=== PATIENT | female | born 1975 | race Caucasian/White ===

== ENCOUNTER 2017-04-28 18:21 | Inpatient (IN) | payer MEDICARE, SELFPAY ==
--- NOTE | 2017-04-27 17:09 | HP.PCM_ITS ---
History and Physical Date of Admission: 04/28/17 Primary Provider: Xavier NGUYEN, Timmy CC: evaluation difficulty breathing. History of Present Illness: Patient comes back in today with complaints of difficulty breathing out of the right side of her nose. She also has residual discomfort in the area of the fracture repair involving the right orbital floor blowout fracture that was repaired on November 02, 2015. Her tingling on her right cheek is much improved as she states the Neurontin has been helpful. She goes to the pain center for low back pain and she gets Neurontin from their office. She states that when she pulls on her cheeks that spreads the nose a little bit and she is able to breathe a little easier. She has no visual complaints. She presents at this time for further evaluation and treatment. Past Medical History: Seasonal Allergies Arthritis Asthma Back problems Bladder/Urinary Tract Inf Diabetes Anxiety Gallstones Headaches/Migraines Hearing Problems Reflux Rheumatoid Arthritis Vision Problems right orbital floor blowout fracture deviated nasal septum internal nasal valve stenosis difficulty breathing nasal airway obstruction Past Surgical History: Gallbladder removed 3 C-sections open reduction right orbital floor blowout fracture using combined approach ( periorbital and transantral) with titanium mesh reconstruction - 11/02/15 Family History: patient is adopted Social History: Patient currently smokes every day. patient does not drink alcohol. Medications: FAMOTIDINE 20 MG ORAL TABLET (FAMOTIDINE) ORPHENADRINE CITRATE ER 100 MG ORAL TABLET EXTENDED RELEASE 12 HOUR ( ORPHENADRINE CITRATE) DIPHENHYDRAMINE HCL 25 MG ORAL TABLET (DIPHENHYDRAMINE HCL) ONDANSETRON HCL 4 MG ORAL TABLET (ONDANSETRON HCL) MELOXICAM 15 MG ORAL TABLET (MELOXICAM) NORCO 5-325 MG ORAL TABLET (HYDROCODONE-ACETAMINOPHEN) DICYCLOMINE HCL 20 MG ORAL TABLET (DICYCLOMINE HCL) ESCITALOPRAM OXALATE 10 MG ORAL TABLET (ESCITALOPRAM OXALATE) GABAPENTIN 300 MG ORAL CAPSULE (GABAPENTIN) IBUPROFEN 800 MG ORAL TABLET (IBUPROFEN) 1 tab every 8 hrs VENTOLIN HFA AEROSOL SOLUTION (ALBUTEROL SULFATE AERS) as needed PROAIR HFA AEROSOL SOLUTION (ALBUTEROL SULFATE AERS) as needed CETIRIZINE HCL 10 MG ORAL TABLET (CETIRIZINE HCL) One tablet by mouth daily LOPERAMIDE HCL 2 MG ORAL CAPSULE (LOPERAMIDE HCL) 1 capsule as needed no more than 2 capsules daily RANITIDINE HCL 150 MG ORAL TABLET (RANITIDINE HCL) 1-2 tabs twice daily SUMATRIPTAN SUCCINATE TABLET (SUMATRIPTAN SUCCINATE TABS) 50mg 1 tab as needed onset of migraine EPIPEN 2-STACI 0.3 MG/0.3ML INJECTION SOLUTION AUTO-INJECTOR (EPINEPHRINE) as needed Allergies: NAPROSYN (Critical) * BEE STINGS (Critical) Problems: 1) Dx of right orbital floor blowout fracture, sequela (OVS37-V93.31xS) 2) Dx of Deviated nasal septum (ODJ23-L49.2) (ICD-470) 3) Dx of internal nasal valve stenosis (RJY46-V21.89) (ICD-478.19) 4) Dx of Difficulty breathing (MEG41-R15.00) (ICD-786.09) 5) Dx of nasal airway obstruction (NIY48-H34.8) (ICD-519.8) Risk Factors: Smoked Tobacco Use: Current every day smoker Cigarettes: Yes -- 1 pack per day pack(s) per day, Year started: 2006 Smokeless Tobacco Use: Never Counseled to quit/cut down: yes Passive smoke exposure: yes Drug use: no HIV high-risk behavior: no Caffeine use: 1 drinks per day Alcohol use: no Exercise: yes Type of Exercise: Walking Seatbelt use: 100 % Sun Exposure: frequently Dietary Counseling: yes Review of Systems General -Denies fever, fatigue and weight loss. Eyes-denies eye pain. ENT -Denies nasal congestion and sore throat. Has difficulty breathing out of the right side of her nose. CV -Denies chest pain or discomfort, fatigue, lightheadedness and shortness of breath with exertion. Resp -Denies cough and shortness of breath. Has difficulty breathing out of the right side of her nose. pt is current smoker. GI -Denies nausea, vomiting, diarrhea and constipation. -Denies blood in urine and urinary frequency. MS -Denies joint pain, joint swelling, back pain, stiffness, muscle weakness and arthritis. Derm -Denies skin cancer and rash. Neuro -Denies headaches and weakness. Psych -Denies anxiety and depression. Endo -Denies excessive urination and excessive thirst. Heme -Denies bleeding and abnormal bruising. Vital Signs: Patient Profile: 41 Years Old Female Height: 62 inches Weight: 148.8 pounds BMI: 27.21 BSA: 1.69 Physical Exam General: -well developed, well nourished, in no acute distress. HEENT: PERRL/EOM intact, conjunctiva and sclera clear. No numbness in the right cheek. No facial swelling. No bony tenderness. There is septal deviation to the right side. Spalding maneuver is positive suggesting internal nasal valve stenosis from scarring or trauma. She is missing a lot of teeth no obvious occlusion irregularities. Throat is clear. Neck: -no masses, thyromegaly, or abnormal cervical nodes. Lungs: -clear bilaterally to auscultation. Heart: -non-displaced PMI, chest non-tender; regular rate and rhythm, S1, S2 without murmurs, rubs, or gallops. Pulses: -Radial pulses palpable Extremities: -no clubbing, cyanosis, edema, or deformity noted with normal full range of motion of all joints. Neurologic: -no focal deficits, cranial nerves II-XII grossly intact with normal sensation, reflexes, coordination, muscle strength and tone. Skin: -no rashes Cervical Nodes: -no significant adenopathy. Axillary Nodes: -no significant adenopathy. Psych: -alert and cooperative; normal mood and affect; normal attention span and concentration. Assessment and Plan Assessment 1. Nasal airway obstruction with difficulty breathing. 2. Internal nasal valve stenosis. 3. Deviated nasal septum. 4. Right orbital floor blowout fracture repair, sequela. 5. Smoker. Plan On exam the patient has a septal deviation to the right. She also has internal nasal valve stenosis with a decrease in the angle secondary to either scarring and/or trauma. The Spalding maneuver was positive which is lateral traction on the cheek leading to increased airflow. Sometimes the swelling from the face fracture and the swelling from the repair of the facial fracture can lead to scarring in this area. I will repeat a CT scan of the facial bones and mandible including axial and coronal views. This will give me a good anatomical view of the nose. To help with her breathing difficulties, she may need a septoplasty as well as a complex nasal reconstruction with placement of cartilage mechanical and auto body car checker grafts to help increase the internal nasal valve angle a little bit to help to increase airflow by decreasing the turbulence secondary to scarring and trauma. That nasal reconstruction surgery will be done under general anesthesia with a possible surgical observation overnight stay. The patient was informed of the risks and complications of the procedure including alternatives to surgery. These were discussed with her personally. She voices understanding and wishes to proceed. Some of the risks and complications were included in a form from the [employer]. Patient is aware that she will have a dorsal nasal splint for a few weeks and nasal packing for a few days. Encouraged the patient to stop smoking as it may have deleterious effects on wound healing.
[2017-04-28] VITALS (25 sets, daily range): BP systolic 104–186; BP diastolic 75–95; PULSE 77–121; RESP 6–18; TEMP 36.3–36.9; O2SAT 96–100; BMI 26.2; BMI 26.3; BMI 26.4
[2017-04-28 09:47] LABS: Hematocrit 40.9 % (37-47); Hemoglobin 13.3 g/dl (12.0-15.0); Mean Corp Hgb Conc 32.5 g/gl (32-36); Mean Corpuscular Volume 89.1 fL (81-99); Mean Platelet Vol. 11.2 fl (6.2-12.0); Platelet Count 226 K/mm3 (150-450); RBC Distribution Width CV 13.3 % (11.6-14.6); Red Blood Count 4.59 M/mm3 (4.2-5.4); White Blood Count 11.5 K/mm3 (4.4-11.0)
[2017-04-28 09:48] LABS: Scan Indicated on CBC? Y/N NO
[2017-04-28 09:51] LABS: International Normalized Ratio 0.9; Partial Thromboplast Time 27.9 Seconds (24.1-36.2); Prothrombin Time (Protime)PT. 11.5 SECONDS (11.7-14.9)
[2017-04-28 10:02] LABS: AST(SGOT) 16 U/L (15-37); Alanine Aminotransfer ALT/SGPT 33 U/L (13-56); Alkaline Phosphatase 103 U/L (45-117); Anion Gap 10 (5-15); BUN 8 mg/dL (7-18); BUN/Creat Ratio 11.9 RATIO (10-20); Bilirubin, Direct 0.05 mg/dL (0.00-0.30); Calcium,Total 8.3 mg/dL (8.5-10.1); Chloride 102 mmol/L (98-107); Creatinine, Serum 0.67 mg/dL (0.55-1.02); EST Glomerular Filtration Rate 103 mL/min (>60); Est Glom Filt Rate - Afr Amer 125 mL/min (>60); Estimated Creatinine Clearance 88.28 ml/min; Globulin 3.2 g/dL (2.2-4.2); Glucose 245 mg/dL (70-110); Potassium 3.8 mmol/L (3.5-5.1); Protein, Total 6.2 g/dL (6.4-8.2); Sodium Level 135 mmol/L (136-145)
--- NOTE | 2017-04-28 10:25 | SEP_PTH ---
PATIENT: COLLEEN MILIAN LOC: [facility]3 U#:[id number] AGE/SX: 41/F ROOM: MS311 RE04/28/[address]: Dr. Roberto Holden MD : [id number] BED: 1 DIS: 05/01/2017 SPEC #: [id number] RECD: 04/29/17 10:41 STATUS: REBECCA REQ #: [id number] KAJAL: 04/28/17 10:[address]: Roberto Holden DEPT: SURGICAL PATHOLOGY RECD BY: Jose De Jesus Tijerina ENTERED: 04/29/17 10:41 SP TYPE: SEPTUM OTHR DR: MD Dr. Ephraim Lujan DO Dr. Victor Velasquez, MD Tissues: Nasal septum, NOS Procedures: Decalcification bone/plaque Surgery Specimen Level III Comments: @ Ordering doctor for SUIII edited from to @ by RGOOD at 04/30/17 0832 @ Submitting doctor edited from to @ by RGOOD at 04/30/17 0832 HEADER OPERATION: Septoplasty, submucous resection, placement of cartilage PRE-OP DIAGNOSIS: Nasal airway obstruction with difficulty breathing; internal nasal valve stenosis; deviated nasal septum TISSUE SUBMITTED: Septal cartilage MICROSCOPIC DIAGNOSIS Nasal septal cartilage, septoplasty: Fragments of hyaline cartilage and bone with no significant pathologic change (clinically deviated septum). AM:cameron 05/01/17 MICROSCOPIC DESCRIPTION Slides are reviewed. GROSS DESCRIPTION Received in fixative is one container labeled with the patient's name and designated septal cartilage. The specimen consists of multiple fragments of cartilage and bone that in aggregate measure 3 x 2.5 x 0.3 cm. The entire specimen is submitted in one cassette after decalcification. / SJ:cameron 04/29/17 TC:5 CPT: 97914, 35454
[2017-04-28] MEDS: Clindamycin 900 MG/50 ML BAG 75 MG IV (12:22)
[2017-04-28] MEDS: Methylene Blue 1% 100 MG/10 ML VIAL (12:58)
[2017-04-28] MEDS: Phenylephrine 0.25% 15 ML NASAL.SRY NASAL (12:58)
[2017-04-28] MEDS: Mupirocin Ointment 22gm Tube 1 APPLIC (15:13)
--- NOTE | 2017-04-28 15:43 | PCM.IMDPSTOP ---
Immediate Post-Op Note Date of Procedure: 04/28/17 Primary Surgeon/Physician: Roberto Holden nutritional yeast supervisor: None Pre-Operative Diagnosis: 1. Nasal airway obstruction with difficulty breathing. 2. Internal nasal valve vestibular stenosis. 3. Deviated nasal septum. 4. Right orbital floor blowout fracture repair, sequela. 5. Smoker. Post-Operative Diagnosis: Same. Surgery/Procedure Performed:: 1. Septoplasty with submucous resection. 2. Repair internal nasal vestibular stenosis with placement bilateral cartilage front end web developer 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 Description of Surgical Findings:: Patient comes back in today with complaints of difficulty breathing out of the right side of her nose. She also has residual discomfort in the area of the fracture repair involving the right orbital floor blowout fracture that was repaired on November 02, 2015. Her tingling on her right cheek is much improved as she states the Neurontin has been helpful. She goes to the pain center for low back pain and she gets Neurontin from their office. She states that when she pulls on her cheeks that spreads the nose a little bit and she is able to breathe a little easier. She has no visual complaints. Today the patient underwent septoplasty with submucous resection and repair internal nasal vestibular stenosis with placement bilateral cartilage front end web developer 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 Urine Output - 200 ml. IV Fluids - 1500 ml. I used Merocel Rebolledo Nasal Airway Dressing x 2. Reference Number - [id number]. Lot Number - [id number]. Expiration - June 29, 2019. I used external dorsal nasal splint. ADDENDUM: While the patient was in PACU, she developed respiratory issues and had to be reintubated. She was then sent to ICU for continued monitoring and treatment. Estimated Blood Loss: 250 ml. Specimen's removed: Nasal cartilage to Pathology. Drains: None. Type of Anesthesia:: General - Admit VTE Documentation VTE Present on Admission: No VTE Mechan Device Prophylaxis: SCD's VTE Pharm Prophylaxis ordered?: Yes
--- NOTE | 2017-04-28 16:39 | NURSING ---
PT DIAPHORETIC, NOT RESPONSIVE, NOTED IN H AND P PT HAS H/O DIABETES, ACCU CHECK READS 323. DR ROYAL NOTIFIED BY PHONE. IVF WIDE OPEN AT THIS TIME. WILL CONTINUE TO MONITOR PT.
--- NOTE | 2017-04-28 17:10 | EKG12_ITS ---
Test Reason : Blood Pressure : / mmHG Vent. Rate : 105 BPM Atrial Rate : 105 BPM P-R Int : 144 ms QRS Dur : 076 ms QT Int : 356 ms P-R-T Axes : 041 000 027 degrees QTc Int : 470 ms Sinus tachycardia Otherwise normal ECG When compared with ECG of 07-SEP-2016 01:00, No significant change was found Confirmed by FARHAT NGUYEN, BRODERICK ([id number]), general expeditor KERLINE MILIAN ([id number]) on 05/05/2017 8:51:19 AM Referred By: Roberto Holden Confirmed By:BRODREICK DOUGHERTY MD
--- NOTE | 2017-04-28 17:10 | PCM.CONS.GEN ---
Problem List (1) Allergic rhinitis Status: Chronic Qualifiers: Allergic rhinitis trigger: unspecified Allergic rhinitis seasonality: unspecified seasonality Qualified Code(s): J30.9 - Allergic rhinitis, unspecified (2) Asthma Status: Chronic Qualifiers: Asthma severity: unspecified severity Asthma persistence: unspecified Asthma complication type: unspecified Qualified Code(s): J45.909 - Unspecified asthma, uncomplicated (3) Diabetes mellitus, type II Status: Chronic Qualifiers: Diabetes mellitus complication status: with unspecified complications Diabetes mellitus terminal block assembler insulin use: without halfway use Qualified Code(s): E11.8 - Type 2 diabetes mellitus with unspecified complications (4) Migraine Status: Chronic Qualifiers: Migraine type: unspecified Status migrainosus presence: without status migrainosus Intractability: not intractable Qualified Code(s): G43.909 - Migraine, unspecified, not intractable, without status migrainosus (5) Anxiety and depression Status: Chronic (6) Rheumatoid arthritis Status: Chronic Qualifiers: Rheumatoid arthritis location: unspecified site Rheumatoid factor presence: unspecified presence Qualified Code(s): M06.9 - Rheumatoid arthritis, unspecified (7) Overweight (BMI 25.0-29.9) Status: Chronic (8) Smoker Status: Chronic Comment: F17.200 Reason for Consult Date of Consultation: 04/28/17 Reason for Consultation: CODE blue, difficult airway in PACU History of Present Illness: The patient is a 41 y/o F w/ PMHx: Allergic Rhinitis, Asthma, Tobacco use, Diabetes mellitus type II, Overweight, Anxiety and Depression, Migraines, Rheumatoid Arthritis with history of prior facial trauma s/p right orbital floor intervention prior with ongoing difficulty breathing out of the right nare as well as right facial paresthesias associated prompting scheduled presentation to the [facility] for planned intervention per Dr. Holden. Patient underwent septoplasty with submucous resection w/ repair of internal nasal vestibular stenosis with placement of bilateral cartilage auto damage trainee 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 Following operative intervention and transition to PACU, patient was noted to be less responsive, became notably diaphoretic and then appeared to have respiratory distress prompting intubation in the PACU. Eventually airway obtained and patient placed on ventilator. Basic labs as well as ABG were ordered and pending upon evaluation as well as EKG, CXR. Past Medical History Past Medical History (Chronic Problems): Chronic Problems Allergic rhinitis (Chronic) Asthma (Chronic) Diabetes mellitus, type II (Chronic) Migraine (Chronic) Anxiety and depression (Chronic) Rheumatoid arthritis (Chronic) Overweight (BMI 25.0-29.9) (Chronic) Smoker (Chronic) F17.200 Allergies mold Allergy (Verified 04/27/17 15:54) Itching naproxen Allergy (Verified 04/27/17 15:54) Unknown venom-honey bee [bee venom (honey bee)] Allergy (Verified 04/27/17 15:54) Swelling amoxicillin Adverse Reaction (Verified 04/27/17 15:54) Upset Stomach guaifenesin [From Robitussin] Adverse Reaction (Verified 04/27/17 15:54) Nausea Home Medications: Ambulatory Orders Medication Instructions Recorded Ranitidine [Zantac] 150 mg PO BID PRN 12/30/13 Epinephrine [Epi Pen] 0.3 mg IM X1 PRN 10/31/15 Sumatriptan Succinate [Imitrex] 50 mg PO .X1 PRN PRN 10/31/15 Escitalopram Oxalate [Lexapro] 20 mg PO DAILY 11/24/15 DiphenhydrAMINE [Benadryl] 25 mg PO TID PRN PRN #20 capsule 02/24/16 Fluticasone 0.05% [Flonase Nasal 1 spray NASAL DAILY 05/01/16 [place]] Albuterol Inhaler [Ventolin Hfa 1 - 2 puff INHALATION Q4H PRN PRN 06/13/16 (SP)] Ibuprofen [Motrin] 800 mg PO TID PRN PRN #20 tablet 07/20/16 Gabapentin [Neurontin] 300 mg PO TID 07/25/16 Albuterol Aerosols [Ventolin 2.5 mg INHALATION Q4H PRN PRN #30 08/05/16 Aerosols] vial Aspirin/Acetaminophen/Caffeine 1 each PO PRN PRN 04/27/17 [Excedrin Migraine Caplet] Surgical History: - - Septoplasty with submucous resection, repair of internal nasal vestibular stenosis with placement of bilateral cartilage auto damage trainee grafts from the nasal septum, cholecystectomy, 3 and 3 C-sections, open reduction right orbital floor blowout fracture using combined approach with periorbital and transantral with titanium placement, mesh reconstruction. Psychiatric History: Anxiety, Depression EMERGENCY DEPARTMENT AIDE History: No pertinent EMERGENCY DEPARTMENT AIDE history Lives: Spouse/ Significant Other Smoking Status: Current every day smoker Tobacco Use: Cigarettes Alcohol: None Drugs: None - *Family History Maternal History Items: - - Family history is unknown as she is adopted. Paternal History Items: - - Family history is unknown as she is adopted. Review of Systems Unable to obtain accurate/complete ROS d/t: Unable to obtain ROS, post-op, sedated, being intubated. Subjective: Seated upright in the PACU bed, currently having airway placed, no breathing on her own. Objective: Physical Examination: General: not awake, not alert, unable to answer orientations questions, seated upright in the PACU bed, recent OR, sedated, airway being placed. Skin: normal color, turgor, no icterus, cyanosis except recent septoplasty with dressing to the nare region. HEENT: AT/NC except recent septoplasty intervention, dressing in place, unable to assess EOM, glazed pupils, sluggish BL, dry MM, airway being placed. Lungs: Airway being placed, symmetric rise BL w/ bagging, coarse diffusely, diminished bases to anterior and side examination, no wheezing. Heart: Tachycardic with regular rhythm; no gallop, rub audible. Abdomen: soft, overweight, NTTP, ND, hypoactive BS, no HSM. Extremities: no cyanosis, clubbing, or edema. Neurological: not awake, not alert, unable to answer orientations questions, seated upright in the PACU bed, recent OR, sedated, airway being placed; cognitive function not baseline intact; pupils glazed, sluggish, cranial nerves deferred, not responsive to stimuli, strength deferred. Psychiatric: affect appears flat, no acute evidence of depressive or anxiety feelings. - Physical Exam Vital Signs Temp Pulse Resp BP Pulse Ox 97.8 F 114 H 16 152/75 H 98 04/28/17 16:03 04/28/17 16:30 04/28/17 16:30 04/28/17 16:30 04/28/17 16:30 Oxygen Flow Rate 6 Oxygen Delivery Method Simple Mask Weight: 143 lb 11.862 oz Body Mass Index (BMI) 26.2 Finger Stick Blood Glucose 120 Intake and Output for Last 24 Hours 04/26/17 04/27/17 04/28/17 23:59 23:59 23:59 Output Total 200 / 200 Balance -200 / -200 Laboratory Tests Past 24 Hrs 04/28/17 04/28/17 04/28/17 09:34 09:34 09:34 WBC 11.5 H RBC 4.59 Hgb 13.3 Hct 40.9 MCV 89.1 MCH 29.0 MCHC 32.5 RDW 13.3 RDW Differential 43.0 Plt Count 226 MPV 11.2 PT 11.5 L INR 0.9 APTT 27.9 Sodium 135 L Potassium 3.8 Chloride 102 Carbon Dioxide 23.0 Anion Gap 10 BUN 8 Creatinine 0.67 Estim Creat Clear Calc 88.28 Est GFR (MDRD) Af Amer 125 Est GFR (MDRD) Non-Af 103 BUN/Creatinine Ratio 11.9 Glucose 245 H Calcium 8.3 L Total Bilirubin 0.50 Direct Bilirubin 0.05 AST 16 ALT 33 Alkaline Phosphatase 103 Total Protein 6.2 L Albumin 3.0 L Globulin 3.2 Assessment/Plan The patient is a 41 y/o F w/ PMHx: Allergic Rhinitis, Asthma, Tobacco use, Diabetes mellitus type II, Overweight, Anxiety and Depression, Migraines, Rheumatoid Arthritis with history of prior facial trauma s/p right orbital floor intervention prior with ongoing difficulty breathing out of the right nare as well as right facial paresthesias associated prompting scheduled presentation to the [facility] for planned intervention per Dr. Holden. (1) Unresponsive with Acute Hypoxic Respiratory Failure Post-operatively: Unclear Specific etiology, possibly secondary to recent sedation, anesthetics, successfully re-intubated in the PACU w/ appropriate oxygenation following, will transition to the ICU, maintain intubation, continue sedation, pending ABG, pending CBC, BMP, cardiac enzymes, EKG, will place OG given recent nare intervention, obtain post ETT placement and OG CXR/KUB, continue ATC duonebs, PRN albuterol, ICU physician consulted. (2) Prior facial trauma s/p right orbital floor w/ ongoing difficulty breathing out of the right nare w/ R facial paresthesias: OR 04/28/[address] Holden s/p R septoplasty with submucous resection w/ repair of internal nasal vestibular stenosis with placement of bilateral cartilage auto damage trainee 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 Post-operatively noted clindamycin, IV solumedrol and low dose lovenox regimen, will defer to Dr. Holden. (3) Chronic Asthma: Intubated as noted, maintain on ATC duonebs, PRN albuterol, HOB, IS parameters. (4) Diabetes mellitus type II: NPO status, HgbA1c pending, post-op levels 200s, accu checks q 6 hours w/ ISS. (5) Rheumatoid Arthritis: Regimen no listed in home segment, currently on IV solumedrol per Dr. Holden. (6) Tobacco Abuse: Encouraged cessation, inpatient consultation per RT, NR if desired. (7) Obesity: Weight loss and lifestyle changes will be encouraged. (8) DVT Prophylaxis: SCDs, renally dosed lovenox per Dr. Holden preference already ordered. Code Visit Office Visits / Consults: [id number] IP Consult L5
[2017-04-28 17:21] LABS: Allen Test POS; Base Excess -1 mmol/L (-2 to +2); Bicarbonate 29.3 mmol/L (22-26); Blood Gas Specimen Type ART; FI02 100; PO2 362 mmHG (75-100); SITE R Radial; SO2 100 % (95-99); Time Given 1700; Total Carbon Dioxide 32 mmol/L; pCO2 104.7 mmHg (35-45); pH 7.06 (7.35-7.45)
--- NOTE | 2017-04-28 17:22 | CON.PCM_ITS ---
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: without mcfp use Qualified Code( s): E11.8 - Type 2 diabetes mellitus with unspecified complications (4) Migraine Status: Chronic Qualifiers: Migraine type: unspecified Status migrainosus presence: without status migrainosus Intractability: not intractable Qualified Code(s): G43.909 - Migraine, unspecified, not intractable, without status migrainosus (5) Anxiety and depression Status: Chronic (6) Rheumatoid arthritis Status: Chronic Qualifiers: Rheumatoid arthritis location: unspecified site Rheumatoid factor presence : unspecified presence Qualified Code(s): M06.9 - Rheumatoid arthritis, unspecified (7) Overweight (BMI 25.0-29.9) Status: Chronic (8) Smoker Status: Chronic Comment: F17.200 Reason for Consult Date of Consultation: 04/28/17 Reason for Consultation: CODE blue, difficult airway in PACU History of Present Illness: The patient is a 41 y/o F w/ PMHx: Allergic Rhinitis, Asthma, Tobacco use, Diabetes mellitus type II, Overweight, Anxiety and Depression, Migraines, Rheumatoid Arthritis with history of prior facial trauma s/p right orbital floor intervention prior with ongoing difficulty breathing out of the right nare as well as right facial paresthesias associated prompting scheduled presentation to the [facility] for planned intervention per Dr. Holden. Patient underwent septoplasty with submucous resection w/ repair of internal nasal vestibular stenosis with placement of bilateral cartilage mosaic tile maker 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 Following operative intervention and transition to PACU, patient was noted to be less responsive, became notably diaphoretic and then appeared to have respiratory distress prompting intubation in the PACU. Eventually airway obtained and patient placed on ventilator. Basic labs as well as ABG were ordered and pending upon evaluation as well as EKG, CXR. Past Medical History Past Medical History (Chronic Problems): Chronic Problems Allergic rhinitis (Chronic) Asthma (Chronic) Diabetes mellitus, type II (Chronic) Migraine (Chronic) Anxiety and depression (Chronic) Rheumatoid arthritis (Chronic) Overweight (BMI 25.0-29.9) (Chronic) Smoker (Chronic) F17.200 Allergies mold Allergy (Verified 04/27/17 15:54) Itching naproxen Allergy (Verified 04/27/17 15:54) Unknown venom-honey bee [bee venom (honey bee)] Allergy (Verified 04/27/17 15:54) Swelling amoxicillin Adverse Reaction (Verified 04/27/17 15:54) Upset Stomach guaifenesin [From Robitussin] Adverse Reaction (Verified 04/27/17 15:54) Nausea Home Medications: Ambulatory Orders Medication Instructions Recorded Ranitidine [Zantac] 150 mg PO BID PRN 12/30/13 Epinephrine [Epi Pen] 0.3 mg IM X1 PRN 10/31/15 Sumatriptan Succinate [Imitrex] 50 mg PO .X1 PRN PRN 10/31/15 Escitalopram Oxalate [Lexapro] 20 mg PO DAILY 11/24/15 DiphenhydrAMINE [Benadryl] 25 mg PO TID PRN PRN #20 capsule 02/24/16 Fluticasone 0.05% [Flonase Nasal 1 spray NASAL DAILY 05/01/16 [place]] Albuterol Inhaler [Ventolin Hfa 1 - 2 puff INHALATION Q4H PRN PRN 06/13/16 (SP)] Ibuprofen [Motrin] 800 mg PO TID PRN PRN #20 tablet 07/20/16 Gabapentin [Neurontin] 300 mg PO TID 07/25/16 Albuterol Aerosols [Ventolin 2.5 mg INHALATION Q4H PRN PRN #30 08/05/16 Aerosols] vial Aspirin/Acetaminophen/Caffeine 1 each PO PRN PRN 04/27/17 [Excedrin Migraine Caplet] Surgical History: - - Septoplasty with submucous resection, repair of internal nasal vestibular stenosis with placement of bilateral cartilage mosaic tile maker grafts from the nasal septum, cholecystectomy, 3 and 3 C-sections, open reduction right orbital floor blowout fracture using combined approach with periorbital and transantral with titanium placement, mesh reconstruction. 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 Paternal History Items: - - Family history is unknown as she is adopted. Review of Systems Unable to obtain accurate/complete ROS d/t: Unable to obtain ROS, post-op, sedated, being intubated. Subjective: Seated upright in the PACU bed, currently having airway placed, no breathing on her own. Objective: Physical Examination: General: not awake, not alert, unable to answer orientations questions, seated upright in the PACU bed, recent OR, sedated, airway being placed. Skin: normal color, turgor, no icterus, cyanosis except recent septoplasty with dressing to the nare region. HEENT: AT/NC except recent septoplasty intervention, dressing in place, unable to assess EOM, glazed pupils, sluggish BL, dry MM, airway being placed. Lungs: Airway being placed, symmetric rise BL w/ bagging, coarse diffusely, diminished bases to anterior and side examination, no wheezing. Heart: Tachycardic with regular rhythm; no gallop, rub audible. Abdomen: soft, overweight, NTTP, ND, hypoactive BS, no HSM. Extremities: no cyanosis, clubbing, or edema. Neurological: not awake, not alert, unable to answer orientations questions, seated upright in the PACU bed, recent OR, sedated, airway being placed; cognitive function not baseline intact; pupils glazed, sluggish, cranial nerves deferred, not responsive to stimuli, strength deferred. Psychiatric: affect appears flat, no acute evidence of depressive or anxiety feelings. - Physical Exam Vital Signs Temp Pulse Resp BP Pulse Ox 97.8 F 114 H 16 152/75 H 98 04/28/17 16:03 04/28/17 16:30 04/28/17 16:30 04/28/17 16:30 04/28/17 16:30 Oxygen Flow Rate 6 Oxygen Delivery Method Simple Mask Weight: 143 lb 11.862 oz Body Mass Index (BMI) 26.2 Finger Stick Blood Glucose 120 Intake and Output for Last 24 Hours 04/26/17 04/27/17 04/28/17 23:59 23:59 23:59 Output Total 200 / 200 Balance -200 / -200 Laboratory Tests Past 24 Hrs 04/28/17 04/28/17 04/28/17 09:34 09:34 09:34 WBC 11.5 H RBC 4.59 Hgb 13.3 Hct 40.9 MCV 89.1 MCH 29.0 MCHC 32.5 RDW 13.3 RDW Differential 43.0 Plt Count 226 MPV 11.2 PT 11.5 L INR 0.9 APTT 27.9 Sodium 135 L Potassium 3.8 Chloride 102 Carbon Dioxide 23.0 Anion Gap 10 BUN 8 Creatinine 0.67 Estim Creat Clear Calc 88.28 Est GFR (MDRD) Af Amer 125 Est GFR (MDRD) Non-Af 103 BUN/Creatinine Ratio 11.9 Glucose 245 H Calcium 8.3 L Total Bilirubin 0.50 Direct Bilirubin 0.05 AST 16 ALT 33 Alkaline Phosphatase 103 Total Protein 6.2 L Albumin 3.0 L Globulin 3.2 Assessment/Plan The patient is a 41 y/o F w/ PMHx: Allergic Rhinitis, Asthma, Tobacco use, Diabetes mellitus type II, Overweight, Anxiety and Depression, Migraines, Rheumatoid Arthritis with history of prior facial trauma s/p right orbital floor intervention prior with ongoing difficulty breathing out of the right nare as well as right facial paresthesias associated prompting scheduled presentation to the [facility] for planned intervention per Dr. Holden. (1) Unresponsive with Acute Hypoxic Respiratory Failure Post-operatively: Unclear Specific etiology, possibly secondary to recent sedation, anesthetics, successfully re-intubated in the PACU w/ appropriate oxygenation following, will transition to the ICU, maintain intubation, continue sedation, pending ABG , pending CBC, BMP, cardiac enzymes, EKG, will place OG given recent nare intervention, obtain post ETT placement and OG CXR/KUB, continue ATC duonebs, PRN albuterol, ICU physician consulted. (2) Prior facial trauma s/p right orbital floor w/ ongoing difficulty breathing out of the right nare w/ R facial paresthesias: OR 04/28/[address] Holden s/p R septoplasty with submucous resection w/ repair of internal nasal vestibular stenosis with placement of bilateral cartilage mosaic tile maker 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 Post-operatively noted clindamycin, IV solumedrol and low dose lovenox regimen, will defer to Dr. Holden. (3) Chronic Asthma: Intubated as noted, maintain on ATC duonebs, PRN albuterol, HOB, IS parameters. (4) Diabetes mellitus type II: NPO status, HgbA1c pending, post-op levels 200s, accu checks q 6 hours w/ ISS. (5) Rheumatoid Arthritis: Regimen no listed in home segment, currently on IV solumedrol per Dr. Holden. (6) Tobacco Abuse: Encouraged cessation, inpatient consultation per RT, NR if desired. (7) Obesity: Weight loss and lifestyle changes will be encouraged. (8) DVT Prophylaxis: SCDs, renally dosed lovenox per Dr. Holden preference already ordered. Code Visit Office Visits / Consults: [id number] IP Consult L5
[2017-04-28 17:34] LABS: Absolute Lymphocyte Count 4.45 X10^3/ul (0.83-4.51); Absolute Neutrophil Count 15.3 X10^3/uL (2.0-7.7); Basophil# 0.02 X10^3/uL; Basophil% 0.1 % (0-1); Eosinophils% 0.5 % (0-5); Hematocrit 40.2 % (37-47); Hemoglobin 12.5 g/dl (12.0-15.0); Lymphocyte # 4.45 X10^3/ul (4.0); Lymphocyte % 21.6 % (19-41); Mean Corp Hgb Conc 31.1 g/gl (32-36); Mean Corpuscular Hgb 28.5 pg (27.0-32.0); Mean Corpuscular Volume 91.8 fL (81-99); Mean Platelet Vol. 11.1 fl (6.2-12.0); Monocyte# 0.46 X10^3/uL; Monocyte% 2.2 % (0-10); Neutrophil # 15.33 X10^3/uL (2.7-7.7); Neutrophil % 74.6 % (47-70); POSITIVE COUNT NO; POSITIVE DIFFERENTIAL NO; POSITIVE MORPHOLOGY NO; Platelet Count 275 K/mm3 (150-450); RBC Distribution Width CV 13.4 % (11.6-14.6); RBC Distribution Width SD 44.8 fl (35.1-43.9); Red Blood Count 4.38 M/mm3 (4.2-5.4); White Blood Count 20.6 K/mm3 (4.4-11.0)
[2017-04-28 17:43] LABS: Anion Gap 8 (5-15); BUN 9 mg/dL (7-18); BUN/Creat Ratio 12.9 RATIO (10-20); Calcium,Total 7.9 mg/dL (8.5-10.1); Chloride 100 mmol/L (98-107); EST Glomerular Filtration Rate 98 mL/min (>60); Est Glom Filt Rate - Afr Amer 119 mL/min (>60); Estimated Creatinine Clearance 84.49 ml/min; Glucose 388 mg/dL (70-110); Potassium 4.7 mmol/L (3.5-5.1); Sodium Level 134 mmol/L (136-145)
--- NOTE | 2017-04-28 17:55 | NURSING ---
SEE LEGAL INSTRUMENTS EXAMINER DOCUMENTATION FOR VS.
--- NOTE | 2017-04-28 18:06 | NURSING ---
DR FREGOSO AT BEDSIDE, CHANGING NASAL DRESSING AT THIS TIME. PREPARING TO TRANSPORT PT TO ICU.
[2017-04-28 18:16] LABS: Allen Test POS; Base Excess -2 mmol/L (-2 to +2); Blood Gas Specimen Type ART; FI02 60; Mode A-C; O2 Delivery Device Vent; PEEP 5; PO2 69 mmHG (75-100); RR 16; SITE L Radial; SO2 87 % (95-99); Time Given 1800; Total Carbon Dioxide 29 mmol/L; Vt 450; pH 7.16 (7.35-7.45)
--- NOTE | 2017-04-28 18:27 | CHAPLAIN ---
Type of Pastoral Visit ___ Initial Visit ___ Follow-up Visit ___ On-call Visit ___ General Patient Visit ___ Spiritual Assessment ___ Family Conference ___ Bereavement ___ Rapid Response _x__ Code Blue ___ Other (describe below) Pastoral Care Referral From ___ Patient ___ Family ___ Nurse ___ Physician ___ Frozen Pie Maker ___ Replenishment Analyst _x__ Other (describe below) Sacrament/Intervention ___ Active listening ___ Anointing ___ Religious ___ Bereavement ___ Communion ___ Eirka exploration ___ ___ Life review ___ Prayer ___ Reconciliation ___ Sacrament of Sick _x__ Supportive presence ___ Wedding ___ Other (describe below) Pastoral Comments made a search for family members; no one found
--- NOTE | 2017-04-28 18:55 | RAD_ITS ---
STUDY: X-RAY CHEST REASON FOR EXAM: Female, 41 years old. ET tube placement, OG tube placement TECHNIQUE: Single AP portable view of the chest. COMPARISON: 11/10/2016. FINDINGS: Endotracheal tube tip 1 cm above the lizandro. OG tube tip in the stomach. EKG lines overlying the chest. The lungs are clear and expanded. There is no demonstrated pleural abnormality. Normal size heart. Normal mediastinum and kishan. Normal visualized pulmonary arteries. Normal visualized aortic arch and descending thoracic aorta. Normal visualized thoracic spine. Normal visualized ribs, clavicles, and shoulders. There is no demonstrated abnormality of the visualized soft tissue structures of the upper abdomen. RAD/Chest 1 View (Portable) IMPRESSION: Endotracheal tube tip is 1 cm above the lizandro. OG tube tip in the stomach. Electronically Signed: Nader Lutz DO at 20:09 EST , Service support ,
[2017-04-28 19:34] LABS: Magnesium 1.9 mg/dL (1.6-2.6)
[2017-04-28 20:14] LABS: Hemoglobin A1c 8.5 % (4.2-6.3)
[2017-04-28] MEDS: Lactated Ringers 1,000 ML 60 ML IV (20:52)
[2017-04-28] MEDS: MethylPREDNISolone 125 MG/2 ML Vial IV (20:53)
[2017-04-28 21:16] LABS: Base Excess 4 mmol/L (-2 to +2); Bicarbonate 28.2 mmol/L (22-26); Blood Gas Specimen Type ART; FI02 50; Mode A-C; O2 Delivery Device Vent; PEEP 5; PO2 189 mmHG (75-100); RR 16; SITE R Radial; SO2 100 % (95-99); Total Carbon Dioxide 29 mmol/L; Vt 450; pCO2 42.9 mmHg (35-45); pH 7.43 (7.35-7.45)
[2017-04-28] MEDS: Famotidine 20 MG Tablet GT (22:32)
[2017-04-28] MEDS: Clindamycin 600 MG/50 ML BAG 100 MG IV (22:32)
[2017-04-28] MEDS: Ipratropium/Albuterol Sulfate 3 ML AMPUL.NEB INHALATION (22:34)
--- NOTE | 2017-04-28 22:34 | PCM.OPRPT ---
Report of Operation Date of Procedure: 04/28/17 Pre-Operative Diagnosis: 1. Nasal airway obstruction with difficulty breathing. 2. Internal nasal valve stenosis. 3. Deviated nasal septum. 4. Right orbital floor blowout fracture repair, sequela. 5. Smoker. Post-Operative Diagnosis: Same. Surgery/Procedure Performed:: 1. Septoplasty with submucous resection. 2. Repair of internal nasal vestibular stenosis with placement of bilateral cartilage oncology registrar 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 Description of Surgical Findings:: Patient comes back in today with complaints of difficulty breathing out of the right side of her nose. She also has residual discomfort in the area of the fracture repair involving the right orbital floor blowout fracture that was repaired on November 02, 2015. Her tingling on her right cheek is much improved as she states the Neurontin has been helpful. She goes to the pain center for low back pain and she gets Neurontin from their office. She states that when she pulls on her cheeks that spreads the nose a little bit and she is able to breathe a little easier. She has no visual complaints. The patient was informed of the risks and complications of the procedure including alternatives to surgery. These were discussed with her personally. She voices understanding and wishes to proceed. Some of the risks and complications were included in a form from the [employer]. Patient is aware that she will have a dorsal nasal splint for a few weeks and nasal packing for a few days. Encouraged the patient to stop smoking as it may have deleterious effects on wound healing. Urine Output - 200 ml. IV Fluids - 1500 ml. I used Merocel Rebolledo Nasal Airway Dressing x 2. Reference Number - 084170. Lot Number - [id number]. Expiration - June 29, 2019. I used external dorsal nasal splint. vice president of business development: None Type of Anesthesia:: General Specimen's removed: Nasal cartilage to Pathology. Drains: None. Estimated Blood Loss (mL): 250 ml. Fluids Replaced: 1700 ml (IV Fluids - 1500 ml, Urine Output - 200 ml). Description of Procedure: The patient was taken to the operating room and in the supine position, she was placed under general anesthesia and her face was prepped and draped in the usual fashion. SCDs were placed for DVT prophylaxis. Perioperative antibiotics were given intravenously. Procedure was performed under loupe magnification and headlight illumination. I used methylene blue ink and with a 25-gauge needle, I tattooed the columellar skin with the vestibular skin to aid in wound closure. I then made a stair-step incision on the proximal portion of the columella for the incision. This was infiltrated with Xylocaine and epinephrine. I also infiltrated the nasal septum with Xylocaine and epinephrine. I then placed Teja-Synephrine on cottonoid pledgets into both nasal passages to help with vasoconstriction. I used 4 cottonoid pledgets for each nostril. After waiting for 10 minutes for the anesthetic to take effect, the cottonoid pledgets were then removed and counted and there were 4 removed from each nasal passage. I then made a stair-step incision in the columella down through the subcutaneous tissue until the medial crura of the lower lateral cartilage was seen. I then dissected up toward the middle crura. I then made an infracartilaginous incision into both nasal passages around the inferior aspect of the lower lateral cartilages, and I was then able to free up the dorsal nasal skin with an open rhinoplasty approach. I dissected the lower lateral cartilage away from the soft tissue until I got access to the septum as well as the upper lateral cartilages. The upper lateral cartilages were distorted and adherent to the septum, thus explaining the obstruction and the internal nasal valve problems. Then, I dissected the septal cartilage away from the mucoperichondrium using a Waldo elevator. I dissected down to the perpendicular plate of the ethmoid bone as well as to the anterior nasal spine. There was displacement of the caudal septum off of the midline to the left side. There were some cartilaginous and bony spurs at the base that were removed using rongeurs. This allowed me to bring the caudal septum back into the midline on the anterior nasal spine. I then removed a central portion of the nasal septal cartilage to help improve the septum as well as to help with the creation of cartilage oncology registrar grafts. I kept 1 cm margin of cartilage for cartilaginous struts both on the nasal dorsum and the caudal nasal septum. The cartilage that was removed was then placed in a bloody-soaked sponge. I then made an incision on the septum to free up the upper lateral cartilages bilaterally. They were so distorted I had to free the upper lateral cartilages off of the soft tissue in order to straighten them out before placement of the cartilage oncology registrar grafts into the upper lateral cartilage area to improve the internal nasal valve angle and improve her breathing issues. The size of the cartilage oncology registrar grafts that I used from the nasal septum was about 1.5 cm x 4 mm. I placed them in both nasal passages and secured them to the upper lateral cartilage as well as to the nasal septum using 5-0 Vicryl horizontal mattress sutures and 6-0 PDS sutures. I then stabilized the caudal septum on the midline by securing the medial crura of the lower lateral cartilages to the caudal edge of the nasal septum using 6-0 PDS simple interrupted suture. Because some of the septal cartilage was removed, this was a submucous section. After straightening of the septum and improving the internal nasal valve angle, the patient had a lot more room in her nasal passages as evidenced by my ability to put my small finger into both nasal passages without much obstruction as was present preoperatively. Her lower lateral cartilages were a little distorted and the cephalic portion of the lower lateral cartilages were excised leaving a height of lower lateral cartilages of a cm. The lower lateral cartilages were approximated together at the dome level with 6-0 PDS suture. This improved the shape and contour of her nasal tip. I then irrigated out the wounds with saline. I then closed the stair-step incision on the columella using 5-0 Monocryl interrupted sutures for deep dermis and subcutaneous tissue. The skin was approximated using 6-0 Prolene simple interrupted sutures. The infracartilaginous incision was then approximated using 5-0 chromic simple interrupted sutures. I then placed nasal foam packing with a breathing tube covered with Bactroban ointment into both nasal passages. I first irrigated out both nasal passages for any residual blood. I also suctioned out any residual blood as well. I then placed a dorsal nasal splint for stability for a few days. This was placed on the dorsum of the nose after placing Steri-Strips first on the skin. I then used a 2 x 2 gauze to help absorb any oozing from the nasal passages and packing postoperatively. The patient tolerated the procedure well and will be sent to recovery room in satisfactory condition. She was supposed to be sent upstairs for surgical observation overnight stay in the hospital. Once she is tolerating po analgesia, she will be sent home on antibiotics and pain medicine. She will follow up in the office next week for removal of the nasal packing, and at that point, she will continue to wear the dorsal nasal splint for 2 weeks all the time and then for an additional 2 weeks just at night. This will be reminded to the patient to take it easy during the initial postoperative period to minimize trauma to the nose to allow proper healing. She will keep her head elevated during the initial postoperative period and be on a lifting restriction. Anticipate she will get some swelling around her eyes and she can apply cold compresses as needed for periorbital swelling. The nasal columellar sutures will be removed in a week or two. However while the patient was in the PACU, she developed respiratory issues and had to be reintubated. She was then sent to the ICU for further monitoring and treatment. Grafts/Implants Used: Nasal adult packing and dorsal nasal splint. - Complications There were no intraoperative complications. However in the PACU after she was extubated, she developed respiratory problems and needed to be re-intubated. She was then sent to the ICU for overnight observation until extubation can be performed. - Admit VTE Documentation VTE Present on Admission: No VTE Mechan Device Prophylaxis: SCD's VTE Pharm Prophylaxis ordered?: Yes Code Visit Surgery Charges CPT - 73178 ICD-10 - J34.2, J98.8, R06.00, J34.89, S02.31xS 70718 J98.8, R06.00, J34.89, J34.2, S02.31xS 46454 J98.8, R06.00, J34.89, J34.2, S02.31xS
[2017-04-28] MEDS: Chlorhexidine 15 ML PO (22:36)
[2017-04-28 23:30] LABS: Bedside Glucose 339 mg/dL (70-110)
[2017-04-29] VITALS (23 sets, daily range): BP systolic 107–126; BP diastolic 71–107; PULSE 77–108; RESP 10–18; TEMP 36.5–37.7; O2SAT 90–100
[2017-04-29 01:51] LABS: Bedside Glucose 297 mg/dL (70-110)
[2017-04-29] MEDS: Ipratropium/Albuterol Sulfate 3 ML AMPUL.NEB INHALATION ×2 (02:35→06:51)
[2017-04-29 04:31] LABS: Hemoglobin 11.6 g/dl (12.0-15.0); Mean Corp Hgb Conc 33.1 g/gl (32-36); Mean Corpuscular Hgb 29.5 pg (27.0-32.0); Mean Corpuscular Volume 89.1 fL (81-99); Mean Platelet Vol. 11.4 fl (6.2-12.0); Platelet Count 208 K/mm3 (150-450); RBC Distribution Width CV 13.1 % (11.6-14.6); RBC Distribution Width SD 41.9 fl (35.1-43.9); Red Blood Count 3.93 M/mm3 (4.2-5.4); White Blood Count 11.6 K/mm3 (4.4-11.0)
[2017-04-29 04:35] LABS: Scan Indicated on CBC? Y/N NO
[2017-04-29] MEDS: 0.9% NaCl Peripheral Flush Adult/Peds IV ×3 (04:36→13:00)
[2017-04-29 04:45] LABS: Anion Gap 10 (5-15); BUN 14 mg/dL (7-18); BUN/Creat Ratio 20.6 RATIO (10-20); Calcium,Total 8.2 mg/dL (8.5-10.1); Chloride 102 mmol/L (98-107); Creatinine, Serum 0.68 mg/dL (0.55-1.02); EST Glomerular Filtration Rate 102 mL/min (>60); Est Glom Filt Rate - Afr Amer 123 mL/min (>60); Estimated Creatinine Clearance 82.99 ml/min; Glucose 318 mg/dL (70-110); Sodium Level 137 mmol/L (136-145)
--- NOTE | 2017-04-29 05:55 | RAD_ITS ---
STUDY: X-RAY CHEST REASON FOR EXAM: Female, 41 years old. Dyspnea TECHNIQUE: Single AP portable view of the chest. COMPARISON: None. FINDINGS: Endotracheal tube is seen its tip is at the lizandro and can be retracted 2 cm. An NG tube is seen its tip is below the diaphragm is in good position. Subsegmental atelectases are noted in the right and left lung bases. There is no demonstrated pleural abnormality. Normal size heart. Normal mediastinum and kishan. Normal visualized pulmonary arteries. Normal visualized aortic arch and descending thoracic aorta. Normal visualized thoracic spine. Normal visualized ribs, clavicles, and shoulders. There is no demonstrated abnormality of the visualized soft tissue structures of the upper abdomen. RAD/Chest 1 View (Portable) IMPRESSION: Endotracheal tube is seen its tip is at the lizandro and can be retracted 2 cm. Electronically Signed: Gabe Lofton MD at 3:02 EST Tel , Service support ,
--- NOTE | 2017-04-29 05:55 | EKG12_ITS ---
Test Reason : MORNING EKG Blood Pressure : / mmHG Vent. Rate : 101 BPM Atrial Rate : 101 BPM P-R Int : 140 ms QRS Dur : 070 ms QT Int : 350 ms P-R-T Axes : 062 007 024 degrees QTc Int : 453 ms Sinus tachycardia Otherwise normal ECG When compared with ECG of 28-APR-2017 17:09, MANUAL COMPARISON REQUIRED, DATA IS UNCONFIRMED Confirmed by FARHAT NGUYEN, BRODERICK ([id number]), editor at large KERLINE MILIAN ([id number]) on 05/05/2017 8:54:15 AM Referred By: Roberto Holden Confirmed By:BRODERICK DOUGHERTY MD
[2017-04-29] MEDS: Enoxaparin 30 MG/0.3 ML Syringe SC (05:59)
[2017-04-29] MEDS: MethylPREDNISolone 125 MG/2 ML Vial IV (06:00)
[2017-04-29] MEDS: Clindamycin 600 MG/50 ML BAG 100 MG IV ×3 (06:00→22:37)
[2017-04-29 06:11] LABS: Bedside Glucose 279 mg/dL (70-110)
--- NOTE | 2017-04-29 06:49 | PCM.PN.HOSP ---
Subjective: Patient overnight without acute events per self and RN report. This am she is off sedation for extubation/wean trial. She notes no acute pain, even in the recent post-op region. Discussed events of day prior and noted to her likely sedation and anesthetic related w/ noted increased CO2 when re-intubated as etiology for unresponsiveness and hypoxia. She notes being eager for extubation. Patient denies fevers, chills, nausea, emesis, abdominal pain, chest pain. Objective: Physical Examination: General: awake, alert, oriented based on head/hand signaling, seated upright in the ICU bed, much improved appearance. Skin: normal color, turgor, no icterus, cyanosis except recent septoplasty with dressing to the nare region, no acute bleeding evidence, dressing with old dried blood in place. HEENT: AT/NC except recent septoplasty intervention, dressing in place, EOMI, PERRLA, mildly dry MM, intubated still, expect extubation soon. Lungs: Pending extubation, sedation weaned, much improved, BL mild diminished bases, no longer coarse, no wheezing. Heart: Regular rate with regular rhythm; no gallop, rub audible. Abdomen: soft, overweight, NTTP, ND, normalized BS. Extremities: no cyanosis, clubbing, or edema. 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 Psychiatric: affect appears improved, no acute evidence of depressive or anxiety feelings. Vitals/I&O's: Vital Signs Temp Pulse Resp BP Pulse Ox 97.7 F L 98 14 119/87 H 98 04/29/17 04:00 04/29/17 06:00 04/29/17 06:00 04/29/17 06:00 04/29/17 06:00 Oxygen Flow Rate 40 Oxygen Delivery Method Mechanical Ventilator Weight: 148 lb 2.41 oz Body Mass Index (BMI) 26.4 Finger Stick Blood Glucose 351 Intake and Output for Last 24 Hours 04/27/17 04/28/17 04/29/17 23:59 23:59 23:59 Intake Total 2260 / 2260 656 / 656 Output Total 200 / 200 1275 / 1275 Balance 0 / 2059 -619 / -619 Laboratory Results 04/28/17 09:34: WBC 11.5 H, RBC 4.59, Hgb 13.3, Hct 40.9, MCV 89.1, MCH 29.0, MCHC 32.5, RDW 13.3, RDW Differential 43.0, Plt Count 226, MPV 11.2 04/28/17 09:34: Sodium 135 L, Potassium 3.8, Chloride 102, Carbon Dioxide 23.0, Anion Gap 10, BUN 8, Creatinine 0.67, Estim Creat Clear Calc 88.28, Est GFR (MDRD) Af Amer 125, Est GFR (MDRD) Non-Af 103, BUN/Creatinine Ratio 11.9, Glucose 245 H, Calcium 8.3 L, Total Bilirubin 0.50, Direct Bilirubin 0.05, AST 16, ALT 33, Alkaline Phosphatase 103, Total Protein 6.2 L, Albumin 3.0 L, Globulin 3.2 04/28/17 09:34: PT 11.5 L, INR 0.9, APTT 27.9 04/28/17 09:34: Hemoglobin A1c 8.5 H 04/28/17 17:09: Specimen Type ART, Sample Site R Radial, pH 7.06 L*, Bicarbonate Actual 29.3 H, POC Total CO2 32, Base Excess -1, O2 Saturation 100 H, O2 % 100, ABG pCO2 104.7 H*, ABG pO2 362 H*, Jose Antonio Test POS, O2 Delivery Device Ambu, Blood Gas Notified Whom [facility] , Blood Gas Notified Time 1700 04/28/17 17:10: WBC 20.6 H, RBC 4.38, Hgb 12.5, Hct 40.2, MCV 91.8, MCH 28.5, MCHC 31.1 L, RDW 13.4, RDW Differential 44.8 H, Plt Count 275, MPV 11.1, Immature Gran % (Auto) 1.000 H, Neut % (Auto) 74.6 H, Lymph % (Auto) 21.6, [place] % (Auto) 2.2, Eos % (Auto) 0.5, Baso % (Auto) 0.1, Absolute Neuts (auto) 15.3 H, Absolute Lymphs (auto) 4.45, Total Counted Not Reportable 04/28/17 17:10: Sodium 134 L, Potassium 4.7, Chloride 100, Carbon Dioxide 26.0, Anion Gap 8, BUN 9, Creatinine 0.70, Estim Creat Clear Calc 84.49, Est GFR (MDRD) Af Amer 119, Est GFR (MDRD) Non-Af 98, BUN/Creatinine Ratio 12.9, Glucose 388 H, Calcium 7.9 L, Troponin I < 0.02 04/28/17 17:10: Magnesium 1.9 04/28/17 18:07: Specimen Type ART, Sample Site L Radial, pH 7.16 L*, Bicarbonate Actual 27.0 H, POC Total CO2 29, Base Excess -2, O2 Saturation 87 L, O2 % 60, ABG pCO2 75.0 H*, ABG pO2 69 L, Jose Antonio Test POS, Respiration Rate 16, O2 Delivery Device Vent, Minute Volume 6.00, Vent Mode A-C, Tidal Volume 450, POC PEEP 5, Blood Gas Notified Whom RAMANDEEP NGUYEN, Blood Gas Notified Time 1800 04/28/17 20:40: POC Glucose 339 H 04/28/17 21:13: Specimen Type ART, Sample Site R Radial, pH 7.43, Bicarbonate Actual 28.2 H, POC Total CO2 29, Base Excess 4 H, O2 Saturation 100 H, O2 % 50, ABG pCO2 42.9, ABG pO2 189 H, Respiration Rate 16, O2 Delivery Device Vent, Vent Mode A-C, Tidal Volume 450, POC PEEP 5, Blood Gas Notified Whom RAMANDEEP NGUYEN 04/28/17 22:35: Troponin I < 0.02 04/29/17 01:26: POC Glucose 297 H 04/29/17 04:00: Sodium 137, Potassium 4.0, Chloride 102, Carbon Dioxide 25.0, Anion Gap 10, BUN 14, Creatinine 0.68, Estim Creat Clear Calc 82.99, Est GFR (MDRD) Af Amer 123, Est GFR (MDRD) Non-Af 102, BUN/Creatinine Ratio 20.6 H, Glucose 318 H, Calcium 8.2 L 04/29/17 04:00: WBC 11.6 H, RBC 3.93 L, Hgb 11.6 L, Hct 35.0 L, MCV 89.1, MCH 29.5, MCHC 33.1, RDW 13.1, RDW Differential 41.9, Plt Count 208, MPV 11.4 04/29/17 05:59: POC Glucose 279 H Current Medications Albuterol Sulfate (Ventolin Aerosols) 2.5 mg INHALATION Q2H PRN PRN PRN Reason: dyspnea, wheezing Albuterol/Ipratropium (Duoneb) 3 ml INHALATION Q4H.RT [facility] Last Admin: 04/29/17 02:35 Dose: 3 ml Chlorhexidine Gluconate () 15 ml PO BID [facility] Last Admin: 04/28/17 22:36 Dose: 15 ml Dextrose (D50w Syringe) 0 gm IV X1 PRN; Protocol PRN Reason: Hypoglycemia Diphenhydramine HCl (Benadryl) 25 mg PO TID PRN PRN PRN Reason: RASH AND ITCHING PRN Docusate Sodium (Colace) 100 mg PO BID [facility] Last Admin: 04/28/17 22:35 Dose: Not Given Enoxaparin Sodium (Lovenox) 30 mg SC DAILY@0600 [facility] Last Admin: 04/29/17 05:59 Dose: 30 mg Epinephrine HCl (Epi Pen) 0.3 mg IM X1 PRN PRN Reason: Swelling Escitalopram Oxalate (Lexapro) 20 mg PO DAILY [facility] Famotidine (Pepcid) 20 mg GT BID [facility] Last Admin: 04/28/17 22:32 Dose: 20 mg Fluticasone Propionate (Flonase Nasal [place]) 1 spray NASAL DAILY [facility] Gabapentin (Neurontin) 300 mg GT TIDCM [facility] Glucagon () 1 mg IM .X1 PRN PRN Reason: Hypoglycemia Hydralazine HCl (Apresoline) 10 mg IV Q4H PRN PRN PRN Reason: SBP > 160 Clindamycin Phosphate (Cleocin) 600 mg in 50 mls @ 100 mls/hr IV Q8 [facility] Last Admin: 04/29/17 06:00 Dose: 100 mls/hr Lactated Ringer's () 1,000 mls @ 60 mls/hr IV .[id number] [facility] Last Admin: 04/28/17 20:52 Dose: 60 mls/hr Fentanyl () 100 mls @ 2.5 mls/hr IV .Q40H [facility] PRN Reason: Protocol Last Admin: 04/28/17 20:52 Dose: 2.5 mls/hr Propofol (Diprivan) 1,000 mg in 100 mls @ 1.956 mls/hr CONT INF .Q12H [facility]; 5 MCG/KG/MIN PRN Reason: Protocol Last Admin: 04/29/17 04:35 Dose: Not Given Insulin Aspart (Novolog Flexpen (Bkc)) 0 units SC Q6 [facility] PRN Reason: Protocol Last Admin: 04/29/17 06:00 Dose: 4 u Magnesium Hydroxide (Milk Of Magnesia) 30 ml PO DAILY PRN PRN PRN Reason: Constipation Methylprednisolone (Solu-Medrol) 125 mg IV Q8 [facility] Stop: 04/29/17 14:01 Last Admin: 04/29/17 06:00 Dose: 125 mg Morphine Sulfate (Morphine) 4 mg IV Q3H PRN PRN PRN Reason: SEVERE PAIN (6-10/10) Last Admin: 04/29/17 04:36 Dose: 4 mg Nutritional Formula (Hood - [place] Flavor) 1 packet PO BIDCM [facility] Last Admin: 04/28/17 22:34 Dose: 1 packet Ondansetron HCl (Zofran) 4 mg IV Q6H PRN PRN PRN Reason: NAUSEA Ondansetron HCl (Zofran) 4 mg IV Q8H PRN PRN PRN Reason: NAUSEA Oxycodone HCl (Oxyir) 5 mg PO Q4H PRN PRN PRN Reason: SEVERE PAIN (6-10/10) Promethazine HCl (Phenergan) 25 mg PO Q4H PRN PRN PRN Reason: NAUSEA/VOMITING Rizatriptan Benzoate (Maxalt) 10 mg PO X1 PRN PRN Reason: MIGRAINE SYMPTOMS Sodium Chloride () 5 - 30 ml IV UD PRN PRN Reason: SALINE FLUSH Last Admin: 04/29/17 06:01 Dose: 10 ml Assessment/Plan The patient is a 41 y/o F w/ PMHx: Allergic Rhinitis, Asthma, Tobacco use, Diabetes mellitus type II, Overweight, Anxiety and Depression, Migraines, Rheumatoid Arthritis with history of prior facial trauma s/p right orbital floor intervention prior with ongoing difficulty breathing out of the right nare as well as right facial paresthesias associated prompting scheduled presentation to the [facility] for planned intervention per Dr. Holden. (1) Unresponsive with Acute Hypoxic and Hypercarbic Respiratory Failure Post-operatively: Unclear Specific etiology, possibly secondary to recent sedation, anesthetics, successfully re-intubated in the PACU w/ appropriate oxygenation following, transitioned to the ICU, maintained intubation, continue sedation, ABG in PACU with notable hypercarbia and hypoxia, repeat improved, CBC, BMP, enzymes not marked appearing, EKG without acute findings, OG placed given recent nare intervention, continue ATC duonebs, PRN albuterol given underlying pulmonary disease, ICU physician consulted. (2) Prior facial trauma s/p right orbital floor w/ ongoing difficulty breathing out of the right nare w/ R facial paresthesias: OR 04/28/[address] Holden s/p R septoplasty with submucous resection w/ repair of internal nasal vestibular stenosis with placement of bilateral cartilage virtual customer assistant 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 Post-operatively noted clindamycin, IV solumedrol and low dose lovenox regimen, will defer to Dr. Holden. (3) Chronic Asthma: Intubated as noted, maintain on ATC duonebs, PRN albuterol, HOB, IS parameters. (4) Diabetes mellitus type II: NPO status, HgbA1c 8.5%, post-op levels 200s-300s, accu checks q 6 hours w/ ISS. (5) Rheumatoid Arthritis: Regimen no listed in home segment, currently on IV solumedrol per Dr. Holden. (6) Tobacco Abuse: Encouraged cessation, inpatient consultation per RT, NR if desired. (7) Obesity: Weight loss and lifestyle changes will be encouraged. (8) DVT Prophylaxis: SCDs, renally dosed lovenox per Dr. Holden preference. Code Visit Inpatient E&M: 79141 Subs Hosp L2
--- NOTE | 2017-04-29 06:53 | PN_ITS ---
Subjective: Patient overnight without acute events per self and RN report. This am she is off sedation for extubation/wean trial. She notes no acute pain, even in the recent post-op region. Discussed events of day prior and noted to her likely sedation and anesthetic related w/ noted increased CO2 when re-intubated as etiology for unresponsiveness and hypoxia. She notes being eager for extubation. Patient denies fevers, chills, nausea, emesis, abdominal pain, chest pain. Objective: Physical Examination: General: awake, alert, oriented based on head/hand signaling, seated upright in the ICU bed, much improved appearance. Skin: normal color, turgor, no icterus, cyanosis except recent septoplasty with dressing to the nare region, no acute bleeding evidence, dressing with old dried blood in place. HEENT: AT/NC except recent septoplasty intervention, dressing in place, EOMI, PERRLA, mildly dry MM, intubated still, expect extubation soon. Lungs: Pending extubation, sedation weaned, much improved, BL mild diminished bases, no longer coarse, no wheezing. Heart: Regular rate with regular rhythm; no gallop, rub audible. Abdomen: soft, overweight, NTTP, ND, normalized BS. Extremities: no cyanosis, clubbing, or edema. 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 Psychiatric: affect appears improved, no acute evidence of depressive or anxiety feelings. Vitals/I&O's: Vital Signs Temp Pulse Resp BP Pulse Ox 97.7 F L 98 14 119/87 H 98 04/29/17 04:00 04/29/17 06:00 04/29/17 06:00 04/29/17 06:00 04/29/17 06:00 Oxygen Flow Rate 40 Oxygen Delivery Method Mechanical Ventilator Weight: 148 lb 2.41 oz Body Mass Index (BMI) 26.4 Finger Stick Blood Glucose 351 Intake and Output for Last 24 Hours 04/27/17 04/28/17 04/29/17 23:59 23:59 23:59 Intake Total 2260 / 2260 656 / 656 Output Total 200 / 200 1275 / 1275 Balance 0 / 2059 -619 / -619 Laboratory Results 04/28/17 09:34: WBC 11.5 H, RBC 4.59, Hgb 13.3, Hct 40.9, MCV 89.1, MCH 29.0, MCHC 32.5, RDW 13.3, RDW Differential 43.0, Plt Count 226, MPV 11.2 04/28/17 09:34: Sodium 135 L, Potassium 3.8, Chloride 102, Carbon Dioxide 23.0, Anion Gap 10, BUN 8, Creatinine 0.67, Estim Creat Clear Calc 88.28, Est GFR ( MDRD) Af Amer 125, Est GFR (MDRD) Non-Af 103, BUN/Creatinine Ratio 11.9, Glucose 245 H, Calcium 8.3 L, Total Bilirubin 0.50, Direct Bilirubin 0.05, AST 16, ALT 33, Alkaline Phosphatase 103, Total Protein 6.2 L, Albumin 3.0 L, Globulin 3.2 04/28/17 09:34: PT 11.5 L, INR 0.9, APTT 27.9 04/28/17 09:34: Hemoglobin A1c 8.5 H 04/28/17 17:09: Specimen Type ART, Sample Site R Radial, pH 7.06 L*, Bicarbonate Actual 29.3 H, POC Total CO2 32, Base Excess -1, O2 Saturation 100 H , O2 % 100, ABG pCO2 104.7 H*, ABG pO2 362 H*, Jose Antonio Test POS, O2 Delivery Device Ambu, Blood Gas Notified Whom [facility] , Blood Gas Notified Time 1700 04/28/17 17:10: WBC 20.6 H, RBC 4.38, Hgb 12.5, Hct 40.2, MCV 91.8, MCH 28.5, MCHC 31.1 L, RDW 13.4, RDW Differential 44.8 H, Plt Count 275, MPV 11.1, Immature Gran % (Auto) 1.000 H, Neut % (Auto) 74.6 H, Lymph % (Auto) 21.6, [place] % (Auto) 2.2, Eos % (Auto) 0.5, Baso % (Auto) 0.1, Absolute Neuts (auto) 15.3 H , Absolute Lymphs (auto) 4.45, Total Counted Not Reportable 04/28/17 17:10: Sodium 134 L, Potassium 4.7, Chloride 100, Carbon Dioxide 26.0, Anion Gap 8, BUN 9, Creatinine 0.70, Estim Creat Clear Calc 84.49, Est GFR (MDRD ) Af Amer 119, Est GFR (MDRD) Non-Af 98, BUN/Creatinine Ratio 12.9, Glucose 388 H, Calcium 7.9 L, Troponin I < 0.02 04/28/17 17:10: Magnesium 1.9 04/28/17 18:07: Specimen Type ART, Sample Site L Radial, pH 7.16 L*, Bicarbonate Actual 27.0 H, POC Total CO2 29, Base Excess -2, O2 Saturation 87 L , O2 % 60, ABG pCO2 75.0 H*, ABG pO2 69 L, Jose Antonio Test POS, Respiration Rate 16, O2 Delivery Device Vent, Minute Volume 6.00, Vent Mode A-C, Tidal Volume 450, POC PEEP 5, Blood Gas Notified Whom RAMANDEEP NGUYEN, Blood Gas Notified Time 1800 04/28/17 20:40: POC Glucose 339 H 04/28/17 21:13: Specimen Type ART, Sample Site R Radial, pH 7.43, Bicarbonate Actual 28.2 H, POC Total CO2 29, Base Excess 4 H, O2 Saturation 100 H, O2 % 50, ABG pCO2 42.9, ABG pO2 189 H, Respiration Rate 16, O2 Delivery Device Vent, Vent Mode A-C, Tidal Volume 450, POC PEEP 5, Blood Gas Notified Whom RAMANDEEP NGUYEN 04/28/17 22:35: Troponin I < 0.02 04/29/17 01:26: POC Glucose 297 H 04/29/17 04:00: Sodium 137, Potassium 4.0, Chloride 102, Carbon Dioxide 25.0, Anion Gap 10, BUN 14, Creatinine 0.68, Estim Creat Clear Calc 82.99, Est GFR ( MDRD) Af Amer 123, Est GFR (MDRD) Non-Af 102, BUN/Creatinine Ratio 20.6 H, Glucose 318 H, Calcium 8.2 L 04/29/17 04:00: WBC 11.6 H, RBC 3.93 L, Hgb 11.6 L, Hct 35.0 L, MCV 89.1, MCH 29.5, MCHC 33.1, RDW 13.1, RDW Differential 41.9, Plt Count 208, MPV 11.4 04/29/17 05:59: POC Glucose 279 H Current Medications Albuterol Sulfate (Ventolin Aerosols) 2.5 mg INHALATION Q2H PRN PRN PRN Reason: dyspnea, wheezing Albuterol/Ipratropium (Duoneb) 3 ml INHALATION Q4H.RT [facility] Last Admin: 04/29/17 02:35 Dose: 3 ml Chlorhexidine Gluconate () 15 ml PO BID [facility] Last Admin: 04/28/17 22:36 Dose: 15 ml Dextrose (D50w Syringe) 0 gm IV X1 PRN; Protocol PRN Reason: Hypoglycemia Diphenhydramine HCl (Benadryl) 25 mg PO TID PRN PRN PRN Reason: RASH AND ITCHING PRN Docusate Sodium (Colace) 100 mg PO BID [facility] Last Admin: 04/28/17 22:35 Dose: Not Given Enoxaparin Sodium (Lovenox) 30 mg SC DAILY@0600 [facility] Last Admin: 04/29/17 05:59 Dose: 30 mg Epinephrine HCl (Epi Pen) 0.3 mg IM X1 PRN PRN Reason: Swelling Escitalopram Oxalate (Lexapro) 20 mg PO DAILY [facility] Famotidine (Pepcid) 20 mg GT BID [facility] Last Admin: 04/28/17 22:32 Dose: 20 mg Fluticasone Propionate (Flonase Nasal [place]) 1 spray NASAL DAILY [facility] Gabapentin (Neurontin) 300 mg GT TIDCM [facility] Glucagon () 1 mg IM .X1 PRN PRN Reason: Hypoglycemia Hydralazine HCl (Apresoline) 10 mg IV Q4H PRN PRN PRN Reason: SBP > 160 Clindamycin Phosphate (Cleocin) 600 mg in 50 mls @ 100 mls/hr IV Q8 [facility] Last Admin: 04/29/17 06:00 Dose: 100 mls/hr Lactated Ringer's () 1,000 mls @ 60 mls/hr IV .[id number] [facility] Last Admin: 04/28/17 20:52 Dose: 60 mls/hr Fentanyl () 100 mls @ 2.5 mls/hr IV .Q40H [facility] PRN Reason: Protocol Last Admin: 04/28/17 20:52 Dose: 2.5 mls/hr Propofol (Diprivan) 1,000 mg in 100 mls @ 1.956 mls/hr CONT INF .Q12H [facility]; 5 MCG/KG/MIN PRN Reason: Protocol Last Admin: 04/29/17 04:35 Dose: Not Given Insulin Aspart (Novolog Flexpen (Bkc)) 0 units SC Q6 [facility] PRN Reason: Protocol Last Admin: 04/29/17 06:00 Dose: 4 u Magnesium Hydroxide (Milk Of Magnesia) 30 ml PO DAILY PRN PRN PRN Reason: Constipation Methylprednisolone (Solu-Medrol) 125 mg IV Q8 [facility] Stop: 04/29/17 14:01 Last Admin: 04/29/17 06:00 Dose: 125 mg Morphine Sulfate (Morphine) 4 mg IV Q3H PRN PRN PRN Reason: SEVERE PAIN (6-10/10) Last Admin: 04/29/17 04:36 Dose: 4 mg Nutritional Formula (Hood - [place] Flavor) 1 packet PO BIDCM [facility] Last Admin: 04/28/17 22:34 Dose: 1 packet Ondansetron HCl (Zofran) 4 mg IV Q6H PRN PRN PRN Reason: NAUSEA Ondansetron HCl (Zofran) 4 mg IV Q8H PRN PRN PRN Reason: NAUSEA Oxycodone HCl (Oxyir) 5 mg PO Q4H PRN PRN PRN Reason: SEVERE PAIN (6-10/10) Promethazine HCl (Phenergan) 25 mg PO Q4H PRN PRN PRN Reason: NAUSEA/VOMITING Rizatriptan Benzoate (Maxalt) 10 mg PO X1 PRN PRN Reason: MIGRAINE SYMPTOMS Sodium Chloride () 5 - 30 ml IV UD PRN PRN Reason: SALINE FLUSH Last Admin: 04/29/17 06:01 Dose: 10 ml Assessment/Plan The patient is a 41 y/o F w/ PMHx: Allergic Rhinitis, Asthma, Tobacco use, Diabetes mellitus type II, Overweight, Anxiety and Depression, Migraines, Rheumatoid Arthritis with history of prior facial trauma s/p right orbital floor intervention prior with ongoing difficulty breathing out of the right nare as well as right facial paresthesias associated prompting scheduled presentation to the [facility] for planned intervention per Dr. Holden. (1) Unresponsive with Acute Hypoxic and Hypercarbic Respiratory Failure Post- operatively: Unclear Specific etiology, possibly secondary to recent sedation, anesthetics, successfully re-intubated in the PACU w/ appropriate oxygenation following, transitioned to the ICU, maintained intubation, continue sedation, ABG in PACU with notable hypercarbia and hypoxia, repeat improved, CBC, BMP, enzymes not marked appearing, EKG without acute findings, OG placed given recent nare intervention, continue ATC duonebs, PRN albuterol given underlying pulmonary disease, ICU physician consulted. (2) Prior facial trauma s/p right orbital floor w/ ongoing difficulty breathing out of the right nare w/ R facial paresthesias: OR 04/28/[address] Holden s/p R septoplasty with submucous resection w/ repair of internal nasal vestibular stenosis with placement of bilateral cartilage clay products glazer 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 Post-operatively noted clindamycin, IV solumedrol and low dose lovenox regimen, will defer to Dr. Holden. (3) Chronic Asthma: Intubated as noted, maintain on ATC duonebs, PRN albuterol, HOB, IS parameters. (4) Diabetes mellitus type II: NPO status, HgbA1c 8.5%, post-op levels 200s-300s , accu checks q 6 hours w/ ISS. (5) Rheumatoid Arthritis: Regimen no listed in home segment, currently on IV solumedrol per Dr. Holden. (6) Tobacco Abuse: Encouraged cessation, inpatient consultation per RT, NR if desired. (7) Obesity: Weight loss and lifestyle changes will be encouraged. (8) DVT Prophylaxis: SCDs, renally dosed lovenox per Dr. Holden preference. Code Visit Inpatient E&M: 99514 Subs Hosp L2
[2017-04-29 07:00] LABS: Bedside Glucose 351 mg/dL (70-110)
[2017-04-29 07:00] LABS: Bedside Glucose 323 mg/dL (70-110)
--- NOTE | 2017-04-29 07:03 | CON.PCM_ITS ---
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 The patient was taken to the OR by Dr. Holden with an uncomplicated surgical procedure noted. However, following her transfer to the PACU, the patient was noted to be less responsive. There was concern for her ability to protect her airway. Therefore , she was emergently intubated. Arterial blood gas obtained shortly after intubation revealed evidence of hypoxemia and hypercarbia. There is clinical suspicion that the patient was still sedated following her procedure and went on to develop acute hypercarbic respiratory failure. The patient was subsequently transferred to the medical intensive care unit for ongoing management. With the exception of hyperglycemia, the patient's laboratory workup has been largely unrevealing. She has remained afebrile and hemodynamically stable. No overnight issues were identified by the nursing staff. This morning, the patient is alert and appropriately interactive. She did pass her spontaneous breathing trial. Therefore, the patient was extubated at the bedside under my direct supervision. Past Medical History Past Medical History (Chronic Problems): Chronic Problems Allergic rhinitis (Chronic) Asthma (Chronic) Diabetes mellitus, type II (Chronic) Migraine (Chronic) Anxiety and depression (Chronic) Rheumatoid arthritis (Chronic) Overweight (BMI 25.0-29.9) (Chronic) Smoker (Chronic) F17.200 Allergies mold Allergy (Verified 04/27/17 15:54) Itching naproxen Allergy (Verified 04/27/17 15:54) Unknown venom-honey bee [bee venom (honey bee)] Allergy (Verified 04/27/17 15:54) Swelling amoxicillin Adverse Reaction (Verified 04/27/17 15:54) Upset Stomach guaifenesin [From Robitussin] Adverse Reaction (Verified 04/27/17 15:54) Nausea Home Medications: Ambulatory Orders Medication Instructions Recorded Ranitidine [Zantac] 150 mg PO BID PRN 12/30/13 Epinephrine [Epi Pen] 0.3 mg IM X1 PRN 10/31/15 Sumatriptan Succinate [Imitrex] 50 mg PO .X1 PRN PRN 08/03/16 Escitalopram Oxalate [Lexapro] 20 mg PO DAILY 11/24/15 DiphenhydrAMINE [Benadryl] 25 mg PO TID PRN PRN #20 capsule 02/24/16 Fluticasone 0.05% [Flonase Nasal 1 spray NASAL DAILY 05/01/16 [place]] Albuterol Inhaler [Ventolin Hfa 1 - 2 puff INHALATION Q4H PRN PRN 06/13/16 (SP)] Ibuprofen [Motrin] 800 mg PO TID PRN PRN #20 tablet 07/20/16 Gabapentin [Neurontin] 300 mg PO TID 07/25/16 Albuterol Aerosols [Ventolin 2.5 mg INHALATION Q4H PRN PRN #30 08/05/16 Aerosols] vial Aspirin/Acetaminophen/Caffeine 1 each PO PRN PRN 04/27/17 [Excedrin Migraine Caplet] Surgical History: - - Septoplasty with submucous resection, repair of internal nasal vestibular stenosis with placement of bilateral cartilage hospital staff pharmacist grafts from the nasal septum, cholecystectomy, 3 and 3 C-sections, open reduction right orbital floor blowout fracture using combined approach with periorbital and transantral with titanium placement, mesh reconstruction. 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 Paternal History Items: - - Family history is unknown as she is adopted. Review of Systems Unable to obtain accurate/complete ROS d/t: Due to current intubation status. - Physical Exam General: Alert, Cooperative, No apparent distress, - - Currently intubated and tolerating CPAP. HEENT: - - Surgical dressings in place. Oral: No Gingival or Mucosal Lesions/ Ulcerations, Dry Mucosa, - - Endotracheal and OG tubes in place Neck: Supple, No Nodes, Trachea Midline Lungs: No rhonchi, No wheeze, No rales, Diminished Cardiovascular: Regular rate, Regular Rhythm, Normal S1, Normal S2, No murmurs Abdomen: Bowel Sounds Present, Soft, Non Tender Extremities: No clubbing, No cyanosis, No edema Skin: No rashes, No breakdown Musculoskeletal: No Tenderness to Palpation of Joints or Extremities, No Muscle Wasting Lymphatic: No Cervical, Supraclavicular, or Inguinal Adenopathy Neurological: Neuro grossly intact, - - Alert and following commands appropriately. Vital Signs Temp Pulse Resp BP Pulse Ox 97.7 F L 98 14 119/87 H 98 04/29/17 04:00 04/29/17 06:00 04/29/17 06:00 04/29/17 06:00 04/29/17 06:00 Oxygen Flow Rate 40 Oxygen Delivery Method Mechanical Ventilator Weight: 148 lb 2.41 oz Body Mass Index (BMI) 26.4 Finger Stick Blood Glucose 351 Intake and Output for Last 24 Hours 04/27/17 04/28/17 04/29/17 23:59 23:59 23:59 Intake Total 2260 / 2260 656 / 656 Output Total 200 / 200 1275 / 1275 Balance 2059 / 2059 -619 / -619 Laboratory Tests Past 24 Hrs 04/28/17 04/28/17 04/28/17 09:34 09:34 09:34 WBC 11.5 H RBC 4.59 Hgb 13.3 Hct 40.9 MCV 89.1 MCH 29.0 MCHC 32.5 RDW 13.3 RDW Differential 43.0 Plt Count 226 MPV 11.2 Immature Gran % (Auto) Neut % (Auto) Lymph % (Auto) [place] % (Auto) Eos % (Auto) Baso % (Auto) Absolute Neuts (auto) Absolute Lymphs (auto) Total Counted PT 11.5 L INR 0.9 APTT 27.9 Specimen Type Sample Site pH Bicarbonate Actual POC Total CO2 Base Excess O2 Saturation O2 % ABG pCO2 ABG pO2 Jose Antonio Test Respiration Rate O2 Delivery Device Minute Volume Vent Mode Tidal Volume POC PEEP Blood Gas Notified Whom Blood Gas Notified Time Sodium 135 L Potassium 3.8 Chloride 102 Carbon Dioxide 23.0 Anion Gap 10 BUN 8 Creatinine 0.67 Estim Creat Clear Calc 88.28 Est GFR (MDRD) Af Amer 125 Est GFR (MDRD) Non-Af 103 BUN/Creatinine Ratio 11.9 Glucose 245 H Hemoglobin A1c Calcium 8.3 L Magnesium Total Bilirubin 0.50 Direct Bilirubin 0.05 AST 16 ALT 33 Alkaline Phosphatase 103 Troponin I Total Protein 6.2 L Albumin 3.0 L Globulin 3.2 04/28/17 04/28/17 04/28/17 09:34 17:09 17:10 WBC 20.6 H RBC 4.38 Hgb 12.5 Hct 40.2 MCV 91.8 MCH 28.5 MCHC 31.1 L RDW 13.4 RDW Differential 44.8 H Plt Count 275 MPV 11.1 Immature Gran % (Auto) 1.000 H Neut % (Auto) 74.6 H Lymph % (Auto) 21.6 [place] % (Auto) 2.2 Eos % (Auto) 0.5 Baso % (Auto) 0.1 Absolute Neuts (auto) 15.3 H Absolute Lymphs (auto) 4.45 Total Counted Not Reportable PT INR APTT Specimen Type ART Sample Site R Radial pH 7.06 L* Bicarbonate Actual 29.3 H POC Total CO2 32 Base Excess -1 O2 Saturation 100 H O2 % 100 ABG pCO2 104.7 H* ABG pO2 362 H* Jose Antonio Test POS Respiration Rate O2 Delivery Device Ambu Minute Volume Vent Mode Tidal Volume POC PEEP Blood Gas Notified Whom [facility] Blood Gas Notified Time 1700 Sodium Potassium Chloride Carbon Dioxide Anion Gap BUN Creatinine Estim Creat Clear Calc Est GFR (MDRD) Af Amer Est GFR (MDRD) Non-Af BUN/Creatinine Ratio Glucose Hemoglobin A1c 8.5 H Calcium Magnesium Total Bilirubin Direct Bilirubin AST ALT Alkaline Phosphatase Troponin I Total Protein Albumin Globulin 04/28/17 04/28/17 04/28/17 17:10 17:10 18:07 WBC RBC Hgb Hct MCV MCH MCHC RDW RDW Differential Plt Count MPV Immature Gran % (Auto) Neut % (Auto) Lymph % (Auto) [place] % (Auto) Eos % (Auto) Baso % (Auto) Absolute Neuts (auto) Absolute Lymphs (auto) Total Counted PT INR APTT Specimen Type ART Sample Site L Radial pH 7.16 L* Bicarbonate Actual 27.0 H POC Total CO2 29 Base Excess -2 O2 Saturation 87 L O2 % 60 ABG pCO2 75.0 H* ABG pO2 69 L Jose Antonio Test POS Respiration Rate 16 O2 Delivery Device Vent Minute Volume 6.00 Vent Mode A-C Tidal Volume 450 POC PEEP 5 Blood Gas Notified Whom [facility] Blood Gas Notified Time 1800 Sodium 134 L Potassium 4.7 Chloride 100 Carbon Dioxide 26.0 Anion Gap 8 BUN 9 Creatinine 0.70 Estim Creat Clear Calc 84.49 Est GFR (MDRD) Af Amer 119 Est GFR (MDRD) Non-Af 98 BUN/Creatinine Ratio 12.9 Glucose 388 H Hemoglobin A1c Calcium 7.9 L Magnesium 1.9 Total Bilirubin Direct Bilirubin AST ALT Alkaline Phosphatase Troponin I < 0.02 Total Protein Albumin Globulin 04/28/17 04/28/17 04/29/17 21:13 22:35 04:00 WBC RBC Hgb Hct MCV MCH MCHC RDW RDW Differential Plt Count MPV Immature Gran % (Auto) Neut % (Auto) Lymph % (Auto) [place] % (Auto) Eos % (Auto) Baso % (Auto) Absolute Neuts (auto) Absolute Lymphs (auto) Total Counted PT INR APTT Specimen Type ART Sample Site R Radial pH 7.43 Bicarbonate Actual 28.2 H POC Total CO2 29 Base Excess 4 H O2 Saturation 100 H O2 % 50 ABG pCO2 42.9 ABG pO2 189 H Jose Antonio Test Respiration Rate 16 O2 Delivery Device Vent Minute Volume Vent Mode A-C Tidal Volume 450 POC PEEP 5 Blood Gas Notified Whom [facility] MD Blood Gas Notified Time Sodium 137 Potassium 4.0 Chloride 102 Carbon Dioxide 25.0 Anion Gap 10 BUN 14 Creatinine 0.68 Estim Creat Clear Calc 82.99 Est GFR (MDRD) Af Amer 123 Est GFR (MDRD) Non-Af 102 BUN/Creatinine Ratio 20.6 H Glucose 318 H Hemoglobin A1c Calcium 8.2 L Magnesium Total Bilirubin Direct Bilirubin AST ALT Alkaline Phosphatase Troponin I < 0.02 Total Protein Albumin Globulin 04/29/17 04:00 WBC 11.6 H RBC 3.93 L Hgb 11.6 L Hct 35.0 L MCV 89.1 MCH 29.5 MCHC 33.1 RDW 13.1 RDW Differential 41.9 Plt Count 208 MPV 11.4 Immature Gran % (Auto) Neut % (Auto) Lymph % (Auto) [place] % (Auto) Eos % (Auto) Baso % (Auto) Absolute Neuts (auto) Absolute Lymphs (auto) Total Counted PT INR APTT Specimen Type Sample Site pH Bicarbonate Actual POC Total CO2 Base Excess O2 Saturation O2 % ABG pCO2 ABG pO2 Jose Antonio Test Respiration Rate O2 Delivery Device Minute Volume Vent Mode Tidal Volume POC PEEP Blood Gas Notified Whom Blood Gas Notified Time Sodium Potassium Chloride Carbon Dioxide Anion Gap BUN Creatinine Estim Creat Clear Calc Est GFR (MDRD) Af Amer Est GFR (MDRD) Non-Af BUN/Creatinine Ratio Glucose Hemoglobin A1c Calcium Magnesium Total Bilirubin Direct Bilirubin AST ALT Alkaline Phosphatase Troponin I Total Protein Albumin Globulin POC Glucose 04/29/17 04/29/17 04/28/17 05:59 01:26 20:40 POC Glucose 279 H 297 H 339 H 04/28/17 04/28/17 16:50 16:35 POC Glucose 351 H 323 H Clinical Impression(s) from Imaging Studies Chest X-Ray 04/28/17 18:55 IMPRESSION: Endotracheal tube tip is 1 cm above the lizandro. OG tube tip in the stomach. Electronically Signed: Nader Lutz DO at 20:09 EST , Service support , Chest X-Ray 04/29/17 05:55 IMPRESSION: Endotracheal tube is seen its tip is at the lizandro and can be retracted 2 cm. Electronically Signed: Gabe Lofton MD at 3:02 EST Tel , Service support , Assessment/Plan RECOMMENDATIONS: 1. Proceed with a trial of extubation 2. Once extubated, attempt to maintain patient on room air as tolerated. If supplemental oxygen is required would recommend facemask. 3. Encourage incentive spirometer use 4. Pain control per hospitalist and surgery 5. Perform bedside swallow evaluation and advance diet, if cleared by surgery. 6. Discontinue supplemental IV fluids 7. Discontinue IV steroids 8. Continue as needed aerosol treatments IMPRESSIONS: 1. Acute hypoxemic and hypercarbic respiratory failure Likely secondary to sedating medication utilization and subsequent CO2 retention. The patient has done remarkably well in the ICU. We will plan to proceed with a trial of extubation this morning. The patient will be encouraged to utilize her incentive spirometer postextubation. Continue aerosol treatments as needed. No need for IV steroids. 2. Nasal airway obstruction/prior orbital floor blowout fracture, now postop day #1 status post septoplasty and repair of internal nasal vestibular stenosis Continue pain management per surgery. Will perform bedside swallow evaluation once extubated. If cleared by surgery, diet can be advanced accordingly. 3. Self-reported history of asthma/chronic tobacco dependence As needed aerosols can be utilized. There is no need for steroids currently. Encourage incentive spirometer use. Smoking cessation is advisable. 4. Diabetes/rheumatoid arthritis/obesity Complicates care, management, recovery and prognosis. Initiate insulin coverage given hyperglycemia. Mobilize patient as tolerated. This note was generated with [employer] dictation software. It may contain incorrect words, spelling, and punctuation that were not noted in checking the note before signing. Code Visit Inpatient E&M: 39012 Init Hosp L3
--- NOTE | 2017-04-29 11:05 | NURSING ---
resuming care of patient at 1100. received report from Cristino IRIZARRY at this point
[2017-04-29] MEDS: Famotidine 20 MG Tablet PO ×2 (11:25→22:38)
[2017-04-29] MEDS: Gabapentin 300 MG Capsule PO ×2 (11:25→17:13)
[2017-04-29] MEDS: Escitalopram Oxalate 20 MG Tablet PO (11:43)
[2017-04-29] MEDS: Docusate Sodium 100 MG Capsule PO ×2 (11:43→22:37)
[2017-04-29] MEDS: oxyCODONE 5 MG Tablet PO (11:43)
[2017-04-29 12:16] LABS: Bedside Glucose 313 mg/dL (70-110)
[2017-04-29] MEDS: Ondansetron 4 MG/2 ML Vial IV (13:00)
--- NOTE | 2017-04-29 17:25 | OP.PCM_ITS ---
Report of Operation Date of Procedure: 04/28/17 Pre-Operative Diagnosis: 1. Nasal airway obstruction with difficulty breathing. 2. Internal nasal valve stenosis. 3. Deviated nasal septum. 4. Right orbital floor blowout fracture repair, sequela. 5. Smoker. Post-Operative Diagnosis: Same. Surgery/Procedure Performed:: 1. Septoplasty with submucous resection. 2. Repair of internal nasal vestibular stenosis with placement of bilateral cartilage firer kiln 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 Description of Surgical Findings:: Patient comes back in today with complaints of difficulty breathing out of the right side of her nose. She also has residual discomfort in the area of the fracture repair involving the right orbital floor blowout fracture that was repaired on November 02, 2015. Her tingling on her right cheek is much improved as she states the Neurontin has been helpful. She goes to the pain center for low back pain and she gets Neurontin from their office. She states that when she pulls on her cheeks that spreads the nose a little bit and she is able to breathe a little easier. She has no visual complaints. The patient was informed of the risks and complications of the procedure including alternatives to surgery. These were discussed with her personally. She voices understanding and wishes to proceed. Some of the risks and complications were included in a form from the [employer]. Patient is aware that she will have a dorsal nasal splint for a few weeks and nasal packing for a few days. Encouraged the patient to stop smoking as it may have deleterious effects on wound healing. Urine Output - 200 ml. IV Fluids - 1500 ml. I used Merocel Rebolledo Nasal Airway Dressing x 2. Reference Number - [id number]. Lot Number - [id number]. Expiration - June 29, 2019. I used external dorsal nasal splint. reception interviewer: None Type of Anesthesia:: General Specimen's removed: Nasal cartilage to Pathology. Drains: None. Estimated Blood Loss (mL): 250 ml. Fluids Replaced: 1700 ml (IV Fluids - 1500 ml, Urine Output - 200 ml). Description of Procedure: The patient was taken to the operating room and in the supine position, she was placed under general anesthesia and her face was prepped and draped in the usual fashion. SCDs were placed for DVT prophylaxis. Perioperative antibiotics were given intravenously. Procedure was performed under loupe magnification and headlight illumination. I used methylene blue ink and with a 25-gauge needle, I tattooed the columellar skin with the vestibular skin to aid in wound closure. I then made a stair-step incision on the proximal portion of the columella for the incision. This was infiltrated with Xylocaine and epinephrine. I also infiltrated the nasal septum with Xylocaine and epinephrine. I then placed Teja-Synephrine on cottonoid pledgets into both nasal passages to help with vasoconstriction. I used 4 cottonoid pledgets for each nostril. After waiting for 10 minutes for the anesthetic to take effect, the cottonoid pledgets were then removed and counted and there were 4 removed from each nasal passage. I then made a stair-step incision in the columella down through the subcutaneous tissue until the medial crura of the lower lateral cartilage was seen. I then dissected up toward the middle crura. I then made an infracartilaginous incision into both nasal passages around the inferior aspect of the lower lateral cartilages, and I was then able to free up the dorsal nasal skin with an open rhinoplasty approach. I dissected the lower lateral cartilage away from the soft tissue until I got access to the septum as well as the upper lateral cartilages. The upper lateral cartilages were distorted and adherent to the septum, thus explaining the obstruction and the internal nasal valve problems. Then, I dissected the septal cartilage away from the mucoperichondrium using a [place] elevator. I dissected down to the perpendicular plate of the ethmoid bone as well as to the anterior nasal spine. There was displacement of the caudal septum off of the midline to the left side. There were some cartilaginous and bony spurs at the base that were removed using rongeurs. This allowed me to bring the caudal septum back into the midline on the anterior nasal spine. I then removed a central portion of the nasal septal cartilage to help improve the septum as well as to help with the creation of cartilage firer kiln grafts. I kept 1 cm margin of cartilage for cartilaginous struts both on the nasal dorsum and the caudal nasal septum. The cartilage that was removed was then placed in a bloody-soaked sponge. I then made an incision on the septum to free up the upper lateral cartilages bilaterally. They were so distorted I had to free the upper lateral cartilages off of the soft tissue in order to straighten them out before placement of the cartilage firer kiln grafts into the upper lateral cartilage area to improve the internal nasal valve angle and improve her breathing issues. The size of the cartilage firer kiln grafts that I used from the nasal septum was about 1.5 cm x 4 mm. I placed them in both nasal passages and secured them to the upper lateral cartilage as well as to the nasal septum using 5-0 Vicryl horizontal mattress sutures and 6-0 PDS sutures. I then stabilized the caudal septum on the midline by securing the medial crura of the lower lateral cartilages to the caudal edge of the nasal septum using 6- 0 PDS simple interrupted suture. Because some of the septal cartilage was removed, this was a submucous section. After straightening of the septum and improving the internal nasal valve angle, the patient had a lot more room in her nasal passages as evidenced by my ability to put my small finger into both nasal passages without much obstruction as was present preoperatively. Her lower lateral cartilages were a little distorted and the cephalic portion of the lower lateral cartilages were excised leaving a height of lower lateral cartilages of a cm. The lower lateral cartilages were approximated together at the dome level with 6-0 PDS suture. This improved the shape and contour of her nasal tip. I then irrigated out the wounds with saline. I then closed the stair-step incision on the columella using 5-0 Monocryl interrupted sutures for deep dermis and subcutaneous tissue. The skin was approximated using 6-0 Prolene simple interrupted sutures. The infracartilaginous incision was then approximated using 5-0 chromic simple interrupted sutures. I then placed nasal foam packing with a breathing tube covered with Bactroban ointment into both nasal passages. I first irrigated out both nasal passages for any residual blood. I also suctioned out any residual blood as well. I then placed a dorsal nasal splint for stability for a few days. This was placed on the dorsum of the nose after placing Steri-Strips first on the skin. I then used a 2 x 2 gauze to help absorb any oozing from the nasal passages and packing postoperatively. The patient tolerated the procedure well and will be sent to recovery room in satisfactory condition. She was supposed to be sent upstairs for surgical observation overnight stay in the hospital. Once she is tolerating po analgesia, she will be sent home on antibiotics and pain medicine. She will follow up in the office next week for removal of the nasal packing, and at that point, she will continue to wear the dorsal nasal splint for 2 weeks all the time and then for an additional 2 weeks just at night. This will be reminded to the patient to take it easy during the initial postoperative period to minimize trauma to the nose to allow proper healing. She will keep her head elevated during the initial postoperative period and be on a lifting restriction. Anticipate she will get some swelling around her eyes and she can apply cold compresses as needed for periorbital swelling. The nasal columellar sutures will be removed in a week or two. However while the patient was in the PACU, she developed respiratory issues and had to be reintubated. She was then sent to the ICU for further monitoring and treatment. Grafts/Implants Used: Nasal adult packing and dorsal nasal splint. - Complications There were no intraoperative complications. However in the PACU after she was extubated, she developed respiratory problems and needed to be re-intubated. She was then sent to the ICU for overnight observation until extubation can be performed. - Admit VTE Documentation VTE Present on Admission: No VTE Mechan Device Prophylaxis: SCD's VTE Pharm Prophylaxis ordered?: Yes Code Visit Surgery Charges CPT - 95302 ICD-10 - J34.2, J98.8, R06.00, J34.89, S02.31xS 61478 J98.8, R06.00, J34.89, J34.2, S02.31xS 92744 J98.8, R06.00, J34.89, J34.2, S02.31xS
[2017-04-29 17:46] LABS: Bedside Glucose 304 mg/dL (70-110)
--- NOTE | 2017-04-29 19:39 | PCM.PN.SRG ---
Subjective: Postop #1 Above events noted. Had respiratory difficulties in PACU and needed to be reintubated and sent to the ICU. This morning she was able to be extubated. She is presently resting comfortably and breathing ok. - Physical Exam General: Alert, Oriented x3 HEENT: PERRLA, EOMI Neck: Supple Lungs: No wheeze, Diminished - mild at the bases. Cardiovascular: Regular rate, Regular Rhythm Abdomen: Soft, Non-Distended Skin: Incision - nasal columellar incision intact. Mild facial swelling present. No active bleeding noted on the nasal drip pad. Some dried blood seen. Neurological: Cranial nerves II-XII grossly intact Psych/Mental Status: Normal Affect, Appropriate Vital Signs Temp Pulse Resp BP Pulse Ox 98.1 F 96 15 118/78 95 04/29/17 14:00 04/29/17 15:07 04/29/17 14:00 04/29/17 14:00 04/29/17 14:00 Oxygen Flow Rate 40 Oxygen Delivery Method Room Air Weight: 148 lb 2.41 oz Body Mass Index (BMI) 26.4 Finger Stick Blood Glucose 351 Intake and Output for Last 24 Hours 04/27/17 04/28/17 04/29/17 23:59 23:59 23:59 Intake Total 2260 / 2260 1418 / 1418 Output Total 200 / 200 2225 / 2225 Balance 0 / 0 -807 / -807 Laboratory Tests Past 24 Hrs 04/28/17 04/28/17 04/28/17 09:34 21:13 22:35 WBC Corrected WBC RBC Hgb Hct MCV MCH MCHC RDW RDW Differential Plt Count MPV Diff Path Review Specimen Type ART Sample Site R Radial pH 7.43 Bicarbonate Actual 28.2 H POC Total CO2 29 Base Excess 4 H O2 Saturation 100 H O2 % 50 ABG pCO2 42.9 ABG pO2 189 H Respiration Rate 16 O2 Delivery Device Vent Vent Mode A-C Tidal Volume 450 POC PEEP 5 Blood Gas Notified Whom HOSP Sodium Potassium Chloride Carbon Dioxide Anion Gap BUN Creatinine Estim Creat Clear Calc Est GFR (MDRD) Af Amer Est GFR (MDRD) Non-Af BUN/Creatinine Ratio Glucose Hemoglobin A1c 8.5 H Calcium Troponin I < 0.02 Prealbumin 04/29/17 04/29/17 04/29/17 04:00 04:00 04:00 WBC Cancelled Corrected WBC Cancelled RBC Cancelled Hgb Cancelled Hct Cancelled MCV Cancelled MCH Cancelled MCHC Cancelled RDW Cancelled RDW Differential Cancelled Plt Count Cancelled MPV Cancelled Diff Path Review Cancelled Specimen Type Sample Site pH Bicarbonate Actual POC Total CO2 Base Excess O2 Saturation O2 % ABG pCO2 ABG pO2 Respiration Rate O2 Delivery Device Vent Mode Tidal Volume POC PEEP Blood Gas Notified Whom Sodium 137 Potassium 4.0 Chloride 102 Carbon Dioxide 25.0 Anion Gap 10 BUN 14 Creatinine 0.68 Estim Creat Clear Calc 82.99 Est GFR (MDRD) Af Amer 123 Est GFR (MDRD) Non-Af 102 BUN/Creatinine Ratio 20.6 H Glucose 318 H Hemoglobin A1c Calcium 8.2 L Troponin I Prealbumin 27.0 04/29/17 04/29/17 04:00 07:00 WBC 11.6 H Corrected WBC RBC 3.93 L Hgb 11.6 L Hct 35.0 L MCV 89.1 MCH 29.5 MCHC 33.1 RDW 13.1 RDW Differential 41.9 Plt Count 208 MPV 11.4 Diff Path Review Specimen Type Sample Site pH Bicarbonate Actual POC Total CO2 Base Excess O2 Saturation O2 % ABG pCO2 ABG pO2 Respiration Rate O2 Delivery Device Vent Mode Tidal Volume POC PEEP Blood Gas Notified Whom Sodium Cancelled Potassium Cancelled Chloride Cancelled Carbon Dioxide Cancelled Anion Gap Cancelled BUN Cancelled Creatinine Cancelled Estim Creat Clear Calc Est GFR (MDRD) Af Amer Cancelled Est GFR (MDRD) Non-Af Cancelled BUN/Creatinine Ratio Cancelled Glucose Cancelled Hemoglobin A1c Calcium Cancelled Troponin I Prealbumin POC Glucose 04/29/17 04/29/17 04/29/17 17:10 11:51 05:59 POC Glucose 304 H 313 H 279 H 04/29/17 04/28/17 04/28/17 01:26 20:40 16:50 POC Glucose 297 H 339 H 351 H 04/28/17 16:35 POC Glucose 323 H Assessment/Plan 1. Nasal airway obstruction with difficulty breathing. 2. Internal nasal valve vestibular stenosis. 3. Deviated nasal septum. 4. Right orbital floor blowout fracture repair, sequela. 5. Smoker. 6. s/p septoplasty with submucous resection and repair internal nasal vestibular stenosis with placement bilateral cartilage child nutrition director 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 7. Postop respiratory difficulties requiring re-intubation, now extubated. Patient is resting comfortably. She is stable from a respiratory standpoint. She is tolerating liquids at the present time. Keep head elevated. The nasal drip pad was changed today. Will continue to monitor for any bleeding problems from the nasal surgery. Plan is to send her to a regular floor tomorrow. Will continue to monitor closely since I don't want to send her home too soon and she has further respiratory difficulties. I was going to leave the nasal packing in until Thursday when I saw her in the office. I may decide to remove the packing later in week or on Thursday before she goes home so she doesn't have any issues with nasal mucus blockage with the packing. If she is not able to breathe well enough through her mouth at that point, she may develop respiratory problems at home that would require an urgent return to the ED for evaluation. Prealbumin was 27.1. Encourage nutritional supplementation with protein to help the healing process. Continue Cleocin until the nasal packing is removed.
[2017-04-29 22:56] LABS: Bedside Glucose 301 mg/dL (70-110)
[2017-04-30] VITALS (9 sets, daily range): BP systolic 122–127; BP diastolic 74–86; PULSE 82–100; RESP 15–18; TEMP 36.3–36.6; O2SAT 92–95
[2017-04-30] MEDS: oxyCODONE 5 MG Tablet PO ×3 (02:28→21:30)
--- NOTE | 2017-04-30 05:55 | RAD_ITS ---
STUDY: X-RAY CHEST REASON FOR EXAM: Female, 41 years old. Shortness of breath. TECHNIQUE: Single AP portable view of the chest. COMPARISON: Comparison is made with prior study dated April 29, 2017. FINDINGS: EKG electrodes are seen. The endotracheal tube has been removed. The enterogastric tube has been removed as well. Mild elevation of the right hemidiaphragm. Mild increased markings at the lung bases suggestive of atelectasis. This has improved. Further follow-up is recommended. There is blunting of the left costophrenic angle. There is mild cardiac enlargement. Normal mediastinum and kishan. Normal visualized pulmonary arteries. There is atherosclerotic tortuosity of the aortic arch and descending thoracic aorta. Normal visualized thoracic spine. Normal visualized ribs, clavicles, and shoulders. There is no demonstrated abnormality of the visualized soft tissue structures of the upper abdomen. RAD/Chest 1 View (Portable) IMPRESSION: Residual atelectasis at the lung bases. Electronically Signed: Saul Colon MD at 9:10 EST Tel [phone], Service support ,
[2017-04-30] MEDS: Clindamycin 600 MG/50 ML BAG 100 MG IV ×3 (06:14→21:39)
[2017-04-30 06:15] LABS: Hematocrit 34.7 % (37-47); Hemoglobin 11.1 g/dl (12.0-15.0); Mean Corpuscular Hgb 29.4 pg (27.0-32.0); Mean Corpuscular Volume 91.8 fL (81-99); Platelet Count 211 K/mm3 (150-450); RBC Distribution Width SD 45.7 fl (35.1-43.9); Red Blood Count 3.78 M/mm3 (4.2-5.4); White Blood Count 16.8 K/mm3 (4.4-11.0)
[2017-04-30] MEDS: Enoxaparin 30 MG/0.3 ML Syringe SC (06:15)
[2017-04-30 06:18] LABS: Scan Indicated on CBC? Y/N NO
[2017-04-30 06:23] LABS: Anion Gap 7 (5-15); BUN 13 mg/dL (7-18); BUN/Creat Ratio 25.7 RATIO (10-20); Calcium,Total 8.3 mg/dL (8.5-10.1); Chloride 100 mmol/L (98-107); Creatinine, Serum 0.51 mg/dL (0.55-1.02); EST Glomerular Filtration Rate 143 mL/min (>60); Est Glom Filt Rate - Afr Amer 173 mL/min (>60); Estimated Creatinine Clearance 110.65 ml/min; Glucose 239 mg/dL (70-110); Potassium 3.8 mmol/L (3.5-5.1); Sodium Level 135 mmol/L (136-145)
[2017-04-30 07:06] LABS: Bedside Glucose 235 mg/dL (70-110)
--- NOTE | 2017-04-30 07:52 | PN_ITS ---
Subjective: Patient with no acute events overnight per self and per nursing report. She states she has ongoing facial discomfort in the surgical region but otherwise feeling improved, tolerating diet, no complaint of dyspnea or cough. Reviewed plan which included chest x-ray with review with no market findings aside atelectasis with encouraged continued incentive spirometry and appropriate depth of breath avoid further atelectasis as well as routine ambulation and upright status when appropriate. Patient denies fevers, chills, nausea, emesis , abdominal pain, chest pain or dyspnea. Objective: Physical Examination: General: awake, alert, oriented x 3 and cooperative, seated upright in bed in no apparent distress. Skin: normal color, turgor, no icterus, cyanosis except recent septoplasty with dressing to the nare region, no acute bleeding evidence, dressing with old dried blood in place. HEENT: AT/NC aside recent surgery noted in skin, EOMI, PERRLA, MMM. Lungs: CTA bilaterally, moderate effort, mild decrease BL bases, no rales, ronchi or wheezing. Heart: Regular rate and rhythm; no gallop, rub audible. Abdomen: soft, overweight, NTTP, ND, normal BS. Extremities: no cyanosis, clubbing, residual post-op facial nasal region edema. Neurological: patient awake, alert, oriented x 3; cognitive function intact; pupils equally reactive to light and accomodation; cranial nerves II-XII grossly normal, moving all 4 extremities, no focal deficits, strength improved, mildly globally decreased. Psychiatric: affect appears normal, no acute evidence of depressive or anxiety feelings. Vitals/I&O's: Vital Signs Temp Pulse Resp BP Pulse Ox 97.6 F L 93 16 127/86 H 95 04/30/17 02:30 04/30/17 02:59 04/30/17 02:30 04/30/17 02:30 04/30/17 02:30 Oxygen Flow Rate 40 Oxygen Delivery Method Room Air Weight: 149 lb 4.047 oz Body Mass Index (BMI) 26.4 Finger Stick Blood Glucose 351 Intake and Output for Last 24 Hours 04/28/17 04/29/17 04/30/17 23:59 23:59 23:59 Intake Total 2260 / 2260 1418 / 1418 440 / 440 Output Total 200 / 200 2225 / 2225 500 / 500 Balance 2059 / 2059 -807 / -807 -60 / -60 Laboratory Results 04/29/17 04:00: WBC Cancelled, Corrected WBC Cancelled, RBC Cancelled, Hgb Cancelled, Hct Cancelled, MCV Cancelled, MCH Cancelled, MCHC Cancelled, RDW Cancelled, RDW Differential Cancelled, Plt Count Cancelled, MPV Cancelled, Diff Path Review Cancelled 04/29/17 04:00: Prealbumin 27.0 04/29/17 11:51: POC Glucose 313 H 04/29/17 17:10: POC Glucose 304 H 04/29/17 22:35: POC Glucose 301 H 04/30/17 05:40: Sodium 135 L, Potassium 3.8, Chloride 100, Carbon Dioxide 28.0, Anion Gap 7, BUN 13, Creatinine 0.51 L, Estim Creat Clear Calc 110.65, Est GFR ( MDRD) Af Amer 173, Est GFR (MDRD) Non-Af 143, BUN/Creatinine Ratio 25.7 H, Glucose 239 H, Calcium 8.3 L 04/30/17 05:40: WBC 16.8 H, RBC 3.78 L, Hgb 11.1 L, Hct 34.7 L, MCV 91.8, MCH 29.4, MCHC 32.0, RDW 14.0, RDW Differential 45.7 H, Plt Count 211, MPV 11.0 04/30/17 06:18: POC Glucose 235 H Current Medications Albuterol Sulfate (Ventolin Aerosols) 2.5 mg INHALATION Q2H PRN PRN PRN Reason: dyspnea, wheezing Albuterol/Ipratropium (Duoneb) 3 ml INHALATION Q4H.RT PRN PRN Reason: SOB &/OR WHEEZING Dextrose (D50w Syringe) 0 gm IV X1 PRN; Protocol PRN Reason: Hypoglycemia Dextrose (D50w Syringe) 0 gm IV X1 PRN; Protocol PRN Reason: Hypoglycemia Diphenhydramine HCl (Benadryl) 25 mg PO TID PRN PRN PRN Reason: RASH AND ITCHING PRN Docusate Sodium (Colace) 100 mg PO BID [facility] Last Admin: 04/29/17 22:37 Dose: 100 mg Enoxaparin Sodium (Lovenox) 30 mg SC DAILY@0600 [facility] Last Admin: 04/30/17 06:15 Dose: 30 mg Epinephrine HCl (Epi Pen) 0.3 mg IM X1 PRN PRN Reason: Swelling Escitalopram Oxalate (Lexapro) 20 mg PO DAILY [facility] Last Admin: 04/29/17 11:43 Dose: 20 mg Famotidine (Pepcid) 20 mg PO BID [facility] Last Admin: 04/29/17 22:38 Dose: 20 mg Fluticasone Propionate (Flonase Nasal [place]) 1 spray NASAL DAILY [facility] Last Admin: 04/29/17 11:26 Dose: Not Given Gabapentin (Neurontin) 300 mg PO TIDCM [facility] Last Admin: 04/29/17 17:13 Dose: 300 mg Glucagon () 1 mg IM .X1 PRN PRN Reason: Hypoglycemia Glucagon () 1 mg IM .X1 PRN PRN Reason: Hypoglycemia Hydralazine HCl (Apresoline) 10 mg IV Q4H PRN PRN PRN Reason: SBP > 160 Clindamycin Phosphate (Cleocin) 600 mg in 50 mls @ 100 mls/hr IV Q8 [facility] Last Admin: 04/30/17 06:14 Dose: 100 mls/hr Insulin Aspart (Novolog Flexpen (Bkc)) 0 units SC ACHS [facility] PRN Reason: Protocol Last Admin: 04/30/17 06:19 Dose: 4 u Insulin Detemir (Levemir (Bkc)) 10 units SC BID [facility] Last Admin: 04/29/17 22:37 Dose: 10 u Magnesium Hydroxide (Milk Of Magnesia) 30 ml PO DAILY PRN PRN PRN Reason: Constipation Morphine Sulfate (Morphine) 4 mg IV Q3H PRN PRN PRN Reason: SEVERE PAIN (6-10/10) Last Admin: 04/29/17 13:03 Dose: 4 mg Nutritional Formula (Hood - Greenlee Flavor) [facility] Last Admin: 04/29/17 17:13 Dose: Not Given Ondansetron HCl (Zofran) 4 mg IV Q6H PRN PRN PRN Reason: NAUSEA Last Admin: 04/29/17 13:00 Dose: 4 mg Ondansetron HCl (Zofran) 4 mg IV Q8H PRN PRN PRN Reason: NAUSEA Oxycodone HCl (Oxyir) 5 mg PO Q4H PRN PRN PRN Reason: SEVERE PAIN (6-10/10) Last Admin: 04/30/17 02:28 Dose: 5 mg Promethazine HCl (Phenergan) 25 mg PO Q4H PRN PRN PRN Reason: NAUSEA/VOMITING Rizatriptan Benzoate (Maxalt) 10 mg PO X1 PRN PRN Reason: MIGRAINE SYMPTOMS Sodium Chloride () 5 - 30 ml IV UD PRN PRN Reason: SALINE FLUSH Last Admin: 04/29/17 13:00 Dose: 10 ml Assessment/Plan The patient is a 41 y/o F w/ PMHx: Allergic Rhinitis, Asthma, Tobacco use, Diabetes mellitus type II, Overweight, Anxiety and Depression, Migraines, Rheumatoid Arthritis with history of prior facial trauma s/p right orbital floor intervention prior with ongoing difficulty breathing out of the right nare as well as right facial paresthesias associated prompting scheduled presentation to the [facility] for planned intervention per Dr. Holden. (1) Unresponsive with Acute Hypoxic and Hypercarbic Respiratory Failure Post- operatively: Unclear Specific etiology, possibly secondary to sedation, anesthetics, successfully re-intubated in the PACU w/ appropriate oxygenation following, transitioned to the ICU, maintained intubation overnight and extubated 04/29/17 without marked issue. Stable following, passed swallow evaluation. Transitioned to MT 04/29/17 given stable. Concern for possible aspiration, 04/30/17 CXR without acute findings, 04/30/17 CBC w/ WBC 16.8 however, likely secondary to recent steroid administration andrea-operatively. 04/29/17 T m 99.9 20:00 possible secondary to atelectasis otherwise no obvious etiology. Given unremarkable CXR, stable appearing, agree with discharge to home per Dr. Holden once appropriate from his surgical standpoint. (2) Prior facial trauma s/p right orbital floor w/ ongoing difficulty breathing out of the right nare w/ R facial paresthesias: OR 04/28/[address] Holden s/p R septoplasty with submucous resection w/ repair of internal nasal vestibular stenosis with placement of bilateral cartilage erp pm 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 Post-operatively noted clindamycin, IV solumedrol initially andrea- operatively, low dose lovenox regimen, will defer to Dr. Holden. (3) Chronic Asthma: Intubated as noted, maintain on ATC duonebs, PRN albuterol, HOB, IS parameters. (4) Diabetes mellitus type II: ADA diet, elevated BS, HgbA1c 8.5%, steroids contributing, accu checks q ACHS hours w/ ISS. Upon discharge to home will need to start metformin and given HgbA1c level will also place on low dose levemir in addition with ISS. Will need further alterations, titration per her PCP with repeat HgBA1c to ascertain further needs. Encouraged diet and lifestyle compliance. Will place discharge information with recommendation for DIRECTOR PHONE Endocrinology follow-up also. (5) Rheumatoid Arthritis: Regimen no listed in home segment, IV solumedrol per Dr. Holden post-operatively. (6) Tobacco Abuse: Encouraged cessation, inpatient consultation per RT, NR if desired. (7) Obesity: Weight loss and lifestyle changes will be encouraged. (8) DVT Prophylaxis: SCDs, renally dosed lovenox per Dr. Holden preference. Code Visit Inpatient E&M: 67979 Subs Hosp L2
[2017-04-30] MEDS: Gabapentin 300 MG Capsule PO ×3 (08:59→16:58)
[2017-04-30] MEDS: Famotidine 20 MG Tablet PO ×2 (08:59→21:30)
[2017-04-30] MEDS: Docusate Sodium 100 MG Capsule PO ×2 (09:00→21:30)
[2017-04-30] MEDS: Escitalopram Oxalate 20 MG Tablet PO (09:00)
[2017-04-30] MEDS: 0.9% NaCl Peripheral Flush Adult/Peds IV ×3 (09:00→16:05)
--- NOTE | 2017-04-30 10:35 | PCM.DC ---
- Discharge Diagnoses Current Active Problems: Current Active and Chronic Problems Allergic rhinitis (Chronic) Asthma (Chronic) Diabetes mellitus, type II (Chronic) Migraine (Chronic) Anxiety and depression (Chronic) Rheumatoid arthritis (Chronic) Overweight (BMI 25.0-29.9) (Chronic) (1) Unresponsive with Acute Hypoxic and Hypercarbic Respiratory Failure Post-operatively (2) Prior facial trauma s/p right orbital floor w/ ongoing difficulty breathing out of the right nare w/ R facial paresthesias (3) Chronic Asthma (4) Diabetes mellitus type II, Uncontrolled with Hyperglycemia, HgbA1c 8.5% (5) Rheumatoid Arthritis (6) Tobacco Abuse (7) Obesity You will use the following diet at home:: Calorie/Carbohydrate Controlled (specify 1200, 1400, etc) - 1800 ADA diet. Your food should be the consistency of: Regular Discharge Activity: - - Activity parameters per Dr. Holden. Call your doctor if your incision/area has: Continuous Slow Oozing, Sudden Increased Bleeding, Increased Pain/ Swelling, Increased Redness, Foul Smelling Discharge, Swelling at the incision site Call your doctor if you observe: - - Uncontrolled blood sugars or dyspnea, cough please contact your primary care physician. All other call parameters per Dr. Holden discharge instructions. Instructions: Long-Term Complications of Diabetes, Healthy Meals for Diabetes, Diabetes: Understanding Carbohydrates, What Is Type 2 Diabetes?, How to Check Your Blood Sugar, Using Injected Insulin, Oral Medications for Type 2 Diabetes, Types of Insulin Allergies/Adverse Reactions: Allergies mold Allergy (Verified 04/27/17 15:54) Itching naproxen Allergy (Verified 04/27/17 15:54) Unknown venom-honey bee [bee venom (honey bee)] Allergy (Verified 04/27/17 15:54) Swelling amoxicillin Adverse Reaction (Verified 04/27/17 15:54) Upset Stomach guaifenesin [From Robitussin] Adverse Reaction (Verified 04/27/17 15:54) Nausea Medications to take at Discharge Ranitidine [Zantac] 150 mg PO BID PRN 12/30/13 Epinephrine [Epi Pen] 0.3 mg IM X1 PRN 10/31/15 Sumatriptan Succinate [Imitrex] 50 mg PO .X1 PRN PRN 10/31/15 Escitalopram Oxalate [Lexapro] 20 mg PO DAILY 11/24/15 DiphenhydrAMINE [Benadryl] 25 mg PO TID PRN PRN #20 capsule 02/24/16 Fluticasone 0.05% [Flonase Nasal [place]] 1 spray NASAL DAILY 05/01/16 Albuterol Inhaler [Ventolin Hfa] 1 - 2 puff INHALATION Q4H PRN PRN 06/13/16 Ibuprofen [Motrin] 800 mg PO TID PRN PRN #20 tablet 07/20/16 Gabapentin [Neurontin] 300 mg PO TID 07/25/16 Albuterol Aerosols [Ventolin Aerosols] 2.5 mg INHALATION Q4H PRN PRN #30 vial 08/05/16 Aspirin/Acetaminophen/Caffeine [Excedrin Migraine Caplet] 1 each PO PRN PRN 04/27/17 Insulin Aspart [Novolog Flexpen] See Protocol SC ACHS #1 flexpen 04/30/17 Insulin Detemir [Levemir FlexPen] 10 units SC BID #1 insuln.pen 04/30/17 Metformin HCl [Glucophage] 500 mg PO BIDCM #60 tab 04/30/17 The following prescriptions were given: Insulin Aspart [Novolog Flexpen] See Protocol SC ACHS #1 flexpen Insulin Detemir [Levemir FlexPen] 10 units SC BID #1 insuln.pen Metformin HCl [Glucophage] 500 mg PO BIDCM #60 tab Orders to be completed after discharge: Glucometer Location: None Selected Primary Care Physician: Timmy Park MD [Primary Care Provider] - Please follow up with your Primary Care Physician in: Follow-up within 3-5 days to review admission. Please Follow Up With: Roberto Holden MD When: Follow-up per his discharge instructions. Please Follow Up With: Melissa Bragg NP-C When: Please contact office to establish care. Proposed Discharge Date: 04/30/17
--- NOTE | 2017-04-30 10:38 | DCINST_ITS ---
- Discharge Diagnoses Current Active Problems: Current Active and Chronic Problems Allergic rhinitis (Chronic) Asthma (Chronic) Diabetes mellitus, type II (Chronic) Migraine (Chronic) Anxiety and depression (Chronic) Rheumatoid arthritis (Chronic) Overweight (BMI 25.0-29.9) (Chronic) (1) Unresponsive with Acute Hypoxic and Hypercarbic Respiratory Failure Post- operatively (2) Prior facial trauma s/p right orbital floor w/ ongoing difficulty breathing out of the right nare w/ R facial paresthesias (3) Chronic Asthma (4) Diabetes mellitus type II, Uncontrolled with Hyperglycemia, HgbA1c 8.5% (5) Rheumatoid Arthritis (6) Tobacco Abuse (7) Obesity You will use the following diet at home:: Calorie/Carbohydrate Controlled ( specify 1200, 1400, etc) - 1800 ADA diet. Your food should be the consistency of: Regular Discharge Activity: - - Activity parameters per Dr. Holden. Call your doctor if your incision/area has: Continuous Slow Oozing, Sudden Increased Bleeding, Increased Pain/ Swelling, Increased Redness, Foul Smelling Discharge, Swelling at the incision site Call your doctor if you observe: - - Uncontrolled blood sugars or dyspnea, cough please contact your primary care physician. All other call parameters per Dr. Holden discharge instructions. Instructions: Long-Term Complications of Diabetes, Healthy Meals for Diabetes, Diabetes: Understanding Carbohydrates, What Is Type 2 Diabetes?, How to Check Your Blood Sugar, Using Injected Insulin, Oral Medications for Type 2 Diabetes, Types of Insulin Allergies/Adverse Reactions: Allergies mold Allergy (Verified 04/27/17 15:54) Itching naproxen Allergy (Verified 04/27/17 15:54) Unknown venom-honey bee [bee venom (honey bee)] Allergy (Verified 04/27/17 15:54) Swelling amoxicillin Adverse Reaction (Verified 04/27/17 15:54) Upset Stomach guaifenesin [From Robitussin] Adverse Reaction (Verified 04/27/17 15:54) Nausea Medications to take at Discharge Ranitidine [Zantac] 150 mg PO BID PRN 12/30/13 Epinephrine [Epi Pen] 0.3 mg IM X1 PRN 10/31/15 Sumatriptan Succinate [Imitrex] 50 mg PO .X1 PRN PRN 10/31/15 Escitalopram Oxalate [Lexapro] 20 mg PO DAILY 11/24/15 DiphenhydrAMINE [Benadryl] 25 mg PO TID PRN PRN #20 capsule 02/24/16 Fluticasone 0.05% [Flonase Nasal [place]] 1 spray NASAL DAILY 05/01/16 Albuterol Inhaler [Ventolin Hfa] 1 - 2 puff INHALATION Q4H PRN PRN 06/13/16 Ibuprofen [Motrin] 800 mg PO TID PRN PRN #20 tablet 07/20/16 Gabapentin [Neurontin] 300 mg PO TID 07/25/16 Albuterol Aerosols [Ventolin Aerosols] 2.5 mg INHALATION Q4H PRN PRN #30 vial Aspirin/Acetaminophen/Caffeine [Excedrin Migraine Caplet] 1 each PO PRN PRN Insulin Aspart [Novolog Flexpen] See Protocol SC ACHS #1 flexpen 04/30/17 Insulin Detemir [Levemir FlexPen] 10 units SC BID #1 insuln.pen 04/30/17 Metformin HCl [Glucophage] 500 mg PO BIDCM #60 tab 04/30/17 The following prescriptions were given: Insulin Aspart [Novolog Flexpen] See Protocol SC ACHS #1 flexpen Insulin Detemir [Levemir FlexPen] 10 units SC BID #1 insuln.pen Metformin HCl [Glucophage] 500 mg PO BIDCM #60 tab Orders to be completed after discharge: Glucometer Location: None Selected Primary Care Physician: Timmy Park MD [Primary Care Provider] - Please follow up with your Primary Care Physician in: Follow-up within 3-5 days to review admission. Please Follow Up With: Roberto Holden MD When: Follow-up per his discharge instructions. Please Follow Up With: Melissa Bragg NP-C When: Please contact office to establish care. Proposed Discharge Date: 04/30/17
[2017-04-30 11:15] LABS: Bedside Glucose 212 mg/dL (70-110)
[2017-04-30] MEDS: 0.9% NaCl IVPB Med Flush (250 mL) 15 ML IV (13:45)
--- NOTE | 2017-04-30 16:10 | CASEMGMT ---
RN TIMA Face to Face with patient for initial transition planning/care coordination assessment. RN CM introduced self and role at [facility]. Patient lying in bed, alert and oriented, with fiance in room. Patient willing to participate in assessment and is able to answer all questions appropriately. Care providers, pharmacy, and demographics verified. Pt wishes to discharge home, denies need for home health or DME at this time. Patient states she has no further needs or concerns at this time. CM to follow for discharge planning needs that may arise. Disposition Plan: Patient to discharge home with family support and follow-up plans in place.
[2017-04-30 16:11] LABS: Bedside Glucose 196 mg/dL (70-110)
--- NOTE | 2017-04-30 16:28 | NURSING ---
When discussed diabetes, she stated she checks her blood glucose levels with a True Lev, and she also administers his insulin to him.
--- NOTE | 2017-04-30 18:37 | PCM.PN.SRG ---
Subjective: Postop #2 Resting comfortably. Extubated and breathing ok. Transferred to [facility]. - Physical Exam General: Alert, Oriented x3 HEENT: PERRLA, EOMI Neck: Supple Lungs: No wheeze, Diminished Cardiovascular: Regular rate, Regular Rhythm Abdomen: Soft, Non-Distended Extremities: No clubbing, No cyanosis Skin: Incision - nasal columellar incision dry and intact. Mild facial swelling present. No active bleeding noted on the nasal drip pad. Some dried blood noted on the gauze., - - mild facial swelling slowly resolving. Lymphatic: - - no cervical adenopathy. Neurological: Cranial nerves II-XII grossly intact Psych/Mental Status: Normal Affect, Appropriate Vital Signs Temp Pulse Resp BP Pulse Ox 97.4 F L 84 18 126/74 H 94 04/30/17 13:44 04/30/17 16:20 04/30/17 13:44 04/30/17 13:44 04/30/17 13:44 Oxygen Flow Rate 40 Oxygen Delivery Method Room Air Weight: 149 lb 4.047 oz Body Mass Index (BMI) 26.4 Finger Stick Blood Glucose 351 Intake and Output for Last 24 Hours 04/28/17 04/29/17 04/30/17 23:59 23:59 23:59 Intake Total 2260 / 2260 1418 / 1418 440 / 440 Output Total 200 / 200 2225 / 2225 500 / 500 Balance 2059 / 2059 -807 / -807 -60 / -60 Laboratory Tests Past 24 Hrs 04/30/17 04/30/17 05:40 05:40 WBC 16.8 H RBC 3.78 L Hgb 11.1 L Hct 34.7 L MCV 91.8 MCH 29.4 MCHC 32.0 RDW 14.0 RDW Differential 45.7 H Plt Count 211 MPV 11.0 Sodium 135 L Potassium 3.8 Chloride 100 Carbon Dioxide 28.0 Anion Gap 7 BUN 13 Creatinine 0.51 L Estim Creat Clear Calc 110.65 Est GFR (MDRD) Af Amer 173 Est GFR (MDRD) Non-Af 143 BUN/Creatinine Ratio 25.7 H Glucose 239 H Calcium 8.3 L POC Glucose 04/30/17 04/30/17 04/30/17 16:03 11:04 06:18 POC Glucose 196 H 212 H 235 H 01/31/18 22:35 POC Glucose 301 H Assessment/Plan 1. Nasal airway obstruction with difficulty breathing. 2. Internal nasal valve vestibular stenosis. 3. Deviated nasal septum. 4. Right orbital floor blowout fracture repair, sequela. 5. Smoker. 6. s/p septoplasty with submucous resection and repair internal nasal vestibular stenosis with placement bilateral cartilage exchange clerk 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 7. Postop respiratory difficulties requiring re-intubation, now extubated. Patient is resting comfortably. She is stable from a respiratory standpoint. She is tolerating liquids at the present time. Keep head elevated. The nasal drip pad was changed today. Will continue to monitor for any bleeding problems from the nasal surgery. She was transferred to [facility] today. Will continue to monitor closely since I don't want to send her home too soon and she has further respiratory difficulties. I was going to leave the nasal packing in until Thursday when I saw her in the office. I may decide to remove the packing later in week or on Thursday before she goes home so she doesn't have any issues with nasal mucus blockage with the packing. If she is not able to breathe well enough through her mouth at that point, she may develop respiratory problems at home that would require an urgent return to the ED for evaluation. Prealbumin was 27.1. Encourage nutritional supplementation with protein to help the healing process. Continue Cleocin until the nasal packing is removed.
[2017-04-30 23:06] LABS: Bedside Glucose 197 mg/dL (70-110)
[2017-05-01] VITALS (9 sets, daily range): BP systolic 136–152; BP diastolic 85–90; PULSE 73–86; RESP 15–16; TEMP 36.3–36.7; O2SAT 96–99
[2017-05-01] MEDS: Clindamycin 600 MG/50 ML BAG 100 MG IV ×2 (04:52→15:00)
[2017-05-01] MEDS: Enoxaparin 30 MG/0.3 ML Syringe SC (04:53)
[2017-05-01 06:34] LABS: Hemoglobin 11.2 g/dl (12.0-15.0); Mean Corpuscular Hgb 29.3 pg (27.0-32.0); Mean Corpuscular Volume 91.6 fL (81-99); Mean Platelet Vol. 11.2 fl (6.2-12.0); Platelet Count 203 K/mm3 (150-450); RBC Distribution Width CV 13.8 % (11.6-14.6); RBC Distribution Width SD 45.4 fl (35.1-43.9); Red Blood Count 3.82 M/mm3 (4.2-5.4)
[2017-05-01 06:38] LABS: Scan Indicated on CBC? Y/N NO
[2017-05-01 06:45] LABS: Anion Gap 7 (5-15); BUN 9 mg/dL (7-18); BUN/Creat Ratio 19.1 RATIO (10-20); Calcium,Total 8.5 mg/dL (8.5-10.1); Chloride 105 mmol/L (98-107); Creatinine, Serum 0.47 mg/dL (0.55-1.02); EST Glomerular Filtration Rate 156 mL/min (>60); Est Glom Filt Rate - Afr Amer 188 mL/min (>60); Estimated Creatinine Clearance 120.07 ml/min; Glucose 179 mg/dL (70-110); Potassium 3.7 mmol/L (3.5-5.1); Sodium Level 141 mmol/L (136-145)
[2017-05-01 06:56] LABS: Bedside Glucose 192 mg/dL (70-110)
[2017-05-01] MEDS: Docusate Sodium 100 MG Capsule PO (08:47)
[2017-05-01] MEDS: Famotidine 20 MG Tablet PO (08:47)
[2017-05-01] MEDS: Escitalopram Oxalate 20 MG Tablet PO (08:47)
[2017-05-01] MEDS: Gabapentin 300 MG Capsule PO ×3 (08:47→17:03)
[2017-05-01 08:56] LABS: Bedside Glucose 197 mg/dL (70-110)
--- NOTE | 2017-05-01 10:30 | PCM.PN.HOSP ---
Subjective: Patient with no acute events overnight per self and per nursing report. Patient notes pain to the facial surgical region is improved however packing is still in place. She has had no further bleeding and no further respiratory events. Reviewed diabetic education and plans for discharge including oral metformin and low-dose insulin with follow-up with endocrinology [employer]. Discussed patient with case management and social work as appropriate for discharge to home with outpatient further evaluation per Dr. Holden. Patient denies fevers, chills, nausea, emesis, abdominal pain, chest pain or dyspnea. Objective: Physical Examination: General: awake, alert, oriented x 3 and cooperative, seated upright in bed in no apparent distress. Skin: normal color, turgor, no icterus, cyanosis except recent septoplasty with dressing to the nare region, no acute bleeding evidence, dressing with old dried blood in place. HEENT: AT/NC aside recent surgery noted in skin, EOMI, PERRLA, MMM. Lungs: CTA bilaterally, moderate effort, mild decrease BL bases, no rales, ronchi or wheezing. Heart: Regular rate and rhythm; no gallop, rub audible. Abdomen: soft, overweight, NTTP, ND, normal BS. Extremities: no cyanosis, clubbing, residual post-op facial nasal region edema but improved from day prior. Neurological: patient awake, alert, oriented x 3; cognitive function intact; pupils equally reactive to light and accomodation; cranial nerves II-XII grossly normal, moving all 4 extremities, no focal deficits, strength improved, mildly globally decreased. Psychiatric: affect appears normal, no acute evidence of depressive or anxiety feelings. Vitals/I&O's: Vital Signs Temp Pulse Resp BP Pulse Ox 97.4 F L 76 16 140/90 H 96 05/01/17 08:43 05/01/17 08:43 05/01/17 08:43 05/01/17 08:43 05/01/17 08:43 Oxygen Flow Rate 40 Oxygen Delivery Method Room Air Weight: 142 lb 13.753 oz Body Mass Index (BMI) 26.4 Finger Stick Blood Glucose 351 Intake and Output for Last 24 Hours 04/29/17 04/30/17 05/01/17 23:59 23:59 23:59 Intake Total 1418 / 1418 440 / 440 310 / 310 Output Total 2225 / 2225 500 / 500 Balance -807 / -807 -60 / -60 310 / 310 Laboratory Results 04/30/17 11:04: POC Glucose 212 H 04/30/17 16:03: POC Glucose 196 H 04/30/17 21:28: POC Glucose 197 H 05/01/17 05:42: Sodium 141, Potassium 3.7, Chloride 105, Carbon Dioxide 29.0, Anion Gap 7, BUN 9, Creatinine 0.47 L, Estim Creat Clear Calc 120.07, Est GFR (MDRD) Af Amer 188, Est GFR (MDRD) Non-Af 156, BUN/Creatinine Ratio 19.1, Glucose 179 H, Calcium 8.5 05/01/17 05:42: WBC 11.0, RBC 3.82 L, Hgb 11.2 L, Hct 35.0 L, MCV 91.6, MCH 29.3, MCHC 32.0, RDW 13.8, RDW Differential 45.4 H, Plt Count 203, MPV 11.2 05/01/17 06:44: POC Glucose 192 H 05/01/17 08:38: POC Glucose 197 H Current Medications Albuterol Sulfate (Ventolin Aerosols) 2.5 mg INHALATION Q2H PRN PRN PRN Reason: dyspnea, wheezing Albuterol/Ipratropium (Duoneb) 3 ml INHALATION Q4H.RT PRN PRN Reason: SOB &/OR WHEEZING Dextrose (D50w Syringe) 0 gm IV X1 PRN; Protocol PRN Reason: Hypoglycemia Dextrose (D50w Syringe) 0 gm IV X1 PRN; Protocol PRN Reason: Hypoglycemia Diphenhydramine HCl (Benadryl) 25 mg PO TID PRN PRN PRN Reason: RASH AND ITCHING PRN Docusate Sodium (Colace) 100 mg PO BID [facility] Last Admin: 05/01/17 08:47 Dose: 100 mg Enoxaparin Sodium (Lovenox) 30 mg SC DAILY@0600 [facility] Last Admin: 05/01/17 04:53 Dose: 30 mg Epinephrine HCl (Epi Pen) 0.3 mg IM X1 PRN PRN Reason: Swelling Escitalopram Oxalate (Lexapro) 20 mg PO DAILY [facility] Last Admin: 05/01/17 08:47 Dose: 20 mg Famotidine (Pepcid) 20 mg PO BID [facility] Last Admin: 05/01/17 08:47 Dose: 20 mg Fluticasone Propionate (Flonase Nasal [place]) 1 spray NASAL DAILY [facility] Last Admin: 05/01/17 08:48 Dose: Not Given Gabapentin (Neurontin) 300 mg PO TIDCM [facility] Last Admin: 05/01/17 08:47 Dose: 300 mg Glucagon () 1 mg IM .X1 PRN PRN Reason: Hypoglycemia Glucagon () 1 mg IM .X1 PRN PRN Reason: Hypoglycemia Hydralazine HCl (Apresoline) 10 mg IV Q4H PRN PRN PRN Reason: SBP > 160 Clindamycin Phosphate (Cleocin) 600 mg in 50 mls @ 100 mls/hr IV Q8 [facility] Last Admin: 05/01/17 04:52 Dose: 100 mls/hr Sodium Chloride () 250 mls @ 15 mls/hr IV .[id number] PRN PRN Reason: SALINE FLUSH Last Admin: 04/30/17 13:45 Dose: 15 mls/hr Insulin Aspart (Novolog Flexpen (Bk)) 0 units SC ACHS [facility] PRN Reason: Protocol Last Admin: 05/01/17 08:47 Dose: 2 u Insulin Detemir (Levemir (Bkc)) 10 units SC BID [facility] Last Admin: 05/01/17 08:48 Dose: 10 u Magnesium Hydroxide (Milk Of Magnesia) 30 ml PO DAILY PRN PRN PRN Reason: Constipation Morphine Sulfate (Morphine) 4 mg IV Q3H PRN PRN PRN Reason: SEVERE PAIN (6-10/10) Last Admin: 04/29/17 13:03 Dose: 4 mg Nutritional Formula (Hood - [place] Flavor) [facility] Last Admin: 05/01/17 08:46 Dose: Not Given Ondansetron HCl (Zofran) 4 mg IV Q6H PRN PRN PRN Reason: NAUSEA Last Admin: 04/29/17 13:00 Dose: 4 mg Ondansetron HCl (Zofran) 4 mg IV Q8H PRN PRN PRN Reason: NAUSEA Oxycodone HCl (Oxyir) 5 mg PO Q4H PRN PRN PRN Reason: SEVERE PAIN (6-10/10) Last Admin: 04/30/17 21:30 Dose: 5 mg Promethazine HCl (Phenergan) 25 mg PO Q4H PRN PRN PRN Reason: NAUSEA/VOMITING Rizatriptan Benzoate (Maxalt) 10 mg PO X1 PRN PRN Reason: MIGRAINE SYMPTOMS Sodium Chloride () 5 - 30 ml IV UD PRN PRN Reason: SALINE FLUSH Last Admin: 04/30/17 16:05 Dose: 10 ml Assessment/Plan The patient is a 41 y/o F w/ PMHx: Allergic Rhinitis, Asthma, Tobacco use, Diabetes mellitus type II, Overweight, Anxiety and Depression, Migraines, Rheumatoid Arthritis with history of prior facial trauma s/p right orbital floor intervention prior with ongoing difficulty breathing out of the right nare as well as right facial paresthesias associated prompting scheduled presentation to the [facility] for planned intervention per Dr. Holden. (1) Unresponsive with Acute Hypoxic and Hypercarbic Respiratory Failure Post-operatively: Unclear Specific etiology, possibly secondary to sedation, anesthetics, successfully re-intubated in the PACU w/ appropriate oxygenation following, transitioned to the ICU, maintained intubation overnight and extubated 04/29/17 without marked issue. Stable following, passed swallow evaluation. Transitioned to OR 04/29/17 given stable. Concern for possible aspiration, 04/30/17 CXR without acute findings, 04/30/17 CBC w/ WBC 16.8 however, likely secondary to recent steroid administration andrea-operatively-->05/01/17 CBC w/ WBC 11, afebrile. Repeat CXR post-operatively unremarkable aside atelectasis. Improved notable since initial examination. (2) Prior facial trauma s/p right orbital floor w/ ongoing difficulty breathing out of the right nare w/ R facial paresthesias: OR 04/28/[address] Holden s/p R septoplasty with submucous resection w/ repair of internal nasal vestibular stenosis with placement of bilateral cartilage power distributor 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 Post-operatively noted clindamycin, IV solumedrol initially andrea-operatively, low dose lovenox regimen allowable per Dr. Holden. Patient appropriate for discharge to home w/ packing out per Dr. Holden outpatient in the office if preference for packing to remain for an additional 24-48 hours. Clindamycin oral if packing remains upon discharge per Dr. Holden preference. (3) Diabetes mellitus type II: ADA diet, elevated BS, HgbA1c 8.5%, steroids contributing, accu checks q ACHS hours w/ ISS. Upon discharge to home discussed at length with patient plan for start on metformin and given HgbA1c level discussed continuation of low dose levemir in addition w/ ISS. Nutrition consulted and diet education performed. RN education also for glucometer usage, ISS usage. Referred on discharge instructions to [facility] Endocrinology also. (4) Chronic Asthma: ATC duonebs, PRN albuterol, HOB, IS parameters. (5) Rheumatoid Arthritis: Regimen no listed in home segment, IV solumedrol per Dr. Holden post-operatively, off now. (6) Tobacco Abuse: Encouraged cessation, inpatient consultation per RT, NR if desired. (7) Obesity: Weight loss and lifestyle changes encouraged. Nutrition education during admission. (8) DVT Prophylaxis: SCDs, renally dosed lovenox. Code Visit Inpatient E&M: 86509 Subs Hosp L2
--- NOTE | 2017-05-01 10:40 | PN_ITS ---
Subjective: Patient with no acute events overnight per self and per nursing report. Patient notes pain to the facial surgical region is improved however packing is still in place. She has had no further bleeding and no further respiratory events. Reviewed diabetic education and plans for discharge including oral metformin and low-dose insulin with follow-up with endocrinology [employer]. Discussed patient with case management and social work as appropriate for discharge to home with outpatient further evaluation per Dr. Holden. Patient denies fevers, chills, nausea, emesis, abdominal pain, chest pain or dyspnea. Objective: Physical Examination: General: awake, alert, oriented x 3 and cooperative, seated upright in bed in no apparent distress. Skin: normal color, turgor, no icterus, cyanosis except recent septoplasty with dressing to the nare region, no acute bleeding evidence, dressing with old dried blood in place. HEENT: AT/NC aside recent surgery noted in skin, EOMI, PERRLA, MMM. Lungs: CTA bilaterally, moderate effort, mild decrease BL bases, no rales, ronchi or wheezing. Heart: Regular rate and rhythm; no gallop, rub audible. Abdomen: soft, overweight, NTTP, ND, normal BS. Extremities: no cyanosis, clubbing, residual post-op facial nasal region edema but improved from day prior. Neurological: patient awake, alert, oriented x 3; cognitive function intact; pupils equally reactive to light and accomodation; cranial nerves II-XII grossly normal, moving all 4 extremities, no focal deficits, strength improved, mildly globally decreased. Psychiatric: affect appears normal, no acute evidence of depressive or anxiety feelings. Vitals/I&O's: Vital Signs Temp Pulse Resp BP Pulse Ox 97.4 F L 76 16 140/90 H 96 05/01/17 08:43 05/01/17 08:43 05/01/17 08:43 05/01/17 08:43 05/01/17 08:43 Oxygen Flow Rate 40 Oxygen Delivery Method Room Air Weight: 142 lb 13.753 oz Body Mass Index (BMI) 26.4 Finger Stick Blood Glucose 351 Intake and Output for Last 24 Hours 04/29/17 04/30/17 05/01/17 23:59 23:59 23:59 Intake Total 1418 / 1418 440 / 440 310 / 310 Output Total 2225 / 2225 500 / 500 Balance -807 / -807 -60 / -60 310 / 310 Laboratory Results 04/30/17 11:04: POC Glucose 212 H 04/30/17 16:03: POC Glucose 196 H 04/30/17 21:28: POC Glucose 197 H 05/01/17 05:42: Sodium 141, Potassium 3.7, Chloride 105, Carbon Dioxide 29.0, Anion Gap 7, BUN 9, Creatinine 0.47 L, Estim Creat Clear Calc 120.07, Est GFR ( MDRD) Af Amer 188, Est GFR (MDRD) Non-Af 156, BUN/Creatinine Ratio 19.1, Glucose 179 H, Calcium 8.5 05/01/17 05:42: WBC 11.0, RBC 3.82 L, Hgb 11.2 L, Hct 35.0 L, MCV 91.6, MCH 29.3 , MCHC 32.0, RDW 13.8, RDW Differential 45.4 H, Plt Count 203, MPV 11.2 05/01/17 06:44: POC Glucose 192 H 05/01/17 08:38: POC Glucose 197 H Current Medications Albuterol Sulfate (Ventolin Aerosols) 2.5 mg INHALATION Q2H PRN PRN PRN Reason: dyspnea, wheezing Albuterol/Ipratropium (Duoneb) 3 ml INHALATION Q4H.RT PRN PRN Reason: SOB &/OR WHEEZING Dextrose (D50w Syringe) 0 gm IV X1 PRN; Protocol PRN Reason: Hypoglycemia Dextrose (D50w Syringe) 0 gm IV X1 PRN; Protocol PRN Reason: Hypoglycemia Diphenhydramine HCl (Benadryl) 25 mg PO TID PRN PRN PRN Reason: RASH AND ITCHING PRN Docusate Sodium (Colace) 100 mg PO BID [facility] Last Admin: 05/01/17 08:47 Dose: 100 mg Enoxaparin Sodium (Lovenox) 30 mg SC DAILY@0600 [facility] Last Admin: 05/01/17 04:53 Dose: 30 mg Epinephrine HCl (Epi Pen) 0.3 mg IM X1 PRN PRN Reason: Swelling Escitalopram Oxalate (Lexapro) 20 mg PO DAILY [facility] Last Admin: 05/01/17 08:47 Dose: 20 mg Famotidine (Pepcid) 20 mg PO BID [facility] Last Admin: 05/01/17 08:47 Dose: 20 mg Fluticasone Propionate (Flonase Nasal [place]) 1 spray NASAL DAILY [facility] Last Admin: 05/01/17 08:48 Dose: Not Given Gabapentin (Neurontin) 300 mg PO TIDCM [facility] Last Admin: 05/01/17 08:47 Dose: 300 mg Glucagon () 1 mg IM .X1 PRN PRN Reason: Hypoglycemia Glucagon () 1 mg IM .X1 PRN PRN Reason: Hypoglycemia Hydralazine HCl (Apresoline) 10 mg IV Q4H PRN PRN PRN Reason: SBP > 160 Clindamycin Phosphate (Cleocin) 600 mg in 50 mls @ 100 mls/hr IV Q8 [facility] Last Admin: 05/01/17 04:52 Dose: 100 mls/hr Sodium Chloride () 250 mls @ 15 mls/hr IV .[id number] PRN PRN Reason: SALINE FLUSH Last Admin: 04/30/17 13:45 Dose: 15 mls/hr Insulin Aspart (Novolog Flexpen (Bk)) 0 units SC ACHS [facility] PRN Reason: Protocol Last Admin: 05/01/17 08:47 Dose: 2 u Insulin Detemir (Levemir (Bkc)) 10 units SC BID [facility] Last Admin: 05/01/17 08:48 Dose: 10 u Magnesium Hydroxide (Milk Of Magnesia) 30 ml PO DAILY PRN PRN PRN Reason: Constipation Morphine Sulfate (Morphine) 4 mg IV Q3H PRN PRN PRN Reason: SEVERE PAIN (6-10/10) Last Admin: 04/29/17 13:03 Dose: 4 mg Nutritional Formula (Hood - [place] Flavor) [facility] Last Admin: 05/01/17 08:46 Dose: Not Given Ondansetron HCl (Zofran) 4 mg IV Q6H PRN PRN PRN Reason: NAUSEA Last Admin: 04/29/17 13:00 Dose: 4 mg Ondansetron HCl (Zofran) 4 mg IV Q8H PRN PRN PRN Reason: NAUSEA Oxycodone HCl (Oxyir) 5 mg PO Q4H PRN PRN PRN Reason: SEVERE PAIN (6-10/10) Last Admin: 04/30/17 21:30 Dose: 5 mg Promethazine HCl (Phenergan) 25 mg PO Q4H PRN PRN PRN Reason: NAUSEA/VOMITING Rizatriptan Benzoate (Maxalt) 10 mg PO X1 PRN PRN Reason: MIGRAINE SYMPTOMS Sodium Chloride () 5 - 30 ml IV UD PRN PRN Reason: SALINE FLUSH Last Admin: 04/30/17 16:05 Dose: 10 ml Assessment/Plan The patient is a 41 y/o F w/ PMHx: Allergic Rhinitis, Asthma, Tobacco use, Diabetes mellitus type II, Overweight, Anxiety and Depression, Migraines, Rheumatoid Arthritis with history of prior facial trauma s/p right orbital floor intervention prior with ongoing difficulty breathing out of the right nare as well as right facial paresthesias associated prompting scheduled presentation to the [facility] for planned intervention per Dr. Holden. (1) Unresponsive with Acute Hypoxic and Hypercarbic Respiratory Failure Post- operatively: Unclear Specific etiology, possibly secondary to sedation, anesthetics, successfully re-intubated in the PACU w/ appropriate oxygenation following, transitioned to the ICU, maintained intubation overnight and extubated 04/29/17 without marked issue. Stable following, passed swallow evaluation. Transitioned to DC 04/29/17 given stable. Concern for possible aspiration, 04/30/17 CXR without acute findings, 04/30/17 CBC w/ WBC 16.8 however, likely secondary to recent steroid administration andrea-operatively-->05/01/17 CBC w/ WBC 11, afebrile. Repeat CXR post-operatively unremarkable aside atelectasis. Improved notable since initial examination. (2) Prior facial trauma s/p right orbital floor w/ ongoing difficulty breathing out of the right nare w/ R facial paresthesias: OR 04/28/[address] Holden s/p R septoplasty with submucous resection w/ repair of internal nasal vestibular stenosis with placement of bilateral cartilage it infrastructure consultant 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 Post-operatively noted clindamycin, IV solumedrol initially andrea- operatively, low dose lovenox regimen allowable per Dr. Holden. Patient appropriate for discharge to home w/ packing out per Dr. Holden outpatient in the office if preference for packing to remain for an additional 24-48 hours. Clindamycin oral if packing remains upon discharge per Dr. Holden preference. (3) Diabetes mellitus type II: ADA diet, elevated BS, HgbA1c 8.5%, steroids contributing, accu checks q ACHS hours w/ ISS. Upon discharge to home discussed at length with patient plan for start on metformin and given HgbA1c level discussed continuation of low dose levemir in addition w/ ISS. Nutrition consulted and diet education performed. RN education also for glucometer usage, ISS usage. Referred on discharge instructions to [facility] Endocrinology also. (4) Chronic Asthma: ATC duonebs, PRN albuterol, HOB, IS parameters. (5) Rheumatoid Arthritis: Regimen no listed in home segment, IV solumedrol per Dr. Holden post-operatively, off now. (6) Tobacco Abuse: Encouraged cessation, inpatient consultation per RT, NR if desired. (7) Obesity: Weight loss and lifestyle changes encouraged. Nutrition education during admission. (8) DVT Prophylaxis: SCDs, renally dosed lovenox. Code Visit Inpatient E&M: 09613 Subs Hosp L2
[2017-05-01 12:06] LABS: Bedside Glucose 154 mg/dL (70-110)
--- NOTE | 2017-05-01 12:44 | PCM.PN.SRG ---
Subjective: Postop #3 Patient is resting comfortably. Breathing ok. - Physical Exam General: Alert, Oriented x3 HEENT: EOMI Neck: Supple Lungs: No wheeze, Diminished Cardiovascular: Regular rate, Regular Rhythm Abdomen: Soft, Non-Distended Extremities: No clubbing, No cyanosis Skin: Incision - Incision - nasal columellar incision dry and intact. Mild facial swelling present. No active bleeding noted on the nasal drip pad. Some dried blood noted on the gauze., - - mild facial swelling slowly resolving. Lymphatic: - - no cervical adenopathy. Neurological: Cranial nerves II-XII grossly intact Psych/Mental Status: Normal Affect, Appropriate Vital Signs Temp Pulse Resp BP Pulse Ox 97.4 F L 76 16 140/90 H 96 05/01/17 08:43 05/01/17 08:43 05/01/17 08:43 05/01/17 08:43 05/01/17 08:43 Oxygen Flow Rate 40 Oxygen Delivery Method Room Air Weight: 142 lb 13.753 oz Body Mass Index (BMI) 26.4 Finger Stick Blood Glucose 351 Intake and Output for Last 24 Hours 04/29/17 04/30/17 05/01/17 23:59 23:59 23:59 Intake Total 1418 / 1418 440 / 440 550 / 550 Output Total 2225 / 2225 500 / 500 Balance -807 / -807 -60 / -60 550 / 550 Laboratory Tests Past 24 Hrs 05/01/17 05/01/17 05:42 05:42 WBC 11.0 RBC 3.82 L Hgb 11.2 L Hct 35.0 L MCV 91.6 MCH 29.3 MCHC 32.0 RDW 13.8 RDW Differential 45.4 H Plt Count 203 MPV 11.2 Sodium 141 Potassium 3.7 Chloride 105 Carbon Dioxide 29.0 Anion Gap 7 BUN 9 Creatinine 0.47 L Estim Creat Clear Calc 120.07 Est GFR (MDRD) Af Amer 188 Est GFR (MDRD) Non-Af 156 BUN/Creatinine Ratio 19.1 Glucose 179 H Calcium 8.5 POC Glucose 05/01/17 05/01/17 05/01/17 11:59 08:38 06:44 POC Glucose 154 H 197 H 192 H 04/30/17 04/30/17 21:28 16:03 POC Glucose 197 H 196 H Assessment/Plan 1. Nasal airway obstruction with difficulty breathing. 2. Internal nasal valve vestibular stenosis. 3. Deviated nasal septum. 4. Right orbital floor blowout fracture repair, sequela. 5. Smoker. 6. s/p septoplasty with submucous resection and repair internal nasal vestibular stenosis with placement bilateral cartilage official court reporter 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 7. Postop respiratory difficulties requiring re-intubation, now extubated. Patient is resting comfortably. She is stable from a respiratory standpoint. She is tolerating liquids at the present time. Keep head elevated. The nasal drip pad was changed today. No active bleeding seen. Discharge home today. Wrote script for Cleocin for 5 days until the nasal packing is removed next week. Instructed patient on returning to the ED if increased temp (100 or greater). IV antibiotics would be started and the nasal packing would be removed because of the risk of toxic shock. Patient voiced understanding. Wrote script for Percocet for pain (50 tabs). Wrote scripts for Phenergan for nausea (30 tabs) and for Colace for constipation (60 tabs). Keep head elevated. No heavy lifting. Followup office Thursday05/04/17 for removal of nasal packing. She will followup with [facility] for evaluation of her diabetes mellitus.
--- NOTE | 2017-05-01 12:49 | PCM.DC ---
- Discharge Diagnoses Current Active Problems: Current Active and Chronic Problems Allergic rhinitis (Chronic) Asthma (Chronic) Diabetes mellitus, type II (Chronic) Migraine (Chronic) Anxiety and depression (Chronic) Rheumatoid arthritis (Chronic) Overweight (BMI 25.0-29.9) (Chronic) You will use the following diet at home:: No restrictions Discharge Activity: May not drive while taking narcotic pain medications., - - keep head elevated. no heavy lifting. May shower in (days): 1 May resume sexual activity in: No Restrictions Ice area for (Minutes): 5 - as needed for facial swelling. Weight Bearing Status: Weight bearing as tolerated Lifting Restrictions: 10 lbs. Keep extremity elevated above heart level: - - elevate head. Call your doctor if your incision/area has: Continuous Slow Oozing, Sudden Increased Bleeding, Increased Pain/ Swelling, Increased Redness, Foul Smelling Discharge, Swelling at the incision site Call your doctor if you observe: Fever of 101 or Higher, Coldness, Increased Pain, Shortness of breath, Chest pain, Calf discomfort, Uncontrolled pain, - - Uncontrolled blood sugars or dyspnea, cough please contact your primary care physician. All other call parameters per Dr. Holden discharge instructions. If you develop a low grade fever (100 degrees F or higher) then go to the ED right away. They will call me as the packing needs to be removed at that point ASCENCION to minimize risk of toxic shock. Change Dressing in (Days):: 1 - change nasal drip pad as needed for drainage. Cleanse incision/area with: Soap & Water, - - patient may shower tomorrow. Instructions: Long-Term Complications of Diabetes, What Is Type 2 Diabetes?, How to Check Your Blood Sugar, Using Injected Insulin, Oral Medications for Type 2 Diabetes, Types of Insulin, Healthy Meals for Diabetes, Diabetes: Understanding Carbohydrates Allergies/Adverse Reactions: Allergies mold Allergy (Verified 04/27/17 15:54) Itching naproxen Allergy (Verified 04/27/17 15:54) Unknown venom-honey bee [bee venom (honey bee)] Allergy (Verified 04/27/17 15:54) Swelling amoxicillin Adverse Reaction (Verified 04/27/17 15:54) Upset Stomach guaifenesin [From Robitussin] Adverse Reaction (Verified 04/27/17 15:54) Nausea Medications to take at Discharge Ranitidine [Zantac] 150 mg PO BID PRN 12/30/13 Epinephrine [Epi Pen] 0.3 mg IM X1 PRN 10/31/15 Sumatriptan Succinate [Imitrex] 50 mg PO .X1 PRN PRN 10/31/15 Escitalopram Oxalate [Lexapro] 20 mg PO DAILY 11/24/15 DiphenhydrAMINE [Benadryl] 25 mg PO TID PRN PRN #20 capsule 02/24/16 Fluticasone 0.05% [Flonase Nasal [place]] 1 spray NASAL DAILY 05/01/16 Albuterol Inhaler [Ventolin Hfa] 1 - 2 puff INHALATION Q4H PRN PRN 06/13/16 Ibuprofen [Motrin] 800 mg PO TID PRN PRN #20 tablet 07/20/16 Gabapentin [Neurontin] 300 mg PO TID 07/25/16 Albuterol Aerosols [Ventolin Aerosols] 2.5 mg INHALATION Q4H PRN PRN #30 vial 08/05/16 Aspirin/Acetaminophen/Caffeine [Excedrin Migraine Caplet] 1 each PO PRN PRN 04/27/17 Insulin Aspart [Novolog Flexpen] See Protocol SC ACHS #1 flexpen 04/30/17 Insulin Detemir [Levemir FlexPen] 10 units SC BID #1 insuln.pen 04/30/17 Metformin HCl [Glucophage] 500 mg PO BIDCM #60 tab 04/30/17 Clindamycin HCl [Cleocin] 300 mg PO TID #15 cap 05/01/17 Docusate Sodium [Colace] 100 mg PO BID #60 cap 05/01/17 Oxycodone HCl/Acetaminophen [Percocet 5/325] 1 - 2 tab PO 4X/DAY PRN PRN 7 Days #50 tab 05/01/17 ProMETHAzine [Phenergan] 25 mg PO 4X/DAY PRN PRN #30 tab 05/01/17 Rizatriptan Benzoate [Maxalt] 10 mg PO X1 PRN tablet 05/01/17 The following prescriptions were given: Insulin Aspart [Novolog Flexpen] See Protocol SC ACHS #1 flexpen Oxycodone HCl/Acetaminophen [Percocet 5/325] 1 - 2 tab PO 4X/DAY PRN PRN 7 Days #50 tab PRN Reason: Pain ProMETHAzine [Phenergan] 25 mg PO 4X/DAY PRN PRN #30 tab PRN Reason: NAUSEA/VOMITING Docusate Sodium [Colace] 100 mg PO BID #60 cap Insulin Detemir [Levemir FlexPen] 10 units SC BID #1 insuln.pen Metformin HCl [Glucophage] 500 mg PO BIDCM #60 tab Clindamycin HCl [Cleocin] 300 mg PO TID #15 cap Orders to be completed after discharge: Glucometer Location: None Selected Primary Care Physician: Timmy Park MD [Primary Care Provider] - Please follow up with your Primary Care Physician in: Follow-up within 3-5 days to review admission. Please Follow Up With: Roberto Holden MD When: one week. call [phone] for appt. Please Follow Up With: Melissa Bragg NP-C When: Please contact office to establish care. Proposed Discharge Date: 05/01/17
--- NOTE | 2017-05-01 12:54 | DCINST_ITS ---
- Discharge Diagnoses Current Active Problems: Current Active and Chronic Problems Allergic rhinitis (Chronic) Asthma (Chronic) Diabetes mellitus, type II (Chronic) Migraine (Chronic) Anxiety and depression (Chronic) Rheumatoid arthritis (Chronic) Overweight (BMI 25.0-29.9) (Chronic) You will use the following diet at home:: No restrictions Discharge Activity: May not drive while taking narcotic pain medications., - - keep head elevated. no heavy lifting. May shower in (days): 1 May resume sexual activity in: No Restrictions Ice area for (Minutes): 5 - as needed for facial swelling. Weight Bearing Status: Weight bearing as tolerated Lifting Restrictions: 10 lbs. Keep extremity elevated above heart level: - - elevate head. Call your doctor if your incision/area has: Continuous Slow Oozing, Sudden Increased Bleeding, Increased Pain/ Swelling, Increased Redness, Foul Smelling Discharge, Swelling at the incision site Call your doctor if you observe: Fever of 101 or Higher, Coldness, Increased Pain, Shortness of breath, Chest pain, Calf discomfort, Uncontrolled pain, - - Uncontrolled blood sugars or dyspnea, cough please contact your primary care physician. All other call parameters per Dr. Holden discharge instructions. If you develop a low grade fever (100 degrees F or higher) then go to the ED right away. They will call me as the packing needs to be removed at that point ASCENCION to minimize risk of toxic shock. Change Dressing in (Days):: 1 - change nasal drip pad as needed for drainage. Cleanse incision/area with: Soap & Water, - - patient may shower tomorrow. Instructions: Long-Term Complications of Diabetes, What Is Type 2 Diabetes?, How to Check Your Blood Sugar, Using Injected Insulin, Oral Medications for Type 2 Diabetes, Types of Insulin, Healthy Meals for Diabetes, Diabetes: Understanding Carbohydrates Allergies/Adverse Reactions: Allergies mold Allergy (Verified 04/27/17 15:54) Itching naproxen Allergy (Verified 04/27/17 15:54) Unknown venom-honey bee [bee venom (honey bee)] Allergy (Verified 04/27/17 15:54) Swelling amoxicillin Adverse Reaction (Verified 04/27/17 15:54) Upset Stomach guaifenesin [From Robitussin] Adverse Reaction (Verified 04/27/17 15:54) Nausea Medications to take at Discharge Ranitidine [Zantac] 150 mg PO BID PRN 12/30/13 Epinephrine [Epi Pen] 0.3 mg IM X1 PRN 10/31/15 Sumatriptan Succinate [Imitrex] 50 mg PO .X1 PRN PRN 10/31/15 Escitalopram Oxalate [Lexapro] 20 mg PO DAILY 11/24/15 DiphenhydrAMINE [Benadryl] 25 mg PO TID PRN PRN #20 capsule 02/24/16 Fluticasone 0.05% [Flonase Nasal [place]] 1 spray NASAL DAILY 05/01/16 Albuterol Inhaler [Ventolin Hfa] 1 - 2 puff INHALATION Q4H PRN PRN 06/13/16 Ibuprofen [Motrin] 800 mg PO TID PRN PRN #20 tablet 07/20/16 Gabapentin [Neurontin] 300 mg PO TID 07/25/16 Albuterol Aerosols [Ventolin Aerosols] 2.5 mg INHALATION Q4H PRN PRN #30 vial Aspirin/Acetaminophen/Caffeine [Excedrin Migraine Caplet] 1 each PO PRN PRN Insulin Aspart [Novolog Flexpen] See Protocol SC ACHS #1 flexpen 04/30/17 Insulin Detemir [Levemir FlexPen] 10 units SC BID #1 insuln.pen 04/30/17 Metformin HCl [Glucophage] 500 mg PO BIDCM #60 tab 04/30/17 Clindamycin HCl [Cleocin] 300 mg PO TID #15 cap 05/01/17 Docusate Sodium [Colace] 100 mg PO BID #60 cap 05/01/17 Oxycodone HCl/Acetaminophen [Percocet 5/325] 1 - 2 tab PO 4X/DAY PRN PRN 7 Days #50 tab 05/01/17 ProMETHAzine [Phenergan] 25 mg PO 4X/DAY PRN PRN #30 tab 05/01/17 Rizatriptan Benzoate [Maxalt] 10 mg PO X1 PRN tablet 05/01/17 The following prescriptions were given: Insulin Aspart [Novolog Flexpen] See Protocol SC ACHS #1 flexpen Oxycodone HCl/Acetaminophen [Percocet 5/325] 1 - 2 tab PO 4X/DAY PRN PRN 7 Days #50 tab PRN Reason: Pain ProMETHAzine [Phenergan] 25 mg PO 4X/DAY PRN PRN #30 tab PRN Reason: NAUSEA/VOMITING Docusate Sodium [Colace] 100 mg PO BID #60 cap Insulin Detemir [Levemir FlexPen] 10 units SC BID #1 insuln.pen Metformin HCl [Glucophage] 500 mg PO BIDCM #60 tab Clindamycin HCl [Cleocin] 300 mg PO TID #15 cap Orders to be completed after discharge: Glucometer Location: None Selected Primary Care Physician: Timmy Park MD [Primary Care Provider] - Please follow up with your Primary Care Physician in: Follow-up within 3-5 days to review admission. Please Follow Up With: Roberto Holden MD When: one week. call [phone] for appt. Please Follow Up With: Melissa Bragg NP-C When: Please contact office to establish care. Proposed Discharge Date: 05/01/17
--- NOTE | 2017-05-01 12:55 | DS.PCM_ITS ---
Discharge Date and Diagnosis Date of Admission: 04/28/17 Date of Discharge: 05/01/17 - Primary Discharge Diagnosis Nasal airway obstruction with difficulty breathing. Internal nasal valve vestibular stenosis. Deviated nasal septum. Acute hypoxic respiratory failure, postop. - Secondary Discharge Diagnosis Chronic Problems COPD Asthma Allergic rhinitis Diabetes mellitus, type II Arthritis Migraine Anxiety and depression Smoker Right orbital floor blowout fracture repair, sequela. Hospital Course and Treatment Imaging Results: Diagnostic Data Chest X-Ray 04/30/17 05:55 IMPRESSION: Residual atelectasis at the lung bases. Electronically Signed: Saul Colon MD at 9:10 EST Tel [phone], Service support , CONSULTATIONS Dr. Castanon - Hospitalist Group. Dr. Tai - [facility]. Operations: - - 04/28/17 - 1. Septoplasty with submucous resection. 2. Repair internal nasal vestibular stenosis with placement bilateral cartilage field operations technician 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 Procedures: Intubation Summary of Care Provided: The patient is a 41 year old F who presented with complaints of difficulty breathing out of the right side of her nose. She also has residual discomfort in the area of the fracture repair involving the right orbital floor blowout fracture that was repaired on November 02, 2015. Her tingling on her right cheek is much improved as she states the Neurontin has been helpful. She goes to the pain center for low back pain and she gets Neurontin from their office. She states that when she pulls on her cheeks that spreads the nose a little bit and she is able to breathe a little easier. She has no visual complaints. She was taken to the OR on 04/28/17 where she underwent septoplasty with submucous resection and repair internal nasal vestibular stenosis with placement bilateral cartilage field operations technician 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 She tolerated the procedure well and was taken to the PACU in satisfactory condition. However while in the PACU, she developed acute hypoxic respiratory failure and had to be re-intubated without difficulty. She was then transferred to the ICU. Dr. Castanon from the [facility] was consulted for medical management and Dr. Tai, a [facility], was consulted for ICU management. The following day, 04/29/17, she was successfully extubated. The rest of her hospitalization was unremarkable. She had no more breathing issues. She was transferred to the floor on 04/30/17. After close observation while extubated, she was discharged home on 05/01/17. She will be maintained on Cleocin until the packing is removed which is scheduled for Thursday05/04/17. She was instructed that while at home, if she develops a fever (100 or greater), then she should go to the ED for IV antibiotics and to remove the nasal packing because of the risk of toxic shock. She voiced understanding. Wrote script for Cleocin for 5 days. Wrote script for Percocet for pain (50 tabs). Wrote scripts for Phenergan for nausea (30 tabs) and for Colace for constipation (60 tabs). Followup Thursday05/04/17 for removal of the nasal packing. She will have the nasal splint for 2 weeks continuously and then for an additional 2 weeks at night. Followup ALONZO Bragg (Endocrinology Nurse Practitioner) for evaluation for her diabetes mellitus. Discharge Diet: Carb Control Diet Discharge Activity: May not drive while taking narcotic pain medications., - - keep head elevated. no heavy lifting. May shower in (days): 1 May resume sexual activity in: No Restrictions Ice area for (Minutes): 5 - as needed for facial swelling. Weight Bearing Status: Weight bearing as tolerated Keep extremity elevated above heart level: - - elevate head. Call your doctor if your incision/area has: Continuous Slow Oozing, Sudden Increased Bleeding, Increased Pain/ Swelling, Increased Redness, Foul Smelling Discharge, Swelling at the incision site Call your doctor if you observe: Fever of 101 or Higher, Coldness, Increased Pain, Shortness of breath, Chest pain, Calf discomfort, Uncontrolled pain, - - Uncontrolled blood sugars or dyspnea, cough please contact your primary care physician. All other call parameters per Dr. Holden discharge instructions. If you develop a low grade fever (100 degrees F or higher) then go to the ED right away. They will call me as the packing needs to be removed at that point ASCENCION to minimize risk of toxic shock. Change Dressing in (Days):: 1 - change nasal drip pad as needed for drainage. Cleanse incision/area with: Soap & Water, - - patient may shower tomorrow. Home Medications: Medications to take at Discharge Ranitidine [Zantac] 150 mg PO BID PRN 10/03/14 Epinephrine [Epi Pen] 0.3 mg IM X1 PRN 10/31/15 Sumatriptan Succinate [Imitrex] 50 mg PO .X1 PRN PRN 10/31/15 Escitalopram Oxalate [Lexapro] 20 mg PO DAILY 11/24/15 DiphenhydrAMINE [Benadryl] 25 mg PO TID PRN PRN #20 cap 02/24/16 Fluticasone 0.05% [Flonase Nasal [place]] 1 spray NASAL DAILY 05/01/16 Albuterol Inhaler [Ventolin Hfa] 1 - 2 puff INHALATION Q4H PRN PRN 06/13/16 Ibuprofen [Motrin] 800 mg PO TID PRN PRN #20 tab 07/20/16 Gabapentin [Neurontin] 300 mg PO TID 07/25/16 Albuterol Aerosols [Ventolin Aerosols] 2.5 mg INHALATION Q4H PRN PRN #30 vial Aspirin/Acetaminophen/Caffeine [Excedrin Migraine Caplet] 1 ea PO PRN PRN Insulin Aspart [Novolog Flexpen] See Protocol SC ACHS #1 flexpen 04/30/17 Insulin Detemir [Levemir FlexPen] 10 units SC BID #1 insuln.pen 04/30/17 Metformin HCl [Glucophage] 500 mg PO BIDCM #60 tab 04/30/17 Clindamycin HCl [Cleocin] 300 mg PO TID #15 cap 05/01/17 Docusate Sodium [Colace] 100 mg PO BID #60 cap 05/01/17 Oxycodone HCl/Acetaminophen [Percocet 5/325] 1 - 2 tab PO 4X/DAY PRN PRN 7 Days #50 tab 05/01/17 ProMETHAzine [Phenergan] 25 mg PO 4X/DAY PRN PRN #30 tab 05/01/17 Rizatriptan Benzoate [Maxalt] 10 mg PO X1 PRN tab 05/01/17 Following Prescrptions Were Given to Patient: Insulin Aspart [Novolog Flexpen] See Protocol SC ACHS #1 flexpen Oxycodone HCl/Acetaminophen [Percocet 5/325] 1 - 2 tab PO 4X/DAY PRN PRN 7 Days #50 tab PRN Reason: Pain ProMETHAzine [Phenergan] 25 mg PO 4X/DAY PRN PRN #30 tab PRN Reason: NAUSEA/VOMITING Docusate Sodium [Colace] 100 mg PO BID #60 cap Insulin Detemir [Levemir FlexPen] 10 units SC BID #1 insuln.pen Metformin HCl [Glucophage] 500 mg PO BIDCM #60 tab Clindamycin HCl [Cleocin] 300 mg PO TID #15 cap Other Amb Orders: Glucometer Location: None Selected Primary Care Physician: Timmy Park MD [Primary Care Provider] - Please follow up with your Primary Care Physician in: Follow-up within 3-5 days to review admission. Please Follow Up With: Roberto Holden MD When: one week. call [phone] for appt. Please Follow Up With: Melissa Bragg NP-C When: Please contact office to establish care. Patient Instructions: Long-Term Complications of Diabetes, What Is Type 2 Diabetes?, How to Check Your Blood Sugar, Using Injected Insulin, Oral Medications for Type 2 Diabetes, Types of Insulin, Healthy Meals for Diabetes, Diabetes: Understanding Carbohydrates Disposition: Home Minutes spent on discharge:: 35 Patient Condition:: Stable Meaningful Use Info Meaningful Use Diagnoses (Choose all that apply): None applicable
[2017-05-01 21:36] LABS: Bedside Glucose 182 mg/dL (70-110)
== END 2017-05-01 19:35 | disposition home or self-care (01) | DRG 989 ==
LOC: ICU 04-29 14:55 → AC 04-29 15:10 → ICU 04-29 15:10 → MS3 04-29 15:10 → SDC 04-29 15:10 → ICU 04-30 08:33 → MS3 04-30 08:33
PROVIDERS: Anesthesiology; Family Medicine; Admitting Provider Surgery; Family Provider Internal Medicine; PCP Internal Medicine; Visit Provider Surgery
PROC: 09BM0ZZ Excision of Nasal Septum, Open Approach (ICD-10-PCS; CPT 30520; principal; 2017-04-28 10:10)
DX: J95.821 Acute postprocedural respiratory failure (principal); J44.9 Chronic obstructive pulmonary disease, unspecified; E11.9 Type 2 diabetes mellitus without complications; F17.210 Nicotine dependence, cigarettes, uncomplicated; J45.909 Unspecified asthma, uncomplicated; M06.9 Rheumatoid arthritis, unspecified; J34.2 Deviated nasal septum; J34.89 Other specified disorders of nose and nasal sinuses; S02.31XS Fracture of orbital floor, right side, sequela; X58.XXXS Exposure to other specified factors, sequela; J98.8 Other specified respiratory disorders; M19.90 Unspecified osteoarthritis, unspecified site; F41.9 Anxiety disorder, unspecified; F32.9 Major depressive disorder, single episode, unspecified; R20.2 Paresthesia of skin
CPT/HCPCS: 31720; 36415; 36600; 71045; 80048; 80076; 82803; 82962; 83036; 83735; 84134; 84484; 85025; 85027; 85610; 85730; 88304; 88311; 93005; 94002; 94003; 94640; 94660; 95831; 97116; 97161; 97165; 97802; 97803; 99251; 99406; J7030; J7050; J7120; A4216; G0463; J2405

== ENCOUNTER → 2017-06-24 13:56 | Outpatient (CLI) | payer MEDICARE, SELFPAY ==
--- NOTE | 2017-06-24 14:00 | RAD_ITS ---
STUDY: X-RAY - LEFT KNEE REASON FOR EXAM: Female, 41 years old. History of William's cyst. TECHNIQUE: Four view(s) of the knee. COMPARISON: None. FINDINGS: Normal visualized distal femur. Normal visualized proximal tibia and fibula. Normal proximal tibiofibular articulation. There is no demonstrated fracture. Normal medial femorotibial compartment. Normal lateral femorotibial compartment. Normal patellofemoral articulation. There is no demonstrated joint effusion. The soft tissue structures are unremarkable. RAD/Knee 4 or More Views IMPRESSION: No radiographic evidence of acute fracture. Electronically Signed: Flora Guillen MD at 9:55 EDT , Service support ,
== END ==
PROVIDERS: Family Provider Internal Medicine; PCP Internal Medicine; Visit Provider Orthopaedic Surgery
DX: M25.562 Pain in left knee (principal)
CPT/HCPCS: 73564

== ENCOUNTER 2017-06-30 21:02 | Emergency (ER) | payer MEDICARE, SELFPAY ==
[2017-06-30 21:03] VITALS: PULSE 97; RESP 18; TEMP 36.9; O2SAT 97; BMI 26.9
[2017-06-30 21:05] VITALS: BP 157/94
--- NOTE | 2017-06-30 22:02 | ED.VISSUMM ---
- ER Visit Summary Date of Service: 06/30/17 Chief Complaint: [] Facial pain History of Present Illness: The patient is a 41 F left upper canine 5 days ago. Was not placed on antibiotics and developed pain soon after. This was at the [facility]. She used Tylenol and ibuprofen and comes in for worsening pain and swelling. Physical Examination: Vital signs reviewed General: Well-nourished well-developed Head: Normocephalic atraumatic Eyes: Pupils equal round and reactive to light extraocular movements intact ENT: TMs clear no hemotympanum no trauma mild swelling to the left cheek. Postoperative site clean dry intact. No dry socket. No abscess of the gumline. No drainage. Neck: Nontender full range of motion Cardiovascular: Regular rate rhythm no murmurs normal S1-S2 Respiratory: No distress clear to auscultation bilaterally chest nontender Abdomen: Soft nontender nondistended normal bowel sounds no masses Back: Nontender no CVA tenderness Extremities: Nontender active range of motion ?4 extremities no trauma Skin: Normal color no trauma Neuro alert oriented cranial nerves II through XII intact normal strength sensation reflexes Test Results: [] Emergency Department Course and Treatment: []started on clinda. given short course of pain control with [place]. She will follow-up as an outpatient. Treatment Plan: [] Disposition: [] Impression: [] Post op dental site pain This note was generated with [employer] dictation software. It may contain incorrect words, spelling, and punctuation that were not noted in review of the chart prior to signing ED Disposition - Plan for ED Patient: Chief Complaint: Dental Referrals: Timmy Park MD [Primary Care Provider] -
--- NOTE | 2017-06-30 22:05 | ED.DCSUM_ITS ---
- ER Visit Summary Date of Service: 06/30/17 Chief Complaint: [] Facial pain History of Present Illness: The patient is a 41 F left upper canine 5 days ago. Was not placed on antibiotics and developed pain soon after. This was at the [facility]. She used Tylenol and ibuprofen and comes in for worsening pain and swelling. Physical Examination: Vital signs reviewed General: Well-nourished well-developed Head: Normocephalic atraumatic Eyes: Pupils equal round and reactive to light extraocular movements intact ENT: TMs clear no hemotympanum no trauma mild swelling to the left cheek. Postoperative site clean dry intact. No dry socket. No abscess of the gumline. No drainage. Neck: Nontender full range of motion Cardiovascular: Regular rate rhythm no murmurs normal S1-S2 Respiratory: No distress clear to auscultation bilaterally chest nontender Abdomen: Soft nontender nondistended normal bowel sounds no masses Back: Nontender no CVA tenderness Extremities: Nontender active range of motion ?4 extremities no trauma Skin: Normal color no trauma Neuro alert oriented cranial nerves II through XII intact normal strength sensation reflexes Test Results: [] Emergency Department Course and Treatment: []started on clinda. given short course of pain control with [place]. She will follow-up as an outpatient. Treatment Plan: [] Disposition: [] Impression: [] Post op dental site pain This note was generated with [employer] dictation software. It may contain incorrect words, spelling, and punctuation that were not noted in review of the chart prior to signing ED Disposition - Plan for ED Patient: Chief Complaint: Dental Referrals: Timmy Park MD [Primary Care Provider] -
--- NOTE | 2017-06-30 22:06 | ED.DEP ---
ED Disposition - Plan for ED Patient: Disposition: Home or Assisted Living Chief Complaint: Dental Instructions: ED Tooth Pain Prescriptions: Hydrocodone Bitart/Apap 5-325 [[place] 5/325] 1 - 2 tab PO Q4H PRN PRN 3 Days #8 tab PRN Reason: Pain Clindamycin HCl [Cleocin] 300 mg PO Q6H #28 cap Referrals: Timmy Park MD [Primary Care Provider] - Netta Payton [NON-STAFF] -
[2017-06-30] MEDS: HYDROcodone Bitartrate/Apap 5/325 Tablet PO (22:21)
[2017-06-30] MEDS: Clindamycin HCl 150 MG Capsule 300 MG PO (22:22)
== END 2017-06-30 22:26 | disposition home or self-care (01) ==
PROVIDERS: Emergency Provider Emergency Medicine; Family Provider Internal Medicine; PCP Internal Medicine
DX: K08.89 Other specified disorders of teeth and supporting structures (principal); G89.18 Other acute postprocedural pain; J45.909 Unspecified asthma, uncomplicated; E11.9 Type 2 diabetes mellitus without complications; Z79.4 Long term (current) use of insulin; Z79.84 Long term (current) use of oral hypoglycemic drugs; Z79.899 Other long term (current) drug therapy
CPT/HCPCS: 99283

== ENCOUNTER → 2017-07-08 07:38 | Outpatient (CLI) | payer MEDICARE, SELFPAY ==
--- NOTE | 2017-07-08 07:40 | CT_ITS ---
STUDY: CT FACIAL BONES WITH CONTRAST REASON FOR EXAM: Female, 41 years old. Facial pain. History of right supraorbital neuritis. RADIATION DOSAGE (If Supplied By Facility): CTDIvol = ( 29.38 ) mGy, DLP = ( 1080.22 ) mGycm TECHNIQUE: The patient was scanned in a multi detector CT scanner. Transaxial imaging was performed following the intravenous administration of 100mL ml of Isovue 300 contrast material. Sagittal and coronal images were reconstructed. Individualized dose optimization techniques were used for this CT. COMPARISON: Comparison is made with prior study dated March 09, 2017 and October 16, 2015. FINDINGS: Normal soft tissue structures. Once again, the patient is status post open reduction and internal fixation of the anterior medial right orbital wall with plate fixation. There is good alignment. Normal nasal bones and anterior nasal spine. Normal facial bones. There is no demonstrated fracture. Normal visualized paranasal sinuses. CT/Sinus/Facial Bone WITH [place]ras IMPRESSION: Stable examination. Electronically Signed: Saul Colon MD at 13:15 EDT Tel [phone], Service support ,
[2017-07-08 07:56] LABS: CREATININE FINGERSTICK 0.8 mg/dL (0.55-1.02); EGFR FINGERSTICK > 60.0000 mL/min (>60)
== END ==
PROVIDERS: Family Provider Internal Medicine; PCP Internal Medicine; Visit Provider Surgery
DX: G50.8 Other disorders of trigeminal nerve (principal); S00.11XS Contusion of right eyelid and periocular area, sequela
CPT/HCPCS: 70487; Q9967; A4216

== ENCOUNTER 2017-07-17 23:55 | Emergency (ER) | payer MEDICARE, SELFPAY ==
--- NOTE | 2017-07-18 01:12 | ED.VISSUMM ---
- ER Visit Summary Date of Service: 07/18/17 Chief Complaint: Neck pain History of Present Illness: The patient is a 41 F complains of left-sided neck pain 12 days ago. States she turned her head and felt a crack in her neck at that time. Symptoms are worsening since then. Worse with movement. Using Excedrin, last dose was last evening. No falls or head injuries. States has occipital headache symptoms secondary to this. No nausea or vomiting. No fevers. States she has seen chiropractor in the past however stopped going due to no improvement of symptoms. Patient denies any arm weakness or paresthesias. Denies history of osteopenia or osteoporosis. Physical Examination: I General: Alert and oriented ?3, no acute distress HEENT: Normocephalic, atraumatic. Moist mucosa membranes Neck: supple, no midline tenderness. There is cervical dysfunction C1 and C3 on the left with tenderness. Cardiovascular: Regular rate and rhythm, no murmurs Respiratory: Normal breath sounds, symmetric, no distress Abdomen: Soft, nontender, nondistended Extremities: Nontender, no edema, pulses intact ?4 Neuro: no focal neurological deficits. Test Results: [] Emergency Department Course and Treatment: Exam concerns for cervical dysfunction left C1-C2. Discussed with patient fermenting manipulative therapy. This was performed bedside with facilitated positional release on the left with improvement of symptoms. Patient able to rotate her head with minimal symptoms. She was started on Flexeril to use at nighttime. She will continue her Excedrin. She will follow-up with her PCP for reevaluation. Treatment Plan: [] Disposition: Discharged Impression: Neck muscle strain This note was generated with [employer] dictation software. It may contain incorrect words, spelling, and punctuation that were not noted in review of the chart prior to signing ED Disposition - Plan for ED Patient: Disposition: Home or Assisted Living Diagnosis: Neck muscle strain Referrals: Timmy Park MD [Primary Care Provider] -
== END 2017-07-18 | disposition home or self-care (01) ==
PROVIDERS: Emergency Provider Emergency Medicine; Family Provider Internal Medicine; PCP Internal Medicine
DX: S16.1XXA Strain of muscle, fascia and tendon at neck level, initial encounter (principal); X50.1XXA Overexertion from prolonged static or awkward postures, initial encounter; E11.9 Type 2 diabetes mellitus without complications; Z79.84 Long term (current) use of oral hypoglycemic drugs
CPT/HCPCS: 99282

== ENCOUNTER 2017-08-17 10:00 | Outpatient (RCR) | payer MEDICARE, SELFPAY ==
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
--- NOTE | 2017-08-17 10:48 | HP.PTDCSUM ---
HP - PT D/C Summary It has been my pleasure to treat COLLEEN MILIAN under orders from Corby Lopez MD, for the diagnosis of cervical disc degeneration for a total of 4 visit(s). Discharge Date: 08/17/17 Please see the following information for a summary of their discharge status. - Subjective Subjective: Getting better. Not as intense or as often. Gets pain to 7/10 over weekend holding head the wrong way but can fix head position and it feels better. Started wzalking at home. - Pain L c/s pain Pain Intensity (Out of 10): 0 SMITH Pain Intensity (Out of 10): 0 - Overall Improvement % Improvement: 20 - Objective Objective/Function: 60 L rotation, 55 R rotation. Ext 55 degrees. Noncompliance is an issue as her family laughs as I ask her about her home exercises. Does not wish to continue depsite my encouragement. - Goals Goal 1:: Sit with head in neutral frontal plane without cues Goal Progress: Not Progressing Goal 2:: Full c/s AROM without pain Goal Progress: Progressing Goal 3:: Pt report pain down to intermittent and 3/10 at worst Goal Progress: Progressing Goal 4:: Pt be I in appropr ex to manage condition. Goal Progress: noncompliant - Plan Plan: Pt does not wish to continue despite my encouragement. She has been noncompliant with HEP as well as attendance only having 3 total treatments. - D/C Information Discharge Comments: Pt noncompliant with HEP as well as attendance only getting in 3 treatments. Despite that, she does not wish to continue PT. Improvements are minimal but obvious with ROM and pain. Will schedule with doctor as needed. If there are questions or concerns regarding this patient's physical therapy, please feel free to call me at [phone]. Thank you for the referral of this patient. Sincerely, Perez Cat, DPT, OC
== END 2017-08-17 19:00 | disposition home or self-care (01) ==
LOC: PT 10:00
PROVIDERS: Family Provider Internal Medicine; PCP Internal Medicine; Visit Provider Anesthesiology Pain Medicine
DX: M50.30 Other cervical disc degeneration, unspecified cervical region (principal); M47.812 Spondylosis without myelopathy or radiculopathy, cervical region
CPT/HCPCS: 97110; 97140; 97162; 97530

== ENCOUNTER 2017-10-04 19:23 | Emergency (ER) | payer MEDICARE, SELFPAY ==
[2017-10-04 19:23] VITALS: BP 112/75; PULSE 102; RESP 16; TEMP 36.6; O2SAT 98; BMI 26.6
--- NOTE | 2017-10-04 20:17 | RAD_ITS ---
STUDY: X-RAY - LEFT KNEE REASON FOR EXAM: Female, 42 years old. Left knee pain TECHNIQUE: 3 view(s) of the knee. COMPARISON: None. FINDINGS: Normal visualized distal femur. Normal visualized proximal tibia and fibula. Normal proximal tibiofibular articulation. Normal medial femorotibial compartment. Normal lateral femorotibial compartment. Normal patellofemoral articulation. The soft tissue structures are unremarkable. RAD/Knee 3 Views IMPRESSION: Normal x-ray examination of the knee. Electronically Signed: Rufino Kemp DO at 20:33 EDT Tel , Service support ,
--- NOTE | 2017-10-04 20:20 | RAD_ITS ---
STUDY: X-RAY - RIGHT KNEE REASON FOR EXAM: Female, 42 years old. Right knee pain TECHNIQUE: 3 view(s) of the knee. COMPARISON: None. FINDINGS: Normal visualized distal femur. Normal visualized proximal tibia and fibula. Normal proximal tibiofibular articulation. Normal medial femorotibial compartment. Normal lateral femorotibial compartment. Normal patellofemoral articulation. The soft tissue structures are unremarkable. RAD/Knee 3 Views IMPRESSION: Normal x-ray examination of the knee. Electronically Signed: Rufino Kemp DO at 20:33 EDT Tel , Service support ,
--- NOTE | 2017-10-04 21:10 | ED.VISSUMM ---
- ER Visit Summary Date of Service: 10/04/17 Chief Complaint: Bilateral leg pain History of Present Illness: The patient is a 42 F presenting for evaluation secondary to bilateral leg pain. Patient reports that she has been having issues with bilateral leg pain that goes from her knees all the way down to her feet. Patient states this been having intermittently over the course of the last 2-3 months, worse in the last day or so and seems to be left more so than right. Patient reports that this seems to be worse with ambulating and better with rest. She denies any numbness weakness paresthesias. She denies any presence of fevers associated with this. She denies any constitutional symptoms such as nausea vomiting chest pain shortness of breath. Patient is a smoker, has an underlying history of diabetes GERD and rheumatoid arthritis. Patient states that she has not yet seen her primary care physician for this. Physical Examination: Vital signs are within normal limits, patient is afebrile. General: Patient is well-nourished well-developed and in no acute distress. Head: Normocephalic, atraumatic Eyes: Pupils equal round and reactive bilaterally, extra occular motion intact bialterally ENT: Moist mucous membranes Neck: Supple, no lymphadenopathy, no JVD, no meningismus CVS: Heart regular rate and rhythm, no murmurs, rubs or gallops, radial pulses 2+ bilaterally Resp: Respirations nondistressed, lung sounds clear bilaterally Abdomen: Soft, nontender, nondistended, no palpable masses, normal bowel sounds Back: Nontender Extremities: Examination of the patient's bilateral lower extremities shows soft compartments throughout with no evidence of palpable cord normal range of motion of the hip knee ankle and feet no reproducible tenderness to palpation noted. No skin changes noted. 2+ DP and PT pulses with normal capillary refill throughout the feet. Skin: warm, no rashes, no petechia Neuro: Alert and oriented x 4, CN 2-12 intact, no lateralizing neurological defecits Psyc: Normal affect Test Results: Bilateral knee x-rays negative Emergency Department Course and Treatment: Patient presented for evaluation secondary to bilateral pain. There was no reproducible pain on the patient's exam, patient was concerned that this potentially was associated with her knees so I performed x-rays radiology found these to be negative. Patient is a relatively heavy smoker, and complains of pain with ambulation that is better with rest. This likely is consistent with claudication, but she has normal capillary refill and normal pulses in the leg. I recommended that she stop smoking immediately. I recommended that she follow-up with her primary care physician for initiation of workup of this. Patient understands signs and symptoms which to return and was discharged in stable condition. Disposition: Discharge Impression: 1. Claudication 2. Tobacco abuse This note was generated with [employer] dictation software. It may contain incorrect words, spelling, and punctuation that were not noted in review of the chart prior to signing ED Disposition - Plan for ED Patient: Disposition: Home or Assisted Living Chief Complaint: Lower Extremity Injury Diagnosis: Claudication, Tobacco abuse Instructions: ED PVD, ED Smoking Cessation Referrals: Timmy Park MD [Primary Care Provider] - As soon as possible
[2017-10-04] MEDS: HYDROcodone Bitartrate/Apap 5/325 Tablet PO (21:34)
== END 2017-10-04 22:10 | disposition home or self-care (01) ==
PROVIDERS: Emergency Provider Emergency Medicine; Family Provider Internal Medicine; PCP Internal Medicine
DX: I73.9 Peripheral vascular disease, unspecified (principal); F17.200 Nicotine dependence, unspecified, uncomplicated; K21.9 Gastro-esophageal reflux disease without esophagitis; M06.9 Rheumatoid arthritis, unspecified; J45.909 Unspecified asthma, uncomplicated; Z79.82 Long term (current) use of aspirin; Z79.4 Long term (current) use of insulin; Z79.899 Other long term (current) drug therapy
CPT/HCPCS: 73562; 99283

== ENCOUNTER 2017-10-10 21:59 | Emergency (ER) | payer MEDICARE, SELFPAY ==
[2017-10-10 22:00] VITALS: BP 129/73; PULSE 91; RESP 15; TEMP 37; BMI 25.9
--- NOTE | 2017-10-10 22:27 | ED.DCSUM_ITS ---
- ER Visit Summary Date of Service: 10/10/17 Chief Complaint: Acute on chronic right hip pain History of Present Illness: The patient is a [address] chronic right hip pain for years. She sees pain management. They often give her cortisone shots in her right hip. She says she has not had one for a while. But she is getting ready to restart pain management follow-up. She denies any fall or trauma. She denies any redness or fever. She states this is her chronic pain. She was coming in hoping to get something for pain. Physical Examination: Well-appearing middle-aged female. No acute distress. Vital signs are stable afebrile. HEENT exam poor dentition otherwise unremarkable. Neck nontender. Lungs clear to auscultation bilaterally. Heart regular rate and rhythm no murmur rate about 85. Abdomen soft nontender. She is moving all 4 extremities. They are neurovascularly intact. Calves nontender without edema or cords. There is no gross bony deformity. She is able to flex and extend at the right hip. Back exam nontender. Neurologically she is awake alert with no focal motor or sensory deficits. Test Results: None Emergency Department Course and Treatment: This is acute on chronic pain. There is no workup, labs or radiographic studies [place]. Patient has had a history of drug abuse in the past. 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 I explained to her the worst thing we could do would be give her narcotic pain medications. She will be given 1 dose of IM Toradol. And discharged home. She did request crutches. Treatment Plan: Call and follow-up with her pain management doctors. Disposition: Discharge Impression: Acute on recurrent and chronic right hip pain This note was generated with [employer] dictation software. It may contain incorrect words, spelling, and punctuation that were not noted in review of the chart prior to signing ED Disposition - Plan for ED Patient: Chief Complaint: Lower Extremity Injury Referrals: Timmy Park MD [Primary Care Provider] -
--- NOTE | 2017-10-10 22:27 | ED.DEP ---
ED Disposition - Plan for ED Patient: Disposition: Home or Assisted Living Chief Complaint: Lower Extremity Injury Instructions: ED Chronic Pain Management Referrals: Timmy Park MD [Primary Care Provider] - As Needed Additional Instructions: Motrin and/or Tylenol for pain. Call and follow-up the pain management physicians as soon as possible.
[2017-10-10] MEDS: Ketorolac 60 MG/2 ML Vial IM (22:33)
[2017-10-10 22:54] VITALS: BP 109/84; PULSE 78; RESP 16; O2SAT 97
== END 2017-10-10 22:57 | disposition home or self-care (01) ==
LOC: ED 22:41
PROVIDERS: Emergency Provider Emergency Medicine; Family Provider Internal Medicine; PCP Internal Medicine
DX: M25.551 Pain in right hip (principal); G89.29 Other chronic pain; E11.9 Type 2 diabetes mellitus without complications; E78.00 Pure hypercholesterolemia, unspecified; Z79.4 Long term (current) use of insulin; Z79.84 Long term (current) use of oral hypoglycemic drugs; Z79.899 Other long term (current) drug therapy; Z72.0 Tobacco use
CPT/HCPCS: 96372; 99283

== ENCOUNTER 2017-10-17 19:31 | Emergency (ER) | payer MEDICARE, SELFPAY ==
[2017-10-17 19:35] VITALS: BP 121/81; PULSE 110; RESP 18; RESP 20; TEMP 37.1; O2SAT 95; BMI 26.4
[2017-10-17 20:08] LABS: Absolute Neutrophil Count 8.7 X10^3/uL (2.0-7.7); Basophil# 0.02 X10^3/uL; Basophil% 0.1 % (0-1); Eosinophil# 0.15 X10^3/uL; Eosinophils% 1.1 % (0-5); Hematocrit 38.6 % (37-47); Hemoglobin 13.1 g/dl (12.0-15.0); Lymphocyte % 29.5 % (19-41); Mean Corp Hgb Conc 33.9 g/gl (32-36); Mean Corpuscular Hgb 30.3 pg (27.0-32.0); Mean Corpuscular Volume 89.4 fL (81-99); Mean Platelet Vol. 10.6 fl (6.2-12.0); Monocyte# 0.86 X10^3/uL; Monocyte% 6.2 % (0-10); Neutrophil # 8.73 X10^3/uL (2.7-7.7); Platelet Count 328 K/mm3 (150-450); RBC Distribution Width CV 12.8 % (11.6-14.6); Red Blood Count 4.32 M/mm3 (4.2-5.4); White Blood Count 13.9 K/mm3 (4.4-11.0)
[2017-10-17 20:09] LABS: POSITIVE COUNT NO; POSITIVE DIFFERENTIAL NO; POSITIVE MORPHOLOGY NO
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
--- NOTE | 2017-10-17 20:17 | ED.DEP ---
ED Disposition - Plan for ED Patient: Chief Complaint: Lower Extremity Injury Instructions: ED Hematoma Referrals: Timmy Park MD [Primary Care Provider] -
[2017-10-17 20:39] VITALS: BP 120/85; PULSE 101; RESP 17; O2SAT 95
== END 2017-10-17 20:40 | disposition home or self-care (01) ==
LOC: ED 19:47
PROVIDERS: Emergency Provider Emergency Medicine; Family Provider Internal Medicine; PCP Internal Medicine
DX: S70.12XA Contusion of left thigh, initial encounter (principal); W22.8XXA Striking against or struck by other objects, initial encounter; Y93.9 Activity, unspecified; Y92.9 Unspecified place or not applicable; E11.9 Type 2 diabetes mellitus without complications; E78.00 Pure hypercholesterolemia, unspecified; Z79.82 Long term (current) use of aspirin; Z79.4 Long term (current) use of insulin; Z79.84 Long term (current) use of oral hypoglycemic drugs; Z79.899 Other long term (current) drug therapy; Z72.0 Tobacco use
CPT/HCPCS: 85025; 99282

== ENCOUNTER → 2017-11-12 12:08 | Outpatient (CLI) | payer MEDICARE, SELFPAY | PROVIDERS: Family Provider Internal Medicine; PCP Internal Medicine; Visit Provider Nurse Practitioner Family | DX: M46.96 Unspecified inflammatory spondylopathy, lumbar region (principal); M51.37 Other intervertebral disc degeneration, lumbosacral region; M54.16 Radiculopathy, lumbar region | CPT/HCPCS: 72148 ==

== ENCOUNTER 2017-11-15 17:38 | Emergency (ER) | payer MEDICARE, MEDICAID, SELFPAY ==
[2017-11-15 17:39] VITALS: BP 120/74; PULSE 96; RESP 16; TEMP 36.6; BMI 26.5
[2017-11-15] MEDS: HYDROcodone Bitartrate/Apap 5/325 Tablet PO (18:52)
--- NOTE | 2017-11-15 19:20 | ED.VISSUMM ---
- ER Visit Summary Date of Service: 11/15/17 Chief Complaint: Patient states she has bad hips and has bilateral hip pain History of Present Illness: The patient is a 42 F who presents with bilateral hip pain. She states she had a recent MRI. She localizes the pain to the lower back and not the hip region. Furthermore, the MRI that was performed was of her LS-spine not her pelvis or hips. She denies fever, chills night sweats. She states she is in pain management. She states she has not an appointment until next month. She is presently on gabapentin. She denies bowel bladder dysfunction. She denies saddle paresthesia or anesthesia. She denies radicular pain. She denies foot drop. Denies weakness in the quadricep muscles going up or down steps. She reports pain with walking. MRI reveals degenerative disc disease multiple levels lumbar spine and there is a protruded disc L4-5 with no effacement or compression. Physical Examination: Patient appears in no distress as I entered the room she was doing something on her smart phone, radha. Vital signs are normal. She is not febrile. HEENT exam is remarkable for poor dentition. Heart is regular without murmur, gallop or rub. S1 and S2 are normal. Lungs are clear to auscultation with good movement of air bilaterally. Abdomen is soft nontender. Logrolling of the right and left lower extremity causes no discomfort. There is no swelling of right or left knee. There is no pain the patient the ankle or feet. Distal pulses are palpable. Straight leg test is negative. Crossover test is negative. DTRs the patella and ankle are 1-2+ and symmetric. EHL is intact. She has normal sensation. Flexion of the hip to 90? internal/external rotation does not cause any discomfort in the inguinal area or over the greater trochanteric region. Test Results: Reviewed MRI results and patient was informed of her MRI results Emergency Department Course and Treatment: Patient received a dose of [place]. After reviewing her MRI and reevaluating her she was informed that her MRI was not of her pelvis. She also was informed since she is in pain management if I were to prescribe her any pain medicine this would be a violation of her contract with her pain management doctor. She questioned me. I informed her again I will not prescribe her any medication because this would be a violation of contract with pain management physician. I informed her my decision and remarks are based on many years of experience. And it is in her best interest for me not to write a prescription Treatment Plan: Contact pain management doctor for earlier appointment Disposition: Discharged home Impression: Bilateral low back pain without sciatica This note was generated with [employer] dictation software. It may contain incorrect words, spelling, and punctuation that were not noted in review of the chart prior to signing Yes ED Disposition - Plan for ED Patient: Disposition: Home or Assisted Living Chief Complaint: Lower Extremity Injury Instructions: Managing Chronic Pain: Activity, Managing Chronic Pain: Therapies for Mind and Body Referrals: Timmy Park MD [Primary Care Provider] - As Needed Additional Instructions: Contact your pain management doctor for earlier appointment
== END 2017-11-15 19:31 | disposition home or self-care (01) ==
PROVIDERS: Emergency Provider Emergency Medicine; Family Provider Internal Medicine; PCP Internal Medicine
DX: M54.5 Low back pain (principal); E66.9 Obesity, unspecified; Z68.26 Body mass index [BMI] 26.0-26.9, adult; M06.9 Rheumatoid arthritis, unspecified; F32.9 Major depressive disorder, single episode, unspecified; F41.9 Anxiety disorder, unspecified; G50.0 Trigeminal neuralgia; Z79.899 Other long term (current) drug therapy; Z72.0 Tobacco use
CPT/HCPCS: 99281

== ENCOUNTER → 2017-11-26 16:49 | Outpatient (CLI) | payer MEDICARE, MEDICAID, SELFPAY ==
[2017-11-26 17:10] LABS: CREATININE FINGERSTICK < 0.6 mg/dL (0.55-1.02); EGFR FINGERSTICK > 60.0000 mL/min (>60)
== END ==
PROVIDERS: Family Provider Internal Medicine; PCP Internal Medicine; Visit Provider Surgery
DX: J98.8 Other specified respiratory disorders (principal); J34.89 Other specified disorders of nose and nasal sinuses; S02.31XS Fracture of orbital floor, right side, sequela; F17.200 Nicotine dependence, unspecified, uncomplicated
CPT/HCPCS: 70487; Q9967

== ENCOUNTER 2018-01-02 10:00 | Emergency (ER) | payer MEDICARE, SELFPAY ==
[2018-01-02 10:01] VITALS: BP 123/75; PULSE 85; RESP 16; TEMP 36.6; O2SAT 97; BMI 27.8
--- NOTE | 2018-01-02 10:17 | ED.VISSUMM ---
- ER Visit Summary Date of Service: 01/02/18 Chief Complaint: [] Bee sting right calf History of Present Illness: The patient is a 42 F [] stung by bee right calf Physical Examination: General, no distress resting comfortably, vital signs within normal range HEENT is generally unremarkable The neck is supple no adenopathy Cardiovascular, regular rate and rhythm Lungs, clear bilateral Abdomen, soft nontender Extremities, no clubbing cyanosis or edema, to the right calf area there is what appears to be a small insect bite circular red lesion no foreign bodies appreciated full range of motion of that joint completely neurovascular function normal no other complaints Neurologic, awake alert answering questions appropriately moving all 4 extremities Test Results: [] Emergency Department Course and Treatment: [] Explained all the above to the patient given this history the fact she has localized swelling only no systemic signs she was started on Benadryl we continue to observe her she has no further complaints or concerns, she has been seen by an emergency communications dispatcher for bee stings, she is currently prescribed an EpiPen to use as she needs to and she can see the emergency communications dispatcher for further follow-up. She knows to return if she has any systemic signs such as shortness of breath. Treatment Plan: [] Disposition: [] Impression: [] Bee sting right lower leg This note was generated with [employer] dictation software. It may contain incorrect words, spelling, and punctuation that were not noted in review of the chart prior to signing ED Disposition - Plan for ED Patient: Chief Complaint: Allergic Reaction Referrals: Timmy Park MD [Primary Care Provider] -
[2018-01-02] MEDS: DiphenhydrAMINE 25 MG Capsule PO (10:18)
--- NOTE | 2018-01-02 10:23 | ED.DCSUM_ITS ---
- ER Visit Summary Date of Service: 01/02/18 Chief Complaint: [] Bee sting right calf History of Present Illness: The patient is a 42 F [] stung by bee right calf Physical Examination: General, no distress resting comfortably, vital signs within normal range HEENT is generally unremarkable The neck is supple no adenopathy Cardiovascular, regular rate and rhythm Lungs, clear bilateral Abdomen, soft nontender Extremities, no clubbing cyanosis or edema, to the right calf area there is what appears to be a small insect bite circular red lesion no foreign bodies appreciated full range of motion of that joint completely neurovascular function normal no other complaints Neurologic, awake alert answering questions appropriately moving all 4 extremities Test Results: [] Emergency Department Course and Treatment: [] Explained all the above to the patient given this history the fact she has localized swelling only no systemic signs she was started on Benadryl we continue to observe her she has no further complaints or concerns, she has been seen by an master printer for bee stings, she is currently prescribed an EpiPen to use as she needs to and she can see the master printer for further follow-up. She knows to return if she has any systemic signs such as shortness of breath. Treatment Plan: [] Disposition: [] Impression: [] Bee sting right lower leg This note was generated with [employer] dictation software. It may contain incorrect words, spelling, and punctuation that were not noted in review of the chart prior to signing ED Disposition - Plan for ED Patient: Chief Complaint: Allergic Reaction Referrals: Timmy Park MD [Primary Care Provider] -
--- NOTE | 2018-01-02 10:23 | ED.DEP ---
ED Disposition - Plan for ED Patient: Chief Complaint: Allergic Reaction Instructions: ED Bite Sting Insect Local Allergic React Prescriptions: DiphenhydrAMINE [Benadryl] 25 mg PO TID PRN 7 Days cap Referrals: Timmy Park MD [Primary Care Provider] -
[2018-01-02 11:00] VITALS: BP 126/86; PULSE 86; RESP 16; O2SAT 98
== END 2018-01-02 11:01 | disposition home or self-care (01) ==
PROVIDERS: Emergency Provider Emergency Medicine; Family Provider Internal Medicine; PCP Internal Medicine
DX: T63.441A Toxic effect of venom of bees, accidental (unintentional), initial encounter (principal); M79.89 Other specified soft tissue disorders; E11.9 Type 2 diabetes mellitus without complications; Z79.4 Long term (current) use of insulin; Z79.899 Other long term (current) drug therapy
CPT/HCPCS: 99283

== ENCOUNTER 2018-01-10 08:32 | Emergency (ER) | payer MEDICARE, SELFPAY ==
[2018-01-10 08:33] VITALS: BP 120/76; PULSE 74; RESP 18; TEMP 36.6; O2SAT 100; BMI 28.1
--- NOTE | 2018-01-10 08:42 | RAD_ITS ---
STUDY: X-RAY - RIGHT KNEE REASON FOR EXAM: Female, 42 years old. Status post fall TECHNIQUE: 4 view(s) of the knee. The lateral view is an obliquity. COMPARISON: October 04, 2017 FINDINGS: Normal visualized distal femur. Normal visualized proximal tibia and fibula. Normal proximal tibiofibular articulation. Normal medial femorotibial compartment. Normal lateral femorotibial compartment. On the sunrise view there is slight lateral subluxation of the patella. The lateral view is an obliquity. There is a slight widened appearance of the The soft tissue structures are unremarkable. RAD/Knee 4 or More Views IMPRESSION: No visualized evidence of an acute fracture. Stable right knee x-ray. Electronically Signed: Jeanie Michael MD at 9:15 EDT Tel , Service support ,
--- NOTE | 2018-01-10 08:42 | ED.VISSUMM ---
- ER Visit Summary Date of Service: 01/10/18 Chief Complaint: Right knee injury History of Present Illness: The patient is a 42 F mechanical fall overnight on a flexed knee. States tripped over mother's Rollator falling directly on linoleum floor. No head injuries. No paresthesias. States broken arm as a child. Comes in with crutches. On ibuprofen and diclofenac as needed at home. History of gastric reflux. No other injuries. Physical Examination: General: Alert and oriented ?3, no acute distress HEENT: Normocephalic, atraumatic. Moist mucosa membranes Neck: supple, nontender. Cardiovascular: Regular rate and rhythm, no murmurs Respiratory: Normal breath sounds, symmetric, no distress Abdomen: Soft, nontender, nondistended Extremities: Right lower extremity: Negative logroll. Knee extensor mechanism intact. There is tender palpation mid patella with no deformities. Negative varus and valgus. No ankle tenderness. Skin intact. Neurovascular intact. Neuro: no focal neurological deficits. Test Results: Right knee x-ray: No fracture dislocation Emergency Department Course and Treatment: Ice was placed, images of the knee reviewed by myself shows no fracture dislocation. Jaret wrap provided should continue crutches as needed. Discussed with patient continue her anti-inflammatory medicines at home. Rice therapy. Follow-up with her PCP. Treatment Plan: [] Disposition: Discharge Impression: 1. Right knee contusion 2. Mechanical fall This note was generated with [employer] dictation software. It may contain incorrect words, spelling, and punctuation that were not noted in review of the chart prior to signing ED Disposition - Plan for ED Patient: Disposition: Home or Assisted Living Chief Complaint: Lower Extremity Injury Diagnosis: Contusion of right knee Instructions: ED Contusion Lower Ext Referrals: Timmy Park MD [Primary Care Provider] - 5-7 Days Additional Instructions: Continue to ice and elevate. Jaret wrap for comfort. Use your ibuprofen or your diclofenac as needed.
== END 2018-01-10 09:15 | disposition home or self-care (01) ==
PROVIDERS: Emergency Provider Emergency Medicine; Family Provider Internal Medicine; PCP Internal Medicine
DX: S80.01XA Contusion of right knee, initial encounter (principal); W18.09XA Striking against other object with subsequent fall, initial encounter; Y93.9 Activity, unspecified; K21.9 Gastro-esophageal reflux disease without esophagitis; E11.9 Type 2 diabetes mellitus without complications; M06.9 Rheumatoid arthritis, unspecified; F32.9 Major depressive disorder, single episode, unspecified; F41.9 Anxiety disorder, unspecified; G50.0 Trigeminal neuralgia; Z79.4 Long term (current) use of insulin; Z79.899 Other long term (current) drug therapy; Z72.0 Tobacco use
CPT/HCPCS: 73564; 99283

== ENCOUNTER 2018-01-12 19:59 | Emergency (ER) | payer MEDICARE, SELFPAY ==
[2018-01-12 20:01] VITALS: BP 133/81; PULSE 101; RESP 16; TEMP 35.9; O2SAT 99; BMI 28.1
--- NOTE | 2018-01-12 21:22 | ED.VISSUMM ---
- ER Visit Summary Date of Service: 01/12/18 Chief Complaint: Abscess History of Present Illness: The patient is a 42 F left groin abscess over 2 days. No drainage. History of diabetes. No fevers. History abscess drainage 2 years ago. Denies IV drug use. Tobacco history. Physical Examination: General: Alert and oriented ?3, no acute distress HEENT: Normocephalic, atraumatic. Moist mucosa membranes Neck: supple, nontender. Cardiovascular: Regular rate and rhythm, no murmurs Respiratory: Normal breath sounds, symmetric, no distress Abdomen: Soft, nontender, nondistended Extremities: Nontender, no edema, pulses intact ?4 Neuro: no focal neurological deficits. Skin: 2 cm induration fluctuance left mid groin. Surrounding erythema. No active drainage. Tender to palpation. Test Results: [] Emergency Department Course and Treatment: Patient nontoxic, left groin abscess with cellulitis. Incised and drained with copious exudates. Wound care discussed. Started on Keflex and Bactrim. Trent for pain. OARRS report checked. Follow-up with PCP. Signs and symptoms discussed. Treatment Plan: [] Disposition: Discharge Impression: Left groin abscess with cellulitis status post incision and drainage This note was generated with [employer] dictation software. It may contain incorrect words, spelling, and punctuation that were not noted in review of the chart prior to signing ED Disposition - Plan for ED Patient: Disposition: Home or Assisted Living Chief Complaint: Abscess Diagnosis: Abscess of left groin, Cellulitis of left groin Instructions: ED Abscess IandD, ED Infec Skin Cellulitis Prescriptions: Hydrocodone Bitart/Apap 5-325 [Trent 5MG-325MG] 1 tablet PO Q6H PRN PRN 3 Days #10 tablet PRN Reason: Pain Cephalexin [Keflex] 500 mg PO Q6 #40 capsule Smz/Tmp Ds [Bactrim Ds] 1 tablet PO BID #20 tablet Referrals: Timmy Park MD [Primary Care Provider] - 2 Days for wound check
[2018-01-12] MEDS: Cephalexin 250 MG Capsule 500 MG PO (21:38)
[2018-01-12] MEDS: HYDROcodone Bitartrate/Apap 5/325 Tablet PO (21:38)
[2018-01-12] MEDS: Smz/Tmp Ds Tablet 1 TABLET PO (21:38)
[2018-01-12 22:55] VITALS: BP 110/60; PULSE 78; RESP 20; O2SAT 95
== END 2018-01-12 22:59 | disposition home or self-care (01) ==
PROVIDERS: Emergency Provider Emergency Medicine; Family Provider Internal Medicine; PCP Internal Medicine
DX: L02.214 Cutaneous abscess of groin (principal); L03.314 Cellulitis of groin; B96.89 Other specified bacterial agents as the cause of diseases classified elsewhere; E11.9 Type 2 diabetes mellitus without complications; J45.909 Unspecified asthma, uncomplicated; K21.9 Gastro-esophageal reflux disease without esophagitis; M06.9 Rheumatoid arthritis, unspecified; G50.0 Trigeminal neuralgia; Z79.84 Long term (current) use of oral hypoglycemic drugs; Z79.899 Other long term (current) drug therapy; Z72.0 Tobacco use
CPT/HCPCS: 10060; 99284

== ENCOUNTER 2018-02-16 07:17 | Day surgery (SDC) | payer MEDICARE, SELFPAY ==
[2018-02-10 09:41] LABS: Hematocrit 38.7 % (37-47); Hemoglobin 12.7 g/dl (12.0-15.0); Mean Corp Hgb Conc 32.8 g/gl (32-36); Mean Corpuscular Hgb 30.3 pg (27.0-32.0); Mean Corpuscular Volume 92.4 fL (81-99); Mean Platelet Vol. 10.4 fl (6.2-12.0); Platelet Count 278 K/mm3 (150-450); RBC Distribution Width SD 42.6 fl (35.1-43.9); Red Blood Count 4.19 M/mm3 (4.2-5.4); White Blood Count 9.4 K/mm3 (4.4-11.0)
[2018-02-10 09:43] LABS: Scan Indicated on CBC? Y/N NO
[2018-02-10 09:52] LABS: Hemoglobin A1c 7.3 % (4.2-6.3); International Normalized Ratio 0.9; Prothrombin Time (Protime)PT. 12.2 SECONDS (11.7-14.9)
[2018-02-10 09:53] LABS: Partial Thromboplast Time 30.4 Seconds (24.1-36.2)
[2018-02-10 10:20] LABS: AST(SGOT) 17 U/L (15-37); Alanine Aminotransfer ALT/SGPT 34 U/L (13-56); Albumin, Serum 3.4 g/dL (3.2-5.0); Alkaline Phosphatase 93 U/L (45-117); Anion Gap 9 (5-15); BUN 11 mg/dL (7-18); BUN/Creat Ratio 16.3 RATIO (10-20); Bilirubin, Direct 0.06 mg/dL (0.00-0.30); Chloride 103 mmol/L (98-107); Creatinine, Serum 0.67 mg/dL (0.55-1.02); EST Glomerular Filtration Rate 102 mL/min (>60); Est Glom Filt Rate - Afr Amer 124 mL/min (>60); Globulin 3.4 g/dL (2.2-4.2); Glucose 159 mg/dL (74-106); Potassium 3.5 mmol/L (3.5-5.1); Protein, Total 6.8 g/dL (6.4-8.2); Sodium Level 140 mmol/L (136-145)
[2018-02-16] VITALS (9 sets, daily range): BP systolic 116–141; BP diastolic 71–89; PULSE 89–106; RESP 14–24; TEMP 35.8–37.5; O2SAT 92–98; BMI 27.8
--- NOTE | 2018-02-16 00:16 | HP.PCM_ITS ---
History and Physical Date of Admission: 02/16/18 Allergies bee venom protein (honey bee) Allergy (Verified 12/17/17 15:16) Angioedema mold Allergy (Verified 12/17/17 15:16) Itching naproxen Allergy (Verified 12/17/17 15:16) Unknown venom-honey bee [bee venom (honey bee)] Allergy (Verified 12/17/17 15:16) Swelling amoxicillin Adverse Reaction (Verified 12/17/17 15:16) Upset Stomach guaifenesin [From Robitussin] Adverse Reaction (Verified 12/17/17 15:16) Nausea Medications Ranitidine [Zantac] 150 mg PO BID PRN 12/30/13 [History Confirmed 10/10/17] Epinephrine [Epi Pen] 0.3 mg IM X1 PRN 10/31/15 [History Confirmed 10/10/17] Escitalopram Oxalate [Lexapro] 30 mg PO DAILY 11/24/15 [History Confirmed 10/10/17] DiphenhydrAMINE [Benadryl] 25 mg PO TID PRN PRN #20 cap 02/24/16 [Rx Confirmed 10/10/17] Fluticasone 0.05% [Flonase Nasal [place]] 1 spray NASAL DAILY 05/01/16 [History Confirmed 10/10/17] Albuterol Inhaler [Ventolin Hfa] 1 - 2 puff INHALATION Q4H PRN PRN 06/13/16 [History Confirmed 10/10/17] Ibuprofen [Motrin] 800 mg PO TID PRN PRN #20 tab 07/20/16 [Rx Confirmed 10/10/17] Gabapentin [Neurontin] 300 mg PO TID 07/25/16 [History Confirmed 10/10/17] Albuterol Aerosols [Ventolin Aerosols] 2.5 mg INHALATION Q4H PRN PRN #30 vial 08/05/16 [Rx Confirmed 10/10/17] Acetaminophen [Tylenol Extra Strength] 500 - 1,000 mg PO Q6H PRN PRN 04/18/17 [History Confirmed 10/10/17] Aspirin/Acetaminophen/Caffeine [Excedrin Migraine Caplet] 1 ea PO PRN PRN 04/27/17 [History Confirmed 10/10/17] Insulin Aspart [Novolog Flexpen] See Protocol SC ACHS #1 flexpen 04/30/17 [Rx Confirmed 10/10/17] Metformin HCl [Glucophage] 500 mg PO BIDCM #60 tab 04/30/17 [Rx Confirmed 10/10/17] Docusate Sodium [Colace] 100 mg PO BID #60 cap 05/01/17 [Rx Confirmed 10/10/17] Atorvastatin Calcium [Lipitor] 10 mg PO QHS 10/10/17 [History Confirmed 10/10/17] Cetirizine HCl [Zyrtec] 10 mg PO DAILY 10/10/17 [History Confirmed 10/10/17] Diclofenac [Voltaren] 75 mg PO BIDCM 10/10/17 [History Confirmed 10/10/17] Insulin Detemir [Levemir FlexPen] 27 units SUBCUT QHS 10/10/17 [History Confirmed 10/10/17] Pramipexole Di-HCl [Mirapex] 0.125 mg PO QHS 10/10/17 [History Confirmed 10/10/17] PFSH Medical History Acid reflux disease (Acute) Anxiety (Acute) Arthritis (Acute) Asthma (Acute) Back problem (Acute) Bladder infection (Acute) Chronic headaches (Acute) Diabetes (Acute) Fracture of orbital floor, blow-out, right, closed (Acute) Gallstones (Acute) Hearing problem (Acute) Rheumatoid arteritis (Acute) Seasonal allergies (Acute) Vision problems (Acute) Surgical History Closed fracture of right orbital floor (Acute) H/O section (Acute) History of cholecystectomy (Acute) History of nasal septoplasty (Acute) Family History Unknown No problems noted. Social History Smoking Status: Current every day smoker second hand exposure: Yes alcohol intake: former substance use type: does not use what type of physical activity do you participate in: walking seatbelt use: always additional social history: SUN EXPOSURE: FREQUENTLY HPI evaluation breathing difficulty left side of nose: HISTORY OF PRESENT ILLNESS 42 year old woman comes in with complaints of difficulty breathing from the left side of her nose. She initially had a right orbital floor blowout fracture that was repaired in 11/12. 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 On 04/28/17, she underwent septoplasty with submucous resection and repair of internal nasal vestibular stenosis with placement of bilateral cartilage basket bottom machine operator 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 Postop she did well initially until recently when she started developing breathing difficulties from the left side of her nose. She denies any trauma. She denies any epistaxis, discharge, crusting, dryness, or whistling. She has some intermittent discomfort. She goes to the pain center for low back pain and she gets Neurontin from their office. She states that when she pulls on her cheeks that spreads the nose a little bit and she is able to breathe a little easier. She has no visual complaints. When I saw her in October, I noted a nasal septal perforation which is contributing to her symptomatology. A CT was done on 11/26/17 which noted the nasal septal perforation. She presents at this time for further evaluation and treatment. REVIEW OF SYSTEMS General -Denies fever, fatigue and weight loss. Eyes-denies eye pain. ENT -Denies nasal congestion and sore throat. Has difficulty breathing out of the left side of her nose. Denies epistaxis, discharge, crusting, dryness, and whistling. Has a nasal septal perforation. CV -Denies chest pain or discomfort, fatigue, lightheadedness and shortness of breath with exertion. Resp -Denies cough and shortness of breath. Has difficulty breathing out of the left side of her nose. pt is a current smoker. GI -Denies nausea, vomiting, diarrhea and constipation. -Denies blood in urine and urinary frequency. MS -Denies joint pain, joint swelling, back pain, stiffness, muscle weakness and arthritis. Derm -Denies skin cancer and rash. Neuro -Denies headaches and weakness. Psych -Denies anxiety and depression. Endo -Denies excessive urination and excessive thirst. Heme -Denies bleeding and abnormal bruising. PHYSICAL EXAMINATION General: -well developed, well nourished, in no acute distress. HEENT: PERRL/EOM intact, conjunctiva and sclera clear. No facial swelling. No bony tenderness. No dorsal deviation. [place] maneuver is positive mostly on the left side suggesting internal nasal valve vestibular stenosis from scarring or trauma. In the mid-portion of the septum, there is a septal perforation, between 1.5-2 cm. No septal deviation noted. There is some weakening and mild collapse of the dorsal septum secondary to the presence of the nasal septal perforation. She is missing a lot of teeth. There are no obvious occlusion irregularities. Throat is clear. Neck: -no masses, thyromegaly, or abnormal cervical nodes. Lungs: -clear bilaterally to auscultation. Heart: -regular rate and rhythm. Pulses: -Radial pulses palpable Extremities: -no clubbing, cyanosis, edema, or deformity noted with normal full range of motion of all joints. Neurologic: -cranial nerves II-XII grossly intact. Skin: -no rashes Cervical Nodes: -no significant adenopathy. Axillary Nodes: -no significant adenopathy. Psych: -alert and cooperative; normal mood and affect. ASSESSMENT 1. Nasal airway obstruction with difficulty breathing. 2. Recurrent internal nasal valve vestibular stenosis. 3. Nasal septal perforation. 4. Right orbital floor blowout fracture repair, sequela. 5. Smoker. PLAN CT reviewed. It showed the nasal septal perforation. She has recurrent internal nasal valve vestibular stenosis with a decrease in the angle secondary to either scarring and/or trauma. The [place] maneuver was positive which is lateral traction on the cheek leading to increased airflow. Sometimes the swelling from the face fracture and the swelling from the repair of the facial fracture can lead to scarring in this area as well as previous surgical repair of her internal nasal valve vestibular stenosis. To help with her breathing difficulties, she may need additional complex nasal reconstruction with placement of additional cartilage basket bottom machine operator grafts to help increase the internal nasal valve angle a little bit to help to increase airflow by decreasing the turbulence secondary to scarring and trauma and improve the internal nasal vestibular stenosis. The placement of additional cartilage grafts should help stabilize the weakening of the dorsal septum and improve the mild collapse of the dorsal septum with a septal dermatoplasty. Will obtain the cartilage grafts from the ear. For additional reinforcement, placement of PDS plate graft may be used. Will assess the septal perforation during surgery. The patient is having mild symptomatology. Some surgical options for repair include mucosal flaps, biologic grafts (i.e., Alloderm), nasolabial flaps, fascial grafts, skin grafts and FAMM flaps. Also a nasal septal prosthesis button may be needed as well. This nasal reconstruction surgery will be done under general anesthesia with a possible surgical observation overnight stay. The patient was informed of the risks and complications of the procedure including alternatives to surgery. These were discussed with her personally. She voices understanding and wishes to proceed. Some of the risks and complications were included in a form from the [employer]. Patient is aware that with further surgery, she will have a dorsal nasal splint for a few weeks and nasal packing for a few days. Encouraged the patient to stop smoking as it may have deleterious effects on wound healing. Will check a nicotine level preoperatively. She is aware that despite complex nasal reconstruction, nasal septal perforations can develop healing issues and recur. She is aware of that possibility and wishes to proceed. That is why I want to maximize her healing chances by having her stop smoking prior to surgery.
--- NOTE | 2018-02-16 07:52 | EKG12_ITS ---
Test Reason : PRE OP Blood Pressure : / mmHG Vent. Rate : 087 BPM Atrial Rate : 087 BPM P-R Int : 152 ms QRS Dur : 072 ms QT Int : 372 ms P-R-T Axes : 042 -08 028 degrees QTc Int : 447 ms Normal sinus rhythm Normal ECG When compared with ECG of 29-APR-2017 05:26, No significant change was found Confirmed by FARHAT NGUYEN, BRODERICK ([id number]), editor farm journal KERLINE MILIAN ([id number]) on 02/19/2018 2:29:38 PM Referred By: Roberto Holden Confirmed By:BRODERICK DOUGHERTY MD
[2018-02-16 08:20] LABS: Bedside Glucose 169 mg/dL (70-110)
[2018-02-16 08:44] LABS: COTININE Drug Screen Positive (<200 ng/mL)
[2018-02-16] MEDS: Oxymetazoline 0.05% 1 SPRAY SPRAY.BTL 15 SPRAY (10:02)
[2018-02-16] MEDS: Mupirocin Ointment 22gm Tube 1 APPLIC (15:27)
--- NOTE | 2018-02-16 15:50 | RAD_ITS ---
STUDY: X-RAY - SKULL REASON FOR EXAM: Female, 42 years old. Possible foreign body TECHNIQUE: 4 fluoroscopic view(s) of the skull were obtained. COMPARISON: None. FINDINGS: Endotracheal tube noted. No radiopaque foreign body demonstrated. RAD/Skull less than 4 Views IMPRESSION: No retained radiopaque foreign body identified. Electronically Signed: Toño Smith MD at 21:49 EST , Service support ,
--- NOTE | 2018-02-16 16:27 | PCM.IMDPSTOP ---
Immediate Post-Op Note Date of Procedure: 02/16/18 Primary Surgeon/Physician: Roberto Holden warp placer: None Pre-Operative Diagnosis: 1. Nasal airway obstruction with difficulty breathing. 2. Recurrent internal nasal valve vestibular stenosis. 3. Nasal septal perforation. 4. Right orbital floor blowout fracture repair, sequela. 5. Smoker. Post-Operative Diagnosis: Same. Surgery/Procedure Performed:: 1. Repair internal nasal vestibular stenosis with placement bilateral cartilage marketing services manager grafts from the right ear. 2. Septal dermatoplasty reconstruction with placement dorsal cartilage strut graft from the left ear and placement PDS plate graft. Description of Surgical Findings:: 42 year old woman comes in with complaints of difficulty breathing from the left side of her nose. She initially had a right orbital floor blowout fracture that was repaired in 11/12. 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 On 04/28/17, she underwent septoplasty with submucous resection and repair of internal nasal vestibular stenosis with placement of bilateral cartilage marketing services manager 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 Postop she did well initially until recently when she started developing breathing difficulties from the left side of her nose. She denies any trauma. She denies any epistaxis, discharge, crusting, dryness, or whistling. She has some intermittent discomfort. She goes to the pain center for low back pain and she gets Neurontin from their office. She states that when she pulls on her cheeks that spreads the nose a little bit and she is able to breathe a little easier. She has no visual complaints. When I saw her in October, I noted a nasal septal perforation which is contributing to her symptomatology. A CT was done on 11/26/17 which noted the nasal septal perforation. The patient's Nicotine level was highly positive. The patient stated that she could not stop smoking. Therefore, I will be conservative with my surgery today because of the risk of suboptimal healing secondary to the effects of smoking. I was contemplating the use of FAMM flaps to repair the septal perforation. However I would prefer to wait until she stops smoking before proceeding with this type of flap, and the same reasoning goes with local mucosal flaps. I may use a nasal septal button prosthesis temporarily until she is able to stop smoking. Patient voices understanding and wishes to proceed and realizes that I may be limited in what I can accomplish today. Today the patient underwent repair internal nasal vestibular stenosis with placement bilateral cartilage marketing services manager grafts from the right ear and septal dermatoplasty reconstruction with placement dorsal cartilage strut graft from the left ear and placement PDS plate graft. IV Fluids - 2800 ml. Urine Output - 550 ml. I used Ethicon PDS Flexible Plate Graft, 0.15 mm thick, 5 x 4 cm. Lot Number - [id number]. Expiration - February 26, 2023. Estimated Blood Loss: 150 ml. Specimen's removed: None. Drains: None. Type of Anesthesia:: General - Admit VTE Documentation VTE Present on Admission: No VTE Mechan Device Prophylaxis: SCD's VTE Pharm Prophylaxis ordered?: Yes
--- NOTE | 2018-02-16 16:30 | OP.PN_ITS ---
Immediate Post-Op Note Date of Procedure: 02/16/18 Primary Surgeon/Physician: Roberto Holden diesel mechanic construction: None Pre-Operative Diagnosis: 1. Nasal airway obstruction with difficulty breathing. 2. Recurrent internal nasal valve vestibular stenosis. 3. Nasal septal perforation. 4. Right orbital floor blowout fracture repair, sequela. 5. Smoker. Post-Operative Diagnosis: Same. Surgery/Procedure Performed:: 1. Repair internal nasal vestibular stenosis with placement bilateral cartilage clinical consultant grafts from the right ear. 2. Septal dermatoplasty reconstruction with placement dorsal cartilage strut graft from th e left ear and placement PDS plate graft. Description of Surgical Findings:: 42 year old woman comes in with complaints of difficulty breathing from the left side of her nose. She initially had a right orbital floor blowout fracture that was repaired in 11/12. 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 On 04/28/17, she underwent septoplasty with submucous resection and repair of internal nasal vestibular stenosis with placement of bilateral cartilage clinical consultant 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 Postop she did well initially until recently when she started developing breathing difficulties from the left side of her nose. She denies any trauma. She denies any epistaxis, discharge, crusting, dryness, or whistling. She has some intermittent discomfort. She goes to the pain center for low back pain and she gets Neurontin from their office. She states that when she pulls on her cheeks that spreads the nose a little bit and she is able to breathe a little easier. She has no visual complaints. When I saw her in October, I noted a nasal septal perforation which is contributing to her symptomatology. A CT was done on 11/26/17 which noted the nasal septal perforation. The patient's Nicotine level was highly positive. The patient stated that she could not stop smoking. Therefore, I will be conservative with my surgery today because of the risk of suboptimal healing secondary to the effects of smoking. I was contemplating the use of FAMM flaps to repair the septal perforation. However I would prefer to wait until she stops smoking before proceeding with this type of flap, and the same reasoning goes with local mucosal flaps. I may use a nasal septal button prosthesis temporarily until she is able to stop smoking. Patient voices understanding and wishes to proceed and realizes that I may be limited in what I can accomplish today. Today the patient underwent repair internal nasal vestibular stenosis with placement bilateral cartilage clinical consultant grafts from the right ear and septal dermatoplasty reconstruction with placement dorsal cartilage strut graft from the left ear and placement PDS plate graft. IV Fluids - 2800 ml. Urine Output - 550 ml. I used Ethicon PDS Flexible Plate Graft, 0.15 mm thick, 5 x 4 cm. Lot Number - [id number]. Expiration - February 26, 2023. Estimated Blood Loss: 150 ml. Specimen's removed: None. Drains: None. Type of Anesthesia:: General - Admit VTE Documentation VTE Present on Admission: No VTE Mechan Device Prophylaxis: SCD's VTE Pharm Prophylaxis ordered?: Yes
[2018-02-16] MEDS: Lactated Ringers 1,000 ML 60 ML IV (18:35)
[2018-02-16] MEDS: HYDROmorphone 0.5 MG/0.5 ML SYRINGE IV (18:36)
[2018-02-16] MEDS: 0.9% NaCl Peripheral Flush Adult/Peds IV (18:36)
--- NOTE | 2018-02-16 18:55 | PCM.CONS.GEN ---
Problem List (1) Nasal septal perforation Status: Chronic (2) Contusion of right eyelid and periocular area, sequela Status: Chronic Comment: right supra-orbital nerve and right supra-trochlear nerve from ophthalmic branch of trigeminal cranial nerve V (3) Fracture of orbital floor, right side, sequela Status: Chronic (4) Airway obstruction, anatomic Status: Chronic (5) Allergic rhinitis Status: Chronic Qualifiers: Allergic rhinitis trigger: unspecified Allergic rhinitis seasonality: unspecified seasonality Qualified Code(s): J30.9 - Allergic rhinitis, unspecified (6) Asthma Status: Chronic Qualifiers: Asthma severity: unspecified severity Asthma persistence: unspecified Asthma complication type: unspecified Qualified Code(s): J45.909 - Unspecified asthma, uncomplicated (7) Diabetes mellitus, type II Status: Chronic Qualifiers: Diabetes mellitus nursing home insulin use: 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 Diabetes mellitus complication status: with unspecified complications Qualified Code(s): E11.8 - Type 2 diabetes mellitus with unspecified complications (8) Migraine Status: Chronic Qualifiers: Migraine type: unspecified Status migrainosus presence: without status migrainosus Intractability: not intractable Qualified Code(s): G43.909 - Migraine, unspecified, not intractable, without status migrainosus (9) Anxiety and depression Status: Chronic (10) Rheumatoid arthritis Status: Chronic Qualifiers: Rheumatoid arthritis location: unspecified site Rheumatoid factor presence: unspecified presence Qualified Code(s): M06.9 - Rheumatoid arthritis, unspecified Reason for Consult Date of Consultation: 02/16/18 Reason for Consultation: Postoperative medical management. History of Present Illness: The patient is a 42 year old F with past medical history as mentioned above underwent elective repair of the internal nasal vestibular stenosis with placement of bilateral cartilage pastry mixer graft from the right ear, septal dermoplasty reconstruction with placement of dorsal cartilage graft from the left ear and I am seeing this patient in consultation for postoperative medical management. This patient has a history of facial trauma with blowout fracture of the right orbital floor and perforation of the nasal septum and she underwent repair on October,. On March,, she underwent septoplasty with repair of the internal nasal vestibular stenosis with placement of bilateral cartilage pastry mixer grafts from the nasal symptoms. Today, she underwent reconstructive surgery with repair of the internal nasal vestibular stenosis with placement of bilateral cartilage pastry mixer grafts and septal dermoplasty and this was done for nasal airway obstruction with difficulty breathing and nasal septum perforation as well as sequelae of right orbital floor blowout fracture. At this time, she rated her facial pain as 8 out of 10 in severity. She received pain medication and it is helping. She denies chest pain or shortness of breath. Denied abdominal pain, nausea or vomiting. She has a history of type 2 diabetes mellitus and she has been on insulin and metformin, blood sugar has been under fair control and her most recent hemoglobin A1c was 7.3% 1-week ago. She has a history of depression and anxiety and she has been on Wellbutrin, Lexapro and Mirapex and she has been stable without suicidal or homicidal intentions or ideations. She has a history of bronchial asthma and she has been on pro-air and her asthma has been under control. At this time, her vital signs are stable. Preoperative routine blood work that was done on February 10, totality reviewed and was unremarkable. EKG done today and reveals normal sinus rhythm, normal MI interval, normal QRS and no acute ischemic changes. Past Medical History Past Medical History (Chronic Problems): Chronic Problems (This Medical Record has been edited. Action required.) Nasal septal perforation (Chronic) Contusion of right eyelid and periocular area, sequela (Chronic) right supra-orbital nerve and right supra-trochlear nerve from ophthalmic branch of trigeminal cranial nerve V Trigeminal neuritis (Chronic) right supra-orbital nerve and right supra-trochlear nerve from ophthalmic branch of trigeminal cranial nerve V Fracture of orbital floor, right side, sequela (Chronic) Airway obstruction, anatomic (Chronic) Other specified disorders of nose and nasal sinuses (Chronic) internal nasal valve vestibular stenosis Deviated nasal septum (Chronic) Allergic rhinitis (Chronic) Asthma (Chronic) Diabetes mellitus, type II (Chronic) Migraine (Chronic) Anxiety and depression (Chronic) Rheumatoid arthritis (Chronic) Overweight (BMI 25.0-29.9) (Chronic) Medical History: Medical History (This Medical Record has been edited. Action required.) Acid reflux disease K21.9 Anxiety F41.9 Arthritis M19.90 Asthma J45.909 Back problem M53.9 Bladder infection N30.90 Chronic headaches R51 Diabetes E11.9 Fracture of orbital floor, blow-out, right, closed S02.31XA Gallstones K80.20 Hearing problem H91.90 Rheumatoid arteritis I00 Seasonal allergies J30.2 Vision problems H54.7 Allergies bee venom protein (honey bee) Allergy (Verified 02/16/18 07:58) Angioedema mold Allergy (Verified 02/16/18 07:58) Itching naproxen Allergy (Verified 02/16/18 07:58) Unknown venom-honey bee [bee venom (honey bee)] Allergy (Verified 02/16/18 07:58) Swelling amoxicillin Adverse Reaction (Verified 02/16/18 07:58) Upset Stomach guaifenesin [From Robitussin] Adverse Reaction (Verified 02/16/18 07:58) Nausea Home Medications: Ambulatory Orders Medication Instructions Recorded Ranitidine [Zantac] 150 mg PO BID PRN 12/30/13 Epinephrine [Epi Pen] 0.3 mg IM X1 PRN 10/31/15 Escitalopram Oxalate [Lexapro] 20 mg PO DAILY 11/24/15 DiphenhydrAMINE [Benadryl] 25 mg PO TID PRN PRN #20 cap 02/24/16 Albuterol Inhaler [Ventolin Hfa] 1 - 2 puff INHALATION Q4H PRN PRN 06/13/16 Ibuprofen [Motrin] 800 mg PO TID PRN PRN #20 tab 07/20/16 Gabapentin [Neurontin] 400 mg PO TID 07/25/16 Albuterol Aerosols [Ventolin 2.5 mg INHALATION Q4H PRN PRN #30 08/05/16 Aerosols] vial Insulin Aspart [Novolog Flexpen] See Protocol SC ACHS #1 flexpen 04/30/17 Atorvastatin Calcium [Lipitor] 10 mg PO QHS 10/10/17 Cetirizine HCl [Zyrtec] 10 mg PO DAILY 10/10/17 Insulin Detemir [Levemir FlexPen] 27 units SC QHS 10/10/17 Pramipexole Di-HCl [Mirapex] 0.125 mg PO QHS 10/10/17 Acetaminophen [Tylenol Arthritis] 650 mg PO Q8H PRN PRN 02/09/18 Diclofenac Sodium [Voltaren] 0 gm TOPICAL PRN PRN 02/09/18 Docusate Sodium [Colace] 100 mg PO PRN PRN 02/09/18 Hydrochlorothiazide 12.5 mg PO DAILY 02/09/18 Loperamide HCl [Imodium A-D] 2 mg PO PRN PRN 02/09/18 Metformin HCl [Glucophage] 500 mg PO BIDCM 02/09/18 Multivitamin [Multiple Vitamins] 1 each PO BID 02/09/18 Sumatriptan Succinate [Imitrex] 50 mg PO .X1 PRN PRN 02/09/18 buPROPion tablets [Wellbutrin 0.5 tab PO BID 02/09/18 tablets] Surgical History: Surgical History (This Medical Record has been edited. Action required.) Closed fracture of right orbital floor S02.31XA OPEN REDUCTION RIGHT ORBITAL FLOOR BLOWOUT FRACTURE USING COMBINED APPROACH ( PERIORBITAL AND TRANSANTRAL ) WITH TITANIUM MESH RECONSTRUCTION 11/02/2015 H/O section Z98.891 3 SECTIONS History of cholecystectomy Z98.890, Z90.49 History of nasal septoplasty Z98.890 SEPTOPLASTY WITH SUBMUCOUS RESECTION REPAIR INTERNAL NASAL VESTIBULAR STENOSIS WITH PLACEMENT OF CARTILAGE JAVA J2EE ARCHITECT GRAFT 04/21/2017 Surgical History: cholecystectomy, - - Septoplasty with submucous resection, repair of internal nasal vestibular stenosis with placement of bilateral cartilage pastry mixer grafts from the nasal septum, cholecystectomy, 3 and 3 C-sections, open reduction right orbital floor blowout fracture using combined approach with periorbital and transantral with titanium placement, mesh reconstruction. 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 Action required.) Unknown No problems noted. History Items: - - Family history is unknown as she is adopted. Paternal Family History: Family History (This Medical Record has been edited. Action required.) Unknown No problems noted. History Items: - - Family history is unknown as she is adopted. Review of Systems Constitutional: Denies: Anorexia, Chills, Fever, Weakness Eyes: Denies: Blurred vision, Conjunctivae Inflammation, Double vision, Drainage, Redness HEENT: Reports: Ear Pain. Denies: Difficulty Hearing, Eye Pain, Nasal Congestion, Sore Throat Cardiovascular: Denies: Chest Pain, Chest Pressure, Chest Tightness, Heaviness, Light Headedness, Palpitations, Syncope Respiratory: Denies: Cough, Pleuritic Pain, Shortness of Breath, Shortness of breath at rest, Sputum production, Wheezing Gastrointestinal: Denies: Abdominal Pain, Constipation, Diarrhea, Nausea, Vomiting Genitourinary: Denies: Dysuria, Frequency, Hematuria Musculoskeletal: Denies: Arm Pain, Back Pain, Foot Pain Skin: Denies: Dryness, Rash Neurological: Denies: Balance problems, Double vision, Change in Speech, Slurred speech, Confusion, Headaches, Incoordination, Numbness Psychiatric: Reports: Anxiety, Depression Endocrine: Denies: Change in Body Habitus, Polydipsia - Physical Exam General: Alert, Oriented x3, Cooperative, - - She is in moderate pain. HEENT: Atraumatic, PERRLA, EOMI, Normocephalic, - - No cyst dressed. She has surgical sutures on both ears. Oral: Moist Mucosa, No Gingival or Mucosal Lesions/ Ulcerations Neck: Supple, No JVD, Negative Carotid Bruits, Trachea Midline, Thyroid Normal Size and Texture Lungs: Clear to auscultation, No rhonchi, No wheeze, No rales, Diminished Cardiovascular: Regular rate, Regular Rhythm, Normal S1, Normal S2, PMI Normal Abdomen: Bowel Sounds Present, Soft, Non Tender, Non-Distended, No Hepato-splenomegaly Extremities: No clubbing, No cyanosis, No edema Skin: No rashes, No breakdown Lymphatic: No Cervical, Supraclavicular, or Inguinal Adenopathy Neurological: Cranial nerves II-XII grossly intact, Motor Exam 5/5 strength throughout Psych/Mental Status: Normal Affect, Appropriate, Alert and oriented to time, place, person, mood and affect Vital Signs Temp Pulse Resp BP Pulse Ox 99.5 F H 97 18 125/71 H 94 02/16/18 17:56 02/16/18 17:56 02/16/18 17:56 02/16/18 17:56 02/16/18 17:56 Oxygen Flow Rate (L/min) 3 Oxygen Delivery Method Room Air Weight: 147 lb 11.355 oz Body Mass Index (BMI) 27.8 Finger Stick Blood Glucose 351 Intake and Output for Last 24 Hours 02/14/18 02/15/18 02/16/18 23:59 23:59 23:59 Intake Total 2860 / 2860 Output Total 660 / 660 Balance 2200 / 2200 Laboratory Tests Past 24 Hrs 02/16/18 08:30 Urine Cotinine Screen Positive H POC Glucose 02/16/18 08:05 POC Glucose 169 H Assessment/Plan All Active Problems (This Medical Record has been edited. Action required.) Orbital floor (blow-out) closed fracture (Resolved) This is a 42 years old female patient underwent elective repair of internal nasal fistula stenosis with placement of bilateral cartilage pastry mixer graft from both ears with dermoplasty reconstruction for nasal airway obstruction and difficulty breathing, nasal septal perforation and sequelae of right orbital floor blowout fracture and I am seeing this patient in consultation for postoperative medical management. #1 status post repair of anterior nasal vestibular stenosis with placement of bilateral cartilage pastry mixer grafts, septal mammoplasty: This was done for nasal obstruction with difficulty breathing, recurrent anterior nasal vestibular stenosis: Postoperative day 0. She is on IV clindamycin for perioperative prophylaxis. Her vital signs are stable. Preoperative routine blood work and EKG reviewed, unremarkable. Dr. Holden is managing. #2 type 2 diabetes mellitus: Blood sugars seem to be under fair control. Hemoglobin A1c was 7.31-week ago. Plan: Continue home doses of Lantus insulin, continue metformin, start insulin sliding scale, Accu-Cheks. #3 bronchial asthma: Clinically stable, pulse ox is maintained on room air. She is on albuterol as needed. #4 anxiety/depression: Continue Wellbutrin, Lexapro and Mirapex. #5 rheumatoid arthritis: She is not on any long-term treatment. At this time, she is on IV steroids. #6 hyperlipidemia: Continue statins. #7 migraine headaches: Stable, continue Imitrex as needed. #8 DVT prophylaxis: Subcu Lovenox. This note was generated with [employer] dictation software. It may contain incorrect words, spelling, and punctuation that were not noted in checking the note before signing. Code Visit Inpatient E&M: 78482 Init Hosp L2
--- NOTE | 2018-02-16 19:05 | PCM.OPRPT ---
Report of Operation Date of Procedure: 02/16/18 Pre-Operative Diagnosis: 1. Nasal airway obstruction with difficulty breathing. 2. Recurrent internal nasal valve vestibular stenosis. 3. Nasal septal perforation. 4. Right orbital floor blowout fracture repair, sequela. 5. Smoker. Post-Operative Diagnosis: Same. Surgery/Procedure Performed:: 1. Repair internal nasal vestibular stenosis with placement bilateral cartilage [employer] grafts from the right ear. 2. Septal dermatoplasty reconstruction with placement dorsal cartilage strut graft from the left ear and placement PDS plate graft. Description of Surgical Findings:: 42 year old woman comes in with complaints of difficulty breathing from the left side of her nose. She initially had a right orbital floor blowout fracture that was repaired in 11/12. 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 On 04/28/17, she underwent septoplasty with submucous resection and repair of internal nasal vestibular stenosis with placement of bilateral cartilage [employer] 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 Postop she did well initially until recently when she started developing breathing difficulties from the left side of her nose. She denies any trauma. She denies any epistaxis, discharge, crusting, dryness, or whistling. She has some intermittent discomfort. She goes to the pain center for low back pain and she gets Neurontin from their office. She states that when she pulls on her cheeks that spreads the nose a little bit and she is able to breathe a little easier. She has no visual complaints. When I saw her in October, I noted a nasal septal perforation which is contributing to her symptomatology. A CT was done on 11/26/17 which noted the nasal septal perforation. Patient was informed of the risks and complications of the procedure including alternatives to surgery. These were discussed with the patient personally. Patient voices understanding and wishes to proceed. Some of the risks and complications were included in a form from the [employer]. Encouraged patient to stop smoking as it may have deleterious effects on wound healing. The patient's Nicotine level was highly positive. The patient stated that she could not stop smoking. Therefore, I will be conservative with my surgery today because of the risk of suboptimal healing secondary to the effects of smoking. I was contemplating the use of FAMM flaps to repair the septal perforation. However I would prefer to wait until she stops smoking before proceeding with this type of flap, and the same reasoning goes with local mucosal flaps. I may use a nasal septal button prosthesis temporarily until she is able to stop smoking. Patient voices understanding and wishes to proceed and realizes that I may be limited in what I can accomplish today. IV Fluids - 2800 ml. Urine Output - 550 ml. I used Ethicon PDS Flexible Plate Graft, 0.15 mm thick, 5 x 4 cm. Lot Number - [id number]. Expiration - February 26, 2023. parts counterman: None Type of Anesthesia:: General Specimen's removed: None. Drains: None. Estimated Blood Loss (mL): 150 ml. Fluids Replaced: 3350 ml (IV Fluids 2800 ml, Urine Output 550 ml). Description of Procedure: The patient was taken to the operating room and in the supine position, she was placed under general anesthesia and her face was prepped and draped in the usual fashion. SCDs were placed for DVT prophylaxis. Perioperative antibiotics were given intravenously. A francois catheter was placed. Procedure was performed under loupe magnification and headlight illumination. I then made a stair-step marking on the proximal portion of the columella through the previous scar after infiltrating with Xylocaine and epinephrine. I also infiltrated the nasal septum with Xylocaine and epinephrine. I then placed Teja-Synephrine on cottonoid pledgets into both nasal passages to help with vasoconstriction. I used 4 cottonoid pledgets for each nostril. After waiting for 10 minutes for the anesthetic to take effect, the cottonoid pledgets were then removed and there were 4 removed from each nasal passage. I then made a stair-step incision in the columella down through the subcutaneous tissue until the medial crura of the lower lateral cartilage was seen. I then dissected up toward the middle crura. I then made an infracartilaginous incision into both nasal passages around the inferior aspect of the lower lateral cartilages, and I was then able to free up the dorsal nasal skin with an open rhinoplasty approach. It was tedious dissection from previous surgical scarring. I dissected the lower lateral cartilage away from the soft tissue until I got access to the septum as well as the upper lateral cartilages. The previous cartilage [employer] graft was intact on the right but barely present on the left. This could explain some of her breathing problems. I suspect suboptimal healing with cartilage absorption from inadequate local blood supply from her history of smoking. The upper lateral cartilages were distorted at the past procedure and were in better position today. I then dissected some of the mucoperichondrium off the septum to create a pocket for additional cartilage [employer] grafts. It was noted that the dorsal cartilage strut of the septum was weakened possibly from the effects of the septal perforation but once again from the effects of her smoking. I needed to reconstruct the dorsal cartilaginous strut of the septum. The proximal portion was intact. The caudal septal strut was intact. I removed the previous cartilage [employer] graft on the right to get exposure for the septal repair. Ideally a rib graft would be used for this purpose. However at our [facility] there is no Thoracic Surgeon available in case there are bleeding issues with obtaining the rib graft. Therefore will proceed with obtaining a cartilage graft from the left ear today. In the future if the patient still has healing issues, then she would need to be evaluated at a tertiary center where Thoracic Surgery is available in order to have a rib graft done. The patient has a small ear, so I made an incision on the posterior aspect of the left ear down to the cartilage. A rectangular piece of cartilage was harvested from the jean pierre. It measured 2 x 1 cm. It was placed in a blood soaked sponge. Hemostasis was obtained with electrocautery. The incision was closed with 5-0 Monocryl vertical mattress interrupted sutures. Antibiotic ointment was applied to the anterior and posterior aspect of the ear followed by moistened cotton ball and secured with 3-0 Nylon suture to minimize hematoma. I used the ear cartilage as a dorsal strut graft to reconstruct the dorsal septum. It was secured to the proximal portion of the dorsal septum with 5-0 VIcryl horizontal mattress interrupted sutures and to the caudal septum with 5-0 Vicryl horizontal mattress interrupted sutures. I re-enforced the cartilage graft with a piece of PDS plate graft and secured it to the cartilage graft repair with 6-0 PDS interrupted sutures. Good septal stability was noted. The addition of cartilage [employer] grafts will also further stabilize the septal reconstruction as well. These cartilage [employer] grafts were obtained from the right ear. Once again, I made an incision on the posterior aspect of the right ear down to the cartilage. A rectangular piece of cartilage was harvested from the jean pierre. It measured 2 x 1 cm. It was placed in a blood soaked sponge. Hemostasis was obtained with electrocautery. The incision was closed with 5-0 Monocryl vertical mattress interrupted sutures. Antibiotic ointment was applied to the anterior and posterior aspect of the ear followed by moistened cotton ball and secured with 3-0 Nylon suture to minimize hematoma. I split the cartilage in half to be used bilaterally. The cartilage [employer] grafts were secured with 5-0 Vicryl horizontal mattress sutures. I then stabilized the caudal septum on the midline by securing the medial crura of the lower lateral cartilages to the caudal edge of the nasal septum using 6-0 PDS simple interrupted suture. The lower lateral cartilages were approximated together at the dome level with 6-0 PDS suture. This improved the shape and contour of her nasal tip. I then irrigated out the wounds with saline. I then closed the stair-step incision on the columella using 5-0 Monocryl interrupted sutures for deep dermis and subcutaneous tissue. The skin was approximated using 6-0 Prolene simple interrupted sutures. The infracartilaginous incision was then approximated using 5-0 chromic simple interrupted sutures. I then placed Vaseline nasal packing along with antibiotic ointment into both nasal passages. I first irrigated out both nasal passages for any residual blood. I also suctioned out any residual blood as well. I then placed a dorsal nasal splint for stability for a few days. This was placed on the dorsum of the nose after placing Steri-Strips first on the skin. I then used a 2 x 2 gauze to help absorb any oozing from the nasal passages and packing postoperatively. The patient tolerated the procedure well and will be sent to recovery room in satisfactory condition. I didn't put the nasal septal button prosthesis in to temporarily close the perforation because of the need for the dorsal cartilaginous strut graft reconstruction. I want the septal reconstruction to heal properly before deciding on further operative management for her septal perforation. She will be sent upstairs for surgical observation overnight stay in the hospital. Once she is tolerating po analgesia, she will be sent home on antibiotics and pain medicine. She will follow up in the office next week for removal of the nasal packing, and at that point, she will continue to wear the dorsal nasal splint for 2 weeks all the time and then for an additional 2 weeks just at night. This will be reminded to the patient to take it easy during the initial postoperative period to minimize trauma to the nose to allow proper healing. She will keep her head elevated during the initial postoperative period and be on a lifting restriction. Anticipate she will get some swelling around her eyes and she can apply cold compresses as needed for periorbital swelling. The nasal columellar sutures will be removed in a week or two. Once again it will be reiterated to the patient postoperatively about the importance of not smoking for proper healing. If she has trouble stopping smoking, and if she develops continued issues and goes to a tertiary center for evaluation, they will probably hold off on any complex nasal septal reconstruction in the future until she does stop smoking. Grafts/Implants Used: PDS Plate Graft. - Complications None. - Admit VTE Documentation VTE Present on Admission: No VTE Mechan Device Prophylaxis: SCD's VTE Pharm Prophylaxis ordered?: Yes Code Visit Surgery Charges CPT - 27680 ICD-10 - J98.8, J34.89, R06.00, S02.31xS, F17.200 13952 J98.8, J34.89, R06.00, S02.31xS, F17.200 [id number] J34.89, J98.8, R06.00, S02.31xS, F17.200 15228 J34.89, J98.8, R06.00, S02.31xS, F17.200
--- NOTE | 2018-02-16 19:05 | CON.PCM_ITS ---
Problem List (1) Nasal septal perforation Status: Chronic (2) Contusion of right eyelid and periocular area, sequela Status: Chronic Comment: right supra-orbital nerve and right supra-trochlear nerve from ophthalmic branch of trigeminal cranial nerve V (3) Fracture of orbital floor, right side, sequela Status: Chronic (4) Airway obstruction, anatomic Status: Chronic (5) Allergic rhinitis Status: Chronic Qualifiers: Allergic rhinitis trigger: unspecified Allergic rhinitis seasonality: unspecified seasonality Qualified Code(s): J30.9 - Allergic rhinitis, unspecified (6) Asthma Status: Chronic Qualifiers: Asthma severity: unspecified severity Asthma persistence: unspecified Asthma complication type: unspecified Qualified Code(s): J45.909 - Unspecified asthma, uncomplicated (7) Diabetes mellitus, type II Status: Chronic Qualifiers: Diabetes mellitus jail insulin use: without rat exterminator use Diabetes mellitus complication status: with unspecified complications Qualified Code(s): E11.8 - Type 2 diabetes mellitus with unspecified complications (8) Migraine Status: Chronic Qualifiers: Migraine type: unspecified Status migrainosus presence: without status migrainosus Intractability: not intractable Qualified Code(s): G43.909 - Migraine, unspecified, not intractable, without status migrainosus (9) Anxiety and depression Status: Chronic (10) Rheumatoid arthritis Status: Chronic Qualifiers: Rheumatoid arthritis location: unspecified site Rheumatoid factor presence: unspecified presence Qualified Code(s): M06.9 - Rheumatoid arthritis, unspecified Reason for Consult Date of Consultation: 02/16/18 Reason for Consultation: Postoperative medical management. 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 This patient has a history of facial trauma with blowout fracture of the right orbital floor and perforation of the nasal septum and she underwent repair on October,. On March,, she underwent septoplasty with repair of the internal nasal vestibular stenosis with placement of bilateral cartilage diagnostic technologist grafts from the nasal symptoms. Today, she underwent reconstructive surgery with repair of the internal nasal vestibular stenosis with placement of bilateral cartilage diagnostic technologist grafts and septal dermoplasty and this was done for nasal airway obstruction with difficulty breathing and nasal septum perforation as well as sequelae of right orbital floor blowout fracture. At this time, she rated her facial pain as 8 out of 10 in severity. She received pain medication and it is helping. She denies chest pain or shortness of breath. Denied abdominal pain, nausea or vomiting. She has a history of type 2 diabetes mellitus and she has been on insulin and metformin, blood sugar has been under fair control and her most recent hemoglobin A1c was 7.3% 1-week ago. She has a history of depression and anxiety and she has been on Wellbutrin, Lexapro and Mirapex and she has been stable without suicidal or homicidal intentions or ideations. She has a history of bronchial asthma and she has been on pro-air and her asthma has been under control. At this time, her vital signs are stable. Preoperative routine blood work that was done on February 10, totality reviewed and was unremarkable. EKG done today and reveals normal sinus rhythm, normal DC interval, normal QRS and no acute ischemic changes. Past Medical History Past Medical History (Chronic Problems): Chronic Problems (This Medical Record has been edited. Action required.) Nasal septal perforation (Chronic) Contusion of right eyelid and periocular area, sequela (Chronic) right supra-orbital nerve and right supra-trochlear nerve from ophthalmic branch of trigeminal cranial nerve V Trigeminal neuritis (Chronic) right supra-orbital nerve and right supra-trochlear nerve from ophthalmic branch of trigeminal cranial nerve V Fracture of orbital floor, right side, sequela (Chronic) Airway obstruction, anatomic (Chronic) Other specified disorders of nose and nasal sinuses (Chronic) internal nasal valve vestibular stenosis Deviated nasal septum (Chronic) Allergic rhinitis (Chronic) Asthma (Chronic) Diabetes mellitus, type II (Chronic) Migraine (Chronic) Anxiety and depression (Chronic) Rheumatoid arthritis (Chronic) Overweight (BMI 25.0-29.9) (Chronic) Medical History: Medical History (This Medical Record has been edited. Action required.) Acid reflux disease K21.9 Anxiety F41.9 Arthritis M19.90 Asthma J45.909 Back problem M53.9 Bladder infection N30.90 Chronic headaches R51 Diabetes E11.9 Fracture of orbital floor, blow-out, right, closed S02.31XA Gallstones K80.20 Hearing problem H91.90 Rheumatoid arteritis I00 Seasonal allergies J30.2 Vision problems H54.7 Allergies bee venom protein (honey bee) Allergy (Verified 02/16/18 07:58) Angioedema mold Allergy (Verified 02/16/18 07:58) Itching naproxen Allergy (Verified 02/16/18 07:58) Unknown venom-honey bee [bee venom (honey bee)] Allergy (Verified 02/16/18 07:58) Swelling amoxicillin Adverse Reaction (Verified 02/16/18 07:58) Upset Stomach guaifenesin [From Robitussin] Adverse Reaction (Verified 02/16/18 07:58) Nausea Home Medications: Ambulatory Orders Medication Instructions Recorded Ranitidine [Zantac] 150 mg PO BID PRN 12/30/13 Epinephrine [Epi Pen] 0.3 mg IM X1 PRN 10/31/15 Escitalopram Oxalate [Lexapro] 20 mg PO DAILY 11/24/15 DiphenhydrAMINE [Benadryl] 25 mg PO TID PRN PRN #20 cap 02/24/16 Albuterol Inhaler [Ventolin Hfa] 1 - 2 puff INHALATION Q4H PRN PRN 06/13/16 Ibuprofen [Motrin] 800 mg PO TID PRN PRN #20 tab 07/20/16 Gabapentin [Neurontin] 400 mg PO TID 07/25/16 Albuterol Aerosols [Ventolin 2.5 mg INHALATION Q4H PRN PRN #30 08/05/16 Aerosols] vial Insulin Aspart [Novolog Flexpen] See Protocol [place] ACHS #1 flexpen 04/30/17 Atorvastatin Calcium [Lipitor] 10 mg PO QHS 10/10/17 Cetirizine HCl [Zyrtec] 10 mg PO DAILY 10/10/17 Insulin Detemir [Levemir FlexPen] 27 units SC QHS 10/10/17 Pramipexole Di-HCl [Mirapex] 0.125 mg PO QHS 10/10/17 Acetaminophen [Tylenol Arthritis] 650 mg PO Q8H PRN PRN 02/09/18 Diclofenac Sodium [Voltaren] 0 gm TOPICAL PRN PRN 02/09/18 Docusate Sodium [Colace] 100 mg PO PRN PRN 02/09/18 Hydrochlorothiazide 12.5 mg PO DAILY 02/09/18 Loperamide HCl [Imodium A-D] 2 mg PO PRN PRN 02/09/18 Metformin HCl [Glucophage] 500 mg PO BIDCM 02/09/18 Multivitamin [Multiple Vitamins] 1 each PO BID 02/09/18 Sumatriptan Succinate [Imitrex] 50 mg PO .X1 PRN PRN 02/09/18 buPROPion tablets [Wellbutrin 0.5 tab PO BID 02/09/18 tablets] Surgical History: Surgical History (This Medical Record has been edited. Action required.) Closed fracture of right orbital floor S02.31XA OPEN REDUCTION RIGHT ORBITAL FLOOR BLOWOUT FRACTURE USING COMBINED APPROACH ( PERIORBITAL AND TRANSANTRAL ) WITH TITANIUM MESH RECONSTRUCTION 11/02/2015 H/O section Z98.891 3 SECTIONS History of cholecystectomy Z98.890, Z90.49 History of nasal septoplasty Z98.890 SEPTOPLASTY WITH SUBMUCOUS RESECTION REPAIR INTERNAL NASAL VESTIBULAR STENOSIS WITH PLACEMENT OF CARTILAGE FURNACE MAINTENANCE GRAFT 04/21/2017 Surgical History: cholecystectomy, - - Septoplasty with submucous resection, repair of internal nasal vestibular stenosis with placement of bilateral cartilage diagnostic technologist grafts from the nasal septum, cholecystectomy, 3 and 3 C- sections, open reduction right orbital floor blowout fracture using combined approach with periorbital and transantral with titanium placement, mesh reconstruction. 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 Action required.) Unknown No problems noted. History Items: - - Family history is unknown as she is adopted. Paternal Family History: Family History (This Medical Record has been edited. Action required.) Unknown No problems noted. History Items: - - Family history is unknown as she is adopted. Review of Systems Constitutional: Denies: Anorexia, Chills, Fever, Weakness Eyes: Denies: Blurred vision, Conjunctivae Inflammation, Double vision, Drainage, Redness HEENT: Reports: Ear Pain. Denies: Difficulty Hearing, Eye Pain, Nasal Congestion, Sore Throat Cardiovascular: Denies: Chest Pain, Chest Pressure, Chest Tightness, Heaviness, Light Headedness, Palpitations, Syncope Respiratory: Denies: Cough, Pleuritic Pain, Shortness of Breath, Shortness of breath at rest, Sputum production, Wheezing Gastrointestinal: Denies: Abdominal Pain, Constipation, Diarrhea, Nausea, Vomiting Genitourinary: Denies: Dysuria, Frequency, Hematuria Musculoskeletal: Denies: Arm Pain, Back Pain, Foot Pain Skin: Denies: Dryness, Rash Neurological: Denies: Balance problems, Double vision, Change in Speech, Slurred speech, Confusion, Headaches, Incoordination, Numbness Psychiatric: Reports: Anxiety, Depression Endocrine: Denies: Change in Body Habitus, Polydipsia - Physical Exam General: Alert, Oriented x3, Cooperative, - - She is in moderate pain. HEENT: Atraumatic, PERRLA, EOMI, Normocephalic, - - No cyst dressed. She has surgical sutures on both ears. Oral: Moist Mucosa, No Gingival or Mucosal Lesions/ Ulcerations Neck: Supple, No JVD, Negative Carotid Bruits, Trachea Midline, Thyroid Normal Size and Texture Lungs: Clear to auscultation, No rhonchi, No wheeze, No rales, Diminished Cardiovascular: Regular rate, Regular Rhythm, Normal S1, Normal S2, PMI Normal Abdomen: Bowel Sounds Present, Soft, Non Tender, Non-Distended, No Hepato- splenomegaly Extremities: No clubbing, No cyanosis, No edema Skin: No rashes, No breakdown Lymphatic: No Cervical, Supraclavicular, or Inguinal Adenopathy Neurological: Cranial nerves II-XII grossly intact, Motor Exam 5/5 strength throughout Psych/Mental Status: Normal Affect, Appropriate, Alert and oriented to time, place, person, mood and affect Vital Signs Temp Pulse Resp BP Pulse Ox 99.5 F H 97 18 125/71 H 94 02/16/18 17:56 02/16/18 17:56 02/16/18 17:56 02/16/18 17:56 02/16/18 17:56 Oxygen Flow Rate (L/min) 3 Oxygen Delivery Method Room Air Weight: 147 lb 11.355 oz Body Mass Index (BMI) 27.8 Finger Stick Blood Glucose 351 Intake and Output for Last 24 Hours 02/14/18 02/15/18 02/16/18 23:59 23:59 23:59 Intake Total 2860 / 2860 Output Total 660 / 660 Balance 2200 / 2200 Laboratory Tests Past 24 Hrs 02/16/18 08:30 Urine Cotinine Screen Positive H POC Glucose 02/16/18 08:05 POC Glucose 169 H Assessment/Plan All Active Problems (This Medical Record has been edited. Action required.) Orbital floor (blow-out) closed fracture (Resolved) This is a 42 years old female patient underwent elective repair of internal nasal fistula stenosis with placement of bilateral cartilage diagnostic technologist graft from both ears with dermoplasty reconstruction for nasal airway obstruction and difficulty breathing, nasal septal perforation and sequelae of right orbital floor blowout fracture and I am seeing this patient in consultation for postoperative medical management. #1 status post repair of anterior nasal vestibular stenosis with placement of bilateral cartilage diagnostic technologist grafts, septal mammoplasty: This was done for nasal obstruction with difficulty breathing, recurrent anterior nasal vestibular stenosis: Postoperative day 0. She is on IV clindamycin for perioperative prophylaxis. Her vital signs are stable. Preoperative routine blood work and EKG reviewed, unremarkable. Dr. Holden is managing. #2 type 2 diabetes mellitus: Blood sugars seem to be under fair control. Hemoglobin A1c was 7.31-week ago. Plan: Continue home doses of Lantus insulin, continue metformin, start insulin sliding scale, Accu-Cheks. #3 bronchial asthma: Clinically stable, pulse ox is maintained on room air. She is on albuterol as needed. #4 anxiety/depression: Continue Wellbutrin, Lexapro and Mirapex. #5 rheumatoid arthritis: She is not on any long-term treatment. At this time, she is on IV steroids. #6 hyperlipidemia: Continue statins. #7 migraine headaches: Stable, continue Imitrex as needed. #8 DVT prophylaxis: Subcu Lovenox. This note was generated with [employer] dictation software. It may contain incorrect words, spelling, and punctuation that were not noted in checking the note before signing. Code Visit Inpatient E&M: 56002 Init Hosp L2
[2018-02-16 19:18] LABS: Hematocrit 34.7 % (37-47); Hemoglobin 11.3 g/dl (12.0-15.0); Mean Corp Hgb Conc 32.6 g/gl (32-36); Mean Corpuscular Hgb 30.3 pg (27.0-32.0); Mean Platelet Vol. 10.3 fl (6.2-12.0); Platelet Count 251 K/mm3 (150-450); RBC Distribution Width CV 13.5 % (11.6-14.6); Red Blood Count 3.73 M/mm3 (4.2-5.4); White Blood Count 13.1 K/mm3 (4.4-11.0)
[2018-02-16 19:21] LABS: Scan Indicated on CBC? Y/N NO
[2018-02-16 20:01] LABS: Anion Gap 7 (5-15); BUN 7 mg/dL (7-18); BUN/Creat Ratio 9.7 RATIO (10-20); Chloride 106 mmol/L (98-107); Creatinine, Serum 0.72 mg/dL (0.55-1.02); EST Glomerular Filtration Rate 95 mL/min (>60); Est Glom Filt Rate - Afr Amer 115 mL/min (>60); Estimated Creatinine Clearance 77.59 ml/min; Glucose 187 mg/dL (74-106); Potassium 3.6 mmol/L (3.5-5.1); Prealbumin 28.7 mg/dL (20.0-40.0); Sodium Level 139 mmol/L (136-145)
[2018-02-16] MEDS: buPROPion 75 MG Tablet PO (21:59)
[2018-02-16] MEDS: Pramipexole Di-HCl 0.125 MG Tablet PO (21:59)
[2018-02-16] MEDS: Gabapentin 400 MG Capsule PO (21:59)
[2018-02-16] MEDS: Atorvastatin Calcium 10 MG Tablet PO (22:00)
[2018-02-16] MEDS: MethylPREDNISolone 125 MG/2 ML Vial IV (22:00)
[2018-02-16] MEDS: Insulin Lispro 100 UNIT/ML INSULN.PEN SC (22:02)
[2018-02-16] MEDS: oxyCODONE 5 MG Tablet 10 MG PO (22:10)
[2018-02-16 22:15] LABS: Bedside Glucose 171 mg/dL (70-110)
[2018-02-17 03:56] VITALS: BP 110/72; PULSE 56; RESP 16; TEMP 37.2; O2SAT 94
[2018-02-17] MEDS: Enoxaparin 30 MG/0.3 ML Syringe SC (06:23)
[2018-02-17] MEDS: MethylPREDNISolone 125 MG/2 ML Vial IV ×2 (06:23→14:01)
[2018-02-17] MEDS: Insulin Lispro 100 UNIT/ML INSULN.PEN SC ×2 (06:25→11:51)
[2018-02-17 06:55] LABS: Bedside Glucose 276 mg/dL (70-110)
[2018-02-17 07:40] VITALS: O2SAT 95
[2018-02-17 09:30] VITALS: BP 114/77; PULSE 98; RESP 18; TEMP 36.5; O2SAT 95
[2018-02-17] MEDS: Acetaminophen 500 MG Tablet PO (09:37)
[2018-02-17] MEDS: Gabapentin 400 MG Capsule PO ×2 (10:44→14:01)
[2018-02-17] MEDS: Escitalopram Oxalate 20 MG Tablet PO (10:44)
[2018-02-17] MEDS: buPROPion 75 MG Tablet PO (10:45)
[2018-02-17] MEDS: Multivitamins,Therapeutic Tablet 1 TABLET PO (10:45)
[2018-02-17] MEDS: hydroCHLOROthiazide 12.5mg 12.5 MG PO (10:45)
[2018-02-17] MEDS: Loratadine 10 MG Tablet PO (10:45)
[2018-02-17] MEDS: Lactated Ringers 1,000 ML 60 ML IV (10:51)
[2018-02-17 12:00] LABS: Bedside Glucose 305 mg/dL (70-110)
--- NOTE | 2018-02-17 13:10 | PCM.PN.SRG ---
Subjective: Postop #1 Patient is resting comfortably. She is breathing ok. - Physical Exam General: Alert, Oriented x3 HEENT: PERRLA, EOMI Oral: Moist Mucosa Neck: Supple Abdomen: Soft, Non-Distended Skin: Incision - columellar incision dry and intact. no bleeding noted on the nasal packing. Neurological: Cranial nerves II-XII grossly intact Psych/Mental Status: Normal Affect, Appropriate Vital Signs Temp Pulse Resp BP Pulse Ox 97.7 F L 98 18 114/77 95 02/17/18 09:30 02/17/18 09:30 02/17/18 09:30 02/17/18 09:30 02/17/18 09:30 Oxygen Flow Rate (L/min) 3 Oxygen Delivery Method Room Air Weight: 147 lb 11.355 oz Body Mass Index (BMI) 27.8 Finger Stick Blood Glucose 351 Intake and Output for Last 24 Hours 02/15/18 02/16/18 02/17/18 23:59 23:59 23:59 Intake Total 2860 / 2860 1102 / 1102 Output Total 660 / 660 1100 / 1100 Balance 2200 / 2200 2 / 2 Laboratory Tests Past 24 Hrs 02/16/18 02/16/18 18:36 18:36 WBC 13.1 H RBC 3.73 L Hgb 11.3 L Hct 34.7 L MCV 93.0 MCH 30.3 MCHC 32.6 RDW 13.5 RDW Differential 45.0 H Plt Count 251 MPV 10.3 Sodium 139 Potassium 3.6 Chloride 106 Carbon Dioxide 26.0 Anion Gap 7 BUN 7 Creatinine 0.72 Estim Creat Clear Calc 77.59 Est GFR (MDRD) Af Amer 115 Est GFR (MDRD) Non-Af 95 BUN/Creatinine Ratio 9.7 L Glucose 187 H Calcium 8.0 L Prealbumin 28.7 POC Glucose 02/17/18 02/17/18 02/16/18 11:49 06:24 21:56 POC Glucose 305 H 276 H 171 H Medical Necessity - Tobacco Use Smoking Status: Current some day smoker Tobacco Use: Cigarettes, Chew Assessment/Plan All Active Problems (This Medical Record has been edited. Action required.) Orbital floor (blow-out) closed fracture (Resolved) 1. Nasal airway obstruction with difficulty breathing. 2. Recurrent internal nasal valve vestibular stenosis. 3. Nasal septal perforation. 4. Right orbital floor blowout fracture repair, sequela. 5. Smoker. 6. s/p repair internal nasal vestibular stenosis with placement bilateral cartilage tetryl boiling tub operator grafts from the right ear and septal dermatoplasty reconstruction with placement dorsal cartilage graft from the left ear and placement PDS plate graft. Patient is resting comfortably. Tolerating po analgesia. Discharge home today. Keep head elevated. No heavy lifting. Wrote script for Cleocin until nasal packing is removed. Instructed patient to go to ED if fever develops at home. The nasal packing would need to be removed and IV antibiotics given due to risk of toxic shock. Wrote script for Percocet for pain (40 tabs). Wrote script for Phenergan for nausea (30 tabs) and a refill and for Colace for constipation (60 tabs). Followup office one week.
--- NOTE | 2018-02-17 13:23 | PCM.DC ---
You will use the following diet at home:: Calorie/Carbohydrate Controlled (specify 1200, 1400, etc) Discharge Activity: May not drive while taking narcotic pain medications., May Shower - in two days. May shower in (days): 2 May resume sexual activity in: 10-14 days Ice area for (Minutes): 5 - as needed for facial swelling. Weight Bearing Status: Weight bearing as tolerated Lifting Restrictions: 10 lbs. Keep extremity elevated above heart level: - - elevate head. Call your doctor if your incision/area has: Continuous Slow Oozing, Sudden Increased Bleeding, Increased Pain/ Swelling, Increased Redness, Foul Smelling Discharge, Swelling at the incision site Call your doctor if you observe: Fever of 101 or Higher - if fever, go to the ED. The packing will need to be removed and IV antibiotics started., Coldness, Increased Pain, Shortness of breath, Chest pain, Calf discomfort, Uncontrolled pain Suture Line Care: - - apply antibiotic ointment to suture line to columellar area daily. Remove Dressing in (days):: 7 - will remove nasal packing next week. If fever then go to ED for removal of the packing and starting IV antibiotics. Cleanse incision/area with: Soap & Water - may cleanse the incision with soap and water at the time of her shower., - Allergies/Adverse Reactions: Allergies bee venom protein (honey bee) Allergy (Verified 02/16/18 07:58) Angioedema mold Allergy (Verified 02/16/18 07:58) Itching naproxen Allergy (Verified 02/16/18 07:58) Unknown venom-honey bee [bee venom (honey bee)] Allergy (Verified 02/16/18 07:58) Swelling amoxicillin Adverse Reaction (Verified 02/16/18 07:58) Upset Stomach guaifenesin [From Robitussin] Adverse Reaction (Verified 02/16/18 07:58) Nausea Medications to take at Discharge Ranitidine [Zantac] 150 mg PO BID PRN 12/30/13 Epinephrine [Epi Pen] 0.3 mg IM X1 PRN 10/31/15 Escitalopram Oxalate [Lexapro] 20 mg PO DAILY 11/24/15 DiphenhydrAMINE [Benadryl] 25 mg PO TID PRN PRN #20 cap 02/24/16 Albuterol Inhaler [Ventolin Hfa] 1 - 2 puff INHALATION Q4H PRN PRN 06/13/16 Gabapentin [Neurontin] 400 mg PO TID 07/25/16 Albuterol Aerosols [Ventolin Aerosols] 2.5 mg INHALATION Q4H PRN PRN #30 vial 08/05/16 Insulin Aspart [Novolog Flexpen] See Protocol [place] ACHS #1 flexpen 04/30/17 Atorvastatin Calcium [Lipitor] 10 mg PO QHS 10/10/17 Insulin Detemir [Levemir FlexPen] 27 units SC QHS 10/10/17 Pramipexole Di-HCl [Mirapex] 0.125 mg PO QHS 10/10/17 Acetaminophen [Tylenol Arthritis] 650 mg PO Q8H PRN PRN 02/09/18 Diclofenac Sodium [Voltaren] 0 gm TOPICAL PRN PRN 02/09/18 Hydrochlorothiazide 12.5 mg PO DAILY 02/09/18 Loperamide HCl [Imodium A-D] 2 mg PO PRN PRN 02/09/18 Metformin HCl [Glucophage] 500 mg PO BIDCM 02/09/18 Multivitamin [Multiple Vitamins] 1 each PO BID 02/09/18 Sumatriptan Succinate [Imitrex] 50 mg PO .X1 PRN PRN 02/09/18 buPROPion tablets [Wellbutrin tablets] 0.5 tab PO BID 02/09/18 Clindamycin HCl [Cleocin] 300 mg PO TID #30 cap 02/17/18 Docusate Sodium [Colace] 100 mg PO BID PRN PRN #60 cap 02/17/18 Famotidine [Pepcid] 20 mg PO BID PRN PRN tablet 02/17/18 Insulin Lispro [Humalog KwikPen] See Protocol [facility] insuln.pen 02/17/18 Loratadine [Claritin] 10 mg PO DAILY tablet 02/17/18 Oxycodone HCl/Acetaminophen [Percocet 5/325] 1 - 2 tab PO 4X/DAY PRN PRN 5 Days #40 tab 02/17/18 Rizatriptan Benzoate [Maxalt] 10 mg PO X1 PRN tablet 02/17/18 proMETHazine tablet [Phenergan tablet] 25 mg PO 4X/DAY PRN PRN #30 tab 02/17/18 The following prescriptions were given: Docusate Sodium [Colace] 100 mg PO BID PRN PRN #60 cap PRN Reason: Constipation Oxycodone HCl/Acetaminophen [Percocet 5/325] 1 - 2 tab PO 4X/DAY PRN PRN 5 Days #40 tab PRN Reason: Pain proMETHazine tablet [Phenergan tablet] 25 mg PO 4X/DAY PRN PRN #30 tab PRN Reason: NAUSEA/VOMITING Clindamycin HCl [Cleocin] 300 mg PO TID #30 cap Orders to be completed after discharge: Nicotine Screen Blood Time Frame: 02/16/18, Location: Laboratory Primary Care Physician: Timmy Park MD [Primary Care Provider] - Test Results: Test results from this visit will be discussed in further detail at your follow-up appointment, if applicable. Please Follow Up With: Roberto Holden MD When: one week. call [phone] for appt. Proposed Discharge Date: 02/17/18
--- NOTE | 2018-02-17 13:27 | DCINST_ITS ---
You will use the following diet at home:: Calorie/Carbohydrate Controlled (specify 1200, 1400, etc) Discharge Activity: May not drive while taking narcotic pain medications., May Shower - in two days. May shower in (days): 2 May resume sexual activity in: 10-14 days Ice area for (Minutes): 5 - as needed for facial swelling. Weight Bearing Status: Weight bearing as tolerated Lifting Restrictions: 10 lbs. Keep extremity elevated above heart level: - - elevate head. Call your doctor if your incision/area has: Continuous Slow Oozing, Sudden Increased Bleeding, Increased Pain/ Swelling, Increased Redness, Foul Smelling Discharge, Swelling at the incision site Call your doctor if you observe: Fever of 101 or Higher - if fever, go to the ED. The packing will need to be removed and IV antibiotics started., Coldness, Increased Pain, Shortness of breath, Chest pain, Calf discomfort, Uncontrolled pain Suture Line Care: - - apply antibiotic ointment to suture line to columellar area daily. Remove Dressing in (days):: 7 - will remove nasal packing next week. If fever then go to ED for removal of the packing and starting IV antibiotics. Cleanse incision/area with: Soap & Water - may cleanse the incision with soap and water at the time of her shower., - Allergies/Adverse Reactions: Allergies bee venom protein (honey bee) Allergy (Verified 02/16/18 07:58) Angioedema mold Allergy (Verified 02/16/18 07:58) Itching naproxen Allergy (Verified 02/16/18 07:58) Unknown venom-honey bee [bee venom (honey bee)] Allergy (Verified 02/16/18 07:58) Swelling amoxicillin Adverse Reaction (Verified 02/16/18 07:58) Upset Stomach guaifenesin [From Robitussin] Adverse Reaction (Verified 02/16/18 07:58) Nausea Medications to take at Discharge Ranitidine [Zantac] 150 mg PO BID PRN 12/30/13 Epinephrine [Epi Pen] 0.3 mg IM X1 PRN 10/31/15 Escitalopram Oxalate [Lexapro] 20 mg PO DAILY 11/24/15 DiphenhydrAMINE [Benadryl] 25 mg PO TID PRN PRN #20 cap 02/24/16 Albuterol Inhaler [Ventolin Hfa] 1 - 2 puff INHALATION Q4H PRN PRN 06/13/16 Gabapentin [Neurontin] 400 mg PO TID 07/25/16 Albuterol Aerosols [Ventolin Aerosols] 2.5 mg INHALATION Q4H PRN PRN #30 vial 08/05/16 Insulin Aspart [Novolog Flexpen] See Protocol [place] ACHS #1 flexpen 04/30/17 Atorvastatin Calcium [Lipitor] 10 mg PO QHS 10/10/17 Insulin Detemir [Levemir FlexPen] 27 units SC QHS 10/10/17 Pramipexole Di-HCl [Mirapex] 0.125 mg PO QHS 10/10/17 Acetaminophen [Tylenol Arthritis] 650 mg PO Q8H PRN PRN 02/09/18 Diclofenac Sodium [Voltaren] 0 gm TOPICAL PRN PRN 02/09/18 Hydrochlorothiazide 12.5 mg PO DAILY 02/09/18 Loperamide HCl [Imodium A-D] 2 mg PO PRN PRN 02/09/18 Metformin HCl [Glucophage] 500 mg PO BIDCM 02/09/18 Multivitamin [Multiple Vitamins] 1 each PO BID 02/09/18 Sumatriptan Succinate [Imitrex] 50 mg PO .X1 PRN PRN 02/09/18 buPROPion tablets [Wellbutrin tablets] 0.5 tab PO BID 02/09/18 Clindamycin HCl [Cleocin] 300 mg PO TID #30 cap 02/17/18 Docusate Sodium [Colace] 100 mg PO BID PRN PRN #60 cap 02/17/18 Famotidine [Pepcid] 20 mg PO BID PRN PRN tablet 02/17/18 Insulin Lispro [Humalog KwikPen] See Protocol [facility] insuln.pen 02/17/18 Loratadine [Claritin] 10 mg PO DAILY tablet 02/17/18 Oxycodone HCl/Acetaminophen [Percocet 5/325] 1 - 2 tab PO 4X/DAY PRN PRN 5 Days #40 tab 02/17/18 Rizatriptan Benzoate [Maxalt] 10 mg PO X1 PRN tablet 02/17/18 proMETHazine tablet [Phenergan tablet] 25 mg PO 4X/DAY PRN PRN #30 tab 02/17/18 The following prescriptions were given: Docusate Sodium [Colace] 100 mg PO BID PRN PRN #60 cap PRN Reason: Constipation Oxycodone HCl/Acetaminophen [Percocet 5/325] 1 - 2 tab PO 4X/DAY PRN PRN 5 Days #40 tab PRN Reason: Pain proMETHazine tablet [Phenergan tablet] 25 mg PO 4X/DAY PRN PRN #30 tab PRN Reason: NAUSEA/VOMITING Clindamycin HCl [Cleocin] 300 mg PO TID #30 cap Orders to be completed after discharge: Nicotine Screen Blood Time Frame: 02/16/18, Location: Laboratory Primary Care Physician: Timmy Park MD [Primary Care Provider] - Test Results: Test results from this visit will be discussed in further detail at your follow- up appointment, if applicable. Please Follow Up With: Roberto Holden MD When: one week. call [phone] for appt. Proposed Discharge Date: 02/17/18
[2018-02-17 15:10] VITALS: BP 115/55; PULSE 102; RESP 16; TEMP 36.6; O2SAT 94
--- NOTE | 2018-02-17 16:01 | PCM.PN.HOSP ---
Subjective: The patient has dressing on nose and left ear. Dressing is dry. Vitals/I&O's: Vital Signs Temp Pulse Resp BP Pulse Ox 97.7 F L 98 18 114/77 95 02/17/18 09:30 02/17/18 09:30 02/17/18 09:30 02/17/18 09:30 02/17/18 09:30 Oxygen Flow Rate (L/min) 3 Oxygen Delivery Method Room Air Weight: 147 lb 11.355 oz Body Mass Index (BMI) 27.8 Finger Stick Blood Glucose 351 Intake and Output for Last 24 Hours 02/15/18 02/16/18 02/17/18 23:59 23:59 23:59 Intake Total 2860 / 2860 1102 / 1102 Output Total 660 / 660 1100 / 1100 Balance 2200 / 2200 General: Alert, Oriented x3, Cooperative HEENT: Atraumatic, PERRLA, EOMI, Normocephalic, - - Dressing over nostrils nasal septum and left ear. Dry. Neck: Supple, No JVD, Negative Carotid Bruits Lungs: Clear to auscultation, Normal air movement, No rhonchi, No wheeze, No rales Cardiovascular: Regular rate, Regular Rhythm, Normal S1, Normal S2, No murmurs Abdomen: Bowel Sounds Present, Soft, Non Tender, Non-Distended Extremities: No edema, Capillary Refill Less than 3 Seconds Skin: No rashes, No breakdown Musculoskeletal: No Tenderness to Palpation of Joints or Extremities Neurological: Cranial nerves II-XII grossly intact Psych/Mental Status: Normal Affect, Appropriate Laboratory Results 02/16/18 18:36: WBC 13.1 H, RBC 3.73 L, Hgb 11.3 L, Hct 34.7 L, MCV 93.0, MCH 30.3, MCHC 32.6, RDW 13.5, RDW Differential 45.0 H, Plt Count 251, MPV 10.3 02/16/18 18:36: Sodium 139, Potassium 3.6, Chloride 106, Carbon Dioxide 26.0, Anion Gap 7, BUN 7, Creatinine 0.72, Estim Creat Clear Calc 77.59, Est GFR (MDRD) Af Amer 115, Est GFR (MDRD) Non-Af 95, BUN/Creatinine Ratio 9.7 L, Glucose 187 H, Calcium 8.0 L, Prealbumin 28.7 02/16/18 21:56: POC Glucose 171 H 02/17/18 06:24: POC Glucose 276 H 02/17/18 11:49: POC Glucose 305 H Current Medications Acetaminophen (Tylenol) 500 mg PO Q6H PRN PRN PRN Reason: PAIN Last Admin: 02/17/18 09:37 Dose: 500 mg Albuterol Sulfate (Ventolin Aerosols) 2.5 mg INHALATION Q4H PRN PRN PRN Reason: DYSPNEA Atorvastatin Calcium (Lipitor) 10 mg PO QHS [facility] Last Admin: 02/16/18 22:00 Dose: 10 mg Bupropion HCl (Wellbutrin Tablets) 75 mg PO BID [facility] Last Admin: 02/17/18 10:45 Dose: 75 mg Diphenhydramine HCl (Benadryl) 25 mg PO TID PRN PRN PRN Reason: RASH AND ITCHING PRN Docusate Sodium (Colace) 100 mg PO BID PRN PRN PRN Reason: Constipation Enoxaparin Sodium (Lovenox) 30 mg SC DAILY@0600 [facility] Last Admin: 02/17/18 06:23 Dose: 30 mg Escitalopram Oxalate (Lexapro) 20 mg PO DAILY [facility] Last Admin: 02/17/18 10:44 Dose: 20 mg Famotidine (Pepcid) 20 mg PO BID PRN PRN PRN Reason: HEARTBURN Gabapentin (Neurontin) 400 mg PO TIDCM [facility] Last Admin: 02/17/18 14:01 Dose: 400 mg Hydrochlorothiazide (Hydrochlorothiazide) 12.5 mg PO DAILY [facility] Last Admin: 02/17/18 10:45 Dose: 12.5 mg Hydromorphone HCl (Dilaudid Inj) 0.5 mg IV Q4H PRN PRN PRN Reason: SEVERE PAIN (6-10/10) Last Admin: 02/16/18 18:36 Dose: 0.5 mg Clindamycin Phosphate 600 mg/ (Dextrose) 54 mls @ 162 mls/hr IV Q8 [facility] Last Admin: 02/17/18 14:02 Dose: 162 mls/hr Lactated Ringer's () 1,000 mls @ 60 mls/hr IV .[id number] [facility] Last Admin: 02/17/18 10:51 Dose: 60 mls/hr Insulin Glargine (Lantus (Bkc)) 27 units SC QHS [facility] Last Admin: 02/16/18 21:59 Dose: 27 units Insulin Human Lispro (Humalog Kwikpen (Bkc)) 0 unit SC ACHS [facility]; Protocol Last Admin: 02/17/18 11:51 Dose: 3 units Loperamide HCl (Imodium) 2 mg PO PRN PRN PRN Reason: Diarrhea Loratadine (Claritin) 10 mg PO DAILY [facility] Last Admin: 02/17/18 10:45 Dose: 10 mg [facility] Last Admin: 02/17/18 10:45 Dose: 500 mg Multivitamins (Multivitamin) 1 tablet PO DAILYCM@1200 [facility] Last Admin: 02/17/18 10:45 Dose: 1 tablet Nutritional Formula ([place]ood - [place] Flavor) [facility] Last Admin: 02/17/18 10:44 Dose: 1 packet Ondansetron HCl (Zofran) 4 mg IV Q6H PRN PRN PRN Reason: NAUSEA Oxycodone HCl (Oxyir) 10 mg PO Q4H PRN PRN PRN Reason: SEVERE PAIN (6-10/10) Last Admin: 02/16/18 22:10 Dose: 10 mg Pramipexole Dihydrochloride (Mirapex) 0.125 mg PO QHS [facility] Last Admin: 02/16/18 21:59 Dose: 0.125 mg Promethazine HCl (Phenergan Tablet) 25 mg PO Q4H PRN PRN PRN Reason: NAUSEA/VOMITING Rizatriptan Benzoate (Maxalt) 10 mg PO X1 PRN PRN Reason: MIGRAINE SYMPTOMS Sodium Chloride () 5 - 30 ml IV UD PRN PRN Reason: SALINE FLUSH Last Admin: 02/16/18 18:36 Dose: 10 ml Medical Necessity - Tobacco Use Smoking Status: Current some day smoker Tobacco Use: Cigarettes, Chew Assessment/Plan All Active Problems (This Medical Record has been edited. 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 Hospitalist team was consulted for postoperative medical management. #1 status post repair of anterior nasal vestibular stenosis with placement of bilateral cartilage assistant shift supervisor grafts, septal mammoplasty: Postop day 1. This was done for nasal obstruction with difficulty breathing, recurrent anterior nasal vestibular stenosis: She is on IV clindamycin for perioperative prophylaxis. Her vital signs are stable. Preoperative routine blood work and EKG reviewed, unremarkable. Dr. Holden is managing. The patient is being discharged home today on clindamycin. #2 type 2 diabetes mellitus: Blood sugars seem to be under fair control. Hemoglobin A1c was 7.3 1-week ago. Plan: Continue home doses of Lantus insulin, continue metformin, start insulin sliding scale, Accu-Cheks. #3 bronchial asthma: Clinically stable, pulse ox is maintained on room air. She is on albuterol as needed. #4 anxiety/depression: Continue Wellbutrin, Lexapro and Mirapex. #5 rheumatoid arthritis: She is not on any long-term treatment. At this time, she is on IV steroids. #6 hyperlipidemia: Continue statins. #7 migraine headaches: Stable, continue Imitrex as needed. #8 DVT prophylaxis: Subcu Lovenox. Patient discharged home. Discharge medication reconciliation done. Hospitalist will sign off. Code Visit Inpatient E&M: 03443 Subs Hosp L2
--- NOTE | 2018-02-17 16:05 | PN_ITS ---
Subjective: The patient has dressing on nose and left ear. Dressing is dry. Vitals/I&O's: Vital Signs Temp Pulse Resp BP Pulse Ox 97.7 F L 98 18 114/77 95 02/17/18 09:30 02/17/18 09:30 02/17/18 09:30 02/17/18 09:30 02/17/18 09:30 Oxygen Flow Rate (L/min) 3 Oxygen Delivery Method Room Air Weight: 147 lb 11.355 oz Body Mass Index (BMI) 27.8 Finger Stick Blood Glucose 351 Intake and Output for Last 24 Hours 02/15/18 02/16/18 02/17/18 23:59 23:59 23:59 Intake Total 2860 / 2860 1102 / 1102 Output Total 660 / 660 1100 / 1100 Balance 2200 / 2200 General: Alert, Oriented x3, Cooperative HEENT: Atraumatic, PERRLA, EOMI, Normocephalic, - - Dressing over nostrils nasal septum and left ear. Dry. Neck: Supple, No JVD, Negative Carotid Bruits Lungs: Clear to auscultation, Normal air movement, No rhonchi, No wheeze, No rales Cardiovascular: Regular rate, Regular Rhythm, Normal S1, Normal S2, No murmurs Abdomen: Bowel Sounds Present, Soft, Non Tender, Non-Distended Extremities: No edema, Capillary Refill Less than 3 Seconds Skin: No rashes, No breakdown Musculoskeletal: No Tenderness to Palpation of Joints or Extremities Neurological: Cranial nerves II-XII grossly intact Psych/Mental Status: Normal Affect, Appropriate Laboratory Results 02/16/18 18:36: WBC 13.1 H, RBC 3.73 L, Hgb 11.3 L, Hct 34.7 L, MCV 93.0, MCH 30.3, MCHC 32.6, RDW 13.5, RDW Differential 45.0 H, Plt Count 251, MPV 10.3 02/16/18 18:36: Sodium 139, Potassium 3.6, Chloride 106, Carbon Dioxide 26.0, Anion Gap 7, BUN 7, Creatinine 0.72, Estim Creat Clear Calc 77.59, Est GFR (MDRD) Af Amer 115, Est GFR (MDRD) Non-Af 95, BUN/Creatinine Ratio 9.7 L, Glucose 187 H, Calcium 8.0 L, Prealbumin 28.7 02/16/18 21:56: POC Glucose 171 H 02/17/18 06:24: POC Glucose 276 H 02/17/18 11:49: POC Glucose 305 H Current Medications Acetaminophen (Tylenol) 500 mg PO Q6H PRN PRN PRN Reason: PAIN Last Admin: 02/17/18 09:37 Dose: 500 mg Albuterol Sulfate (Ventolin Aerosols) 2.5 mg INHALATION Q4H PRN PRN PRN Reason: DYSPNEA Atorvastatin Calcium (Lipitor) 10 mg PO QHS [facility] Last Admin: 02/16/18 22:00 Dose: 10 mg Bupropion HCl (Wellbutrin Tablets) 75 mg PO BID [facility] Last Admin: 02/17/18 10:45 Dose: 75 mg Diphenhydramine HCl (Benadryl) 25 mg PO TID PRN PRN PRN Reason: RASH AND ITCHING PRN Docusate Sodium (Colace) 100 mg PO BID PRN PRN PRN Reason: Constipation Enoxaparin Sodium (Lovenox) 30 mg SC DAILY@0600 [facility] Last Admin: 02/17/18 06:23 Dose: 30 mg Escitalopram Oxalate (Lexapro) 20 mg PO DAILY [facility] Last Admin: 02/17/18 10:44 Dose: 20 mg Famotidine (Pepcid) 20 mg PO BID PRN PRN PRN Reason: HEARTBURN Gabapentin (Neurontin) 400 mg PO TIDCM [facility] Last Admin: 02/17/18 14:01 Dose: 400 mg Hydrochlorothiazide (Hydrochlorothiazide) 12.5 mg PO DAILY [facility] Last Admin: 02/17/18 10:45 Dose: 12.5 mg Hydromorphone HCl (Dilaudid Inj) 0.5 mg IV Q4H PRN PRN PRN Reason: SEVERE PAIN (6-10/10) Last Admin: 02/16/18 18:36 Dose: 0.5 mg Clindamycin Phosphate 600 mg/ (Dextrose) 54 mls @ 162 mls/hr IV Q8 [facility] Last Admin: 02/17/18 14:02 Dose: 162 mls/hr Lactated Ringer's () 1,000 mls @ 60 mls/hr IV .[id number] [facility] Last Admin: 02/17/18 10:51 Dose: 60 mls/hr Insulin Glargine (Lantus (Bkc)) 27 units SC QHS [facility] Last Admin: 02/16/18 21:59 Dose: 27 units Insulin Human Lispro (Humalog Kwikpen (Bkc)) 0 unit SC ACHS [facility]; Protocol Last Admin: 02/17/18 11:51 Dose: 3 units Loperamide HCl (Imodium) 2 mg PO PRN PRN PRN Reason: Diarrhea Loratadine (Claritin) 10 mg PO DAILY [facility] Last Admin: 02/17/18 10:45 Dose: 10 mg [facility] Last Admin: 02/17/18 10:45 Dose: 500 mg Multivitamins (Multivitamin) 1 tablet PO DAILYCM@1200 [facility] Last Admin: 02/17/18 10:45 Dose: 1 tablet Nutritional Formula (Hood - [place] Flavor) [facility] Last Admin: 02/17/18 10:44 Dose: 1 packet Ondansetron HCl (Zofran) 4 mg IV Q6H PRN PRN PRN Reason: NAUSEA Oxycodone HCl (Oxyir) 10 mg PO Q4H PRN PRN PRN Reason: SEVERE PAIN (6-10/10) Last Admin: 02/16/18 22:10 Dose: 10 mg Pramipexole Dihydrochloride (Mirapex) 0.125 mg PO QHS [facility] Last Admin: 02/16/18 21:59 Dose: 0.125 mg Promethazine HCl (Phenergan Tablet) 25 mg PO Q4H PRN PRN PRN Reason: NAUSEA/VOMITING Rizatriptan Benzoate (Maxalt) 10 mg PO X1 PRN PRN Reason: MIGRAINE SYMPTOMS Sodium Chloride () 5 - 30 ml IV UD PRN PRN Reason: SALINE FLUSH Last Admin: 02/16/18 18:36 Dose: 10 ml Medical Necessity - Tobacco Use Smoking Status: Current some day smoker Tobacco Use: Cigarettes, Chew Assessment/Plan All Active Problems (This Medical Record has been edited. 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 Hospitalist team was consulted for postoperative medical management. #1 status post repair of anterior nasal vestibular stenosis with placement of bilateral cartilage dental patient coordinator grafts, septal mammoplasty: Postop day 1. This was done for nasal obstruction with difficulty breathing, recurrent anterior nasal vestibular stenosis: She is on IV clindamycin for perioperative prophylaxis. Her vital signs are stable. Preoperative routine blood work and EKG reviewed, unremarkable. Dr. Holden is managing. The patient is being discharged home today on clindamycin. #2 type 2 diabetes mellitus: Blood sugars seem to be under fair control. Hemoglobin A1c was 7.3 1-week ago. Plan: Continue home doses of Lantus insulin, continue metformin, start insulin sliding scale, Accu-Cheks. #3 bronchial asthma: Clinically stable, pulse ox is maintained on room air. She is on albuterol as needed. #4 anxiety/depression: Continue Wellbutrin, Lexapro and Mirapex. #5 rheumatoid arthritis: She is not on any long-term treatment. At this time, she is on IV steroids. #6 hyperlipidemia: Continue statins. #7 migraine headaches: Stable, continue Imitrex as needed. #8 DVT prophylaxis: Subcu Lovenox. Patient discharged home. Discharge medication reconciliation done. Hospitalist will sign off. Code Visit Inpatient E&M: [id number] Subs Hosp L2
--- NOTE | 2018-02-17 19:05 | OP.PCM_ITS ---
Report of Operation Date of Procedure: 02/16/18 Pre-Operative Diagnosis: 1. Nasal airway obstruction with difficulty breathing. 2. Recurrent internal nasal valve vestibular stenosis. 3. Nasal septal perforation. 4. Right orbital floor blowout fracture repair, sequela. 5. Smoker. Post-Operative Diagnosis: Same. Surgery/Procedure Performed:: 1. Repair internal nasal vestibular stenosis with placement bilateral cartilage unit director grafts from the right ear. 2. Septal dermatoplasty reconstruction with placement dorsal cartilage strut graft from the left ear and placement PDS plate graft. Description of Surgical Findings:: 42 year old woman comes in with complaints of difficulty breathing from the left side of her nose. She initially had a right orbital floor blowout fracture that was repaired in 11/12. 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 On 04/28/17, she underwent septoplasty with submucous resection and repair of internal nasal vestibular stenosis with placement of bilateral cartilage unit director 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 Postop she did well initially until recently when she started developing breathing difficulties from the left side of her nose. She denies any trauma. She denies any epistaxis, discharge, crusting, dryness, or whistling. She has some intermittent discomfort. She goes to the pain center for low back pain and she gets Neurontin from their office. She states that when she pulls on her cheeks that spreads the nose a little bit and she is able to breathe a little easier. She has no visual complaints. When I saw her in October, I noted a nasal septal perforation which is contributing to her symptomatology. A CT was done on 11/26/17 which noted the nasal septal perforation. Patient was informed of the risks and complications of the procedure including alternatives to surgery. These were discussed with the patient personally. Patient voices understanding and wishes to proceed. Some of the risks and complications were included in a form from the [employer]. Encouraged patient to stop smoking as it may have deleterious effects on wound healing. The patient's Nicotine level was highly positive. The patient stated that she could not stop smoking. Therefore, I will be conservative with my surgery today because of the risk of suboptimal healing secondary to the effects of smoking. I was contemplating the use of FAMM flaps to repair the septal perforation. However I would prefer to wait until she stops smoking before proceeding with t his type of flap, and the same reasoning goes with local mucosal flaps. I may use a nasal septal button prosthesis temporarily until she is able to stop smoking. Patient voices understanding and wishes to proceed and realizes that I may be limited in what I can accomplish today. IV Fluids - 2800 ml. Urine Output - 550 ml. I used Ethicon PDS Flexible Plate Graft, 0.15 mm thick, 5 x 4 cm. Lot Number - [id number]. Expiration - February 26, 2023. plug sorter: None Type of Anesthesia:: General Specimen's removed: None. Drains: None. Estimated Blood Loss (mL): 150 ml. Fluids Replaced: 3350 ml (IV Fluids 2800 ml, Urine Output 550 ml). Description of Procedure: The patient was taken to the operating room and in the supine position, she was placed under general anesthesia and her face was prepped and draped in the usual fashion. SCDs were placed for DVT prophylaxis. Perioperative antibiotics were given intravenously. A francois catheter was placed. Procedure was performed under loupe magnification and headlight illumination. I then made a stair-step marking on the proximal portion of the columella through the previous scar after infiltrating with Xylocaine and epinephrine. I also infiltrated the nasal septum with Xylocaine and epinephrine. I then placed Teja-Synephrine on cottonoid pledgets into both nasal passages to help with vasoconstriction. I used 4 cottonoid pledgets for each nostril. After waiting for 10 minutes for the anesthetic to take effect, the cottonoid pledgets were then removed and there were 4 removed from each nasal passage. I then made a stair-step incision in the columella down through the subcutaneous tissue until the medial crura of the lower lateral cartilage was seen. I then dissected up toward the middle crura. I then made an infracartilaginous incision into both nasal passages around the inferior aspect of the lower lateral cartilages, and I was then able to free up the dorsal nasal skin with an open rhinoplasty approach. It was tedious diss ection from previous surgical scarring. I dissected the lower lateral cartilage away from the soft tissue until I got access to the septum as well as the upper lateral cartilages. The previous cartilage unit director graft was intact on the right but barely present on the left. This could explain some of her breathing problems. I suspect suboptimal healing with cartilage absorption from inadequate local blood supply from her history of smoking. The upper lateral cartilages were distorted at the past procedure and were in better position today. I then dissected some of the mucoperichondrium off the septum to create a pocket for additional cartilage unit director grafts. It was noted that the dorsal cartilage strut of the septum was weakened possibly from the effects of the septal perforation but once again from the effects of her smoking. I needed to reconstruct the dorsal cartilaginous strut of the septum. The proximal portion was intact. The caudal septal strut was intact. I removed the previous cartilage unit director graft on the right to get exposure for the septal repair. Ideally a rib graft would be used for this purpose. However at our [facility] there is no Thoracic Surgeon available in case there are bleeding issues with obtaining the rib graft. Therefore will proceed with obtaining a cartilage graft from the left ear today. In the future if the patient still has healing issues, then she would need to be evaluated at a tertiary center where Thoracic Surgery is available in order to have a rib graft done. The patient has a small ear, so I made an incision on the posterior aspect of the left ear down to the cartilage. A rectangular piece of cartilage was harvested from the jean pierre. It measured 2 x 1 cm. It was placed in a blood soaked sponge. Hemostasis was obtained with electrocautery. The incision was closed with 5-0 Monocryl vertical mattress interrupted sutures. Antibiotic ointment was applied to the anterior and posterior aspect of the ear followed by moistened cotton ball and secured with 3-0 Nylon suture to minimize hematoma. I used the ear cartilage as a dorsal strut graft to reconstruct the dorsal septum. It was secured to the proximal portion of the dorsal septum with 5-0 VIcryl horizontal mattress interrupted sutures and to the caudal septum with 5-0 Vicryl horizontal mattress interrupted sutures. I re-enforced the cartilage graft with a piece of PDS plate graft and secured it to the cartilage graft repair with 6-0 PDS interrupted sutures. Good septal stability was noted. The addition of cartilage unit director grafts will also further stabilize the septal reconstruction as well. These cartilage unit director grafts were obtained from the right ear. Once again, I made an incision on the posterior aspect of the right ear down to the cartilage. A rectangular piece of cartilage was harvested from the jean pierre. It measured 2 x 1 cm. It was placed in a blood soaked sponge. Hemostasis was obtained with electrocautery. The incision was closed with 5-0 Monocryl vertical mattress interrupted sutures. Antibiotic ointment was applied to the anterior and posterior aspect of the ear followed by moistened cotton ball and secured with 3-0 Nylon suture to minimize hematoma. I split the cartilage in half to be used bilaterally. The cartilage unit director grafts were secured with 5-0 Vicryl horizontal mattress sutures. I then stabilized the caudal septum on the midline by securing the medial crura of the lower lateral cartilages to the caudal edge of the nasal septum using 6-0 PDS simple interrupted suture. The lower lateral cartilages were approximated together at the dome level with 6-0 PDS suture. This improved the shape and contour of her nasal tip. I then irrigated out the wounds with saline. I then closed the stair-step incision on the columella using 5-0 Monocryl interrupted sutures for deep dermis and subcutaneous tissue. The skin was approximated using 6-0 Prolene simple interrupted sutures. The infracartilaginous incision was then approximated using 5-0 chromic simple interrupted sutures. I then placed Vaseline nasal packing along with antibiotic ointment into both nasal passages. I first irrigated out both nasal passages for any residual blood. I also suctioned out any residual blood as well. I then placed a dorsal nasal splint for stability for a few days. This was placed on the dorsum of the nose after placing Steri- Strips first on the skin. I then used a 2 x 2 gauze to help absorb any oozing from the nasal passages and packing postoperatively. The patient tolerated the procedure well and will be sent to recovery room in satisfactory condition. I didn't put the nasal septal button prosthesis in to temporarily close the perforation because of the need for the dorsal cartilaginous strut graft reconstruction. I want the septal reconstruction to heal properly before deciding on further operative management for her septal perforation. She will be sent upstairs for surgical observation overnight stay in the hospital. Once she is tolerating po analgesia, she will be sent home on antibiotics and pain medicine. She will follow up in the office next week for removal of the nasal packing, and at that point, she will continue to wear the dorsal nasal splint for 2 weeks all the time and then for an additional 2 weeks just at night. This will be reminded to the patient to take it easy during the initial postoperative period to minimize trauma to the nose to allow proper healing. She will keep her head elevated during the initial postoperative period and be on a lifting restriction. Anticipate she will get some swelling around her eyes and she can apply cold compresses as needed for periorbital swelling. The nasal columellar sutures will be removed in a week or two. Once again it will be reiterated to the patient postoperatively about the importance of not smoking for proper healing. If she has trouble stopping smoking, and if she develops c ontinued issues and goes to a tertiary center for evaluation, they will probably hold off on any complex nasal septal reconstruction in the future until she does stop smoking. Grafts/Implants Used: PDS Plate Graft. - Complications None. - Admit VTE Documentation VTE Present on Admission: No VTE Mechan Device Prophylaxis: SCD's VTE Pharm Prophylaxis ordered?: Yes Code Visit Surgery Charges CPT - 23024 ICD-10 - J98.8, J34.89, R06.00, S02.31xS, F17.200 39981 J98.8, J34.89, R06.00, S02.31xS, F17.200 49500 J34.89, J98.8, R06.00, S02.31xS, F17.200 [id number] J34.89, J98.8, R06.00, S02.31xS, F17.200
[2018-02-17 19:38] LABS: Cotinine Screen Blood 50.2 ng/mL (.); Nicotine Blood 6.3 ng/mL (.)
== END 2018-02-17 15:20 | disposition home or self-care (01) ==
LOC: SDC 07:18 → AC 07:19 → MS3 11:41
PROVIDERS: Anesthesiology; Family Provider Internal Medicine; PCP Internal Medicine; Referring Provider Surgery; Visit Provider Internal Medicine
PROC: (CPT 21235; principal; 2018-02-16 08:40)
DX: J34.89 Other specified disorders of nose and nasal sinuses (principal); J34.2 Deviated nasal septum; S02.31XS Fracture of orbital floor, right side, sequela; S00.11XS Contusion of right eyelid and periocular area, sequela; X58.XXXS Exposure to other specified factors, sequela; F32.9 Major depressive disorder, single episode, unspecified; F41.9 Anxiety disorder, unspecified; M54.5 Low back pain; K21.9 Gastro-esophageal reflux disease without esophagitis; J45.909 Unspecified asthma, uncomplicated; E11.9 Type 2 diabetes mellitus without complications; M06.9 Rheumatoid arthritis, unspecified; G43.909 Migraine, unspecified, not intractable, without status migrainosus; E78.5 Hyperlipidemia, unspecified; K59.00 Constipation, unspecified; E66.3 Overweight; Z68.27 Body mass index [BMI] 27.0-27.9, adult; F17.210 Nicotine dependence, cigarettes, uncomplicated; F17.220 Nicotine dependence, chewing tobacco, uncomplicated; Z79.4 Long term (current) use of insulin; Z79.82 Long term (current) use of aspirin; Z79.899 Other long term (current) drug therapy
CPT/HCPCS: 21235 ×2; 30465; 30620; 36415; 70250; 76000; 80048; 80076; 80307; 80323; 82962; 83036; 84134; 85027; 85610; 85730; 93005; 94762; 99406; J7120; A4216; J2405

== ENCOUNTER 2018-03-09 12:10 | Emergency (ER) | payer MEDICARE, SELFPAY ==
[2018-03-04 16:05] VITALS: BMI 27.8
[2018-03-09 12:11] VITALS: BP 131/83; PULSE 109; RESP 18; TEMP 36.6; O2SAT 97; BMI 28.6
--- NOTE | 2018-03-09 12:28 | RAD_ITS ---
STUDY: X-RAY - LUMBAR SPINE REASON FOR EXAM: Female, 42 years old. Low back pain and left hypernephroma injury. TECHNIQUE: 3 view(s) of the lumbar spine were obtained. COMPARISON: Comparison is made with prior study dated October 24, 2016. FINDINGS: Normal lumbar lordosis. There is a levoscoliosis of the lumbar spine. There is a normal alignment of the vertebrae. Normal vertebral bodies and endplates. Mild disc space narrowing at the L5-S1 level. IUD is seen within the pelvis. RAD/Lumbar Spine 2 or 3 Views IMPRESSION: Mild levoscoliosis. Mild disc space narrowing at the L5-S1 level. Electronically Signed: Saul Colon MD at 14:16 EST Tel [phone], Service support ,
--- NOTE | 2018-03-09 12:28 | RAD_ITS ---
STUDY: X-RAY - LEFT HIP REASON FOR EXAM: Female, 42 years old. Left hip pain following a fall. TECHNIQUE: 2 views of the hip. COMPARISON: None. FINDINGS: Normal femoral head, neck, intertrochanteric region and visualized proximal femur. Normal acetabulum. Normal hip joint. Normal visualized superior and inferior pubic rami and ischial tuberosities. IUD is seen within the pelvis. Calcified phleboliths. RAD/HIP, UNI W/ Pelvis 2-3 Views IMPRESSION: Normal x-ray examination of the hip. Electronically Signed: Saul Colon MD at 14:16 EST Tel [phone], Service support ,
--- NOTE | 2018-03-09 12:32 | ED.VISSUMM ---
- ER Visit Summary Date of Service: 03/09/18 Chief Complaint: Fall History of Present Illness: The patient is a 42 F who fell today on wooden stairs. She thinks she may have slipped. She landed on her left hip. She complains of left hip and left low back pain. Worse with ambulation. She did not hit her head or neck. Did not lose consciousness. Denies head or neck pain. Denies any new weakness or numbness. Denies nausea or vomiting. Denies vision changes. Denies blood thinner use. Physical Examination: Heart rate 109 otherwise vitals normal. Afebrile. Alert and oriented. No acute distress. Head and neck are atraumatic. Heart regular. Lungs clear. Abdomen soft. Left lumbar spine is tender to palpation. No tenderness over the midline. Left hip diffusely tender to palpation. No shortening or abnormal positioning. Negative logroll. Neurovascular intact distally. Good range of motion. Test Results: X-rays of the lumbar spine and left hip are pending. Emergency Department Course and Treatment: Patient treated with [place] while awaiting results. X-rays show no fracture. There is some disc space narrowing at L5-S1. Patient will be discharged home. Rest, ice, [id number] remedies for pain. Follow-up with primary care. Treatment Plan: As above Disposition: Discharge Impression: 1. Lumbar back pain 2. Left hip pain This note was generated with [employer] dictation software. It may contain incorrect words, spelling, and punctuation that were not noted in review of the chart prior to signing ED Disposition - Plan for ED Patient: Chief Complaint: Fall Referrals: Timmy Park MD [Primary Care Provider] -
[2018-03-09] MEDS: HYDROcodone Bitartrate/Apap 5/325 Tablet PO (12:50)
--- NOTE | 2018-03-09 14:40 | ED.DEP ---
ED Disposition - Plan for ED Patient: Chief Complaint: Fall Instructions: ED Mechanical Fall Referrals: Timmy Park MD [Primary Care Provider] -
[2018-03-09 14:51] VITALS: BP 112/81; PULSE 91; RESP 16; O2SAT 95
--- OUTSIDE RECORDS SUMMARY | 2018-04-25 15:57 | XMS RPT_ITS ---
:1975 Author Organization OHIP Support Name Relationship Address Phone D Unavailable Unavailable Unavailable GRASERISRAELON Unavailable [address] + [place] [address] D Unavailable Unavailable Unavailable GRASERISRAELON Unavailable [address] + [place] [address] D Unavailable Unavailable Unavailable GRASER SABINA Unavailable [address] + [place] [address] D Unavailable Unavailable Unavailable GRASER SABINA Unavailable [address] + [place] [address] D Unavailable Unavailable Unavailable GRASER SABINA Unavailable [address] + [place] [address] D Unavailable Unavailable Unavailable GRASER SABINA Unavailable [address] + [place] [address] D Unavailable Unavailable Unavailable GRASERISRAELON Unavailable [address] + [place] [address] D Unavailable Unavailable Unavailable GRASER SABINA Unavailable [address] + [place] [address] D Unavailable Unavailable Unavailable GRASER SABINA Unavailable [address] + [place] [address] D Unavailable Unavailable Unavailable GRASER SABINA Unavailable [address] + [place] [address] D Unavailable Unavailable Unavailable GRASERISRAELON Unavailable [address] + [place] [address] D Unavailable Unavailable Unavailable GRASER SABINA Unavailable [address] + [place] [address] D Unavailable Unavailable Unavailable GRASER, SABINA Unavailable [address] + [place] [address] D Unavailable Unavailable Unavailable GRASER SABINA Unavailable [address] + [place] [address] D Unavailable Unavailable Unavailable GRASER SABINA Unavailable [address] + [place] [address] D Unavailable Unavailable Unavailable GRASERISRAELON Unavailable [address] + [place] [address] D Unavailable Unavailable Unavailable ISRAEL GRANTON Unavailable [address] + [place] [address] D Unavailable Unavailable Unavailable GRASERISRAELON Unavailable [address] + [place] [address] D Unavailable Unavailable Unavailable GRASERISRAELON Unavailable [address] + [place] [address] D Unavailable Unavailable Unavailable GRASISRAEL BENDERON Unavailable [address] + [place] [address] D Unavailable Unavailable Unavailable ISRAEL GRANTON Unavailable [address] + [place] [address] D Unavailable Unavailable Unavailable SABINA GRANT Unavailable [address] + [place] [address] D Unavailable Unavailable Unavailable SABINA GRANT Unavailable [address] + [place] [address] D Unavailable Unavailable Unavailable SABINA GRANT Unavailable [address] + [place] [address] D Unavailable Unavailable Unavailable SABINA GRANT Unavailable [address] + [place] [address] D Unavailable Unavailable Unavailable SABINA GRANT Unavailable [address] + [place] [address] GRASSSABINA BENDER Unavailable [address] + [address] [place], [place] [id number] NOT GIVEN Unavailable Unavailable Unavailable D Unavailable Unavailable Unavailable SABINA GRANT Unavailable [address] + [place] [address] D Unavailable Unavailable Unavailable GRASERISRAELON Unavailable [address] + [place] [address] D Unavailable Unavailable Unavailable ISRAEL GRANTON Unavailable [address] + [place] [address] D Unavailable Unavailable Unavailable GRASERISRAELON Unavailable [address] + [place] [address] D Unavailable Unavailable Unavailable GRASISRAEL BENDERON Unavailable [address] + [place] [address] D Unavailable Unavailable Unavailable ORIONERISRAELON Unavailable [address] + [place] [address] D Unavailable Unavailable Unavailable GRASERISRAELON Unavailable [address] + [place] [address] D Unavailable Unavailable Unavailable GRASERISRAELON Unavailable [address] + [place] [address] D Unavailable Unavailable Unavailable GRASERISRAELON Unavailable [address] + [place] [address] D Unavailable Unavailable Unavailable GRASERISRAELON Unavailable [address] + [place] [address] D Unavailable Unavailable Unavailable GRASERISRAELON Unavailable [address] + [place] [address] D Unavailable Unavailable Unavailable GRASERISRAELON Unavailable [address] + [place] [address] D Unavailable Unavailable Unavailable ORIONERISRAELON Unavailable [address] + [place] [address] D Unavailable Unavailable Unavailable ISRAEL GRANTON Unavailable [address] + [place] [address] D Unavailable Unavailable Unavailable ISRAEL GRANTON Unavailable [address] + [place] [address] D Unavailable Unavailable Unavailable ORIONERISRAELON Unavailable [address] + [place] [address] D Unavailable Unavailable Unavailable ISRAEL GRANTON Unavailable [address] + [place] [address] D Unavailable Unavailable Unavailable ISRAEL GRANTON Unavailable [address] + [place] [address] D Unavailable Unavailable Unavailable GRASERISRAELON Unavailable [address] + [place] [address] D Unavailable Unavailable Unavailable GRASERISRAELON Unavailable [address] + [place] [address] D Unavailable Unavailable Unavailable GRASERISRAELON Unavailable [address] + [place] [address] D Unavailable Unavailable Unavailable GRASERISRAELON Unavailable [address] + [place] [address] D Unavailable Unavailable Unavailable GRASERISRAELON Unavailable [address] + [place] [address] Care Team Providers Name Role Phone PARK, LORA Attending Unavailable PARK, LORA Referring Unavailable PARK, LORA Attending Unavailable PARK, LORA Referring Unavailable PARK, LORA Referring Unavailable OLDER, PATRICIA (BOILER ERECTOR) Attending Unavailable PARK, LORA Referring Unavailable PARK, LORA Referring Unavailable PARK, LORA Attending Unavailable OLDER, PATRICIA (BOILER ERECTOR) Attending Unavailable OLDER, PATRICIA (BOILER ERECTOR) Referring Unavailable OLDER, PATRICIA (BOILER ERECTOR) Attending Unavailable OLDER, PATRICIA (BOILER ERECTOR) Attending Unavailable PARK, LORA Attending Unavailable PARK, LORA Referring Unavailable OLDER, PATRICIA (BOILER ERECTOR) Attending Unavailable PARK, LORA Referring Unavailable PARK, LORA Referring Unavailable OLDER, PATRICIA (BOILER ERECTOR) Attending Unavailable PARK, LORA Referring Unavailable OLDER, PATRICIA (BOILER ERECTOR) Attending Unavailable OLDER, PATRICIA (BOILER ERECTOR) Attending Unavailable OLDER, PATRICIA (BOILER ERECTOR) Attending Unavailable PARK, LORA Attending Unavailable PARK, LORA Referring Unavailable PARK, LORA Referring Unavailable SlabRoberto terrell Attending Unavailable Park, Timmy Primary Care Unavailable Roberto Holden Referring Unavailable Ephraim Tai D.O. Consulting Unavailable Roberto Holden Admitting Unavailable White, Stella Consulting Unavailable Lg, Stella Attending Unavailable Roberto Holden Referring Unavailable Park, Timmy Primary Care Unavailable Roberto Holden Consulting Unavailable Stella Castanon Attending Unavailable Roberto Holden Referring Unavailable Park, Timmy Primary Care Unavailable Ephraim Tai D.O. Consulting Unavailable White, Stella Consulting Unavailable Roberto Holden Admitting Unavailable Sarahi ThapaO. Attending Unavailable Roberto Holden Referring Unavailable Park, Timmy Primary Care Unavailable Sarahi ThapaO. Consulting Unavailable Lg, Stella Consulting Unavailable Roberto Holden Admitting Unavailable Roberto Holden Attending Unavailable Roberto Holden Referring Unavailable Park, Timmy Primary Care Unavailable Sarahi ThaapO. Consulting Unavailable Roberto Holden Consulting Unavailable Roberto Holden Admitting Unavailable Stella Castanon Attending Unavailable Roberto Holden Referring Unavailable Park, Timmy Primary Care Unavailable Sarahi ThapaO. Consulting Unavailable Roberto Holden Consulting Unavailable Park, Timmy Primary Care Unavailable Krishna Gill Attending Unavailable Park, Timmy Primary Care Unavailable Alda Hubbard Attending Unavailable AshGunjan Attending Unavailable Park, Timmy Referring Unavailable Ash, Gunjan E Attending Unavailable Ash, Gunjan E Referring Unavailable Park, Timmy Primary Care Unavailable Jeff Boyd Attending Unavailable Park, Timmy Referring Unavailable Ash, Gunjan Harika Attending Unavailable Park, Timmy Referring Unavailable Park, Timmy Primary Care Unavailable Elio Burger Attending Unavailable Roberto Holden Admitting Unavailable SlabRoberto terrell Attending Unavailable Roberto Holden Referring Unavailable Park, Timmy Primary Care Unavailable Ephraim Tai D.O. Consulting Unavailable Roberto Holden Consulting Unavailable Roberto Holden Admitting Unavailable Stella Castanon Attending Unavailable SlabRoberto terrell Referring Unavailable Park, Timmy Primary Care Unavailable Ephraim Tai D.O. Consulting Unavailable Roberto Holden Consulting Unavailable Roberto Holden Attending Unavailable Park, Timmy Referring Unavailable Park, Timmy Primary Care Unavailable Roberto Holden Admitting Unavailable Roberto Holden Attending Unavailable SlabRoberto terrell Referring Unavailable Park, Timmy Primary Care Unavailable Ephraim Tai D.O. Consulting Unavailable Roberto Holden Consulting Unavailable Roberto Holden Admitting Unavailable Roberto Holden Attending Unavailable SlabRoberto terrell Referring Unavailable Park, Timmy Primary Care Unavailable Ephraim Tai D.O. Consulting Unavailable Stella Castanon Consulting Unavailable Roberto Holden Consulting Unavailable Roberto Holden Attending Unavailable Park, Timmy Referring Unavailable Park, Timmy Primary Care Unavailable SlabRoberto terrell Attending Unavailable Park, Timmy Referring Unavailable Park, Timmy Primary Care Unavailable Demetri Sequeira Attending Unavailable SlabyRoberto Referring Unavailable SlabyRoberto Attending Unavailable Park, Timmy Referring Unavailable Park, Timmy Primary Care Unavailable Harinder Alvarez Attending Unavailable Park, Timmy Referring Unavailable Park, Timmy Primary Care Unavailable Harinder Alvarez Attending Unavailable Park, Timmy Primary Care Unavailable Slaby, Roberto Attending Unavailable Park, Timmy Primary Care Unavailable SlabRoberto terrell Referring Unavailable Park, Timmy Primary Care Unavailable Corby Lopez Attending Unavailable Corby Lopez Referring Unavailable Park, Timmy Primary Care Unavailable Carlo Bowens Attending Unavailable Mario Rothman Attending Unavailable Park, Timmy Primary Care Unavailable Park, Timmy Primary Care Unavailable Harinder Hall Attending Unavailable Park, Timmy Primary Care Unavailable Corby San[place] Attending Unavailable Park, Timmy Primary Care Unavailable Lazaro Jacques Attending Unavailable Lazaro Jacques Referring Unavailable SlabRoberto terrell Attending Unavailable Park, Timmy Referring Unavailable Park, Timmy Primary Care Unavailable PrebishNitza FUNERAL SERVICE LICENSEE-C Attending Unavailable Prebish, Nitza FUNERAL SERVICE LICENSEE-C Referring Unavailable Park, Timmy Primary Care Unavailable Roberto Holden Attending Unavailable Roberto Holden Referring Unavailable Park, Timmy Primary Care Unavailable Park, Timmy Primary Care Unavailable Krzysztof Ann Attending Unavailable Roberto Holden Attending Unavailable Park, Timmy Referring Unavailable Pakr, Timmy Primary Care Unavailable Park, Timmy Primary Care Unavailable Elio Burger Attending Unavailable Park, Timmy Primary Care Unavailable Mario Rothman Attending Unavailable Park, Timmy Primary Care Unavailable Mario Rothman Attending Unavailable Roberto Holden Referring Unavailable Park, Timmy Primary Care Unavailable DeHorta, Perez Consulting Unavailable Neymar, Clarke Attending Unavailable Ashelfah, Ghasem Consulting Unavailable Hazel Osborn Attending Unavailable Park, Timmy Referring Unavailable ChicorelliHazel Attending Unavailable Park, Timmy Primary Care Unavailable Adrian Castañedam Attending Unavailable Roberto Holden Referring Unavailable Park, Timmy Primary Care Unavailable DeHorta, Perez Consulting Unavailable Roberto Holden Consulting Unavailable Neymar, Clarke Attending Unavailable Roberto Holden Referring Unavailable Park, Timmy Primary Care Unavailable DeHorta, Perez Consulting Unavailable Ashelfah, Ghasem Consulting Unavailable Neymar, Clarke Consulting Unavailable Rboerto Holden Attending Unavailable Roberto Holden Referring Unavailable Park, Timmy Primary Care Unavailable DeHorta, Perez Consulting Unavailable Ashelfah, Ghasem Consulting Unavailable Neymar, Clarke Consulting Unavailable Roberto Holden Attending Unavailable Roberto Holden Referring Unavailable Park, Timmy Primary Care Unavailable DeHorta, Perez Consulting Unavailable Ashelfah, Ghasem Consulting Unavailable Neymar, Clarke Consulting Unavailable Roberto Holden Attending Unavailable Park, Timmy Referring Unavailable Demetri Sequeira Attending Unavailable Roberto Holden Referring Unavailable Gunjan Aleman Attending Unavailable Timmy Park Referring Unavailable DIOP, OMA Attending Unavailable TIMMY PARK Referring Unavailable DIOP, OMA Referring Unavailable DIOP, OMA Referring Unavailable DIOP, OMA Attending Unavailable DIOP, OMA Referring Unavailable ROXANNA, DR ÁLVARO Shabazz Admitting Unavailable ROXANNA, DR ÁLVARO Shabazz Attending Unavailable TIMMY PARK Referring Unavailable ROXANNA, DR ÁLVARO Shabazz Primary Care Unavailable TIMMY PARK Consulting Unavailable PROVIDER, UNKNOWN Consulting Unavailable DIOP, OMA Referring Unavailable Timmy Park MD Primary Care Unavailable DIOP, OMA Referring Unavailable Timmy Park MD Primary Care Unavailable DIOP, OMA Attending Unavailable DIOP, OMA Referring Unavailable Timmy Park MD Primary Care Unavailable DIOP, OMA Attending Unavailable Timmy Park MD Referring Unavailable Timmy Park MD Primary Care Unavailable PROBLEMS PROBLEMS DATE TYPE CONDITION / CODE ATTENDING STATUS SOURCE 06/03/2017 Active Type 2 diabetes NA Active [place] mellitus with [facility] hyperglycemia / [place] E11.65(ICD-10) Repository 06/03/2017 Active care home (current) NA Active [place] use of insulin / [facility] Z79.4(ICD-10) [place] Repository 04/16/2018 Active Localized edema / NA Active [place] R60.0(ICD-10) Clinic Main [place] Repository 04/16/2018 Active Pain in unspecified NA Active [place] joint / [facility] M25.50(ICD-10) [place] Repository 04/16/2018 Active Irregular NA Active [place] menstruation, [facility] unspecified / [place] N92.6(ICD-10) Repository 04/14/2018 Unknown S76.111D - Strain of Chicorelli, Active [place] right quadriceps [facility] muscle, fascia and Hospital tendon, subsequent Repository encounter / S76.111D(ICD-10) 03/19/2018 Unknown J34.89 - Other Ash, Active [place] specified disorders [facility] nose and nasal [facility] sinuses / Repository J34.89(ICD-10) 03/19/2018 Unknown T81.31XA - Ash, Active [place] Disruption of Gunjan E Community external operation Hospital (surgical) wound, Repository not elsewhere classified, initial encounter / T81.31XA(ICD-10) 03/19/2018 Unknown F17.200 - Nicotine Ash, Active [place] dependence, Gunjan E Community unspecified, Hospital uncomplicated / Repository F17.200(ICD-10) 02/21/2018 Unknown G89.18 - Other acute Roberto Holden Active [place] postprocedural pain Community / G89.18(ICD-10) Hospital Repository 03/02/2018 Unknown Z01.810 - Encounter HuaDemetri finney Active [place] for preprocedural [facility] cardiovascular Hospital examination / Repository Z01.810(ICD-10) 02/10/2018 Admitting Unknown / NA Active [place] [facility] diagnosis [facility](Unknown[facility] Health System Repository 01/12/2018 Unknown L02.91 - Cutaneous LeMario Active [place] abscess, unspecified Community / L02.91(ICD-10) Hospital Repository 12/21/2017 Unknown R06.00 - Dyspnea, Roberto Holden Active [place] unspecified / Community R06.00(ICD-10) Hospital Repository 12/21/2017 Unknown J98.8 - Other Roberto Holden Active [place] specified Community respiratory Hospital disorders / Repository J98.8(ICD-10) 12/21/2017 Unknown S02.31XS - Fracture Roberto Holden Active [place] of orbital floor, [facility] right side, [facility] Hospital / S02.31XS(ICD-10) Repository 01/27/2018 Unknown M25.551 - Pain in San[place]ria, Active [place] right hip / [facility] M25.551(ICD-10) Hospital Repository 08/20/2017 Unknown M50.30 - Other John, Active [place] cervical disc [facility] degeneration, Hospital unspecified cervical Repository region / M50.30(ICD-10) 08/14/2017 Active Restless legs NA Active [place] syndrome / [facility] G25.81(ICD-10) [place] Repository 07/15/2017 Active Other detention NA Active [place] (current) drug [facility] therapy / [place] Z79.899(ICD-10) Repository 07/01/2017 Unknown K08.89 - Other Shundry, Active [place] specified disorders [facility] supporting Repository structures / K08.89(ICD-10) 06/30/2017 Active Unknown / NA Active [place] UNK(Unknown) Clinic Main [place] Repository 06/24/2017 Unknown M25.562 - Pain in Harinder Alvarez Active [place] left knee / Community M25.562(ICD-10) Hospital Repository 06/24/2017 Unknown J95.821 - Acute Roberto Holden Active [place] postprocedural [facility] respiratory failure Hospital / J95.821(ICD-10) Repository 06/24/2017 Unknown J34.2 - Deviated Roberto Holden Active [place] nasal septum / Community J34.2(ICD-10) Hospital Repository 05/19/2017 Unknown E11.9 - Type 2 White, Stella Active [place] diabetes mellitus Community without Hospital complications / Repository E11.9(ICD-10) 06/02/2017 Unknown R00.0 - Tachycardia, Hua, Demetri Active [place] unspecified / Community R00.0(ICD-10) Hospital Repository PROCEDURES PROCEDURES No Procedure Records FoundRESULTS RESULTS EMERGENCY DEPARTMENT Observed: 04/17/2018 Status: F Source: [place] SUMMARY 2:47 PM [facility] REPOSITORY [facility] Medical Records Department [address] [place] [address] Emergency Department Summary 04/17/18 0945 MR#: [id number] Acct: [id number] Name: COLLEEN MILIAN Rep #: [id number] : 1975 42 From: Elio Burger MD PCP: Timmy Park MD Status: DEP ER - ER Visit Summary Date of Service: 04/17/18 Chief Complaint: [] Rectal sensation for about a week or 2 History of Present Illness: The patient is a 42 F [] history of diabetes stable she is noticed basally for a week or 2 some unspecified sense of fullness or bump to her perirectal area, when she is laying flat face down this area is at the 9 o'clock position just lateral to the anal verge, it is not painful there is no fever no cough normal bowel bladder habits no history of MRSA abscesses or other conditions and again diabetes is well- controlled with blood sugars about 150 Physical Examination: [] Febrile 150/80 General, no distress resting comfortably HEENT is generally unremarkable The neck is supple no adenopathy Cardiovascular, regular rate and rhythm Lungs, clear bilateral Abdomen, soft nontender The rectal area of the rectal exam itself shows no pain with digital rectal exam no lesions no mass, just lateral to the rectal verge there is a soft 2-3 mm papule that she points to is causing her sense of bump, there is no fluctuance no crepitance no subcu air and again the rectal exam shows no extension into the rectum the rest of the exam is unremarkable Extremities, no clubbing cyanosis or edema Neurologic, awake alert answering questions appropriately moving all 4 extremities Test Results: [] Emergency Department Course and Treatment: [] the above to her given the duration of the symptoms I explained that the etiology is unclear it could certainly could be an early lesion of some kind is currently unspecified and she needs follow- up with surgery, she is referred to Dr. Sarah, her family doctors and outpatient providers to be seen in the next few days we will start her on Bactrim DS sitz bath and to return for change in symptoms Treatment Plan: [] Disposition: [] Home stable Impression: [] 2-3 mm papule in the perirectal area This note was generated with [employer]ur[employer] dictation software. It may contain incorrect words, spelling, and punctuation that were not noted in review of the chart prior to signing ED Disposition - Plan for ED Patient: Chief Complaint: Abscess Referrals: Timmy Park MD [Primary Care Provider] - What to do if you have Problems For any increased pain, shortness of breath, bleeding, nausea or vomiting, chest pain, or any unexpected problems, contact your Primary Care Provider. Call [facility] ([phone]) or report to the closest Emergency Room. Call 911 if necessary. 04/17/18 2573 <Electronically signed by Elio Burger MD> Date Elio Burger MD Cosigner Signature (If Indicated): Date CC: Timmy Park MD DISCHARGE INSTRUCTION Observed: 04/17/2018 Status: F Source: [place] 9:50 AM [facility] REPOSITORY [facility] Medical Records Department [address] [place] [address] Discharge Instruction 04/17/18 0948 MR#: [id number] Acct: [id number] Name: COLLEEN MILIAN Rep #: [id number] : 1975 42 From: Elio Burger MD PCP: Timmy Park MD Status: PRE ER ED Disposition - Plan for ED Patient: Chief Complaint: Abscess Instructions: ED Skin Infec MRSA Suspect Conf Prescriptions: Smz/Tmp Ds [Bactrim Ds] 1 tab PO BID #14 tab Referrals: Timmy Park MD [Primary Care Provider] - Krishna Sarah MD [STAFF PHYSICIAN] - What to do if you have Problems For any increased pain, shortness of breath, bleeding, nausea or vomiting, chest pain, or any unexpected problems, contact your Primary Care Provider. Call [facility] ([phone]) or report to the closest Emergency Room. Call 911 if necessary. 04/17/18 0950 <Electronically signed by Elio Burger MD> Date Elio Burger MD Cosigner Signature (If Indicated): Date CC: Timmy Park MD TRANSGLUTAMINASE ABS Collected: 04/16/2018 Status: F Source: [place] 1:12 PM [facility] REPOSITORY TYPE CODE TESTS RESULT OUT OF REFERENCE UNITS RANGE LAB TGIGG <20 Units Transglutaminase IgG 2 Result Comment: Negative : < 20 Units Weak Positive : 20 - 30 Units Moderate Pos to Strong Pos: >30 Units The following results were obtained with the [employer] QUANTA Lite h-hTG IgG MECHE. h-tTG IgG values obtained with different manufacturers' assay methods may not be used interchangeably. The magnitude of th e reported IgG levels cannot be correlated to an endpoint titer. LAB TGIGA <20 Units Transglutaminase IgA 4 Result Comment: Negative : < 20 Units Weak Positive : 20 - 30 Units Moderate Pos to Strong Pos: >30 Units The following results were obtained with the [employer] QUANTA Lite h-tTG IgA MECHE. h-tTG IgA values obtained with different manufacturers' assay methods may not be used interchangeably. The magnitude of th e reported IgA levels cannot be correlated to an endpoint titer. Performed By: #### TGLGMA, GLIAD #### [facility] [employer] [place] [address] [place], [place] [address] GLIADIN(DEAMIN.)ABS Collected: Status: F Source: [place] 04/16/2018 1:12 PM [facility] REPOSITORY TYPE CODE TESTS RESULT OUT OF REFERENCE UNITS RANGE LAB GLIADA <20 Units Gliad IgA 5 Ab Result Comment: Negative : < 20 Units Weak Positive : 20 - 30 Units Moderate Pos to Strong Pos: >30 Units The following results were obtained with the [employer] QUANTA Lite Gliadin IgA MECHE. Gliadin IgA values obtained with different manufacturers' assay methods may not be used interchangeably. The magnitude o f the reported IgA levels cannot be correlated to an endpoint titer. LAB GLIADG <20 Units Gliad IgG Ab 2 Result Comment: Negative : < 20 Units Weak Positive : 20 - 30 Units Moderate Pos to Strong Pos: >30 Units The following results were obtained with the [employer] QUANTA Lite Gliadin IgG MECHE. Gliadin IgG values obtained with different manufacturers' assay methods may not be used interchangeably. The magnitude o f the reported IgG levels cannot be correlated to an endpoint titer. Performed By: #### TGLGMA, GLIAD #### [facility] [employer] [place] [address] [place] [address], [place] [address] BASIC METABOLIC PANL Collected: 04/16/2018 Status: F Source: [place] 1:10 PM [facility] REPOSITORY TYPE CODE TESTS RESULT OUT OF REFERENCE UNITS RANGE LAB GLU 74-99 mg/dL High Glucose 134 Result Comment: The [place] [employer] (ADA) provides guidance for cutoff values for fasting glucose and random glucose. The ADA defines fasting as no caloric intake for at least 8 hours. Fas ting plasma glucose results between 100 to 125 mg/dL indicate increased risk for diabetes (prediabetes). Fasting plasma glucose results greater than or equal to 126 mg/dL meet the criteria for diagnosis of diabetes. In the absence of unequivocal hyperglycemia, results should be confirmed by repeat testing. In a patient with classic symptoms of hyperglycemia or hyperglycemic crisis, random plasma glucose results greater than or equal to 200 mg/dL meet the criteria for diagnosis of diabetes. Reference: Standards of Medical Care in Diabetes 2016, [place] [employer]. Diabetes Care. 2016.39(Suppl 1).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 ACHS #1 flexpen 04/30/17 [Rx Confirmed 03/25/18] Atorvastatin Calcium [Lipitor] 10 mg PO QHS 10/10/17 [History Confirmed 03/25/18] Insulin Detemir [Levemir FlexPen] 27 units SUBCUT QHS 10/10/17 [History Confirmed 03/25/18] Pramipexole Di-HCl [Mirapex] 0.125 mg PO QHS 10/10/17 [History Confirmed 03/25/18] Acetaminophen [Tylenol Arthritis] 650 mg PO Q8H PRN PRN 02/09/18 [History Confirmed 03/25/18] Diclofenac Sodium [Voltaren] 0 gm TOPICAL PRN PRN 02/09/18 [History Confirmed 03/25/18] Loperamide HCl [Imodium A-D] 2 mg PO PRN PRN 02/09/18 [History Confirmed 03/25/18] Metformin HCl [Glucophage] 500 mg PO BIDCM 02/09/18 [History Confirmed 03/25/18] Multivitamin [Multiple Vitamins] 1 ea PO BID 02/09/18 [History Confirmed 03/25/18] Sumatriptan Succinate [Imitrex] 50 mg PO .X1 PRN PRN 02/09/18 [History Confirmed 03/25/18] buPROPion tablets [Wellbutrin tablets] 0.5 tab PO BID 02/09/18 [History Confirmed 03/25/18] hydroCHLOROthiazide [Hydrochlorothiazide] 12.5 mg PO DAILY 02/09/18 [History Confirmed 03/25/18] Clindamycin HCl [Cleocin] 300 mg PO TID #30 cap 02/17/18 [Rx Confirmed 03/25/18] Docusate Sodium [Colace] 100 mg PO BID PRN PRN #60 cap 02/17/18 [Rx Confirmed 03/25/18] Famotidine [Pepcid] 20 mg PO BID PRN PRN tab 02/17/18 [Rx Confirmed 03/25/18] Insulin Lispro [Humalog KwikPen] See Protocol SUBCUT ACHS insuln.pen 02/17/18 [Rx Confirmed 03/25/18] Loratadine [Claritin] 10 mg PO DAILY tab 02/17/18 [Rx Confirmed 03/25/18] Rizatriptan Benzoate [Maxalt] 10 mg PO X1 PRN tab 02/17/18 [Rx Confirmed 03/25/18] proMETHazine tablet [Phenergan tablet] 25 mg PO 4X/DAY PRN PRN #30 tab 02/17/18 [Rx Confirmed 03/25/18] Cyclobenzaprine [Flexeril] 10 mg PO TID PRN #20 tab 03/17/18 [Rx Confirmed 03/25/18] ibuprofen 800 mg tablet 800 mg PO TID 03/25/18 [History Confirmed 03/25/18] PFSH Medical History Acid reflux disease (Acute) Anxiety (Acute) Arthritis (Acute) Asthma (Acute) Back problem (Acute) Bladder infection (Acute) Chronic headaches (Acute) Diabetes (Acute) Fracture of orbital floor, blow-out, right, closed (Acute) Gallstones (Acute) Hearing problem (Acute) Rheumatoid arteritis (Acute) Seasonal allergies (Acute) Vision problems (Acute) Surgical History Closed fracture of right orbital floor (Acute) H/O section (Acute) History of cholecystectomy (Acute) History of nasal septoplasty (Acute) Family History Unknown No problems noted. Social History Smoking Status: Current every day smoker second hand exposure: Yes alcohol intake: former substance use type: does not use what type of physical activity do you participate in: walking seatbelt use: always additional social history: SUN EXPOSURE: FREQUENTLY HPI postop surgery 02/16/18: Details: Postop visit from her recent surgery on 02/16/18 where she underwent repair internal nasal vestibular stenosis with placement bilateral cartilage biological technician grafts from the right ear and septal dermatoplasty reconstruction with placement dorsal cartilage strut graft from the left ear and placement PDS plate graft. Patient comes in today with no more pain complaints in her right posterior ear and no breathing complaints. She stated she noticed something tickling the inside of her nose on the right side. She took a pair of tweezers and pulled out a thin sliver of plastic. Since then there has been no more tickling. It was probably the edge of the PDS plate graft that eventually absorbs. Since it was removed without too much difficulty, it is already partially absorbed. Stressed to her that if she develops issues like this in the future, do not pull it out yourself because of risk of infection. Come into the office for evaluation and we can remove it either in the office or in the operating room. She voiced understanding. The recent culture from 03/18/18 from her right posterior ear showed Coag negative Staph, a surface contaminant, and no antibiotics are needed. On exam, the right posterior ear wound has healed. She can stop the Silver dressing changes. Left ear incision is healing satisfactory. No clinical evidence of hematoma bilaterally. She is being careful not to bump her nose. She has good nasal contour. She is breathing ok. Intranasally, there is no evidence of further exposed PDS plate graft. Septal perforation is stable. Followup on an as needed basis. Encouraged patient to stop smoking as it may have deleterious effects on wound healing. She will need to stop smoking before proceeding with repair of her septal perforation in the future. Assessment AND Plan Problems 1. Airway obstruction, anatomic J98.8 2. Dyspnea R06.00 3. Other specified disorders of nose and nasal sinuses J34.89 4. Nasal septal perforation J34.89 5. Fracture of orbital floor, right side, sequela S02.31XS 6. Nonhealing surgical wound T81.89XA 7. Smoker F17.200 Coding Level of Care Code Global Post Op Diagnoses Airway obstruction, anatomic J98.8 Dyspnea R06.00 Other specified disorders of nose and nasal sinuses J34.89 Nasal septal perforation J34.89 Fracture of orbital floor, right side, sequela S02.31XS Nonhealing surgical wound T81.89XA Smoker F17.200 04/02/18 1144 <Electronically signed by Gunjan Aleman NP-C> Date Gunjan Aleman NP-C 04/02/18 1128<Electronically signed by Roberto Holden MD> Cosigner Signature: Date (if applicable) Roberto Holden MD CC: ORTHOPEDIC VISIT Observed: 03/25/2018 Status: F Source: [place] REPORT 12:23 PM [facility] REPOSITORY [facility] [address] [place] [address] OFFICE VISIT Date of Service: 03/25/18 MR#: [id number] Acct: [id number] Name: COLLEEN MILIAN Rep #: [id number] : 1975 Provider: BONITA Boyd Age/Sex: 42/F Location: [facility] Status: Signed Intake Vital Signs03/25/18 Body Mass Index (BMI) 28.3 Intake Visit Reasons: RIGHT KNEE Is patient in pain?: Yes Pain scale (1-10): 9 Allergies bee venom protein (honey bee) Allergy (Verified 03/18/18 15:43) Angioedema mold Allergy (Verified 03/18/18 15:43) Itching naproxen Allergy (Verified 03/18/18 15:43) Unknown venom-honey bee [bee venom (honey bee)] Allergy (Verified 03/18/18 15:43) Swelling amoxicillin Adverse Reaction (Verified 03/18/18 15:43) Upset Stomach guaifenesin [From Robitussin] Adverse Reaction (Verified 03/18/18 15:43) Nausea Medications Ranitidine [Zantac] 150 mg PO BID PRN 12/30/13 [History Confirmed 03/25/18] Epinephrine [Epi Pen] 0.3 mg IM X1 PRN 10/31/15 [History Confirmed 03/25/18] Escitalopram Oxalate [Lexapro] 20 mg PO DAILY 11/24/15 [History Confirmed 03/25/18] DiphenhydrAMINE [Benadryl] 25 mg PO TID PRN PRN #20 cap 02/24/16 [Rx Confirmed 03/25/18] Albuterol Inhaler [Ventolin Hfa] 1 - 2 puff INHALATION Q4H PRN PRN 06/13/16 [History Confirmed 03/25/18] Gabapentin [Neurontin] 400 mg PO TID 07/25/16 [History Confirmed 03/25/18] Albuterol Aerosols [Ventolin Aerosols] 2.5 mg INHALATION Q4H PRN PRN #30 vial 08/05/16 [Rx Confirmed 03/25/18] Insulin Aspart [Novolog Flexpen] See Protocol SC ACHS #1 flexpen 04/30/17 [Rx Confirmed 03/25/18] Atorvastatin Calcium [Lipitor] 10 mg PO QHS 10/10/17 [History Confirmed 03/25/18] Insulin Detemir [Levemir FlexPen] 27 units SUBCUT QHS 10/10/17 [History Confirmed 03/25/18] Pramipexole Di-HCl [Mirapex] 0.125 mg PO QHS 10/10/17 [History Confirmed 03/25/18] Acetaminophen [Tylenol Arthritis] 650 mg PO Q8H PRN PRN 02/09/18 [History Confirmed 03/25/18] Diclofenac Sodium [Voltaren] 0 gm TOPICAL PRN PRN 02/09/18 [History Confirmed 03/25/18] Loperamide HCl [Imodium A-D] 2 mg PO PRN PRN 02/09/18 [History Confirmed 03/25/18] Metformin HCl [Glucophage] 500 mg PO BIDCM 02/09/18 [History Confirmed 03/25/18] Multivitamin [Multiple Vitamins] 1 ea PO BID 02/09/18 [History Confirmed 03/25/18] Sumatriptan Succinate [Imitrex] 50 mg PO .X1 PRN PRN 02/09/18 [History Confirmed 03/25/18] buPROPion tablets [Wellbutrin tablets] 0.5 tab PO BID 02/09/18 [History Confirmed 03/25/18] hydroCHLOROthiazide [Hydrochlorothiazide] 12.5 mg PO DAILY 02/09/18 [History Confirmed 03/25/18] Clindamycin HCl [Cleocin] 300 mg PO TID #30 cap 02/17/18 [Rx Confirmed 03/25/18] Docusate Sodium [Colace] 100 mg PO BID PRN PRN #60 cap 02/17/18 [Rx Confirmed 03/25/18] Famotidine [Pepcid] 20 mg PO BID PRN PRN tab 02/17/18 [Rx Confirmed 03/25/18] Insulin Lispro [Humalog KwikPen] See Protocol SUBCUT ACHS insuln.pen 02/17/18 [Rx Confirmed 03/25/18] Loratadine [Claritin] 10 mg PO DAILY tab 02/17/18 [Rx Confirmed 03/25/18] Rizatriptan Benzoate [Maxalt] 10 mg PO X1 PRN tab 02/17/18 [Rx Confirmed 03/25/18] proMETHazine tablet [Phenergan tablet] 25 mg PO 4X/DAY PRN PRN #30 tab 02/17/18 [Rx Confirmed 03/25/18] Cyclobenzaprine [Flexeril] 10 mg PO TID PRN #20 tab 03/17/18 [Rx Confirmed 03/25/18] ibuprofen 800 mg tablet 800 mg PO TID 03/25/18 [History Confirmed 03/25/18] PFSH Medical History Acid reflux disease (Acute) Anxiety (Acute) Arthritis (Acute) Asthma (Acute) Back problem (Acute) Bladder infection (Acute) Chronic headaches (Acute) Diabetes (Acute) Fracture of orbital floor, blow-out, right, closed (Acute) Gallstones (Acute) Hearing problem (Acute) Rheumatoid arteritis (Acute) Seasonal allergies (Acute) Vision problems (Acute) Surgical History Closed fracture of right orbital floor (Acute) H/O section (Acute) History of cholecystectomy (Acute) History of nasal septoplasty (Acute) Family History Unknown No problems noted. Social History Smoking Status: Current every day smoker second hand exposure: Yes alcohol intake: former substance use type: does not use what type of physical activity do you participate in: walking seatbelt use: always additional social history: SUN EXPOSURE: FREQUENTLY HPI RIGHT KNEE: Details: COLLEEN MILIAN is a 42 year old F here today for f/u right knee pain. She states that a couple weeks ago she fell down the stairs and went to the ED due to back pain and was prescribed muscle relaxers. She has just started her PT and states that she has instability and a sharp pain in the medial knee. Denies any swelling. She does have a brace that she wears as needed. Denies numbness, tingling or other associated symptoms. Ortho Exam Right Knee Contralateral Normal: Yes Swelling: No Homans Sign: No Knee ROM: Yes ROM-Extension -20 to 0, Yes ROM-Flexion 0-140 Examination: No Med jt line tenderness, Yes Lat jt line tenderness, No TTP inf pole patella, No Pain with flexion, No Crepitus, No Pain with extention, No Ronan's Test Quad Atrophy: No Stability: NML: Anterior Drawer, NML: Bridget, NML: Posterior Drawer, NML: Valgus 30, NML: Varus 30 Popliteal Adenopathy: No Patella Grind: No KNEE: Today in the office patient has no evident abnormalities on inspection. She has no localized or generalized swelling. No evident skin changes. She has full range of motion of the knee as well as normal 5/5 strength comparable to the left knee. She is neurovascularly intact with normal sensation throughout. Her ACL, PCL, and collateral ligaments are intact without any laxity or pain with maneuvers. She does not have any evidence of meniscus at this time. Today she has some minor lateral joint line tenderness as well as superior patellar tenderness. Assessment AND Plan Problems 1. Acute pain of right knee M25.561 2. Strain of right quadriceps muscle, fascia and tendon, subsequent encounter S76.111D Plan At this point patient's knee is stable with intact ligamentous structures. She does not have any evidence of meniscus involvement at this time either. She has normal range of motion and full strength of the knee. Today she has the lateral joint line tenderness as well as some minor superior patellar margin tenderness. She is only had one session of physical therapy at this time and therefore it is hard to determine if this will continue to be helpful. She is to be wearing her brace all the time which she states does help her with stability. She can ice and take anti-inflammatories as needed for inflammation and pain, we will evaluate after her completion of physical therapy. She is to notify of any new concerns or complaints in the meantime. Plan Detail Follow Up 6 Weeks Coding Level of Care Code Off vis,est,level 3 Diagnoses Acute pain of right knee M25.561 Chronicity: acute Strain of right quadriceps muscle, fascia and tendon, subsequent encounter S76.111D 03/25/18 1223 <Electronically signed by Jeff MESA> Date Jeff MESA Cosigner Signature: Date (if applicable) CC: PLASTIC SURGERY Observed: 03/23/2018 Status: F Source: [place] VISIT REPORT 8:09 PM [facility] [address] [place] [address] OFFICE VISIT Date of Service: 03/18/18 MR#: [id number] Acct: [id number] Name: COLLEEN MILIAN Rep #: [id number] : 1975 Provider: KATHLEEN Aleman Age/Sex: 42/F Location: [facility] Status: Signed Intake Vital Signs03/18/18 Body Mass Index (BMI) 28.3 03/18/18 Blood Pressure 116/80 03/18/18 Blood Pressure Location Lt brachial 03/18/18 Blood Pressure Position Sitting 03/18/18 Respiratory Rate 16 Intake Visit Reasons: post op surgery 02/16/18 Pelt Dropper Required: No Accompanied by: None Is patient in pain?: Yes (BILATERAL EARS AND NOSE PAIN BURNING AND STINGING ) Pain scale (1-10): 10 Allergies bee venom protein (honey bee) Allergy (Verified 03/18/18 15:43) Angioedema mold Allergy (Verified 03/18/18 15:43) Itching naproxen Allergy (Verified 03/18/18 15:43) Unknown venom-honey bee [bee venom (honey bee)] Allergy (Verified 03/18/18 15:43) Swelling amoxicillin Adverse Reaction (Verified 03/18/18 15:43) Upset Stomach guaifenesin [From Robitussin] Adverse Reaction (Verified 03/18/18 15:43) Nausea Medications Ranitidine [Zantac] 150 mg PO BID PRN 12/30/13 [History Confirmed 03/09/18] Epinephrine [Epi Pen] 0.3 mg IM X1 PRN 10/31/15 [History Confirmed 03/09/18] Escitalopram Oxalate [Lexapro] 20 mg PO DAILY 11/24/15 [History Confirmed 03/09/18] DiphenhydrAMINE [Benadryl] 25 mg PO TID PRN PRN #20 cap 02/24/16 [Rx Confirmed 03/09/18] Albuterol Inhaler [Ventolin Hfa] 1 - 2 puff INHALATION Q4H PRN PRN 06/13/16 [History Confirmed 03/09/18] Gabapentin [Neurontin] 400 mg PO TID 07/25/16 [History Confirmed 03/09/18] Albuterol Aerosols [Ventolin Aerosols] 2.5 mg INHALATION Q4H PRN PRN #30 vial 08/05/16 [Rx Confirmed 03/09/18] Insulin Aspart [Novolog Flexpen] See Protocol SC ACHS #1 flexpen 04/30/17 [Rx Confirmed 03/09/18] Atorvastatin Calcium [Lipitor] 10 mg PO QHS 10/10/17 [History Confirmed 03/09/18] Insulin Detemir [Levemir FlexPen] 27 units SUBCUT QHS 10/10/17 [History Confirmed 03/09/18] Pramipexole Di-HCl [Mirapex] 0.125 mg PO QHS 10/10/17 [History Confirmed 03/09/18] Acetaminophen [Tylenol Arthritis] 650 mg PO Q8H PRN PRN 02/09/18 [History Confirmed 03/09/18] Diclofenac Sodium [Voltaren] 0 gm TOPICAL PRN PRN 02/09/18 [History Confirmed 03/09/18] Loperamide HCl [Imodium A-D] 2 mg PO PRN PRN 02/09/18 [History Confirmed 03/09/18] Metformin HCl [Glucophage] 500 mg PO BIDCM 02/09/18 [History Confirmed 03/09/18] Multivitamin [Multiple Vitamins] 1 ea PO BID 02/09/18 [History Confirmed 03/09/18] Sumatriptan Succinate [Imitrex] 50 mg PO .X1 PRN PRN 02/09/18 [History Confirmed 03/09/18] buPROPion tablets [Wellbutrin tablets] 0.5 tab PO BID 02/09/18 [History Confirmed 03/09/18] hydroCHLOROthiazide [Hydrochlorothiazide] 12.5 mg PO DAILY 02/09/18 [History Confirmed 03/09/18] Clindamycin HCl [Cleocin] 300 mg PO TID #30 cap 02/17/18 [Rx Confirmed 03/09/18] Docusate Sodium [Colace] 100 mg PO BID PRN PRN #60 cap 02/17/18 [Rx Confirmed 03/09/18] Famotidine [Pepcid] 20 mg PO BID PRN PRN tab 02/17/18 [Rx Confirmed 03/09/18] Insulin Lispro [Humalog KwikPen] See Protocol SUBCUT ACHS insuln.pen 02/17/18 [Rx Confirmed 03/09/18] Loratadine [Claritin] 10 mg PO DAILY tab 02/17/18 [Rx Confirmed 03/09/18] Rizatriptan Benzoate [Maxalt] 10 mg PO X1 PRN tab 02/17/18 [Rx Confirmed 03/09/18] proMETHazine tablet [Phenergan tablet] 25 mg PO 4X/DAY PRN PRN #30 tab 02/17/18 [Rx Confirmed 03/09/18] Hydrocodone/Acetaminophen [Hydrocodon-Acetaminophen 5-325] 1 ea PO Q4H PRN PRN 03/09/18 [History Confirmed 03/09/18] Cyclobenzaprine [Flexeril] 10 mg PO TID PRN #20 tab 03/17/18 [Rx] Is last menstrual period known: Yes Post menopausal: No Patient : No PFSH Medical History Acid reflux disease (Acute) Anxiety (Acute) Arthritis (Acute) Asthma (Acute) Back problem (Acute) Bladder infection (Acute) Chronic headaches (Acute) Diabetes (Acute) Fracture of orbital floor, blow-out, right, closed (Acute) Gallstones (Acute) Hearing problem (Acute) Rheumatoid arteritis (Acute) Seasonal allergies (Acute) Vision problems (Acute) Surgical History Closed fracture of right orbital floor (Acute) H/O section (Acute) History of cholecystectomy (Acute) History of nasal septoplasty (Acute) Family History Unknown No problems noted. Social History Smoking Status: Current every day smoker second hand exposure: Yes alcohol intake: former substance use type: does not use what type of physical activity do you participate in: walking seatbelt use: always additional social history: SUN EXPOSURE: FREQUENTLY HPI post op surgery 02/16/18: Details: Postop visit from her recent surgery on 02/16/18 where she underwent repair internal nasal vestibular stenosis with placement bilateral cartilage biological technician grafts from the right ear and septal dermatoplasty reconstruction with placement dorsal cartilage strut graft from the left ear and placement PDS plate graft. Patient comes in today with with complaints of pain behind right posterior ear. On exam, there is a small separation in the incision on the right posterior ear. It appears superficial into the dermis and measures 1 cm. No exposed cartilage seen. Obtained a wound culture today. A positive culture will necessitate antibiotic therapy. Started Silver dressings to the wound which the patient will continue on a daily basis. Left ear incision is healing satisfactory. No clinical evidence of hematoma bilaterally. She is being careful not to bump her nose. She has good nasal contour. She is breathing ok. Keep head elevated. No heavy lifting. Followup 2 weeks. Encouraged patient to stop smoking as it may have deleterious effects on wound healing. She will need to stop smoking before proceeding with repair of her septal perforation in the future. Assessment AND Plan Problems 1. Airway obstruction, anatomic J98.8 2. Dyspnea R06.00 3. Other specified disorders of nose and nasal sinuses J34.89 4. Nasal septal perforation J34.89 5. Fracture of orbital floor, right side, sequela S02.31XS 6. Nonhealing surgical wound T81.89XA 7. Smoker F17.200 Orders Orders: Coding Level of Care Code Global Post Op Diagnoses Airway obstruction, anatomic J98.8 Dyspnea R06.00 Other specified disorders of nose and nasal sinuses J34.89 Nasal septal perforation J34.89 Fracture of orbital floor, right side, sequela S02.31XS Nonhealing surgical wound T81.89XA Smoker F17.200 03/23/182008 <Electronically signed by Gunjan Aleman [employer] LICENSEE-C> Date Gunjan Aleman [employer] LICENSEE-C 03/23/18 1345<Electronically signed by Roberto Holden MD> Cosigner Signature: Date (if applicable) Roberto Holden MD CC: Observed: 03/18/2018 Status: F Source: [place] CULTURE, WOUND 5:15 PM [facility] REPOSITORY Comments: Right posterior ear suture line Gram Stain Gram Stain No organisms seen No cells seen Wound Culture Possible skin contamination, further Identification and sensitivity will be performed only by physician's request. ORGANISM 1: Coag Negative Staph Amount Growth 1+ Performed By: #### M100.1400 #### [facility] [address] [place], [address] EMERGENCY DEPARTMENT Observed: 03/18/2018 Status: F Source: [place] SUMMARY 12:03 AM [facility] REPOSITORY [facility] Medical Records Department [address] [place] [address] Emergency Department Summary 03/17/18 1622 MR#: [id number] Acct: [id number] Name: COLLEEN MILIAN Rep #: [id number] : 1975 42 From: Alda Hubbard MD PCP: Timmy Park MD Status: DEP ER - ER Visit Summary Date of Service: 03/17/18 Chief Complaint: Back pain History of Present Illness: The patient is a 42 F presenting with back pain. Patient states she fell down a flight of stairs 8 days ago. She was seen in the ED at that time. She had x-rays of her back and left hip at that time. She states she continues to have back pain. She states she intermittently has right hip pain as well. When she fell she did not hit her head or lose consciousness. She has been taking ibuprofen at home. She states the pain is worse with prolonged standing or walking. She also complains of pain behind her right ear. She had surgery on 02/16/[address] Holden. She has an appointment for follow-up tomorrow. Denies other complaints. Physical Examination: Vitals are stable. Patient is afebrile. Alert no acute distress. HEENT exam scabbing behind right ear, no erythema or drainage Neck is supple. Lungs are clear and equal bilaterally. Heart is regular rate and rhythm. Abdomen is soft nontender nondistended. Back: Bilateral paraspinal lumbar muscle tenderness with no midline tenderness. Negative straight leg raise Extremities mild bilateral hip tenderness, active full range of motion. Normal distal pulses Skin is warm and dry. No focal neurologic deficit. Remainder of exam is unremarkable. Emergency Department Course and Treatment: Patient was given Toradol, Norflex IM. Right hip x-ray shows no acute process. Patient is given Flexeril. She is advised to follow-up with her primary care physician. Advised return to ED if worsening complaints. Disposition: Discharge home Impression: Lumbar strain, bilateral hip contusion This note was generated with Dragon dictation software. It may contain incorrect words, spelling, and punctuation that were not noted in review of the chart prior to signing ED Disposition - Plan for ED Patient: Chief Complaint: Back Instructions: ED Sprain Strain Lumbar Prescriptions: Cyclobenzaprine [Flexeril] 10 mg PO TID PRN #20 tablet PRN Reason: Muscle Spasm Referrals: Timmy Park MD [Primary Care Provider] - What to do if you have Problems For any increased pain, shortness of breath, bleeding, nausea or vomiting, chest pain, or any unexpected problems, contact your Primary Care Provider. Call [facility] ([phone]) or report to the closest Emergency Room. Call 911 if necessary. 03/18/18 0003 <Electronically signed by Alda Hubbard MD> Date Alda Hubbard MD Cosigner Signature (If Indicated): Date CC: Timmy Park MD DISCHARGE INSTRUCTION Observed: 03/17/2018 Status: F Source: [place] 5:41 PM [facility] REPOSITORY [facility] Medical Records Department [address] [place] [id number] Discharge Instruction 03/17/18 1740 MR#: [id number] Acct: [id number] Name: COLLEEN MILIAN Rep #: [id number] : 1975 42 From: Alda Hubbard MD PCP: Timmy Park MD Status: REG ER ED Disposition - Plan for ED Patient: Chief Complaint: Back Instructions: ED Sprain Strain Lumbar Prescriptions: Cyclobenzaprine [Flexeril] 10 mg PO TID PRN #20 tablet PRN Reason: Muscle Spasm Referrals: Timmy Park MD [Primary Care Provider] - What to do if you have Problems For any increased pain, shortness of breath, bleeding, nausea or vomiting, chest pain, or any unexpected problems, contact your Primary Care Provider. Call [facility] ([phone]) or report to the closest Emergency Room. Call 911 if necessary. 03/17/18 8141 <Electronically signed by Alda Hubbard MD> Date Alda Hubbard MD Cosigner Signature (If Indicated): Date CC: Timmy Park MD HIP, UNI W/ PELVIS Observed: 03/17/2018 Status: F Source: [place] 2-3 VIEWS 4:21 PM [facility] REPOSITORY [facility] Imaging Services [address] [place] [address] HIP, UNI W/ Pelvis 2-3 Views MR#: [id number] Acct: [id number] Name: COLLEEN MILIAN Rep #: [id number] : 1975 F 42 From: Roldan Christine MD PCP: Timmy Park MD Status: REG ER Study: HIP, UNI W/ Pelvis 2-3 Views Date of Exam: 03/17/18 Exam# [id number] Ordering Dr: Alda Hubbard MD STUDY: X-RAY - RIGHT HIP REASON FOR EXAM: Female, 42 years old. Fall one week ago, still having right hip pain. TECHNIQUE: Frontal pelvis, frontal and frog-leg lateral right hip. COMPARISON: None. FINDINGS: Central pelvic IUD. Pelvic phleboliths. Mild low lumbar scoliosis. Normal appearance of the bony pelvis and sacrum including pubic rami. Normal symmetric appearance of the hip joints bilaterally without degeneration. Proximal right femur intact. Periarticular soft tissues normal. RAD/HIP, UNI W/ Pelvis 2-3 Views IMPRESSION: No radiographic evidence of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 Gunjan WANG> Cosigner Signature: Date (if applicable) Gunjan Aleman CC: 12 LEAD ELECTROCARDIOGRAM Observed: 02/26/2018 Status: F Source: [place] 9:20 AM [facility] Cardiovascular Services [address] [place] [address] 12 Lead EKG 02/16/18 0810 MR#: [id number] Acct: [id number] Name: COLLEEN MILIAN Rep #: [id number] : 1975 42 From: Demetri Sequeira MD Attending Dr: Clarke Blackmon MD Status: [facility] Ordering Dr: Perez Denis MD Date: 02/16/18 Location: [facility] Sex: F C Admitted: Test Reason : PRE OP Blood Pressure : / mmHG Vent. Rate : 087 BPM Atrial Rate : 087 BPM P-R Int : 152 ms QRS Dur : 072 ms QT Int : 372 ms P-R-T Axes : 042 -08 028 degrees QTc Int : 447 ms Normal sinus rhythm Normal ECG When compared with ECG of 29-APR-2017 05:26, No significant change was found Confirmed by DEMETRI SEQUEIRA MD ([id number]), food expeditor KERLINE MILINA ([id number]) on 02/19/2018 2:29:38 PM Referred By: Roberto Holden Confirmed By:DEMETRI SEQUEIRA MD 02/19/18 1429 Date Demetri Sequeira MD CC: Perez Denis MD; Roberto Holden MD; Clarke Blackmon MD; Timmy Park MD Signed OPERATIVE REPORT Observed: 02/19/2018 Status: F Source: [place] 12:51 PM [facility] Medical Records Department [address] [place] [address] Operative Report 02/16/18 1905 MR#: [id number] Acct: [id number] Name: COLLEEN MILIAN Rep #: [id number] : 1975 42 From: Roberto Holden MD PCP: Timmy Park MD Status: [facility] Y Location: [facility] Report of Operation Date of Procedure: 02/16/18 Pre-Operative Diagnosis: 1. Nasal airway obstruction with difficulty breathing. 2. Recurrent internal nasal valve vestibular stenosis. 3. Nasal septal perforation. 4. Right orbital floor blowout fracture repair, sequela. 5. Smoker. Post-Operative Diagnosis: Same. Surgery/Procedure Performed:: 1. Repair internal nasal vestibular stenosis with placement bilateral cartilage biological technician grafts from the right ear. 2. Septal dermatoplasty reconstruction with placement dorsal cartilage strut graft from the left ear and placement PDS plate graft. Description of Surgical Findings:: 42 year old woman comes in with complaints of difficulty breathing from the left side of her nose. She initially had a right orbital floor blowout fracture that was repaired in 11/12. 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 On 04/28/17, she underwent septoplasty with submucous resection and repair of internal nasal vestibular stenosis with placement of bilateral cartilage biological technician 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 Postop she did well initially until recently when she started developing breathing difficulties from the left side of her nose. She denies any trauma. She denies any epistaxis, discharge, crusting, dryness, or whistling. She has some intermittent discomfort. She goes to the pain center for low back pain and she gets Neurontin from their office. She states that when she pulls on her cheeks that spreads the nose a little bit and she is able to breathe a little easier. She has no visual complaints. When I saw her in October, I noted a nasal septal perforation which is contributing to her symptomatology. A CT was done on 11/26/17 which noted the nasal septal perforation. Patient was informed of the risks and complications of the procedure including alternatives to surgery. These were discussed with the patient personally. Patient voices understanding and wishes to proceed. Some of the risks and complications were included in a form from the [employer]. Encouraged patient to stop smoking as it may have deleterious effects on wound healing. The patient's Nicotine level was highly positive. The patient stated that she could not stop smoking. Therefore, I will be conservative with my surgery today because of the risk of suboptimal healing secondary to the effects of smoking. I was contemplating the use of FAMM flaps to repair the septal perforation. However I would prefer to wait until she stops smoking before proceeding with this type of flap, and the same reasoning goes with local mucosal flaps. I may use a nasal septal button prosthesis temporarily until she is able to stop smoking. Patient voices understanding and wishes to proceed and realizes that I may be limited in what I can accomplish today. IV Fluids - 2800 ml. Urine Output - 550 ml. I used Ethicon PDS Flexible Plate Graft, 0.15 mm thick, 5 x 4 cm. Lot Number - [id number]. Expiration - February 26, 2023. mixing and dispensing supervisor: None Type of Anesthesia:: General Specimen's removed: None. Drains: None. Estimated Blood Loss (mL): 150 ml. Fluids Replaced: 3350 ml (IV Fluids 2800 ml, Urine Output 550 ml). Description of Procedure: The patient was taken to the operating room and in the supine position, she was placed under general anesthesia and her face was prepped and draped in the usual fashion. SCDs were placed for DVT prophylaxis. Perioperative antibiotics were given intravenously. A francois catheter was placed. Procedure was performed under loupe magnification and headlight illumination. I then made a stair-step marking on the proximal portion of the columella through the previous scar after infiltrating with Xylocaine and epinephrine. I also infiltrated the nasal septum with Xylocaine and epinephrine. I then placed Teja-Synephrine on cottonoid pledgets into both nasal passages to help with vasoconstriction. I used 4 cottonoid pledgets for each nostril. After waiting for 10 minutes for the anesthetic to take effect, the cottonoid pledgets were then removed and there were 4 removed from each nasal passage. I then made a stair-step incision in the columella down through the subcutaneous tissue until the medial crura of the lower lateral cartilage was seen. I then dissected up toward the middle crura. I then made an infracartilaginous incision into both nasal passages around the inferior aspect of the lower lateral cartilages, and I was then able to free up the dorsal nasal skin with an open rhinoplasty approach. It was tedious dissection from previous surgical scarring. I dissected the lower lateral cartilage away from the soft tissue until I got access to the septum as well as the upper lateral cartilages. The previous cartilage biological technician graft was intact on the right but barely present on the left. This could explain some of her breathing problems. I suspect suboptimal healing with cartilage absorption from inadequate local blood supply from her history of smoking. The upper lateral cartilages were distorted at the past procedure and were in better position today. I then dissected some of the mucoperichondrium off the septum to create a pocket for additional cartilage biological technician grafts. It was noted that the dorsal cartilage strut of the septum was weakened possibly from the effects of the septal perforation but once again from the effects of her smoking. I needed to reconstruct the dorsal cartilaginous strut of the septum. The proximal portion was intact. The caudal septal strut was intact. I removed the previous cartilage biological technician graft on the right to get exposure for the septal repair. Ideally a rib graft would be used for this purpose. However at our [facility] there is no Thoracic Surgeon available in case there are bleeding issues with obtaining the rib graft. Therefore will proceed with obtaining a cartilage graft from the left ear today. In the future if the patient still has healing issues, then she would need to be evaluated at a tertiary center where Thoracic Surgery is available in order to have a rib graft done. The patient has a small ear, so I made an incision on the posterior aspect of the left ear down to the cartilage. A rectangular piece of cartilage was harvested from the jean pierre. It measured 2 x 1 cm. It was placed in a blood soaked sponge. Hemostasis was obtained with electrocautery. The incision was closed with 5-0 Monocryl vertical mattress interrupted sutures. Antibiotic ointment was applied to the anterior and posterior aspect of the ear followed by moistened cotton ball and secured with 3-0 Nylon suture to minimize hematoma. I used the ear cartilage as a dorsal strut graft to reconstruct the dorsal septum. It was secured to the proximal portion of the dorsal septum with 5-0 VIcryl horizontal mattress interrupted sutures and to the caudal septum with 5-0 Vicryl horizontal mattress interrupted sutures. I re-enforced the cartilage graft with a piece of PDS plate graft and secured it to the cartilage graft repair with 6-0 PDS interrupted sutures. Good septal stability was noted. The addition of cartilage biological technician grafts will also further stabilize the septal reconstruction as well. These cartilage biological technician grafts were obtained from the right ear. Once again, I made an incision on the posterior aspect of the right ear down to the cartilage. A rectangular piece of cartilage was harvested from the jean pierre. It measured 2 x 1 cm. It was placed in a blood soaked sponge. Hemostasis was obtained with electrocautery. The incision was closed with 5-0 Monocryl vertical mattress interrupted sutures. Antibiotic ointment was applied to the anterior and posterior aspect of the ear followed by moistened cotton ball and secured with 3-0 Nylon suture to minimize hematoma. I split the cartilage in half to be used bilaterally. The cartilage biological technician grafts were secured with 5-0 Vicryl horizontal mattress sutures. I then stabilized the caudal septum on the midline by securing the medial crura of the lower lateral cartilages to the caudal edge of the nasal septum using 6-0 PDS simple interrupted suture. The lower lateral cartilages were approximated together at the dome level with 6-0 PDS suture. This improved the shape and contour of her nasal tip. I then irrigated out the wounds with saline. I then closed the stair-step incision on the columella using 5-0 Monocryl interrupted sutures for deep dermis and subcutaneous tissue. The skin was approximated using 6-0 Prolene simple interrupted sutures. The infracartilaginous incision was then approximated using 5-0 chromic simple interrupted sutures. I then placed Vaseline nasal packing along with antibiotic ointment into both nasal passages. I first irrigated out both nasal passages for any residual blood. I also suctioned out any residual blood as well. I then placed a dorsal nasal splint for stability for a few days. This was placed on the dorsum of the nose after placing Steri-Strips first on the skin. I then used a 2 x 2 gauze to help absorb any oozing from the nasal passages and packing postoperatively. The patient tolerated the procedure well and will be sent to recovery room in satisfactory condition. I didn't put the nasal septal button prosthesis in to temporarily close the perforation because of the need for the dorsal cartilaginous strut graft reconstruction. I want the septal reconstruction to heal properly before deciding on further operative management for her septal perforation. She will be sent upstairs for surgical observation overnight stay in the hospital. Once she is tolerating po analgesia, she will be sent home on antibiotics and pain medicine. She will follow up in the office next week for removal of the nasal packing, and at that point, she will continue to wear the dorsal nasal splint for 2 weeks all the time and then for an additional 2 weeks just at night. This will be reminded to the patient to take it easy during the initial postoperative period to minimize trauma to the nose to allow proper healing. She will keep her head elevated during the initial postoperative period and be on a lifting restriction. Anticipate she will get some swelling around her eyes and she can apply cold compresses as needed for periorbital swelling. The nasal columellar sutures will be removed in a week or two. Once again it will be reiterated to the patient postoperatively about the importance of not smoking for proper healing. If she has trouble stopping smoking, and if she develops continued issues and goes to a tertiary center for evaluation, they will probably hold off on any complex nasal septal reconstruction in the future until she does stop smoking. Grafts/Implants Used: PDS Plate Graft. - Complications None. - Admit VTE Documentation VTE Present on Admission: No VTE Mechan Device Prophylaxis: SCD's VTE Pharm Prophylaxis ordered?: Yes Code Visit Surgery Charges CPT - 71700 ICD-10 - J98.8, J34.89, R06.00, S02.31xS, F17.200 89059 J98.8, J34.89, R06.00, S02.31xS, F17.200 33868 J34.89, J98.8, R06.00, S02.31xS, F17.200 11874 J34.89, J98.8, R06.00, S02.31xS, F17.200 02/19/18 1251 <Electronically signed by Roberto Holden MD> Date Roberto Holden MD CC: Perez Denis MD; Ryann Castañeda; Roberto Holden MD; Timmy Park MD Signed HISTORY AND PHYSICAL Observed: 02/19/2018 Status: F Source: [place] EXAM 2:15 AM [facility] Medical Records Department [address] [place] [id number] History and Physical 02/16/18 0014 MR#: [id number] Acct: [id number] Name: COLLEEN MILIAN Rep #: [id number] : 1975 42 From: Roberto Holden MD PCP: Timmy Park MD Status: [facility] Y Location: [facility] History and Physical Date of Admission: 02/16/18 Allergies bee venom protein (honey bee) Allergy (Verified 12/17/17 15:16) Angioedema mold Allergy (Verified 12/17/17 15:16) Itching naproxen Allergy (Verified 12/17/17 15:16) Unknown venom-honey bee [bee venom (honey bee)] Allergy (Verified 12/17/17 15:16) Swelling amoxicillin Adverse Reaction (Verified 12/17/17 15:16) Upset Stomach guaifenesin [From Robitussin] Adverse Reaction (Verified 12/17/17 15:16) Nausea Medications Ranitidine [Zantac] 150 mg PO BID PRN 12/30/13 [History Confirmed 10/10/17] Epinephrine [Epi Pen] 0.3 mg IM X1 PRN 10/31/15 [History Confirmed 10/10/17] Escitalopram Oxalate [Lexapro] 30 mg PO DAILY 11/24/15 [History Confirmed 10/10/17] DiphenhydrAMINE [Benadryl] 25 mg PO TID PRN PRN #20 cap 02/24/16 [Rx Confirmed 10/10/17] Fluticasone 0.05% [Flonase Nasal [place]] 1 spray NASAL DAILY 05/01/16 [History Confirmed 10/10/17] Albuterol Inhaler [Ventolin Hfa] 1 - 2 puff INHALATION Q4H PRN PRN 06/13/16 [History Confirmed 10/10/17] Ibuprofen [Motrin] 800 mg PO TID PRN PRN #20 tab 07/20/16 [Rx Confirmed 10/10/17] Gabapentin [Neurontin] 300 mg PO TID 07/25/16 [History Confirmed 10/10/17] Albuterol Aerosols [Ventolin Aerosols] 2.5 mg INHALATION Q4H PRN PRN #30 vial 08/05/16 [Rx Confirmed 10/10/17] Acetaminophen [Tylenol Extra Strength] 500 - 1,000 mg PO Q6H PRN PRN 04/18/17 [History Confirmed 10/10/17] Aspirin/Acetaminophen/Caffeine [Excedrin Migraine Caplet] 1 ea PO PRN PRN 04/27/17 [History Confirmed 10/10/17] Insulin Aspart [Novolog Flexpen] See Protocol SC ACHS #1 flexpen 04/30/17 [Rx Confirmed 10/10/17] Metformin HCl [Glucophage] 500 mg PO BIDCM #60 tab 04/30/17 [Rx Confirmed 10/10/17] Docusate Sodium [Colace] 100 mg PO BID #60 cap 05/01/17 [Rx Confirmed 10/10/17] Atorvastatin Calcium [Lipitor] 10 mg PO QHS 10/10/17 [History Confirmed 10/10/17] Cetirizine HCl [Zyrtec] 10 mg PO DAILY 10/10/17 [History Confirmed 10/10/17] Diclofenac [Voltaren] 75 mg PO BIDCM 10/10/17 [History Confirmed 10/10/17] Insulin Detemir [Levemir FlexPen] 27 units SUBCUT QHS 10/10/17 [History Confirmed 10/10/17] Pramipexole Di-HCl [Mirapex] 0.125 mg PO QHS 10/10/17 [History Confirmed 10/10/17] PFSH Medical History Acid reflux disease (Acute) Anxiety (Acute) Arthritis (Acute) Asthma (Acute) Back problem (Acute) Bladder infection (Acute) Chronic headaches (Acute) Diabetes (Acute) Fracture of orbital floor, blow-out, right, closed (Acute) Gallstones (Acute) Hearing problem (Acute) Rheumatoid arteritis (Acute) Seasonal allergies (Acute) Vision problems (Acute) Surgical History Closed fracture of right orbital floor (Acute) H/O section (Acute) History of cholecystectomy (Acute) History of nasal septoplasty (Acute) Family History Unknown No problems noted. Social History Smoking Status: Current every day smoker second hand exposure: Yes alcohol intake: former substance use type: does not use what type of physical activity do you participate in: walking seatbelt use: always additional social history: SUN EXPOSURE: FREQUENTLY HPI evaluation breathing difficulty left side of nose: HISTORY OF PRESENT ILLNESS 42 year old woman comes in with complaints of difficulty breathing from the left side of her nose. She initially had a right orbital floor blowout fracture that was repaired in 11/12. 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 On 04/28/17, she underwent septoplasty with submucous resection and repair of internal nasal vestibular stenosis with placement of bilateral cartilage biological technician 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 Postop she did well initially until recently when she started developing breathing difficulties from the left side of her nose. She denies any trauma. She denies any epistaxis, discharge, crusting, dryness, or whistling. She has some intermittent discomfort. She goes to the pain center for low back pain and she gets Neurontin from their office. She states that when she pulls on her cheeks that spreads the nose a little bit and she is able to breathe a little easier. She has no visual complaints. When I saw her in October, I noted a nasal septal perforation which is contributing to her symptomatology. A CT was done on 11/26/17 which noted the nasal septal perforation. She presents at this time for further evaluation and treatment. REVIEW OF SYSTEMS General -Denies fever, fatigue and weight loss. Eyes-denies eye pain. ENT -Denies nasal congestion and sore throat. Has difficulty breathing out of the left side of her nose. Denies epistaxis, discharge, crusting, dryness, and whistling. Has a nasal septal perforation. CV -Denies chest pain or discomfort, fatigue, lightheadedness and shortness of breath with exertion. Resp -Denies cough and shortness of breath. Has difficulty breathing out of the left side of her nose. pt is a current smoker. GI -Denies nausea, vomiting, diarrhea and constipation. -Denies blood in urine and urinary frequency. MS -Denies joint pain, joint swelling, back pain, stiffness, muscle weakness and arthritis. Derm -Denies skin cancer and rash. Neuro -Denies headaches and weakness. Psych -Denies anxiety and depression. Endo -Denies excessive urination and excessive thirst. Heme -Denies bleeding and abnormal bruising. PHYSICAL EXAMINATION General: -well developed, well nourished, in no acute distress. HEENT: PERRL/EOM intact, conjunctiva and sclera clear. No facial swelling. No bony tenderness. No dorsal deviation. Nancy maneuver is positive mostly on the left side suggesting internal nasal valve vestibular stenosis from scarring or trauma. In the mid-portion of the septum, there is a septal perforation, between 1.5-2 cm. No septal deviation noted. There is some weakening and mild collapse of the dorsal septum secondary to the presence of the nasal septal perforation. She is missing a lot of teeth. There are no obvious occlusion irregularities. Throat is clear. Neck: -no masses, thyromegaly, or abnormal cervical nodes. Lungs: -clear bilaterally to auscultation. Heart: -regular rate and rhythm. Pulses: -Radial pulses palpable Extremities: -no clubbing, cyanosis, edema, or deformity noted with normal full range of motion of all joints. Neurologic: -cranial nerves II-XII grossly intact. Skin: -no rashes Cervical Nodes: -no significant adenopathy. Axillary Nodes: -no significant adenopathy. Psych: -alert and cooperative; normal mood and affect. ASSESSMENT 1. Nasal airway obstruction with difficulty breathing. 2. Recurrent internal nasal valve vestibular stenosis. 3. Nasal septal perforation. 4. Right orbital floor blowout fracture repair, sequela. 5. Smoker. PLAN CT reviewed. It showed the nasal septal perforation. She has recurrent internal nasal valve vestibular stenosis with a decrease in the angle secondary to either scarring and/or trauma. The Nancy maneuver was positive which is lateral traction on the cheek leading to increased airflow. Sometimes the swelling from the face fracture and the swelling from the repair of the facial fracture can lead to scarring in this area as well as previous surgical repair of her internal nasal valve vestibular stenosis. To help with her breathing difficulties, she may need additional complex nasal reconstruction with placement of additional cartilage biological technician grafts to help increase the internal nasal valve angle a little bit to help to increase airflow by decreasing the turbulence secondary to scarring and trauma and improve the internal nasal vestibular stenosis. The placement of additional cartilage grafts should help stabilize the weakening of the dorsal septum and improve the mild collapse of the dorsal septum with a septal dermatoplasty. Will obtain the cartilage grafts from the ear. For additional reinforcement, placement of PDS plate graft may be used. Will assess the septal perforation during surgery. The patient is having mild symptomatology. Some surgical options for repair include mucosal flaps, biologic grafts (i.e., Alloderm), nasolabial flaps, fascial grafts, skin grafts and FAMM flaps. Also a nasal septal prosthesis button may be needed as well. This nasal reconstruction surgery will be done under general anesthesia with a possible surgical observation overnight stay. The patient was informed of the risks and complications of the procedure including alternatives to surgery. These were discussed with her personally. She voices understanding and wishes to proceed. Some of the risks and complications were included in a form from the [employer]. Patient is aware that with further surgery, she will have a dorsal nasal splint for a few weeks and nasal packing for a few days. Encouraged the patient to stop smoking as it may have deleterious effects on wound healing. Will check a nicotine level preoperatively. She is aware that despite complex nasal reconstruction, nasal septal perforations can develop healing issues and recur. She is aware of that possibility and wishes to proceed. That is why I want to maximize her healing chances by having her stop smoking prior to surgery. 02/19/18 0215 <Electronically signed by Roberto Holden MD> Date Roberto Holden MD Cosigner Signature: Date (if applicable) CC: Roberto Holden MD; Timmy Park MD Signed DISCHARGE INSTRUCTION Observed: 02/17/2018 Status: F Source: RACHANA 1:28 PM [facility] REPOSITORY [facility] Medical Records Department [address] [place] [address] Instructions for Home/Discharge Instructions 02/17/18 1323 MR#: [id number] Acct: [id number] Name: COLLEEN MILIAN Rep #: [id number] : 1975 42 From: Roberto Holden MD PCP: Timmy Park MD Status: REG SDC You will use the following diet at home:: Calorie/Carbohydrate Controlled (specify 1200, 1400, etc) Discharge Activity: May not drive while taking narcotic pain medications., May Shower - in two days. May shower in (days): 2 May resume sexual activity in: 10-14 days Ice area for (Minutes): 5 - as needed for facial swelling. Weight Bearing Status: Weight bearing as tolerated Lifting Restrictions: 10 lbs. Keep extremity elevated above heart level: - - elevate head. Call your doctor if your incision/area has: Continuous Slow Oozing, Sudden Increased Bleeding, Increased Pain/ Swelling, Increased Redness, Foul Smelling Discharge, Swelling at the incision site Call your doctor if you observe: Fever of 101 or Higher - if fever, go to the ED. The packing will need to be removed and IV antibiotics started., Coldness, Increased Pain, Shortness of breath, Chest pain, Calf discomfort, Uncontrolled pain Suture Line Care: - - apply antibiotic ointment to suture line to columellar area daily. Remove Dressing in (days):: 7 - will remove nasal packing next week. If fever then go to ED for removal of the packing and starting IV antibiotics. Cleanse incision/area with: Soap AND Water - may cleanse the incision with soap and water at the time of her shower., - Allergies/Adverse Reactions: Allergies bee venom protein (honey bee) Allergy (Verified 02/16/18 07:58) Angioedema mold Allergy (Verified 02/16/18 07:58) Itching naproxen Allergy (Verified 02/16/18 07:58) Unknown venom-honey bee [bee venom (honey bee)] Allergy (Verified 02/16/18 07:58) Swelling amoxicillin Adverse Reaction (Verified 02/16/18 07:58) Upset Stomach guaifenesin [From Robitussin] Adverse Reaction (Verified 02/16/18 07:58) Nausea Medications to take at Discharge Ranitidine [Zantac] 150 mg PO BID PRN 12/30/13 Epinephrine [Epi Pen] 0.3 mg IM X1 PRN 10/31/15 Escitalopram Oxalate [Lexapro] 20 mg PO DAILY 11/24/15 DiphenhydrAMINE [Benadryl] 25 mg PO TID PRN PRN #20 cap 02/24/16 Albuterol Inhaler [Ventolin Hfa] 1 - 2 puff INHALATION Q4H PRN PRN 06/13/16 Gabapentin [Neurontin] 400 mg PO TID 07/25/16 Albuterol Aerosols [Ventolin Aerosols] 2.5 mg INHALATION Q4H PRN PRN #30 vial 08/05/16 Insulin Aspart [Novolog Flexpen] See Protocol SC ACHS #1 flexpen 04/30/17 Atorvastatin Calcium [Lipitor] 10 mg PO QHS 10/10/17 Insulin Detemir [Levemir FlexPen] 27 units SC QHS 10/10/17 Pramipexole Di-HCl [Mirapex] 0.125 mg PO QHS 10/10/17 Acetaminophen [Tylenol Arthritis] 650 mg PO Q8H PRN PRN 02/09/18 Diclofenac Sodium [Voltaren] 0 gm TOPICAL PRN PRN 02/09/18 Hydrochlorothiazide 12.5 mg PO DAILY 02/09/18 Loperamide HCl [Imodium A-D] 2 mg PO PRN PRN 02/09/18 Metformin HCl [Glucophage] 500 mg PO BIDCM 02/09/18 Multivitamin [Multiple Vitamins] 1 each PO BID 02/09/18 Sumatriptan Succinate [Imitrex] 50 mg PO .X1 PRN PRN 02/09/18 buPROPion tablets [Wellbutrin tablets] 0.5 tab PO BID 02/09/18 Clindamycin HCl [Cleocin] 300 mg PO TID #30 cap 02/17/18 Docusate Sodium [Colace] 100 mg PO BID PRN PRN #60 cap 02/17/18 Famotidine [Pepcid] 20 mg PO BID PRN PRN tablet 02/17/18 Insulin Lispro [Humalog KwikPen] See Protocol SC ACHS insuln.pen 02/17/18 Loratadine [Claritin] 10 mg PO DAILY tablet 02/17/18 Oxycodone HCl/Acetaminophen [Percocet 5/325] 1 - 2 tab PO 4X/DAY PRN PRN 5 Days #40 tab 02/17/18 Rizatriptan Benzoate [Maxalt] 10 mg PO X1 PRN tablet 02/17/18 proMETHazine tablet [Phenergan tablet] 25 mg PO 4X/DAY PRN PRN #30 tab 02/17/18 The following prescriptions were given: Docusate Sodium [Colace] 100 mg PO BID PRN PRN #60 cap PRN Reason: Constipation Oxycodone HCl/Acetaminophen [Percocet 5/325] 1 - 2 tab PO 4X/DAY PRN PRN 5 Days #40 tab PRN Reason: Pain proMETHazine tablet [Phenergan tablet] 25 mg PO 4X/DAY PRN PRN #30 tab PRN Reason: NAUSEA/VOMITING Clindamycin HCl [Cleocin] 300 mg PO TID #30 cap Orders to be completed after discharge: Nicotine Screen Blood Time Frame: 02/16/18, Location: Laboratory Primary Care Physician: Timmy Park MD [Primary Care Provider] - Test Results: Test results from this visit will be discussed in further detail at your follow-up appointment, if applicable. Please Follow Up With: Roberto Holden MD When: one week. call [phone] for appt. Proposed Discharge Date: 02/17/18 02/17/18 1328 <Electronically signed by Roberto Holden MD> Date Roberto Holden MD CC: Perez Denis MD; Ryann Castañeda; Timmy Park MD BEDSIDE GLUCOSE Collected: 02/17/2018 Status: F Source: R[place] 11:49 AM [facility] REPOSITORY TYPE CODE TESTS RESULT OUT OF REFERENCE UNITS RANGE LAB L501.080 70-110 mg/dL High BEDSIDE GLU 305 Result Comment: MANAGEMENT OF PATIENT CARE PER NURSING PROTOCOL Performed By: #### L501.080 #### [facility] Point of Care [address] [place] [address] BEDSIDE GLUCOSE Collected: 02/17/2018 Status: F Source: [place] 6:24 AM [facility] REPOSITORY TYPE CODE TESTS RESULT OUT OF REFERENCE UNITS RANGE LAB L501.080 70-110 mg/dL High BEDSIDE GLU 276 Result Comment: MANAGEMENT OF PATIENT CARE PER NURSING PROTOCOL Performed By: #### L501.080 #### [facility] Point of Care [address] [place] [address] BEDSIDE GLUCOSE Collected: 02/16/2018 Status: F Source: R[place]NA 9:56 PM [facility] REPOSITORY TYPE CODE TESTS RESULT OUT OF REFERENCE UNITS RANGE LAB L501.080 70-110 mg/dL High BEDSIDE GLU 171 Result Comment: MANAGEMENT OF PATIENT CARE PER NURSING PROTOCOL Performed By: #### L501.080 #### [facility] Point of Care [address] [place] [address] CONSULTATION Observed: 02/16/2018 Status: F Source: RACHANA 7:16 PM [facility] REPOSITORY [facility] Medical Records Department [address] [place] [address] Consultation 02/16/18 1855 MR#: [id number] Acct: [id number] Name: COLLEEN MILIAN Rep #: [id number] : 1975 42 From: Ryann Castañeda MD PCP: Timmy Park MD Status: REG SD Y Location: MS3 KE450-2 Problem List (1) Nasal septal perforation Status: Chronic (2) Contusion of right eyelid and periocular area, sequela Status: Chronic Comment: right supra-orbital nerve and right supra-trochlear nerve from ophthalmic branch of trigeminal cranial nerve V (3) Fracture of orbital floor, right side, sequela Status: Chronic (4) Airway obstruction, anatomic Status: Chronic (5) Allergic rhinitis Status: Chronic Qualifiers: Allergic rhinitis trigger: unspecified Allergic rhinitis seasonality: unspecified seasonality Qualified Code(s): J30.9 - Allergic rhinitis, unspecified (6) Asthma Status: Chronic Qualifiers: Asthma severity: unspecified severity Asthma persistence: unspecified Asthma complication type: unspecified Qualified Code(s): J45.909 - Unspecified asthma, uncomplicated (7) Diabetes mellitus, type II Status: Chronic Qualifiers: Diabetes mellitus machine long goods helper insulin use: without machine long goods helper use Diabetes mellitus complication status: with unspecified complications Qualified Code(s): E11.8 - Type 2 diabetes mellitus with unspecified complications (8) Migraine Status: Chronic Qualifiers: Migraine type: unspecified Status migrainosus presence: without status migrainosus Intractability: not intractable Qualified Code(s): G43.909 - Migraine, unspecified, not intractable, without status migrainosus (9) Anxiety and depression Status: Chronic (10) Rheumatoid arthritis Status: Chronic Qualifiers: Rheumatoid arthritis location: unspecified site Rheumatoid factor presence: unspecified presence Qualified Code(s): M06.9 - Rheumatoid arthritis, unspecified Reason for Consult Date of Consultation: 02/16/18 Reason for Consultation: Postoperative medical management. 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 This patient has a history of facial trauma with blowout fracture of the right orbital floor and perforation of the nasal septum and she underwent repair on October,. On March,, she underwent septoplasty with repair of the internal nasal vestibular stenosis with placement of bilateral cartilage biological technician grafts from the nasal symptoms. Today, she underwent reconstructive surgery with repair of the internal nasal vestibular stenosis with placement of bilateral cartilage biological technician grafts and septal dermoplasty and this was done for nasal airway obstruction with difficulty breathing and nasal septum perforation as well as sequelae of right orbital floor blowout fracture. At this time, she rated her facial pain as 8 out of 10 in severity. She received pain medication and it is helping. She denies chest pain or shortness of breath. Denied abdominal pain, nausea or vomiting. She has a history of type 2 diabetes mellitus and she has been on insulin and metformin, blood sugar has been under fair control and her most recent hemoglobin A1c was 7.3% 1-week ago. She has a history of depression and anxiety and she has been on Wellbutrin, Lexapro and Mirapex and she has been stable without suicidal or homicidal intentions or ideations. She has a history of bronchial asthma and she has been on pro-air and her asthma has been under control. At this time, her vital signs are stable. Preoperative routine blood work that was done on February 10, totality reviewed and was unremarkable. EKG done today and reveals normal sinus rhythm, normal MS interval, normal QRS and no acute ischemic changes. Past Medical History Past Medical History (Chronic Problems): Chronic Problems (This Medical Record has been edited. Action required.) Nasal septal perforation (Chronic) Contusion of right eyelid and periocular area, sequela (Chronic) right supra-orbital nerve and right supra-trochlear nerve from ophthalmic branch of trigeminal cranial nerve V Trigeminal neuritis (Chronic) right supra-orbital nerve and right supra-trochlear nerve from ophthalmic branch of trigeminal cranial nerve V Fracture of orbital floor, right side, sequela (Chronic) Airway obstruction, anatomic (Chronic) Other specified disorders of nose and nasal sinuses (Chronic) internal nasal valve vestibular stenosis Deviated nasal septum (Chronic) Allergic rhinitis (Chronic) Asthma (Chronic) Diabetes mellitus, type II (Chronic) Migraine (Chronic) Anxiety and depression (Chronic) Rheumatoid arthritis (Chronic) Overweight (BMI 25.0-29.9) (Chronic) Medical History: Medical History (This Medical Record has been edited. Action required.) Acid reflux disease K21.9 Anxiety F41.9 Arthritis M19.90 Asthma J45.909 Back problem M53.9 Bladder infection N30.90 Chronic headaches R51 Diabetes E11.9 Fracture of orbital floor, blow-out, right, closed S02.31XA Gallstones K80.20 Hearing problem H91.90 Rheumatoid arteritis I00 Seasonal allergies J30.2 Vision problems H54.7 Allergies bee venom protein (honey bee) Allergy (Verified 02/16/18 07:58) Angioedema mold Allergy (Verified 02/16/18 07:58) Itching naproxen Allergy (Verified 02/16/18 07:58) Unknown venom-honey bee [bee venom (honey bee)] Allergy (Verified 02/16/18 07:58) Swelling amoxicillin Adverse Reaction (Verified 02/16/18 07:58) Upset Stomach guaifenesin [From Robitussin] Adverse Reaction (Verified 02/16/18 07:58) Nausea Home Medications: Ambulatory Orders Medication Instructions Recorded Ranitidine [Zantac] 150 mg PO BID PRN 12/30/13 Epinephrine [Epi Pen] 0.3 mg IM X1 PRN 10/31/15 Escitalopram Oxalate [Lexapro] 20 mg PO DAILY 11/24/15 Surgical History: Surgical History (This Medical Record has been edited. Action required.) Closed fracture of right orbital floor S02.31XA OPEN REDUCTION RIGHT ORBITAL FLOOR BLOWOUT FRACTURE USING COMBINED APPROACH ( PERIORBITAL AND TRANSANTRAL ) WITH TITANIUM MESH RECONSTRUCTION 11/02/2015 H/O section Z98.891 3 SECTIONS History of cholecystectomy Z98.890, Z90.49 History of nasal septoplasty Z98.890 SEPTOPLASTY WITH SUBMUCOUS RESECTION REPAIR INTERNAL NASAL VESTIBULAR STENOSIS WITH PLACEMENT OF CARTILAGE CONTACT LENS INSPECTOR GRAFT 04/21/2017 Surgical History: cholecystectomy, - - Septoplasty with submucous resection, repair of internal nasal vestibular stenosis with placement of bilateral cartilage biological technician grafts from the nasal septum, cholecystectomy, 3 and 3 C-sections, open reduction right orbital floor blowout fracture using combined approach with periorbital and transantral with titanium placement, mesh reconstruction. Psychiatric History: Anxiety, Depression PSYCHIATRIC NURSE PRACTITIONER History: No pertinent PSYCHIATRIC NURSE PRACTITIONER history Smoking Status: Current some day smoker Tobacco Use: Cigarettes, Chew Alcohol: None Drugs: None - *Family History Maternal Family History: Family History (This Medical Record has been edited. Action required.) Unknown No problems noted. History Items: - - Family history is unknown as she is adopted. Paternal Family History: Family History (This Medical Record has been edited. Action required.) Unknown No problems noted. History Items: - - Family history is unknown as she is adopted. Review of Systems Constitutional: Denies: Anorexia, Chills, Fever, Weakness Eyes: Denies: Blurred vision, Conjunctivae Inflammation, Double vision, Drainage, Redness HEENT: Reports: Ear Pain. Denies: Difficulty Hearing, Eye Pain, Nasal Congestion, Sore Throat Cardiovascular: Denies: Chest Pain, Chest Pressure, Chest Tightness, Heaviness, Light Headedness, Palpitations, Syncope Respiratory: Denies: Cough, Pleuritic Pain, Shortness of Breath, Shortness of breath at rest, Sputum production, Wheezing Gastrointestinal: Denies: Abdominal Pain, Constipation, Diarrhea, Nausea, Vomiting Genitourinary: Denies: Dysuria, Frequency, Hematuria Musculoskeletal: Denies: Arm Pain, Back Pain, Foot Pain Skin: Denies: Dryness, Rash Neurological: Denies: Balance problems, Double vision, Change in Speech, Slurred speech, Confusion, Headaches, Incoordination, Numbness Psychiatric: Reports: Anxiety, Depression Endocrine: Denies: Change in Body Habitus, Polydipsia - Physical Exam General: Alert, Oriented x3, Cooperative, - - She is in moderate pain. HEENT: Atraumatic, PERRLA, EOMI, Normocephalic, - - No cyst dressed. She has surgical sutures on both ears. Oral: Moist Mucosa, No Gingival or Mucosal Lesions/ Ulcerations Neck: Supple, No JVD, Negative Carotid Bruits, Trachea Midline, Thyroid Normal Size and Texture Lungs: Clear to auscultation, No rhonchi, No wheeze, No rales, Diminished Cardiovascular: Regular rate, Regular Rhythm, Normal S1, Normal S2, PMI Normal Abdomen: Bowel Sounds Present, Soft, Non Tender, Non-Distended, No Hepato-splenomegaly Extremities: No clubbing, No cyanosis, No edema Skin: No rashes, No breakdown Lymphatic: No Cervical, Supraclavicular, or Inguinal Adenopathy Neurological: Cranial nerves II-XII grossly intact, Motor Exam 5/5 strength throughout Psych/Mental Status: Normal Affect, Appropriate, Alert and oriented to time, place, person, mood and affect Vital Signs Temp Pulse Resp BP Pulse Ox 99.5 F H 97 18 125/71 H 94 02/16/18 17:56 02/16/18 17:56 02/16/18 17:56 02/16/18 17:56 02/16/18 17:56 Oxygen Flow Rate (L/min) 3 Oxygen Delivery Method Room Air Weight: 147 lb 11.355 oz Body Mass Index (BMI) 27.8 Finger Stick Blood Glucose 351 Intake and Output for Last 24 Hours Intake Total 2860 / 2860 Output Total 660 / 660 Balance 2200 / 2200 Laboratory Tests Past 24 Hrs Urine Cotinine Screen Positive H POC Glucose POC Glucose 169 H Assessment/Plan All Active Problems (This Medical Record has been edited. Action required.) Orbital floor (blow-out) closed fracture (Resolved) This is a 42 years old female patient underwent elective repair of internal nasal fistula stenosis with placement of bilateral cartilage biological technician graft from both ears with dermoplasty reconstruction for nasal airway obstruction and difficulty breathing, nasal septal perforation and sequelae of right orbital floor blowout fracture and I am seeing this patient in consultation for postoperative medical management. #1 status post repair of anterior nasal vestibular stenosis with placement of bilateral cartilage biological technician grafts, septal mammoplasty: This was done for nasal obstruction with difficulty breathing, recurrent anterior nasal vestibular stenosis: Postoperative day 0. She is on IV clindamycin for perioperative prophylaxis. Her vital signs are stable. Preoperative routine blood work and EKG reviewed, unremarkable. Dr. Holden is managing. #2 type 2 diabetes mellitus: Blood sugars seem to be under fair control. Hemoglobin A1c was 7.31-week ago. Plan: Continue home doses of Lantus insulin, continue metformin, start insulin sliding scale, Accu-Cheks. #3 bronchial asthma: Clinically stable, pulse ox is maintained on room air. She is on albuterol as needed. #4 anxiety/depression: Continue Wellbutrin, Lexapro and Mirapex. #5 rheumatoid arthritis: She is not on any long-term treatment. At this time, she is on IV steroids. #6 hyperlipidemia: Continue statins. #7 migraine headaches: Stable, continue Imitrex as needed. #8 DVT prophylaxis: Subcu Lovenox. This note was generated with [employer]ur[employer] dictation software. It may contain incorrect words, spelling, and punctuation that were not noted in checking the note before signing. Code Visit Inpatient E AND M: 11689 Init Hosp L2 02/16/181915 <Electronically signed by Ryann Castañeda MD> Date Ryann Castañeda MD Cosigner Signature (if applicable): Date CC: Perez Denis MD; Roberto Holden MD; Timmy Park MD Signed CBC-COMPLETE BLOOD CNT Collected: 02/16/2018 Status: F Source: RACHANA NO DIFF 6:36 PM [facility] REPOSITORY TYPE CODE TESTS RESULT OUT OF RANGE REFERENCE UNITS LAB L100.1000 4.4-11.0 K/mm3 High WBC 13.1 LAB L100.1200 4.2-5.4 M/mm3 Low RBC 3.73 LAB L100.1300 12.0-15.0 g/dl Low HGB 11.3 LAB L100.1400 37-47 % Low HCT 34.7 LAB L100.1500 81-99 fL Normal MCV 93.0 LAB L100.1600 27.0-32.0 pg Normal MCH 30.3 LAB L100.1700 32-36 g/gl Normal MCHC 32.6 LAB L100.1810 11.6-14.6 % Normal RDW CV 13.5 LAB L100.1820 35.1-43.9 fl High RDW SD 45.0 LAB L100.1900 150-450 K/mm3 Normal PLT 251 LAB L100.2000 6.2-12.0 fl Normal MPV 10.3 Performed By: #### L100.0500 #### [facility] [place], [address] BASIC METABOLIC Collected: 02/16/2018 Status: F Source: RACHANA PROFILE (BMP) 6:36 PM [facility] REPOSITORY TYPE CODE TESTS RESULT OUT OF RANGE REFERENCE UNITS LAB L501.0100 74-106 mg/dL High GLU 187 Result Comment: Fasting Glucose result greater than or equal to 126 mg/dL suggests DIABETES MELLITUS per A.D.A. criteria. Please note revised GLUCOSE reference range effective 2017. LAB L501.1000 7-18 mg/dL Normal BUN 7 LAB L501.1100 0.55-1.02 mg/dL Normal CREAT,SERUM 0.72 Result Comment: The validity of the calculated GFR AND GFRAA in patients over 70 years has not been determined. Clinical correlation is essential. LAB L501.1110 >60 mL/min Normal EST GFR 95 Result Comment: Non- GFR Calc LAB L501.1115 >60 mL/min Normal EST GFR - AA 115 Result Comment: GFR Calc LAB L501.1255 ml/min Normal Estimated CRCL 77.59 LAB L501.1300 10-20 RATIO Low BUN/CRE 9.7 LAB L501.2200 8.5-10 mg/dL Low .1 CA 8.0 LAB L501.5300 136-14 mmol/L Normal 5 NA 139 LAB L501.5600 3.5-5. mmol/L Normal 1 K 3.6 LAB L501.5900 98-107 mmol/L Normal CL 106 LAB L501.6100 21.0-3 mmol/L Normal 2.0 CO2 26.0 LAB L501.6200 5-15 Normal GAP 7 Performed By: #### L500.2500, L506.0500 #### [facility] [address] [place], [address] PREALBUMIN Collected: 02/16/2018 Status: F Source: [place] 6:36 PM [facility] REPOSITORY TYPE CODE TESTS RESULT OUT OF RANGE REFERENCE UNITS LAB L506.0500 20.0-40.0 mg/dL Normal PREALBUMIN 28.7 Performed By: #### L500.2500, L506.0500 #### [facility] [address] [facility] [place], [address] SKULL LESS THAN 4 Observed: 02/16/2018 Status: F Source: [place] VIEWS 4:17 PM [facility] REPOSITORY [facility] Imaging Services [address] [place] [address] Skull less than 4 Views MR#: [id number] Acct: [id number] Name: COLLEEN MILIAN Rep #: [id number] : 1975 F 42 From: Toño Smith MD PCP: Timmy Park MD Status: [facility] Study: Skull less than 4 Views Date of Exam: 02/16/18 Exam# [id number] Ordering Dr: Roberto Holden MD STUDY: X-RAY - SKULL REASON FOR EXAM: Female, 42 years old. Possible foreign body TECHNIQUE: 4 fluoroscopic view(s) of the skull were obtained. COMPARISON: None. FINDINGS: Endotracheal tube noted. No radiopaque foreign body demonstrated. RAD/Skull less than 4 Views IMPRESSION: No retained radiopaque foreign body identified. Electronically Signed: Toño Smith MD at 21:49 EST , Service support , CC: Roberto Holden MD; Timmy Park MD Medical Health Researcher: Signed NICOTINE URINE DRUG Collected: 02/16/2018 Status: F Source: RACHANA SCREEN 8:30 AM [facility] REPOSITORY TYPE CODE TESTS RESULT OUT OF RANGE REFERENCE UNITS LAB L505.6250 TO BE Normal CONFIRMED Result Comment: CONFIRMATORY TESTING FOR ALL POSITIVE URINE DRUG SCREEN RESULTS WILL ONLY BE SENT OUT UPON PHYSICIAN ORDER. The results of Urine Drug Screen methods provide only preliminary analytical test results. A more specific alternate chemical method must be used in order to obtain a confirmed analytical result. Gas chromatography/mass spectrometery (GC/MS) is the preferred confirmatory method. Clinical consideration and professional judgement should be applied to any drug of abuse test result, particularly when preliminary positive results are used. LAB L505.6270 <200 ng/mL High COT DRG Positive SCREEN Result Comment: Cotinine is the first-stage metabolite of Nicotine. Performed By: #### L505.6240 #### [facility] [address] [place], [place], [address] BEDSIDE GLUCOSE Collected: 02/16/2018 Status: F Source: RACHANA 8:05 AM [facility] REPOSITORY TYPE CODE TESTS RESULT OUT OF REFERENCE UNITS RANGE LAB L501.080 70-110 mg/dL High BEDSIDE GLU 169 Result Comment: MANAGEMENT OF PATIENT CARE PER NURSING PROTOCOL Performed By: #### L501.080 #### [facility] Point [place] [address] HAND 3V PA/LAT/OBL Observed: 02/10/2018 Status: F Source: [facility] 12:28 PM HEALTH SYSTEM REPOSITORY Performed at [facility] APPROVED BY: Niranjan Marin MD EXAM TITLE: HAND 3V PA/LAT/OBL LEFT, HAND 3V PA/LAT/OBL RIGHT DATE: 02/10/2018 12:27 (accession [id number]), 02/10/2018 12:24 (accession [id number]) INDICATION: Bilateral hand pain. COMPARISON: None. PA, oblique, lateral views of both hands were performed. Right: Normal alignment. No fracture. No bone erosion or bone destruction. No significant soft tissue abnormality noted. Normal bone density. Left: Normal alignment. No fracture. No bone erosion or bone destruction. No significant soft tissue abnormality noted. Normal bone density. IMPRESSION: Negative views of both hands. HAND 3V PA/LAT/OBL Observed: 02/10/2018 Status: F Source: [facility] 12:26 PM HEALTH SYSTEM REPOSITORY Performed at [facility] APPROVED BY: Niranjan Marin MD EXAM TITLE: HAND 3V PA/LAT/OBL LEFT, HAND 3V PA/LAT/OBL RIGHT DATE: 02/10/2018 12:27 (accession [id number]), 02/10/2018 12:24 (accession [id number]) INDICATION: Bilateral hand pain. COMPARISON: None. PA, oblique, lateral views of both hands were performed. Right: Normal alignment. No fracture. No bone erosion or bone destruction. No significant soft tissue abnormality noted. Normal bone density. Left: Normal alignment. No fracture. No bone erosion or bone destruction. No significant soft tissue abnormality noted. Normal bone density. IMPRESSION: Negative views of both hands. FOOT 3V AP/LAT/OBL Observed: 02/10/2018 Status: F Source: [facility] 12:22 PM HEALTH SYSTEM REPOSITORY Performed at [facility] APPROVED BY: Carlos Monsivais MD EXAM TITLE: 3 VIEWS BILATERAL FEET DATE:02/10/2018 12:20 (accession [id number]), 02/10/2018 12:19 (accession [id number]) COMPARISON: None. CLINICAL INDICATION/HISTORY: Bilateral foot pain RESULTS: Left foot: No fracture or subluxation is seen. Joint spaces are preserved. No erosions. Right foot: No fracture or subluxation is seen. Joint spaces are preserved. No erosions. There is a benign/nonaggressive sclerosis along the medial aspect of the first proximal phalanx. IMPRESSION: Unremarkable bilateral feet. No acute abnormality. No erosions or significant degenerative joint space narrowing. FOOT 3V AP/LAT/OBL Observed: 02/10/2018 Status: F Source: [facility] 12:22 PM HEALTH SYSTEM REPOSITORY Performed at [facility] APPROVED BY: Carlos Monsivais MD EXAM TITLE: 3 VIEWS BILATERAL FEET DATE:02/10/2018 12:20 (accession [id number]), 02/10/2018 12:19 (accession [id number]) COMPARISON: None. CLINICAL INDICATION/HISTORY: Bilateral foot pain RESULTS: Left foot: No fracture or subluxation is seen. Joint spaces are preserved. No erosions. Right foot: No fracture or subluxation is seen. Joint spaces are preserved. No erosions. There is a benign/nonaggressive sclerosis along the medial aspect of the first proximal phalanx. IMPRESSION: Unremarkable bilateral feet. No acute abnormality. No erosions or significant degenerative joint space narrowing. RHEUMATOID FACTOR Collected: 02/10/2018 Status: F Source: [facility] 12:20 PM HEALTH SYSTEM REPOSITORY TYPE CODE TESTS RESULT OUT OF REFERENCE UNITS RANGE LAB RF1(LOINC) 0.0-15.0 IU/mL Rheumatoid < 10.0 Factor Performed By: #### RF1 #### [address] [address] CPK Collected: 02/10/2018 Status: F Source: [facility] 12:20 PM HEALTH SYSTEM REPOSITORY TYPE CODE TESTS RESULT OUT OF RANGE REFERENCE UNITS LAB CK(LOINC) 26-192 U/L CPK 42 Performed By: #### CK #### [place] [address] CCP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 TID #15 cap 05/01/17 Docusate Sodium [Colace] 100 mg PO BID #60 cap 05/01/17 Oxycodone HCl/Acetaminophen [Percocet 5/325] 1 - 2 tab PO 4X/DAY PRN PRN 7 Days #50 tab 05/01/17 ProMETHAzine [Phenergan] 25 mg PO 4X/DAY PRN PRN #30 tab 05/01/17 Rizatriptan Benzoate [Maxalt] 10 mg PO X1 PRN tab 05/01/17 Following Prescrptions Were Given to Patient: Insulin Aspart [Novolog Flexpen] See Protocol SC ACHS #1 flexpen Oxycodone HCl/Acetaminophen [Percocet 5/325] 1 - 2 tab PO 4X/DAY PRN PRN 7 Days #50 tab PRN Reason: Pain ProMETHAzine [Phenergan] 25 mg PO 4X/DAY PRN PRN #30 tab PRN Reason: NAUSEA/VOMITING Docusate Sodium [Colace] 100 mg PO BID #60 cap Insulin Detemir [Levemir FlexPen] 10 units SC BID #1 insuln.pen Metformin HCl [Glucophage] 500 mg PO BIDCM #60 tab Clindamycin HCl [Cleocin] 300 mg PO TID #15 cap Other Amb Orders: Glucometer Location: None Selected Primary Care Physician: Timmy Park MD [Primary Care Provider] - Please follow up with your Primary Care Physician in: Follow- up within 3-5 days to review admission. Please Follow Up With: Roberto Holden MD When: one week. call [phone] for appt. Please Follow Up With: Melissa Bragg NP-C When: Please contact office to establish care. Patient Instructions: Long-Term Complications of Diabetes, What Is Type 2 Diabetes?, How to Check Your Blood Sugar, Using Injected Insulin, Oral Medications for Type 2 Diabetes, Types of Insulin, Healthy Meals for Diabetes, Diabetes: Understanding Carbohydrates Disposition: Home Minutes spent on discharge:: 35 Patient Condition:: Stable Meaningful Use Info Meaningful Use Diagnoses (Choose all that apply): None applicable 05/04/172005 <Electronically signed by Roberto Holden MD> Date Roberto Holden MD Cosigner Signature (if applicable): Date CC: Melissa Bragg NP; Stella Castanon; Ephraim Tai D.O.; Roberto Holden MD; Timmy Park MD Signed BEDSIDE GLUCOSE Collected: 05/01/2017 Status: F Source: [place] 4:59 PM [facility] REPOSITORY TYPE CODE TESTS RESULT OUT OF REFERENCE UNITS RANGE LAB L501.080 70-110 mg/dL High BEDSIDE GLU 182 Result Comment: MANAGEMENT OF PATIENT CARE PER NURSING PROTOCOL Performed By: #### L501.080 #### [facility] Point of Care [address] [facility] [place] [address] DISCHARGE INSTRUCTION Observed: 05/01/2017 Status: F Source: [place] 12:54 PM [facility] REPOSITORY [facility] Medical Records Department [address] [place] [address] Instructions for Home/Discharge Instructions 05/01/17 1249 MR#: [id number] Acct: [id number] Name: COLLEEN MILIAN Rep #: [id number] : 1975 41 From: Roberto Holden MD PCP: Timmy Park MD Status: ADM IN - Discharge Diagnoses Current Active Problems: Current Active and Chronic Problems Allergic rhinitis (Chronic) Asthma (Chronic) Diabetes mellitus, type II (Chronic) Migraine (Chronic) Anxiety and depression (Chronic) Rheumatoid arthritis (Chronic) Overweight (BMI 25.0-29.9) (Chronic) You will use the following diet at home:: No restrictions Discharge Activity: May not drive while taking narcotic pain medications., - - keep head elevated. no heavy lifting. May shower in (days): 1 May resume sexual activity in: No Restrictions Ice area for (Minutes): 5 - as needed for facial swelling. Weight Bearing Status: Weight bearing as tolerated Lifting Restrictions: 10 lbs. Keep extremity elevated above heart level: - - elevate head. Call your doctor if your incision/area has: Continuous Slow Oozing, Sudden Increased Bleeding, Increased Pain/ Swelling, Increased Redness, Foul Smelling Discharge, Swelling at the incision site Call your doctor if you observe: Fever of 101 or Higher, Coldness, Increased Pain, Shortness of breath, Chest pain, Calf discomfort, Uncontrolled pain, - - Uncontrolled blood sugars or dyspnea, cough please contact your primary care physician. All other call parameters per Dr. Holden discharge instructions. If you develop a low grade fever (100 degrees F or higher) then go to the ED right away. They will call me as the packing needs to be removed at that point ASCENCION to minimize risk of toxic shock. Change Dressing in (Days):: 1 - change nasal drip pad as needed for drainage. Cleanse incision/area with: Soap AND Water, - - patient may shower tomorrow. Instructions: Long-Term Complications of Diabetes, What Is Type 2 Diabetes?, How to Check Your Blood Sugar, Using Injected Insulin, Oral Medications for Type 2 Diabetes, Types of Insulin, Healthy Meals for Diabetes, Diabetes: Understanding Carbohydrates Allergies/Adverse Reactions: Allergies mold Allergy (Verified 04/27/17 15:54) Itching naproxen Allergy (Verified 04/27/17 15:54) Unknown venom-honey bee [bee venom (honey bee)] Allergy (Verified 04/27/17 15:54) Swelling amoxicillin Adverse Reaction (Verified 04/27/17 15:54) Upset Stomach guaifenesin [From Robitussin] Adverse Reaction (Verified 04/27/17 15:54) Nausea Medications to take at Discharge Ranitidine [Zantac] 150 mg PO BID PRN 12/30/13 Epinephrine [Epi Pen] 0.3 mg IM X1 PRN 10/31/15 Sumatriptan Succinate [Imitrex] 50 mg PO .X1 PRN PRN 10/31/15 Escitalopram Oxalate [Lexapro] 20 mg PO DAILY 11/24/15 DiphenhydrAMINE [Benadryl] 25 mg PO TID PRN PRN #20 capsule 02/24/16 Fluticasone 0.05% [Flonase Nasal [place]] 1 spray NASAL DAILY 05/01/16 Albuterol Inhaler [Ventolin Hfa] 1 - 2 puff INHALATION Q4H PRN PRN 06/13/16 Ibuprofen [Motrin] 800 mg PO TID PRN PRN #20 tablet 07/20/16 Gabapentin [Neurontin] 300 mg PO TID 07/25/16 Albuterol Aerosols [Ventolin Aerosols] 2.5 mg INHALATION Q4H PRN PRN #30 vial 08/05/16 Aspirin/Acetaminophen/Caffeine [Excedrin Migraine Caplet] 1 each PO PRN PRN 04/27/17 Insulin Aspart [Novolog Flexpen] See Protocol SC ACHS #1 flexpen 04/30/17 Insulin Detemir [Levemir FlexPen] 10 units SC BID #1 insuln.pen 04/30/17 Metformin HCl [Glucophage] 500 mg PO BIDCM #60 tab 04/30/17 Clindamycin HCl [Cleocin] 300 mg PO TID #15 cap 05/01/17 Docusate Sodium [Colace] 100 mg PO BID #60 cap 05/01/17 Oxycodone HCl/Acetaminophen [Percocet 5/325] 1 - 2 tab PO 4X/DAY PRN PRN 7 Days #50 tab 05/01/17 ProMETHAzine [Phenergan] 25 mg PO 4X/DAY PRN PRN #30 tab 05/01/17 Rizatriptan Benzoate [Maxalt] 10 mg PO X1 PRN tablet 05/01/17 The following prescriptions were given: Insulin Aspart [Novolog Flexpen] See Protocol SC ACHS #1 flexpen Oxycodone HCl/Acetaminophen [Percocet 5/325] 1 - 2 tab PO 4X/DAY PRN PRN 7 Days #50 tab PRN Reason: Pain ProMETHAzine [Phenergan] 25 mg PO 4X/DAY PRN PRN #30 tab PRN Reason: NAUSEA/VOMITING Docusate Sodium [Colace] 100 mg PO BID #60 cap Insulin Detemir [Levemir FlexPen] 10 units SC BID #1 insuln.pen Metformin HCl [Glucophage] 500 mg PO BIDCM #60 tab Clindamycin HCl [Cleocin] 300 mg PO TID #15 cap Orders to be completed after discharge: Glucometer Location: None Selected Primary Care Physician: Timmy Park MD [Primary Care Provider] - Please follow up with your Primary Care Physician in: Follow- up within 3-5 days to review admission. Please Follow Up With: Roberto Holden MD When: one week. call [phone] for appt. Please Follow Up With: Melissa Bragg NP-C When: Please contact office to establish care. Proposed Discharge Date: 05/01/17 05/01/17 8450 <Electronically signed by Roberto Holden MD> Date Roberto Holden MD CC: Melissa Bragg NP; Ephraim Tai D.O.; Timmy Park MD BEDSIDE GLUCOSE Collected: 05/01/2017 Status: F Source: [place] 11:59 AM [facility] REPOSITORY TYPE CODE TESTS RESULT OUT OF REFERENCE UNITS RANGE LAB L501.080 70-110 mg/dL High BEDSIDE GLU 154 Result Comment: MANAGEMENT OF PATIENT CARE PER NURSING PROTOCOL Performed By: #### L501.080 #### [facility] Point of Care [address] [place], [place] [id number] BEDSIDE GLUCOSE Collected: 05/01/2017 Status: F Source: [place] 8:38 AM [facility] REPOSITORY TYPE CODE TESTS RESULT OUT OF REFERENCE UNITS RANGE LAB L501.080 70-110 mg/dL High BEDSIDE GLU 197 Result Comment: MANAGEMENT OF PATIENT CARE PER NURSING PROTOCOL Performed By: #### L501.080 #### [facility] Point of Care [address] [place], [place] [id number] BEDSIDE GLUCOSE Collected: 05/01/2017 Status: F Source: [place] 6:44 AM [facility] REPOSITORY TYPE CODE TESTS RESULT OUT OF REFERENCE UNITS RANGE LAB L501.080 70-110 mg/dL High BEDSIDE GLU 192 Result Comment: MANAGEMENT OF PATIENT CARE PER NURSING PROTOCOL Performed By: #### L501.080 #### [facility] Point of Care [address] [place], [place] [address] CBC-COMPLETE BLOOD CNT Collected: 05/01/2017 Status: F Source: [place] NO DIFF 5:42 AM [facility] REPOSITORY TYPE CODE TESTS RESULT OUT OF RANGE REFERENCE UNITS LAB L100.1000 4.4-11.0 K/mm3 Normal WBC 11.0 LAB L100.1200 4.2-5.4 M/mm3 Low RBC 3.82 LAB L100.1300 12.0-15.0 g/dl Low HGB 11.2 LAB L100.1400 37-47 % Low HCT 35.0 LAB L100.1500 81-99 fL Normal MCV 91.6 LAB L100.1600 27.0-32.0 pg Normal MCH 29.3 LAB L100.1700 32-36 g/gl Normal MCHC 32.0 LAB L100.1810 11.6-14.6 % Normal RDW CV 13.8 LAB L100.1820 35.1-43.9 fl High RDW SD 45.4 LAB L100.1900 150-450 K/mm3 Normal PLT 203 LAB L100.2000 6.2-12.0 fl Normal MPV 11.2 Performed By: #### L100.0500 #### [facility] [address] [place], [address] BASIC METABOLIC Collected: 05/01/2017 Status: F Source: [place] PROFILE (BMP) 5:42 AM [facility] REPOSITORY TYPE CODE TESTS RESULT OUT OF RANGE REFERENCE UNITS LAB L501.0100 70-110 mg/dL High GLU 179 Result Comment: Fasting Glucose result greater than or equal to 126 mg/dL suggests DIABETES MELLITUS per A.D.A. criteria. LAB L501.1000 7-18 mg/dL Normal BUN 9 LAB L501.1100 0.55-1.02 mg/dL Low CREAT,SERUM 0.47 Result Comment: The validity of the calculated GFR AND GFRAA in patients over 70 years has not been determined. Clinical correlation is essential. LAB L501.1110 >60 mL/min Normal EST GFR 156 Result Comment: Non- GFR Calc LAB L501.1115 >60 mL/min Normal EST GFR - AA 188 Result Comment: GFR Calc LAB L501.1255 ml/min Normal Estimated CRCL 120.07 LAB L501.1300 10-20 RATIO BUN/CRE Normal 19.1 LAB L501.2200 8.5-10 mg/dL .1 CA Normal 8.5 LAB L501.5300 136-14 mmol/L 5 NA Normal 141 LAB L501.5600 3.5-5. mmol/L 1 K Normal 3.7 LAB L501.5900 98-107 mmol/L CL Normal 105 LAB L501.6100 21.0-3 mmol/L 2.0 CO2 Normal 29.0 LAB L501.6200 5-15 GAP Normal 7 Performed By: #### L500.2500 #### [facility] [address] [place] [place], [address] BEDSIDE GLUCOSE Collected: 04/30/2017 Status: F Source: [place] 9:28 PM [facility] REPOSITORY TYPE CODE TESTS RESULT OUT OF REFERENCE UNITS RANGE LAB L501.080 70-110 mg/dL High BEDSIDE GLU 197 Result Comment: MANAGEMENT OF PATIENT CARE PER NURSING PROTOCOL Performed By: #### L501.080 #### [facility] Point of Care [address] [place] [address] BEDSIDE GLUCOSE Collected: 04/30/2017 Status: F Source: [place] 4:03 PM [facility] REPOSITORY TYPE CODE TESTS RESULT OUT OF REFERENCE UNITS RANGE LAB L501.080 70-110 mg/dL High BEDSIDE GLU 196 Result Comment: MANAGEMENT OF PATIENT CARE PER NURSING PROTOCOL Performed By: #### L501.080 #### [facility] Point of Care [address] [place] [address] BEDSIDE GLUCOSE Collected: 04/30/2017 Status: F Source: [place] 11:04 AM [facility] REPOSITORY TYPE CODE TESTS RESULT OUT OF REFERENCE UNITS RANGE LAB L501.080 70-110 mg/dL High BEDSIDE GLU 212 Result Comment: MANAGEMENT OF PATIENT CARE PER NURSING PROTOCOL Performed By: #### L501.080 #### [facility] Point of Care [address] [place] [place] [address] DISCHARGE INSTRUCTION Observed: 04/30/2017 Status: F Source: [place] 10:38 AM [facility] Medical Records Department [address] [place] [address] Instructions for Home/Discharge Instructions 04/30/17 1035 MR#: [id number] Acct: [id number] Name: COLLEEN MILIAN Rep #: [id number] : 1975 41 From: Stella Castanon PCP: Timmy Park MD Status: ADM IN - Discharge Diagnoses Current Active Problems: Current Active and Chronic Problems Allergic rhinitis (Chronic) Asthma (Chronic) Diabetes mellitus, type II (Chronic) Migraine (Chronic) Anxiety and depression (Chronic) Rheumatoid arthritis (Chronic) Overweight (BMI 25.0-29.9) (Chronic) (1) Unresponsive with Acute Hypoxic and Hypercarbic Respiratory Failure Post-operatively (2) Prior facial trauma s/p right orbital floor w/ ongoing difficulty breathing out of the right nare w/ R facial paresthesias (3) Chronic Asthma (4) Diabetes mellitus type II, Uncontrolled with Hyperglycemia, HgbA1c 8.5% (5) Rheumatoid Arthritis (6) Tobacco Abuse (7) Obesity You will use the following diet at home:: Calorie/Carbohydrate Controlled (specify 1200, 1400, etc) - 1800 ADA diet. Your food should be the consistency of: Regular Discharge Activity: - - Activity parameters per Dr. Holden. Call your doctor if your incision/area has: Continuous Slow Oozing, Sudden Increased Bleeding, Increased Pain/ Swelling, Increased Redness, Foul Smelling Discharge, Swelling at the incision site Call your doctor if you observe: - - Uncontrolled blood sugars or dyspnea, cough please contact your primary care physician. All other call parameters per Dr. Holden discharge instructions. Instructions: Long-Term Complications of Diabetes, Healthy Meals for Diabetes, Diabetes: Understanding Carbohydrates, What Is Type 2 Diabetes?, How to Check Your Blood Sugar, Using Injected Insulin, Oral Medications for Type 2 Diabetes, Types of Insulin Allergies/Adverse Reactions: Allergies mold Allergy (Verified 04/27/17 15:54) Itching naproxen Allergy (Verified 04/27/17 15:54) Unknown venom-honey bee [bee venom (honey bee)] Allergy (Verified 04/27/17 15:54) Swelling amoxicillin Adverse Reaction (Verified 04/27/17 15:54) Upset Stomach guaifenesin [From Robitussin] Adverse Reaction (Verified 04/27/17 15:54) Nausea Medications to take at Discharge Ranitidine [Zantac] 150 mg PO BID PRN 12/30/13 Epinephrine [Epi Pen] 0.3 mg IM X1 PRN 10/31/15 Sumatriptan Succinate [Imitrex] 50 mg PO .X1 PRN PRN 10/31/15 Escitalopram Oxalate [Lexapro] 20 mg PO DAILY 11/24/15 DiphenhydrAMINE [Benadryl] 25 mg PO TID PRN PRN #20 capsule 02/24/16 Fluticasone 0.05% [Flonase Nasal [place]] 1 spray NASAL DAILY 05/01/16 Albuterol Inhaler [Ventolin Hfa] 1 - 2 puff INHALATION Q4H PRN PRN 06/13/16 Ibuprofen [Motrin] 800 mg PO TID PRN PRN #20 tablet 07/20/16 Gabapentin [Neurontin] 300 mg PO TID 07/25/16 Albuterol Aerosols [Ventolin Aerosols] 2.5 mg INHALATION Q4H PRN PRN #30 vial 08/05/16 Aspirin/Acetaminophen/Caffeine [Excedrin Migraine Caplet] 1 each PO PRN PRN 04/27/17 Insulin Aspart [Novolog Flexpen] See Protocol SC ACHS #1 flexpen 04/30/17 Insulin Detemir [Levemir FlexPen] 10 units SC BID #1 insuln.pen 04/30/17 Metformin HCl [Glucophage] 500 mg PO BIDCM #60 tab 04/30/17 The following prescriptions were given: Insulin Aspart [Novolog Flexpen] See Protocol SC ACHS #1 flexpen Insulin Detemir [Levemir FlexPen] 10 units SC BID #1 insuln.pen Metformin HCl [Glucophage] 500 mg PO BIDCM #60 tab Orders to be completed after discharge: Glucometer Location: None Selected Primary Care Physician: Timmy Park MD [Primary Care Provider] - Please follow up with your Primary Care Physician in: Follow- up within 3-5 days to review admission. Please Follow Up With: Roberto Holden MD When: Follow-up per his discharge instructions. Please Follow Up With: Melissa Bragg [employer] When: Please contact office to establish care. Proposed Discharge Date: 04/30/17 04/30/17 1038 <Electronically signed by Stella Castanon > Date Stella Castanon CC: Ephraim Tai D.O.; Timmy Park MD BEDSIDE GLUCOSE Collected: 04/30/2017 Status: F Source: [place] 6:18 AM [facility] REPOSITORY TYPE CODE TESTS RESULT OUT OF REFERENCE UNITS RANGE LAB L501.080 70-110 mg/dL High BEDSIDE GLU 235 Result Comment: MANAGEMENT OF PATIENT CARE PER NURSING PROTOCOL Performed By: #### L501.080 #### [facility] Point of Care [address] [place], [place] [address] CBC-COMPLETE BLOOD CNT Collected: 04/30/2017 Status: F Source: [place] NO DIFF 5:40 AM [facility] REPOSITORY TYPE CODE TESTS RESULT OUT OF RANGE REFERENCE UNITS LAB L100.1000 4.4-11.0 K/mm3 High WBC 16.8 LAB L100.1200 4.2-5.4 M/mm3 Low RBC 3.78 LAB L100.1300 12.0-15.0 g/dl Low HGB 11.1 LAB L100.1400 37-47 % Low HCT 34.7 LAB L100.1500 81-99 fL Normal MCV 91.8 LAB L100.1600 27.0-32.0 pg Normal MCH 29.4 LAB L100.1700 32-36 g/gl Normal MCHC 32.0 LAB L100.1810 11.6-14.6 % Normal RDW CV 14.0 LAB L100.1820 35.1-43.9 fl High RDW SD 45.7 LAB L100.1900 150-450 K/mm3 Normal PLT 211 LAB L100.2000 6.2-12.0 fl Normal MPV 11.0 Performed By: #### L100.0500 #### [facility] [address] [place], [place], [address] BASIC METABOLIC Collected: 04/30/2017 Status: F Source: [place] PROFILE (BMP) 5:40 AM [facility] REPOSITORY TYPE CODE TESTS RESULT OUT OF RANGE REFERENCE UNITS LAB L501.0100 70-110 mg/dL High GLU 239 Result Comment: Glucose result greater than or equal to 200 mg/dL suggests DIABETES MELLITUS per A.D.A. criteria. LAB L501.1000 7-18 mg/dL Normal BUN 13 LAB L501.1100 0.55-1.02 mg/dL Low CREAT,SERUM 0.51 Result Comment: The validity of the calculated GFR AND GFRAA in patients over 70 years has not been determined. Clinical correlation is essential. LAB L501.1110 >60 mL/min Normal EST GFR 143 Result Comment: Non- GFR Calc LAB L501.1115 >60 mL/min Normal EST GFR - AA 173 Result Comment: GFR Calc LAB L501.1255 ml/min Normal Estimated CRCL 110.65 LAB L501.1300 10-20 RATIO High BUN/CRE 25.7 LAB L501.2200 8.5-10 mg/dL Low .1 CA 8.3 LAB L501.5300 136-14 mmol/L Low 5 NA 135 LAB L501.5600 3.5-5. mmol/L 1 K Normal 3.8 LAB L501.5900 98-107 mmol/L CL Normal 100 LAB L501.6100 21.0-3 mmol/L 2.0 CO2 Normal 28.0 LAB L501.6200 5-15 GAP Normal 7 Performed By: #### L500.2500 #### [facility] [address] [facility] [place], [address] CHEST 1 VIEW Observed: 04/30/2017 Status: F Source: [place] (PORTABLE) 12:01 AM [facility] REPOSITORY [facility] Imaging Services [address] [place] [address] Chest 1 View (Portable) MR#: [id number] Acct: [id number] Name: COLLEEN MILIAN Rep #: [id number] : 1975 F 41 From: Saul Colon MD PCP: Timmy Park MD Status: ADM IN Study: Chest 1 View (Portable) Date of Exam: 04/30/17 Exam# [id number] Ordering Dr: Stella Castanon STUDY: X-RAY CHEST REASON FOR EXAM: Female, 41 years old. Shortness of breath. TECHNIQUE: Single AP portable view of the chest. COMPARISON: Comparison is made with prior study dated April 29, 2017. FINDINGS: EKG electrodes are seen. The endotracheal tube has been removed. The enterogastric tube has been removed as well. Mild elevation of the right hemidiaphragm. Mild increased markings at the lung bases suggestive of atelectasis. This has improved. Further follow-up is recommended. There is blunting of the left costophrenic angle. There is mild cardiac enlargement. Normal mediastinum and kishan. Normal visualized pulmonary arteries. There is atherosclerotic tortuosity of the aortic arch and descending thoracic aorta. Normal visualized thoracic spine. Normal visualized ribs, clavicles, and shoulders. There is no demonstrated abnormality of the visualized soft tissue structures of the upper abdomen. RAD/Chest 1 View (Portable) IMPRESSION: Residual atelectasis at the lung bases. Electronically Signed: Saul Colon MD at 9:10 EST Tel [phone], Service support , CC: Stella Castanon; Timmy Park MD Medical Health Researcher: Signed HISTORY AND PHYSICAL Observed: 04/29/2017 Status: F Source: [place] EXAM 11:19 PM [facility] REPOSITORY [facility] Medical Records Department [address] [place] [address] History and Physical 04/27/17 1708 MR#: [id number] Acct: [id number] Name: COLLEEN MILIAN Rep #: [id number] : 1975 41 From: Roberto Holden MD PCP: Timmy Park MD Status: ADM IN Location: [facility] [id number] History and Physical Date of Admission: 04/28/17 Primary Provider: Timmy Park MD CC: evaluation difficulty breathing. History of Present Illness: Patient comes back in today with complaints of difficulty breathing out of the right side of her nose. She also has residual discomfort in the area of the fracture repair involving the right orbital floor blowout fracture that was repaired on November 02, 2015. Her tingling on her right cheek is much improved as she states the Neurontin has been helpful. She goes to the pain center for low back pain and she gets Neurontin from their office. She states that when she pulls on her cheeks that spreads the nose a little bit and she is able to breathe a little easier. She has no visual complaints. She presents at this time for further evaluation and treatment. Past Medical History: Seasonal Allergies Arthritis Asthma Back problems Bladder/Urinary Tract Inf Diabetes Anxiety Gallstones Headaches/Migraines Hearing Problems Reflux Rheumatoid Arthritis Vision Problems right orbital floor blowout fracture deviated nasal septum internal nasal valve stenosis difficulty breathing nasal airway obstruction Past Surgical History: Gallbladder removed 3 C-sections open reduction right orbital floor blowout fracture using combined approach (periorbital and transantral) with titanium mesh reconstruction - 11/02/15 Family History: patient is adopted Social History: Patient currently smokes every day. patient does not drink alcohol. Medications: FAMOTIDINE 20 MG ORAL TABLET (FAMOTIDINE) ORPHENADRINE CITRATE ER 100 MG ORAL TABLET EXTENDED RELEASE 12 HOUR (ORPHENADRINE CITRATE) DIPHENHYDRAMINE HCL 25 MG ORAL TABLET (DIPHENHYDRAMINE HCL) ONDANSETRON HCL 4 MG ORAL TABLET (ONDANSETRON HCL) MELOXICAM 15 MG ORAL TABLET (MELOXICAM) NORCO 5-325 MG ORAL TABLET (HYDROCODONE-ACETAMINOPHEN) DICYCLOMINE HCL 20 MG ORAL TABLET (DICYCLOMINE HCL) ESCITALOPRAM OXALATE 10 MG ORAL TABLET (ESCITALOPRAM OXALATE) GABAPENTIN 300 MG ORAL CAPSULE (GABAPENTIN) IBUPROFEN 800 MG ORAL TABLET (IBUPROFEN) 1 tab every 8 hrs VENTOLIN HFA AEROSOL SOLUTION (ALBUTEROL SULFATE AERS) as needed PROAIR HFA AEROSOL SOLUTION (ALBUTEROL SULFATE AERS) as needed CETIRIZINE HCL 10 MG ORAL TABLET (CETIRIZINE HCL) One tablet by mouth daily LOPERAMIDE HCL 2 MG ORAL CAPSULE (LOPERAMIDE HCL) 1 capsule as needed no more than 2 capsules daily RANITIDINE HCL 150 MG ORAL TABLET (RANITIDINE HCL) 1-2 tabs twice daily SUMATRIPTAN SUCCINATE TABLET (SUMATRIPTAN SUCCINATE TABS) 50mg 1 tab as needed onset of migraine EPIPEN 2-STACI 0.3 MG/0.3ML INJECTION SOLUTION AUTO-INJECTOR (EPINEPHRINE) as needed Allergies: NAPROSYN (Critical) * BEE STINGS (Critical) Problems: 1) Dx of right orbital floor blowout fracture, sequela (PLV29-A50.31xS) 2) Dx of Deviated nasal septum (SFS75-U36.2) (ICD-470) 3) Dx of internal nasal valve stenosis (YWW55-C97.89) (ICD-478.19) 4) Dx of Difficulty breathing (MVN34-A63.00) (ICD-786.09) 5) Dx of nasal airway obstruction (HQC29-X41.8) (ICD-519.8) Risk Factors: Smoked Tobacco Use: Current every day smoker Cigarettes: Yes -- 1 pack per day pack(s) per day, Year started: 2006 Smokeless Tobacco Use: Never Counseled to quit/cut down: yes Passive smoke exposure: yes Drug use: no HIV high-risk behavior: no Caffeine use: 1 drinks per day Alcohol use: no Exercise: yes Type of Exercise: Walking Seatbelt use: 100 % Sun Exposure: frequently Dietary Counseling: yes Review of Systems General -Denies fever, fatigue and weight loss. Eyes-denies eye pain. ENT -Denies nasal congestion and sore throat. Has difficulty breathing out of the right side of her nose. CV -Denies chest pain or discomfort, fatigue, lightheadedness and shortness of breath with exertion. Resp -Denies cough and shortness of breath. Has difficulty breathing out of the right side of her nose. pt is current smoker. GI -Denies nausea, vomiting, diarrhea and constipation. -Denies blood in urine and urinary frequency. MS -Denies joint pain, joint swelling, back pain, stiffness, muscle weakness and arthritis. Derm -Denies skin cancer and rash. Neuro -Denies headaches and weakness. Psych -Denies anxiety and depression. Endo -Denies excessive urination and excessive thirst. Heme -Denies bleeding and abnormal bruising. Vital Signs: Patient Profile: 41 Years Old Female Height: 62 inches Weight: 148.8 pounds BMI: 27.21 BSA: 1.69 Physical Exam General: -well developed, well nourished, in no acute distress. HEENT: PERRL/EOM intact, conjunctiva and sclera clear. No numbness in the right cheek. No facial swelling. No bony tenderness. There is septal deviation to the right side. Nancy maneuver is positive suggesting internal nasal valve stenosis from scarring or trauma. She is missing a lot of teeth no obvious occlusion irregularities. Throat is clear. Neck: -no masses, thyromegaly, or abnormal cervical nodes. Lungs: -clear bilaterally to auscultation. Heart: -non-displaced PMI, chest non-tender; regular rate and rhythm, S1, S2 without murmurs, rubs, or gallops. Pulses: -Radial pulses palpable Extremities: -no clubbing, cyanosis, edema, or deformity noted with normal full range of motion of all joints. Neurologic: -no focal deficits, cranial nerves II-XII grossly intact with normal sensation, reflexes, coordination, muscle strength and tone. Skin: -no rashes Cervical Nodes: -no significant adenopathy. Axillary Nodes: -no significant adenopathy. Psych: -alert and cooperative; normal mood and affect; normal attention span and concentration. Assessment and Plan Assessment 1. Nasal airway obstruction with difficulty breathing. 2. Internal nasal valve stenosis. 3. Deviated nasal septum. 4. Right orbital floor blowout fracture repair, sequela. 5. Smoker. Plan On exam the patient has a septal deviation to the right. She also has internal nasal valve stenosis with a decrease in the angle secondary to either scarring and/or trauma. The Nancy maneuver was positive which is lateral traction on the cheek leading to increased airflow. Sometimes the swelling from the face fracture and the swelling from the repair of the facial fracture can lead to scarring in this area. I will repeat a CT scan of the facial bones and mandible including axial and coronal views. This will give me a good anatomical view of the nose. To help with her breathing difficulties, she may need a septoplasty as well as a complex nasal reconstruction with placement of cartilage biological technician grafts to help increase the internal nasal valve angle a little bit to help to increase airflow by decreasing the turbulence secondary to scarring and trauma. That nasal reconstruction surgery will be done under general anesthesia with a possible surgical observation overnight stay. The patient was informed of the risks and complications of the procedure including alternatives to surgery. These were discussed with her personally. She voices understanding and wishes to proceed. Some of the risks and complications were included in a form from the [employer]. Patient is aware that she will have a dorsal nasal splint for a few weeks and nasal packing for a few days. Encouraged the patient to stop smoking as it may have deleterious effects on wound healing. 04/29/17 6914 <Electronically signed by Roberto Holden MD> Date Roberto Holden MD Cosigner Signature: Date (if applicable) CC: Roberto Holden MD; Timmy Park MD Signed BEDSIDE GLUCOSE Collected: 04/29/2017 Status: F Source: [place] 10:35 PM [facility] REPOSITORY TYPE CODE TESTS RESULT OUT OF REFERENCE UNITS RANGE LAB L501.080 70-110 mg/dL High BEDSIDE GLU 301 Result Comment: MANAGEMENT OF PATIENT CARE PER NURSING PROTOCOL Performed By: #### L501.080 #### [facility] Point of [facility] [address] [place] [address] BEDSIDE GLUCOSE Collected: 04/29/2017 Status: F Source: [place] 5:10 PM [facility] REPOSITORY TYPE CODE TESTS RESULT OUT OF REFERENCE UNITS RANGE LAB L501.080 70-110 mg/dL High BEDSIDE GLU 304 Result Comment: MANAGEMENT OF PATIENT CARE PER NURSING PROTOCOL Performed By: #### L501.080 #### [facility] Point of Care [address] [facility] [place] [address] CONSULTATION Observed: 04/29/2017 Status: F Source: [place] 2:04 PM [facility] REPOSITORY [facility] Medical Records Department [address] [place] [address] Consultation 04/29/17 0703 MR#: [id number] Acct: [id number] Name: COLLEEN MILIAN Rep #: [id number] : 1975 41 From: Ephraim Tai DO PCP: Timmy Park MD Status: ADM IN Y Location: ICU ICU10-1 Reason for Consult Date of Consultation: 04/29/17 Reason for Consultation: Respiratory failure History of Present Illness: The patient is a 41-year-old female, with a history as outlined below, who presented to the hospital on April 28 for an elective outpatient septoplasty and repair of internal nasal vestibular stenosis due to a history of prior facial trauma with ongoing breathing difficulties. The patient was taken to the OR by Dr. Holden with an uncomplicated surgical procedure noted. However, following her transfer to the PACU, the patient was noted to be less responsive. There was concern for her ability to protect her airway. Therefore, she was emergently intubated. Arterial blood gas obtained shortly after intubation revealed evidence of hypoxemia and hypercarbia. There is clinical suspicion that the patient was still sedated following her procedure and went on to develop acute hypercarbic respiratory failure. The patient was subsequently transferred to the medical intensive care unit for ongoing management. With the exception of hyperglycemia, the patient's laboratory workup has been largely unrevealing. She has remained afebrile and hemodynamically stable. No overnight issues were identified by the nursing staff. This morning, the patient is alert and appropriately interactive. She did pass her spontaneous breathing trial. Therefore, the patient was extubated at the bedside under my direct supervision. Past Medical History Past Medical History (Chronic Problems): Chronic Problems Allergic rhinitis (Chronic) Asthma (Chronic) Diabetes mellitus, type II (Chronic) Migraine (Chronic) Anxiety and depression (Chronic) Rheumatoid arthritis (Chronic) Overweight (BMI 25.0-29.9) (Chronic) Smoker (Chronic) F17.200 Allergies mold Allergy (Verified 04/27/17 15:54) Itching naproxen Allergy (Verified 04/27/17 15:54) Unknown venom-honey bee [bee venom (honey bee)] Allergy (Verified 04/27/17 15:54) Swelling amoxicillin Adverse Reaction (Verified 04/27/17 15:54) Upset Stomach guaifenesin [From Robitussin] Adverse Reaction (Verified 04/27/17 15:54) Nausea Home Medications: Ambulatory Orders Medication Instructions Recorded Ranitidine [Zantac] 150 mg PO BID PRN 12/30/13 Epinephrine [Epi Pen] 0.3 mg IM X1 PRN 10/31/15 Sumatriptan Succinate [Imitrex] 50 mg PO .X1 PRN PRN 10/31/15 Surgical History: - - Septoplasty with submucous resection, repair of internal nasal vestibular stenosis with placement of bilateral cartilage biological technician grafts from the nasal septum, cholecystectomy, 3 and 3 C-sections, open reduction right orbital floor blowout fracture using combined approach with periorbital and transantral with titanium placement, mesh reconstruction. Psychiatric History: Anxiety, Depression PSYCHIATRIC NURSE PRACTITIONER History: No pertinent PSYCHIATRIC NURSE PRACTITIONER history Lives: Spouse/ Significant Other Smoking Status: Current every day smoker Tobacco Use: Cigarettes Alcohol: None Drugs: None - *Family History Maternal History Items: - - Family history is unknown as she is adopted. Paternal History Items: - - Family history is unknown as she is adopted. Review of Systems Unable to obtain accurate/complete ROS d/t: Due to current intubation status. - Physical Exam General: Alert, Cooperative, No apparent distress, - - Currently intubated and tolerating CPAP. HEENT: - - Surgical dressings in place. Oral: No Gingival or Mucosal Lesions/ Ulcerations, Dry Mucosa, - - Endotracheal and OG tubes in place Neck: Supple, No Nodes, Trachea Midline Lungs: No rhonchi, No wheeze, No rales, Diminished Cardiovascular: Regular rate, Regular Rhythm, Normal S1, Normal S2, No murmurs Abdomen: Bowel Sounds Present, Soft, Non Tender Extremities: No clubbing, No cyanosis, No edema Skin: No rashes, No breakdown Musculoskeletal: No Tenderness to Palpation of Joints or Extremities, No Muscle Wasting Lymphatic: No Cervical, Supraclavicular, or Inguinal Adenopathy Neurological: Neuro grossly intact, - - Alert and following commands appropriately. Vital Signs Temp Pulse Resp BP Pulse Ox 97.7 F L 98 14 119/87 H 98 04/29/17 04:00 04/29/17 06:00 04/29/17 06:00 04/29/17 06:00 04/29/17 06:00 Oxygen Flow Rate 40 Oxygen Delivery Method Mechanical Ventilator Weight: 148 lb 2.41 oz Body Mass Index (BMI) 26.4 Finger Stick Blood Glucose 351 Intake and Output for Last 24 Hours Intake Total 2260 / 2260 656 / 656 Output Total 200 / 200 1275 / 1275 Balance 2060 / 2060 -619 / -619 Laboratory Tests Past 24 Hrs WBC 11.5 H RBC 4.59 Hgb 13.3 Hct 40.9 MCV 89.1 MCH 29.0 WBC 20.6 H RBC 4.38 Hgb 12.5 Hct 40.2 MCV 91.8 MCH 28.5 MCHC 31.1 L RDW 13.4 WBC RBC Hgb Hct MCV MCH MCHC RDW WBC RBC Hgb Hct MCV MCH MCHC WBC 11.6 H RBC 3.93 L Hgb 11.6 L POC Glucose POC Glucose 279 H 297 H 339 H POC Glucose 351 H 323 H Clinical Impression(s) from Imaging Studies Chest X-Ray 04/28/17 18:55 IMPRESSION: Endotracheal tube tip is 1 cm above the lizandro. OG tube tip in the stomach. Electronically Signed: Nader Lutz DO at 20:09 EST , Service support , Chest X-Ray 04/29/17 05:55 IMPRESSION: Endotracheal tube is seen its tip is at the lizandro and can be retracted 2 cm. Electronically Signed: Gabe Lofton MD at 3:02 EST Tel , Service support , Assessment/Plan RECOMMENDATIONS: 1. Proceed with a trial of extubation 2. Once extubated, attempt to maintain patient on room air as tolerated. If supplemental oxygen is required would recommend facemask. 3. Encourage incentive spirometer use 4. Pain control per hospitalist and surgery 5. Perform bedside swallow evaluation and advance diet, if cleared by surgery. 6. Discontinue supplemental IV fluids 7. Discontinue IV steroids 8. Continue as needed aerosol treatments IMPRESSIONS: 1. Acute hypoxemic and hypercarbic respiratory failure Likely secondary to sedating medication utilization and subsequent CO2 retention. The patient has done remarkably well in the ICU. We will plan to proceed with a trial of extubation this morning. The patient will be encouraged to utilize her incentive spirometer postextubation. Continue aerosol treatments as needed. No need for IV steroids. 2. Nasal airway obstruction/prior orbital floor blowout fracture, now postop day #1 status post septoplasty and repair of internal nasal vestibular stenosis Continue pain management per surgery. Will perform bedside swallow evaluation once extubated. If cleared by surgery, diet can be advanced accordingly. 3. Self-reported history of asthma/chronic tobacco dependence As needed aerosols can be utilized. There is no need for steroids currently. Encourage incentive spirometer use. Smoking cessation is advisable. 4. Diabetes/rheumatoid arthritis/obesity Complicates care, management, recovery and prognosis. Initiate insulin coverage given hyperglycemia. Mobilize patient as tolerated. This note was generated with [employer] software. It may contain incorrect words, spelling, and punctuation that were not noted in checking the note before signing. Code Visit Inpatient E AND M: [id number] Init Hosp L3 04/29/17 1404 <Electronically signed by Ephrami Brown DO> Date Ephraim Tai DO Cosigner Signature (if applicable): Date CC: Ephraim Tai D.O.; Timmy Park MD Signed BEDSIDE GLUCOSE Collected: 04/29/2017 Status: F Source: [place] 11:51 AM [facility] REPOSITORY TYPE CODE TESTS RESULT OUT OF REFERENCE UNITS RANGE LAB L501.080 70-110 mg/dL High BEDSIDE GLU 313 Result Comment: MANAGEMENT OF PATIENT CARE PER NURSING PROTOCOL Performed By: #### L501.080 #### [facility] Point of Care [address] [place] [address] BEDSIDE GLUCOSE Collected: 04/29/2017 Status: F Source: [place] 5:59 AM [facility] REPOSITORY TYPE CODE TESTS RESULT OUT OF REFERENCE UNITS RANGE LAB L501.080 70-110 mg/dL High BEDSIDE GLU 279 Result Comment: MANAGEMENT OF PATIENT CARE PER NURSING PROTOCOL Performed By: #### L501.080 #### [facility] Point of Care [address] [place] [address] CBC-COMPLETE BLOOD CNT Collected: 04/29/2017 Status: F Source: [place] NO DIFF 4:00 AM [facility] REPOSITORY Order Comment: SPECIMEN OBTAINED FROM LINE DRAW TYPE CODE TESTS RESULT OUT OF RANGE REFERENCE UNITS LAB L100.1000 4.4-11.0 K/mm3 High WBC 11.6 LAB L100.1200 4.2-5.4 M/mm3 Low RBC 3.93 LAB L100.1300 12.0-15.0 g/dl Low HGB 11.6 LAB L100.1400 37-47 % Low HCT 35.0 LAB L100.1500 81-99 fL Normal MCV 89.1 LAB L100.1600 27.0-32.0 pg Normal MCH 29.5 LAB L100.1700 32-36 g/gl Normal MCHC 33.1 LAB L100.1810 11.6-14.6 % Normal RDW CV 13.1 LAB L100.1820 35.1-43.9 fl Normal RDW SD 41.9 LAB L100.1900 150-450 K/mm3 Normal PLT 208 LAB L100.2000 6.2-12.0 fl Normal MPV 11.4 Performed By: #### L100.0500 #### [facility] [address] [place], [place], [address] BASIC METABOLIC Collected: 04/29/2017 Status: F Source: [place] PROFILE (BMP) 4:00 AM [facility] REPOSITORY Order Comment: SPECIMEN OBTAINED FROM LINE DRAW TYPE CODE TESTS RESULT OUT OF RANGE REFERENCE UNITS LAB L501.0100 70-110 mg/dL High GLU 318 Result Comment: Glucose result greater than or equal to 200 mg/dL suggests DIABETES MELLITUS per A.D.A. criteria. LAB L501.1000 7-18 mg/dL Normal BUN 14 LAB L501.1100 0.55-1.02 mg/dL Normal CREAT,SERUM 0.68 Result Comment: The validity of the calculated GFR AND GFRAA in patients over 70 years has not been determined. Clinical correlation is essential. LAB L501.1110 >60 mL/min Normal EST GFR 102 Result Comment: Non- GFR Calc LAB L501.1115 >60 mL/min Normal EST GFR - AA 123 Result Comment: GFR Calc LAB L501.1255 ml/min Normal Estimated CRCL 82.99 LAB L501.1300 10-20 RATIO High BUN/CRE 20.6 LAB L501.2200 8.5-10 mg/dL Low .1 CA 8.2 LAB L501.5300 136-14 mmol/L Normal 5 NA 137 LAB L501.5600 3.5-5. mmol/L Normal 1 K 4.0 LAB L501.5900 98-107 mmol/L Normal CL 102 LAB L501.6100 21.0-3 mmol/L Normal 2.0 CO2 25.0 LAB L501.6200 5-15 Normal GAP 10 Performed By: #### L500.2500 #### [facility] [address] [place], [place], [address] PREALBUMIN Collected: 04/29/2017 Status: F Source: [place] 4:00 AM [facility] REPOSIT[facility] Order Comment: SPECIMEN OBTAINED FROM LINE DRAW TYPE CODE TESTS RESULT OUT OF RANGE REFERENCE UNITS LAB L506.0500 20.0-40.0 mg/dL Normal PREALBUMIN 27.0 Performed By: #### L506.0500 #### [facility] [address] [place], [place], [address] BEDSIDE GLUCOSE Collected: 04/29/2017 Status: F Source: [place] 1:26 AM [facility]POS[facility] TYPE CODE TESTS RESULT OUT OF REFERENCE UNITS RANGE LAB L501.080 70-110 mg/dL High BEDSIDE GLU 297 Result Comment: MANAGEMENT OF PATIENT CARE PER NURSING PROTOCOL Performed By: #### L501.080 #### [facility] Point of Care [address] [place], [place] [address] CHEST 1 VIEW Observed: 04/29/2017 Status: F Source: [place] (PORTABLE) 12:00 AM [facility] REPOSITORY [facility] Imaging Services [address] [place] [address] Chest 1 View (Portable) MR#: [id number] Acct: [id number] Name: COLLEEN MILIAN Rep #: [id number] : 1975 F 41 From: Gabe Lofton MD PCP: Timmy Park MD Status: [facility] Study: Chest 1 View (Portable) Date of Exam: 04/29/17 Exam# [id number] Ordering Dr: Stella Castanon STUDY: X-RAY CHEST REASON FOR EXAM: Female, 41 years old. Dyspnea TECHNIQUE: Single AP portable view of the chest. COMPARISON: None. FINDINGS: Endotracheal tube is seen its tip is at the lizandro and can be retracted 2 cm. An NG tube is seen its tip is below the diaphragm is in good position. Subsegmental atelectases are noted in the right and left lung bases. There is no demonstrated pleural abnormality. Normal size heart. Normal mediastinum and kishan. Normal visualized pulmonary arteries. Normal visualized aortic arch and descending thoracic aorta. Normal visualized thoracic spine. Normal visualized ribs, clavicles, and shoulders. There is no demonstrated abnormality of the visualized soft tissue structures of the upper abdomen. RAD/Chest 1 View (Portable) IMPRESSION: Endotracheal tube is seen its tip is at the lizandro and can be retracted 2 cm. Electronically Signed: Gabe Lofton MD at 3:02 EST Tel , Service support , CC: Stella Castanon; Timmy Park MD Medical Health Researcher: Signed TROPONIN-I Collected: 04/28/2017 Status: F Source: [place] 10:35 PM [facility]POS[facility] Order Comment: Has pt arrived? Y 'TROP' Serial specimen #1, #2, #3, or #4: 2 TYPE CODE TESTS RESULT OUT OF RANGE REFERENCE UNITS LAB L501.4010 <0.06 ng/mL Normal < 0.02 TROPONIN-I Result Comment: TROPONIN-I EXPECTED VALUES <0.05 NEGATIVE 0.06 - 0.59 AT RISK OF OR > OR = 0.60 SUGGEST OR Performed By: #### L501.4010 #### [facility] [address] [place], [address] BLOOD GASES BY CPS Collected: 04/28/2017 Status: F Source: [place] 9:13 PM [facility] TYPE CODE TESTS RESULT OUT OF RANGE REFERENCE UNITS LAB L9000.9990 Normal BLD GAS TYPE ART LAB L9001.1000 Normal SITE R Radial LAB L9001.1048 Normal Mode A-C LAB L9001.1050 O2 Normal Delivery Dev Vent LAB L9001.1065 Vt Normal 450 LAB L9001.1070 RR Normal 16 LAB L9001.1074 Normal FI02 50 LAB L9001.1076 Normal PEEP 5 LAB L9001.1104 Normal Results To HOSP LAB L9001.1110 7.35-7.45 pH Normal - I-STAT 7.43 LAB L9001.1210 35-45 mmHg Normal pCO2 - ISTAT 42.9 LAB L9001.1310 75-100 mmHG High PO2 I-STAT 189 LAB L9001.2300 22-26 mmol/L High HCO3 ISTAT 28.2 LAB L9001.2400 -2 to +2 mmol/L High BE ISTAT 4 LAB L9001.2415 mmol/L Normal TOTAL CO2 29 ISTAT LAB L9001.2425 95-99 % High SO2 ISTAT 100 Performed By: #### L9000.0800 #### [facility] Point of Care [address] [place] [address] BEDSIDE GLUCOSE Collected: 04/28/2017 Status: F Source: [place] 8:40 PM [facility]POSIT[facility] TYPE CODE TESTS RESULT OUT OF REFERENCE UNITS RANGE LAB L501.080 70-110 mg/dL High BEDSIDE GLU 339 Result Comment: MANAGEMENT OF PATIENT CARE PER NURSING PROTOCOL Performed By: #### L501.080 #### [facility] Point of Care [address] [place] [address] CHEST 1 VIEW Observed: 04/28/2017 Status: F Source: [place] (PORTABLE) 6:45 PM [facility] REPOSITORY [facility] Imaging Services [address] [place] [address] Chest 1 View (Portable) MR#: [id number] Acct: [id number] Name: COLLEEN MILIAN Rep #: [id number] : 1975 F 41 From: Nader Lutz PCP: Timmy Park MD Status: [facility] Study: Chest 1 View (Portable) Date of Exam: 04/28/17 Exam# [id number] Ordering Dr: Stella Castanon STUDY: X-RAY CHEST REASON FOR EXAM: Female, 41 years old. ET tube placement, OG tube placement TECHNIQUE: Single AP portable view of the chest. COMPARISON: 11/10/2016. FINDINGS: Endotracheal tube tip 1 cm above the lizandro. OG tube tip in the stomach. EKG lines overlying the chest. The lungs are clear and expanded. There is no demonstrated pleural abnormality. Normal size heart. Normal mediastinum and kishan. Normal visualized pulmonary arteries. Normal visualized aortic arch and descending thoracic aorta. Normal visualized thoracic spine. Normal visualized ribs, clavicles, and shoulders. There is no demonstrated abnormality of the visualized soft tissue structures of the upper abdomen. RAD/Chest 1 View (Portable) IMPRESSION: Endotracheal tube tip is 1 cm above the lizandro. OG tube tip in the stomach. Electronically Signed: Nader Lutz DO at 20:09 EST , Service support , CC: Stella Castanon; Timmy Park MD Medical Health Researcher: Signed BLOOD GASES BY CPS Collected: 04/28/2017 Status: F Source: [place] 6:07 PM [facility]POS[facility] TYPE CODE TESTS RESULT OUT OF RANGE REFERENCE UNITS LAB L9000.9990 Normal BLD GAS TYPE ART LAB L9001.1000 Normal SITE L Radial LAB L9001.1010 Normal VIPUL TEST POS LAB L9001.1048 Normal Mode A-C LAB L9001.1050 O2 Normal Delivery Dev Vent LAB L9001.1060 MV Normal 6.00 LAB L9001.1065 Vt Normal 450 LAB L9001.1070 RR Normal 16 LAB L9001.1074 Normal FI02 60 LAB L9001.1076 Normal PEEP 5 LAB L9001.1104 Normal Results To HOSP LAB L9001.1105 Normal Time Given 1800 LAB L9001.1110 7.35-7.45 Low pH alert - I-STAT 7.16 LAB L9001.1210 35-45 mmHg High alert pCO2 - ISTAT 75.0 LAB L9001.1310 75-100 mmHG Low PO2 I-STAT 69 LAB L9001.2300 22-26 mmol/L High HCO3 ISTAT 27.0 LAB L9001.2400 -2 to +2 mmol/L BE Normal ISTAT -2 LAB L9001.2415 mmol/L Normal TOTAL CO2 29 ISTAT LAB L9001.2425 95-99 % Low SO2 ISTAT 87 Performed By: #### L9000.0800 #### [facility] Point of Care [address] [place] [address] CONSULTATION Observed: 04/28/2017 Status: F Source: [place] 5:44 PM [facility] REPOSITORY [facility] Medical Records Department [address] [place] [address] Consultation 04/28/17 1710 MR#: [id number] Acct: [id number] Name: COLLEEN MILIAN Rep #: [id number] : 1975 41 From: Stella Castanon PCP: Timmy Park MD Status: [facility] Location: [place] [address] Problem List (1) Allergic rhinitis Status: Chronic Qualifiers: Allergic rhinitis trigger: unspecified Allergic rhinitis seasonality: unspecified seasonality Qualified Code(s): J30.9 - Allergic rhinitis, unspecified (2) Asthma Status: Chronic Qualifiers: Asthma severity: unspecified severity Asthma persistence: unspecified Asthma complication type: unspecified Qualified Code(s): J45.909 - Unspecified asthma, uncomplicated (3) Diabetes mellitus, type II Status: Chronic Qualifiers: Diabetes mellitus complication status: with unspecified complications Diabetes mellitus detention insulin use: without detention use Qualified Code(s): E11.8 - Type 2 diabetes mellitus with unspecified complications (4) Migraine Status: Chronic Qualifiers: Migraine type: unspecified Status migrainosus presence: without status migrainosus Intractability: not intractable Qualified Code(s): G43.909 - Migraine, unspecified, not intractable, without status migrainosus (5) Anxiety and depression Status: Chronic (6) Rheumatoid arthritis Status: Chronic Qualifiers: Rheumatoid arthritis location: unspecified site Rheumatoid factor presence: unspecified presence Qualified Code(s): M06.9 - Rheumatoid arthritis, unspecified (7) Overweight (BMI 25.0-29.9) Status: Chronic (8) Smoker Status: Chronic Comment: F17.200 Reason for Consult Date of Consultation: 04/28/17 Reason for Consultation: CODE blue, difficult airway in PACU History of Present Illness: The patient is a 41 y/o F w/ PMHx: Allergic Rhinitis, Asthma, Tobacco use, Diabetes mellitus type II, Overweight, Anxiety and Depression, Migraines, Rheumatoid Arthritis with history of prior facial trauma s/p right orbital floor intervention prior with ongoing difficulty breathing out of the right nare as well as right facial paresthesias associated prompting scheduled presentation to the [facility] for planned intervention per Dr. Holden. Patient underwent septoplasty with submucous resection w/ repair of internal nasal vestibular stenosis with placement of bilateral cartilage biological technician 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 Following operative intervention and transition to PACU, patient was noted to be less responsive, became notably diaphoretic and then appeared to have respiratory distress prompting intubation in the PACU. Eventually airway obtained and patient placed on ventilator. Basic labs as well as ABG were ordered and pending upon evaluation as well as EKG, CXR. Past Medical History Past Medical History (Chronic Problems): Chronic Problems Allergic rhinitis (Chronic) Asthma (Chronic) Diabetes mellitus, type II (Chronic) Migraine (Chronic) Anxiety and depression (Chronic) Rheumatoid arthritis (Chronic) Overweight (BMI 25.0-29.9) (Chronic) Smoker (Chronic) F17.200 Allergies mold Allergy (Verified 04/27/17 15:54) Itching naproxen Allergy (Verified 04/27/17 15:54) Unknown venom-honey bee [bee venom (honey bee)] Allergy (Verified 04/27/17 15:54) Swelling amoxicillin Adverse Reaction (Verified 04/27/17 15:54) Upset Stomach guaifenesin [From Robitussin] Adverse Reaction (Verified 04/27/17 15:54) Nausea Home Medications: Ambulatory Orders Medication Instructions Recorded Ranitidine [Zantac] 150 mg PO BID PRN 12/30/13 Epinephrine [Epi Pen] 0.3 mg IM X1 PRN 10/31/15 Sumatriptan Succinate [Imitrex] 50 mg PO .X1 PRN PRN 10/31/15 Surgical History: - - Septoplasty with submucous resection, repair of internal nasal vestibular stenosis with placement of bilateral cartilage biological technician grafts from the nasal septum, cholecystectomy, 3 and 3 C-sections, open reduction right orbital floor blowout fracture using combined approach with periorbital and transantral with titanium placement, mesh reconstruction. Psychiatric History: Anxiety, Depression PSYCHIATRIC NURSE PRACTITIONER History: No pertinent PSYCHIATRIC NURSE PRACTITIONER history Lives: Spouse/ Significant Other Smoking Status: Current every day smoker Tobacco Use: Cigarettes Alcohol: None Drugs: None - *Family History Maternal History Items: - - Family history is unknown as she is adopted. Paternal History Items: - - Family history is unknown as she is adopted. Review of Systems Unable to obtain accurate/complete ROS d/t: Unable to obtain ROS, post-op, sedated, being intubated. Subjective: Seated upright in the PACU bed, currently having airway placed, no breathing on her own. Objective: Physical Examination: General: not awake, not alert, unable to answer orientations questions, seated upright in the PACU bed, recent OR, sedated, airway being placed. Skin: normal color, turgor, no icterus, cyanosis except recent septoplasty with dressing to the nare region. HEENT: AT/NC except recent septoplasty intervention, dressing in place, unable to assess EOM, glazed pupils, sluggish BL, dry MM, airway being placed. Lungs: Airway being placed, symmetric rise BL w/ bagging, coarse diffusely, diminished bases to anterior and side examination, no wheezing. Heart: Tachycardic with regular rhythm; no gallop, rub audible. Abdomen: soft, overweight, NTTP, ND, hypoactive BS, no HSM. Extremities: no cyanosis, clubbing, or edema. Neurological: not awake, not alert, unable to answer orientations questions, seated upright in the PACU bed, recent OR, sedated, airway being placed; cognitive function not baseline intact; pupils glazed, sluggish, cranial nerves deferred, not responsive to stimuli, strength deferred. Psychiatric: affect appears flat, no acute evidence of depressive or anxiety feelings. - Physical Exam Vital Signs Temp Pulse Resp BP Pulse Ox 97.8 F 114 H 16 152/75 H 98 04/28/17 16:03 04/28/17 16:30 04/28/17 16:30 04/28/17 16:30 04/28/17 16:30 Oxygen Flow Rate 6 Oxygen Delivery Method Simple Mask Weight: 143 lb 11.862 oz Body Mass Index (BMI) 26.2 Finger Stick Blood Glucose 120 Intake and Output for Last 24 Hours Output Total 200 / 200 Balance -200 / -200 Laboratory Tests Past 24 Hrs WBC 11.5 H RBC 4.59 Hgb 13.3 Hct 40.9 MCV 89.1 MCH 29.0 Assessment/Plan The patient is a 41 y/o F w/ PMHx: Allergic Rhinitis, Asthma, Tobacco use, Diabetes mellitus type II, Overweight, Anxiety and Depression, Migraines, Rheumatoid Arthritis with history of prior facial trauma s/p right orbital floor intervention prior with ongoing difficulty breathing out of the right nare as well as right facial paresthesias associated prompting scheduled presentation to the [facility] for planned intervention per Dr. Holden. (1) Unresponsive with Acute Hypoxic Respiratory Failure Post- operatively: Unclear Specific etiology, possibly secondary to recent sedation, anesthetics, successfully re-intubated in the PACU w/ appropriate oxygenation following, will transition to the ICU, maintain intubation, continue sedation, pending ABG, pending CBC, BMP, cardiac enzymes, EKG, will place OG given recent nare intervention, obtain post ETT placement and OG CXR/KUB, continue ATC duonebs, PRN albuterol, ICU physician consulted. (2) Prior facial trauma s/p right orbital floor w/ ongoing difficulty breathing out of the right nare w/ R facial paresthesias: OR 04/28/[address] Holden s/p R septoplasty with submucous resection w/ repair of internal nasal vestibular stenosis with placement of bilateral cartilage biological technician 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 Post-operatively noted clindamycin, IV solumedrol and low dose lovenox regimen, will defer to Dr. Holden. (3) Chronic Asthma: Intubated as noted, maintain on ATC duonebs, PRN albuterol, HOB, IS parameters. (4) Diabetes mellitus type II: NPO status, HgbA1c pending, post-op levels 200s, accu checks q 6 hours w/ ISS. (5) Rheumatoid Arthritis: Regimen no listed in home segment, currently on IV solumedrol per Dr. Holden. (6) Tobacco Abuse: Encouraged cessation, inpatient consultation per RT, NR if desired. (7) Obesity: Weight loss and lifestyle changes will be encouraged. (8) DVT Prophylaxis: SCDs, renally dosed lovenox per Dr. Holden preference already ordered. Code Visit Office Visits / Consults: [id number] IP Consult L5 04/28/17 8409 <Electronically signed by Stella Castanon > Date Stella Castanon Cosigner Signature (if applicable): Date CC: Timmy Park MD Signed CBC W/DIFF, AUTOMATED Collected: 04/28/2017 Status: F Source: [place] 5:10 PM [facility] REPOSITORY TYPE CODE TESTS RESULT OUT OF RANGE REFERENCE UNITS LAB L100.1000 4.4-11.0 K/mm3 High WBC 20.6 LAB L100.1200 4.2-5.4 M/mm3 Normal RBC 4.38 LAB L100.1300 12.0-15.0 g/dl Normal HGB 12.5 LAB L100.1400 37-47 % Normal HCT 40.2 LAB L100.1500 81-99 fL Normal MCV 91.8 LAB L100.1600 27.0-32.0 pg Normal MCH 28.5 LAB L100.1700 32-36 g/gl Low MCHC 31.1 LAB L100.1810 11.6-14.6 % Normal RDW CV 13.4 LAB L100.1820 35.1-43.9 fl High RDW SD 44.8 LAB L100.1900 150-450 K/mm3 Normal PLT 275 LAB L100.2000 6.2-12.0 fl Normal MPV 11.1 LAB L100.2100 47-70 % High NEUT% 74.6 LAB L100.2200 19-41 % Normal LY% 21.6 LAB L100.2300 0-10 % Normal MONO% 2.2 LAB L100.2400 0-5 % Normal EO% 0.5 LAB L100.2500 0-1 % Normal BASO% 0.1 LAB L100.2550 0.0-0.9 % High IM GRAN % 1.000 Result Comment: IG% - Immature Granulocytes (promyelocytes, myelocytes and metamyelocytes) > 1% indicates that a LEFT SHIFT is Present. LAB L100.2620 2.0-7.7 X10 3/uL High Absolute Neut 15.3 LAB L100.2720 0.83-4.51 X10 3/ul Normal Absolute Lymph 4.45 Performed By: #### L100.0100 #### [facility] [address] [place], [address] BASIC METABOLIC Collected: 04/28/2017 Status: F Source: [place] PROFILE (BMP) 5:10 PM [facility] REPOS[facility] Order Comment: 'TROP' Serial specimen #1, #2, #3, or #4: 1 TYPE CODE TESTS RESULT OUT OF RANGE REFERENCE UNITS LAB L501.0100 70-110 mg/dL High GLU 388 Result Comment: Glucose result greater than or equal to 200 mg/dL suggests DIABETES MELLITUS per A.D.A. criteria. LAB L501.1000 7-18 mg/dL Normal BUN 9 LAB L501.1100 0.55-1.02 mg/dL Normal CREAT,SERUM 0.70 Result Comment: The validity of the calculated GFR AND GFRAA in patients over 70 years has not been determined. Clinical correlation is essential. LAB L501.1110 >60 mL/min Normal EST GFR 98 Result Comment: Non- GFR Calc LAB L501.1115 >60 mL/min Normal EST GFR - AA 119 Result Comment: GFR Calc LAB L501.1255 ml/min Normal Estimated CRCL 84.49 LAB L501.1300 10-20 RATIO Normal BUN/CRE 12.9 LAB L501.2200 8.5-10 mg/dL Low .1 CA 7.9 LAB L501.5300 136-14 mmol/L Low 5 NA 134 LAB L501.5600 3.5-5. mmol/L Normal 1 K 4.7 Result Comment: Slight Hemolysis, Result may be falsely increased. LAB L501.5900 98-107 mmol/L Normal CL 100 LAB L501.6100 21.0-32.0 mmol/L Normal CO2 26.0 LAB L501.6200 5-15 Normal 8 GAP Performed By: #### L500.2500, L501.4010 #### [facility] [address] [place], [place], [address] TROPONIN-I Collected: 04/28/2017 Status: F Source: [place] 5:10 PM [facility]POS[facility] Order Comment: 'TROP' Serial specimen #1, #2, #3, or #4: 1 TYPE CODE TESTS RESULT OUT OF RANGE REFERENCE UNITS LAB L501.4010 <0.06 ng/mL Normal < 0.02 TROPONIN-I Result Comment: TROPONIN-I EXPECTED VALUES <0.05 NEGATIVE 0.06 - 0.59 AT RISK OF OR > OR = 0.60 SUGGEST OR Performed By: #### L500.2500, L501.4010 #### [facility] [address] [place], [address] MAGNESIUM Collected: 04/28/2017 Status: F Source: [place] 5:10 PM [facility]POS[facility] TYPE CODE TESTS RESULT OUT OF RANGE REFERENCE UNITS LAB L501.5200 1.6-2.6 mg/dL Normal MG 1.9 Result Comment: Please note revised Magnesium reference range effective 2017. Slight Hemolysis, Result may be falsely increased. Performed By: #### L501.5200 #### [facility] [address] [place], [place], [address] BLOOD GASES BY CPS Collected: 04/28/2017 Status: F Source: [place] 5:09 PM [facility] REPOSIT[facility] TYPE CODE TESTS RESULT OUT OF RANGE REFERENCE UNITS LAB L9000.9990 Normal BLD GAS TYPE ART LAB L9001.1000 Normal SITE R Radial LAB L9001.1010 Normal VIPUL TEST POS LAB L9001.1050 O2 Normal Delivery Dev Ambu LAB L9001.1074 Normal FI02 100 LAB L9001.1104 Normal Results To HOSP MD LAB L9001.1105 Normal Time Given 1700 LAB L9001.1110 7.35-7.45 Low pH alert - I-STAT 7.06 LAB L9001.1210 35-45 mmHg High alert pCO2 - ISTAT 104.7 LAB L9001.1310 75-100 mmHG High alert PO2 I-STAT 362 LAB L9001.2300 22-26 mmol/L High HCO3 ISTAT 29.3 LAB L9001.2400 -2 to +2 mmol/L BE Normal ISTAT -1 LAB L9001.2415 mmol/L Normal TOTAL CO2 32 ISTAT LAB L9001.2425 95-99 % High SO2 ISTAT 100 Performed By: #### L9000.0800 #### [facility] Point of Care [address] [place], [place] [address] BEDSIDE GLUCOSE Collected: 04/28/2017 Status: F Source: [place] 4:50 PM [facility]POS[facility] TYPE CODE TESTS RESULT OUT OF REFERENCE UNITS RANGE LAB L501.080 70-110 mg/dL High BEDSIDE GLU 351 Result Comment: MANAGEMENT OF PATIENT CARE PER NURSING PROTOCOL Performed By: #### L501.080 #### [facility] [address] [place] [address] BEDSIDE GLUCOSE Collected: 04/28/2017 Status: F Source: [place] 4:35 PM [facility]POS[facility] TYPE CODE TESTS RESULT OUT OF REFERENCE UNITS RANGE LAB L501.080 70-110 mg/dL High BEDSIDE GLU 323 Result Comment: MANAGEMENT OF PATIENT CARE PER NURSING PROTOCOL Performed By: #### L501.080 #### [facility] [address] [place] [address] SEPTUM Observed: 04/28/2017 Status: F Source: [place] 10:25 AM [facility] REPOS[facility] Patient: COLLEEN MILIAN : 1975 (41/F) Acct Num: [id number] Phys: Roberto Holden MD Unit Num: [id number] Loc: MS3 TH299-2 Specimen: [id number] Received: 04/29/17 - 1041 Spec Type: SEPTUM TISSUES TISSUES: Nasal septum, NOS GROSS DESCRIPTION Received in fixative is one container labeled with the patient's name and designated septal cartilage. The specimen consists of multiple fragments of cartilage and bone that in aggregate measure 3 x 2.5 x 0.3 cm. The entire specimen is submitted in one cassette after decalcification. / SJ:cameron 04/29/17 TC:5 CPT: 39422, 03961 HEADER OPERATION: Septoplasty, submucous resection, placement of cartilage PRE-OP DIAGNOSIS: Nasal airway obstruction with difficulty breathing; internal nasal valve stenosis; deviated nasal septum TISSUE SUBMITTED: Septal cartilage MICROSCOPIC DESCRIPTION Slides are reviewed. MICROSCOPIC DIAGNOSIS Nasal septal cartilage, septoplasty: Fragments of hyaline cartilage and bone with no significant pathologic change ( clinically deviated septum). AM:cameron 05/01/17 Signed Billy Corey 05/01/17 <signature on file> Performed By: #### PSEP #### [facility] [address] [place], [place], [id number] CBC-COMPLETE BLOOD CNT Collected: 04/28/2017 Status: F Source: [place] NO DIFF 9:34 AM [facility] REPOSITORY TYPE CODE TESTS RESULT OUT OF RANGE REFERENCE UNITS LAB L100.1000 4.4-11.0 K/mm3 High WBC 11.5 LAB L100.1200 4.2-5.4 M/mm3 Normal RBC 4.59 LAB L100.1300 12.0-15.0 g/dl Normal HGB 13.3 LAB L100.1400 37-47 % Normal HCT 40.9 LAB L100.1500 81-99 fL Normal MCV 89.1 LAB L100.1600 27.0-32.0 pg Normal MCH 29.0 LAB L100.1700 32-36 g/gl Normal MCHC 32.5 LAB L100.1810 11.6-14.6 % Normal RDW CV 13.3 LAB L100.1820 35.1-43.9 fl Normal RDW SD 43.0 LAB L100.1900 150-450 K/mm3 Normal PLT 226 LAB L100.2000 6.2-12.0 fl Normal MPV 11.2 Performed By: #### L100.0500, L500.2500, L500.3400 #### [facility] [address] [place], [place], [address] BASIC METABOLIC Collected: 04/28/2017 Status: F Source: [place] PROFILE (BMP) 9:34 AM [facility] REPOSIT[facility] TYPE CODE TESTS RESULT OUT OF RANGE REFERENCE UNITS LAB L501.0100 70-110 mg/dL High GLU 245 Result Comment: Glucose result greater than or equal to 200 mg/dL suggests DIABETES MELLITUS per A.D.A. criteria. LAB L501.1000 7-18 mg/dL Normal BUN 8 LAB L501.1100 0.55-1.02 mg/dL Normal CREAT,SERUM 0.67 Result Comment: The validity of the calculated GFR AND GFRAA in patients over 70 years has not been determined. Clinical correlation is essential. LAB L501.1110 >60 mL/min Normal EST GFR 103 Result Comment: Non- GFR Calc LAB L501.1115 >60 mL/min Normal EST GFR - AA 125 Result Comment: GFR Calc LAB L501.1255 ml/min Normal Estimated CRCL 88.28 LAB L501.1300 10-20 RATIO Normal BUN/CRE 11.9 LAB L501.2200 8.5-10 mg/dL Low .1 CA 8.3 LAB L501.5300 136-14 mmol/L Low 5 NA 135 LAB L501.5600 3.5-5. mmol/L Normal 1 K 3.8 Result Comment: Slight Hemolysis, Result may be falsely increased. LAB L501.5900 98-107 mmol/L Normal CL 102 LAB L501.6100 21.0-32.0 mmol/L Normal CO2 23.0 LAB L501.6200 5-15 Normal GAP 10 Performed By: #### L100.0500, L500.2500, L500.3400 #### [facility] [address] [place], [place], [id number] LIVER PROFILE Collected: 04/28/2017 Status: F Source: [place] 9:34 AM [facility] REPOSITORY TYPE CODE TESTS RESULT OUT OF RANGE REFERENCE UNITS LAB L501.1500 6.4-8.2 g/dL Low T PROT 6.2 LAB L501.1800 3.2-5.0 g/dL Low ALB 3.0 LAB L501.1950 2.2-4.2 g/dL Normal GLOB 3.2 LAB L501.4100 15-37 U/L Normal AST 16 Result Comment: Slight Hemolysis, Result may be falsely increased. LAB L501.4305 45-117 U/L Normal ALK P 103 LAB L501.4405 13-56 U/L Normal ALT 33 Result Comment: Please note revised ALT reference range effective 2017. LAB L501.4600 0.20-1.00 mg/dL Normal T BILI 0.50 LAB L501.4700 0.00-0.30 mg/dL Normal D BILI 0.05 Performed By: #### L100.0500, L500.2500, L500.3400 #### [facility] [address], [place], [id number] PROTHROMBIN TIME W/INR Collected: 04/28/2017 Status: F Source: [place] 9:34 AM [facility] REPOSITORY TYPE CODE TESTS RESULT OUT OF RANGE REFERENCE UNITS LAB L300.4150 11.7-14.9 SECONDS Low PROTIME 11.5 LAB L300.4200 Normal INR 0.9 Performed By: #### L300.3900, L300.4310 #### [facility] [address] [place], [address] PARTIAL THROMBOPLAST Collected: 04/28/2017 Status: F Source: [place] TIME 9:34 AM [facility] REPOSITORY TYPE CODE TESTS RESULT OUT OF RANGE REFERENCE UNITS LAB L300.4310 24.1-36.2 Seconds Normal PTT 27.9 Performed By: #### L300.3900, L300.4310 #### [facility] [address] [place], [address] HEMOGLOBIN A1C Collected: 04/28/2017 Status: F Source: [place] 9:34 AM [facility] REPOSITORY TYPE CODE TESTS RESULT OUT OF RANGE REFERENCE UNITS LAB L501.9985 4.2-6.3 % High HGB A1C 8.5 Performed By: #### L501.9985 #### [facility] [address] [place], [address] ALLERGIES ALLERGIES DATE TYPE / CODE NAME / CODE REACTION SEVERITY SOURCE Drug guaifenesin/F006 Nausea Unknown Silver 9 Allergy/123447743( 230173(RXNORM) Community SNOMED CT) Hospital Repository Drug naproxen/G253360 Unknown Unknown Rachana 9 Allergy/708541075( 380(RXNORM) [facility] SNOMED [facility]) Hospital Repository Drug amoxicillin/F006 Upset Stomach Unknown Rachana 9 Allergy/152844717( 894384(RXNORM) [facility] SNOMED CT) Hospital Repository Drug venom-honey Swelling Unknown Silver 9 Allergy/553497167( bee/W907319153(R Community SNOMED CT) XNORM) Hospital Repository Drug bee venom Angioedema Unknown Silver 9 Allergy/130016059( protein (honey Community SNOMED CT) bee)/N435352900( Hospital RXNORM) Repository Drug mold/N840950635( Itching Unknown Silver 9 Allergy/749734619( RXNORM) [facility] SNOMED CT) Hospital Repository DRUG AMOXICILLIN GI UPSET [place] 8 INGREDI/785797976( Clinic Main SNOMED CT) [place] Repository DRUG NAPROXEN GI UPSET [place] 4 INGREDI/625051092( Clinic Main SNOMED CT) [place] Repository Miscellaneous OTHER [place] 6 Allergy/376484931( Clinic Main SNOMED CT) [place] Repository Environ/210841355( DUST [place] [address]) Clinic Main [place] Repository Environ/867857029( DUST [place] [address]) Clinic Main [place] Repository Environ/906215834( POLLEN [place] [address]) Clinic Main [place] Repository NG/721929547(SNOME AMOXICILLIN [facility]) [facility] System Repository NG/555162379(SNOME OTHER [facility]) Health System Repository NG/348750789(SNOME DUST [facility]) Health System Repository NG/519831354(SNOME DUST MITES [facility]) Health System Repository NG/990472162(SNOME NAPROXEN [facility]) Health System Repository NG/364565717(SNOME POLLEN [facility]) Health System Repository Drug NAPROXEN/7659000 Moderate [place] Allergy/479793638( 0(RXNORM) ([facility]) Modifier) Hospital (Qualifier Repository Value) Drug AMOXICILLIN/0000 Moderate [place] Allergy/551313875( 0376(RXNORM) ([facility]) Modifier) Hospital (Qualifier Repository Value) Drug ROBITUSSIN Moderate [place] Allergy/584362881( COUGH+CHEST ([facility]) CONGESTION DM Modifier) Hospital MAX/85809274(RXN (Qualifier Repository ORM) Value) ENCOUNTERS ENCOUNTERS ADMIT/DISCHARGE ACCOUNT NUMBER ADMITTING ENCOUNTER LOCATION SOURCE CLASS 04/17/2018/04/17/19 [id number] Emergency [address] ding:ED Repository 04/16/2018/04/16/19 [id number] Ambulatory [address] Repository 04/16/2018/04/20/19 [id number] Ambulatory [address] Repository 04/14/2018 [id number] Ambulatory [facility] ding:PT Repository 04/01/2018/04/01/19 [id number] Ambulatory BMSBuilding: Rachana 19 BMS.[facility] Repository 03/25/2018/03/25/20 [id number] Ambulatory BMSBuilding: Rachana 18 [facility]MS.[facility] Repository 03/18/2018 [id number] Ambulatory [facility] ding:LABSPEC Repository 03/18/2018/03/18/20 [id number] Ambulatory BMSBuilding: Silver 18 BMS.[facility] Repository 03/17/2018/03/17/20 [id number] Emergency [address] ding:ED Repository 03/12/2018/03/15/20 [id number] Ambulatory [address] Repository 03/09/2018/03/09/20 [id number] Emergency [address] ding:ED Repository 03/04/2018/03/04/20 [id number] Ambulatory BMSBuilding: Rachana 18 BMS.[facility] Repository 03/03/2018/03/03/20 [id number] Ambulatory [address] Repository 03/03/2018/03/03/20 [id number] Ambulatory [address] MEDICAL Repository CENTERBuildi ng:BAR 02/25/2018/02/26/20 [id number] Ambulatory BMSBuilding: Rachana 18 BMS.[facility] Repository 02/17/2018 [id number] Ambulatory BMSBuilding: Silver BMS.[facility] Repository 02/17/2018 [id number] Ambulatory BMSBuilding: Silver BMS.CF.[facility] Repository 02/16/2018 [id number] Ambulatory BMSBuilding: Rachana BMS.[facility] Repository 02/16/2018/11/21 [id number] Ambulatory Rachana Rachana 18 [place] ding:SDCRoom Repository : MS309 02/16/2018 [id number] Ambulatory BMSBuilding: Silver [facility] Repository 02/16/2018 [id number] Ambulatory BMSBuilding: Rachana BMS.CF.[facility] Repository 02/10/2018/02/11/20 [id number] Ambulatory [address] Other [place] Repository 02/10/2018/02/11/20 [id number] Ambulatory [address] MEDICAL Repository CENTERBuildi ng:AKXRB 02/10/2018 [id number] Ambulatory [facility] Other [place] Repository 02/10/2018/02/11/20 [id number] Ambulatory [address] MEDICAL Repository CENTERBuildi ng:AKLBB 02/10/2018/02/11/20 [id number] Ambulatory [address] Other [place] Repository 02/10/2018/02/11/20 [id number] Ambulatory [address] MEDICAL Repository CENTERBuildi ng:BAR 02/08/2018/02/09/20 [id number] Ambulatory BMSBuilding: Rahcana 18 [facility] Repository 02/01/2018/02/03/20 [id number] Ambulatory [address] Repository 01/13/2018/01/15/20 [id number] Ambulatory [address] [place] Repository 01/12/2018/01/13/20 [id number] Emergency Silver Silver [address] [place] ding:ED Repository 01/10/2018/01/11/20 [id number] Emergency Silver Rachana [address] [place] ding:ED Repository 01/04/2018/01/06/20 [id number] Ambulatory [address] [place] Repository 01/02/2018/01/03/20 [id number] Emergency Silver Silver [address] [place] ding:ED Repository 12/30/2017/12/31/19 [id number] Ambulatory [address] Main [place] Repository 12/30/2017/12/31/19 [id number] Ambulatory [address] [place] Repository 12/28/2017/10/02 [id number] Ambulatory [address] Repository 12/17/2017/12/18/19 [id number] Ambulatory BMSBuilding: Silver 18 BMS.[facility] Repository 12/04/2017/12/08/19 [id number] Ambulatory [address] Repository 11/26/2017 [id number] Ambulatory [facility] ding:CT Repository 11/15/2017/11/16/19 [id number] Emergency Silver[address] ding:ED Repository 11/12/2017 [id number] Ambulatory [facility] ding:MRI Repository 11/11/2017/11/12/19 [id number] Ambulatory [address] Repository 11/05/2017/11/06/19 [id number] Ambulatory BMSBuilding: Silver 18 BMS.[facility] Repository 10/17/2017/10/18/19 [id number] Emergency [address] ding:ED Repository 10/13/2017/10/14/[id number] ROXANNA Emergency Buildin[address] [place] [address] Room: ERBed: [facility] Repository 10/10/2017/10/11/19 [id number] Emergency [address] ding:ED Repository 10/04/2017/10/05/19 [id number] Emergency [address] ding:ED Repository 09/15/2017/09/17/19 [id number] Ambulatory [address] Repository 08/17/2017/08/18/19 [id number] Ambulatory [address] ding:PT Repository 08/14/2017/08/15/19 [id number] Ambulatory [address] Repository 08/14/2017/08/18/19 [id number] Ambulatory [address] Repository 08/08/2017 [id number] Ambulatory [facility] Repository 07/17/2017/07/19/19 [id number] Emergency [address] ding:ED Repository 07/15/2017/07/16/19 [id number] Ambulatory [address] Repository 07/15/2017/07/17/19 [id number] Ambulatory [address] Repository 07/08/2017 [id number] Ambulatory [facility] ding:CT Repository 06/30/2017/07/01/19 [id number] Emergency [address] ding:ED Repository 06/30/2017/07/01/19 [id number] Ambulatory [address] Repository 06/30/2017/07/01/19 [id number] Ambulatory [address] Repository 06/24/2017 [id number] Ambulatory [facility] ding:HPRAD Repository 06/24/2017/06/25/19 [id number] Ambulatory BMSBuilding: Silver 18 [facility] Repository 06/11/2017/06/12/19 [id number] Ambulatory BMSBuilding: Rachana 18 BMS.[facility] Repository 06/03/2017/06/09/19 [id number] Ambulatory [address] Repository 06/02/2017/06/03/19 [id number] Ambulatory [address] Repository 05/27/2017/05/27/19 [id number] Ambulatory BMSBuilding: Rachana 18 BMS.[facility] Repository 05/20/2017/05/22/19 [id number] Ambulatory [address] Repository 05/13/2017/05/13/19 [id number] Ambulatory BMSBuilding: Silver 18 BMS.[facility] Repository 05/04/2017/05/04/19 [id number] Ambulatory BMSBuilding: Silver 18 BMS.[facility] Repository 04/29/2017 [id number] Roberto Holden Ambulatory BMSBuilding: [facility] [facility] 04/29/2017 [id number] Ambulatory BMSBuilding: Silver BMS[facility] Repository 04/28/2017/05/01/19 [id number] Roberto Holden Inpatient Silver Silver 18 [facility] ding:KF9Voeq Repository : TS271Vfp: 1 04/28/2017 [id number] Roberto Holden Ambulatory BMSBuilding: Rachana BMS.CF.[facility] Repository 04/28/2017 [id number] Roberto Holden Ambulatory BMSBuilding: Silver BMS.[facility] Repository 04/28/2017 [id number] Roberto Holden Ambulatory BMSBuilding: Rachana BMS.CF.[facility] Repository 04/28/2017 [id number] Roberto Holden Ambulatory BMSBuilding: Rachana BMS.[facility] Repository 04/28/2017 [id number] Roberto Holden Ambulatory BMSBuilding: Rachana BMS.CF.[facility] Repository 04/28/2017 [id number] Roberto Holden Ambulatory BMSBuilding: Rachana BMS.CF.[facility] Repository 04/28/2017/05/01/19 [id number] Ambulatory BMSBuilding: Rachana 18 [facility] Repository 04/28/2017 [id number] Ambulatory BMSBuilding: Silver BMS.[facility] Repository PAYERS PAYERS ENCOUNTER GUARANTOR PAYER SUBSCRIBER SOURCE 04/17/2018 COLLEEN Bernard Primary COLLEEN GEORGE BOX Insurance:RADHA MILLERDOB: Community [address] MEDICARE SENIOR [id number] Hospital [address]Gkg: (815) ADVANTAPolicy Number: Repository [phone] (HP) [id number] Date:6014-12-92[id number] [place] [address]JK: 04/17/2018 Secondary COLLEEN Reich Insurance:[facility] MILLERDOB: Community *IN [facility] [id number] Hospital Number: Repository [id number] Date:3663-78-30JQVK CLAIMS [address], [place] [address]LC: 04/17/2018 Tertiary VIVIEN Reich Insurance:SELF PAY [facility] Number: Effective Repository Date:2018-04-17 04/14/2018 COLLEEN Bernard Primary COLLEEN [address] Insurance:ANTH MILLERDOB: [address] MEDICARE SENIOR [id number] Hospital [address]Qqu: (330) ADVANTAPolicy Number: Repository [phone] () [id number] Date:8849-50-13OH[address] [address]JS: 04/14/2018 Secondary COLLEEN K Rachana Insurance:MYCARE CRSC MILLERDOB: Community *IN [facility] [id number] Hospital Number: Repository [id number] Date:9920-41-49JKYM CLAIMS DEPTPO [address] [place] [address]SG: 04/14/2018 Tertiary NOT GIVENUNK Rachana Insurance:SELF PAY [facility] Hospital Number: Effective Repository Date:2018-02-08 04/01/2018 COLLEEN K Primary COLLEEN K Silver [address] Insurance:ANTHEM MILLERDOB: Community [address] SEN[place] [id number] Hospital [address]Kvh: (330) ADVANTAPolicy Number: Repository [phone] () [id number] Date:6356-94-70BD [id number] [place] [address] 737[address]SR: 04/01/2018 Secondary COLLEEN K Rachana Insurance:MYCARE CRSC MILLERDOB: Community *IN [facility] [id number] Hospital Number: Repository [id number] Date:0983-91-93FPNE CLAIMS DEPTPO [address] [place] [address]RM: 04/01/2018 Tertiary NOT GIVENUNK Rachana Insurance:SELF PAY [facility] Hospital Number: Effective Repository Date:2018-03-29 03/25/2018 COLLEEN K Primary COLLEEN K Silver [address] Insurance:ANTHEM MILLERDOB: Community [address] SEN[place] [id number] Hospital [address]Dsn: (330) ADVANTAPolicy Number: Repository [phone] () [id number] Date:6436-98-72CO [address] [address]AN: 03/25/2018 Secondary COLLEEN K Rachana Insurance:MYCARE CRSC MILLERDOB: Community *IN [facility] [id number] Hospital Number: Repository [id number] Date:5602-69-39TFRT CLAIMS DEPTPO [address] [place] [address]BV: 03/25/2018 Tertiary NOT GIVENUNK Silver Insurance:SELF PAY [facility] Number: Effective Repository Date:2018-03-24 03/18/2018 COLLEEN K Primary COLLEEN Bernard Silver [address] Insurance:ANTHEM MILLERDOB: [facility] [place] SENIOR [id number] Hospital [address]Amu: (233) ADVANTAPolicy Number: Repository [phone] () [id number] Date:5145-46-66VW [address] [place] [address]UN: 03/18/2018 Secondary COLLEEN K Silver Insurance:MYCARE CRSC MILLERDOB: Community *IN [facility] [id number] Hospital Number: Repository [id number] Date:1910-16-55DCZK CLAIMS DEPTPO [address] [place] [address]YV: 03/18/2018 Tertiary NOT GIVENUNK Silver Insurance:SELF PAY [facility] Hospital Number: Effective Repository Date:2018-03-18 03/18/2018 COLLEEN Bernard Primary COLLEEN Bernard Rachana [address] Insurance:ANTHEM MILLERDOB: Community [address] SEN[place] [id number] Hospital [address]Huv: (330) ADVANTAPolicy Number: Repository [phone] () [id number] Date:4684-21-02IL [address] [place] [address] 394[address]BK: 03/18/2018 Secondary COLLEEN K Rachana Insurance:MYCARE CRSC MILLERDOB: Community *IN [facility] [id number] Hospital Number: Repository [id number] Date:2373-27-22WIIW CLAIMS DEPTPO [address] [place] [address]BM: 03/18/2018 Tertiary NOT GIVENUNK Rachana Insurance:SELF PAY Community [facility] Hospital Number: Effective Repository Date:2018-03-18 03/17/2018 COLLEEN Bernard Primary COLLEEN Bernard Silver [address] Insurance:ANTHEM MILLERDOB: Community [address] SEN[place] [id number] Hospital [address]Jtl: (330) ADVANTAPolicy Number: Repository [phone] () [id number] Date:0433-70-39CX [address] [address]EZ: 03/17/2018 Secondary COLLEEN K Rachana Insurance:MYCARE CRSC MILLERDOB: Community *IN [facility] [id number] Hospital Number: Repository [id number] Date:2997-14-50XPEU CLAIMS DEPTPO [address] [place] [address]TI: 03/17/2018 Tertiary NOT GIVENUNK Rachana Insurance:SELF PAY [facility] Hospital Number: Effective Repository Date:2018-03-17 03/09/2018 COLLEEN Bernard Primary COLLEEN Bernard Silver [address] Insurance:ANTHEM MILLERDOB: Community [address] SEN[place] [id number] Hospital [address]Sqt: (330) ADVANTAPolicy Number: Repository [phone] () [id number] Date:0434-97-55KU[address] [address]BA: 03/09/2018 Secondary COLLEEN K Silver Insurance:MYCARE CRSC MILLERDOB: Community *IN [facility] [id number] Hospital Number: Repository [id number] Date:9241-63-82SWIL CLAIMS DEPTPO [address] [place] [address]GZ: 03/09/2018 Tertiary NOT GIVENUNK Silver Insurance:SELF PAY Community [facility] Hospital Number: Effective Repository Date:2018-03-09 03/04/2018 COLLEEN Bernard Primary COLLEEN Bernard Silver [address] Insurance:ANTHEM MILLERDOB: Community [address] SEN[place] [id number] Hospital [address]Ksp: (330) ADVANTAPolicy Number: Repository [phone] () [id number] Date:0420-31-73AG [address] [place] [address] 07[address]HH: 03/04/2018 Secondary NOT GIVENUNK Silver Insurance:SELF PAY Community [facility] Hospital Number: Effective Repository Date:2018-03-04 03/03/2018 COLLEEN Bernard Primary COLLEEN K [facility] MILLERDOB: Insurance:SHAWN MILIANDOB: Health System [id number] MEDIBLUE DUAL [id number] Repository [address] [address]Yob: MEDICAREPolicy Number: [id number] () Date: 03/03/2018 Secondary COLLEEN Joana [facility] Insurance:CARESOURCHarika MILLERDOB: Health System MEDICAIDPolicy Number: [id number] Repository [id number] Date: 02/25/2018 COLLEEN Bernard Primary COLLEEN K Silver [address] Insurance:SHAWN MILIANDOB: Community [address] SEN[place] [id number] Hospital [address]Sug: (330) ADVANTAPolicy Number: Repository [phone] () [id number] Date:8497-16-15IM [address] [place] [address] 201[address]XI: 02/25/2018 Secondary NOT GIVENUNK Silver Insurance:SELF PAY Community [facility] Hospital Number: Effective Repository Date:2018-02-25 02/17/2018 COLLEEN Bernard Primary COLLEEN K Rachana [address] Insurance:SHAWN MILIANDOB: Community [address] [id number] Hospital [address]Fsx: (330) ADVANTAPolicy Number: Repository [phone] () [id number] Date:5352-67-00JC [address] [place] [address] 87[address]UJ: 02/17/2018 Secondary NOT GIVENUNK Rachana Insurance:SELF PAY [facility] Number: Effective Repository Date:2018-02-17 02/17/2018 COLLEEN Bernard Primary COLLEEN Bernard Rachana [address] Insurance:ANTHEM MILLERDOB: Community [address] SEN[place] [id number] Hospital 14[address]Pop: (330) ADVANTAPolicy Number: Repository [phone] () [id number] Date:3762-30-03WP [address] [address]NS: 02/17/2018 Secondary NOT GIVENUNK Silver Insurance:SELF PAY [facility] Hospital Number: Effective Repository Date:2018-02-17 02/16/2018 COLLEEN K Primary COLLEEN Bernard Rachana [address] Insurance:ANTHEM MILLERDOB: Community [address] SEN[place] [id number] Hospital 997[address]Zqd: (330) ADVANTAPolicy Number: Repository [phone] () [id number] Date:8408-01-34AC [address] [address]RR: 02/16/2018 Secondary NOT GIVENUNK Silver Insurance:SELF PAY [facility] Hospital Number: Effective Repository Date:2018-02-16 02/16/2018 COLLEEN K Primary COLLEEN Dominguezoster [address] Insurance:ANTHEBENEZER MILLERDOB: Community [address] [id number] Hospital [address]Dnw: (330) ADVANTAPolicy Number: Repository [phone] () [id number] Date:7274-62-09BS [address] [address]TV: 02/16/2018 Secondary NOT GIVENUNK Rachana Insurance:SELF PAY [facility] Hospital Number: Effective Repository Date:2018-01-08 02/16/2018 COLLEEN Bernard Primary COLLEEN Dominguezoster [address] Insurance:ANTHEM MILLERDOB: Community [address] [id number] Hospital 75[address]Xev: (330) ADVANTAPolicy Number: Repository [phone] () [id number] Date:0408-29-93VU [id number] [place] [address] 624[address]IF: 02/16/2018 Secondary NOT GIVENUNK Silver Insurance:SELF PAY [facility] Hospital Number: Effective Repository Date:2018-02-16 02/16/2018 COLLEEN Bernard Primary COLLEEN Joana DominguezSilver [address] Insurance:ANTHEM MILLERDOB: Community [address] [id number] [facility] 18246Xbb: 330 ADVANTAPolicy Number: Repository [phone] () [id number] Date:2439-01-41OX [id number] [place] [address] 39834QU: 02/16/2018 Secondary NOT GIVENUNK Silver Insurance:SELF PAY [facility] Hospital Number: Effective Repository Date:2018-02-16 02/10/2018 COLLEEN Beranrd Primary COLLEEN [facility] MILLERDOB: Insurance:ANTHEM MILLERDOB: Health System [id number] MEDIBLUE DUAL [id number] Repository [address] [place] [address]Tdz: MEDICAREPolicy Number: [id number] () Date: 02/10/2018 Secondary COLLEEN [facility] Insurance:CARESOURCE MILLERDOB: Health System MEDICAIDPolicy Number: [id number] Repository [id number] Date: 02/10/2018 COLLEEN Bernard Primary COLLEEN [facility] MILLERDOB: Insurance:ANTHEM MILLERDOB: Health System [id number] MEDIBLUE DUAL [id number] Repository [address] [address]Mii: MEDICAREPolicy Number: [id number] () Date: 02/10/2018 Secondary COLLEEN [facility] Insurance:CARESOURCE MILLERDOB: Health System MEDICAIDPolicy Number: [id number] Repository [id number] Date: 02/10/2018 COLLEEN Bernard Primary COLLEEN [facility] MILLERDOB: Insurance:ANTHEM MILLERDOB: Health System [id number] MEDIBLUE DUAL [id number] Repository [address], [facility] [place] [address]Xot: MEDICAREPolicy Number: [id number] () Date: 02/10/2018 Secondary COLLEEN [facility] CHATTAROYDOB: Health System MEDICAIDPolicy Number: [id number] Repository [id number] Date: 02/08/2018 COLLEEN Bernard Primary COLLEEN Bernard Rachana [address] Insurance:MYCARE CRSC MILLERDOB: Community [address] *IN [facility] [id number] Hospital 15[address]Gzi: (330) Number: Repository [phone] () [id number] Date:8725-91-84LYNW CLAIMS DEPTPO [address] [place] [address]MK: 02/08/2018 Secondary NOT GIVENUNK Rachana Insurance:SELF PAY [facility] Number: Effective Repository Date:2018-02-08 01/12/2018 COLLEEN Bernard Primary COLLEEN Bernard Rachana [address] Insurance:MYCARE CRSC MILLERDOB: [place] [facility] [id number] Hospital 62196Qkd: (330) Number: Repository [phone] () [id number] Date:5170-32-71OMFY [address]S [address], [place] [address]QQ: 01/12/2018 Secondary NOT GIVENUNK Silver Insurance:SELF PAY [facility] Number: Effective Repository Date:2018-01-12 01/10/2018 COLLEEN Bernard Primary COLLEEN Bernard Rachana [address] Insurance:MYCARE CRSC MILLERDOB: [place] [address] [facility] [id number] Hospital 49175Gvi: (330) Number: Repository [phone] () [id number] Date:4594-00-37RMIS [address]S [address], [place] [address]NG: 01/10/2018 Secondary NOT GIVENUNK Rachana Insurance:SELF PAY [facility] Number: Effective Repository Date:2018-01-10 01/02/2018 COLLEEN Bernard Primary COLLEEN Bernard Rachana [address] Insurance:ANTHEM MILLERDOB: [place] [address] [facility] [id number] Hospital 32323Dhx: 330 [employer]ANTAP[employer]icy Number: Repository [phone] () [id number] Date:9419-23-63[address] [place] [address]UC: 01/02/2018 Secondary NOT GIVENUNK Silver Insurance:SELF PAY [facility] Number: Effective Repository Date:2018-01-02 12/17/2017 COLLEEN Bernard Primary COLLEEN Bernard Silver [address] Insurance:ANTHEM MILLERDOB: [facility] [place] MED[place] PPOPolicy [id number] Hospital 9[address]Scu: (330) Number: Repository [phone] () [id number] Date:0149-67-81DZ[address] [address]WU: 12/17/2017 Secondary NOT GIVENUNK Silver Insurance:SELF PAY [facility] Number: Effective Repository Date:2017-12-15 11/26/2017 COLLEEN Bernard Primary COLLEEN Bernard Rachana [address] Insurance:ANTHEM MILLERDOB: [place] [facility] [place] PPOP[facility]icy [id number] Hospital 405[address]Mwq: (330) Number: Repository [phone] () [id number] Date:6255-67-93Q[id number] [place] [address] 98951AQ: 11/26/2017 Secondary NOT GIVENUNK Silver Insurance:[facility]LF [facility] Number: Effective Repository Date:2017-11-06 11/15/2017 COLLEEN Bernard Primary COLLEEN Bernard Rachana [address] Insurance:ANTHEM MILLERDOB: [place] [address] PPOPolicy [id number] Hospital 964[address]Ldg: (330) Number: Repository [phone] () [id number] Date:6654-98-28FF [facility] [id number] [place] [address] 16678GO: 11/15/2017 Secondary NOT GIVENUNK Rachana Insurance:SELF PAY [facility] Number: Effective Repository Date:2017-11-15 11/12/2017 COLLEEN Bernard Primary COLLEEN Bernard Silver [address] Insurance:ANTHEM MILLERDOB: [place] [address] PPOPolicy [id number] Hospital 795[address]Gln: (330) Number: Repository [phone] () [id number] Date:4064-24-85JP[address] [address]BH: 11/12/2017 Secondary NOT GIVENUNK Rachana Insurance:SELF PAY [facility] Number: Effective Repository Date:2017-11-05 11/05/2017 COLLEEN K Primary COLLEEN Bernard Rachana [address] Insurance:ANTHEM MILLERDOB: [place] [address] PPOPolicy [id number] Hospital 23784Hrw: (330) Number: Repository [phone] () [id number] Date:3258-09-64PC [address] [address]ZT: 11/05/2017 Secondary COLLEEN K Rachana [facility]: Community *IN [facility] [id number] Hospital Number: Repository [id number] Date:3577-60-20YSGW [address]S [address], [place] [address]SV: 11/05/2017 Tertiary NOT GIVENUNK Silver Insurance:SELF PAY [facility] Number: Effective Repository Date:2017-11-05 10/17/2017 COLLEEN Bernard Primary COLLEEN Bernrad Silver [address] Insurance:ANTHEM MILLERDOB: [place] [address] PPOPolicy [id number] Hospital 270[address]Che: (330) Number: Repository [phone] () [id number] Date:2852-04-25[id number] [place] [address] 05115UB: 10/17/2017 Secondary NOT GIVENUNK Rachana Insurance:SELF PAY [facility] Number: Effective Repository Date:2017-10-17 10/13/2017 [facility] Primary [facility]EN [facility] Insurance:ANTHEM SANTINO MILLERDOB: [facility] [place] MEDICARE [id number] [address], [place] [address]Ypu: Number: [place] [id number] () Date:Plan Name: 10/10/2017 COLLEEN Bernard Primary COLLEEN [address] Insurance:ANTHEM RUKHSANADOB: [place] [address] MED[place]ARE [facility] [id number] Hospital [address]68[address]Uur: (330) Number: Repository [phone] () [id number] Date:1712-90-28LV [address] [address]MK: 10/10/2017 Secondary COLLEEN Bernard Silver Insurance:MYCARE CRSC MILLERDOB: Community *IN [facility] [id number] Hospital Number: Repository [id number] Date:2113-67-46COCQ CLAIMS [address], [place] [address]MP: 10/10/2017 Tertiary NOT GIVENUNK Rachana Insurance:SELF PAY [facility] Number: Effective Repository Date:2017-10-10 10/04/2017 COLLEEN Bernard Primary COLLEEN [address] Insurance:MYCARE CRSC MILLERDOB: [place] [address] [facility] [id number] Hospital 55181Nwg: (330) Number: Repository [phone] () [id number] Date:6647-90-13SPXN [address]S [address], [place] [address]ZY: 10/04/2017 Secondary NOT GIVENUNK Rachana Insurance:SELF PAY [facility] Number: Effective Repository Date:2017-10-04 08/17/2017 COLLEEN Bernard Primary COLLEEN Bernard Silver [address] Insurance:MYCARE CRSC MILLERDOB: [place] [address] [facility] [id number] Hospital [address]Jyc: (330) Number: Repository [phone] () [id number] Date:4796-38-81KGXD [address]S [address], [place] [address]JT: 08/17/2017 Secondary NOT GIVENUNK Rachana Insurance:SELF PAY [facility] Number: Effective Repository Date:2017-06-25 07/17/2017 COLLEEN Bernard Primary COLLEEN Bernard Rachana [address] Insurance:MYCARE CRSC MILLERDOB: [place] [address] [facility] [id number] Hospital 20111Drn: (330) Number: Repository [phone] () [id number] Date:3360-57-53XCTH [address]S [address] [address]TB: 07/17/2017 Secondary NOT GIVENUNK Silver Insurance:SELF PAY [facility] Number: Effective Repository Date:2017-07-17 07/08/2017 COLLEEN K Primary COLLEEN Bernard Rachana [address] Insurance:MYCARE CRSC MILLERDOB: [place] [address] [facility] [id number] Hospital [address]Tnz: (330) Number: Repository [phone] () [id number] Date:2264-47-13ZBVG CLAIMS [address] [address]CT: 07/08/2017 Secondary NOT GIVENUNK Silver Insurance:SELF PAY [facility] Number: Effective Repository Date:2017-06-24 06/30/2017 COLLEEN Bernard Primary COLLEEN Bernard Silver [address] Insurance:MYCARE CRSC MILLERDOB: [place] [address] [facility] [id number] Hospital 31188Tfs: (330) Number: Repository [phone] () [id number] Date:2933-92-56QEZT [address]S [address], [place] [address]EO: 06/30/2017 Secondary NOT GIVENUNK Silver Insurance:SELF PAY [facility] Number: Effective Repository Date:2017-06-30 06/24/2017 COLLEEN Bernard Primary COLLEEN Bernard Silver [address] Insurance:MYCARE CRSC MILLERDOB: [place] [address] [facility] [id number] Hospital [address]Olk: (330) Number: Repository [phone] () [id number] Date:2545-87-00KAOA CLAIMS [address] [address]RG: 06/24/2017 Secondary NOT GIVENUNK Rachana Insurance:SELF PAY [facility] Number: Effective Repository Date:2017-06-24 06/24/2017 COLLEEN Bernard Primary COLLEEN Bernard Rachana [address] Insurance:MYCARE CRSC MILLERDOB: [place] [address] [facility] [id number] Hospital 19140Ygj: (330) Number: Repository [phone] () [id number] Date:1590-69-98NNXC [address]S [address], [place] [address]RF: 06/24/2017 Secondary NOT GIVENUNK Rachana Insurance:SELF PAY [facility] Number: Effective Repository Date:2017-06-24 06/11/2017 COLLEEN Bernard Primary COLLEEN Bernard Rachana [address] Insurance:MYCARE CRSC MILLERDOB: [place] [address] [facility] [id number] Hospital 28[address]Saz: (330) Number: Repository [phone] () [id number] Date:6721-72-90ZAEH [address]S [address], [place] [address]ZE: 06/11/2017 Secondary NOT GIVENUNK Rachana Insurance:SELF PAY [facility] Number: Effective Repository Date:2017-06-10 05/27/2017 COLLEEN Bernard Primary COLLEEN Bernard Silver [address] Insurance:MYCARE CRSC MILLERDOB: [place] [address] [facility] [id number] Hospital [address]Hgq: (330) Number: Repository [phone] () [id number] Date:6098-89-53DPJR [address]S [address] [address]ZC: 05/27/2017 Secondary NOT GIVENUNK Rachana Insurance:SELF PAY [facility] Number: Effective Repository Date:2017-05-13 05/13/2017 COLLEEN K Primary COLLEEN Bernard Silver [address] Insurance:MYCARE CRSC MILLERDOB: [place] [address] [facility] [id number] Hospital 06396Xdg: (330) Number: Repository [phone] () [id number] Date:5030-00-94KJOS [address], [place] [address]QR: 05/13/2017 Secondary NOT GIVENUNK Rachana Insurance:SELF PAY [facility] Number: Effective Repository Date:2017-05-04 05/04/2017 COLLEEN K Primary COLLEEN Bernard Rachana [address] Insurance:MYCARE CRSC MILLERDOB: [place] [address] [facility] [id number] Hospital 27684Iqn: (330) Number: Repository [phone] () [id number] Date:7549-89-30HHRI [address]S [address] [address]OJ: 05/04/2017 Secondary NOT GIVENUNK Silver Insurance:SELF PAY [facility] Number: Effective Repository Date:2017-05-04 04/29/2017 COLLEEN Bernard Primary COLLEEN Bernard Rachana [address] Insurance:MYCARE CRSC MILLERDOB: [place] [address] [facility] [id number] Hospital 70653Xvn: (330) Number: Repository [phone] () [id number] Date:1276-18-35WGGG [address]S [address] [address]UO: 04/29/2017 Secondary NOT GIVENUNK Rachana Insurance:SELF PAY [facility] Number: Effective Repository Date:2017-04-29 04/29/2017 COLLEEN K Primary COLLEEN K Silver [address] Insurance:MYCARE CRSC MILLERDOB: [place] [address] [facility] [id number] Hospital 7[address]Tch: (330) Number: Repository [phone] () [id number] Date:6602-05-16VJFJ [address]S [address] [address]DH: 04/29/2017 Secondary NOT GIVENUNK Silver Insurance:SELF PAY [facility] Number: Effective Repository Date:2017-04-29 04/28/2017 COLLEEN K Primary COLLEEN Bernard Silver [address] Insurance:MYCARE CRSC MILLERDOB: [place] [address] [facility] [id number] Hospital [address]60[address]Zrm: (330) Number: Repository [phone] () [id number] Date:8137-46-74VZUZ [address]S [address] [address]OE: 04/28/2017 Secondary NOT GIVENUNK Rachana Insurance:SELF PAY [facility] Number: Effective Repository Date:2017-03-18 04/28/2017 COLLEEN K Primary COLLEEN Bernard Silver [address] Insurance:MYCARE CRSC MILLERDOB: [place] [address] [facility] [id number] Hospital [address]120Fdy: (330) Number: Repository [phone] () [id number] Date:2964-95-91YWFJ CLAIMS [address] [address]FK: 04/28/2017 Secondary NOT GIVENUNK Rachana Insurance:SELF PAY [facility] Number: Effective Repository Date:2017-04-27 04/28/2017 COLLEEN Bernard Primary COLLEEN Bernard Rachana [address] Insurance:MYCARE CRSC MILLERDOB: [place] [address] [facility] [id number] Hospital 71986Zpk: (330) Number: Repository [phone] () [id number] Date:7982-58-55XOCC [address]S [address] [address]OW: 04/28/2017 Secondary NOT GIVENUNK Silver Insurance:SELF PAY [facility] Number: Effective Repository Date:2017-04-28 04/28/2017 COLLEEN Bernard Primary COLLEEN Bernard Silver [address] Insurance:MYCARE CRSC MILLERDOB: [place] [address] [facility] [id number] Hospital 14931Hvl: (330) Number: Repository [phone] () [id number] Date:2433-48-43ZLLH [address]S [address] [address]PN: 04/28/2017 Secondary NOT GIVENUNK Silver Insurance:SELF PAY [facility] Number: Effective Repository Date:2017-04-28 04/28/2017 COLLEEN Bernard Primary COLLEEN Bernard Silver [address] Insurance:MYCARE CRSC MILLERDOB: [place] [address] [facility] [id number] Hospital 44906Ssa: (330) Number: Repository [phone] () [id number] Date:5681-34-26YXTY [address]S [address] [address]BV: 04/28/2017 Secondary NOT GIVENUNK Rachana Insurance:SELF PAY [facility] Number: Effective Repository Date:2017-04-28 04/28/2017 COLLEEN Bernard Primary COLLEEN Bernard Rachana [address] Insurance:MYCARE CRSC MILLERDOB: [place] [address] [facility] [id number] Hospital 590[address]Hwe: (330) Number: Repository [phone] () [id number] Date:6557-67-37NSVQ [address]S [address] [address]LR: 04/28/2017 Secondary NOT GIVENUNK Silver Insurance:SELF PAY [facility] Number: Effective Repository Date:2017-04-28 04/28/2017 COLLEEN Joana Primary COLLEEN K Silver [address] Insurance:MYCARE CRSC MILLERDOB: [place] [address] [facility] [id number] Hospital [address]Ezs: (330) Number: Repository [phone] () [id number] Date:2946-44-84KGPV [address]S [address] [address]OT: 04/28/2017 Secondary NOT GIVENUNK Rachana Insurance:SELF PAY [facility] Number: Effective Repository Date:2017-04-28 04/28/2017 COLLEEN Joana Primary COLLEEN K Silver [address] Insurance:MYCARE CRSC MILLERDOB: [place] [address] [facility] [id number] Hospital 6[address]Veo: (330) Number: Repository [phone] () [id number] Date:4233-86-28SPRR [address]S [address] [address]CO: 04/28/2017 Secondary NOT GIVENUNK Rachana Insurance:SELF PAY [facility] Number: Effective Repository Date:2017-04-28 04/28/2017 COLLEEN K Primary COLLEEN K Silver [address] Insurance:MYCARE CRSC MILLERDOB: [place] [address] [facility] [id number] Hospital [address]Ckk: (330) Number: Repository [phone] () [id number] Date:9055-79-34ARBM [address]S [address] [address]RL: 04/28/2017 Secondary NOT GIVENUNK Silver Insurance:SELF PAY Community [facility] Number: Effective Repository Date:2017-04-28
== END 2018-03-09 14:52 | disposition home or self-care (01) ==
LOC: ED 12:58
PROVIDERS: Emergency Provider Emergency Medicine; Family Provider Internal Medicine; PCP Internal Medicine
DX: M25.552 Pain in left hip (principal); M48.07 Spinal stenosis, lumbosacral region; E11.9 Type 2 diabetes mellitus without complications; Z79.4 Long term (current) use of insulin; Z79.899 Other long term (current) drug therapy; Z72.0 Tobacco use
CPT/HCPCS: 72100; 73502; 99283

== ENCOUNTER 2018-03-17 15:54 | Emergency (ER) | payer MEDICARE, SELFPAY ==
[2018-03-17 15:56] VITALS: BP 131/91; PULSE 99; RESP 18; TEMP 36.4; O2SAT 95; BMI 28.3
--- NOTE | 2018-03-17 16:20 | RAD_ITS ---
STUDY: X-RAY - RIGHT HIP REASON FOR EXAM: Female, 42 years old. Fall one week ago, still having right hip pain. TECHNIQUE: Frontal pelvis, frontal and frog-leg lateral right hip. COMPARISON: None. FINDINGS: Central pelvic IUD. Pelvic phleboliths. Mild low lumbar scoliosis. Normal appearance of the bony pelvis and sacrum including pubic rami. Normal symmetric appearance of the hip joints bilaterally without degeneration. Proximal right femur intact. Periarticular soft tissues normal. RAD/HIP, UNI W/ Pelvis 2-3 Views IMPRESSION: No radiographic evidence of acute right hip injury. Electronically Signed: Roldan Christine MD at 17:29 EST Tel , Service support ,
[2018-03-17] MEDS: Orphenadrine 60 MG/2 ML Ampul IM (16:23)
[2018-03-17] MEDS: Ketorolac 30 MG/ML Syringe IM (16:24)
--- NOTE | 2018-03-17 16:26 | ED.DCSUM_ITS ---
- ER Visit Summary Date of Service: 03/17/18 Chief Complaint: Back pain History of Present Illness: The patient is a 42 F presenting with back pain. Patient states she fell down a flight of stairs 8 days ago. She was seen in the ED at that time. She had x-rays of her back and left hip at that time. She states she continues to have back pain. She states she intermittently has right hip pain as well. When she fell she did not hit her head or lose consciousness. She has been taking ibuprofen at home. She states the pain is worse with prolonged standing or walking. She also complains of pain behind her right ear. She had surgery on 02/16/[address] Holden. She has an appointment for follow-up tomorrow. Denies other complaints. Physical Examination: Vitals are stable. Patient is afebrile. Alert no acute distress. HEENT exam scabbing behind right ear, no erythema or drainage Neck is supple. Lungs are clear and equal bilaterally. Heart is regular rate and rhythm. Abdomen is soft nontender nondistended. Back: Bilateral paraspinal lumbar muscle tenderness with no midline tenderness. Negative straight leg raise Extremities mild bilateral hip tenderness, active full range of motion. Normal distal pulses Skin is warm and dry. No focal neurologic deficit. Remainder of exam is unremarkable. Emergency Department Course and Treatment: Patient was given Toradol, Norflex IM. Right hip x-ray shows no acute process. Patient is given Flexeril. She is advised to follow-up with her primary care physician. Advised return to ED if worsening complaints. Disposition: Discharge home Impression: Lumbar strain, bilateral hip contusion This note was generated with [employer] dictation software. It may contain incorrect words, spelling, and punctuation that were not noted in review of the chart prior to signing ED Disposition - Plan for ED Patient: Chief Complaint: Back Instructions: ED Sprain Strain Lumbar Prescriptions: Cyclobenzaprine [Flexeril] 10 mg PO TID PRN #20 tablet PRN Reason: Muscle Spasm Referrals: Timmy Park MD [Primary Care Provider] -
--- NOTE | 2018-03-17 17:40 | ED.DEP ---
ED Disposition - Plan for ED Patient: Chief Complaint: Back Instructions: ED Sprain Strain Lumbar Prescriptions: Cyclobenzaprine [Flexeril] 10 mg PO TID PRN #20 tablet PRN Reason: Muscle Spasm Referrals: Timmy Park MD [Primary Care Provider] -
== END 2018-03-17 18:08 | disposition home or self-care (01) ==
LOC: ED 17:15
PROVIDERS: Emergency Provider Emergency Medicine; Family Provider Internal Medicine; PCP Internal Medicine
DX: S39.012A Strain of muscle, fascia and tendon of lower back, initial encounter (principal); S70.02XA Contusion of left hip, initial encounter; S70.01XA Contusion of right hip, initial encounter; W10.9XXA Fall (on) (from) unspecified stairs and steps, initial encounter; E11.9 Type 2 diabetes mellitus without complications; F41.9 Anxiety disorder, unspecified; Z79.4 Long term (current) use of insulin; Z79.899 Other long term (current) drug therapy; Z72.0 Tobacco use
CPT/HCPCS: 73502; 96372; 99282

== ENCOUNTER → 2018-03-18 15:55 | Outpatient (CLI) | payer MEDICARE, SELFPAY ==
[2018-03-18 15:44] VITALS: BMI 28.3
== END ==
PROVIDERS: Family Provider Internal Medicine; PCP Internal Medicine; Referring Provider Nurse Practitioner Family; Visit Provider Nurse Practitioner Family
DX: T81.31XA Disruption of external operation (surgical) wound, not elsewhere classified, initial encounter (principal); J34.89 Other specified disorders of nose and nasal sinuses; F17.200 Nicotine dependence, unspecified, uncomplicated; S76.111D Strain of right quadriceps muscle, fascia and tendon, subsequent encounter
CPT/HCPCS: 87070; 87205; 97530

== ENCOUNTER 2018-04-17 09:31 | Emergency (ER) | payer MEDICARE, SELFPAY ==
[2018-04-01 15:46] VITALS: BMI 28.3
[2018-04-17 09:32] VITALS: BP 136/88; PULSE 102; RESP 18; TEMP 36.4; O2SAT 99; BMI 27.6
--- NOTE | 2018-04-17 09:47 | ED.DCSUM_ITS ---
- ER Visit Summary Date of Service: 04/17/18 Chief Complaint: [] Rectal sensation for about a week or 2 History of Present Illness: The patient is a 42 F [] history of diabetes stable she is noticed basally for a week or 2 some unspecified sense of fullness or bump to her perirectal area, when she is laying flat face down this area is at the 9 o'clock position just lateral to the anal verge, it is not painful there is no fever no cough normal bowel bladder habits no history of MRSA abscesses or other conditions and again diabetes is well-controlled with blood sugars about 150 Physical Examination: [] Febrile 150/80 General, no distress resting comfortably HEENT is generally unremarkable The neck is supple no adenopathy Cardiovascular, regular rate and rhythm Lungs, clear bilateral Abdomen, soft nontender The rectal area of the rectal exam itself shows no pain with digital rectal exam no lesions no mass, just lateral to the rectal verge there is a soft 2-3 mm papule that she points to is causing her sense of bump, there is no fluctuance no crepitance no subcu air and again the rectal exam shows no extension into the rectum the rest of the exam is unremarkable Extremities, no clubbing cyanosis or edema Neurologic, awake alert answering questions appropriately moving all 4 extremities Test Results: [] Emergency Department Course and Treatment: [] the above to her given the duration of the symptoms I explained that the etiology is unclear it could certainly could be an early lesion of some kind is currently unspecified and she needs follow-up with surgery, she is referred to Dr. Sarah, her family doctors and outpatient providers to be seen in the next few days we will start her on Bactrim DS sitz bath and to return for change in symptoms Treatment Plan: [] Disposition: [] Home stable Impression: [] 2-3 mm papule in the perirectal area This note was generated with [employer] dictation software. It may contain incorrect words, spelling, and punctuation that were not noted in review of the chart prior to signing ED Disposition - Plan for ED Patient: Chief Complaint: Abscess Referrals: Timmy Park MD [Primary Care Provider] -
--- NOTE | 2018-04-17 09:48 | ED.DEP ---
ED Disposition - Plan for ED Patient: Chief Complaint: Abscess Instructions: ED Skin Infec MRSA Suspect Conf Prescriptions: Smz/Tmp Ds [Bactrim Ds] 1 tab PO BID #14 tab Referrals: Timmy Park MD [Primary Care Provider] - Krishna Sarah MD [STAFF PHYSICIAN] -
--- OUTSIDE RECORDS SUMMARY | 2018-06-21 09:56 | XMS RPT_ITS ---
:1975 Author Organization OHIP Support Name Relationship Address Phone D Unavailable Unavailable Unavailable GRASERISRAELON Unavailable [address] + [place] [address] D Unavailable Unavailable Unavailable GRASERISRAELON Unavailable [address] + [place] [address] D Unavailable Unavailable Unavailable GRASER SABINA Unavailable [address] + [place] [address] D Unavailable Unavailable Unavailable GRASER SABINA Unavailable [address] + [place] [address] D Unavailable Unavailable Unavailable GRASER SABINA Unavailable [address] + [place] [address] D Unavailable Unavailable Unavailable GRASER SABINA Unavailable [address] + [place] [address] D Unavailable Unavailable Unavailable GRASERISRAELON Unavailable [address] + [place] [address] D Unavailable Unavailable Unavailable GRASER SABINA Unavailable [address] + [place] [address] D Unavailable Unavailable Unavailable GRASER SABINA Unavailable [address] + [place] [address] D Unavailable Unavailable Unavailable GRASER SABINA Unavailable [address] + [place] [address] D Unavailable Unavailable Unavailable GRASERISRAELON Unavailable [address] + [place] [address] D Unavailable Unavailable Unavailable GRASER SABINA Unavailable [address] + [place] [address] D Unavailable Unavailable Unavailable GRASER, SABINA Unavailable [address] + [place] [address] D Unavailable Unavailable Unavailable GRASER SABINA Unavailable [address] + [place] [address] D Unavailable Unavailable Unavailable GRASER SABINA Unavailable [address] + [place] [address] D Unavailable Unavailable Unavailable GRASERSABINA Unavailable [address] + [place] [address] D Unavailable Unavailable Unavailable SABINA GRANT Unavailable [address] + [place] [address] D Unavailable Unavailable Unavailable SABINA GRANT Unavailable [address] + [place] [address] D Unavailable Unavailable Unavailable GRASERISRAELON Unavailable [address] + [place] [address] D Unavailable Unavailable Unavailable GRASSABINA BENDER Unavailable [address] + [place] [address] D Unavailable Unavailable Unavailable SABINA GRANT Unavailable [address] + [place] [address] D Unavailable Unavailable Unavailable SABINA GRANT Unavailable [address] + [place] [address] D Unavailable Unavailable Unavailable SABINA GRANT Unavailable [address] + [place] [address] D Unavailable Unavailable Unavailable SABINA GRANT Unavailable [address] + [place] [address] D Unavailable Unavailable Unavailable SABINA GRANT Unavailable [address] + [place] [address] D Unavailable Unavailable Unavailable SABINA GRANT Unavailable [address] + [place] [address] D Unavailable Unavailable Unavailable SABINA GRANT Unavailable [address] + [place] [address] D Unavailable Unavailable Unavailable SABINA GRANT Unavailable [address] + [place] [address] GRASSSABINA BENDER Unavailable [address] + [address], [place] [id number] NOT GIVEN Unavailable Unavailable Unavailable D Unavailable Unavailable Unavailable ISRAEL GRANTON Unavailable [address] + [place] [address] D Unavailable Unavailable Unavailable ISRAEL GRANTON Unavailable [address] + [place] [address] D Unavailable Unavailable Unavailable ISRAEL GRANTON Unavailable [address] + [place] [address] D Unavailable Unavailable Unavailable GRASERISRAELON Unavailable [address] + [place] [address] D Unavailable Unavailable Unavailable GRASERISRAELON Unavailable [address] + [place] [address] D Unavailable Unavailable Unavailable GRASERISRAELON Unavailable [address] + [place] [address] D Unavailable Unavailable Unavailable GRASERISRAELON Unavailable [address] + [place] [address] D Unavailable Unavailable Unavailable GRASERISRAELON Unavailable [address] + [place] [address] D Unavailable Unavailable Unavailable GRASERISRAELON Unavailable [address] + [place] [address] D Unavailable Unavailable Unavailable GRASERISRAELON Unavailable [address] + [place] [address] D Unavailable Unavailable Unavailable GRASERISRAELON Unavailable [address] + [place] [address] D Unavailable Unavailable Unavailable ORIONERISRAELON Unavailable [address] + [place] [address] D Unavailable Unavailable Unavailable ORIONERISRAELON Unavailable [address] + [place] [address] D Unavailable Unavailable Unavailable ORIONERISRAELON Unavailable [address] + [place] [address] D Unavailable Unavailable Unavailable ORIONERISRAELON Unavailable [address] + [place] [address] D Unavailable Unavailable Unavailable ORIONERISRAELON Unavailable [address] + [place] [address] D Unavailable Unavailable Unavailable GRASERISRAELON Unavailable [address] + [place] [address] D Unavailable Unavailable Unavailable GRASERISRAELON Unavailable [address] + [place] [address] D Unavailable Unavailable Unavailable GRASERISRAELON Unavailable [address] + [place] [address] D Unavailable Unavailable Unavailable GRASERISRAELON Unavailable [address] + [place] [address] D Unavailable Unavailable Unavailable GRASERISRAELON Unavailable [address] + [place] [address] D Unavailable Unavailable Unavailable SABINA GRANT Unavailable [address] + [place] [address] D Unavailable Unavailable Unavailable ORIONERISRAELON Unavailable [address] + [place] [address] Care Team Providers Name Role Phone OMA DIOP Attending Unavailable Xavier NGUYEN, Timmy Referring Unavailable Xavier NGUYEN, Timmy Primary Care Unavailable OMA DIOP Attending Unavailable OMA DIOP Referring Unavailable Xavier NGUYEN, Timmy Primary Care Unavailable OMA DIOP Referring Unavailable Xavier NGUYEN, Timmy Primary Care Unavailable OMA DIOP Referring Unavailable Xavier NGUYEN, Timmy Primary Care Unavailable ROXANNA, DR ÁLVARO Shabazz Admitting Unavailable ROXANNA, DR ÁLVARO Shabazz Attending Unavailable PARK, LORA Referring Unavailable ROXANNA, DR ÁLVARO Shabazz Primary Care Unavailable TIMMY PARK H Consulting Unavailable PROVIDER, UNKNOWN Consulting Unavailable TIMMY PARK Attending Unavailable PARK, LORA Referring Unavailable PARK, LORA Attending Unavailable PARK, LORA Referring Unavailable PARK, LORA Referring Unavailable OLDER, PATRICIA (SWEET DOUGH MIXER) Attending Unavailable PARK, LORA Referring Unavailable PARK, LORA Referring Unavailable PARK, LORA Attending Unavailable OLDER, PATRICIA (SWEET DOUGH MIXER) Attending Unavailable OLDER, PATRICIA (SWEET DOUGH MIXER) Referring Unavailable OLDER, PATRICIA (SWEET DOUGH MIXER) Attending Unavailable OLDER, PATRICIA (SWEET DOUGH MIXER) Attending Unavailable PARKTIMMY H Attending Unavailable PARK, LORA Referring Unavailable OLDER, PATRICIA (SWEET DOUGH MIXER) Attending Unavailable PARK, LORA Referring Unavailable PARK, LORA Referring Unavailable OLDER, PATRICIA (SWEET DOUGH MIXER) Attending Unavailable PARK, LORA Referring Unavailable OLDER, PATRICIA (SWEET DOUGH MIXER) Attending Unavailable OLDER, PATRICIA (SWEET DOUGH MIXER) Attending Unavailable OLDER, PATRICIA (SWEET DOUGH MIXER) Attending Unavailable PARK, LORA Attending Unavailable PARK, LORA Referring Unavailable PARK, LORA Referring Unavailable OMA DIOP Attending Unavailable XAVIER, TIMMY Cardoza Referring Unavailable VISHNU DIOPKA Referring Unavailable OMA DIOP Referring Unavailable OMA DIOP Attending Unavailable OMA DIOP Referring Unavailable Roberto Holden Attending Unavailable Park, Timmy Primary Care Unavailable Roberto Holden Referring Unavailable Sarahi ThapaO. Consulting Unavailable SlabRoberto terrell Admitting Unavailable White, Stella Consulting Unavailable White, Stella Attending Unavailable SlabyRoberto Referring Unavailable Park, Timmy Primary Care Unavailable SlabRoberto terrell Consulting Unavailable White, Stella Attending Unavailable Slaby, Roberto Referring Unavailable Park, Timmy Primary Care Unavailable Sarahi ThapaO. Consulting Unavailable White, Stella Consulting Unavailable Slabnidhi, Roberto Admitting Unavailable Ruthy Thapa.O. Attending Unavailable SlabyRoberto Referring Unavailable Park, Timmy Primary Care Unavailable Ruthy Thapa.O. Consulting Unavailable White, Stella Consulting Unavailable Park, Timmy Primary Care Unavailable Krishna Gill Attending Unavailable Park, Timmy Primary Care Unavailable Alda Hubbard Attending Unavailable Ash, Gunjan Harika Attending Unavailable Park, Timmy Referring Unavailable Ash, Gunjan E Attending Unavailable Ash, Gunjan E Referring Unavailable Park, Timmy Primary Care Unavailable Jeff Boyd Attending Unavailable Park, Timmy Referring Unavailable Ash, Gunjan E Attending Unavailable Park, Timmy Referring Unavailable Park, Timmy Primary Care Unavailable Elio Burger Attending Unavailable SlabRoberto terrell Attending Unavailable Park, Timmy Referring Unavailable Park, Timmy Primary Care Unavailable Harinder Calle Attending Unavailable SlabRoberto terrell Admitting Unavailable SlabRoberto terrell Attending Unavailable SlabyRoberto Referring Unavailable Park, Timmy Primary Care Unavailable Ruthy Thapa.O. Consulting Unavailable Roberto Holden Consulting Unavailable SlabRoberto terrell Admitting Unavailable White, Stella Attending Unavailable SlabyRoberto Referring Unavailable Park, Timmy Primary Care Unavailable Ruthy Thapa.O. Consulting Unavailable Roberto Holedn Consulting Unavailable Roberto Holden Admitting Unavailable Roberto Holden Attending Unavailable Roberto Holden Referring Unavailable Park, Timmy Primary Care Unavailable Ruthy Thpaa.O. Consulting Unavailable Roberto Holden Consulting Unavailable Roberto Holden Admitting Unavailable White, Stella Attending Unavailable Roberto Holden Referring Unavailable Park, Timmy Primary Care Unavailable Sarahi ThapaO. Consulting Unavailable Roberto Holden Consulting Unavailable Roberto Holden Attending Unavailable Park, Timmy Referring Unavailable Park, Timmy Primary Care Unavailable Slaby, Roberto Admitting Unavailable Slaby, Roberto Attending Unavailable Slaby, Roberto Referring Unavailable Park, Timmy Primary Care Unavailable Ephraim Tai D.O. Consulting Unavailable Slaby, Roberto Consulting Unavailable Slaby, Roberto Admitting Unavailable Slaby, Roberto Attending Unavailable Slaby, Roberto Referring Unavailable Park, Timmy Primary Care Unavailable Ephraim Tai D.O. Consulting Unavailable Lg, Stella Consulting Unavailable Slaby, Roberto Consulting Unavailable Slaby, Roberto Attending Unavailable Park, Timmy Referring Unavailable Park, Timmy Primary Care Unavailable Slaby, Roberto Attending Unavailable Park, Timmy Referring Unavailable Park, Timmy Primary Care Unavailable Demetri Sequeira Attending Unavailable Slaby, Roberto Referring Unavailable Slaby, Roberto Attending Unavailable Park, Timmy Referring Unavailable Park, Timmy Primary Care Unavailable Harinder Alvarez Attending Unavailable Park, Timmy Referring Unavailable Park, Timmy Primary Care Unavailable Harinder Alvarez Attending Unavailable Park, Timmy Primary Care Unavailable Slaby, Roberto Attending Unavailable Park, Timmy Primary Care Unavailable Slaby, Roberto Referring Unavailable Park, Timmy Primary Care Unavailable [...] Jacques Attending Unavailable Lazaro Jacques Referring Unavailable SlabyRoberto Attending Unavailable Park, Timmy Referring Unavailable Park, Timmy Primary Care Unavailable Prebish, Nitza CNC FIELD SERVICE ENGINEER-C Attending Unavailable Prebish, Nitza CNC FIELD SERVICE ENGINEER-C Referring Unavailable Park, Timmy Primary Care Unavailable SlabRoberto terrell Attending Unavailable SlabRoberto terrell Referring Unavailable Park, Timmy Primary Care Unavailable Park, Timmy Primary Care Unavailable Krzysztof Ann Attending Unavailable SlabRoberto terrell Attending Unavailable Park, Timmy Referring Unavailable Park, Timmy Primary Care Unavailable Park, Timmy Primary Care Unavailable Elio Burger Attending Unavailable Park, Timmy Primary Care Unavailable Mario Rothman Attending Unavailable Park, Timmy Primary Care Unavailable Mario Rothman Attending Unavailable Roberto Holden Referring Unavailable Park, Timmy Primary Care Unavailable DeHorta, Perez Consulting Unavailable Neymar, Clarke Attending Unavailable Ashelfah, Ghasem Consulting Unavailable Chicorelli, Hazel Attending Unavailable Park, Timmy Referring Unavailable Chicorelli, Hazel Attending Unavailable Park, Timmy Primary Care Unavailable Ashelfah, Ghasem Attending Unavailable Roberto Holden Referring Unavailable Park, Timmy Primary Care Unavailable DeHorta, Perez Consulting Unavailable SlabRoberto terrell Consulting Unavailable Neymar, Clarke Attending Unavailable Roberto Holden Referring Unavailable Park, Tmimy Primary Care Unavailable DeHorta, Perez Consulting Unavailable [...] Holden Referring Unavailable Gunjan Aleman Attending Unavailable Park, Timmy Referring Unavailable PROBLEMS PROBLEMS DATE TYPE CONDITION / CODE ATTENDING STATUS SOURCE 04/21/2018 Unknown S76.111D - Strain of Anurag, Active [place] right quadriceps Hazel [facility] muscle, fascia and Hospital tendon, subsequent Repository encounter / S76.111D(ICD-10) 06/03/2017 Active Type 2 diabetes NA Active [facility] mellitus with [facility] Main hyperglycemia / [place] E11.65(ICD-10) Repository 06/03/2017 Active [facility] (current) NA Active [place] use of insulin / [facility] Z79.4(ICD-10) [place] Repository 04/16/2018 Active Localized edema / NA Active [facility] R60.0(ICD-10) [facility] [place] Repository 04/16/2018 Active Pain in unspecified NA Active [place] joint / [facility] M25.50(ICD-10) [place] Repository 04/16/2018 Active Irregular NA Active [facility] menstruation, [facility] unspecified / [place] N92.6(ICD-10) Repository 03/19/2018 Unknown J34.89 - Other Ash, Active [place] specified disorders Gunjan [facility] of nose and nasal Hospital sinuses / Repository J34.89(ICD-10) 03/19/2018 Unknown T81.31XA - Ash, Active [place] Disruption of Gunjan E Community external operation [...] Encounter HuaDemetri finney Active [place] for preprocedural [facility] cardiovascular Hospital examination / Repository Z01.810(ICD-10) 02/10/2018 Admitting Unknown / DIOP, Active [place] [facility] diagnosis UNK(Unknown) [facility] Repository 01/12/2018 Unknown L02.91 - Cutaneous Le, Mario Active [place] abscess, unspecified Community / L02.91(ICD-10) Hospital Repository 12/21/2017 Unknown R06.00 - Dyspnea, Roberto Holden Active [place] unspecified / Community R06.00(ICD-10) Hospital Repository 12/21/2017 Unknown J98.8 - Other Roberto Holden Active [place] specified [facility] respiratory Hospital disorders / Repository J98.8(ICD-10) 12/21/2017 Unknown S02.31XS - Fracture Roberto Holden Active [place] of orbital floor, Community right side, [facility] Hospital / S02.31XS(ICD-10) Repository 01/27/2018 Unknown M25.551 - Pain in [place], Active [place] right hip / [facility] M25.551(ICD-10) Hospital Repository 08/20/2017 Unknown M50.30 - Other John, Active [place] cervical disc [facility] degeneration, Hospital unspecified cervical Repository region / M50.30(ICD-10) 08/14/2017 Active Restless legs NA Active [facility] syndrome / [facility] G25.81(ICD-10) [place] Repository 07/15/2017 Active 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 / [place] Z79.899(ICD-10) Repository 07/01/2017 Unknown K08.89 - Other Shundry, Active [place] specified disorders [facility] and Hospital supporting Repository structures / K08.89(ICD-10) 06/30/2017 Active Unknown / NA Active [facility] UNK(Unknown) Clinic Main [place] Repository 06/24/2017 Unknown M25.562 - Pain in Harinder Alvarez Active [place] left knee / Community M25.562(ICD-10) Hospital Repository 06/24/2017 Unknown J95.821 - Acute Roberto Holden Active [place] postprocedural [facility] respiratory failure Hospital / J95.821(ICD-10) Repository 06/24/2017 Unknown J34.2 - Deviated Roberto Holden Active [place] nasal septum / Community J34.2(ICD-10) Hospital Repository 05/19/2017 Unknown E11.9 - Type 2 White, Stella Active [place] diabetes mellitus [facility] without Hospital complications / Repository E11.9(ICD-10) 06/02/2017 Unknown R00.0 - Tachycardia, Hua, Thayer Active [place] unspecified / Community R00.0(ICD-10) Hospital Repository PROCEDURES PROCEDURES No Procedure Records FoundRESULTS RESULTS EMERGENCY DEPARTMENT Observed: 04/23/2018 Status: F Source: [facility] SUMMARY 11:03 PM [facility] REPOSITORY [facility] Medical Records Department [address] [place] [address] Emergency Department Summary 04/23/18 2136 MR#: [id number] Acct: [id number] Name: COLLEEN MILIAN Rep #: [id number] : 1975 42 From: Harinder Calle MD PCP: Timmy Park MD Status: DEP ER - ER Visit Summary Date of Service: 04/23/18 Chief Complaint: Rectal bleeding History of Present Illness: The patient is a 42 F who presents to the emergency department with bright red blood per rectum. Patient states that she was straining to move her bowels tonight. She states shortly after, she noticed bright red blood with her bowel movements. She denies any abdominal pain. She is not on anticoagulants. She denies any fevers or chills. She has had some mild nausea recently, but states this is not uncommon for her. She has no history of Crohn's or ulcerative colitis. Physical Examination: Vital signs reviewed General: Well-nourished, well-developed Head: Normocephalic, atraumatic Eyes: Pupils equal and reactive, extraocular muscles intact Neck, supple, no lymphadenopathy Heart: Regular rate and rhythm Respiratory: No distress, clear bilaterally Abdomen: Soft, nontender, nondistended, no peritoneal signs Rectal exam: Patient does have a fissure with mild active bleeding at the 6 o'clock position. There is no hemorrhoid. There is no evidence of abscess. Back: Nontender Extremities: Nontender, no edema, no cords Skin: Normal color no rash Neuro: Alert and oriented, no focal or lateralizing deficits Test Results: [] Emergency Department Course and Treatment: Patient does have evidence of bleeding fissure. It is very mild. She is not on anticoagulants. There is no evidence of abscess. Patient will continue sits baths and topical Anusol ointment. She will be placed on stool softeners. She was counseled on concerning symptoms and reasons to return. She will be discharged to home. Treatment Plan: [] Disposition: Discharge Impression: Anal fissure This note was generated with Flow[employer] dictation software. It may contain incorrect words, spelling, and punctuation that were not noted in review of the chart prior to signing ED Disposition - Plan for ED Patient: Chief Complaint: GI Bleed Instructions: ED Hematochezia Stable Prescriptions: Ondansetron [Zofran Odt] 4 mg PO Q8H PRN PRN #10 tab PRN Reason: Nausea Docusate Sodium [Colace] 100 mg PO DAILY #20 cap Hydrocortisone Acetate Cream [Anusol Hc] 1 applic TOPICAL TID PRN PRN #1 tube PRN Reason: Rectal Discomfort Referrals: Timmy Park MD [Primary Care Provider] - What to do if you have Problems For any increased pain, shortness of breath, bleeding, nausea or vomiting, chest pain, or any unexpected problems, contact your Primary Care Provider. Call [facility] ([phone]) or report to the closest Emergency Room. Call 911 if necessary. 04/23/18 3097 <Electronically signed by Harinder Calle MD> Date Harinder Calle MD Cosigner Signature (If Indicated): Date CC: Timmy Park MD PLASTIC SURGERY Observed: 04/23/2018 Status: F Source: [facility] VISIT REPORT 12:37 PM [facility] REPOSITORY [facility]astic [facility] Re[facility]ive Surgery [address] [facility] [address] [place] [address] OFFICE VISIT Date of Service: 04/21/18 MR#: [id number] Acct: [id number] Name: RUKHSANACOLLEEN Joana Rep #: [id number] : 1975 Provider: Roberto Holden MD Age/Sex: 42/F Location: [facility] Status: Signed Intake Vital Signs04/21/18 Body Mass Index (BMI) 27.6 04/21/18 Blood Pressure 124/86 H H 04/21/18 Blood Pressure Location Lt brachial 04/21/18 Blood Pressure Position Sitting 04/21/18 Respiratory Rate 18 Intake Visit Reasons: post op surgery 02/16/18 Dyehouse Worker Required: No Accompanied by: None Is patient in pain?: Yes (NASAL PAIN BURNING) Pain scale (1- 10): 7 Allergies bee venom protein (honey bee) Allergy (Verified 04/21/18 09:26) Angioedema mold Allergy (Verified 04/21/18 09:26) Itching naproxen Allergy (Verified 04/21/18 09:26) Unknown venom-honey bee [bee venom (honey bee)] Allergy (Verified 04/21/18 09:26) Swelling amoxicillin Adverse Reaction (Verified 04/21/18 09:26) Upset Stomach guaifenesin [From Robitussin] Adverse Reaction (Verified 04/21/18 09:26) Nausea Medications Ranitidine [Zantac] 150 mg PO BID PRN 12/30/13 [History Confirmed 03/25/18] Epi Pen (for allergic rxn) 0.3 mg IM X1 PRN 10/31/15 [History [...] mg PO TID 03/25/18 [History Confirmed 03/25/18] Smz/Tmp Ds [Bactrim Ds] 1 tab PO BID #14 tab 04/17/18 [Rx] tramadol 37.5 mg-acetaminophen 325 mg tablet 1 tab PO BID PRN #10 tab 04/21/18 [Rx Confirmed 04/21/18] Is last menstrual period known: Yes Post [...] 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 from the right ear and septal dermatoplasty reconstruction with placement dorsal cartilage strut graft from the left ear and placement PDS plate graft. Patient comes in today complaining of feeling something hard in her nose. She previously took a pair of tweezers and pulled out a thin sliver of plastic. It was probably the edge of the PDS plate graft that eventually absorbs. Recently she placed a Qtip in her nose and felt something move. She comes into the office for evaluation to see if there is anything in there today. On exam, she has good nasal contour. She is breathing ok. Intranasally, there is no evidence of further exposed PDS plate graft. Septal perforation is stable. There is some dried blood and crusty mucous secretions present. Removed some secretions with a cotton swab. Some discomfort noted with the manipulation. The right posterior ear wound remains healed. Left ear incision is healed. No clinical evidence of hematoma bilaterally. The recent culture from 03/18/18 from her right posterior ear showed Coag negative Staph, a surface contaminant, and no antibiotics are needed. Encouraged a cool mist humidifier at night to help keep nasal passages moist. Also instructed to start to use saline nasal spray twice daily to help keep nasal mucosa moist. She also can use antibiotic ointment at night to help minimize crustiness in the morning. She states she breathes through her mouth at night. She may need a sleep study to rule out sleep apnea. She will followup with her PCP for that. Encouraged patient to stop smoking as it may have deleterious effects on wound healing. She will need to stop smoking before proceeding with repair of her septal perforation in the future. She states she has cut back to 1/4 pack per day of cigarettes. She states that she has started chewing to get off the cigarettes. Instructed her that chewing tobacco still has nicotine in it and still needs to be stopped before continuing with any further surgery. The chewing will also have a direct compromising effect on the intraoral mucosa as well which is problematic since one of the options for reconstruction of the perforation is the FAMM flap. She states she will try and stop chewing as well. Wrote a script for Tramadol-Acetaminophen for pain secondary to the intranasal manipulation today (10 tabs). Followup on an as needed basis after she has stopped smoking so we can discuss her surgical options for repair of the septal perforation. Assessment AND Plan Problems 1. Airway obstruction, anatomic J98.8 2. Dyspnea R06.00 3. Other specified disorders of nose and nasal sinuses J34.89 4. Nasal septal perforation J34.89 5. Fracture of orbital floor, right side, sequela S02.31XS 6. Smoker F17.200 Medications New: Coding Level of Care Code Global Post Op Diagnoses Airway obstruction, anatomic J98.8 Dyspnea R06.00 Other specified disorders of nose and nasal sinuses J34.89 Nasal septal perforation J34.89 Fracture of orbital floor, right side, sequela S02.31XS Smoker F17.200 04/23/18 1123 <Electronically signed by Roberto Holden MD> Date Roberto Holden MD 04/23/18 1237<Electronically signed by Gunjan TIPTONC> Cosigner Signature: Date (if applicable) Gunjan AlemanC CC: PT D/C SUMMARY (1) Observed: 04/21/2018 Status: F Source: RACHANA 1:59 PM [facility] REPOSITORY [facility] Physical Therapy Health[address] [place] [address] / REHABILITATION SERVICES DISCHARGE SUMMARY MR#: [id number] Acct: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 [Neurontin] 400 mg [...] 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 from the right ear and septal [...] Cosigner Signature: Date (if applicable) Gunjan Aleman CNC FIELD SERVICE ENGINEER-C CC: 12 LEAD ELECTROCARDIOGRAM Observed: 02/26/2018 Status: F Source: [place] 9:20 AM [facility] REPOSITORY [facility] Cardiovascular Services [address] [place] [address] 12 Lead EKG 02/16/18 0810 MR#: [id number] Acct: [id number] Name: COLLEEN MILIAN Rep #: [id number] : 1975 42 From: Demetri Sequeira MD Attending Dr: Clarke Blackmon MD Status: [facility] Ordering Dr: Perez Denis MD Date: 02/16/18 Location: [facility] Sex: F C Admitted: Test Reason : [...] No significant change was found Confirmed by HUA NGUYEN, DEMETRI ([id number]), assignment desk editor KERLINE MILIAN ([id number]) on 02/19/2018 2:29:38 PM Referred By: Roberto Holden Confirmed By:DEMETRI SEQUEIRA MD 02/19/18 1429 Date Demetri Sequeira MD CC: Perez Denis MD; Roberto Holden MD; Clarke Blackmon MD; Timmy Park MD Signed OPERATIVE REPORT Observed: 02/19/2018 Status: F Source: [place] 12:51 PM [facility] REPOSITORY [facility] Medical Records Department [address] [place] [address] Operative Report 02/16/18 1905 MR#: [id number] Acct: [id number] Name: DELROY MILIANCRYSTAL Bernard Rep #: [id number] : 1975 42 From: Roberto Holden MD PCP: Timmy Park MD Status: DEP [facility] Y Location: [facility] Report of Operation Date of Procedure: 02/16/18 Pre-Operative Diagnosis: 1. Nasal airway obstruction with difficulty breathing. 2. Recurrent internal nasal valve vestibular stenosis. 3. Nasal septal perforation. 4. Right orbital floor blowout fracture repair, sequela. 5. Smoker. Post-Operative Diagnosis: Same. Surgery/Procedure Performed:: 1. Repair internal 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 from the right ear. 2. Septal [...] 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 Postop she [...] were included in a form from the [employer]. Encouraged patient to [...] 5 x 4 cm. Lot Number - [id number]. Expiration - February 26, 2023. mothercraft nurse: None Type of Anesthesia:: General Specimen's removed: [...] the upper lateral cartilages. The previous cartilage ordnance mechanic graft was intact on the right but [...] to create a pocket for additional cartilage ordnance mechanic grafts. It was noted that the dorsal cartilage strut of the septum was weakened possibly from the effects of the septal perforation but once again from the effects of her smoking. I needed to reconstruct the dorsal cartilaginous strut of the septum. The proximal portion was intact. The caudal septal strut was intact. I removed the previous cartilage ordnance mechanic graft on the right to get exposure for the septal repair. Ideally a rib graft would be used for this purpose. However at our [facility] there is no Thoracic Surgeon available in [...] stability was noted. The addition of cartilage ordnance mechanic grafts will also further stabilize the septal reconstruction as well. These cartilage ordnance mechanic grafts were obtained from the right ear. [...] half to be used bilaterally. The cartilage ordnance mechanic grafts were secured with 5-0 Vicryl horizontal [...] Yes Code Visit Surgery Charges CPT - 32725 ICD-10 - J98.8, J34.89, R06.00, S02.31xS, F17.200 32717 J98.8, J34.89, R06.00, S02.31xS, F17.200 37823 J34.89, J98.8, R06.00, S02.31xS, F17.200 81066 J34.89, J98.8, R06.00, S02.31xS, F17.200 02/19/18 1251 <Electronically signed by Roberto Holden MD> Date Roberto Holden MD CC: Perez Denis MD; Ryann Castañeda; Roberto Holden MD; Timmy Park MD Signed HISTORY AND PHYSICAL Observed: 02/19/2018 Status: F Source: [place] EXAM 2:15 AM [facility] REPOSITORY [facility] Medical Records Department [address] [place] [address] History and Physical 02/16/18 0014 MR#: [id number] Acct: [id number] Name: COLLEEN MILIAN Joana Rep #: [id number] : 1975 42 From: Roberto Holden MD PCP: Timmy Park MD Status: DEP [facility] Y Location: [facility] History and Physical Date of Admission: 02/16/18 [...] [Rx Confirmed 10/10/17] Fluticasone 0.05% [Flonase Nasal [place]] 1 spray NASAL DAILY 05/01/16 [History Confirmed [...] 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 Postop she [...] swelling. No bony tenderness. No dorsal deviation. Clarke maneuver is positive mostly on the left [...] nasal reconstruction with placement of additional cartilage ordnance mechanic grafts to help increase the internal nasal [...] were included in a form from the [employer]. Patient is aware [...] DISCHARGE INSTRUCTION Observed: 02/17/2018 Status: F Source: [place] 1:28 PM [facility] REPOSITORY [facility] Medical Records Department [address] [place] [address] Instructions for Home/Discharge Instructions 02/17/18 1323 MR#: [id number] Acct: [id number] Name: COLLEEN MILIAN Rep #: [id number] : 1975 42 From: Roberto Holden MD PCP: Timmy Park MD Status: REG [facility] You will use the following diet at [...] Roberto Holden MD When: one week. call [phone] for appt. Proposed Discharge Date: 02/17/18 02/17/18 1328 <Electronically signed by Roberto Holden MD> Date Roberto Holden MD CC: Perez Denis MD; Ryann Castañeda; Timmy Park MD BEDSIDE GLUCOSE Collected: 02/17/2018 Status: F Source: [place] 11:49 AM [facility] REPOSITORY TYPE CODE TESTS RESULT OUT OF REFERENCE UNITS RANGE LAB L501.080 70-110 mg/dL High BEDSIDE GLU 305 Result Comment: MANAGEMENT OF PATIENT CARE PER NURSING PROTOCOL Performed By: #### L501.080 #### [facility] Laboratory Point of Care [address] [place] [address] BEDSIDE GLUCOSE Collected: 02/17/2018 Status: F Source: [place] 6:24 AM [facility] REPOSITORY TYPE CODE TESTS RESULT OUT OF REFERENCE UNITS RANGE LAB L501.080 70-110 mg/dL High BEDSIDE GLU 276 Result Comment: MANAGEMENT OF PATIENT CARE PER NURSING PROTOCOL Performed By: #### L501.080 #### [facility] Laboratory Point of Care [address] [place] [address] BEDSIDE GLUCOSE Collected: 02/16/2018 Status: F Source: [place] 9:56 PM [facility] REPOSITORY TYPE CODE TESTS RESULT OUT OF REFERENCE UNITS RANGE LAB L501.080 70-110 mg/dL High BEDSIDE GLU 171 Result Comment: MANAGEMENT OF PATIENT CARE PER NURSING PROTOCOL Performed By: #### L501.080 #### [facility] Laboratory Point of Care [address] 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 Today, she underwent reconstructive surgery with repair of the internal nasal vestibular stenosis with placement of bilateral cartilage ordnance mechanic grafts and septal dermoplasty and this was [...] blood work that was done on February 10 totality reviewed and was unremarkable. EKG done today and reveals normal sinus rhythm, normal ME interval, normal QRS and no acute ischemic [...] NASAL VESTIBULAR STENOSIS WITH PLACEMENT OF CARTILAGE DIABETES EDUCATOR GRAFT 04/21/2017 Surgical History: cholecystectomy, - - Septoplasty with submucous resection, repair of internal nasal vestibular stenosis with placement of bilateral cartilage ordnance mechanic grafts from the nasal septum, cholecystectomy, 3 and 3 C-sections, open reduction right orbital floor blowout fracture using combined approach with periorbital and transantral with titanium placement, mesh reconstruction. Psychiatric History: Anxiety, Depression COMPUTER CONSULTANT History: No pertinent COMPUTER CONSULTANT history Smoking Status: Current some day smoker [...] fistula stenosis with placement of bilateral cartilage ordnance mechanic graft from both ears with dermoplasty reconstruction for nasal airway obstruction and difficulty breathing, nasal septal perforation and sequelae of right orbital floor blowout fracture and I am seeing this patient in consultation for postoperative medical management. #1 status post repair of anterior nasal vestibular stenosis with placement of bilateral cartilage ordnance mechanic grafts, septal mammoplasty: This was done for [...] Subcu Lovenox. This note was generated with [employer] software. It may contain incorrect words, spelling, and punctuation that were not noted in checking the note before signing. Code Visit Inpatient E AND M: 79330 Init Hosp L2 02/16/181915 <Electronically signed by Ryann Castañeda MD> Date Ryann Castañeda MD Cosigner Signature (if applicable): Date CC: Perez Denis MD; Roberto Holden MD; Timmy Park MD Signed CBC-COMPLETE BLOOD CNT Collected: 02/16/2018 Status: F Source: [place] NO DIFF 6:36 PM [facility] REPOSITORY TYPE CODE TESTS RESULT OUT OF [...] MPV 10.3 Performed By: #### L100.0500 #### [facility] Laboratory [address] [place], [address] BASIC METABOLIC Collected: 02/16/2018 Status: F Source: [place] PROFILE (BMP) 6:36 PM [facility] REPOSITORY TYPE CODE TESTS RESULT OUT OF [...] 7 Performed By: #### L500.2500, L506.0500 #### [facility] Laboratory [address] [place], [address] PREALBUMIN Collected: 02/16/2018 Status: F Source: [place] 6:36 PM [facility] REPOSITORY TYPE CODE TESTS RESULT OUT OF RANGE REFERENCE UNITS LAB L506.0500 20.0-40.0 mg/dL Normal PREALBUMIN 28.7 Performed By: #### L500.2500, L506.0500 #### [facility] Laboratory [address] [place], [address] SKULL LESS THAN 4 Observed: 02/16/2018 Status: F Source: [place] VIEWS 4:17 PM [facility] REPOSITORY [facility] Imaging Services [address] [address] Skull less than 4 Views MR#: [id number] Acct: [id number] Name: COLLEEN MILIAN Rep #: [id number] : 1975 F 42 From: Toño Smith MD PCP: Timmy Park MD Status: REG [facility] Study: Skull less than 4 Views Date of Exam: 02/16/18 Exam# [id number] Ordering Dr: Roberto Holden MD STUDY: X-RAY [...] CC: Roberto Holden MD; Timmy Park MD Ext Js Developer: Signed NICOTINE URINE DRUG Collected: 02/16/2018 Status: F Source: [place] SCREEN 8:30 AM [facility] REPOSITORY TYPE CODE TESTS RESULT OUT OF [...] of Nicotine. Performed By: #### L505.6240 #### [facility] Laboratory [address] [place], [place], [address] BEDSIDE GLUCOSE Collected: 02/16/2018 Status: F Source: [place] 8:05 AM [facility] REPOSITORY TYPE CODE TESTS RESULT OUT OF REFERENCE UNITS RANGE LAB L501.080 70-110 mg/dL High BEDSIDE GLU 169 Result Comment: MANAGEMENT OF PATIENT CARE PER NURSING PROTOCOL Performed By: #### L501.080 #### [facility] Laboratory Point of Care [address] [facility] [place] [address] HAND 3V PA/LAT/OBL Observed: 02/10/2018 Status: F Source: [facility] 12:28 PM [facility] REPOSITORY Performed at [facility] APPROVED BY: Niranjan Marin MD EXAM TITLE: HAND 3V PA/LAT/OBL LEFT, HAND 3V PA/LAT/OBL RIGHT DATE: 02/10/2018 12:27 (accession [id number]), 02/10/2018 12:24 (accession [id number]) INDICATION: Bilateral hand pain. COMPARISON: None. PA, [...] 02/10/2018 Status: F Source: [facility] 12:26 PM HEALTH SYSTEM REPOSITORY Performed at [facility] APPROVED BY: Niranjan Marin MD EXAM TITLE: HAND 3V PA/LAT/OBL LEFT, HAND 3V PA/LAT/OBL RIGHT DATE: 02/10/2018 12:27 (accession [id number]), 02/10/2018 12:24 (accession [id number]) INDICATION: Bilateral hand pain. COMPARISON: None. PA, [...] 3V AP/LAT/OBL Observed: 02/10/2018 Status: F Source: [facility] 12:22 PM [facility]ALTH SYSTEM REPOSITORY Performed at [facility] APPROVED BY: Carlos Monsivais MD EXAM TITLE: 3 VIEWS BILATERAL FEET DATE:02/10/2018 12:20 (accession [id number]), 02/10/2018 12:19 (accession [id number]) COMPARISON: None. CLINICAL INDICATION/HISTORY: Bilateral foot pain [...] 02/10/2018 Status: F Source: [facility] 12:22 PM [facility] REPOSITORY Performed at [facility] APPROVED BY: Carlos Monsivais MD EXAM TITLE: 3 VIEWS BILATERAL FEET DATE:02/10/2018 12:20 (accession [id number]), 02/10/2018 12:19 (accession [id number]) COMPARISON: None. CLINICAL INDICATION/HISTORY: Bilateral foot pain [...] RHEUMATOID FACTOR Collected: 02/10/2018 Status: F Source: [facility] 12:20 HEALTH SYSTEM REPOSITORY TYPE CODE TESTS RESULT OUT OF REFERENCE UNITS RANGE LAB RF1(LOINC) 0.0-15.0 IU/mL Rheumatoid < 10.0 Factor Performed By: #### RF1 #### [facility] [address] [place], [place] [address] CPK Collected: 02/10/2018 Status: F Source: [facility] 12:20 [facility] SYSTEM REPOSITORY TYPE CODE TESTS RESULT OUT OF RANGE REFERENCE UNITS LAB CK(LOINC) 26-192 U/L CPK 42 Performed By: #### CK #### [place] [address] CCP ANTIBODY, IGG Collected: 02/10/2018 Status: F Source: [facility] 12:20 [facility] SYSTEM REPOSITORY TYPE CODE TESTS RESULT OUT OF RANGE REFERENCE UNITS LAB CCPX(LOINC) CCP SEE BELOW Antibody, IgG Result Comment: CCP Antibody, IgG <15 <20 Units < 20 units: Negative 20-39 units: Weak Positive 40-59 units: Moderate Positive > 60 units: Strong Positive The following results were obtained with the [employer] QUANTA Lite CCP3 IgG MECHE. Anti-CCP values obtained with different manufacturers' assay methods may not be used interchangeably. The magnitude of the reported IgG levels cannot be correlated to an endpoint titer. Performing Laboratory: [facility] [address] [place] [address] Performed By: #### CCPX #### [place] [address] ISABELLA BY IFA SCREEN Collected: 02/10/2018 Status: F Source: [facility] 12:20 [facility] SYSTEM REPOSITORY TYPE CODE TESTS RESULT OUT [...] Not applicable for negative result. Performing Laboratory: [facility] [address] [place] [id number] Performed By: #### ANAX #### [facility] [address] [place] [address] DS-DNA AB Collected: 02/10/2018 Status: F Source: [facility] 12:20 [facility] SYSTEM REPOSITORY TYPE CODE TESTS RESULT OUT OF RANGE REFERENCE UNITS LAB DNADX(LOINC ) DS-DNA Ab SEE BELOW Result Comment: DNA Antibody w/ Conf. <12 <30 IU/mL Negative for ds DNA Antibodies Negative: <30 IU/mL Equivocal: 30-74 IU/mL Positive: >74 IU/mL Performing Laboratory: [facility] [address] [place] [address] Performed By: #### DNADX #### [facility] [address] [place] [address] MORILLO ABS IGG Collected: 02/10/2018 Status: F Source: [facility] 12:20 PM HEALTH SYSTEM REPOSITORY TYPE CODE TESTS RESULT OUT OF RANGE REFERENCE UNITS LAB SMABX(LOINC ) Morillo Abs SEE BELOW IgG Result Comment: Sm Antibody <0.2 <1.0 AI Negative Negative: <1.0 AI Positive: >0.9 AI Performing Laboratory: [facility] [address] [place] [address] Performed By: #### SMABX #### [place] [address] SJOGREN ANTIBODIES Collected: 02/10/2018 Status: F Source: [facility] 12:20 PM [facility] REPOSITORY TYPE CODE TESTS RESULT OUT OF REFERENCE UNITS RANGE LAB SJOX(LOINC ) Sjogren Antibodies SEE BELOW Result Comment: SSA Antibody <0.2 <1.0 AI Negative Negative: <1.0 AI Positive: >0.9 AI SSB Antibody <0.2 <1.0 AI Negative Negative: <1.0 AI Positive: >0.9 AI Performing Laboratory: [facility] [address] [place] [address] Performed By: #### SJOX #### [place] [address] LUMBAR LIMITED 2V Observed: 02/10/2018 Status: F Source: [facility] AP/LAT 12:16 PM HEALTH SYSTEM REPOSITORY Performed at [facility] APPROVED BY: Carlos Monsivais MD EXAM TITLE: [...] JOINTS LESS Observed: 02/10/2018 Status: F Source: [facility] 3 VIEWS [address] 12:13 PM HEALTH SYSTEM REPOSITORY Performed at [facility] APPROVED BY: Carlos Monsivais MD EXAM TITLE: [...] erosions. PROGRESS Observed: 02/10/2018 Status: COMPLETED Source: [facility] 11:01 AM CLINIC OTHER CAMPUS REPOSITORY HNO ID: [id number] Author: Oma Diop Service: (none) Author Type: [...] (was on drugs) comes out of the [facility]. Family history of autoimmune disease: adopted. Not [...] Gestational diabetes 2009 - History of alcoholism ([facility]) 04/19/2015 - Mild persistent asthma without complication 12/20/2015 - Orbital floor (blow-out) closed fracture ([facility]) 10/06/2015 right eye - Periodic headache syndrome, not intractable 12/20/2015 - Previous delivery, antepartum condition or complication 12/11/2005 - Scoliosis 2007 chronic upper and lower back pain - Seasonal allergies 12/20/2015 - Tobacco use disorder 12/04/2017 - Uncontrolled type 2 diabetes mellitus without complication, with long-term current use of insulin ([facility]) 06/03/2017 - Varicose veins of other sites [...] before meals and at bedtime using sliding -436 mg/dl = 1 mblb036-463 mg/dl = 2 elpws890-567 mg/dl = 3 cvgec548-627 mg/dl = 4 nqquy494-498 mg/dl = 5 -816 mg/dl = 6 jyjha864-934 mg/dl = 7 unitsGreater than 449 call physician insulin detemir U-100 (LEVEMIR FLEXTOUCH U-100 INSULN) 100 unit/mL (3 mL) inpn injection Inject 27 Units subcutaneously daily at bedtime. alcohol swabs padm Apply 1 application to affected area four times daily. Insulin Holbrook, Disposable, (BD ULTRA-FINE LUCIO PEN NEEDLE) 32 gauge x 532 ndle Use one needle for each dose, [...] weeks (around 03/03/2018) for discuss lab results. MD DEWAYNE WinchesterOV Observed: 02/10/2018 Status: COMPLETED Source: [facility] 11:00 AM [facility] OTHER ALDER REPOSITORY Office Visit (RHBATH) COLLEEN MILIAN ([id number]) 1975 F Date Time Provider Department 02/10/18 11:00 AM OMA DIOP RHBATH During your visit today, we recorded the [...] (was on drugs) comes out [facility] the [facility]. Family history of autoimmune disease: adopted. Not [...] 12/20/2015 - Orbital floor (blow-out) closed fracture ([facility]) 10/06/2015 right eye - Periodic headache syndrome, not intractable 12/20/2015 - Previous delivery, antepartum condition or complication 12/11/2005 - Scoliosis 2006 chronic upper and lower back pain - Seasonal allergies 12/20/2015 - Tobacco use disorder 12/04/2017 - Uncontrolled type 2 diabetes mellitus without complication, with long-term current use of insulin ([facility]) 06/03/2017 - Varicose veins of other sites [...] before meals and at bedtime using sliding iexfr120-057 mg/dl = 1 rfml255-539 mg/dl = 2 mlowf149-500 mg/dl = 3 cbrte658- 309 mg/dl = 4 aeamp668-502 mg/dl = 5 oemdc441-118 mg/dl = 6 -366 mg/dl = 7 unitsGreater than 449 call physician insulin detemir U-100 (LEVEMIR FLEXTOUCH U-100 INSULN) 100 unit/mL (3 mL) inpn injection Inject 27 Units subcutaneously daily at bedtime. alcohol swabs padm Apply 1 application to affected area four times daily. Insulin Holbrook, Disposable, (BD ULTRA-FINE LUCIO PEN NEEDLE) 32 [...] Yes Partners with: Male control/protection: Injection Comment: chris Social History Narrative She has 3 children [...] Oma Diop MD Referring Provider: TIMMY PARK [[id number]] Allergies As of Date: 02/10/2018 Noted Allergy [...] [M25.50] Order(s):RHEUMATOID FACTOR BL [SQRF] Order #: [id number] FUTURE CCP ANTIBODY IGG [SQCCP] Order #: [id number] FUTURE ISABELLA BY IFA SCREEN [SQANAIFS] Order #: [id number] FUTURE DNA ANTIBODY DS BLD [SQDNAAB] Order #: [id number] FUTURE MORILLO IGG AB [SQSMAB] Order #: [id number] FUTURE SJOGREN ABS SSA/SSB [SQXSSAB] Order #: [id number] FUTURE CK CREATINE KINASE [SQCK] Order #: [id number] FUTURE UA WITH CULTURE IF INDICATED [SQUACII] Order #: [id number] FUTURE XR HAND GENERAL 3V PA/LAT/OBL LT [1759316] Order #: [id number] FUTURE XR HAND GENERAL 3V PA/LAT/OBL RT [5519978] Order #: [id number] FUTURE XR FOOT GENERAL 3V AP/LAT/OBL LT [9124156] Order #: [id number] FUTURE XR FOOT GENERAL 3V AP/LAT/OBL RT [4198791] Order #: [id number] FUTURE XR LUMBAR LIMITED 2V AP/LAT [7613741] Order #: [id number] FUTURE XR SACROILIAC JOINTS 2V AP PELVIS/FERGUESON [2241980] Order #: [id number] FUTURE TRANSGLUTAMINASE ABS [SQTGLGMA] Order #: [id number] FUTURE GLIADIN (DEAMINATED) ABS [SQGLIAD] Order #: [id number] FUTURE Prescriptions as of 02/10/2018 Sig: PYRIDOXINE [...] 02/10/2018 Status: F Source: [place] 9:20 AM [facility] REPOSITORY Order Comment: Reason for Laboratory Test [...] tobacco or tobacco cessation products. Performed at: [facility] [address] [id number] [facility] Room Cashier: Iraida West MD, Phone: [phone] Performed By: #### L3600.3400 #### [facility] (refer to report for specific site) refer to report for address and phone number CBC-COMPLETE BLOOD CNT Collected: 02/10/2018 Status: F Source: RACHANA NO DIFF 9:19 AM [facility] REPOSITORY Order Comment: Reason for Laboratory Test [...] MPV 10.4 Performed By: #### L100.0500 #### [facility] [address] [place], [place], [address] HEMOGLOBIN A1C Collected: 02/10/2018 Status: F Source: KECHI 9:19 AM [facility] REPOSITORY Order Comment: Reason for Laboratory Test PRE OP TYPE CODE TESTS RESULT OUT OF RANGE REFERENCE UNITS LAB L501.9985 4.2-6.3 % High HGB A1C 7.3 Performed By: #### L501.9985 #### [facility] [address] [place], [place], [address] PROTHROMBIN TIME W/INR Collected: 02/10/2018 Status: F Source: KECHI 9:19 AM [facility] REPOSITORY Order Comment: Reason for Laboratory Test PRE OP TYPE CODE TESTS RESULT OUT OF RANGE REFERENCE UNITS LAB L300.4150 11.7-14.9 SECONDS Normal PROTIME 12.2 LAB L300.4200 Normal INR 0.9 Performed By: #### L300.3900, L300.4310 #### [facility] [address] [facility] [place], [address] PARTIAL THROMBOPLAST Collected: 02/10/2018 Status: F Source: [facility] 9:19 AM [facility] REPOSITORY Order Comment: Reason for Laboratory Test PRE OP TYPE CODE TESTS RESULT OUT OF RANGE REFERENCE UNITS LAB L300.4310 24.1-36.2 Seconds Normal PTT 30.4 Performed By: #### L300.3900, L300.4310 #### [facility] [address] [place], [place], [address] BASIC METABOLIC Collected: 02/10/2018 Status: F Source: RACHANA PROFILE (BMP) 9:19 AM [facility] REPOSITORY Order Comment: Reason for Laboratory Test [...] 9 Performed By: #### L500.2500, L500.3400 #### [facility] [address] [place], [place], [address] LIVER PROFILE Collected: 02/10/2018 Status: F Source: RACHANA 9:19 AM [facility] REPOSITORY Order Comment: Reason for Laboratory Test [...] 0.06 Performed By: #### L500.2500, L500.3400 #### [facility] [address] [place], [address] ORTHOPEDIC VISIT Observed: 02/09/2018 Status: F Source: KECHI REPORT 4:38 PM [facility] REPOSITORY [facility] [address] [place] [address] [address] [place] [address] OFFICE VISIT Date of Service: 02/08/18 MR#: [id number] Acct: [id number] Name: COLLEEN MILIAN Rep #: [id number] : 1975 Provider: Hazel Osborn DO Age/Sex: 42/F [place] [facility] [place]: Signed Intake Intake Visit Reasons: RIGHT [...] fascia and tendon, initial encounter S76.111A 02/09/18 2188 <Electronically signed by Hazel Osborn DO> Date Hazel Osborn DO Cosignharsha Signature: Date (if applicable) CC: INITAL EVALUATION (1) Observed: 02/08/2018 Status: F Source: RACHANA - PT 11:30 AM [facility] REPOSITORY [facility] Therapy [facility] [place] [address] Fax REHABILITATION SERVICES INITIAL EVALUATION MR#: [id number] Acct: [id number] Name: COLLEEN MILIAN Rep #: [id number] : 1975 42 From: Bruce Clayton PT, ATC Referring DrMeghana: Hazel Osborn DO Status: REG RCR Insurance: [employer] MEDICARE [employer] [facility] *IN NETWORK Patient's Visit Information COLLEEN MILIAN is a 42 year old F referred to Physical Therapy by Hazel Osborn DO with a diagnosis of R quad strain. Date of Evaluation: 02/08/18 Physical Therapist: Bruce Clayton, PT, - Visit Plan Frequency: 2-3x /Week [...] to be FAXED BACK to us at [phone] for Medicare purposes. Please let me know if there are questions or concerns regarding this plan of care. Physician Signature: Date: <Electronically signed by Bruce Clayton PT, ATC> 02/08/18 1130 CC: Hazel Park MD [facility] Signed For Medicare only, by signing this I certify the plan of care. Physicians Signature Date PROGRESS Observed: 02/01/2018 Status: COMPLETED Source: BATS[place]VA 11:00 AM [facility] REPOSITORY HNO ID: [id number] Author: Patricia (Multimedia Artist) Older Service: (none) Author Type: Nurse Practitioner [...] Gestational diabetes 2009 - History of alcoholism ([facility]) 04/19/2015 - Mild persistent asthma without complication 12/20/2015 - Orbital floor (blow-out) closed fracture ([facility]) 10/06/2015 right eye - Periodic headache syndrome, not intractable 12/20/2015 - Previous delivery, antepartum condition or complication 12/11/2005 - Scoliosis 2006 chronic upper and lower back pain - Seasonal allergies 12/20/2015 - Tobacco use disorder 12/04/2017 - Uncontrolled type 2 diabetes mellitus without complication, with long-term current use of insulin ([facility]) 06/03/2017 - Varicose veins of other sites [...] before meals and at bedtime using sliding gpole975-678 mg/dl = 1 zdpx049-448 mg/dl = 2 exyrp404-171 mg/dl = 3 ahzud794-097 mg/dl = 4 -133 mg/dl = 5 yjozb336-550 mg/dl = 6 yvfho457-232 mg/dl = 7 unitsGreater than 449 call physician insulin detemir U-100 (LEVEMIR FLEXTOUCH U-100 INSULN) 100 unit/mL (3 mL) inpn injection Inject 27 Units subcutaneously daily at bedtime. alcohol swabs padm Apply 1 application to affected area four times daily. Insulin Holbrook, Disposable, (BD ULTRA-FINE LUCIO PEN NEEDLE) 32 [...] daily. Dx: Type 2 DM - Uncontrolled .65 Insulin: Yes loperamide (ANTI-DIARRHEAL) 2 mg cap(s) [...] agreeable to treatment plan. Patricia Hobson APRN.ROBIN MARISCAL Observed: 02/01/2018 Status: COMPLETED Source: [place] [facility] 10:40 AM [facility] REPOSITORY Office Visit (INTMWS) COLLEEN MILIAN ([id number]) 1975 F Date Time Provider Department 02/01/18 10:40 AM PATRICIA HOBSON (ROBIN) INTMWS During your visit today, we recorded the following information about you: Temperature Pulse Respiration Blood pressure 97.9 degrees 72/minute 18/minute 128/72 Weight 67.2 kg Patricia Hobson, CRACKING MACHINE OPERATORARLIN 02/01/2018 1:45 PM Signed CC: Patient presents [...] Gestational diabetes 2009 - History of alcoholism ([facility]) 04/19/2015 - Mild persistent asthma without complication 12/20/2015 - Orbital floor (blow-out) closed fracture ([facility]) 10/06/2015 right eye - Periodic headache syndrome, not intractable 12/20/2015 - Previous delivery, antepartum condition or complication 12/11/2005 - Scoliosis 2006 chronic upper and lower back pain - Seasonal allergies 12/20/2015 - Tobacco use disorder 12/04/2017 - Uncontrolled type 2 diabetes mellitus without complication, with long-term current use of insulin ([facility]) 06/03/2017 - Varicose veins of other sites [...] before meals and at bedtime using sliding nxawr577-466 mg/dl = 1 pned850-322 mg/dl = 2 btboo976-802 mg/dl = 3 aliqk917- 309 mg/dl = 4 eyqqv619-457 mg/dl = 5 ryljk634-649 mg/dl = 6 vugrz460-001 mg/dl = 7 unitsGreater than 449 call physician insulin detemir U-100 (LEVEMIR FLEXTOUCH U-100 INSULN) 100 unit/mL (3 mL) inpn injection Inject 27 Units subcutaneously daily at bedtime. alcohol swabs padm Apply 1 application to affected area four times daily. Insulin Holbrook, Disposable, (BD ULTRA-FINE LUCIO PEN NEEDLE) 32 [...] [R60.0] Order(s):BASIC METABOLIC PNL [SQBMP] Order #: [id number] FUTURE Hydrochlorothiazide 12.5 mg capsuleTake 1 capsule [...] 02/01/18 PROGRESS Observed: 01/13/2018 Status: COMPLETED Source: [place] [facility] 2:01 PM [facility] REPOSITORY HNO ID: [id number] Author: Patricia Christina) Joce Service: (none) Author Type: Nurse Practitioner Type: Progress Notes Filed: 01/13/2018 2:18 PM Note Text: CC: Patient presents with: ER F/U HPI Colleen Milian is a 42 year old female who presents today for ER follow-up. Facility: [facility] Date of visit: 01/10/18 Reason for visit: [...] Gestational diabetes 2009 - History of alcoholism ([facility]) 04/19/2015 - Mild persistent asthma without complication 12/20/2015 - Orbital floor (blow-out) closed fracture ([facility]) 10/06/2015 right eye - Periodic headache syndrome, not intractable 12/20/2015 - Previous delivery, antepartum condition or complication 12/11/2005 - Scoliosis 2006 chronic upper and lower back pain - Seasonal allergies 12/20/2015 - Tobacco use disorder 12/04/2017 - Uncontrolled type 2 diabetes mellitus without complication, with long-term current use of insulin ([facility]) 06/03/2017 - Varicose veins of other sites [...] before meals and at bedtime using sliding rraec557-502 mg/dl = 1 dgbc474-311 mg/dl = 2 wzycs940-350 mg/dl = 3 whorq992-920 mg/dl = 4 kyxkj648-890 mg/dl = 5 -788 mg/dl = 6 wfuax374-650 mg/dl = 7 unitsGreater than 449 call physician insulin detemir U-100 (LEVEMIR FLEXTOUCH U-100 INSULN) 100 unit/mL (3 mL) inpn injection Inject 27 Units subcutaneously daily at bedtime. alcohol swabs padm Apply 1 application to affected area four times daily. Insulin Holbrook, Disposable, (BD ULTRA-FINE LUCIO PEN NEEDLE) 32 [...] treatment plan. Patricia Hobson APRN.ROBIN CNOV Observed: 01/13/2018 Status: COMPLETED Source: [place] [facility] 1:40 PM [facility] REPOSITORY Office Visit (INTMWS) COLLEEN MILIAN ([id number]) 1975 F Date Time Provider Department 01/13/18 [...] who presents today for ER follow-up. Facility: [facility] Date of visit: 01/10/18 Reason for visit: [...] Gestational diabetes 2009 - History of alcoholism ([facility]) 04/19/2015 - Mild persistent asthma without complication 12/20/2015 - Orbital floor (blow-out) closed fracture ([facility]) 10/06/2015 right eye - Periodic headache syndrome, not intractable 12/20/2015 - Previous delivery, antepartum condition or complication 12/11/2005 - Scoliosis 2006 chronic upper and lower back pain - Seasonal allergies 12/20/2015 - Tobacco use disorder 12/04/2017 - Uncontrolled type 2 diabetes mellitus without complication, with long-term current use of insulin ([facility]) 06/03/2017 - Varicose veins of other sites [...] before meals and at bedtime using sliding -924 mg/dl = 1 bcvj419-343 mg/dl = 2 jejur224-712 mg/dl = 3 yualn093- 309 mg/dl = 4 fwbha055-979 mg/dl = 5 -758 mg/dl = 6 dqofj140-378 mg/dl = 7 unitsGreater than 449 call physician insulin detemir U-100 (LEVEMIR FLEXTOUCH U-100 INSULN) 100 unit/mL (3 mL) inpn injection Inject 27 Units subcutaneously daily at bedtime. alcohol swabs padm Apply 1 application to affected area four times daily. Insulin Holbrook, Disposable, (BD ULTRA-FINE LUCIO PEN NEEDLE) 32 [...] Date Reviewed: 01/13/2018 Reviewed by: Ani Aguayo Alumni Relations Officer - Fully Assessed Reason for Visit: ER [...] EMERGENCY DEPARTMENT Observed: 01/12/2018 Status: F Source: KECHI SUMMARY 10:48 PM [facility] REPOSITORY [facility] Medical Records Department [address] [place] [address] Emergency Department Summary 01/12/182 MR#: [id number] Acct: [id number] Name: COLLEEN MILIAN Rep #: [id number] : 1975 42 From: Mario Velasquez PCP: [...] care discussed. Started on Keflex and Bactrim. Tulelake for pain. OARRS report checked. Follow-up with PCP. Signs and symptoms discussed. Treatment Plan: [] Disposition: Discharge Impression: Left groin abscess with cellulitis status post incision and drainage This note was generated with FlowCardia dictation software. It may contain incorrect words, spelling, and punctuation that were not noted in review of the chart prior to signing ED Disposition - Plan for ED Patient: Disposition: Home or Assisted Living Chief Complaint: Abscess Diagnosis: Abscess of left groin, Cellulitis of left groin Instructions: ED Abscess IandD, ED Infec Skin Cellulitis Prescriptions: Hydrocodone Bitart/Apap 5-325 [Tulelake 5MG-325MG] 1 tablet PO Q6H PRN PRN [...] your Primary Care Provider. Call [facility] ([phone]) or report to the closest Emergency Room. Call 911 if necessary. 01/12/18 2416 <Electronically signed by Mario Velasquez> Date Mario Velasquez Cosigner Signature (If Indicated): Date CC: Timmy Park MD EMERGENCY DEPARTMENT Observed: 01/10/2018 Status: F Source: KECHI SUMMARY 9:04 AM [facility] REPOSITORY [facility] Medical Records Department [address] [place] [address] Emergency Department Summary 01/10/18 0842 MR#: [id number] Acct: [id number] Name: COLLEEN MILIAN Rep #: [id number] : 1975 42 From: Mario Velasquez PCP: [...] Mechanical fall This note was generated with FlowCardia dictation software. It may contain incorrect words, [...] your Primary Care Provider. Call [facility] ([phone]) or report to the closest Emergency Room. Call 911 if necessary. 01/10/18 0904 <Electronically signed by Mario Velasquez> Date Mario Velasquez Cosigner Signature (If Indicated): Date CC: Timmy Park MD KNEE 4 OR MORE Observed: 01/10/2018 Status: F Source: [facility] 8:42 AM [facility] REPOSITORY [facility] Imaging Services [address] [place] [address] Knee 4 or More Views MR#: [id number] Acct: [id number] Name: COLLEEN MILIAN Rep #: [id number] : 1975 F 42 From: Jeanie Michael MD PCP: Timmy Park MD Status: DEP ER Study: Knee 4 or More Views Date of Exam: 01/10/18 Exam# [id number] Ordering Dr: Mario Rothman DO STUDY: X-RAY [...] , CC: Mario Rothman; Timmy Park MD Ext Js Developer: Signed CNOV Observed: 01/04/2018 Status: COMPLETED Source: [place] [facility] 9:20 AM [facility] REPOSITORY Office Visit (INTMWS) COLLEEN MILIAN ([id number]) 1975 F Date Time Provider Department 01/04/18 [...] Gestational diabetes 2009 - History of alcoholism ([facility]) 04/19/2015 - Mild persistent asthma without complication 12/20/2015 - Orbital floor (blow-out) closed fracture ([facility]) 10/06/2015 right eye - Periodic headache syndrome, not intractable 12/20/2015 - Previous delivery, antepartum condition or complication 12/11/2005 - Scoliosis 2007 chronic upper and lower back pain - Seasonal allergies 12/20/2015 - Tobacco use disorder 12/04/2017 - Uncontrolled type 2 diabetes mellitus without complication, with long-term current use of insulin ([facility]) 06/03/2017 - Varicose veins of other sites [...] before meals and at bedtime using sliding -606 mg/dl = 1 axsg145-902 mg/dl = 2 -340 mg/dl = 3 qxwyl014- 309 mg/dl = 4 oazck925-382 mg/dl = 5 uzjtu906-723 mg/dl = 6 -264 mg/dl = 7 unitsGreater than 449 call physician insulin detemir U-100 (LEVEMIR FLEXTOUCH U-100 INSULN) 100 unit/mL (3 mL) inpn injection Inject 27 Units subcutaneously daily at bedtime. alcohol swabs padm Apply 1 application to affected area four times daily. Insulin Holbrook, Disposable, (BD ULTRA-FINE LUCIO PEN NEEDLE) 32 [...] sooner if worsening Referring Provider: TIMMY PARK [[id number]] Allergies As of Date: 01/04/2018 Noted Allergy Reaction AMOXICILLIN 04/16/2017 8 - GI Upset Comments: GI upset BEE STINGS [Other] 12/11/2005 Comments: nasal drainage DUST 12/11/2005 Comments: nasal drainage DUST MITES 12/11/2005 Comments: nasal drainage NAPROXEN 01/13/2014 8 - GI Upset 14 - Other: See Comments Comments: spotting POLLEN 12/11/2005 Comments: nasal drainage Date Reviewed: 01/04/2018 Reviewed by: Ani Aguayo Alumni Relations Officer - Fully Assessed Reason for Visit: bee sting and nausea [Other] Primary Visit Diagnosis:Local reaction to insect sting, accidental or unintentional, subsequent encounter [T63.541D] Order(s):predniSONE (DELTASONE) 20 mg tabletTake 2 tablets [...] 01/04/18 PROGRESS Observed: 01/04/2018 Status: COMPLETED Source: [place] [facility] 9:17 AM [facility] REPOSITORY [facility] ID: [id number] Author: Patricia Christina) Joce Service: (none) Author Type: Nurse Practitioner [...] Gestational diabetes 2009 - History of alcoholism ([facility]) 04/19/2015 - Mild persistent asthma without complication 12/20/2015 - Orbital floor (blow-out) closed fracture ([facility]) 10/06/2015 right eye - Periodic headache syndrome, not intractable 12/20/2015 - Previous delivery, antepartum condition or complication 12/11/2005 - Scoliosis 2006 chronic upper and lower back pain - Seasonal allergies 12/20/2015 - Tobacco use disorder 12/04/2017 - Uncontrolled type 2 diabetes mellitus without complication, with long-term current use of insulin ([facility]) 06/03/2017 - Varicose veins of other sites [...] before meals and at bedtime using sliding kcuvq774-861 mg/dl = 1 trlm681-688 mg/dl = 2 kslwa599-288 mg/dl = 3 eafhd115-156 mg/dl = 4 awthv316-273 mg/dl = 5 aqutm484-525 mg/dl = 6 auewy985-199 mg/dl = 7 unitsGreater than 449 call physician insulin detemir U-100 (LEVEMIR FLEXTOUCH U-100 INSULN) 100 unit/mL (3 mL) inpn injection Inject 27 Units subcutaneously daily at bedtime. alcohol swabs padm Apply 1 application to affected area four times daily. Insulin Holbrook, Disposable, (BD ULTRA-FINE LUCIO PEN NEEDLE) 32 [...] regarding treatment options and medications. Patricia Hobson APRN.[facility] EMERGENCY DEPARTMENT Observed: 01/02/2018 Status: F Source: KECHI SUMMARY 4:01 PM [facility] REPOSITORY [facility] Medical Records Department [address] [place] [address] Emergency Department Summary 01/02/18 1017 MR#: [id number] Acct: [id number] Name: COLLEEN MILIAN Rep #: [id number] : 1975 42 From: Elio Burger MD [...] concerns, she has been seen by an revenue collector for bee stings, she is currently prescribed an EpiPen to use as she needs to and she can see the revenue collector for further follow-up. She knows to return if she has any systemic signs such as shortness of breath. Treatment Plan: [] Disposition: [] Impression: [] Bee sting right lower leg This note was generated with FlowCardia dictation software. It may contain incorrect words, [...] problems, contact your Primary Care Provider. Call [facility] ([phone]) or report to the closest Emergency Room. Call 911 if necessary. 01/02/18 1601 <Electronically signed by Elio Burger MD> Date Elio Burger MD Cosigner Signature (If Indicated): Date CC: Timmy Park MD DISCHARGE INSTRUCTION Observed: 01/02/2018 Status: F Source: RAC[place]NA 10:25 AM [facility] REPOSITORY [facility] Medical Records Department [address] [place] [address] Discharge Instruction 01/02/18 1023 MR#: [id number] Acct: [id number] Name: COLLEEN MILIAN Rep #: [id number] : 1975 42 From: Elio Burger MD [...] problems, contact your Primary Care Provider. Call [facility] ([phone]) or report to the closest Emergency Room. Call 911 if necessary. 01/02/18 1025 <Electronically signed by Elio Burger MD> Date Elio Burger MD Cosigner Signature (If Indicated): Date CC: Timmy Park MD CNCO Observed: 12/30/2017 Status: COMPLETED Source: [place] [facility] 10:15 AM [facility] REPOSITORY HNO ID: [id number] Author: Mammography Coordinator Service: (none) Author Type: Physician Type: Letter Filed: 12/31/2017 11:31 PM Note Text: December 30, 2017 PID: [id number] Colleen Cross Milian [address] [place] [address] Dear Ms. Milian, Your recent breast imaging examination performed on 12/30/2017 showed an area that we believe is probably benign (not cancer). A six month follow-up is recommended to ensure your breast health. Please call [phone] to schedule an appointment for these tests [...] care needs. Sincerely, Dr. Hardy Interpreting Radiologist [facility] (# mo Follow-up) CNCO Observed: 12/30/2017 Status: COMPLETED Source: [place] [facility] 10:15 AM [facility] REPOSITORY HNO ID: [id number] Author: Mammography Coordinator Service: (none) Author Type: Physician Type: Letter Filed: 12/31/2017 11:31 PM Note Text: December 30, 2017 PID: [id number] Colleen Milian [address] [place] [id number] Dear Ms. Milian, Your recent breast imaging examination performed on 12/30/2017 showed an area that we believe is probably benign (not cancer). A six month follow-up is recommended to ensure your breast health. Please call [phone] to schedule an appointment for these tests [...] care needs. Sincerely, Dr. Hardy Interpreting Radiologist [facility] (# mo Follow-up) PROGRESS Observed: 12/30/2017 Status: COMPLETED Source: [place] [facility] 10:08 AM [facility] REPOSITORY HNO ID: [id number] Author: Rachele Shine Rdms Service: (none) Author [...] Shine Rdms December 30, 2017 10:08 AM [employer] Observed: 12/30/2017 Status: F Source: [facility] 9:06 AM [facility] REPOSITORY * * *Final Report* * * DATE OF EXAM: Dec 30 2017 9:06AM WRU 0593 - [employer] US BREAST LTD LT / PROCEDURE REASON: 6 MONTH BILATERAL / LEFT BREAST /ABNORMAL MAMMOGRAM * * * * Physician Interpretation * * * * #[id number] - [facility] DIAGNOSTIC LORY BILATERAL DIGITAL DIAGNOSTIC MAMMOGRAM WITH CAD: 12/30/2017 HISTORY: 6 Month Followup Left/Bilateral diagnostic /Abnormal Mammogram. RESULT: TECHNIQUE: The study was acquired using full field digital technology and interpreted from soft copy. Current study was also evaluated with a Computer Aided Detection (CAD). Comparison is made to exams dated: 06/30/2017 mammogram, 12/30/2016 mammogram - [facility], and 12/25/2016 mammogram - [facility]. The tissue of both breasts is heterogeneously [...] consistent with a cyst and is benign. #[id number] - [employer] BREAST KA[facility] medical LT ULTRASOUND OF LEFT BREAST: 12/30/2017 RESULT: Comparison is made to exams dated: 06/30/2017 mammogram, 12/30/2016 mammogram - [facility], and 12/25/2016 mammogram - [facility]. Real-time ultrasound of the left breast was [...] recommended to demonstrate stability. Ailyn ocasio/liam:12/30/2017 10:15:52 Secretary: Meenakshi HANSEN(Greg)(Familia), [facility] letter sent: # Mo FU Mammogram BI-RADS: [...] Health, Family Medicine, and Medical/Surgical Oncology, the [facility] has carefully reviewed the data and reached [...] their providers when to stop screening mammograms. Ext Js Developer: Liam Transcribe Date/Time: Dec 30 2017 8:14A Dictated by : AILYN HARDY MD This examination was interpreted and the report reviewed and electronically signed by: AILYN HARDY MD on Dec 30 2017 10:15AM EST [id number] [facility] DIAG[facility] Observed: 12/30/2017 Status: F Source: [place] [facility] 9:01 AM [facility] REPOSITORY * * *Final Report* * * DATE OF EXAM: Dec 30 2017 9:01AM WRW 0620 - [facility] DIAGNOSTIC LORY / PROCEDURE REASON: 6 MONTH BILATERAL / LEFT BREAST /ABNORMAL MAMMOGRAM * * * * Physician Interpretation * * * * RESULT: #[id number] - [facility] DIAG[facility]IC [facility] BILATERAL DIGITAL DIAGNOSTIC MAMMOGRAM WITH CAD: 12/30/2017 HISTORY: 6 Month Followup Left/Bilateral diagnostic /Abnormal Mammogram. RESULT: TECHNIQUE: The study was acquired using full field digital technology and interpreted from soft copy. Current study was also evaluated with a Computer Aided Detection (CAD). Comparison is made to exams dated: 06/30/2017 mammogram, 12/30/2016 mammogram - [facility], and 12/25/2016 mammogram - [facility]. The tissue of both breasts is heterogeneously [...] consistent with a cyst and is benign. #[id number] - [facility] US BREAST LTD LT ULTRASOUND OF LEFT BREAST: 12/30/2017 RESULT: Comparison is made to exams dated: 06/30/2017 mammogram, 12/30/2016 mammogram - [facility], and 12/25/2016 mammogram - [facility]. Real-time ultrasound of the left breast was [...] recommended to demonstrate stability. Ailyn ocasio/liam:12/30/2017 10:15:52 Secretary: Meenakshi JORGE)(Familia), [facility] letter sent: # Mo FU Mammogram BI-RADS: [...] Health, Family Medicine, and Medical/Surgical Oncology, the [facility] has carefully reviewed the data and reached [...] their providers when to stop screening mammograms. Ext Js Developer: Liam Transcribe Date/Time: Dec 30 2017 8:14A Dictated by: AILYN HARDY MD This examination was interpreted and the report reviewed and electronically signed by: AILYN HARDY MD on Dec 30 2017 10:15AM EST [id number] PROGRESS Observed: 12/30/2017 Status: COMPLETED Source: JOINT BASE MDL 8:20 AM [facility] REPOSITORY HNO ID: [id number] Author: Eliana Hansen Service: (none) Author Type: (none) Type: Progress [...] DATA REVIEWED: Not Applicable RADIOLOGY DEPARTMENT: [facility] DATA: Not applicable SIGNED BY: Eliana Hansen December 30, 2017 8:20 AM PROGRESS Observed: 12/28/2017 Status: COMPLETED Source: JOINT BASE MDL 2:53 PM [facility] REPOSITORY HNO ID: [id number] Author: Patricia Christina) Joce Service: (none) Author Type: Nurse Practitioner [...] Gestational diabetes 2009 - History of alcoholism ([facility]) 04/19/2015 - Mild persistent asthma without complication 12/20/2015 - Orbital floor (blow-out) closed fracture ([facility]) 10/06/2015 right eye - Periodic headache syndrome, not intractable 12/20/2015 - Previous delivery, antepartum condition or complication 12/11/2005 - Scoliosis 2007 chronic upper and lower back pain - Seasonal allergies 12/20/2015 - Tobacco use disorder 12/04/2017 - Uncontrolled type 2 diabetes mellitus without complication, with long-term current use of insulin ([facility]) 06/03/2017 - Varicose veins of other sites [...] before meals and at bedtime using sliding qyham955-377 mg/dl = 1 zbgy560-838 mg/dl = 2 ielye425-439 mg/dl = 3 avtxm551-152 mg/dl = 4 lseml379-876 mg/dl = 5 ylcjz511-609 mg/dl = 6 -254 mg/dl = 7 unitsGreater than 449 call physician insulin detemir U-100 (LEVEMIR FLEXTOUCH U-100 INSULN) 100 unit/mL (3 mL) inpn injection Inject 27 Units subcutaneously daily at bedtime. alcohol swabs padm Apply 1 application to affected area four times daily. Insulin [place], Disposable, (BD ULTRA-FINE LUCIO PEN NEEDLE) 32 [...] symptoms occur. Patient agreeable to treatment plan Patricia Hobson APRN.ROBIN BUCHANANOV Observed: 12/28/2017 Status: COMPLETED Source: JOINT BASE MDL 2:40 PM [facility] REPOSITORY Office Visit (INTMWS) COLLEEN MILIAN ([id number]) 1975 F Date Time Provider Department 12/28/17 2:40 PM OLDER, PATRICIA (ROBIN) INTMWS During your visit today, we recorded the following information about you: Temperature Pulse Respiration Blood pressure 98.4 degrees 85/minute 14/minute 110/80 Weight 65 kg Patricia Older, CRACKING MACHINE OPERATORARLIN 12/28/2017 3:22 PM Signed CC: concerned about [...] before meals and at bedtime using sliding dufme298-179 mg/dl = 1 pwya324-453 mg/dl = 2 elnlg980-968 mg/dl = 3 txyqz929- 309 mg/dl = 4 liolf983-922 mg/dl = 5 -507 mg/dl = 6 egbwp392-726 mg/dl = 7 unitsGreater than 449 call physician insulin detemir U-100 (LEVEMIR FLEXTOUCH U-100 INSULN) 100 unit/mL (3 mL) inpn injection Inject 27 Units subcutaneously daily at bedtime. alcohol swabs padm Apply 1 application to affected area four times daily. Insulin Holbrook, Disposable, (BD ULTRA-FINE LUCIO PEN NEEDLE) 32 [...] Date Reviewed: 12/28/2017 Reviewed by: Ani Aguayo Alumni Relations Officer - Fully Assessed Primary Visit Diagnosis:Uncontrolled type 2 diabetes mellitus without complication, with long-term current use of insulin ([facility]) [E11.65, Z79.4] Other Visit Diagnosis:Dyspnea on exertion [...] PLASTIC SURGERY Observed: 12/22/2017 Status: F Source: KECHI VISIT REPORT 11:17 PM [facility] REPOSITORY [facility] [address] [place] [address] OFFICE VISIT Date of Service: 12/17/17 MR#: [id number] Acct: [id number] Name: COLLEEN MILIAN Rep #: [id number] : 1975 Provider: Roberto Holden MD Age/Sex: 42/F Location: [facility] Status: Signed Intake Vital Signs12/17/17 Height 5 ft 2 in 12/17/17 Weight: 144 lb 2 oz Intake Visit Reasons: evaluation breathing difficulty left side of nose Dyehouse Worker Required: No Accompanied by: None Is patient [...] [Rx Confirmed 10/10/17] Fluticasone 0.05% [Flonase Nasal [place]] 1 spray NASAL DAILY 05/01/16 [History Confirmed [...] NOSE HURTS ONLY WHEN TOUCHED - SENSITIVE [facility] Medical History Acid reflux disease (Acute) Anxiety [...] 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 Postop she [...] nasal reconstruction with placement of additional cartilage ordnance mechanic grafts to help increase the internal nasal [...] were included in a form from the [employer]. Patient is aware [...] Nasal septal perforation J34.89 Smoker F17.200 12/22/17 8160 <Electronically signed by Roberto Holden MD> Date Roberto Holden MD Cosigner Signature: Date (if applicable) CC: Timmy Park MD PROGRESS Observed: 12/04/2017 Status: COMPLETED Source: JOINT BASE MDL 8:55 AM [facility] REPOSITORY HNO ID: [id number] Author: Timmy Park Service: (none) Author Type: Physician Type: Progress Notes Filed: 12/04/2017 9:01 AM Note Text: This note was created using Neuro Hero. Subjective Colleen Milian is a 42 year [...] Complication, With Long-Term Current Use of Insulin ([facility]) Restless Leg Syndrome Mixed Hyperlipidemia Tobacco Use [...] MD CNOV Observed: 12/04/2017 Status: COMPLETED Source: JOINT BASE MDL 8:20 AM [facility] REPOSITORY Office Visit (INTMWS) COLLEEN MILIAN ([id number]) 1975 F Date Time Provider Department 12/04/17 8:20 AM TIMMY PARK INTFamiliaWS During your visit today, we recorded the following information about you: Temperature Pulse Respiration Blood pressure 98.2 degrees 80/minute 14/minute 104/74 Weight 65.8 kg Timmy Park MD 12/04/2017 9:01 AM Signed This note was created using Vaultiveriter. Subjective Colleen Milian is a 42 year [...] Timmy Park MD Referring Provider: TIMMY PARK [[id number]] Allergies As of Date: 12/04/2017 Noted Allergy Reaction AMOXICILLIN 04/16/2017 8 - GI Upset Comments: GI upset BEE STINGS [Other] 12/11/2005 Comments: nasal drainage DUST 12/11/2005 Comments: nasal drainage DUST MITES 12/11/2005 Comments: nasal drainage NAPROXEN 01/13/2014 8 - GI Upset 14 - Other: See Comments Comments: spotting POLLEN 12/11/2005 Comments: nasal drainage Date Reviewed: 12/04/2017 Reviewed by: Eliana Huang Alumni Relations Officer - Fully Assessed Reason for Visit: Recheck [...] 5 BASIC METABOLIC PNL [SQBMP] Order #: [id number] FUTURE HGB A1C [QZRPT4L] Order #: [id number] FUTURE LIPID PANEL BASIC [SQLIPB] Order #: [id number] FUTURE Prescriptions as of 12/04/2017 Sig: PRAMIPEXOLE [...] PLASTIC SURGERY Observed: 11/30/2017 Status: F Source: KECHI VISIT REPORT 5:06 PM [facility] REPOSITORY [facility] [address] [place] [address] OFFICE VISIT Date of Service: 11/05/17 MR#: [id number] Acct: [id number] Name: COLLEEN MILIAN Rep #: [id number] : 1975 Provider: Roberto Holden MD Age/Sex: 42/F Location: [facility] Status: Signed Intake Vital Signs11/05/17 Height 5 ft 2 in 11/05/17 Weight: 147 lb Intake Visit Reasons: evaluation breathing difficulty left side of nose Dyehouse Worker Required: No Accompanied by: None Is patient [...] [Rx Confirmed 10/10/17] Fluticasone 0.05% [Flonase Nasal [place]] 1 spray NASAL DAILY 05/01/16 [History Confirmed [...] 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 Postop she [...] No dorsal deviation. No septal deviation noted. Clarke maneuver is positive mostly on the left [...] nasal reconstruction with placement of additional cartilage ordnance mechanic grafts to help increase the internal nasal [...] CREATININE FINGERSTICK Collected: 11/26/2017 Status: F Source: KECHI 5:06 PM [facility] REPOSITORY TYPE CODE TESTS RESULT OUT OF RANGE REFERENCE UNITS LAB L9100.0210 0.55-1.02 mg/dL Normal CREATININE WB < 0.6 LAB L9100.0220 >60 mL/min EGFR WB Normal > 60.0000 Performed By: #### L9100.0200 #### [facility] Point of Care [address] [place] [address] SINUS/FACIAL BONE WITH Observed: 11/26/2017 Status: F Source: KECHI CONTRAS 4:51 PM [facility] REPOSITORY [facility] Imaging Services [address] [place] [address] Sinus/Facial Bone WITH Contras MR#: [id number] Acct: [id number] Name: MILIANCOLLEEN K Rep #: [id number] : 1975 F 42 From: [place] PCP: Timmy Park MD Status: REG CLI Study: Sinus/Facial Bone WITH Contras Date of Exam: 11/26/17 Exam# [id number] Ordering Dr: Roberto Holden MD STUDY: CT [...] CC: Roberto Holden MD; Timmy Park MD Ext Js Developer: Signed EMERGENCY DEPARTMENT Observed: 11/15/2017 Status: F Source: KECHI SUMMARY 7:27 PM [facility] REPOSITORY [facility] Medical Records Department [address] [place] [address] Emergency Department Summary 11/15/171919 MR#: [id number] Acct: [id number] Name: COLLEEN MILIAN Rep #: [id number] : 1975 42 From: Krzysztof Ann MD [...] and Treatment: Patient received a dose of [place]. After reviewing her MRI and reevaluating her [...] without sciatica This note was generated with FlowCardia dictation software. It may contain incorrect words, [...] problems, contact your Primary Care Provider. Call [facility] ([phone]) or report to the closest Emergency Room. Call 911 if necessary. 11/15/171926 <Electronically signed by Krzysztof Ann MD> Date Krzysztof Ann MD Cosigner Signature (If Indicated): Date CC: Timmy Park MD SPINE LUMBAR Observed: 11/12/2017 Status: F Source: KECHI (ROUTINE) 12:18 PM [facility] REPOSITORY [facility] Imaging Services [address] [place] [address] Spine Lumbar (Routine) MR#: [id number] Acct: [id number] Name: RUKHSANACOLLEEN Joana Rep #: [id number] : 1975 F 42 From: Alena Murillo MD PCP: Timmy Park MD Status: REG CLI Study: Spine Lumbar (Routine) Date of Exam: 11/12/17 Exam# [id number] Ordering Dr: Nitza Clay [employer] FIELD SERVICE ENGINEERPaco STUDY: MRI LUMBAR SPINE WITHOUT CONTRAST REASON [...] Tel , Service support , CC: Nitza WANG Prebish; Timmy Park MD Ext Js Developer: Signed PROGRESS Observed: 11/11/2017 Status: COMPLETED Source: JOINT BASE MDL 8:47 AM [facility] REPOSITORY HNO ID: [id number] Author: Patricia (Robin) Older Service: (none) Author [...] Gestational diabetes 2009 - History of alcoholism ([facility]) 04/19/2015 - Mild persistent asthma without complication 12/20/2015 - Orbital floor (blow-out) closed fracture ([facility]) 10/06/2015 right eye - Periodic headache syndrome, not intractable 12/20/2015 - Previous delivery, antepartum condition or complication 12/11/2005 - Scoliosis 2006 chronic upper and lower back pain - Seasonal allergies 12/20/2015 - Uncontrolled type 2 diabetes mellitus without complication, with long-term current use of insulin ([facility]) 06/03/2017 - Varicose veins of other sites [...] before meals and at bedtime using sliding ujizw412-638 mg/dl = 1 qrdb516-179 mg/dl = 2 iximu617-842 mg/dl = 3 ucuur719-338 mg/dl = 4 dlevw457-260 mg/dl = 5 avjgr411-292 mg/dl = 6 covxh719-810 mg/dl = 7 unitsGreater than 449 call physician insulin detemir U-100 (LEVEMIR FLEXTOUCH U-100 INSULN) 100 unit/mL (3 mL) inpn injection Inject 27 Units subcutaneously daily at bedtime. alcohol swabs padm Apply 1 application to affected area four times daily. Insulin [place], Disposable, (BD ULTRA-FINE LUCIO PEN NEEDLE) 32 [...] treatment plan. Patricia Hobson APRN.CNP CNOV Observed: 11/11/2017 Status: COMPLETED Source: JOINT BASE MDL 8:40 AM [facility] REPOSITORY Office Visit (INTMWS) RUKHSANACOLLEEN K ([id number]) 1975 F Date Time Provider Department 11/11/17 8:40 AM PATRICIA HOBSON (ROBIN) INTMWS During your visit today, we recorded the following information about you: Temperature Pulse Respiration Blood pressure 98.4 degrees 98/minute 14/minute 100/71 Weight 65.3 kg Patricia Hobson APRN.CNP 11/11/2017 10:42 AM Signed CC Patient presents with: migraine headaches HPI Colleen Joana Milian is a 42 year old year [...] Gestational diabetes 2009 - History of alcoholism ([facility]) 04/19/2015 - Mild persistent asthma without complication 12/20/2015 - Orbital floor (blow-out) closed fracture ([facility]) 10/06/2015 right eye - Periodic headache syndrome, not intractable 12/20/2015 - Previous delivery, antepartum condition or complication 12/11/2005 - Scoliosis 2006 chronic upper and lower back pain - Seasonal allergies 12/20/2015 - Uncontrolled type 2 diabetes mellitus without complication, with long-term current use of insulin ([facility]) 06/03/2017 - Varicose veins of other sites [...] before meals and at bedtime using sliding ecxqc721-955 mg/dl = 1 lpkg597-123 mg/dl = 2 vfoiu922-776 mg/dl = 3 mubgo629- 309 mg/dl = 4 yfedj001-783 mg/dl = 5 bjwlo641-226 mg/dl = 6 bzevu902-012 mg/dl = 7 unitsGreater than 449 call physician insulin detemir U-100 (LEVEMIR FLEXTOUCH U-100 INSULN) 100 unit/mL (3 mL) inpn injection Inject 27 Units subcutaneously daily at bedtime. alcohol swabs padm Apply 1 application to affected area four times daily. Insulin [place], Disposable, (BD ULTRA-FINE LUCIO PEN NEEDLE) 32 [...] Date Reviewed: 11/11/2017 Reviewed by: Ani Aguayo Alumni Relations Officer - Fully Assessed Reason for Visit: migraine [...] EMERGENCY DEPARTMENT Observed: 10/17/2017 Status: F Source: KECHI SUMMARY 8:17 PM [facility] REPOSITORY [facility] Medical Records Department [address] [place] [address] Emergency Department Summary 10/17/172014 MR#: [id number] Acct: [id number] Name: COLLEEN MILIAN Rep #: [id number] : 1975 42 From: Lazaro Jacques MD [...] thigh hematoma This note was generated with FlowCardia dictation software. It may contain incorrect words, [...] problems, contact your Primary Care Provider. Call [facility] ([phone]) or report to the closest Emergency Room. Call 911 if necessary. 10/17/172016 <Electronically signed by Lazaro Jacques MD> Date Lazaro Jacques MD Cosigner Signature (If Indicated): Date CC: Timmy Park MD DISCHARGE INSTRUCTION Observed: 10/17/2017 Status: F Source: RACHANA 8:17 PM [facility] REPOSITORY [facility] Medical Records Department [address] [place] [address] Discharge Instruction 10/17/172016 MR#: [id number] Acct: [id number] Name: COLLEEN MILIAN Rep #: [id number] : 1975 42 From: Lazaro Jacques MD [...] problems, contact your Primary Care Provider. Call [facility] ([phone]) or report to the closest Emergency Room. Call 911 if necessary. 10/17/17 2017 <Electronically signed by Lazaro Jacques MD> Date Lazaro Jacques MD Cosigner Signature (If Indicated): Date CC: Timmy Park MD CBC W/DIFF, AUTOMATED Collected: 10/17/2017 Status: F Source: KECHI 7:55 PM [facility] REPOSITORY TYPE CODE TESTS RESULT OUT OF [...] Lymph 4.10 Performed By: #### L100.0100 #### [facility] [address] [place], [address] EMERGENCY REPORT Observed: 10/16/2017 Status: F Source: [facility] 9:55 PM [facility] EMERGENCY ROOM REPORT NAME ACCOUNT SEX AGE ADMIT DISCHARGE PT MED. RECORD# NUMBER DATE DATE TYPE COLLEEN MILIAN [id number] F 42 10/13/17 10/13/17 3 K [id number] ROOM: ER DATE OF : 1975 DICTATING [...] discharged in stable condition. Dictated By: Álvaro Grazon DO 10/14/17 20:08 JOB #: [id number] Page 1 of 2 COLLEEN MILIAN Emergency Room Report Transcribed By: am 10/15/17 15:38 Electronically signed by: LEXIE Garzon D.O. 10/16/17 21:55 Page 2 of 2 COLLEEN MILIAN Emergency Room Report EMERGENCY DEPARTMENT Observed: 10/10/2017 Status: F Source: KECHI SUMMARY 11:03 PM [facility] REPOSITORY [facility] Medical Records Department [address] [place] [address] Emergency Department Summary 10/10/17 2224 MR#: [id number] Acct: [id number] Name: COLLEEN MILIAN Rep #: [id number] : 1975 42 From: Corby Sanabria MD [...] hip pain This note was generated with FlowCardia dictation software. It may contain incorrect words, [...] your Primary Care Provider. Call [facility] ([phone]) or report to the closest Emergency Room. Call 911 if necessary. 10/10/17 3643 <Electronically signed by Corby Sanabria MD> Date Corby Sanabria MD Cosigner Signature (If Indicated): Date CC: Timmy Park MD DISCHARGE INSTRUCTION Observed: 10/10/2017 Status: F Source: RACHAAN 11:03 PM [facility] REPOSITORY [facility] Medical Records Department [address] [place] [address] Discharge Instruction 10/10/17 2227 MR#: [id number] Acct: [id number] Name: COLLEEN MILIAN Rep #: [id number] : 1975 42 From: Corby Sanabria MD [...] your Primary Care Provider. Call [facility] ([phone]) or report to the closest Emergency Room. Call 911 if necessary. 10/10/17 2303 <Electronically signed by Corby Sanabria MD> Date Corby Sanabria MD Cosigner Signature (If Indicated): Date CC: Timmy Park MD PROGRESS Observed: 10/05/2017 Status: COMPLETED Source: JOINT BASE MDL 12:01 PM [facility] REPOSITORY HNO ID: [id number] Author: Shanelle Carpenter Cma Service: (none) Author Type: (none) Type: Progress Notes Filed: 10/05/2017 12:01 PM Note Text: Letter mailed to patient. PROGRESS Observed: 10/05/2017 Status: COMPLETED Source: JOINT BASE MDL 12:00 PM [facility] REPOSITORY HNO ID: [id number] Author: Shanelle Carpenter Cma Service: (none) Author Type: (none) Type: Progress Notes Filed: 10/05/2017 12:01 PM Note Text: Upcoming appointment 10/07. Patient due for Dm eye exam. Will send letter w/release form. EMERGENCY DEPARTMENT Observed: 10/05/2017 Status: F Source: KECHI SUMMARY 3:07 AM [facility] REPOSITORY [facility] Medical Records Department [address] [place] [address] Emergency Department Summary 10/04/17 2110 MR#: [id number] Acct: [id number] Name: COLLEEN MILIAN Rep #: [id number] : 1975 42 From: Harinder Hall MD [...] Tobacco abuse This note was generated with Kurbo Healthation software. It may contain incorrect words, spelling, [...] your Primary Care Provider. Call [facility] ([phone]) or report to the closest Emergency Room. Call 911 if necessary. 10/05/17 0307 <Electronically signed by Harinder Hall MD> Date Harinder Hall MD Cosigner Signature (If Indicated): Date CC: Timmy Park MD CNPTOUTREACH Observed: 10/05/2017 Status: COMPLETED Source: JOINT BASE MDL 12:00 AM [facility] REPOSITORY Patient Outreach (INTMWS) RUKHSANACOLLEEN ([id number]) 1975 F Date Time Provider Department 10/05/17 SHANELLE CARPENTER ([facility]) INTMWS During your visit today, we recorded the following information about you: Shanelle Abhishek [facility] 10/05/2017 12:01 PM Signed Upcoming appointment 10/07. Patient due for Dm eye exam. Will send letter w/release form. Shanelle Abhishek [facility] 10/05/2017 12:01 PM Signed Letter mailed to [...] Date Reviewed: 09/15/2017 Reviewed by: Ani Aguayo [facility] - Fully Assessed Reason for Visit: PHMA/Care Gap Outreach [7598] Prescriptions as of 10/05/2017 Sig: COMPOUNDED PRESCRIPTION [...] diabetes mellitus without c*INVALID FOR* Letter Text [place] Department of Internal Medicine Timmy Park MD [address] [place] [id number] Dear Colleen Milian Your health care is [...] blindness Thank you, Timmy Park MD Letter Text Medicine [place] [address] [place] [address] Office: [phone] Timmy Marie MD REQUEST FOR EYE EXAM FINDINGS April 18, 2016 Dear eye resident care coordinator, Thank you for coordinating eye care for [...] Patient is to return: Encounter Status:Closed by SHANELLE CARPENTER CMA on 10/05/17 KNEE 3 VIEWS Observed: 10/04/2017 Status: F Source: KECHI 8:17 PM [facility] REPOSITORY [facility] Imaging Services [address] [place] [address] Knee 3 Views MR#: [id number] Acct: [id number] Name: COLLEEN MILIAN Rep #: [id number] : 1975 F 42 From: Rufino Justo CORTES PCP: Timmy Park MD Status: REG ER Study: Knee 3 Views Date of Exam: 10/04/17 Exam# [id number] Ordering Dr: Harinder Hall MD STUDY: X-RAY [...] , CC: Harinder Hall; Timmy Park MD Ext Js Developer: Signed KNEE 3 VIEWS Observed: 10/04/2017 Status: F Source: KECHI 8:14 PM [facility] REPOSITORY [facility] Imaging Services [address] [place] [address] Knee 3 Views MR#: [id number] Acct: [id number] Name: COLLEEN MILIAN Rep #: [id number] : 1975 F 42 From: Rufino Kemp DO PCP: Timmy Park MD Status: REG ER Study: Knee 3 Views Date of Exam: 10/04/17 Exam# [id number] Ordering Dr: Harinder Hall MD STUDY: X-RAY [...] , CC: Harinder Hall; Timmy Park MD Ext Js Developer: Signed CNOV Observed: 09/15/2017 Status: COMPLETED Source: JOINT BASE MDL 3:00 PM [facility] REPOSITORY Office Visit (INTMWS) COLLEEN MILIAN ([id number]) 1975 F Date Time Provider Department 09/15/17 3:00 PM PATRICIA HOBSON (ROBIN) INTMWS During [...] pain and sciatica. Has been evaluated by [facility] less than a year ago for [...] 12/20/2015 - Orbital floor (blow-out) closed fracture ([facility]) 10/06/2015 right eye - Periodic headache syndrome, not intractable 12/20/2015 - Previous delivery, antepartum condition or complication 12/11/2005 - Scoliosis 2006 chronic upper and lower back pain - Seasonal allergies 12/20/2015 - Uncontrolled type 2 diabetes mellitus without complication, with long-term current use of insulin ([facility]) 06/03/2017 - Varicose veins of other sites [...] before meals and at bedtime using sliding dgacy697-696 mg/dl = 1 uvfq324-453 mg/dl = 2 izepp438-550 mg/dl = 3 ynzcr348- 309 mg/dl = 4 hkiya775-551 mg/dl = 5 hlusw536-791 mg/dl = 6 bilot740-455 mg/dl = 7 unitsGreater than 449 call physician insulin detemir U-100 (LEVEMIR FLEXTOUCH U-100 INSULN) 100 unit/mL (3 mL) inpn injection Inject 27 Units subcutaneously daily at bedtime. alcohol swabs padm Apply 1 application to affected area four times daily. Insulin [place], Disposable, (BD ULTRA-FINE LUCIO PEN NEEDLE) 32 [...] agreeable to treatment plan. MATTHEW Snell APRN.CNP 09/15/2017 3:08 PM Signed Follow-up with orthopedics [...] Date Reviewed: 09/15/2017 Reviewed by: Ani Aguayo Alumni Relations Officer - Fully Assessed Reason for Visit: left [...] 09/15/17 PROGRESS Observed: 09/15/2017 Status: COMPLETED Source: JOINT BASE MDL 2:58 PM [facility] REPOSITORY O ID: [id number] Author: Patricia Hobson Service: (none) Author Type: [...] pain and sciatica. Has been evaluated by [facility] less than a year ago for [...] Gestational diabetes 2009 - History of alcoholism ([facility]) 04/19/2015 - Mild persistent asthma without complication 12/20/2015 - Orbital floor (blow-out) closed fracture ([facility]) 10/06/2015 right eye - Periodic headache syndrome, not intractable 12/20/2015 - Previous delivery, antepartum condition or complication 12/11/2005 - Scoliosis 2006 chronic upper and lower back pain - Seasonal allergies 12/20/2015 - Uncontrolled type 2 diabetes mellitus without complication, with long-term current use of insulin ([facility]) 06/03/2017 - Varicose veins of other sites [...] before meals and at bedtime using sliding -337 mg/dl = 1 ebdo020-817 mg/dl = 2 ksoqm817-716 mg/dl = 3 bclse615-319 mg/dl = 4 wuuqa543-529 mg/dl = 5 vsiyb501-436 mg/dl = 6 -748 mg/dl = 7 unitsGreater than 449 call physician insulin detemir U-100 (LEVEMIR FLEXTOUCH U-100 INSULN) 100 unit/mL (3 mL) inpn injection Inject 27 Units subcutaneously daily at bedtime. alcohol swabs padm Apply 1 application to affected area four times daily. Insulin [place], Disposable, (BD ULTRA-FINE LUCIO PEN NEEDLE) 32 [...] Patient agreeable to treatment plan. Patricia Hobson APRN.SWEET DOUGH MIXER PT D/C SUMMARY (1) Observed: 08/18/2017 Status: F Source: [place] 9:16 AM [facility] REPOSITORY [facility] Physical Therapy [facility] [address] [place], [place] [address] Fax REHABILITATION SERVICES DISCHARGE SUMMARY MR#: [id number] Acct: [id number] Name: COLLEEN MILIAN Rep #: [id number] : 1975 41 From: Perez Cat DPT, OCS, CSCS Referring DrMeghana: Corby Lopez Status: REG RCR Insurance: [facility]IN NETWORK SELF PAY INSURANCE HP - [...] please feel free to call me at [phone]. Thank you for the referral of this patient. Sincerely, Perez Cat DPT, OC <Electronically signed by Perez Cat DPT, OCS, CSCS> 08/18/17 0916 CC: Corby Lopez; Timmy Park MD EBG Signed CBC AND DIFFERENTIAL Collected: 08/14/2017 Status: F Source: [facility] [facility] [facility] 11:20 AM [facility] REPOSITORY TYPE CODE TESTS [...] k/uL Abs Lymph 2.99 LAB AMONO % [place]% 5.1 LAB AAMONO <0.87 k/uL Abs [place] 0.53 LAB AEOS % Eosin% 1.3 LAB AAEOS <0.46 k/uL Abs Eosin 0.14 LAB ABASO % Baso% 0.3 LAB AABASO <0.11 k/uL Abs Baso 0.03 LAB AUNRBC 0 /100 WBC NRBCs 0.0 LAB ABNRBC <0.01 k/uL Absolute nRBC <0.01 LAB DTYP DTYPE Auto Diff Performed By: #### CBCDIF, FERR #### [facility] [address] [address] FERRITIN Collected: 08/14/2017 Status: F Source: [place] 11:20 AM [facility] REPOSITORY TYPE CODE TESTS RESULT OUT OF REFERENCE UNITS RANGE LAB FERR 14.7-205.1 ng/mL Ferritin 22.8 Performed By: #### CBCDIF, FERR #### [facility] [address] [place], [place] [id number] PROGRESS Observed: 08/14/2017 Status: COMPLETED Source: [place] 10:57 AM [facility] REPOSITORY HNO ID: [id number] Author: Patricia (Multimedia Artist) Older Service: (none) Author Type: Nurse Practitioner [...] Gestational diabetes 2009 - History of alcoholism ([facility]) 04/19/2015 - Mild persistent asthma without complication 12/20/2015 - Orbital floor (blow-out) closed fracture ([facility]) 10/06/2015 right eye - Periodic headache syndrome, not intractable 12/20/2015 - Previous delivery, antepartum condition or complication 12/11/2005 - Scoliosis 2006 chronic upper and lower back pain - Seasonal allergies 12/20/2015 - Uncontrolled type 2 diabetes mellitus without complication, with long-term current use of insulin ([facility]) 06/03/2017 - Varicose veins of other sites [...] before meals and at bedtime using sliding rmedf548-788 mg/dl = 1 lbzp633-966 mg/dl = 2 -451 mg/dl = 3 smubi737-313 mg/dl = 4 -342 mg/dl = 5 outcw330- 399 mg/dl = 6 vmbjy454-652 mg/dl = 7 unitsGreater than 449 call [...] APRN.CNP CNOV Observed: 08/14/2017 Status: COMPLETED Source: [place] 10:40 AM [facility] REPOSITORY Office Visit (INTMWS) COLLEEN MILIAN ([id number]) 1975 F Date Time Provider Department 08/14/17 10:40 AM PATRICIA HOBSON (ROBIN) INTMWS During your visit today, we recorded the following information about you: Temperature Pulse Respiration Blood pressure 97.6 degrees 86/minute 14/minute 120/80 Weight 66.6 kg Patricia Hobson APRN.CNP 08/14/2017 11:18 AM Signed CC: Patient presents with: restless legs HPI Colleen Joana Rukhsana is a 41 year old female who [...] Gestational diabetes 2009 - History of alcoholism ([facility]) 04/19/2015 - Mild persistent asthma without complication 12/20/2015 - Orbital floor (blow-out) closed fracture ([facility]) 10/06/2015 right eye - Periodic headache syndrome, not intractable 12/20/2015 - Previous delivery, antepartum condition or complication 12/11/2005 - Scoliosis 2006 chronic upper and lower back pain - Seasonal allergies 12/20/2015 - Uncontrolled type 2 diabetes mellitus without complication, with long-term current use of insulin ([facility]) 06/03/2017 - Varicose veins of other sites [...] before meals and at bedtime using sliding jtvyj855-738 mg/dl = 1 vfmw163-748 mg/dl = 2 - 269 mg/dl = 3 -668 mg/dl = 4 ugkqy472-575 mg/dl = 5 xnyjn807-262 mg/dl = 6 vfyjp567-528 mg/dl = 7 unitsGreater than 449 call [...] Patient agreeable to treatment plan. Patricia Hobson APRN.SWEET DOUGH MIXER Referring Provider: SELF [200] Allergies As of [...] Date Reviewed: 08/14/2017 Reviewed by: Ani Aguayo Alumni Relations Officer - Fully Assessed Reason for Visit: restless legs [Other] Primary Visit Diagnosis:Restless legs [G25.81] Order(s):CBC + DIFF [SQCBCDIF] Order #: [id number] FUTURE FERRITIN BLD [SQFERR] Order #: [id number] FUTURE Prescriptions as of 08/14/2017 Sig: NYSTATIN [...] 08/14/17 PROGRESS Observed: 08/08/2017 Status: COMPLETED Source: [place] 8:26 AM [facility] REPOSITORY O ID: [id number] Author: Timmy Park Service: (none) Author Type: [...] complication, with long-term current use of insulin ([facility]) - ICD9: 250.02, V58.67, ICD10: E11.65, Z79.4 Improving. - Continue current medications Timmy Park MD CNOV Observed: 08/08/2017 Status: COMPLETED Source: [place] 8:00 AM [facility] REPOSITORY Office Visit (INTMWS) MILIANCOLLEEN ([id number]) 1975 F Date Time Provider Department 08/08/17 8:00 AM TIMMY PARK INTMWS During your visit today, we recorded the following information about you: Temperature Pulse Respiration Blood pressure 97.3 degrees 88/minute 20/minute 110/72 Weight Last Period 66.2 kg 08/03/17 Timmy Park 08/08/2017 8:30 AM Signed This note was created using NoteWriter. Subjective [...] complication, with long-term current use of insulin ([facility]) - ICD9: 250.02, V58.67, ICD10: E11.65, Z79.4 [...] nasal drainage Date Reviewed: 08/08/2017 Reviewed by: Umu Johnson Cma - Fully Assessed Reason for Visit: LESION, SKIN [936] Cmt: x 5 days - red spot - hurts to touch - has put nothing on the area - no fever or chills Reason For Visit History Recorded Primary Visit Diagnosis:Intertrigo [L30.4] Other Visit Diagnosis:Uncontrolled type 2 diabetes mellitus without complication, with long-term current use of insulin ([facility]) [E11.65, Z79.4] Order(s):nystatin (MYCOSTATIN) creamApply 1 application [...] EVALUATION (1) Observed: 07/28/2017 Status: F Source: [facility] PT 9:45 [facility] REPOSITORY [facility] Physical Therapy [facility] [address] [place] [address] Fax REHABILITATION SERVICES INITIAL EVALUATION MR#: [id number] Acct: [id number] Name: COLLEEN MILIAN Rep #: [id number] : 1975 41 From: Perez HILLT, OCS, CSCS Referring Dr.: Corby Lopez Status: REG RCR Insurance: [facility] *IN NETWORK SELF PAY INSURANCE Patient's Visit Information COLLEEN MILIAN is a 41 year old F referred to Physical Therapy by Corby Lopez MD with a diagnosis of cervical disc degeneration. Date of Evaluation: 07/27/17 Physical Therapist: Perez Cat DPT, OC - Visit Plan Frequency: 2-3x [...] not work, but will ride with truck driver salesperson boyfriend soon. Not worried about sitting in [...] to be FAXED BACK to us at [phone] for Medicare purposes. Please let me know if there are questions or concerns regarding this plan of care. Physician Signature: Date: <Electronically signed by Perez Cat DPT, OCS, CSCS> 07/28/17 0945 CC: Corby Lopez; Timmy Park MD EBG Signed For Medicare only, by signing this I certify the plan of care. Physicians Signature Date EMERGENCY DEPARTMENT Observed: 07/18/2017 Status: F Source: [facility] SUMMARY 1:15 AM [facility] REPOSITORY [facility] Medical Records Department [address] [place] [address] Emergency Department Summary 07/18/17 0112 MR#: [id number] Acct: [id number] Name: COLLEEN MILIAN Rep #: [id number] : 1975 41 From: Mario Velasquez PCP: [...] muscle strain This note was generated with FlowCardia dictation software. It may contain incorrect words, [...] your Primary Care Provider. Call [facility] ([phone]) or report to the closest Emergency Room. Call 911 if necessary. 07/18/17 0115 <Electronically signed by Mario Velasquez> Date Mario Velasquez Cosigner Signature (If Indicated): Date CC: Timmy Park MD LIPID PANEL, BASIC Collected: 07/15/2017 Status: F Source: [place] 9:40 AM [facility] REPOSITORY TYPE CODE TESTS [...] Desk Reference: National Heart, Lung, and Blood [place]. National Institutes of Health. 2001: NIH Publication No. 01-3305. 2. An International Atherosclerosis Society position paper: global recommendations for the management of dyslipidemia: executive summary, Atherosclerosis. 2014: 232(2):410-413. Performed By: #### LIPB, LDLDCT #### [facility] [address] [place], [place] [address] LDL-CHOL, DIRECT Collected: 07/15/2017 Status: F Source: [place] 9:40 AM [facility] REPOSITORY TYPE CODE TESTS [...] 106 Performed By: #### LIPB, LDLDCT #### [facility] [address] [place], [place] [address] ALBUMIN/CREAT RATIO Collected: 07/15/2017 Status: F Source: [place] 9:40 AM [facility] REPOSITORY TYPE CODE TESTS RESULT OUT OF REFERENCE UNITS RANGE LAB UCRR 20-300 mg/dL 158.8 Creatinine,Ur ine,Ran LAB UALBR 0.0-23.0 mg/L <12.0 Albumin Urine Random LAB UALBCR 0-30 mg/g Not Albumin/Creat calculated Ratio Performed By: #### UACR #### [facility] [address] [place], [place] [address] PROGRESS Observed: 07/15/2017 Status: COMPLETED Source: [place] 8:44 AM [facility] REPOSITORY HNO ID: [id number] Author: Patricia (Multimedia Artist) Older Service: (none) Author Type: Nurse Practitioner [...] Gestational diabetes 2009 - History of alcoholism ([facility]) 04/19/2015 - Mild persistent asthma without complication 12/20/2015 - Orbital floor (blow-out) closed fracture ([facility]) 10/06/2015 right eye - Periodic headache syndrome, not intractable 12/20/2015 - Previous delivery, antepartum condition or complication 12/11/2005 - Scoliosis 2006 chronic upper and lower back pain - Seasonal allergies 12/20/2015 - Uncontrolled type 2 diabetes mellitus without complication, with long-term current use of insulin ([facility]) 06/03/2017 - Varicose veins of other sites [...] before meals and at bedtime using sliding myspo998-777 mg/dl = 1 tjok003-984 mg/dl = 2 flino884-973 mg/dl = 3 ivmsz837-687 mg/dl = 4 -662 mg/dl = 5 xtgqo163- 399 mg/dl = 6 ijnug984-199 mg/dl = 7 unitsGreater than 449 call [...] APRN.CNP CNOV Observed: 07/15/2017 Status: COMPLETED Source: [place] 8:40 AM [facility] REPOSITORY Office Visit (INTMWS) COLLEEN MILIAN ([id number]) 1975 F Date Time Provider Department 07/15/17 [...] Gestational diabetes 2009 - History of alcoholism ([facility]) 04/19/2015 - Mild persistent asthma without complication 12/20/2015 - Orbital floor (blow-out) closed fracture ([facility]) 10/06/2015 right eye - Periodic headache syndrome, not intractable 12/20/2015 - Previous delivery, antepartum condition or complication 12/11/2005 - Scoliosis 2007 chronic upper and lower back pain - Seasonal allergies 12/20/2015 - Uncontrolled type 2 diabetes mellitus without complication, with long-term current use of insulin ([facility]) 06/03/2017 - Varicose veins of other sites [...] before meals and at bedtime using sliding epmdn071-603 mg/dl = 1 wpom236-044 mg/dl = 2 - 269 mg/dl = 3 ajzcm261-543 mg/dl = 4 pbypz820-739 mg/dl = 5 -052 mg/dl = 6 ssupi269-743 mg/dl = 7 unitsGreater than 449 call [...] this call office Referring Provider: TIMMY PARK [[id number]] Allergies As of Date: 07/15/2017 Noted Allergy Reaction AMOXICILLIN 04/16/2017 8 - GI Upset Comments: GI upset BEE STINGS [Other] 12/11/2005 Comments: nasal drainage DUST 12/11/2005 Comments: nasal drainage DUST MITES 12/11/2005 Comments: nasal drainage NAPROXEN 01/13/2014 8 - GI Upset 14 - Other: See Comments Comments: spotting POLLEN 12/11/2005 Comments: nasal drainage Date Reviewed: 07/15/2017 Reviewed by: Ani Aguayo Alumni Relations Officer - Fully Assessed Reason for Visit: 6 week follow up [Other] Cmt: Diabetes Visit Diagnosis:Uncontrolled type 2 diabetes mellitus without complication, with long-term current use of insulin ([facility]) [E11.65, Z79.4] Order(s):blood sugar diagnostic (BLOOD GLUCOSE [...] Encounter Status:Closed by PATRICIA HOBSON CNP on 07/15/17 CREATININE FINGERSTICK Collected: 07/08/2017 Status: F Source: [place] 7:49 AM [facility] REPOSITORY TYPE CODE TESTS RESULT OUT OF RANGE REFERENCE UNITS LAB L9100.0210 0.55-1.02 mg/dL Normal CREATININE WB 0.8 LAB L9100.0220 >60 mL/min EGFR WB Normal > 60.0000 Performed By: #### L9100.0200 #### [facility] Laboratory Point of Care [address] [place] [address] SINUS/FACIAL BONE WITH Observed: 07/08/2017 Status: F Source: [facility] CONTRAS 7:40 AM [facility] REPOSITORY [facility] Imaging Services [address] [place] [address] Sinus/Facial Bone WITH Contras MR#: [id number] Acct: [id number] Name: COLLEEN MILIAN Rep #: [id number] : 1975 F 41 From: Saul Colon MD PCP: Timmy Park MD Status: REG CLI Study: Sinus/Facial Bone WITH Contras Date of Exam: 07/08/17 Exam# [id number] Ordering Dr: Roberto Holden MD STUDY: CT [...] Saul Colon MD at 13:15 EDT Tel [phone], Service support , CC: Roberto Holden MD; Timmy Park MD Ext Js Developer: Signed PLASTIC SURGERY Observed: 07/02/2017 Status: F Source: KE[facility]I VISIT REPORT 1:45 PM [facility] REPOSITORY [facility] [address] [place] [address] OFFICE VISIT Date of Service: 06/11/17 MR#: [id number] Acct: [id number] Name: COLLEEN MILIAN Rep #: [id number] : 1975 Provider: Roberto Holden MD Age/Sex: 41/F Location[facility] Status: Signed Intake Vital Signs06/11/17 Height 5 ft 2 in 06/11/17 Weight: 145 lb 2 oz Intake Visit Reasons: postop surgery 04/28/17 Dyehouse Worker Required: No Accompanied by: Life Partner Is [...] [Rx Confirmed 06/30/17] Fluticasone 0.05% [Flonase Nasal [place]] 1 spray NASAL DAILY 05/01/16 [History Confirmed [...] #28 cap 06/30/17 [Rx] Hydrocodone Bitart/Apap 5-325 [[place] 5/325] 1 - 2 tab PO Q4H [...] 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 Was not placed on antibiotics and developed pain soon after. [facility] She used Tylenol and ibuprofen and comes [...] given short course of pain control with T[place]lake. She will follow-up as an outpatient. Treatment Plan: [] Disposition: [] Impression: [] Post op dental site pain This note was generated with FlowCardia dictation software. It may contain incorrect words, [...] your Primary Care Provider. Call [facility] ([phone]) or report to the closest Emergency Room. Call 911 if necessary. 07/01/17 0625 <Electronically signed by Carlo Bowens MD> Date Carlo Bowens MD Cosigner Signature (If Indicated): Date CC: Timmy Park MD DISCHARGE INSTRUCTION Observed: 07/01/2017 Status: F Source: [facility] 6:25 AM [facility] Medical Records Department [address] [place] [address] Discharge Instruction 06/30/17 2206 MR#: [id number] Acct: [id number] Name: COLLEEN MILIAN Rep #: [id number] : 1975 41 From: Carlo Bowens MD PCP: Timmy Park MD Status: DEP ER ED Disposition - Plan for ED Patient: Disposition: Home or Assisted Living Chief Complaint: Dental Instructions: ED Tooth Pain Prescriptions: Hydrocodone Bitart/Apap 5-325 [[place] 5/325] 1 - 2 tab PO Q4H [...] your Primary Care Provider. Call [facility] ([phone]) or report to the closest Emergency Room. Call 911 if necessary. 07/01/17 0625 <Electronically signed by Carlo Bowens MD> Date Carlo Bowens MD Cosigner Signature (If Indicated): Date CC: Timmy Park MD CNCO Observed: 06/30/2017 Status: COMPLETED Source: [place] [facility] 1:12 PM [facility] REPOSITORY HNO ID: [id number] Author: Mammography Coordinator Service: (none) Author Type: Physician Type: Letter Filed: 07/01/2017 11:32 PM Note Text: June 30, 2017 PID: [id number] Colleen Milian [address] [place] [address] Dear Ms. Milian, Your recent breast imaging examination performed on 06/30/2017 showed an area that we believe is probably benign (not cancer). A six month follow-up is recommended to ensure your breast health. Please call [phone] to schedule an appointment for these tests [...] care needs. Sincerely, Dr. Ellis Interpreting Radiologist [facility] (# mo Follow-up) CNCO Observed: 06/30/2017 Status: COMPLETED Source: [place] 1:12 PM [facility] REPOSITORY HNO ID: [id number] Author: Mammography Coordinator Service: (none) Author Type: Physician Type: Letter Filed: 07/01/2017 11:32 PM Note Text: June 30, 2017 PID: [id number] Colleen Milian [address] [place] [address] Dear Ms. Milian, Your recent breast imaging examination performed on 06/30/2017 showed an area that we believe is probably benign (not cancer). A six month follow-up is recommended to ensure your breast health. Please call [phone] to schedule an appointment for these tests [...] care needs. Sincerely, Dr. Ellis Interpreting Radiologist [facility] (# mo Follow-up) [facility] Rentabilities Observed: 06/30/2017 Status: F Source: [facility] 8:55 AM [facility] REPOSITORY * * *Final Report* * * DATE OF EXAM: Jun 30 2017 8:55AM [facility] 0593 - [employer] BREAST [facility] medical LT / PROCEDURE REASON: 6 month left breast / abnormal mammogram * * * * Physician Interpretation * * * * #[id number] - [facility] DIAGNOSTIC LT UNILATERAL LEFT DIGITAL DIAGNOSTIC MAMMOGRAM WITH CAD: 06/30/2017 HISTORY: 6 Month Left Breast / Abnormal Mammogram /patient reports no breast symptoms /priors available for comparison. RESULT: TECHNIQUE: The study was acquired using full field digital technology and interpreted from soft copy. Current study was also evaluated with a Computer Aided Detection (CAD). Comparison is made to exams dated: 12/30/2016 mammogram - [facility] and 12/25/2016 mammogram - [facility]. The tissue of the left breast is heterogeneously dense. This may lower the sensitivity of mammography. There is an asymmetry in the left breast anterior depth lateral region seen on the craniocaudal view only. No other significant masses or calcifications are seen in the breast. PROBABLY BENIGN - SHORT TERM INTERVAL FOLLOW-UP RECOMMENDED The asymmetry in the left breast is probably benign. #[id number] - [facility] BREAST [facility] ULTRASOUND OF LEFT BREAST: 06/30/2017 RESULT: Comparison is made to exams dated: 12/30/2016 mammogram - [facility] and 12/25/2016 mammogram - [facility]. Ultrasound of the left breast was performed. [...] recommended to demonstrate stability. Chino galarza/liam:06/30/2017 13:12:24 Secretary: Brii JORGE)(Familia), [facility] letter sent: # Mo FU OVERALL STUDY BIRADS: 3 Probably benign finding - short term interval follow-up recommended Ext Js Developer: Liam Transcribe Date/Time: Jun 30 2017 8:14A Dictated by : CHINO ELLIS DO This examination was interpreted and the report reviewed and electronically signed by: CHINO ELLIS DO on Jun 30 2017 1:12PM EST [id number] Observed: 06/30/2017 Status: COMPLETED Source: [place] [facility] 8:45 AM [facility] REPOSITORY O ID: [id number] Author: Rachele Shine Rdms Service: (none) Author [...] Shine Rdms June 30, 2017 8:45 AM [facility] DIAGNOSTIC LT Observed: 06/30/2017 Status: F Source: [place] [facility] 8:34 AM [facility]AMP[facility] REPOSITORY * * *Final Report* * * DATE OF EXAM: Jun 30 2017 8:34AM W 0621 - [facility] DIAGNOSTIC LT / PROCEDURE REASON: 6 month left breast / abnormal mammogram * * * * Physician Interpretation * * * * RESULT: #[id number] - [facility] DIAGNOSTIC LT UNILATERAL LEFT DIGITAL DIAGNOSTIC MAMMOGRAM WITH CAD: 06/30/2017 HISTORY: 6 Month Left Breast / Abnormal Mammogram /patient reports no breast symptoms /priors available for comparison. RESULT: TECHNIQUE: The study was acquired using full field digital technology and interpreted from soft copy. Current study was also evaluated with a Computer Aided Detection (CAD). Comparison is made to exams dated: 12/30/2016 mammogram - [facility] and 12/25/2016 mammogram - [facility]. The tissue of the left breast is heterogeneously dense. This may lower the sensitivity of mammography. There is an asymmetry in the left breast anterior depth lateral region seen on the craniocaudal view only. No other significant masses or calcifications are seen in the breast. PROBABLY BENIGN - SHORT TERM INTERVAL FOLLOW-UP RECOMMENDED The asymmetry in the left breast is probably benign. #[id number] - [facility] BREAST LTD LT ULTRASOUND OF LEFT BREAST: 06/30/2017 RESULT: Comparison is made to exams dated: 12/30/2016 mammogram - [facility] and 12/25/2016 mammogram [facility]. Ultrasound of the left breast was [...] recommended to demonstrate stability. Chino galarza/liam:06/30/2017 13:12:24 Secretary: Brii JORGE)(Familia), [facility] letter sent: # Mo FU OVERALL STUDY BIRADS: 3 Probably benign finding - short term interval follow-up recommended Ext Js Developer: Liam Transcribe Date/Time: Jun 30 2017 8:14A Dictated by: CHINO ELLIS DO This examination was interpreted and the report reviewed and electronically signed by: CHINO ELLIS DO on Jun 30 2017 1:12PM EST [id number] Observed: 06/30/2017 Status: COMPLETED Source: [place] [facility] 8:13 AM [facility] REPOSITORY HNO ID: [id number] Author: Alyssa Hansen Service: (none) Author Type: (none) Type: Progress [...] REVIEWED: Not Applicable RADIOLOGY DEPARTMENT: Women's Health Left diag mammogram PERIPHERAL IV DATA: Not applicable SIGNED BY: Alyssa Hansen June 30, 2017 8:14 AM CNPTOUTREACH Observed: 06/30/2017 Status: COMPLETED Source: [place] [facility] 12:00 AM [facility] CAMPUS REPOSITORY Patient Outreach (FAMPST) COLLEEN MILIAN ([id number]) 1975 F Date Time Provider Department 06/30/17 TIMMY PARK During your visit today, we [...] Date Reviewed: 06/03/2017 Reviewed by: Eliana Huang Alumni Relations Officer - Fully Assessed Visit Diagnosis:Medication management [Z79.899] Order(s):ALBUMIN/CREAT RATIO RND UR [SQUACR] Order #: [id number] FUTURE LIPID PANEL BASIC [SQLIPB] Order #: [id number] FUTURE Prescriptions as of 06/30/2017 Sig: LOPERAMIDE [...] mellitus without c*INVALID FOR* Encounter Status:Closed by LORENA PRODUSER on 01/08/18 ORTHOPEDIC VISIT Observed: 06/28/2017 Status: F Source: RACHANA REPORT 11:07 AM [facility] REPOSITORY [facility] Orthopaedics AND Sports Medicine [address] [place] [address] OFFICE VISIT Date of Service: 06/24/17 MR#: [id number] Acct: [id number] Name: COLLEEN MILIAN Rep #: [id number] : 1975 Provider: Harinder Alvarez DO Age/Sex: 41/F Location[place] [facility] [place]: Signed Intake Intake Visit Reasons: KNEE [...] [Rx Confirmed 06/24/17] Fluticasone 0.05% [Flonase Nasal [place]] 1 spray NASAL DAILY 05/01/16 [History Confirmed [...] OR MORE Observed: 06/24/2017 Status: F Source: KECHI [employer] 2:00 PM [facility] REPOSITORY [facility] Imaging Services [address] [place] [address] Knee 4 or More Views MR#: [id number] Acct: [id number] Name: COLLEEN MILAIN Rep #: [id number] : 1975 F 41 From: Flora Milian MD PCP: Timmy Park MD Status: REG CLI Study: Knee 4 or More Views Date of Exam: 06/24/17 Exam# [id number] Ordering Dr: Harinder Alvarez DO STUDY: X-RAY [...] Service support , CC: Harinder Alvarez DO; Timmy Park MD Ext Js Developer: Signed PLASTIC SURGERY Observed: 06/22/2017 Status: F Source: KECHI VISIT REPORT 12:44 AM [facility] REPOSITORY [facility] [address] [facility] [address] [place] [address] OFFICE VISIT Date of Service: 05/27/17 MR#: [id number] Acct: [id number] Name: COLLEEN MILIAN Rep #: [id number] : 1975 Provider: Roberto Holden MD Age/Sex: 41/F Location: [facility] Status: Signed Intake Vital Signs05/27/17 Height 5 ft 2 in 05/27/17 Weight: 144 lb 6 oz Intake Visit Reasons: postop surgery 04/28/17 Dyehouse Worker Required: No Accompanied by: Friend Is patient [...] [Rx Confirmed 06/11/17] Fluticasone 0.05% [Flonase Nasal [place]] 1 spray NASAL DAILY 05/01/16 [History Confirmed [...] 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 mechanic grafts from the nasal septum - 04/28/17 [...] PLASTIC SURGERY Observed: 06/08/2017 Status: F Source: KECHI VISIT REPORT 7:19 PM [facility] REPOSITORY [facility] [address] [place] [address] OFFICE VISIT Date of Service: 05/13/17 MR#: [id number] Acct: [id number] Name: RUKHSANACOLLEEN Joana Rep #: [id number] : 1975 Provider: Roberto Holden MD Age/Sex: 41/F Location: [facility] Status: Signed Intake Vital Signs05/13/17 Body Mass Index (BMI) 26.0 05/13/17 Blood Pressure 132/82 05/13/17 Height 5 ft 2 in 05/13/17 Weight: 143 lb 6 oz Intake Visit Reasons: postop surgery 04/28/17 Dyehouse Worker Required: No Accompanied by: None Is patient [...] [Rx Confirmed 05/27/17] Fluticasone 0.05% [Flonase Nasal [place]] 1 spray NASAL DAILY 05/01/16 [History Confirmed [...] 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 mechanic grafts from the nasal septum - 04/28/17 [...] CC: PROGRESS Observed: 06/03/2017 Status: COMPLETED Source: JOINT BASE MDL 8:52 AM [facility] REPOSITORY HNO ID: [id number] Author: Timmy Park Service: (none) Author Type: Physician Type: Progress Notes Filed: 06/03/2017 9:16 AM Note Text: This note was created using Var[employer]ent Softwareter. 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 - A1C was still pending. 3. Diarrhea, unspecified type - ICD9: 787.91, ICD10: R19.7 Intermittent, chronic. - LOPERAMIDE 2 MG CAPSULE 15 minutes spent all for instruction. Timmy Park MD CNOV Observed: 06/03/2017 Status: COMPLETED Source: [place] B[place] MDL 8:20 AM [facility] REPOSITORY Office Visit (INTMWS) COLLEEN MILIAN ([id number]) 1975 F Date Time Provider Department 06/03/17 8:20 AM TIMMY PARK INTMWS During your visit today, we recorded the following information about you: Temperature Pulse Respiration Blood pressure 97.1 degrees 83/minute 16/minute 110/78 Weight 64.9 kg Timmy Park MD 06/03/2017 9:16 AM Signed This note was created using [employer]. Subjective Colleen Milian is a 41 year [...] before meals and at bedtime using sliding ttfig157-288 mg/dl = 1 hwmr735-418 mg/dl = 2 blxok075- 269 mg/dl = 3 -379 mg/dl = 4 gophz942-142 mg/dl = 5 xiphh594-784 mg/dl = 6 jgtyw289-132 mg/dl = 7 unitsGreater than 449 call [...] complication, with long-term current use of insulin ([facility]) - ICD9: 250.02, V58.67, ICD10: E11.65, Z79.4 newly diagnosed Change LEVEMIR to bedtime only, 25 units. 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 - A1C [...] Date Reviewed: 06/03/2017 Reviewed by: Eliana Huang Cma - Fully Assessed Reason for Visit: Recheck [92] Cmt: 6 month F/U Primary Visit Diagnosis:S/P nasal septoplasty [Z98.890] Other Visit Diagnoses:Uncontrolled type 2 diabetes mellitus without complication, with long-term current use of insulin ([facility]) [E11.65, Z79.4] Diarrhea, unspecified type [R19.7] Order(s):loperamide [...] encounter OXYCODONE-ACETAMINOPHEN 5 MG-325 MG TABLET >> Timmy Park MD 06/03/2017 9:10 AM post operative pain Problem [...] Encounter Status:Closed by TIMMY PARK MD on 3/7/18 BASIC METABOLIC PANL Collected: 06/02/2017 Status: F Source: JOINT BASE MDL 11:02 AM [facility] REPOSITORY TYPE CODE TESTS RESULT OUT OF REFERENCE UNITS RANGE LAB GLU 74-99 mg/dL High Glucose 158 Result Comment: The [place] Diabetes Association (ADA) provides guidance for cutoff [...] Standards of Medical Care in Diabetes 2016, [place] [employer]. Diabetes Care. 2016.39(Suppl 1). LAB [...] GFR. Performed By: #### BMP, HBA1C #### [facility] [address] [place] [address] HEMOGLOBIN A1C Collected: 06/02/2017 Status: F Source: JOINT BASE MDL 11:02 AM [facility] REPOSITORY TYPE CODE TESTS RESULT OUT OF REFERENCE UNITS RANGE LAB HGBA1C 4.3-5.6 % High Hemoglobin A1c 7.6 LAB HBA0 mg/dL Est. Average Glucose 171 Result Comment: eAG: (Estimated average glucose) is a calculated value from HgbA1c and is apprenticeship representative of the average blood glucose level in the last 2-3 month period. Performed By: #### BMP, HBA1C #### [facility] [address] [place], [place] [address] ALBUMIN URINE RANDOM Collected: 06/02/2017 Status: F Source: JOINT BASE MDL 10:57 AM [facility] REPOSITORY TYPE CODE TESTS RESULT OUT OF REFERENCE UNITS RANGE LAB UALBR 0.0-23.0 mg/L High Albumin Urine 28.8 Random Performed By: #### UALBR #### [facility] [address] [place], [place] [address] PROGRESS Observed: 05/20/2017 Status: COMPLETED Source: JOINT BASE MDL 12:54 PM [facility] REPOSITORY HNO ID: [id number] Author: Timmy Park Service: (none) Author Type: Physician Type: Progress Notes Filed: 05/20/2017 12:58 PM Note Text: This note was created using [employer]. Subjective Colleen Milian is a 41 year [...] before meals and at bedtime using sliding obejx253-514 mg/dl = 1 nhgm216-635 mg/dl = 2 -779 mg/dl = 3 wagug751-122 mg/dl = 4 vylxq951-932 mg/dl = 5 - 399 mg/dl = 6 -151 mg/dl = 7 unitsGreater than 449 call [...] OPERATIVE REPORT Observed: 05/10/2017 Status: F Source: KECHI 9:41 PM [facility] REPOSITORY [facility] Medical Records Department [address] [place] [address] Operative Report 04/28/17 2234 MR#: [id number] Acct: [id number] Name: COLLEEN MILIAN Rep #: [id number] : 1975 41 From: Roberto Holden MD PCP: Timmy Park MD Status: DIS IN Y [place] [facility] [id number] Report of Operation Date of Procedure: 04/28/17 Pre-Operative Diagnosis: 1. Nasal airway obstruction with difficulty breathing. 2. Internal nasal valve stenosis. 3. Deviated nasal septum. 4. Right orbital floor blowout fracture repair, sequela. 5. Smoker. Post-Operative Diagnosis: Same. Surgery/Procedure Performed:: 1. Septoplasty with submucous resection. 2. Repair of internal nasal 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 Description of [...] were included in a form from the [place] [employer]. Patient is aware that she will have a dorsal nasal splint for a few weeks and nasal packing for a few days. Encouraged the patient to stop smoking as it may have deleterious effects on wound healing. Urine Output - 200 ml. IV Fluids - 1500 ml. I used Merocel Rebolledo Nasal Airway Dressing x 2. Reference Number - 282168. Lot Number - [id number]. Expiration - June 29, 2019. I used external dorsal nasal splint. mothercraft nurse: None Type of Anesthesia:: General Specimen's removed: [...] to help with the creation of cartilage ordnance mechanic grafts. I kept 1 cm margin of [...] them out before placement of the cartilage ordnance mechanic grafts into the upper lateral cartilage area to improve the internal nasal valve angle and improve her breathing issues. The size of the cartilage ordnance mechanic grafts that I used from the nasal [...] Yes Code Visit Surgery Charges CPT - 49574 ICD-10 - J34.2, J98.8, R06.00, J34.89, S02.31xS 50637 J98.8, R06.00, J34.89, J34.2, S02.31xS 75558 J98.8, R06.00, J34.89, J34.2, S02.31xS 05/10/17 2141 <Electronically signed by Roberto Holden MD> Date Roberto Holden MD CC: Stella Castanon; Ephraim Tai D.O.; Roberto Holden MD; Timmy Park MD Signed 12 LEAD ELECTROCARDIOGRAM Observed: 05/05/2017 Status: F Source: RACHANA 8:54 AM [facility] REPOSITORY [facility] Cardiovascular [facility] [place] [address] 12 Lead EKG 04/29/17 0526 MR#: [id number] Acct: [id number] Name: COLLEEN MILIAN Rep #: [id number] : 1975 41 From: Demetri Sequeira MD [...] UNCONFIRMED Confirmed by DEMETRI SEQUEIRA MD ([id number]), assignment desk editor KERLINE MILIAN ([id number]) on 05/05/2017 8:54:15 AM Referred By: Roberto Holden Confirmed By:DEMETRI SEQUEIRA MD 05/05/17 0854 Date Demetri Sequeira MD CC: Stella Castanon; Timmy Park MD Signed 12 LEAD ELECTROCARDIOGRAM Observed: 05/05/2017 Status: F Source: KECHI 8:51 AM [facility] REPOSITORY [facility] Cardiovascular Services [address] [place] [address] 12 Lead EKG 04/28/17 1709 MR#: [id number] Acct: [id number] Name: COLLEEN MILIAN Rep #: [id number] : 1975 41 From: Demetri Sequeira MD Attending Dr: Roberto Holden MD Status: DIS IN Ordering Dr: Diomedes Dunaway MD Date: 04/28/17 Location: [facility] Sex: F C Admitted: 04/28/17 [...] found Confirmed by DEMETRI SEQUEIRA MD ([id number]), assignment desk editor KERLINE MILIAN ([id number]) on 05/05/2017 8:51:19 AM Referred By: Roberto Holden Confirmed By:DEMETRI SEQUEIRA MD 05/05/17 0851 Date Demetri Sequeira MD CC: Diomedes Dunaway MD; Timmy Park MD Signed DISCHARGE SUMMARY Observed: 05/04/2017 Status: F Source: KECHI 8:06 PM [facility] REPOSITORY [facility] Medical Records Department [address] [place] [address] [place] [address] Discharge Summary 05/01/17 1255 MR#: [id number] Acct: [id number] Name: COLLEEN MILIAN Rep #: [id number] : 1975 41 From: Roberto Holden MD PCP: Timmy Park MD Status: DIS IN Y [place] [facility] [id number] Discharge Date and Diagnosis Date of Admission: [...] Saul Colon MD at 9:10 EST Tel [phone], Service support , CONSULTATIONS Dr. Castanon - Hospitalist Group. Dr. Tai - Pulmonary Fruit Thinner. Operations: - - 04/28/17 - 1. Septoplasty with submucous resection. 2. Repair internal 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 Procedures: Intubation [...] 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 She tolerated the procedure well and was taken to the PACU in satisfactory condition. However while in the PACU, she developed acute hypoxic respiratory failure and had to be re-intubated without difficulty. She was then transferred to the ICU. Dr. Castanon from the Hospitalist Group was consulted for medical management and Dr. Tai, a Pulmonary Fruit Thinner, was consulted for ICU management. The following [...] #20 cap 02/24/16 Fluticasone 0.05% [Flonase Nasal [place]] 1 spray NASAL DAILY 05/01/16 Albuterol Inhaler [...] Roberto Holden MD When: one week. call [phone] for appt. Please Follow Up With: Melissa [...] BEDSIDE GLUCOSE Collected: 05/01/2017 Status: F Source: KECHI 4:59 PM [facility] REPOSITORY TYPE CODE TESTS RESULT OUT OF REFERENCE UNITS RANGE LAB L501.080 70-110 mg/dL High BEDSIDE GLU 182 Result Comment: MANAGEMENT OF PATIENT CARE PER NURSING PROTOCOL Performed By: #### L501.080 #### [facility] Point of Care [address] [facility] [place] [address] DISCHARGE INSTRUCTION Observed: 05/01/2017 Status: F Source: KECHI 12:54 PM [facility] REPOSITORY [facility] Medical Records Department [address] [place] [address] Instructions for Home/Discharge Instructions 05/01/17 1249 MR#: [id number] Acct: [id number] Name: COLLEEN MILIAN Rep #: [id number] : 1975 41 From: Roberto Holden MD [...] #20 capsule 02/24/16 Fluticasone 0.05% [Flonase Nasal [place]] 1 spray NASAL DAILY 05/01/16 Albuterol Inhaler [...] Roberto Holden MD When: one week. call [phone] for appt. Please Follow Up With: Melissa Bragg, CNC FIELD SERVICE ENGINEER-C When: Please contact office to establish care. Proposed Discharge Date: 05/01/17 05/01/17 1254 <Electronically signed by Roberto Holden MD> Date Roberto Holden MD CC: Melissa Bragg NP; Ephraim Tai D.O.; Timmy Park MD BEDSIDE GLUCOSE Collected: 05/01/2017 Status: F Source: RACHANA 11:59 AM [facility] REPOSITORY TYPE CODE TESTS RESULT OUT OF REFERENCE UNITS RANGE LAB L501.080 70-110 mg/dL High BEDSIDE GLU 154 Result Comment: MANAGEMENT OF PATIENT CARE PER NURSING PROTOCOL Performed By: #### L501.080 #### [facility] Point of Care [address] [place] [address] BEDSIDE GLUCOSE Collected: 05/01/2017 Status: F Source: RACHANA 8:38 AM [facility] REPOSITORY TYPE CODE TESTS RESULT OUT OF REFERENCE UNITS RANGE LAB L501.080 70-110 mg/dL High BEDSIDE GLU 197 Result Comment: MANAGEMENT OF PATIENT CARE PER NURSING PROTOCOL Performed By: #### L501.080 #### [facility] Point of Care [address] [place] [address] BEDSIDE GLUCOSE Collected: 05/01/2017 Status: F Source: RACHANA 6:44 AM [facility] REPOSITORY TYPE CODE TESTS RESULT OUT OF REFERENCE UNITS RANGE LAB L501.080 70-110 mg/dL High BEDSIDE GLU 192 Result Comment: MANAGEMENT OF PATIENT CARE PER NURSING PROTOCOL Performed By: #### L501.080 #### [facility] Point of Care [address] [place] [address] CBC-COMPLETE BLOOD CNT Collected: 05/01/2017 Status: F Source: RACHANA NO DIFF 5:42 AM [facility] REPOSITORY TYPE CODE TESTS RESULT OUT OF [...] MPV 11.2 Performed By: #### L100.0500 #### [facility] [address] [place], [place], [address] BASIC METABOLIC Collected: 05/01/2017 Status: F Source: RACHANA PROFILE (BMP) 5:42 AM [facility] REPOSITORY TYPE CODE TESTS RESULT OUT OF [...] Normal 7 Performed By: #### L500.2500 #### [facility] [address] [place], [address] BEDSIDE GLUCOSE Collected: 04/30/2017 Status: F Source: RACHANA 9:28 PM [facility] REPOSITORY TYPE CODE TESTS RESULT OUT OF REFERENCE UNITS RANGE LAB L501.080 70-110 mg/dL High BEDSIDE GLU 197 Result Comment: MANAGEMENT OF PATIENT CARE PER NURSING PROTOCOL Performed By: #### L501.080 #### [facility] Point of Care [address] [place] [address] BEDSIDE GLUCOSE Collected: 04/30/2017 Status: F Source: RACHANA 4:03 PM [facility] REPOSITORY TYPE CODE TESTS RESULT OUT OF REFERENCE UNITS RANGE LAB L501.080 70-110 mg/dL High BEDSIDE GLU 196 Result Comment: MANAGEMENT OF PATIENT CARE PER NURSING PROTOCOL Performed By: #### L501.080 #### [facility] Point of Care [address] [place] [address] BEDSIDE GLUCOSE Collected: 04/30/2017 Status: F Source: RACHANA 11:04 AM [facility] REPOSITORY TYPE CODE TESTS RESULT OUT OF REFERENCE UNITS RANGE LAB L501.080 70-110 mg/dL High BEDSIDE GLU 212 Result Comment: MANAGEMENT OF PATIENT CARE PER NURSING PROTOCOL Performed By: #### L501.080 #### [facility] Point of Care [address] [place] [address] DISCHARGE INSTRUCTION Observed: 04/30/2017 Status: F Source: RACHANA 10:38 AM [facility] REPOSITORY [facility] Medical Records Department [address] [place] [address] Instructions for Home/Discharge Instructions 04/30/17 1035 MR#: [id number] Acct: [id number] Name: COLLEEN MILIAN Rep #: [id number] : 1975 41 From: Stella Castanon PCP: [...] #20 capsule 02/24/16 Fluticasone 0.05% [Flonase Nasal [place]] 1 spray NASAL DAILY 05/01/16 Albuterol Inhaler [...] instructions. Please Follow Up With: Melissa Bragg NP-C When: Please contact office to establish care. Proposed Discharge Date: 04/30/17 04/30/17 1038 <Electronically signed by Stella Castanon > Date Stella Castanon CC: Ephraim Tai D.O.; Timmy Park MD BEDSIDE GLUCOSE Collected: 04/30/2017 Status: F Source: RACHANA 6:18 AM [facility] REPOSITORY TYPE CODE TESTS RESULT OUT OF REFERENCE UNITS RANGE LAB L501.080 70-110 mg/dL High BEDSIDE GLU 235 Result Comment: MANAGEMENT OF PATIENT CARE PER NURSING PROTOCOL Performed By: #### L501.080 #### [facility] Point of Care [address] [facility] [address] [place], [place] [address] CBC-COMPLETE BLOOD CNT Collected: 04/30/2017 Status: F Source: RACHANA NO DIFF 5:40 AM [facility] REPOSITORY TYPE CODE TESTS RESULT OUT OF [...] MPV 11.0 Performed By: #### L100.0500 #### [facility] [address] [facility] [place], [address] BASIC METABOLIC Collected: 04/30/2017 Status: F Source: KECHI PROFILE (BMP) 5:40 AM [facility] REPOSITORY TYPE CODE TESTS RESULT OUT OF [...] Normal 7 Performed By: #### L500.2500 #### [facility] [address] [facility] [place], [address] CHEST 1 VIEW Observed: 04/30/2017 Status: F Source: RACHANA (PORTABLE) 12:01 AM [facility] REPOSITORY [facility] Imaging Services [address] [place] [address] Chest 1 View (Portable) MR#: [id number] Acct: [id number] Name: COLLEEN MILIAN Rep #: [id number] : 1975 F 41 From: Saul Colon MD PCP: Timmy Park MD Status: ADM IN Study: Chest 1 View (Portable) Date of Exam: 04/30/17 Exam# [id number] Ordering Dr: Stella Castanon STUDY: X-RAY CHEST [...] Saul Colon MD at 9:10 EST Tel [phone], Service support , CC: Stella Castanon; Timmy Park MD Ext Js Developer: Signed HISTORY AND PHYSICAL Observed: 04/29/2017 Status: F Source: KECHI EXAM 11:19 PM [facility] REPOSITORY [facility] Medical Records Department [address] [place] [address] History and Physical 04/27/17 1708 MR#: [id number] Acct: [id number] Name: MILIANCOLLEEN K Rep #: [id number] : 1975 41 From: Roberto Holden MD PCP: Timmy Park MD Status: ADM IN [place] [facility] [id number] History and Physical Date of Admission: 04/28/17 [...] of right orbital floor blowout fracture, sequela (ASI93-Q98.31xS) 2) Dx of Deviated nasal septum (MUT73-D20.2) (ICD-470) 3) Dx of internal nasal valve stenosis (QVH58-D00.89) (ICD-478.19) 4) Dx of Difficulty breathing (QVK17-Q99.00) (ICD-786.09) 5) Dx of nasal airway obstruction (DMS22-K04.8) (ICD-519.8) Risk Factors: Smoked Tobacco Use: Current [...] is septal deviation to the right side. Clarke maneuver is positive suggesting internal nasal valve [...] complex nasal reconstruction with placement of cartilage ordnance mechanic grafts to help increase the internal nasal [...] were included in a form from the [place] [employer]. Patient is aware that she will have a dorsal nasal splint for a few weeks and nasal packing for a few days. Encouraged the patient to stop smoking as it may have deleterious effects on wound healing. 04/29/17 2319 <Electronically signed by Roberto Holden MD> Date Roberto Holden MD Cosign Signature: Date (if applicable) CC: Roberto Holden MD; Timmy Park MD Signed BEDSIDE GLUCOSE Collected: 04/29/2017 Status: F Source: RACHANA 10:35 PM [facility] REPOSITORY TYPE CODE TESTS RESULT OUT OF REFERENCE UNITS RANGE LAB L501.080 70-110 mg/dL High BEDSIDE GLU 301 Result Comment: MANAGEMENT OF PATIENT CARE PER NURSING PROTOCOL Performed By: #### L501.080 #### [facility] Point of Care [address] [place] [address] BEDSIDE GLUCOSE Collected: 04/29/2017 Status: F Source: RACHANA 5:10 PM [facility] REPOSITORY TYPE CODE TESTS RESULT OUT OF REFERENCE UNITS RANGE LAB L501.080 70-110 mg/dL High BEDSIDE GLU 304 Result Comment: MANAGEMENT OF PATIENT CARE PER NURSING PROTOCOL Performed By: #### L501.080 #### [facility] Point of Care [address] [facility] [address] [place] [address] CONSULTATION Observed: 04/29/2017 Status: F Source: RACHANA 2:04 PM [facility] REPOSITORY [facility] Medical Records Department [address] [place] [address] Consultation 04/29/17 0703 MR#: [id number] Acct: [id number] Name: COLLEEN MILIAN Rep #: [id number] : 1975 41 From: Ephraim Tai DO PCP: Timmy Park MD Status: ADM IN Y [facility] for Consult Date of Consultation: 04/29/17 [...] Ranitidine [Zantac] 150 mg PO BID PRN 10/03/14 Epinephrine [Epi Pen] 0.3 mg IM X1 PRN 10/31/15 Sumatriptan Succinate [Imitrex] 50 mg PO .X1 PRN PRN 10/31/15 Surgical History: - - Septoplasty with submucous resection, repair of internal nasal vestibular stenosis with placement of bilateral cartilage ordnance mechanic grafts from the nasal septum, cholecystectomy, 3 and 3 C-sections, open reduction right orbital floor blowout fracture using combined approach with periorbital and transantral with titanium placement, mesh reconstruction. Psychiatric History: Anxiety, Depression COMPUTER CONSULTANT History: No pertinent COMPUTER CONSULTANT history Lives: Spouse/ Significant Other Smoking Status: [...] as tolerated. This note was generated with [employer] software. It may contain incorrect words, spelling, and punctuation that were not noted in checking the note before signing. Code Visit Inpatient E AND M: [id number] Init Hosp L3 04/29/17 1404 <Electronically signed by Ephraim Tai DO> Date Ephraim Tai DO Cosigner Signature (if applicable): Date CC: Ephraim Tai D.O.; Timmy Park MD Signed BEDSIDE GLUCOSE Collected: 04/29/2017 Status: F Source: RACHANA 11:51 AM [facility] REPOSITORY TYPE CODE TESTS RESULT OUT OF REFERENCE UNITS RANGE LAB L501.080 70-110 mg/dL High BEDSIDE GLU 313 Result Comment: MANAGEMENT OF PATIENT CARE PER NURSING PROTOCOL Performed By: #### L501.080 #### [facility] [address] [place], [place] [address] BEDSIDE GLUCOSE Collected: 04/29/2017 Status: F Source: RACHANA 5:59 AM [facility] REPOSITORY TYPE CODE TESTS RESULT OUT OF REFERENCE UNITS RANGE LAB L501.080 70-110 mg/dL High BEDSIDE GLU 279 Result Comment: MANAGEMENT OF PATIENT CARE PER NURSING PROTOCOL Performed By: #### L501.080 #### [facility] Laboratory Point of Care [address] [place] [address] CBC-COMPLETE BLOOD CNT Collected: 04/29/2017 Status: F Source: RACHANA NO DIFF 4:00 AM [facility] REPOSITORY Order Comment: SPECIMEN OBTAINED FROM LINE [...] MPV 11.4 Performed By: #### L100.0500 #### [facility] [place], [place], [address] BASIC METABOLIC Collected: 04/29/2017 Status: F Source: RACHANA PROFILE (BMP) 4:00 AM [facility] REPOSITORY Order Comment: SPECIMEN OBTAINED FROM LINE [...] GAP 10 Performed By: #### L500.2500 #### [facility] [address] [place], [address] PREALBUMIN Collected: 04/29/2017 Status: F Source: KECHI 4:00 AM [facility] REPOSITORY Order Comment: SPECIMEN OBTAINED FROM LINE DRAW TYPE CODE TESTS RESULT OUT OF RANGE REFERENCE UNITS LAB L506.0500 20.0-40.0 mg/dL Normal PREALBUMIN 27.0 Performed By: #### L506.0500 #### [facility] [address] [place], [address] BEDSIDE GLUCOSE Collected: 04/29/2017 Status: F Source: KECHI 1:26 AM [facility] REPOSITORY TYPE CODE TESTS RESULT OUT OF REFERENCE UNITS RANGE LAB L501.080 70-110 mg/dL High BEDSIDE GLU 297 Result Comment: MANAGEMENT OF PATIENT CARE PER NURSING PROTOCOL Performed By: #### L501.080 #### [facility] Laboratory Point of Care [address] [facility] [place] [address] CHEST 1 VIEW Observed: 04/29/2017 Status: F Source: RACHANA (PORTABLE) 12:00 AM [facility] REPOSITORY [facility] Imaging Services [address] [place] [address] Chest 1 View (Portable) MR#: [id number] Acct: [id number] Name: COLLEEN MILIAN Rep #: [id number] : 1975 F 41 From: Gabe Lofton MD PCP: Timmy Park MD Status: REG [facility] Study: Chest 1 View (Portable) Date of Exam: 04/29/17 Exam# [id number] Ordering Dr: Stella Castanon STUDY: X-RAY CHEST [...] , CC: Stella Castanon; Timmy Park MD Ext Js Developer: Signed TROPONIN-I Collected: 04/28/2017 Status: F Source: RACHANA 10:35 PM [facility] REPOSITORY Order Comment: Has pt arrived? Y 'TROP' Serial specimen #1, #2, #3, or #4: 2 TYPE CODE TESTS RESULT OUT OF RANGE REFERENCE UNITS LAB L501.4010 <0.06 ng/mL Normal < 0.02 TROPONIN-I Result Comment: TROPONIN-I EXPECTED VALUES <0.05 NEGATIVE 0.06 - 0.59 AT RISK OF NE > OR = 0.60 SUGGEST NE Performed By: #### L501.4010 #### [facility] [place], [address] BLOOD GASES BY CPS Collected: 04/28/2017 Status: F Source: RACHANA 9:13 PM [facility] REPOSITORY TYPE CODE TESTS RESULT OUT OF RANGE REFERENCE UNITS LAB L9000.9990 Normal BLD GAS TYPE ART LAB L9001.1000 Normal SITE R Radial LAB L9001.1048 Normal Mode A-C LAB L9001.1050 O2 Normal Delivery Dev Vent LAB L9001.1065 Vt Normal 450 LAB L9001.1070 RR Normal 16 LAB L9001.1074 Normal FI02 50 LAB L9001.1076 Normal PEEP 5 LAB L9001.1104 Normal Results To HOSP MD LAB L9001.1110 7.35-7.45 pH Normal - I-STAT [...] ISTAT 100 Performed By: #### L9000.0800 #### [facility] Laboratory Point of Care [address] [facility] [place] [address] BEDSIDE GLUCOSE Collected: 04/28/2017 Status: F Source: RACHANA 8:40 PM [facility] REPOSITORY TYPE CODE TESTS RESULT OUT OF REFERENCE UNITS RANGE LAB L501.080 70-110 mg/dL High BEDSIDE GLU 339 Result Comment: MANAGEMENT OF PATIENT CARE PER NURSING PROTOCOL Performed By: #### L501.080 #### [facility] Laboratory Point of Care [address] [place] [address] CHEST 1 VIEW Observed: 04/28/2017 Status: F Source: RACHANA (PORTABLE) 6:45 PM [facility] REPOSITORY [facility] Imaging Services [address] [place] [address] Chest 1 View (Portable) MR#: [id number] Acct: [id number] Name: COLLEEN MILIAN Joana Rep #: [id number] : 1975 F 41 From: Nader Lutz PCP: Timmy Park MD Status: REG [facility] Study: Chest 1 View (Portable) Date of Exam: 04/28/17 Exam# [id number] Ordering Dr: Stella Castanon STUDY: X-RAY CHEST [...] , CC: Stella Castanon; Timmy Park MD Ext Js Developer: Signed BLOOD GASES BY CPS Collected: 04/28/2017 Status: F Source: RACHANA 6:07 PM [facility] REPOSITORY TYPE CODE TESTS RESULT OUT OF [...] ISTAT 87 Performed By: #### L9000.0800 #### [facility] Point of Care [address] [place] [address] CONSULTATION Observed: 04/28/2017 Status: F Source: KECHI 5:44 PM [facility] REPOSITORY [facility] Medical Records Department [address] [facility] [place] [address] Consultation 04/28/17 1710 MR#: [id number] Acct: [id number] Name: COLLEEN MILIAN Rep #: [id number] : 1975 41 From: Stella Castanon PCP: Timmy Park MD Status: [facility] Y Location: [place] [address] Problem List (1) Allergic rhinitis Status: Chronic [...] complication status: with unspecified complications Diabetes mellitus care home insulin use: without care home use Qualified Code(s): E11.8 - Type 2 [...] paresthesias associated prompting scheduled presentation to the [facility] for planned intervention per Dr. Holden. Patient underwent septoplasty with submucous resection w/ repair of internal nasal 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 Following operative [...] vestibular stenosis with placement of bilateral cartilage ordnance mechanic grafts from the nasal septum, cholecystectomy, 3 and 3 C-sections, open reduction right orbital floor blowout fracture using combined approach with periorbital and transantral with titanium placement, mesh reconstruction. Psychiatric History: Anxiety, Depression COMPUTER CONSULTANT History: No pertinent COMPUTER CONSULTANT history Lives: Spouse/ Significant Other Smoking Status: [...] paresthesias associated prompting scheduled presentation to the [facility] for planned intervention per Dr. Holden. (1) [...] 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 Post-operatively noted [...] ordered. Code Visit Office Visits / Consults: [id number] IP Consult L5 04/28/17 1743 <Electronically signed by Stella Castanon > Date Stella Castanon Cosigner Signature (if applicable): Date CC: Timmy Park MD Signed CBC W/DIFF, AUTOMATED Collected: 04/28/2017 Status: F Source: RACHANA 5:10 PM [facility] REPOSITORY TYPE CODE TESTS RESULT OUT OF [...] Lymph 4.45 Performed By: #### L100.0100 #### [facility] [address] [place], [place], [address] BASIC METABOLIC Collected: 04/28/2017 Status: F Source: KECHI PROFILE (BMP) 5:10 PM [facility] REPOSITORY Order Comment: 'TROP' Serial specimen #1, [...] GAP Performed By: #### L500.2500, L501.4010 #### [facility] [address] [facility] [place], [address] TROPONIN-I Collected: 04/28/2017 Status: F Source: KECHI 5:10 PM [facility] REPOSITORY Order Comment: 'TROP' Serial specimen #1, #2, #3, or #4: 1 TYPE CODE TESTS RESULT OUT OF RANGE REFERENCE UNITS LAB L501.4010 <0.06 ng/mL Normal < 0.02 TROPONIN-I Result Comment: TROPONIN-I EXPECTED VALUES <0.05 NEGATIVE 0.06 - 0.59 AT RISK OF NE > OR = 0.60 SUGGEST NE Performed By: #### L500.2500, L501.4010 #### [facility] [address] [facility] [place], [address] MAGNESIUM Collected: 04/28/2017 Status: F Source: KECHI 5:10 PM [facility] REPOSITORY TYPE CODE TESTS RESULT OUT OF RANGE REFERENCE UNITS LAB L501.5200 1.6-2.6 mg/dL Normal MG 1.9 Result Comment: Please note revised Magnesium reference range effective 2017. Slight Hemolysis, Result may be falsely increased. Performed By: #### L501.5200 #### [facility] [address] [facility] [place], [address] BLOOD GASES BY CPS Collected: 04/28/2017 Status: F Source: KECHI 5:09 PM [facility] REPOSITORY TYPE CODE TESTS RESULT OUT OF [...] ISTAT 100 Performed By: #### L9000.0800 #### [facility] Point of Care [address] [place] [address] BEDSIDE GLUCOSE Collected: 04/28/2017 Status: F Source: KECHI 4:50 PM [facility] REPOSITORY TYPE CODE TESTS RESULT OUT OF REFERENCE UNITS RANGE LAB L501.080 70-110 mg/dL High BEDSIDE GLU 351 Result Comment: MANAGEMENT OF PATIENT CARE PER NURSING PROTOCOL Performed By: #### L501.080 #### [facility] Point of Care [address] [place] [address] BEDSIDE GLUCOSE Collected: 04/28/2017 Status: F Source: RACHANA 4:35 PM [facility] REPOSITORY TYPE CODE TESTS RESULT OUT OF REFERENCE UNITS RANGE LAB L501.080 70-110 mg/dL High BEDSIDE GLU 323 Result Comment: MANAGEMENT OF PATIENT CARE PER NURSING PROTOCOL Performed By: #### L501.080 #### [facility] Point of Care [address] [place] [address] SEPTUM Observed: 04/28/2017 Status: F Source: RACHANA 10:25 AM [facility] REPOSITORY Patient: COLLEEN MILIAN : 1975 (41/F) Acct Num: [id number] Phys: Adina NGUYEN,Roberto Unit Num: [id number] Loc: MS3 MI545-0 Specimen: [id number] Received: 04/29/171040 Spec Type: SEPTUM TISSUES TISSUES: Nasal septum, NOS GROSS DESCRIPTION Received in fixative is one container labeled with the patient's name and designated septal cartilage. The specimen consists of multiple fragments of cartilage and bone that in aggregate measure 3 x 2.5 x 0.3 cm. The entire specimen is submitted in one cassette after decalcification. / SJ:cameron 04/29/17 TC:5 CPT: 77319, 14166 HEADER OPERATION: Septoplasty, submucous resection, placement of cartilage PRE-OP DIAGNOSIS: Nasal airway obstruction with difficulty breathing; internal nasal valve stenosis; deviated nasal septum TISSUE SUBMITTED: Septal cartilage MICROSCOPIC DESCRIPTION Slides are reviewed. MICROSCOPIC DIAGNOSIS Nasal septal cartilage, septoplasty: Fragments of hyaline cartilage and bone with no significant pathologic change ( clinically deviated septum). AM:cameron 05/01/17 Signed Billy Leora 05/01/17 <signature on file> Performed By: #### PSEP #### [facility] [address] [place] [place], [address] CBC-COMPLETE BLOOD CNT Collected: 04/28/2017 Status: F Source: KECHI NO DIFF 9:34 [facility] REPOSITORY TYPE CODE TESTS RESULT OUT OF [...] Performed By: #### L100.0500, L500.2500, L500.3400 #### [facility] [address] [place], [place], [address] BASIC METABOLIC Collected: 04/28/2017 Status: F Source: RACHANA PROFILE (BMP) 9:34 AM [facility] REPOSITORY TYPE CODE TESTS RESULT OUT OF [...] Performed By: #### L100.0500, L500.2500, L500.3400 #### [facility] [address] [place], [address] LIVER PROFILE Collected: 04/28/2017 Status: F Source: RACHANA 9:34 AM [facility] REPOSITORY TYPE CODE TESTS RESULT OUT OF [...] Performed By: #### L100.0500, L500.2500, L500.3400 #### [facility] [address] [place], [address] PROTHROMBIN TIME W/INR Collected: 04/28/2017 Status: F Source: KECHI 9:34 AM [facility] REPOSITORY TYPE CODE TESTS RESULT OUT OF RANGE REFERENCE UNITS LAB L300.4150 11.7-14.9 SECONDS Low PROTIME 11.5 LAB L300.4200 Normal INR 0.9 Performed By: #### L300.3900, L300.4310 #### [facility] [address] [place], [place], [address] PARTIAL THROMBOPLAST Collected: 04/28/2017 Status: F Source: KECHI TIME 9:34 AM [facility] REPOSITORY TYPE CODE TESTS RESULT OUT OF RANGE REFERENCE UNITS LAB L300.4310 24.1-36.2 Seconds Normal PTT 27.9 Performed By: #### L300.3900, L300.4310 #### [facility] [address] [place], [address] HEMOGLOBIN A1C Collected: 04/28/2017 Status: F Source: KECHI 9:34 AM [facility] REPOSITORY TYPE CODE TESTS RESULT OUT OF RANGE REFERENCE UNITS LAB L501.9985 4.2-6.3 % High HGB A1C 8.5 Performed By: #### L501.9985 #### [facility] [address] [place], [address] ALLERGIES ALLERGIES DATE TYPE / CODE NAME / CODE REACTION SEVERITY SOURCE Drug guaifenesin/F006 Nausea Unknown [place] 9 Allergy/263647716( 018568(RXNORM) [facility] Repository Drug naproxen/H048068 Unknown Unknown [place] 9 Allergy/740884871( 380(RXNORM) [facility] Hospital Repository Drug amoxicillin/F006 Upset Stomach Unknown [place] Allergy/656627895( 468434(RXNORM) [facility] Hospital Repository Drug venom-honey Swelling Unknown [place] 9 Allergy/686725534( bee/F130601883(R [facility]) XNORM) Hospital Repository Drug bee venom Angioedema Unknown [place] 9 Allergy/049776691( protein (honey [facility]) bee)/Y249934193( Hospital RXNORM) Repository Drug mold/D125437992( Itching Unknown [place] 9 Allergy/214672744( RXNORM) [facility] SNOMED CT) Hospital Repository DRUG AMOXICILLIN GI UPSET [place] 8 INGREDI/971990566( Clinic Main SNOMED [facility]) [place] Repository DRUG NAPROXEN GI UPSET [place] 4 INGREDI/992105339( [facility] Main SNOMED [facility]) [place] Repository Miscellaneous OTHER [place] 6 Allergy/504855325( Clinic Main SNOMED [facility]) [place] Repository Environ/495474514( DUST [place] [address]) Clinic Main [place] Repository Environ/497974921( DUST MITES [place] [address]) Clinic Main [place] Repository Environ/500795111( POLLEN [place] [address]) Clinic Main [place] Repository NG/753743566(SNOME AMOXICILLIN [facility] Repository NG/653986772(SNOME OTHER [facility]) [facility] System Repository NG/856081420(SNOME DUST [facility]) [facility] System Repository NG/542926404(SNOME DUST MITES [facility]) [facility] System Repository NG/480909997(SNOME NAPROXEN [facility]) Health System Repository NG/773813629(SNOME POLLEN [facility]) Health System Repository Drug NAPROXEN/4360709 Moderate [place] Allergy/162417022( 0(RXNORM) ([facility]) Modifier) Hospital (Qualifier Repository Value) Drug AMOXICILLIN/0000 Moderate [place] Allergy/923795186( 0376(RXNORM) ([facility]) Modifier) Hospital (Qualifier Repository Value) Drug ROBITUSSIN Moderate [place] Allergy/301203080( COUGH+CHEST ([facility]) CONGESTION DM Modifier) Hospital MAX/78341792(RXN (Qualifier Repository ORM) Value) ENCOUNTERS ENCOUNTERS ADMIT/DISCHARGE ACCOUNT NUMBER ADMITTING ENCOUNTER LOCATION SOURCE CLASS 04/23/2018/04/23/19 [id number] Emergency [address] ding:ED Repository 04/21/2018/04/21/19 [id number] Ambulatory [address] ding:PT Repository 04/21/2018/04/21/19 [id number] Ambulatory BMSBuilding: [place] 19 BMS.[facility] Repository 04/17/2018/04/17/19 [id number] Emergency [address] ding:ED Repository 04/16/2018/04/16/19 [id number] Ambulatory [address] Repository 04/16/2018/04/20/19 [id number] Ambulatory [address] Repository 04/01/2018/04/01/19 [id number] Ambulatory BMSBuilding: [place] 19 [facility] Repository 03/25/2018/03/25/20 [id number] Ambulatory BMSBuilding: [place] 18 BMS.formerly [facility] Repository 03/18/2018 [id number] Ambulatory [facility] ding:LABSPEC Repository 03/18/2018/03/18/20 [id number] Ambulatory BMSBuilding: [place] 18 B[facility] Repository 03/17/2018/03/17/20 [id number] Emergency [address] ding:ED Repository 03/12/2018/03/15/20 [id number] Ambulatory [address] Repository 03/09/2018/03/09/20 [id number] Emergency [address] ding:ED Repository 03/04/2018/03/04/20 [id number] Ambulatory BMSBuilding: [place] 18 BMS.[facility] Repository 03/03/2018/03/03/20 [id number] Ambulatory [address] Repository 03/03/2018/03/03/20 [id number] Ambulatory [address] MEDICAL Repository CENTERBuildi ng:BAR 02/25/2018/02/26/20 [id number] Ambulatory BMSBuilding: [place] 18 B[facility] Repository 02/17/2018 [id number] Ambulatory BMSBuilding: [place] BMS.Critical access hospital Repository 02/17/2018 [id number] [facility] [place] [facility] 02/16/2018 [id number] Ambulatory BMSBuilding: [place] BMS.Critical access hospital Repository 02/16/2018/02/18/20 [id number] Ambulatory [address] ding:SDCRoom Repository : MS309 02/16/2018 [id number] Ambulatory BMSBuilding: [place] [facility] Repository 02/16/2018 [id number] Ambulatory BMSBuilding: [place] BMS.CF.[facility] Repository 02/10/2018/02/11/20 [id number] Ambulatory [address] Repository 02/10/2018/02/11/20 [id number] Ambulatory [address] MEDICAL Repository CENTERBuildi ng:AKXRB 02/10/2018 [id number] Ambulatory [facility] Repository 02/10/2018/02/11/20 [id number] Ambulatory IDR[place] [address] MEDICAL Repository CENTERBuildi ng:AKLBB 02/10/2018/02/11/20 [id number] Ambulatory [address] Repository 02/10/2018/02/11/20 [id number] Ambulatory IDR[place] [address] MEDICAL Repository CENTERBuildi ng:BARH 02/08/2018/02/09/20 [id number] Ambulatory BMSBuilding: [place] 18 BMS.formerly [facility] Repository 02/01/2018/02/03/20 [id number] Ambulatory [address] Repository 01/13/2018/01/15/20 [id number] Ambulatory [address] Repository 01/12/2018/01/13/20 [id number] Emergency [address] ding:ED Repository 01/10/2018/01/11/20 [id number] Emergency [address] ding:ED Repository 01/04/2018/01/06/20 [id number] Ambulatory [address] Repository 01/02/2018/01/03/20 [id number] Emergency [address] ding:ED Repository 12/30/2017/12/31/19 [id number] Ambulatory [address] Repository 12/30/2017/12/31/19 [id number] Ambulatory [address] Repository 12/28/2017/12/30/19 [id number] Ambulatory [address] Repository 12/17/2017/12/18/19 [id number] Ambulatory BMSBuilding: [place] 18 [facility] Repository 12/04/2017/12/08/19 [id number] Ambulatory [address] Repository 11/26/2017 [id number] Ambulatory [facility] ding:CT Repository 11/15/2017/11/16/19 [id number] Emergency [address] ding:ED Repository 11/12/2017 [id number] Ambulatory [facility] ding:MRI Repository 11/11/2017/11/12/19 [id number] Ambulatory [address] Repository 11/05/2017/11/06/19 [id number] Ambulatory BMSBuilding: [place] 18 B[facility] Repository 10/17/2017/10/18/19 [id number] Emergency [address] ding:ED Repository 10/13/2017/10/14/[id number] ROXANNA Emergency [address] [place] [address] ÁLVARO Shabazz Room: ERBed: [facility] Repository 10/10/2017/10/11/19 [id number] Emergency [place] ding:ED Repository 10/04/2017/10/05/19 [id number] Emergency [place] ding:ED Repository 09/15/2017/09/17/19 [id number] Ambulatory [address] Repository 08/17/2017/08/18/19 [id number] Ambulatory [place] ding:PT Repository 08/14/2017/08/15/19 [id number] Ambulatory [address] Repository 08/14/2017/08/18/19 [id number] Ambulatory [address] Repository 08/08/2017 [id number] Ambulatory [facility] Repository 07/17/2017/07/19/19 [id number] Emergency [place] ding:ED Repository 07/15/2017/07/16/19 [id number] Ambulatory [address] [place] Repository 07/15/2017/07/17/19 [id number] Ambulatory [address] Repository 07/08/2017 [id number] Ambulatory [facility] ding:CT Repository 06/30/2017/07/01/19 [id number] Emergency [place] ding:ED Repository 06/30/2017/07/01/19 [id number] Ambulatory [address] [place] Repository 06/30/2017/07/01/19 [id number] Ambulatory [address] Repository 06/24/2017 [id number] Ambulatory [facility] ding:HPRAD Repository 06/24/2017/06/25/19 [id number] Ambulatory BMSBuilding: [place] 18 [facility] Repository 06/11/2017/06/12/19 [id number] Ambulatory BMSBuilding: [place] 18 [facility] Repository 06/03/2017/06/09/19 [id number] Ambulatory [address] Repository 06/02/2017/06/03/19 [id number] Ambulatory [address] Repository 05/27/2017/05/27/19 [id number] Ambulatory BMSBuilding: [place] 18 [facility] Repository 05/20/2017/05/22/19 [id number] Ambulatory [address] Repository 05/13/2017/05/13/19 [id number] Ambulatory BMSBuilding: [place] 18 [facility] Repository 05/04/2017/05/04/19 [id number] Ambulatory BMSBuilding: [place] 18 [facility] Repository 04/29/2017 [id number] Roberto Holden Ambulatory BMSBuilding: [place] BMS.CF.[facility] Repository 04/29/2017 [id number] Ambulatory BMSBuilding: [place] BMS.Critical access hospital Repository 04/28/2017/05/01/19 [id number] Roberto Holden Inpatient [place] ding:DM3Cqkj Repository : [place]650Ble: 1 04/28/2017 [id number] Roberto Holden Ambulatory BMSBuilding: [place] BMS.CF.[facility] Repository 04/28/2017 [id number] Roberto Holden Ambulatory BMSBuilding: [place] BMS.Critical access hospital Repository 04/28/2017 [id number] Roberto Holden Ambulatory BMSBuilding: [place] BMS.CF.[facility] Repository 04/28/2017 [id number] Roberto Holden Ambulatory BMSBuilding: [place] BMS.Critical access hospital Repository 04/28/2017 [id number] Roberto Holden Ambulatory BMSBuilding: [place] BMS.CF.[facility] Repository 04/28/2017 [id number] Roberto Holden Ambulatory BMSBuilding: [place] BMS.CF.[facility] Repository 04/28/2017/05/01/19 [id number] Ambulatory BMSBuilding: [place] 18 [facility] Repository 04/28/2017 [id number] Ambulatory BMSBuilding: [place] BMS.Critical access hospital Repository PAYERS PAYERS ENCOUNTER GUARANTOR PAYER SUBSCRIBER SOURCE 04/23/2018 COLLEEN K Primary COLLEEN K Rachana [address] Insurance:ANTHEM MILLERDOB: [facility] [place] SEN[place] [id number] Hospital [address]Joq: (330) ADVANTAPolicy Number: Repository [phone] () [id number] Date:4076-89-46LM[address] [address]WF: 04/23/2018 Secondary COLLEEN K Rachana Insurance:MYCARE CRSC MILLERDOB: Community *IN [facility] [id number] Hospital Number: Repository [id number] Date:3548-93-81TBSH CLAIMS DEPTPO [address] [place] [address]AB: 04/23/2018 Tertiary NOT GIVENUNK Rachana Insurance:SELF PAY [facility] Hospital Number: Effective Repository Date:2018-04-23 04/21/2018 COLLEEN K Primary COLLEEN K Rachana [address] Insurance:ANTHEM MILLERDOB: [place] [address] SEN[place] [id number] Hospital [address]Pvt: (330) ADVANTAPolicy Number: Repository [phone] () [id number] Date:1749-89-42MR[address] [address]LT: 04/21/2018 Secondary COLLEEN K [place] Insurance:MYCARE CRSC MILLERDOB: Community *IN [facility] [id number] Hospital Number: Repository [id number] Date:3823-71-82WRQD CLAIMS DEPTPO [address] [place] [address]HC: 04/21/2018 Tertiary NOT GIVENUNK [place] Insurance:SELF PAY [facility] Hospital Number: Effective Repository Date:2018-02-08 04/21/2018 COLLEEN K Primary COLLEEN K Rachana [address] Insurance:ANTHEM MILLERDOB: [facility] [place] [id number] Hospital [address]Zui: (330) ADVANTAPolicy Number: Repository [phone] () [id number] Date:8216-83-44VG[address] [place] [address]FM: 04/21/2018 Secondary COLLEEN K [place] Insurance:MYCARE CRSC MILLERDOB: Community *IN [facility] [id number] Hospital Number: Repository [id number] Date:5115-64-44QOFW CLAIMS DE[address], [place] [address]AP: 04/21/2018 Tertiary NOT GIVENUNK [place] Insurance:SELF PAY [facility] Hospital Number: Effective Repository Date:2018-04-21 04/17/2018 COLLEEN K Primary COLLEEN K Rachana [address] Insurance:ANTHEM MILLERDOB: [place] [address] [id number] Hospital [address]15[address]Hco: (330) ADVANTAPolicy Number: Repository [phone] () [id number] Date:4306-42-37AS [facility] [id number] [place] [address]JJ: 04/17/2018 Secondary COLLEEN K Rachana Insurance:MYCARE CRSC MILLERDOB: Community *IN [facility] [id number] Hospital Number: Repository [id number] Date:7371-54-89IWQG CLAIMS DEPTPO [address] [place] [address]AZ: 04/17/2018 Tertiary NOT GIVENUNK [place] Insurance:SELF PAY [facility] Hospital Number: Effective Repository Date:2018-04-17 04/01/2018 COLLEEN Bernard Primary COLLEEN K Rachana [address] Insurance:ANTHEM MILLERDOB: [place] [address] [id number] Hospital [address]Kvl: (330) ADVANTAPolicy Number: Repository [phone] () [id number] Date:3923-87-18IG [id number] [place] [address] 213[address]CS: 04/01/2018 Secondary COLLEEN K Rachana Insurance:MYCARE CRSC MILLERDOB: Community *IN [facility] [id number] Hospital Number: Repository [id number] Date:7829-53-19CXZK CLAIMS DEPTPO [address] [place] [address]VY: 04/01/2018 Tertiary NOT GIVENUNK Rachana Insurance:SELF PAY [facility] Hospital Number: Effective Repository Date:2018-03-29 03/25/2018 COLLEEN Bernard Primary COLLEEN Reich [address] Insurance:ANTHEBENEZER MILLERDOB: [place] [address] [id number] Hospital [address]Knq: (330) ADVANTAPolicy Number: Repository [phone] () [id number] Date:0671-83-10CK [address] [address]QI: 03/25/2018 Secondary COLLEEN K [place] Insurance:MYCARE CRSC MILLERDOB: Community *IN [facility] [id number] Hospital Number: Repository [id number] Date:2925-29-36LYON CLAIMS DEPTPO [address] [place] [address]AP: 03/25/2018 Tertiary NOT GIVENUNK Rachana Insurance:SELF PAY [facility] Hospital Number: Effective Repository Date:2018-03-24 03/18/2018 COLLEEN Bernard Primary COLLEEN Bernard [place] [address] Insurance:ANTHEBENEZER MILLERDOB: [place] [address] [id number] Hospital [address]Ydt: (330) ADVANTAPolicy Number: Repository [phone] () [id number] Date:8186-55-29QZ[address] [address]OQ: 03/18/2018 Secondary COLLEEN K [place] Insurance:MYCARE CRSC MILLERDOB: Community *IN [facility] [id number] Hospital Number: Repository [id number] Date:5728-00-93YGCO CLAIMS DEPTPO [address] [place] [address]FK: 03/18/2018 Tertiary NOT GIVENUNK Rachana Insurance:SELF PAY [facility] Hospital Number: Effective Repository Date:2018-03-18 03/18/2018 COLLEEN Bernard Primary COLLEEN Bernard [place] [address] Insurance:ANTHEM MILLERDOB: [place] [address] [id number] Hospital [address]Evd: (330) ADVANTAPolicy Number: Repository [phone] () [id number] Date:6465-71-79ZU[address] [address]DE: 03/18/2018 Secondary COLLEEN K Rachana Insurance:MYCARE CRSC MILLERDOB: Community *IN [facility] [id number] Hospital Number: Repository [id number] Date:2019-05-57AKVH CLAIMS DEPTPO [address] [place] [address]HR: 03/18/2018 Tertiary NOT GIVENUNK [place] Insurance:SELF PAY [facility] Hospital Number: Effective Repository Date:2018-03-18 03/17/2018 COLLEEN K Primary COLLEEN Bernard [place] [address] Insurance:ANTHEM MILLERDOB: [facility] [place] [id number] Hospital 86[address]Nuw: (330) ADVANTAPolicy Number: Repository [phone] () [id number] Date:2996-35-44WF[address] [address]XL: 03/17/2018 Secondary COLLEEN K [place] Insurance:MYCARE CRSC MILLERDOB: Community *IN [facility] [id number] Hospital Number: Repository [id number] Date:6956-02-50ZNBG CLAIMS DEPTPO [address] [place] [address]AO: 03/17/2018 Tertiary NOT GIVENUNK Rachana Insurance:SELF PAY [facility] Hospital Number: Effective Repository Date:2018-03-17 03/09/2018 COLLEEN Bernard Primary COLLEEN Bernard [place] [address] Insurance:ANTHEM MILLERDOB: [place] [address] [id number] Hospital 84169Rdu: (330) ADVANTAPolicy Number: Repository [phone] () [id number] Date:9293-02-97WO [address], [place] [address]SL: 03/09/2018 Secondary COLLEENCRYSTAL Reich Insurance:[facility] MILLERDOB: Community *IN [facility] [id number] Hospital Number: Repository [id number] Date:2549-73-41TSLV CLAIMS DEPTPO [address] [place] [address]LT: 03/09/2018 Tertiary NOT GIVENUNK [place] Insurance:SELF PAY [facility] Hospital Number: Effective Repository Date:2018-03-09 03/04/2018 COLLEEN Bernard Primary COLLEEN Joana Rachana [address] Insurance:ANTHEM MILLERDOB: [place] [address] [id number] [facility] 43802Cbh: 330) ADVANTAPolicy Number: Repository [phone] () [id number] Date:4860-27-04XU [id number] [place] [address]ZJ: 03/04/2018 Secondary NOT GIVENUNK Rachana Insurance:SELF PAY [facility] Hospital Number: Effective Repository Date:2018-03-04 03/03/2018 COLLEEN Bernard Primary COLLEEN K [facility] MILLERDOB: Insurance:ANTHEM MILLERDOB: [facility] [id number] MEDIBLUE DUAL [id number] Repository [address] [place] [address]Wwh: MEDICAREPolicy Number: [id number] () Date: 03/03/2018 Secondary COLLEEN [facility] Insurance:CARESOURCE MILLERDOB: [facility] MEDICAIDPolicy Number: [id number] Repository [id number] Date: 02/25/2018 COLLEEN Bernard Primary COLLEEN Bernard Rachana [address] Insurance:ANTHEM MILLERDOB: Community [address] [id number] [facility] 26260Ufj: 330) ADVANTAPolicy Number: Repository [phone] () [id number] Date:9410-44-39YV [address] [place] [address] 70[address]AK: 02/25/2018 Secondary NOT GIVENUNK [place] Insurance:SELF PAY [facility] Hospital Number: Effective Repository Date:2018-02-25 02/17/2018 COLLEEN Bernard Primary COLLEEN Bernard [place] [address] Insurance:ANTHEM MILLERDOB: [place] [address] [id number] Hospital 866[address]Sdk: (330) ADVANTAPolicy Number: Repository [phone] () [id number] Date:2695-67-40DC [facility] [id number] [place] [address] 28028XD: 02/17/2018 Secondary NOT GIVENUNK Rachana Insurance:SELF PAY [facility] Hospital Number: Effective Repository Date:2018-02-17 02/17/2018 COLLEEN K Primary COLLEEN Bernard [place] [address] Insurance:ANTHEM MILLERDOB: [place] [address] [id number] Hospital 17750Ntu: (330) ADVANTAPolicy Number: Repository [phone] () [id number] Date:4614-43-06VA [address] [address]DH: 02/17/2018 Secondary NOT GIVENUNK [place] Insurance:SELF PAY [facility] Number: Effective Repository Date:2018-02-17 02/16/2018 COLLEEN K Primary COLLEEN Bernard [place] [address] Insurance:ANTHEM MILLERDOB: [place] [address] [id number] Hospital 88786Jva: (330) ADVANTAPolicy Number: Repository [phone] () [id number] Date:7043-82-10ES [address] [address]CG: 02/16/2018 Secondary NOT GIVENUNK [place] Insurance:SELF PAY [facility] Number: Effective Repository Date:2018-02-16 02/16/2018 COLLEEN Bernard Primary COLLEEN Bernard Rachana [address] Insurance:ANTHEM MILLERDOB: [place] [address] [id number] Hospital 01753Hwd: (330) ADVANTAPolicy Number: Repository [phone] () [id number] Date:6335-57-31JS [address] [address]YS: 02/16/2018 Secondary NOT GIVENUNK [place] Insurance:SELF PAY [facility] Number: Effective Repository Date:2018-01-08 02/16/2018 COLLEEN Bernard Primary COLLEEN K Rachana [address] Insurance:ANTHEM MILLERDOB: [place] [address] [id number] Hospital 12907Gjl: (330) ADVANTAPolicy Number: Repository [phone] () [id number] Date:7405-80-29HU[address] [address]NA: 02/16/2018 Secondary NOT GIVENUNK Rachana Insurance:SELF PAY [facility] Hospital Number: Effective Repository Date:2018-02-16 02/16/2018 COLLEEN Bernard Primary COLLEEN K Rachana [address] Insurance:ANTHEM MILLERDOB: [place] [address] [id number] Hospital 69043Pds: (330) ADVANTAPolicy Number: Repository [phone] () [id number] Date:4814-12-07XO [address] [address]EX: 02/16/2018 Secondary NOT GIVENUNK [place] Insurance:SELF PAY [facility] Hospital Number: Effective Repository Date:2018-02-16 02/10/2018 COLLEEN Bernard Primary COLLEEN [facility] MILLERDOB: Insurance:ANTHEM MILLERDOB: [facility] [id number] MEDIBLUE DUAL [id number] [address]ository [address] [address]Zql: MEDICAREPolicy Number: [id number] () Date: 02/10/2018 Secondary COLLEEN [facility] Insurance:CARESOREDDYE ENZOB: Health System MEDICAIDPolicy Number: [id number] Repository [id number] Date: 02/10/2018 COLLEEN Bernard Primary COLLEEN [facility] MILLERDOB: Insurance:ANTHEM MILLERDOB: [facility] [id number] MEDIBLUE DUAL [id number] [address]ository [address] [address]Jro: MEDICAREPolicy Number: [id number] () Date: 02/10/2018 Secondary COLLEEN [facility] Insurance:CARESOURCE MILLERDOB: [facility] System MEDICAIDPolicy Number: [id number] Repository [id number] Date: 02/10/2018 COLLEEN Bernard Primary COLLEEN [facility] MILLERDOB: Insurance:ANTHEM MILLERDOB: [facility] [id number] MEDIBLUE DUAL [id number] [address]ository [address] [address]Nyu: MEDICAREPolicy Number: [id number] () Date: 02/10/2018 Secondary COLLEEN [facility] Insurance:CARESOURCE MILLERDOB: [facility] MEDICAIDPolicy Number: [id number] Repository [id number] Date: 02/08/2018 COLLEEN Bernard Primary COLLEEN [address] Insurance:MYCARE CRSC MILLERDOB: [facility] [place] [facility] [id number] Hospital 65028Ijl: (330) Number: Repository [phone] () [id number] Date:6402-61-81INXR CLAIMS DEPTPO [address] [place] [address]WC: 02/08/2018 Secondary NOT GIVENUNK [place] Insurance:SELF PAY [facility] Number: Effective Repository Date:2018-02-08 01/12/2018 COLLEEN Bernard Primary COLLEEN [address] Insurance:MYCARE CRSC MILLERDOB: [place] [address] [facility] [id number] [facility] 25850Orr: (330) Number: Repository [phone] () [id number] Date:8350-42-45AEDN CLAIMS DEPTPO [address] [place] [address]SS: 01/12/2018 Secondary NOT GIVENUNK [place] Insurance:SELF PAY [facility] Number: Effective Repository Date:2018-01-12 01/10/2018 COLLEEN Bernard Primary COLLEEN Reich [address] Insurance:PRAVEEN BENJAMIN MILLERDOB: [place] [address] [facility] [id number] Hospital 62624Qtu: (330) Number: Repository [phone] () [id number] Date:5105-83-95WFTO CLAIMS DEPTPO [address] [place] [address]QV: 01/10/2018 Secondary NOT GIVENUNK Rachana Insurance:SELF PAY [facility] Number: Effective Repository Date:2018-01-10 01/02/2018 COLLEEN Bernard Primary COLLEEN Bernard Rachana [address] Insurance:ANTHEM MILLERDOB: [place] [address] [facility] [id number] Hospital 44637Hfg: 330 ADVANTAPolicy Number: Repository [phone] () [id number] Date:0720-17-59GH[address] [address]TJ: 01/02/2018 Secondary NOT GIVENUNK Rachana Insurance:SELF PAY [facility] Number: Effective Repository Date:2018-01-02 12/17/2017 COLLEEN Bernard Primary COLLEEN Reich [address] Insurance:ANTHEM MILLERDOB: [place] [address] [facility] [id number] Hospital 41576Nmm: (330) Number: Repository [phone] () [id number] Date:5739-93-06CM[address] [address]LC: 12/17/2017 Secondary NOT GIVENUNK [place] Insurance:SELF PAY [facility] Hospital Number: Effective Repository Date:2017-12-15 11/26/2017 COLLEEN K Primary COLLEEN Reich [address] Insurance:ANTHEM MILLERDOB: [place] [address] [facility] [id number] Hospital 14294Ryr: (330) Number: Repository [phone] () [id number] Date:6998-02-56KS [address] [place] [address] 322[address]VT: 11/26/2017 Secondary NOT GIVENUNK Rachana Insurance:SELF PAY [facility] Number: Effective Repository Date:2017-11-06 11/15/2017 COLLEEN Bernard Primary COLLEEN K Rachana [address] Insurance:ANTHEM MILLERDOB: [place] [address] PPOPolicy [id number] Hospital 30084Fad: (330) Number: Repository [phone] () [id number] Date:5463-22-19NF [address] [place] [address] 65[address]LO: 11/15/2017 Secondary NOT GIVENUNK [place] Insurance:SELF PAY [facility] Number: Effective Repository Date:2017-11-15 11/12/2017 COLLEEN Bernard Primary COLLEEN K [place] [address] Insurance:ANTHEM MILLERDOB: [place] [address] PPOPolicy [id number] Hospital 78564Fhd: (330) Number: Repository [phone] () [id number] Date:6530-98-23JR [address] [place] [address]JH: 11/12/2017 Secondary NOT GIVENUNK Rachana Insurance:SELF PAY [facility] Hospital Number: Effective Repository Date:2017-11-05 11/05/2017 COLLEEN Bernard Primary COLLEEN K [place] [address] Insurance:ANTHEM MILLERDOB: [facility] [place] PPOPolicy [id number] Hospital 20792Qpa: (330) Number: Repository [phone] () [id number] Date:7468-95-10LP [address] [place] [address] 94138IQ: 11/05/2017 Secondary COLLEEN K Rachana Insurance:[facility] MILLERDOB: Community *IN [facility] [id number] Hospital Number: Repository [id number] Date:6191-74-84CIPU CLAIMS DEPTPO [address], [place] [address]VA: 11/05/2017 Tertiary NOT GIVENUNK Rachana Insurance:SELF PAY [facility] Number: Effective Repository Date:2017-11-05 10/17/2017 COLLEEN Bernard Primary COLLEEN Reich [address] Insurance:ANTHEM MILLERDOB: [place] [address] PPOPolicy [id number] Hospital 16980Pxk: (330) Number: Repository [phone] () [id number] Date:0133-02-65TS [id number] [place] [address] 588[address]IM: 10/17/2017 Secondary NOT GIVENUNK [place] Insurance:SELF PAY [facility] Number: Effective Repository Date:2017-10-17 10/13/2017 [facility] COLLEEN Bernard [place] [address] Insurance:ANTHEBENEZER DE MILLERDOB: [facility] [place] [facility] MEDIC[facility] [id number] [address], [place] [address]Sxl: Number: [place] [id number] () Date:Plan Name: 10/10/2017 COLLEEN Bernard Primary COLLEEN Reich [address] Insurance:ANTHEM MILLERDOB: [facility] [place] PPOPolicy [id number] Hospital 98068Lks: (330) Number: Repository [phone] () [id number] Date:6065-41-67OK [address] [place] [address] 14736CQ: 10/10/2017 Secondary COLLEEN Reich Insurance:PRAVEEN WADE MILLERDOB: Community *IN [facility] [id number] Hospital Number: Repository [id number] Date:4417-40-49TUCM [facility] [address], [place] [address]BQ: 10/10/2017 Tertiary NOT GIVENUNK [place] Insurance:SELF PAY [facility] Number: Effective Repository Date:2017-10-10 10/04/2017 COLLEEN Bernard Primary COLLEEN Bernard Rachana [address] Insurance:MYCARE CRSC MILLERDOB: [place] [address] [facility] [id number] Hospital 07425Qug: (330) Number: Repository [phone] () [id number] Date:5357-13-64CLSP CLAIMS DEPTPO [address] [address]WM: 10/04/2017 Secondary NOT GIVENUNK Rachana Insurance:SELF PAY [facility] Number: Effective Repository Date:2017-10-04 08/17/2017 COLLEEN Bernard Primary COLLEEN Bernard Rachana [address] Insurance:MYCARE CRSC MILLERDOB: [place] [address] [facility] [id number] Hospital 38013Aip: (330) Number: Repository [phone] () [id number] Date:1836-19-08TYMH CLAIMS DEPTPO [address] [address]CF: 08/17/2017 Secondary NOT GIVENUNK Rachana Insurance:SELF PAY [facility] Number: Effective Repository Date:2017-06-25 07/17/2017 COLLEEN K Primary COLLEEN Bernard Rachana [address] Insurance:MYCARE CRSC MILLERDOB: [place] [address] [facility] [id number] Hospital 53353Okn: (330) Number: Repository [phone] () [id number] Date:7515-71-28UOFJ CLAIMS DEPTPO [address] [address]WD: 07/17/2017 Secondary NOT GIVENUNK Rachana Insurance:SELF PAY [facility] Number: Effective Repository Date:2017-07-17 07/08/2017 COLLEEN K Primary COLLEEN Bernard Rachana [address] Insurance:MYCARE CRSC MILLERDOB: [place] [address] [facility] [id number] Hospital 98071Gub: (330) Number: Repository [phone] () [id number] Date:2658-13-63YJMH CLAIMS DEPTPO [address] [address]LY: 07/08/2017 Secondary NOT GIVENUNK [place] Insurance:SELF PAY [facility] Number: Effective Repository Date:2017-06-24 06/30/2017 COLLEEN Bernard Primary COLLEEN K Rachana [address] Insurance:MYCARE CRSC MILLERDOB: [place] [address] [facility] [id number] Hospital 51040Hqq: (330) Number: Repository [phone] () [id number] Date:5817-68-34RKGY CLAIMS DEPTPO [address] [address]MD: 06/30/2017 Secondary NOT GIVENUNK Rachana Insurance:SELF PAY [facility] Number: Effective Repository Date:2017-06-30 06/24/2017 COLLEEN Bernard Primary COLLEEN K Rachana [address] Insurance:MYCARE CRSC MILLERDOB: [place] [address] [facility] [id number] Hospital 34233Rjh: (330) Number: Repository [phone] () [id number] Date:0500-37-68VIHQ CLAIMS DE[address]PO [address] [address]PZ: 06/24/2017 Secondary NOT GIVENUNK [place] Insurance:SELF PAY [facility] Number: Effective Repository Date:2017-06-24 06/24/2017 COLLEEN Bernard Primary COLLEEN K Rachana [address] Insurance:MYCARE CRSC MILLERDOB: [place] [address] [facility] [id number] [address]Rgz: (330) Number: Repository [phone] () [id number] Date:4071-42-51MYBP CLAIMS DEPTPO [address] [address]AM: 06/24/2017 Secondary NOT GIVENUNK [place] Insurance:SELF PAY [facility] Number: Effective Repository Date:2017-06-24 06/11/2017 COLLEEN Bernard Primary COLLEEN Bernard Rachana [address] Insurance:MYCARE CRSC MILLERDOB: [place] [address] [facility] [id number] Hospital 07666Jlu: (330) Number: Repository [phone] () [id number] Date:6008-96-71HSGM CLAIMS DE[address]PO [address] [address]IQ: 06/11/2017 Secondary NOT GIVENUNK [place] Insurance:SELF PAY [facility] Number: Effective Repository Date:2017-06-10 05/27/2017 COLLEEN K Primary COLLEEN Bernard [place] [address] Insurance:MYCARE CRSC MILLERDOB: [place] [address] [facility] [id number] Hospital 67283Zuo: (330) Number: Repository [phone] () [id number] Date:8012-28-54XHVT CLAIMS DE[address]PO [address] [address]QY: 05/27/2017 Secondary NOT GIVENUNK [place] Insurance:SELF PAY [facility] Number: Effective Repository Date:2017-05-13 05/13/2017 COLLEEN K Primary COLLEEN Bernard [place] [address] Insurance:MYCARE CRSC MILLERDOB: [place] [address] [facility] [id number] Hospital 02663Eku: (330) Number: Repository [phone] () [id number] Date:2181-02-78BVOJ CLAIMS DE[address]PO [address] [address]XH: 05/13/2017 Secondary NOT GIVENUNK Rachana Insurance:SELF PAY [facility] Number: Effective Repository Date:2017-05-04 05/04/2017 COLLEEN K Primary COLLEEN Bernard Rachana [address] Insurance:MYCARE CRSC MILLERDOB: [place] [address] [facility] [id number] Hospital [address]Ggk: [phone]) Number: Repository [phone] [id number] Date:[id number] [address]S [address] [address]FE: 05/04/2017 Secondary NOT GIVENUNK Rachana Insurance:SELF PAY [facility] Number: Effective Repository Date:2017-05-04 04/29/2017 COLLEEN Bernard Primary COLLEEN K Rachana [address] Insurance:MYCARE CRSC MILLERDOB: [place] [address] [facility] [id number] Hospital [address]Dbf: ([phone]) Number: Repository [phone] [id number] Date:[id number] [address]S [address] [address]HE: 04/29/2017 Secondary NOT GIVENUNK Rachana Insurance:SELF PAY [facility] Number: Effective Repository Date:2017-04-29 04/29/2017 COLLEEN Bernard Primary COLLEEN K [place] [address] Insurance:MYCARE CRSC MILLERDOB: [place] [address] [facility] [id number] [address]Kvi: [phone]) Number: Repository [phone] () [id number] Date:[id number] [place]S [address] [address]UM: 04/29/2017 Secondary NOT GIVENUNK [place] Insurance:SELF PAY [facility] Number: Effective Repository Date:2017-04-29 04/28/2017 COLLEEN Joana Primary COLLEEN K Rachana [address] Insurance:MYCARE CRSC MILLERDOB: [place] [facility] [id number] Hospital [address]Boy: [phone]) Number: Repository [phone] () [id number] Date:[id number] [address]S [address], [place] [address]TW: 04/28/2017 Secondary NOT GIVENUNK [place] Insurance:SELF PAY [facility] Number: Effective Repository Date:2017-03-18 04/28/2017 COLLEEN Bernard Primary COLLEEN Bernard [place] [address] Insurance:MYCARE CRSC MILLERDOB: [place] [facility] [id number] Hospital [address]Jck: [phone]) Number: Repository [phone] () [id number] Date:[id number] [address]S [address] [address]VK: 04/28/2017 Secondary NOT GIVENUNK Rach[place] Insurance:SELF PAY [facility] Number: Effective Repository Date:2017-04-27 04/28/2017 COLLEEN Bernard Primary COLLEEN Bernard Rachana [address] Insurance:MYCARE CRSC MILLERDOB: [place] [facility] [id number] Hospital [address]Lrp: [phone]) Number: Repository [phone] () [id number] Date:[id number] [address]S [address] [address]KJ: 04/28/2017 Secondary NOT GIVENUNK Rachana Insurance:SELF PAY [facility] Number: Effective Repository Date:2017-04-28 04/28/2017 COLLEEN Bernard Primary COLLEEN Bernard [place] [address] Insurance:MYCARE CRSC MILLERDOB: [place] [facility] [id number] Hospital [address]Xiy: [phone]) Number: Repository [phone] () [id number] Date:3724-01-77UFBT [address]S [address] [address]BT: 04/28/2017 Secondary NOT GIVENUNK [place] Insurance:SELF PAY [facility] Number: Effective Repository Date:2017-04-28 04/28/2017 COLLEEN Bernard Primary COLLEEN Bernard Rachana [address] Insurance:MYCARE CRSC MILLERDOB: [place] [facility] [id number] Hospital [address]Ewb: [phone]) Number: Repository [phone] () [id number] Date:9945-28-75IQSO [address]S [address] [address]RK: 04/28/2017 Secondary NOT GIVENUNK [place] Insurance:SELF PAY [facility] Number: Effective Repository Date:2017-04-28 04/28/2017 COLLEEN Bernard Primary COLLEEN K [place] [address] Insurance:MYCARE CRSC MILLERDOB: [place] [facility] [id number] Hospital [address]Vmc: [phone]) Number: Repository [phone] () [id number] Date:[id number] [address], [place] [address]RG: 04/28/2017 Secondary NOT GIVENUNK [place] Insurance:SELF PAY [facility] Number: Effective Repository Date:2017-04-28 04/28/2017 COLLEEN Bernard Primary COLLEEN K Rachana [address] Insurance:MYCARE CRSC MILLERDOB: [place] [facility] [id number] Hospital [address]Don: [phone]) Number: Repository [phone] () [id number] Date:[id number] [address] [address]BT: 04/28/2017 Secondary NOT GIVENUNK Rachana Insurance:SELF PAY [facility] Number: Effective Repository Date:2017-04-28 04/28/2017 COLLEEN Joana Primary COLLEEN K [place] [address] Insurance:MYCARE CRSC MILLERDOB: [place] [facility] [id number] Hospital [address]Bmw: [phone]) Number: Repository [phone] () [id number] Date:[id number] [address]S [address], [place] [address]SN: 04/28/2017 Secondary NOT GIVENUNK Rachana Insurance:SELF PAY [facility] Number: Effective Repository Date:2017-04-28 04/28/2017 COLLEEN Bernard Primary COLLEEN Reich [facility] [address] Insurance[facility] [place] [facility] [id number] Hospital [address]Wvo: [phone]) Number: Repository [phone] () [id number] Date:[id number] CLAIMS [address] [place] [address]AL: 04/28/2017 Secondary NOT GIVENUNK Rachana Insurance:SELF PAY [facility] Number: Effective Repository Date:2017-04-28
== END 2018-04-17 10:05 | disposition home or self-care (01) ==
PROVIDERS: Emergency Provider Emergency Medicine; Family Provider Internal Medicine; PCP Internal Medicine
DX: K62.89 Other specified diseases of anus and rectum (principal); E11.9 Type 2 diabetes mellitus without complications; Z79.4 Long term (current) use of insulin
CPT/HCPCS: 99282

== ENCOUNTER 2018-04-21 13:00 | Outpatient (RCR) | payer MEDICARE, SELFPAY ==
--- NOTE | 2018-02-08 11:30 | HP.PTEVAL_ITS ---
Patient's Visit Information COLLEEN MILIAN is a 42 year old F referred to Physical Therapy by Hazel Osborn DO with a diagnosis of R quad strain. Date of Evaluation: 02/08/18 Physical Therapist: Bruce Clayton, PT, - Visit Plan Frequency: 2-3x /Week Duration: 4-6 Weeks Plan: R LE stretching and strengthening, core stab ex's, balance and proprio, nustep, and HEP - Subjective Subjective: Pt reports she was at her moms house when a dog peed on the floor and she slipped in it, resulting in her performing a split type of motion with her Le's. Pt reports she went to the Dr's and found out she has a strained R quad muscle. Pt reports she had xrays taken at the ER and they were negative. Pt reports she was Dx'd in the ER with a bad contusion. Pt reports her R knee has been giving out on her sincce this injury. No R LE tingling or numbness at this time. Pt reports she has sleep difficulty secondary to pain. No PMHx of pain like this. Pt reports walking and stair negotiation is very difficult at this time secondary to pain. Pt rates her current pain at 10/10. - Pain R knee Pain Intensity (Out of 10): 10 Pain Intensity Range: 10 - Objective Neuro: B LE sensation is WNL to light touch. B patellar reflex= 2/3. Palpation: Pt is very tender on the patella and the inferior quad tendon. No obvious deform ity. ROM: L knee 0-117 degrees, R knee 0-107 degrees. MMT: R knee flexion= 4/5, ext= 4-/5. L knee 5/5 throughout - Goals Goal 1:: Decrease R quad pain x 50% to aid with sleep Goal Time Frame: 4-6 Weeks Goal 2:: Increase R LE strength x 1 grade to aid with stair negotiation Goal Time Frame: 4-6 Weeks Goal 3:: Increase R knee flexion ROM x 10 degrees to aid with IADL's Goal Time Frame: 4-6 Weeks Goal 4:: I with HEP Goal Time Frame: 4-6 Weeks - Rehabilitation Potential Physical Therapy Diagnosis: Pt has R knee pain, weakness, and difficulty with IADL's secondary to R quad strain Rehabilitation Potential: Good - Anticipated Interventions Patient/Client Instruction: Educate patient on: Condition, Plan of Care For the Purpose of:: To improve self management Therapeutic Exercise to Include: Strength training, Endurance training, Balance training, Flexibilty training, Active ROM, Dynamic Lumbar Stabilization For the Purpose of:: To decrease pain, To increase ROM, To improve muscle performance and motor function Cryotherapy (ice pack, ice massage): Yes For the Purpose of:: To decrease pain Thank you for the opportunity to evaluate your patient. For Medicare and Medicare HMO plans, please review the plan of care and approve it. It will need to be FAXED BACK to us at [phone] for Medicare purposes. Please let me know if there are questions or concerns regarding this plan of care. Physician Signature: Date:
--- NOTE | 2018-04-21 13:59 | HP.PTDCSUM ---
HP - PT D/C Summary It has been my pleasure to treat COLLEEN MILIAN under orders from Hazel Osborn DO, for the diagnosis of R quad strain for a total of 8 visit(s). Discharge Date: Please see the following information for a summary of their discharge status. - Subjective Subjective: No pain this date - Pain R knee Pain Intensity (Out of 10): 0 L hip Pain Intensity (Out of 10): Unrated - Objective Objective/Function: R quad pain 0/10 currently. R LE MMT 5/5 throughout. R knee ROM 0-130 degrees. Pt is I with HEP. Rx goals achieved - Goals Goal 1:: Decrease R quad pain x 50% to aid with sleep Goal Progress: Goal Met Goal 2:: Increase R LE strength x 1 grade to aid with stair negotiation Goal Progress: Goal Met Goal 3:: Increase R knee flexion ROM x 10 degrees to aid with IADL's Goal Progress: Goal Met Goal 4:: I with HEP Goal Progress: Goal Met - Plan Plan: discharge - D/C Information If there are questions or concerns regarding this patient's physical therapy, please feel free to call me at [phone]. Thank you for the referral of this patient. Sincerely, Bruce Clayton, PT, ATC
== END 2018-04-21 18:43 | disposition home or self-care (01) ==
LOC: PT 13:00
PROVIDERS: Family Provider Internal Medicine; PCP Internal Medicine; Visit Provider Orthopaedic Surgery
DX: S76.111D Strain of right quadriceps muscle, fascia and tendon, subsequent encounter (principal)
CPT/HCPCS: 97110; 97161; 97530

== ENCOUNTER 2018-04-23 21:25 | Emergency (ER) | payer MEDICARE, SELFPAY ==
[2018-04-21 09:26] VITALS: BMI 27.6
[2018-04-23 21:25] VITALS: BP 137/95; PULSE 101; RESP 16; O2SAT 99
[2018-04-23 21:26] VITALS: BP 150/107; PULSE 110; RESP 18; TEMP 36.4; O2SAT 100; BMI 41.9
--- NOTE | 2018-04-23 21:36 | ED.VISSUMM ---
- ER Visit Summary Date of Service: 04/23/18 Chief Complaint: Rectal bleeding History of Present Illness: The patient is a 42 F who presents to the emergency department with bright red blood per rectum. Patient states that she was straining to move her bowels tonight. She states shortly after, she noticed bright red blood with her bowel movements. She denies any abdominal pain. She is not on anticoagulants. She denies any fevers or chills. She has had some mild nausea recently, but states this is not uncommon for her. She has no history of Crohn's or ulcerative colitis. Physical Examination: Vital signs reviewed General: Well-nourished, well-developed Head: Normocephalic, atraumatic Eyes: Pupils equal and reactive, extraocular muscles intact Neck, supple, no lymphadenopathy Heart: Regular rate and rhythm Respiratory: No distress, clear bilaterally Abdomen: Soft, nontender, nondistended, no peritoneal signs Rectal exam: Patient does have a fissure with mild active bleeding at the 6 o'clock position. There is no hemorrhoid. There is no evidence of abscess. Back: Nontender Extremities: Nontender, no edema, no cords Skin: Normal color no rash Neuro: Alert and oriented, no focal or lateralizing deficits Test Results: [] Emergency Department Course and Treatment: Patient does have evidence of bleeding fissure. It is very mild. She is not on anticoagulants. There is no evidence of abscess. Patient will continue sits baths and topical Anusol ointment. She will be placed on stool softeners. She was counseled on concerning symptoms and reasons to return. She will be discharged to home. Treatment Plan: [] Disposition: Discharge Impression: Anal fissure This note was generated with [employer] dictation software. It may contain incorrect words, spelling, and punctuation that were not noted in review of the chart prior to signing ED Disposition - Plan for ED Patient: Chief Complaint: GI Bleed Instructions: ED Hematochezia Stable Prescriptions: Ondansetron [Zofran Odt] 4 mg PO Q8H PRN PRN #10 tab PRN Reason: Nausea Docusate Sodium [Colace] 100 mg PO DAILY #20 cap Hydrocortisone Acetate Cream [Anusol Hc] 1 applic TOPICAL TID PRN PRN #1 tube PRN Reason: Rectal Discomfort Referrals: Timmy Park MD [Primary Care Provider] -
[2018-04-23 22:10] VITALS: BP 137/95; PULSE 101; RESP 16; O2SAT 99
== END 2018-04-23 22:16 | disposition home or self-care (01) ==
LOC: ED 22:09
PROVIDERS: Emergency Provider Emergency Medicine; Family Provider Internal Medicine; PCP Internal Medicine
DX: K60.2 Anal fissure, unspecified (principal); E11.9 Type 2 diabetes mellitus without complications; Z79.4 Long term (current) use of insulin; Z79.899 Other long term (current) drug therapy
CPT/HCPCS: 99282

== ENCOUNTER 2018-05-04 18:22 | Emergency (ER) | payer MEDICARE, SELFPAY ==
[2018-05-04 18:23] VITALS: BP 149/92; PULSE 89; RESP 14; TEMP 36.2; O2SAT 99; BMI 27.1
--- NOTE | 2018-05-04 18:30 | RAD_ITS ---
STUDY: X-RAY - LEFT KNEE REASON FOR EXAM: Female, 42 years old. Trauma TECHNIQUE: 4 view(s) of the knee. COMPARISON: None. FINDINGS: There is no evidence of fracture or dislocation. There are no significant degenerative changes. There are no radiodense foreign bodies. RAD/Knee 4 or More Views IMPRESSION: No fracture or dislocation. Electronically Signed: Jerry Hannah, at 19:11 EST Tel , Service support ,
--- NOTE | 2018-05-04 19:30 | ED.VISSUMM ---
- ER Visit Summary Date of Service: 05/04/18 Chief Complaint: Left knee injury History of Present Illness: The patient is a 42 F who presents for left knee injury. Patient tripped over a box at home and landed on her left knee. She denies any other injuries, such as hitting her head, loss consciousness, neck pain or back pain. She has been able to weight-bear on the leg but states it hurts. She did not take any medication for the pain. Physical Examination: Vital signs: afebrile, hemodynamically stable, no hypoxia on room air General: well nourished, well developed, in no distress Skin: warm, dry, no rash, no pallor Examination of the left knee shows a small abrasion to the anterior inferior knee. No deformities. Symmetric appearance compared to the right. Full flexion and extension of the knee. No varus or valgus stress. Negative anterior and posterior drawer sign. No ballotable fluid collection. Distal sensation motor function intact bilaterally. Test Results: Clinical Impression(s) from Imaging Studies Knee X-Ray 05/04/18 18:30 IMPRESSION: No fracture or dislocation. Electronically Signed: Jerry Hannah, at 19:11 EST Tel , Service support , Medications Given Discontinued Medications Acetaminophen (Tylenol) 650 mg PO X1 ONE Stop: 05/04/18 19:33 Last Admin: 05/04/18 19:48 Dose: 650 mg Emergency Department Course and Treatment: She was given Tylenol for pain. X-ray performed as per nursing protocol showed no fractures. Patient had a benign knee examination, with only a small abrasion and contusion on the anterior knee. Patient is able to weight-bear without difficulty. Patient will use vnip-yug-jggpicy pain medication as needed and ice the knee. Discharged home. Treatment Plan: [] Disposition: [] Impression: Left knee contusion This note was generated with [employer] dictation software. It may contain incorrect words, spelling, and punctuation that were not noted in review of the chart prior to signing ED Disposition - Plan for ED Patient: Disposition: Home or Assisted Living Instructions: ED Contusion Lower Ext Referrals: Timmy Park MD [Primary Care Provider] - As Needed Additional Instructions: You have bruised your knee. There are no broken bones. Please use hmrp-upv-noklgln pain medication as needed for pain. Apply ice to the knee 3-4 times a day for 15-20 minutes each time to help with pain and swelling. If you have any worsening of your condition or any new concerning symptoms, please return immediately to the emergency department for another evaluation.
--- NOTE | 2018-05-04 19:32 | ED.DEP ---
ED Disposition - Plan for ED Patient: Disposition: Home or Assisted Living Instructions: ED Contusion Lower Ext Referrals: Timmy Park MD [Primary Care Provider] - As Needed Additional Instructions: You have bruised your knee. There are no broken bones. Please use xvvw-ltc-vrbtkni pain medication as needed for pain. Apply ice to the knee 3-4 times a day for 15-20 minutes each time to help with pain and swelling. If you have any worsening of your condition or any new concerning symptoms, please return immediately to the emergency department for another evaluation.
[2018-05-04] MEDS: Acetaminophen 325 MG Tablet 650 MG PO (19:48)
[2018-05-04 19:51] VITALS: PULSE 86; RESP 22; O2SAT 97
--- NOTE | 2018-05-04 19:52 | ED.RN ---
THIS NURSE REVIEWED D/C INSTRUCTIONS WITH PT. PT VERBALIZED UNDERSTANDING OF INSTRUCTIONS. PT DENIES FURTHER NEEDS OR QUESTIONS AT THIS TIME. PT AMBULATES FROM ROOM ON OWN WITHOUT ASSISTANCE FROM STAFF
== END 2018-05-04 19:57 | disposition home or self-care (01) ==
PROVIDERS: Emergency Provider Emergency Medicine; Family Provider Internal Medicine; PCP Internal Medicine
DX: S80.02XA Contusion of left knee, initial encounter (principal); W18.09XA Striking against other object with subsequent fall, initial encounter; Y93.9 Activity, unspecified; Y92.009 Unspecified place in unspecified non-institutional (private) residence as the place of occurrence of the external cause; Z72.0 Tobacco use
CPT/HCPCS: 73564; 99283

== ENCOUNTER → 2018-05-17 11:04 | Outpatient (CLI) | payer MEDICARE, SELFPAY ==
[2018-05-17 10:31] VITALS: BMI 27.1
--- NOTE | 2018-05-17 11:05 | RAD_ITS ---
STUDY: X-RAY - LEFT KNEE REASON FOR EXAM: Female, 42 years old. Pain TECHNIQUE: 4 view(s) of the knee. COMPARISON: May 04, 2018 FINDINGS: Normal visualized distal femur. Normal visualized proximal tibia and fibula. Normal proximal tibiofibular articulation. Normal medial femorotibial compartment. Normal lateral femorotibial compartment. Normal patellofemoral articulation. The soft tissue structures are unremarkable. RAD/Knee 4 or More Views IMPRESSION: Normal x-ray examination of the knee. Electronically Signed: Jeanie Michael MD at 2:28 EST Tel , Service support ,
== END ==
PROVIDERS: Family Provider Internal Medicine; PCP Internal Medicine; Referring Provider Physician Assistant; Visit Provider Physician Assistant
DX: M25.562 Pain in left knee (principal)
CPT/HCPCS: 73564

== ENCOUNTER 2018-05-19 19:34 | Emergency (ER) | payer MEDICARE, SELFPAY ==
[2018-05-17 10:31] VITALS: BMI 27.1
[2018-05-19 19:35] VITALS: BP 128/93; PULSE 91; RESP 16; TEMP 36.7; O2SAT 97; BMI 27.9
--- NOTE | 2018-05-19 20:00 | RAD_ITS ---
STUDY: X-RAY - LEFT FOOT CLINICAL: Female, 42 years old. Edema. Pain. TECHNIQUE: 3 view(s) of the foot. COMPARISON: February 21, 2017. FINDINGS: Normal talus, calcaneus, and tarsal bones. Normal visualized subtalar, talonavicular, calcaneocuboid, tarsal and tarsometatarsal articulations. Normal metatarsi. Normal metatarsophalangeal joint of the great toe. Normal tibial and fibular sesamoid bones. Normal interphalangeal joint of the great toe. Normal phalanges of the great toe. Normal second through fifth metatarsophalangeal joints. Normal interphalangeal joints and phalanges of the lesser toes. The soft tissue structures are unremarkable. There is no demonstrated fracture. RAD/Foot min 3 Views IMPRESSION: Normal x-ray examination of the foot. Electronically Signed: Froy Fischer MD at 20:39 EST , Service support ,
--- NOTE | 2018-05-19 22:20 | ED.VISSUMM ---
- ER Visit Summary Date of Service: 05/19/18 Chief Complaint: Left foot pain History of Present Illness: The patient is a 42 F presents with left foot pain that began 2 weeks ago when she fell and twisted her knee. Patient states the pain in her foot became worse today. Patient denies any new injury. Patient admits to some swelling over the left foot. Patient states she has been taking Tylenol and ibuprofen with minimal relief. Patient denies any paresthesias or weakness. Patient denies any other injuries. Physical Examination: Vital signs are stable. Patient is afebrile. Patient is in no acute distress. Musculoskeletal exam reveals tenderness over the lateral aspect of the left foot over the distal fifth metatarsal. There is no bony crepitance or step-off. There is some mild edema and ecchymosis noted. Range of motion was slightly limited secondary to pain. Pedal pulses are equal bilaterally. Capillary refill was less than 2 seconds in all digits. Sensation was intact to light touch in all digits. Emergency Department Course and Treatment: X-rays of the left foot were obtained. There is no acute fracture. Patient was given a postop shoe. Patient was instructed to ice and elevate the left foot. Patient was given a prescription for meloxicam. Patient was instructed to follow-up with her primary care physician in 7-10 days. Patient understood and was agreeable with the plan. All questions were answered. Disposition: Discharge home Impression: Left foot contusion This note was generated with [employer] dictation software. It may contain incorrect words, spelling, and punctuation that were not noted in review of the chart prior to signing ED Disposition - Plan for ED Patient: Disposition: Home or Assisted Living Diagnosis: Contusion of left foot, initial encounter Instructions: ED Contusion Foot Prescriptions: Meloxicam 15 mg PO DAILY PRN PRN #10 tab PRN Reason: Pain Referrals: Timmy Park MD [Primary Care Provider] -
[2018-05-19 22:43] VITALS: BP 124/60; PULSE 98; RESP 18; O2SAT 96
== END 2018-05-19 22:44 | disposition home or self-care (01) ==
PROVIDERS: Emergency Provider Emergency Medicine; Family Provider Internal Medicine; PCP Internal Medicine
DX: S90.32XA Contusion of left foot, initial encounter (principal); W19.XXXA Unspecified fall, initial encounter; Y93.9 Activity, unspecified; Y92.9 Unspecified place or not applicable; E11.9 Type 2 diabetes mellitus without complications; Z79.4 Long term (current) use of insulin; Z79.899 Other long term (current) drug therapy; Z72.0 Tobacco use
CPT/HCPCS: 73630; 99283

== ENCOUNTER 2018-06-16 21:07 | Emergency (ER) | payer MEDICARE, SELFPAY ==
[2018-06-16 21:08] VITALS: BP 134/58; PULSE 107; RESP 18; TEMP 36.6; O2SAT 100; BMI 27.6
[2018-06-16 21:56] VITALS: BP 121/76; PULSE 104; RESP 16; O2SAT 97
--- NOTE | 2018-06-16 22:26 | ED.DCSUM_ITS ---
- ER Visit Summary Date of Service: 06/16/18 Chief Complaint: Cough History of Present Illness: The patient is a 42 F history of noncemented diabetes. Patient states that she is had a cough for the last 2 days. Posttussive emesis. Currently does not feel nauseated. States her blood sugars have been running well around 160. No documented fever. No dysuria. No abdominal pain. Physical Examination: Well-appearing middle-age female. Vital signs are stable. She is afebrile. She does not look septic or toxic. No distress. Pulse ox 97% on room air no hypoxia. HEENT exam unremarkable. Moist weeks membranes. Neck nontender no lymphadenopathy. Lungs dry hacking cough but no rales, rhonchi or wheezing. Heart regular rate and rhythm no murmur. Abdomen soft and nontender. Patient moving all 4 extremities. Calves are nontender without edema or cords. Neurologically she is awake alert with no focal motor deficits. Test Results: Chest x-ray 2 views shows no acute abnormality. Normal cardiac silhouette. No infiltrate. Emergency Department Course and Treatment: Patient doing well repeat exam at 2330. Treatment Plan: Viral syndrome. Fluids and rest. Axld-sml-cojloeu cough syrup. Disposition: Discharge Impression: Acute bronchitis This note was generated with [employer] dictation software. It may contain incorrect words, spelling, and punctuation that were not noted in review of the chart prior to signing ED Disposition - Plan for ED Patient: Referrals: Timmy Park MD [Primary Care Provider] -
--- NOTE | 2018-06-16 22:30 | RAD_ITS ---
STUDY: X-RAY CHEST REASON FOR EXAM: Female, 42 years old. Cough TECHNIQUE: PA and lateral views of the chest. COMPARISON: April 30, 2017. FINDINGS: There is hyperinflation of the lungs consistent with chronic obstructive lung disease (COPD). There is no demonstrated pleural abnormality. Normal size heart. Normal mediastinum and kishan. Normal visualized pulmonary arteries. Normal visualized aortic arch and descending thoracic aorta. There is a dextroscoliosis of the thoracic spine. Normal visualized ribs, clavicles, and shoulders. There is no demonstrated abnormality of the visualized soft tissue structures of the upper abdomen. RAD/Chest PA and Lateral IMPRESSION: Degenerative changes, as described above. No demonstrated acute cardiopulmonary process. Electronically Signed: Froy Fischer MD at 22:59 EDT , Service support ,
--- NOTE | 2018-06-16 23:31 | ED.DEP ---
ED Disposition - Plan for ED Patient: Disposition: Home or Assisted Living Instructions: ED URI Viral Referrals: Timmy Park MD [Primary Care Provider] - 1 Week if not improving Additional Instructions: Plan fluids and rest. Tylenol Motrin for fever and body aches. Follow-up with your doctor if not improving. Fqsj-olo-vtvlzfo cough syrup.
[2018-06-16 23:39] VITALS: PULSE 115; RESP 17; O2SAT 96
== END 2018-06-16 23:40 | disposition home or self-care (01) ==
PROVIDERS: Emergency Provider Emergency Medicine; Family Provider Internal Medicine; PCP Internal Medicine
DX: J20.8 Acute bronchitis due to other specified organisms (principal); E11.9 Type 2 diabetes mellitus without complications; Z79.4 Long term (current) use of insulin; Z79.84 Long term (current) use of oral hypoglycemic drugs; Z79.899 Other long term (current) drug therapy; Z72.0 Tobacco use
CPT/HCPCS: 71046; 99283

== ENCOUNTER 2018-06-23 21:02 | Emergency (ER) | payer MEDICARE, SELFPAY ==
[2018-06-23 21:03] VITALS: BP 129/83; PULSE 78; RESP 15; TEMP 37.1; O2SAT 98; BMI 27.7
--- NOTE | 2018-06-23 22:21 | ED.VISSUMM ---
- ER Visit Summary Date of Service: 06/23/18 Chief Complaint: Nonproductive cough History of Present Illness: The patient is a 42 F G of insulin-dependent diabetes. Patient is a smoker. She was seen here less than a week ago. At that time diagnosed with a viral bronchitis. She states she is not getting better. Denies chest pain. Denies hemoptysis. Denies fever. Physical Examination: Middle-aged female. No acute distress. Vital signs are stable. Afebrile. Pulse ox 98% on room air no hypoxia. H EENT exam unremarkable. Poor dentition. Neck nontender. Trachea midline. No lymphadenopathy. Lungs dry hacking cough but no rales, rhonchi or wheezing. Equal and symmetrical. Heart regular rate and rhythm no murmur. Abdomen is soft and nontender. Normal bowel sounds no peritoneal signs. Extremities moves all 4. Calves nontender no edema. She does have a orthopedic boot on her left ankle and foot from an ankle sprain. However there is no swelling or edema. Neurologically she is awake and alert. Test Results: Prior visit patient had a chest x-ray which is read as negative both by myself and the radiologist. Emergency Department Course and Treatment: I explained the patient she absolutely needs to stop smoking. I explained to her that most likely this is a viral syndrome and may take 2-3 weeks to resolve. Treatment Plan: Follow-up with your doctor as needed. Disposition: Discharge Impression: Acute bronchitis This note was generated with [employer] dictation software. It may contain incorrect words, spelling, and punctuation that were not noted in review of the chart prior to signing ED Disposition - Plan for ED Patient: Referrals: Timmy Park MD [Primary Care Provider] -
--- NOTE | 2018-06-23 22:23 | ED.DEP ---
ED Disposition - Plan for ED Patient: Disposition: Home or Assisted Living Instructions: ED Bronchitis Asthmatic Prescriptions: Azithromycin [Zithromax Z-Carmelo] 250 mg PO UD #1 box Referrals: Tmimy Park MD [Primary Care Provider] - 1 Week if not improving Additional Instructions: Only start the antibiotic if you are not getting better in 4 days. Plenty fluids and rest. Absolutely stop smoking. Follow-up with not improving.
== END 2018-06-23 22:34 | disposition home or self-care (01) ==
PROVIDERS: Emergency Provider Emergency Medicine; Family Provider Internal Medicine; PCP Internal Medicine
DX: J20.9 Acute bronchitis, unspecified (principal); E11.9 Type 2 diabetes mellitus without complications; J45.909 Unspecified asthma, uncomplicated; F17.200 Nicotine dependence, unspecified, uncomplicated; Z79.4 Long term (current) use of insulin; Z79.84 Long term (current) use of oral hypoglycemic drugs; Z79.899 Other long term (current) drug therapy
CPT/HCPCS: 99282

== ENCOUNTER 2018-08-17 23:14 | Emergency (ER) | payer MEDICARE, SELFPAY ==
[2018-08-17 23:14] VITALS: BP 123/82; PULSE 99; RESP 16; TEMP 36.9; O2SAT 94; BMI 25.8
--- NOTE | 2018-08-17 23:33 | ED.VIS.GEN ---
History of Present Illness Chief Complaint: Lower Extremity Injury Informant: Patient Onset: Month(s) - 1 Context: - - unk onset Timing: Continuous Quality: sore Location: left ankle Current Severity: Moderate Maximum Severity: Moderate Worsened by: weight bearing Relieved by: rest Associated Symptoms: swelling ankle, foot Narrative: Patient states she has had swelling and pain in her left ankle for the last month. She called the nurse line tonight ask about it and she advised that she come immediately to the emergency department. She denies any shortness of breath, palpitations, chest pain. She states her ankle is itching some tonight. She has become worried about it the last few days because things are not getting better. She states because of swelling in both of her legs related to her diabetes, she has been on a diuretic for a year or more, she has been compliant with it. She states she is urinating normally. She denies any injury recently but states she did injure her left ankle 5 months ago and does not think this is related to it. She cannot remember how she injured it. Nothing is new today except for her call to the nursing line. She has never had a DVT and she takes no anticoagulants. Past Medical History - Allergies and Home Meds Allergies/Adverse Reactions: Allergies bee venom protein (honey bee) Allergy (Verified 06/23/18 21:07) Angioedema mold Allergy (Verified 06/23/18 21:07) Itching naproxen Allergy (Verified 06/23/18 21:07) Unknown venom-honey bee [bee venom (honey bee)] Allergy (Verified 06/23/18 21:07) Swelling amoxicillin Adverse Reaction (Verified 06/23/18 21:07) Upset Stomach guaifenesin [From Robitussin] Adverse Reaction (Verified 06/23/18 21:07) Nausea shrimp Adverse Reaction (Verified 06/23/18 21:07) Vomiting Sulfa (Sulfonamide Antibiotics) Adverse Reaction (Verified 06/23/18 21:07) Vomiting Primary Care Physician: Timmy Park MD [Primary Care Provider] - Surgical History: cholecystectomy, - - Septoplasty with submucous resection, repair of internal nasal vestibular stenosis with placement of bilateral cartilage hand leather trimmer grafts from the nasal septum, cholecystectomy, 3 and 3 C-sections, open reduction right orbital floor blowout fracture using combined approach with periorbital and transantral with titanium placement, mesh reconstruction. Smoking Status: Current every day smoker - Family History Maternal Family History: Family History (This Medical Record has been edited. Action required.) Unknown No problems noted. Family History: Reports: - - Family history is unknown as she is adopted. Additional Family History: She is adopted Paternal Family History: Family History (This Medical Record has been edited. Action required.) Unknown No problems noted. Family History: Reports: - - Family history is unknown as she is adopted. Review of Systems General: Denies: Chills, Fever Musculoskeletal: Reports: Swelling, Extremity Pain Skin: Denies: Rash, Wounds Physical Exam Vital Signs/Narrative: Vital Signs Temp Pulse Resp BP Pulse Ox 08/17/18 23:14 98.5 F 99 16 123/82 H 94 Inital Vital Signs reviewed: Yes General: Well nourished, Well developed, No Acute Distress Head: Normocephalic, Atraumatic Extremities: Nontender, Edema - trace BLE pretibial edema to midshins, appears grossly symmetric, - - FROM all joints, including left ankle, which does not appear swollen, erythemetous, or excessively warm/hot. Negative for: Calf Tenderness Skin: Normal color, No rash, No Trauma Neurological: Alert, Oriented x3, Cranial nerves II-XII grossly intact, Normal Strength, Normal Sensation, Normal Gait Psychological: Normal affect, Normal Mood Diagnostic/Tx/Re-eval - Medical Decision Making Objectively I am having trouble appreciating any asymmetry in her lower extremities. Patient points out that the veins in the dorsum of her left foot are less prominent than the ones in the right. I can feel her malleoli just below the surface of the skin and can appreciate no swelling at her ankle, which she moves without any apparent difficulty. She has no calf tenderness and she has mild pretibial edema bilaterally and it appears to be fairly symmetric. To ease her concerns I ordered an outpatient ultrasound to rule out DVT, which is not available at the hour she presents. She is comfortable with this plan and asking for something for pain so I can sleep tonight. I offered a dose of anti-inflammatory. She states those do not work for me so instead, she is offered Tylenol. ED Disposition - Plan for ED Patient: Disposition: Home or Assisted Living Diagnosis: Left ankle pain, Edema of left lower extremity Instructions: ED Leg Swelling Unilateral Referrals: Timmy Park MD [Primary Care Provider] - 3-5 Days (after you have your labs/blood drawn)
[2018-08-17] MEDS: Acetaminophen 500 MG Tablet 1000 MG PO (23:43)
[2018-08-17 23:58] VITALS: PULSE 87; RESP 16; O2SAT 99
== END 2018-08-18 00:07 | disposition home or self-care (01) ==
PROVIDERS: Emergency Provider Emergency Medicine; Family Provider Internal Medicine; PCP Internal Medicine
DX: M25.572 Pain in left ankle and joints of left foot (principal); R60.0 Localized edema; F17.200 Nicotine dependence, unspecified, uncomplicated
CPT/HCPCS: 99282

== ENCOUNTER → 2018-08-18 13:56 | Outpatient (CLI) | payer MEDICARE, SELFPAY ==
[2018-08-17 23:14] VITALS: BMI 25.8
--- NOTE | 2018-08-18 14:00 | VDLE_ITS ---
Reason For Study: Swelling Procedure LEFT Exam performed in department. GSV is normal. A preliminary report was called and/or faxed CFV is compressible, spontaneous, phasic, to Xavier. competent, and demonstrates normal augmentation. FV is compressible, spontaneous, phasic, competent and demonstrates normal augmentation. POP V is compressible, spontaneous, phasic, competent and demonstrates normal augmentation. T/P Trunk is compressible. PTV is compressible. LT PerV is compressible. Interpretation Summary Deep veins of the left lower extremity are patent and compressible segmentally. There is no evidence of left lower extremity deep vein thrombosis. Valvular competence appears intact within the proximal deep venous system on the left . The left greater saphenous vein appears patent and compressible segmentally. Ordering Physician: KEITH HERNANDEZ Referring Physician: Timmy Park M.D. Performed By: Elena Delaney RVT
== END ==
PROVIDERS: Family Provider Internal Medicine; PCP Internal Medicine; Referring Provider Emergency Medicine; Visit Provider Emergency Medicine
DX: M79.89 Other specified soft tissue disorders (principal)
CPT/HCPCS: 93971

== ENCOUNTER 2018-09-08 02:22 | Emergency (ER) | payer MEDICARE, MEDICAID, SELFPAY ==
[2018-09-08 02:24] VITALS: BP 121/83; PULSE 96; RESP 16; TEMP 36.7; O2SAT 97; BMI 26.4
--- NOTE | 2018-09-08 02:39 | ED.VISSUMM ---
- ER Visit Summary Date of Service: 09/08/18 Chief Complaint: Left upper extremity injury History of Present Illness: The patient is a 42 F who was scratched in the left hand by her cat yesterday. This morning the cat scratch on her left index finger. Physical Examination: Vital signs unremarkable. Patient is in no acute distress. Left upper extremity examination reveals healing abrasions to the dorsum of the left hand. No sign of infection at this time. There is a 3 mm superficial abrasion to the left index finger with minimal bleeding. She has full range of motion and normal sensation. Test Results: [] Emergency Department Course and Treatment: Wounds are cleansed and dressed with bacitracin ointment. She is instructed on wound care. Treatment Plan: [] Disposition: Discharge Impression: Superficial cat scratch left hand This note was generated with [employer] dictation software. It may contain incorrect words, spelling, and punctuation that were not noted in review of the chart prior to signing ED Disposition - Plan for ED Patient: Disposition: Home or Assisted Living Instructions: ED Bite Cat Referrals: Timmy Park MD [Primary Care Provider] - 1 Week
== END 2018-09-08 03:22 | disposition home or self-care (01) ==
PROVIDERS: Emergency Provider Emergency Medicine; Family Provider Internal Medicine; PCP Internal Medicine
DX: S60.411A Abrasion of left index finger, initial encounter (principal); S60.512A Abrasion of left hand, initial encounter; W55.03XA Scratched by cat, initial encounter; Y93.9 Activity, unspecified; Y92.9 Unspecified place or not applicable; J45.909 Unspecified asthma, uncomplicated; E11.9 Type 2 diabetes mellitus without complications; M06.9 Rheumatoid arthritis, unspecified; F41.9 Anxiety disorder, unspecified; F32.9 Major depressive disorder, single episode, unspecified; Z79.4 Long term (current) use of insulin; Z79.84 Long term (current) use of oral hypoglycemic drugs; Z79.899 Other long term (current) drug therapy; Z72.0 Tobacco use
CPT/HCPCS: 99283

== ENCOUNTER 2018-10-06 19:53 | Emergency (ER) | payer MEDICARE, MEDICAID, SELFPAY ==
[2018-10-06 19:54] VITALS: BP 129/90; PULSE 108; RESP 16; TEMP 37.1; O2SAT 95; BMI 24.4
--- NOTE | 2018-10-06 20:59 | EKG12_ITS ---
Test Reason : WEAKNESS Blood Pressure : / mmHG Vent. Rate : 084 BPM Atrial Rate : 084 BPM P-R Int : 152 ms QRS Dur : 070 ms QT Int : 354 ms P-R-T Axes : 051 -08 034 degrees QTc Int : 418 ms Normal sinus rhythm Normal ECG Confirmed by MARYBEL NGUYEN, MERCEDES ([id number]), news copy editor LIBBY JAIMES ([id number]) on 10/08/2018 12:26:20 PM Referred By: Confirmed By:ASIM NO MD
[2018-10-06] MEDS: Ondansetron 4 MG/2 ML Vial IV (21:16)
[2018-10-06] MEDS: 0.9% Normal Saline 1,000 ML 1000 ML IV (21:16)
[2018-10-06 21:29] LABS: Absolute Lymphocyte Count 4.19 X10^3/ul (0.83-4.51); Absolute Neutrophil Count 8.3 X10^3/uL (2.0-7.7); Basophil# 0.02 X10^3/uL; Basophil% 0.1 % (0-1); Eosinophil# 0.11 X10^3/uL; Eosinophils% 0.8 % (0-5); Hematocrit 40.9 % (37-47); Hemoglobin 13.8 g/dl (12.0-15.0); Lymphocyte # 4.19 X10^3/ul (4.0); Mean Corp Hgb Conc 33.7 g/gl (32-36); Mean Corpuscular Hgb 29.9 pg (27.0-32.0); Mean Corpuscular Volume 88.7 fL (81-99); Mean Platelet Vol. 10.9 fl (6.2-12.0); Monocyte# 0.85 X10^3/uL; Monocyte% 6.3 % (0-10); Neutrophil # 8.28 X10^3/uL (2.7-7.7); Neutrophil % 61.4 % (47-70); Platelet Count 309 K/mm3 (150-450); RBC Distribution Width SD 41.6 fl (35.1-43.9); Red Blood Count 4.61 M/mm3 (4.2-5.4); White Blood Count 13.5 K/mm3 (4.4-11.0)
[2018-10-06 21:30] LABS: POSITIVE COUNT NO; POSITIVE DIFFERENTIAL NO; POSITIVE MORPHOLOGY NO
[2018-10-06 21:45] LABS: AST(SGOT) 9 U/L (15-37); Alanine Aminotransfer ALT/SGPT 17 U/L (13-56); Albumin, Serum 3.5 g/dL (3.2-5.0); Alkaline Phosphatase 97 U/L (45-117); Anion Gap 9 (5-15); BUN 7 mg/dL (7-18); BUN/Creat Ratio 7.5 RATIO (10-20); Calcium,Total 9.8 mg/dL (8.5-10.1); Chloride 98 mmol/L (98-107); Creatinine, Serum 0.94 mg/dL (0.55-1.02); EST Glomerular Filtration Rate 70 mL/min (>60); Est Glom Filt Rate - Afr Amer 84 mL/min (>60); Estimated Creatinine Clearance 61.66 ml/min; Globulin 3.4 g/dL (2.2-4.2); Glucose 138 mg/dL (74-106); Protein, Total 6.9 g/dL (6.4-8.2); Sodium Level 134 mmol/L (136-145)
--- NOTE | 2018-10-06 21:47 | ED.VISSUMM ---
- ER Visit Summary Date of Service: 10/06/18 Chief Complaint: Generalized weakness History of Present Illness: The patient is a 43 F presenting with generalized weakness. She states this started in the shower today. She states that she felt weak all over. She denies lightheadedness or syncope. Denies chest pain. She states she has had similar episodes in the past in the summer. She states her house does not have air conditioning. She has been out in the heat. She has had nausea and vomiting and diarrhea. She states no vomiting today. Denies other complaints. Physical Examination: Vitals are stable. Heart rate 108. Patient is afebrile. Alert no acute distress. HEENT exam is unremarkable. Neck is supple. No meningismus Lungs are clear and equal bilaterally. Heart is regular and tachycardic Abdomen is soft nontender nondistended. Extremities are unremarkable. Skin is warm and dry. No focal neurologic deficit. NIH 0 Remainder of exam is unremarkable. Emergency Department Course and Treatment: EKG is sinus rate of 84 with no acute ischemic changes. Patient was given IV fluids, Zofran. CBC normal except white count 13.5. Chemistries normal except potassium 3.0, glucose 138. She was given potassium oral replacement. Troponin is negative. Urinalysis unremarkable. On reevaluation, patient is resting comfortably. She is advised to follow-up with her primary care physician. Advised to return to the ED for worsening complaints. Disposition: Discharge home Impression: Generalized weakness This note was generated with [employer] dictation software. It may contain incorrect words, spelling, and punctuation that were not noted in review of the chart prior to signing ED Disposition - Plan for ED Patient: Referrals: Timmy Park MD [Primary Care Provider] -
[2018-10-06 22:05] LABS: Mucous, Urine 0 SEEN /hpf (<or=2+); Red Blood Cells-Urine 0 SEEN /hpf (0-5)
[2018-10-06 22:08] LABS: Color, Urine Yellow (Yellow); Glucose, Dipstick Normal (Normal); Ketone-Dipstick Negative (Negative); Leukocyte Esterase-Dipstick 25 /ul (Negative); Nitrite-Dipstick Negative (Negative); Occult Blood-Urine Negative /ul (Negative); Protein-Dipstick Negative (Negative); Specific Gravity, Urine 1.005 (1.002-1.030); Urine Bilirubin Dipstick Negative (Negative); Urine Clarity Sl. Cloudy (Clear); Urine Urobilinogen Normal (Normal)
[2018-10-06 22:50] VITALS: BP 124/76; PULSE 80; RESP 18; O2SAT 97
[2018-10-06 22:56] LABS: Squamous Epithelial Cells - UA 5-10 SEEN /hpf (5-10); Transitional Epithelial - Ur 0-5 SEEN /hpf (0-5); White Blood Cells 0-5 SEEN /hpf (0-5)
[2018-10-06 22:58] LABS: Bacteria RARE /hpf (None Seen)
--- NOTE | 2018-10-06 23:22 | ED.DEP ---
ED Disposition - Plan for ED Patient: Instructions: WEAKNESS, Unk Cause Referrals: Timmy Park MD [Primary Care Provider] -
[2018-10-06 23:24] VITALS: PULSE 80; RESP 18
== END 2018-10-06 23:35 | disposition home or self-care (01) ==
LOC: ED 20:36
PROVIDERS: Emergency Provider Emergency Medicine; Family Provider Internal Medicine; PCP Internal Medicine
DX: R53.1 Weakness (principal); R11.2 Nausea with vomiting, unspecified; R19.7 Diarrhea, unspecified; E11.9 Type 2 diabetes mellitus without complications; F41.9 Anxiety disorder, unspecified; Z90.49 Acquired absence of other specified parts of digestive tract; Z79.84 Long term (current) use of oral hypoglycemic drugs; Z79.4 Long term (current) use of insulin; Z79.899 Other long term (current) drug therapy; Z72.0 Tobacco use
CPT/HCPCS: 80053; 81001; 84484; 85025; 93005; 96361; 96374; 99285; J7030; A4216; J2405

== ENCOUNTER 2018-10-10 18:20 | Emergency (ER) | payer MEDICARE, MEDICAID, SELFPAY ==
[2018-10-10 18:21] VITALS: BP 115/76; PULSE 87; RESP 16; TEMP 36.1; O2SAT 97; BMI 24.0
--- NOTE | 2018-10-10 18:55 | ED.DCSUM_ITS ---
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 She states normally since his surgery on it. At times it is a throbbing pain. No history of DVT . This was diagnosed of her left knee. He denies any fever. No recent trauma. Physical Examination: Well-appearing middle-aged female. Vital signs stable afebrile. HEENT exam poor dentition. Lungs clear to auscultation. Heart regular rhythm no murmur. Abdomen soft nontender. Moving all 4 extremities n eurovascular intact. I do not feel an obvious William's cyst behind her left knee. The knee itself is not swollen. No effusion. No redness. Normal range of motion to her left hip and knee. Left calf is nontender nonswollen. No cord. Left foot is neurovascularly intact. No edema. Otherwise exam unremarkable. Test Results: None Emergency Department Course and Treatment: Patient will be given 2 [place] for pain. She understands he cannot do a stat MRI on this today and she does not need a stat noninvasive study. Follow-up with her primary care physician for further evaluation. Treatment Plan: Motrin for pain. Follow-up with her PCP. Disposition: Discharge Impression: Left leg pain History of William's cyst This note was generated with [employer] dictation software. It may contain incorrect words, spelling, and punctuation that were not noted in review of the chart prior to signing ED Disposition - Plan for ED Patient: Referrals: Timmy Park MD [Primary Care Provider] -
--- NOTE | 2018-10-10 18:58 | ED.DEP ---
ED Disposition - Plan for ED Patient: Disposition: Home or Assisted Living Referrals: Timmy Park MD [Primary Care Provider] - As soon as possible Additional Instructions: Motrin for your leg pain. Follow-up your primary care physician they can either do an MRI of your knee
[2018-10-10 19:05] VITALS: RESP 16
[2018-10-10] MEDS: HYDROcodone Bitartrate/Apap 5/325 Tablet PO (19:06)
== END 2018-10-10 19:29 | disposition home or self-care (01) ==
LOC: ED 19:27
PROVIDERS: Emergency Provider Emergency Medicine; Family Provider Internal Medicine; PCP Internal Medicine
DX: M79.605 Pain in left leg (principal); Z87.39 Personal history of other diseases of the musculoskeletal system and connective tissue; E11.9 Type 2 diabetes mellitus without complications; Z79.4 Long term (current) use of insulin; Z79.84 Long term (current) use of oral hypoglycemic drugs; Z79.899 Other long term (current) drug therapy; Z72.0 Tobacco use
CPT/HCPCS: 99282

== ENCOUNTER 2018-11-06 22:49 | Emergency (ER) | payer MEDICARE, MEDICAID, SELFPAY ==
[2018-11-06 22:49] VITALS: BP 144/80; PULSE 97; RESP 16; TEMP 36.8; O2SAT 95; BMI 24.3
[2018-11-06 23:25] VITALS: BP 138/74; PULSE 71; RESP 18; O2SAT 98
--- NOTE | 2018-11-06 23:25 | ED.VISSUMM ---
- ER Visit Summary Date of Service: 11/06/18 Chief Complaint: Chronic neck pain History of Present Illness: The patient is a 43 F who has had neck pain for about a year. It is worse tonight. She feels a popping and cracking. Is worse with movement. She tried Aleve, ibuprofen and Tylenol at home. She then tells me she has a buprenorphine patch as prescribed by her pain management doctor that is not helping her neck pain but it helps her lower back pain. She saw her primary care doctor for this who told her she needs to see a environmental protection specialist. Physical Examination: Vital signs reviewed. Neck exam reveals diffuse cervical tenderness. There are no step-offs. She has no neurologic abnormalities. The rest of her exam is unremarkable Test Results: None performed Emergency Department Course and Treatment: Patient will be given a shot of Norflex and Toradol here. She will go home with NSAIDs. She will call her pain management doctor for follow-up Treatment Plan: [] Disposition: Discharge Impression: Chronic neck pain This note was generated with [employer] dictation software. It may contain incorrect words, spelling, and punctuation that were not noted in review of the chart prior to signing ED Disposition - Plan for ED Patient: Referrals: Timmy Park MD [Primary Care Provider] -
--- NOTE | 2018-11-06 23:27 | ED.DEP ---
ED Disposition - Plan for ED Patient: Disposition: Home or Assisted Living Instructions: BACK PAIN (Acute or Chronic) Prescriptions: Diflunisal [Dolobid] 500 mg PO TID #20 tab Prescription Printed Referrals: Timmy Park MD [Primary Care Provider] -
[2018-11-06] MEDS: Ketorolac 60 MG/2 ML Vial IM (23:35)
[2018-11-06] MEDS: Orphenadrine 60 MG/2 ML Ampul IM (23:35)
== END 2018-11-06 23:40 | disposition home or self-care (01) ==
PROVIDERS: Emergency Provider Emergency Medicine; Family Provider Internal Medicine; PCP Internal Medicine
DX: M54.2 Cervicalgia (principal); G89.29 Other chronic pain
CPT/HCPCS: 96372; 99282

== ENCOUNTER 2018-12-23 13:30 | Outpatient (RCR) | payer MEDICARE, MEDICAID, SELFPAY ==
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
== END 2018-12-23 19:00 | disposition home or self-care (01) ==
LOC: PT 13:30
PROVIDERS: Family Provider Internal Medicine; PCP Internal Medicine
DX: M48.02 Spinal stenosis, cervical region (principal); M54.2 Cervicalgia; G89.29 Other chronic pain; T74 Adult and child abuse, neglect and other maltreatment, confirmed
CPT/HCPCS: 97035; 97140; 97161

== ENCOUNTER 2019-01-01 19:44 | Emergency (ER) | payer MEDICARE, MEDICAID, SELFPAY ==
[2019-01-01 19:45] VITALS: BP 110/69; PULSE 87; RESP 15; TEMP 36.6; O2SAT 100; BMI 24.7
--- NOTE | 2019-01-01 20:02 | ED.DCSUM_ITS ---
History of Present Illness Chief Complaint: Abscess Informant: Patient Onset: Days - Noticed 2 days ago Context: Sudden Onset Timing: Continuous Quality: Abscess Location: Right inguinal region Current Severity: Mild Maximum Severity: Mild Worsened by: Attempt to drain with pin Relieved by: Nothing Narrative: Patient is a 43-year-old diabetic who presents with abscess located between the right inguinal crease and right labia majora. She denies fever, chills or night sweats. She denies elevation of her blood sugars from normal. She denies polyuria polydipsia. She denies visual disturbance. She denies dysuria, frequency, urgency or hematuria. She denies vaginal bleeding or discharge. 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 cranial nerve V Past Medical History - Allergies and Home Meds Allergies/Adverse Reactions: Allergies bee venom protein (honey bee) Allergy (Verified 01/01/19 19:50) Angioedema mold Allergy (Verified 01/01/19 19:50) Itching naproxen Allergy (Verified 01/01/19 19:50) Unknown venom-honey bee [bee venom (honey bee)] Allergy (Verified 01/01/19 19:50) Swelling amoxicillin Adverse Reaction (Verified 01/01/19 19:50) Upset Stomach guaifenesin [From Robitussin] Adverse Reaction (Verified 01/01/19 19:50) Nausea shrimp Adverse Reaction (Verified 01/01/19 19:50) Vomiting Sulfa (Sulfonamide Antibiotics) Adverse Reaction (Verified 01/01/19 19:50) Vomiting Primary Care Physician: Timmy Park MD [Primary Care Provider] - Prior records reviewed: Yes Surgical History: cholecystectomy, - - Septoplasty with submucous resection, repair of internal nasal vestibular stenosis with placement of bilateral cartilage supervisor metal furniture fabrication grafts from the nasal septum, cholecystectomy, 3 and 3 C- sections, open reduction right orbital floor blowout fracture using combined approach with periorbital and transantral with titanium placement, mesh reconstruction. Lives: Spouse/ Significant Other Smoking Status: Current every day smoker Alcohol: None Drugs: None - Family History Maternal Family History: Family History (This Medical Record has been edited. Action required.) Unknown No problems noted. Family History: Reports: - - Family history is unknown as she is adopted. Additional Family History: She is adopted Paternal Family History: Family History (This Medical Record has been edited. Action required.) Unknown No problems noted. Family History: Reports: - - Family history is unknown as she is adopted. Review of Systems General: Denies: Chills, Fever, Malaise, Subjective, Sweats, Weight loss, - Eyes: Denies: Visual changes - bilaterally, Blurred Vision - bilaterally Cardiovascular: Denies: Chest pain, Palpitations Respiratory: Denies: Dyspnea, Cough, Dyspnea on exertion Gastrointestinal: Denies: Abdominal pain, Nausea, Vomiting, Diarrhea, Melena, Hematochezia Genitourinary: Denies: Dysuria, Hematuria, Frequency Musculoskeletal: Denies: Myalgias, Arthralgias, Neck pain, Back pain, Swelling, Extremity Pain, -, - Skin: Reports: Rash, Abscess Neurological: Denies: Headache, Weakness, Parasthesia, Numbness, -, - Hematologic: Denies: Easy bruising, Easy bleeding Allergy: Denies: Uticaria Physical Exam Vital Signs/Narrative: Vital Signs Temp Pulse Resp BP Pulse Ox 01/01/19 19:45 97.9 F 87 15 110/69 100 Inital Vital Signs reviewed: Yes General: Well nourished, Well developed, No Acute Distress Head: Normocephalic, Atraumatic Eyes: Perrl, EOMI. Negative for: Pale conjunctiva, Scleral icterus ENT: Moist mucous membranes, No rhinorrhea Neck: Supple, Nontender, No lymphadenopathy, No JVD Cardiovascular: Regular rate, Regular rhythm, No murmurs, Normal S1, Normal S2 Respiratory: No distress, CTA bilaterally, Chest nontender Abdomen: Soft, Nontender, Nondistended, Normal bowel sounds Extremities: Nontender, No edema Skin: Normal color, No rash, - - Abscess noted as previously mentioned Neurological: Alert, Oriented x3, Cranial nerves II-XII grossly intact, Normal Strength, Normal Sensation Psychological: Normal affect, Normal Mood Diagnostic/Tx/Re-eval - Medical Decision Making Patient with subcutaneous abscess. There is no evidence of cellulitis. There is nothing lymphadenopathy. Plan is to locally anesthetized and incised and drained. Since she is diabetic we will place on short course of doxycycline. We will check PGT since she is diabetic Procedures Procedure(s): Patient was informed that she required incision and drainage. She was informed what the procedure entailed. She gave verbal consent. Patient was prepped draped sterile manner. The area was cleansed. The area was anesthetized by local infiltration. Using a 10 blade incision was made with approximately 1 cc of purulent material that flowed freely from the cavity. Blunt dissection was undertaken. There is no evidence of cellulitis. Since the patient is diabetic and area of abscess she was prescribed 5 days of doxycycline. She received her first dose in the emergency department. ED Disposition - Plan for ED Patient: Disposition: Home or Assisted Living Diagnosis: Abscess of right groin Instructions: ABSCESS, Incision and Drainage Prescriptions: Doxycycline 100 mg PO BID #10 cap Prescription Printed Referrals: Timmy Park MD [Primary Care Provider] - 2 Days for wound check Additional Instructions: Take antibiotics until gone.
[2019-01-01] MEDS: Diphth,Pertuss(Acell),Tet Vac 0.5 ML Vial IM (20:19)
[2019-01-01] MEDS: Doxycycline 100 MG CAPSULE PO (20:29)
[2019-01-01 20:41] LABS: Bedside Glucose 139 mg/dL (70-110)
== END 2019-01-01 20:47 | disposition home or self-care (01) ==
PROVIDERS: Emergency Provider Emergency Medicine; Family Provider Internal Medicine; PCP Internal Medicine
DX: L02.214 Cutaneous abscess of groin (principal); F17.200 Nicotine dependence, unspecified, uncomplicated; E11.9 Type 2 diabetes mellitus without complications; J45.909 Unspecified asthma, uncomplicated; M06.9 Rheumatoid arthritis, unspecified; G43.909 Migraine, unspecified, not intractable, without status migrainosus; F32.9 Major depressive disorder, single episode, unspecified; F41.9 Anxiety disorder, unspecified; Z79.4 Long term (current) use of insulin; Z79.84 Long term (current) use of oral hypoglycemic drugs; Z79.899 Other long term (current) drug therapy
CPT/HCPCS: 10060; 82962; 90715; 99282

== ENCOUNTER 2019-01-29 19:59 | Emergency (ER) | payer MEDICARE, MEDICAID, SELFPAY ==
[2019-01-29 19:59] VITALS: BP 142/95; PULSE 86; RESP 16; TEMP 36.7; O2SAT 98; BMI 24.2
[2019-01-29] MEDS: Ibuprofen 600 MG Tablet PO (20:25)
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
[2019-01-29 20:55] VITALS: BP 134/78; PULSE 81; RESP 20; O2SAT 97
== END 2019-01-29 20:56 | disposition home or self-care (01) ==
PROVIDERS: Emergency Provider Emergency Medicine; Family Provider Internal Medicine; PCP Internal Medicine
DX: S30.0XXA Contusion of lower back and pelvis, initial encounter (principal); W22.8XXA Striking against or struck by other objects, initial encounter; Y93.9 Activity, unspecified; F17.200 Nicotine dependence, unspecified, uncomplicated
CPT/HCPCS: 99283

== ENCOUNTER 2019-02-14 21:21 | Emergency (ER) | payer MEDICARE, MEDICAID, SELFPAY ==
[2019-02-14 21:22] VITALS: BP 119/72; PULSE 89; RESP 18; TEMP 36.5; O2SAT 98; BMI 23.3
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
[2019-02-14] MEDS: Ketorolac 30 MG/ML Syringe IM (22:01)
[2019-02-14] MEDS: Lidocaine 5% Patch 1 PATCH TOPICAL (22:02)
[2019-02-14] MEDS: Orphenadrine 60 MG/2 ML Ampul IM (22:02)
== END 2019-02-14 22:30 | disposition home or self-care (01) ==
PROVIDERS: Emergency Provider Emergency Medicine; Family Provider Internal Medicine; PCP Internal Medicine
DX: M54.2 Cervicalgia (principal); G89.29 Other chronic pain; F17.200 Nicotine dependence, unspecified, uncomplicated
CPT/HCPCS: 96372; 99282

== ENCOUNTER → 2019-03-02 15:43 | Outpatient (CLI) | payer MEDICARE, MEDICAID, SELFPAY ==
[2019-02-14 21:22] VITALS: BMI 23.3
== END ==
PROVIDERS: Family Provider Internal Medicine; PCP Internal Medicine; Referring Provider Otolaryngology Otolaryngology/Facial Plastic Surgery; Visit Provider Otolaryngology Otolaryngology/Facial Plastic Surgery
DX: J32.9 Chronic sinusitis, unspecified (principal)
CPT/HCPCS: 87070; 87077; 87186; 87205

== ENCOUNTER 2019-03-12 22:16 | Emergency (ER) | payer MEDICARE, MEDICAID, SELFPAY ==
[2019-03-12 22:17] VITALS: BP 116/68; PULSE 90; RESP 18; TEMP 36.4; O2SAT 94; BMI 23.8
--- NOTE | 2019-03-12 22:33 | ED.DCSUM_ITS ---
- ER Visit Summary Date of Service: 03/12/19 Chief Complaint: Bilateral intermittent hand pain and swelling History of Present Illness: The patient is a 43 F history of diabetes. Patient states she seen a guest services associate before in the past. Basically last 2 days in the morning as awoke with mild swelling her hands and a bit stiff. Said she has been using ibuprofen 3 times a day. Denies any falls or trauma. No fever. States she is urinating normally. Physical Examination: Middle-aged female no acute distress. Vital signs are stable. Afebrile. No distress. H EENT exam unremarkable. Neck nontender. No JVD. Lungs clear to auscultation. Heart regular rhythm no murmur. Abdomen soft and nontender. Normal bowel sounds. No peritoneal signs. Patient moving all 4 extremities. Neurovascular intact. No edema either in her hands or her feet or lower legs. She has normal range of motion of both hands. There is no rashes. Currently there is no swelling in the. Both hands are neurovascularly intact. There is no gross bony deformities. No severe signs of arthritis. Neurologically she is awake and alert with no focal motor deficits. Test Results: None Emergency Department Course and Treatment: I explained the patient most likely this is arthritis. But she did not need any testing. Currently her hands are not swollen. She has normal range of motion no significant stiffness. There is no significant signs of allergic reaction. I explained to the patient she can use Motrin for pain and inflammation and Tylenol. She did not feel that was controlling her discomfort. I explained her this is not something that we would use narcotic medications for. Treatment Plan: Ice to her hands as needed. Motrin for pain and inflammation. Follow-up with your doctor. Disposition: Discharge Impression: Transient hand pain and swelling secondary to arthritis This note was generated with [employer] dictation software. It may contain incorrect words, spelling, and punctuation that were not noted in review of the chart prior to signing ED Disposition - Plan for ED Patient: Referrals: Timmy Park MD [Primary Care Provider] -
--- NOTE | 2019-03-12 22:36 | ED.DEP ---
ED Disposition - Plan for ED Patient: Disposition: Home or Assisted Living Instructions: ED Osteoarthritis Referrals: Timmy Park MD [Primary Care Provider] - As Needed Additional Instructions: Elevate your hands whenever swollen. Motrin for pain and swelling. Follow-up with your doctor.
[2019-03-12 22:41] VITALS: RESP 15
== END 2019-03-12 22:42 | disposition home or self-care (01) ==
LOC: ED 22:38
PROVIDERS: Emergency Provider Emergency Medicine; Family Provider Internal Medicine; PCP Internal Medicine
DX: M19.042 Primary osteoarthritis, left hand (principal); M19.041 Primary osteoarthritis, right hand; E11.9 Type 2 diabetes mellitus without complications; Z79.84 Long term (current) use of oral hypoglycemic drugs; Z79.899 Other long term (current) drug therapy; Z72.0 Tobacco use
CPT/HCPCS: 99281

== ENCOUNTER 2019-04-17 14:44 | Emergency (ER) | payer MEDICARE, MEDICAID, SELFPAY ==
[2019-04-17 14:45] VITALS: BP 160/88; PULSE 98; RESP 16; TEMP 36.1; O2SAT 97; BMI 24.7
--- NOTE | 2019-04-17 15:35 | RAD_ITS ---
STUDY: X-RAY - LEFT WRIST REASON FOR EXAM: Female, 43 years old. INCREASING PAIN IN LEFT WRIST. PATIENT STATES SHE HAS CARPAL TUNNEL. TECHNIQUE: 3 view(s) of the wrist were obtained. COMPARISON: None. FINDINGS: Normal visualized distal radius and ulna. Normal radiocarpal articulation. Normal distal radioulnar articulation. Normal carpal bones. Normal carpal articulations. Normal carpometacarpal articulation of the thumb. Normal second through fifth carpometacarpal articulations. Normal visualized metacarpal bones. The soft tissue structures are unremarkable. RAD/Wrist min 3 Views IMPRESSION: No fracture or malalignment. Electronically Signed: Toño Smith MD (Brooks) at 16:07 EST , Service support ,
[2019-04-17] MEDS: Acetaminophen 500 MG Tablet 1000 MG PO (15:48)
--- NOTE | 2019-04-17 15:51 | ED.VISSUMM ---
- ER Visit Summary Date of Service: 04/17/19 Chief Complaint: Left wrist pain History of Present Illness: The patient is a [address] Perry and Dr. Park. She is left-hand dominant. She reports she has left wrist pain that began 1 month ago. She denies any trauma. No fall, MVA, or change in activity. She reports it is a sharp, constant pain is 10-10 in severity. It is worsened by movement. It is unrelieved by her Tylenol and Butrans patch. She reports that she has paresthesias in her hand that come and go. She denies any weakness. Physical Examination: Vitals: Stable. Afebrile. General: Well-nourished and well-developed. Head: Normocephalic atraumatic. Neck: Supple, no lymphadenopathy. No JVD. Nontender. Cardiovascular: Regular rate and rhythm. No murmurs. Respiratory: No respiratory distress. Clear to auscultation bilaterally. Abdominal: Soft, nontender, nondistended, normal bowel sounds. No guarding, rebound, or peritoneal signs. Back: Nontender. Extremities: No soft tissue swelling or contusion. She has mild diffuse tenderness palpation over both the palmar and dorsal surface of her wrist and hand that are diffuse. She has a negative Tinel's and Keyla test. 2+ radial pulse. Normal sensation to light touch throughout. Less than 2-second capillary refill. Skin: Normal color, no rash. Neurologic: Alert and oriented ?3. Cranial nerves II through XII are intact. Normal strength and sensation. Psych: Normal affect. Test Results: Clinical Impression(s) from Imaging Studies Wrist X-Ray 04/17/19 15:35 IMPRESSION: No fracture or malalignment. Electronically Signed: Toño Smith MD (Brooks) at 16:07 EST , Service support , Emergency Department Course and Treatment: Had a prolonged discussion the patient that she goes to pain management already has Butrans patch. I will not treat her with opiate-based medications. She was given Tylenol p.o. Treatment Plan: Patient will be discharged with a Velcro splint. Instructed use ibuprofen and/or Tylenol for pain. Follow-up Dr. Osborn in 1 week if not improving. Disposition: To home in improved and stable condition. Impression: 1. Left wrist pain, uncertain cause. This note was generated with [employer] dictation software. It may contain incorrect words, spelling, and punctuation that were not noted in review of the chart prior to signing ED Disposition - Plan for ED Patient: Disposition: Home or Assisted Living Instructions: Wrist Sprain Referrals: Hazel Osborn DO [STAFF PHYSICIAN] - 1 Week
== END 2019-04-17 16:27 | disposition home or self-care (01) ==
PROVIDERS: Emergency Provider Emergency Medicine; PCP Internal Medicine
DX: M25.532 Pain in left wrist (principal); E11.9 Type 2 diabetes mellitus without complications; J44.9 Chronic obstructive pulmonary disease, unspecified; Z79.4 Long term (current) use of insulin; Z79.84 Long term (current) use of oral hypoglycemic drugs; Z72.0 Tobacco use
CPT/HCPCS: 73110; 99283

== ENCOUNTER 2019-08-08 22:40 | Emergency (ER) | payer MEDICARE, MEDICAID, SELFPAY ==
[2019-08-08 22:41] VITALS: BP 123/63; PULSE 105; RESP 18; TEMP 36.5; O2SAT 97; BMI 26.4
--- NOTE | 2019-08-08 22:56 | US_ITS ---
HISTORY: RT POSTERIOR KNEE PAIN STINGS AND NEWELL EXAMINATION: US Venous duplex right lower extremity TECHNIQUE: Johnson scale, pulse wave, and color flow Doppler imaging was performed of the lower extremity venous system. The right greater saphenous, common femoral, femoral, and popliteal veins were interrogated. COMPARISON: None FINDINGS: There is normal compression, augmentation, and flow throughout the visualized right lower extremity deep veins No mass or fluid collection. US/Venous Duplex Imag/Limited/Uni IMPRESSION: Negative exam. No evidence of right lower extremity DVT. at [id number] Reported and signed by: Jeff Baig MD Electronically Signed: Jeff Baig at 23:26 EDT Tel , Service support ,
--- NOTE | 2019-08-08 23:29 | ED.DCSUM_ITS ---
History of Present Illness Chief Complaint: Lower Extremity Injury Detail of Chief Complaint: Posterior right knee pain Informant: Patient Onset: Today Context: Gradual Onset Timing: Waxes and wanes Current Severity: Mild Maximum Severity: Moderate Narrative: Patient presents with pain to the posterior right knee. She describes it as burning and shooting. She denies any injury. She called her PCPs office who recommended she come in to be sure there was no sign of blood clot. Patient denies prior blood clot. She denies chest pain or shortness of breath. She has not taken anything for pain today. - Past Medical History (1) Asthma Status: Chronic (2) Diabetes mellitus, type II Status: Chronic (3) Migraine Status: Chronic (4) Rheumatoid arthritis Status: Chronic Past Medical History - Allergies and Home Meds Allergies/Adverse Reactions: Allergies bee venom protein (honey bee) Allergy (Verified 04/17/19 14:47) Angioedema mold Allergy (Verified 04/17/19 14:47) Itching naproxen Allergy (Verified 04/17/19 14:47) Unknown venom-honey bee [bee venom (honey bee)] Allergy (Verified 04/17/19 14:47) Swelling amoxicillin Adverse Reaction (Verified 04/17/19 14:47) Upset Stomach guaifenesin [From Robitussin] Adverse Reaction (Verified 04/17/19 14:47) Nausea shrimp Adverse Reaction (Verified 04/17/19 14:47) Vomiting Sulfa (Sulfonamide Antibiotics) Adverse Reaction (Verified 04/17/19 14:47) Vomiting Primary Care Physician: Timmy Park MD [Primary Care Provider] - Prior records reviewed: Yes Surgical History: cholecystectomy, - - Septoplasty with submucous resection, repair of internal nasal vestibular stenosis with placement of bilateral cartilage costume mistress grafts from the nasal septum, cholecystectomy, 3 and 3 C- sections, open reduction right orbital floor blowout fracture using combined approach with periorbital and transantral with titanium placement, mesh reconstruction. Lives: Spouse/ Significant Other Smoking Status: Current every day smoker - Family History Maternal Family History: Family History (This Medical Record has been edited. Action required.) Unknown No problems noted. Family History: Reports: - - Family history is unknown as she is adopted. Additional Family History: She is adopted Paternal Family History: Family History (This Medical Record has been edited. Action required.) Unknown No problems noted. Family History: Reports: - - Family history is unknown as she is adopted. Review of Systems General: Denies: Chills, Fever Eyes: Denies: Visual changes - bilaterally ENT: Denies: Bilateral ear pain Cardiovascular: Denies: Chest pain Respiratory: Denies: Dyspnea, Cough Gastrointestinal: Denies: Abdominal pain, Nausea, Vomiting, Diarrhea Musculoskeletal: Reports: Extremity Pain Skin: Denies: Rash Neurological: Denies: Headache Hematologic: Denies: Easy bruising, Easy bleeding Allergy: Denies: Uticaria Physical Exam Vital Signs/Narrative: Vital Signs Temp Pulse Resp BP Pulse Ox 08/08/19 22:41 97.7 F L 105 H 18 123/63 H 97 Inital Vital Signs reviewed: Yes General: Well nourished, Well developed Head: Normocephalic ENT: Moist mucous membranes Neck: Supple Cardiovascular: Regular rate, Regular rhythm Respiratory: No distress, CTA bilaterally Abdomen: Soft, Nontender Extremities: - - Mild tenderness posterior right knee. No palpable cords or masses. No significant erythema. No calf tenderness or edema. Strong distal pulses noted. Skin: Normal color Neurological: Alert, Oriented x3, Normal Strength, Normal Sensation Psychological: Normal affect Diagnostic/Tx/Re-eval - Medical Decision Making Venous ultrasound is performed and reveals no evidence of DVT. Jaret wrap is applied to the knee and she is given ibuprofen. She will continue Tylenol at home. ED Disposition - Plan for ED Patient: Disposition: Home or Assisted Living Diagnosis: Right knee pain Instructions: ED Strain Muscle Ext Referrals: Timmy Park MD [Primary Care Provider] - As Needed
[2019-08-08 23:36] VITALS: PULSE 80; RESP 16; O2SAT 98
[2019-08-08] MEDS: Ibuprofen 600 MG Tablet PO (23:38)
== END 2019-08-08 23:40 | disposition home or self-care (01) ==
PROVIDERS: Emergency Provider Emergency Medicine; PCP Internal Medicine
DX: M25.561 Pain in right knee (principal); F17.200 Nicotine dependence, unspecified, uncomplicated; E11.9 Type 2 diabetes mellitus without complications; J45.909 Unspecified asthma, uncomplicated; M06.9 Rheumatoid arthritis, unspecified; G43.909 Migraine, unspecified, not intractable, without status migrainosus; Z79.84 Long term (current) use of oral hypoglycemic drugs; Z79.899 Other long term (current) drug therapy
CPT/HCPCS: 93971; 99283

== ENCOUNTER 2019-09-08 13:23 | Emergency (ER) | payer MEDICARE, MEDICAID, SELFPAY ==
[2019-09-08 13:25] VITALS: BP 139/92; PULSE 99; RESP 16; TEMP 36.9; O2SAT 99; BMI 23.3
--- NOTE | 2019-09-08 14:01 | CT_ITS ---
STUDY: CT BRAIN WITHOUT CONTRAST REASON FOR EXAM: Female, 43 years old. RIGHT ARM TREMOR X3 MONTHS -- HX-CLOSED ORBITAL FLOOR FX W/ SURGERY -- HX-MIGRAINES,DIAB RADIATION DOSAGE (If Supplied By Facility): CTDIvol = ( 44.99 ) mGy, DLP = ( 711.75 ) mGycm TECHNIQUE: Transaxial CT imaging of the brain was performed without administration of intravenous contrast material. Individualized dose optimization techniques were used for this CT. COMPARISON: Comparison is made with prior examination dated December 24, 2014. FINDINGS: Normal soft tissue structures. Normal calvarium. Normal size ventricles and extra-axial spaces for the patient''s age. Normal white matter tracts of the cerebral hemispheres. Normal basal ganglia and thalami. Normal brainstem. Normal cerebellum. There is no intracranial hemorrhage. There are no findings of an acute ischemic infarction. There is evidence of a prior ORIF of the right orbital floor and anterior wall of the right maxillary sinus. CT/Brain/Head without Contrast IMPRESSION: Normal unenhanced CT scan of the brain. Electronically Signed: Saul Colon, at 14:32 EDT , Service support ,
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
--- NOTE | 2019-09-08 15:57 | ED.DEP ---
ED Disposition - Plan for ED Patient: Disposition: Home or Assisted Living Referrals: Timmy Park MD [Primary Care Provider] - As soon as possible Additional Instructions: Because of your right arm tremors is unknown at this time. Please follow-up with your physician for further evaluation. Your CAT scan today was normal.
[2019-09-08 16:01] VITALS: BMI 23.3
== END 2019-09-08 16:02 | disposition home or self-care (01) ==
PROVIDERS: Emergency Provider Emergency Medicine; PCP Internal Medicine
DX: R25.1 Tremor, unspecified (principal); E11.9 Type 2 diabetes mellitus without complications; E78.00 Pure hypercholesterolemia, unspecified; Z87.820 Personal history of traumatic brain injury; Z79.4 Long term (current) use of insulin; Z79.899 Other long term (current) drug therapy; Z72.0 Tobacco use
CPT/HCPCS: 70450; 99282

== ENCOUNTER 2019-09-19 21:13 | Emergency (ER) | payer MEDICARE, MEDICAID, SELFPAY ==
[2019-09-19 21:14] VITALS: BP 128/68; PULSE 85; RESP 18; TEMP 36.6; O2SAT 98; BMI 24.3
--- NOTE | 2019-09-19 21:31 | ED.VIS.GEN ---
History of Present Illness Chief Complaint: Rash Informant: Patient Onset: - - A long time Narrative: Patient presents with itching and rash to the right upper arm. She states in the past she has had eczema that broke out on the flexor surfaces of her elbow. She thinks that she might have eczema breaking out on her right upper arm that has not come to the surface. She does have multiple abrasions from scratching her skin. No sign of secondary infection at this time. She states that she has tried everything at home. She denies taking Benadryl because she does not have any. - Past Medical History (1) Anxiety and depression Status: Chronic (2) Asthma Status: Chronic (3) Diabetes mellitus, type II Status: Chronic (4) Rheumatoid arthritis Status: Chronic (5) Trigeminal neuritis Status: Chronic Comment: right supra-orbital nerve and right supra-trochlear nerve from ophthalmic branch of trigeminal cranial nerve V Past Medical History - Allergies and Home Meds Allergies/Adverse Reactions: Allergies bee venom protein (honey bee) Allergy (Verified 09/08/19 13:24) Angioedema mold Allergy (Verified 09/08/19 13:24) Itching naproxen Allergy (Verified 09/08/19 13:24) Unknown venom-honey bee [bee venom (honey bee)] Allergy (Verified 09/08/19 13:24) Swelling amoxicillin Adverse Reaction (Verified 09/08/19 13:24) Upset Stomach guaifenesin [From Robitussin] Adverse Reaction (Verified 09/08/19 13:24) Nausea shrimp Adverse Reaction (Verified 09/08/19 13:24) Vomiting Sulfa (Sulfonamide Antibiotics) Adverse Reaction (Verified 09/08/19 13:24) Vomiting Primary Care Physician: Timmy Park MD [Primary Care Provider] - Prior records reviewed: Yes Surgical History: cholecystectomy, - - Septoplasty with submucous resection, repair of internal nasal vestibular stenosis with placement of bilateral cartilage bottle and glass inspector grafts from the nasal septum, cholecystectomy, 3 and 3 C-sections, open reduction right orbital floor blowout fracture using combined approach with periorbital and transantral with titanium placement, mesh reconstruction. Lives: Spouse/ Significant Other Smoking Status: Current every day smoker - Family History Maternal Family History: Family History (This Medical Record has been edited. Action required.) Unknown No problems noted. Family History: Reports: - - Family history is unknown as she is adopted. Additional Family History: She is adopted Paternal Family History: Family History (This Medical Record has been edited. Action required.) Unknown No problems noted. Family History: Reports: - - Family history is unknown as she is adopted. Review of Systems General: Denies: Chills, Fever Eyes: Denies: Visual changes - bilaterally ENT: Denies: Bilateral ear pain Cardiovascular: Denies: Chest pain Respiratory: Denies: Dyspnea, Cough Gastrointestinal: Denies: Abdominal pain, Nausea, Vomiting, Diarrhea Musculoskeletal: Denies: Extremity Pain Skin: Reports: Rash Neurological: Denies: Headache Psych: Denies: Depression Hematologic: Denies: Easy bruising, Easy bleeding Allergy: Denies: Uticaria Physical Exam Vital Signs/Narrative: Vital Signs Temp Pulse Resp BP Pulse Ox 09/19/19 21:14 97.9 F 85 18 128/68 H 98 Inital Vital Signs reviewed: Yes General: Well nourished, Well developed Head: Normocephalic ENT: Moist mucous membranes Neck: Supple Cardiovascular: Regular rate, Regular rhythm Respiratory: No distress, CTA bilaterally Abdomen: Soft, Nontender Extremities: - - Patient has a tattoo noted to the right upper arm. Around this area she is describing itching. The tattoo is been present for many years. There are a few scattered abrasions from her scratching at her skin. No vesicles. No scaling or sign of eczema visible. Neurological: Alert, Oriented x3 Psychological: Normal affect Diagnostic/Tx/Re-eval - Medical Decision Making Patient will be given p.o. Benadryl and cortisone cream to apply topically. She is to follow-up with her primary care doctor. ED Disposition - Plan for ED Patient: Disposition: Home or Assisted Living Diagnosis: Rash Instructions: Self-Care for Skin Rashes Prescriptions: DiphenhydrAMINE [Benadryl] 50 mg PO TID PRN PRN #14 cap PRN Reason: Rash/Topical Irritation Transmission Status: Pending to [facility] Hydrocortisone 2.5% Crm [Hytone] 1 applic TOPICAL TID PRN PRN #1 tube PRN Reason: Rash/Topical Irritation Transmission Status: Pending to [facility] Referrals: Timmy Park MD [Primary Care Provider] - 1 Week if not improving
[2019-09-19] MEDS: Hydrocortisone 2.5% Crm 1 APPLIC TOPICAL (21:44)
[2019-09-19] MEDS: DiphenhydrAMINE 25 MG Capsule 50 MG PO (21:44)
== END 2019-09-19 21:50 | disposition home or self-care (01) ==
LOC: ED 21:42
PROVIDERS: Emergency Provider Emergency Medicine; PCP Internal Medicine
DX: L30.9 Dermatitis, unspecified (principal); F17.210 Nicotine dependence, cigarettes, uncomplicated
CPT/HCPCS: 99283

== ENCOUNTER 2019-09-23 15:30 | Outpatient (RCR) | payer MEDICARE, MEDICAID, SELFPAY ==
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
--- NOTE | 2019-09-23 17:27 | HP.PTDCSUM ---
It has been my pleasure to treat COLLEEN MILIAN referred by KATHLEEN Bhatia, with the diagnosis of Cervical DDD for a total of 7 visit(s). Discharge Date: 09/23/19 Please see the following information for a summary of their discharge status. Subjective: Pt. reports beign 5% better overall. Pt. reports slight reduction in frequency in her pain, but also reports taking a new medication thight might be helping her with her sleeping. Cerv. Spine Pain Intensity (Out of 10): 8 % Improvement: 5 Objective/Function: Pt. reports having some relief with acetomenophen. Pt. reports frequent pain at L side of cervical spine 8/10 currently. Pt. conitinues to have FH posture with flexed thoracic spine. Pt. has tremorring with her movements as well. Pt. reports no overall change in her symptoms. Pt. is able to demonstrate improved posture, but unable to maintain throughout therapy. Due to lack of significant progress I would recommend that she return to [facility] at this point in time for further evaluation. Goal 1:: Patient will be I with HEP and progression (Pt. reports forgetting to do her exercises at home) Goal Progress: Progressing Goal 2:: Patient will maintain proper posture t/o tx session to demo increased scap s/s Goal Progress: Progressing Goal 3:: Patient will report no rivera than 5/10 pain for 1 week (Pt. reprots having constant pain ~8/10 constant). Goal Progress: Not Progressing Plan: Pt. to be DC to physician to determine if further PT is warrant. Discharge Comments: Pt. has made a small amount of progress with ROM and pain reduction. I would recommend that she follow up with her physician for further evaluation. If there are questions or concerns regarding this patient's physical therapy, please feel free to call me at [phone]. Thank you for the referral of this patient. Sincerely, Christos Carbajal DPT
== END 2019-09-23 19:00 | disposition home or self-care (01) ==
LOC: PT 15:30
PROVIDERS: PCP Internal Medicine; Referring Provider Nurse Practitioner Family; Visit Provider Nurse Practitioner Family
DX: M50.30 Other cervical disc degeneration, unspecified cervical region (principal); M47.812 Spondylosis without myelopathy or radiculopathy, cervical region
CPT/HCPCS: 97035; 97110; 97140; 97161; 97164

== ENCOUNTER 2020-03-03 21:45 | Emergency (ER) | payer MEDICARE, MEDICAID, SELFPAY ==
[2020-03-03 21:45] VITALS: BP 122/76; PULSE 94; RESP 16; TEMP 36.4; O2SAT 97; BMI 24.6
--- NOTE | 2020-03-03 22:16 | ED.DCSUM_ITS ---
History of Present Illness Chief Complaint: Fall Informant: Patient Onset: Yesterday Maximum Severity: Mild Narrative: Patient complains she was walking yesterday tripped in front of a store went forward and struck a concrete post, she has some contusion to the left face nasal area, she believes she struck her knee, she was able to get up had no LOC no nausea vomiting no headache no neck pain no numbness weakness paresthesias She broke her glasses in the fall and the store where this occurred wants to have a settlement with her and prior to any settlement she wanted to be checked out. She had prior nasal surgery by [employer] she has no other complaints, she notes she has chronic left knee instability she been told in the past she has a problem with her meniscus she has not yet followed up with orthopedics as instructed Past Medical History - Allergies and Home Meds Allergies/Adverse Reactions: Allergies bee venom protein (honey bee) Allergy (Verified 03/03/20 21:48) Angioedema mold Allergy (Verified 03/03/20 21:48) Itching naproxen Allergy (Verified 03/03/20 21:48) Unknown venom-honey bee [bee venom (honey bee)] Allergy (Verified 03/03/20 21:48) Swelling amoxicillin Adverse Reaction (Verified 03/03/20 21:48) Upset Stomach guaifenesin [From Robitussin] Adverse Reaction (Verified 03/03/20 21:48) Nausea shrimp Adverse Reaction (Verified 03/03/20 21:48) Vomiting Sulfa (Sulfonamide Antibiotics) Adverse Reaction (Verified 03/03/20 21:48) Vomiting Primary Care Physician: Timmy Park MD [Primary Care Provider] - Past Medical History: - - Diabetes includes as above Surgical History: cholecystectomy, - - Septoplasty with submucous resection, repair of internal nasal vestibular stenosis with placement of bilateral cartilage final installer inspector grafts from the nasal septum, cholecystectomy, 3 and 3 C- sections, open reduction right orbital floor blowout fracture using combined approach with periorbital and transantral with titanium placement, mesh reconstruction. Smoking Status: Current every day smoker - Family History Maternal Family History: Family History (This Medical Record has been edited. Action required.) Unknown No problems noted. Family History: Reports: - - Family history is unknown as she is adopted. Additional Family History: She is adopted Paternal Family History: Family History (This Medical Record has been edited. Action required.) Unknown No problems noted. Family History: Reports: - - Family history is unknown as she is adopted. Review of Systems General: Denies: Chills, Fever, Sweats Eyes: Reports: Diplopia, - - Left facial contusion nasal injury. Denies: Visual changes - bilaterally ENT: Denies: Rhinorrhea, Sore throat Cardiovascular: Denies: Chest pain, Palpitations Respiratory: Denies: Dyspnea, Cough, Dyspnea on exertion Gastrointestinal: Denies: Abdominal pain, Nausea, Vomiting, Diarrhea, Melena, Hematochezia Genitourinary: Denies: Dysuria, Hematuria, Frequency Musculoskeletal: Reports: Extremity Pain, - - Left knee discomfort. Denies: Back pain Skin: Denies: Rash, Wounds Neurological: Denies: Headache, Weakness, Numbness Physical Exam Vital Signs/Narrative: Vital Signs Temp Pulse Resp BP Pulse Ox 03/03/20 21:45 97.5 F L 94 16 122/76 H 97 General: Well nourished, Well developed, No Acute Distress Head: Normocephalic, - - Is obvious contusion to the left infraorbital area, her pupils are equal and reactive no signs of entrapment full range of motion very mild nasal discomfort no obvious signs of fracture no bleeding oral cavity unremarkable head nontender neck nontender chest abdomen upper and lower extremities other Eyes: Perrl, EOMI ENT: Moist mucous membranes, No rhinorrhea Neck: Supple, Nontender Cardiovascular: Regular rate, Regular rhythm, No murmurs Respiratory: No distress, CTA bilaterally, Chest nontender Abdomen: Soft, Nontender, Nondistended, Normal bowel sounds Back: Nontender, Normal Inspection Extremities: Nontender, No edema Skin: Normal color, No rash Neurological: Alert, Oriented x3, Cranial nerves II-XII grossly intact, Normal Strength, Normal Sensation Psychological: Normal affect, Normal Mood Diagnostic/Tx/Re-eval - Medical Decision Making I had a long conversation with the patient we discussed all the above in the differential we discussed CT imaging x-rays of the extremities etc. She is able to walk, she has normal extension of the knee there is no signs of obvious fracture dislocation and she assures me she has had knee discomfort ongoing and she has a cane she can use she declined all the above as basically she indicates she can only take Percocet for pain she has no way to see her providers to obtain that, she will follow up with her plastic surgeon and follow-up with orthopedics for the knee issue which she was planning on doing and return for change in symptoms Given 6 Percocet as it is the weekend to use sparingly Home stable Final impression reported fall left facial injury, left knee injury ED Disposition - Plan for ED Patient: Diagnosis: Facial injury left knee injury Instructions: ED Contusion Scalp Sleep Mon, ED CONTUSION Face [w/ Wake Up], ED Mechanical Fall, ED Head Injury with Sleep ..., ED Knee Sprain Prescriptions: Oxycodone HCl/Acetaminophen [Percocet 5/325] 1 tab PO Q6H PRN PRN 3 Days #12 tab PRN Reason: Pain Prescription Printed Referrals: Timmy Park MD [Primary Care Provider] -
[2020-03-03] MEDS: HYDROcodone Bitartrate/Apap 5/325 Tablet PO (22:29)
== END 2020-03-03 22:38 | disposition home or self-care (01) ==
LOC: ED 22:37
PROVIDERS: Emergency Provider Emergency Medicine; PCP Internal Medicine
DX: S05.12XA Contusion of eyeball and orbital tissues, left eye, initial encounter (principal); S89.92XA Unspecified injury of left lower leg, initial encounter; W01.0XXA Fall on same level from slipping, tripping and stumbling without subsequent striking against object, initial encounter; Y93.01 Activity, walking, marching and hiking; Y92.512 Supermarket, store or market as the place of occurrence of the external cause; Y99.9 Unspecified external cause status; E11.9 Type 2 diabetes mellitus without complications; F17.200 Nicotine dependence, unspecified, uncomplicated; Z79.4 Long term (current) use of insulin; Z79.899 Other long term (current) drug therapy
CPT/HCPCS: 99283

== ENCOUNTER → 2020-03-16 15:00 | Outpatient (CLI) | payer MEDICARE, MEDICAID, SELFPAY ==
[2020-03-08 13:50] VITALS: BMI 23.3
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
== END ==
PROVIDERS: PCP Internal Medicine; Referring Provider Surgery; Visit Provider Surgery
DX: S00.12XA Contusion of left eyelid and periocular area, initial encounter (principal); W10.1XXA Fall (on)(from) sidewalk curb, initial encounter
CPT/HCPCS: 70486

== ENCOUNTER → 2020-04-06 12:31 | Outpatient (CLI) | payer MEDICARE, MEDICAID, SELFPAY ==
[2020-03-08 13:50] VITALS: BMI 23.3
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
== END ==
PROVIDERS: PCP Internal Medicine; Referring Provider Surgery; Visit Provider Surgery
DX: M47.812 Spondylosis without myelopathy or radiculopathy, cervical region (principal); G89.29 Other chronic pain; S00.12XA Contusion of left eyelid and periocular area, initial encounter; W10.1XXA Fall (on)(from) sidewalk curb, initial encounter
CPT/HCPCS: 72050

== ENCOUNTER 2021-01-05 20:29 | Emergency (ER) | payer MEDICARE, MEDICAID, SELFPAY ==
[2021-01-05 20:30] VITALS: BP 124/73; PULSE 82; RESP 18; TEMP 36.6; O2SAT 100; BMI 21.4
--- NOTE | 2021-01-05 21:48 | EX.ED.DYSGE1 ---
HPI History of Present Illness Chief Complaint: Allergic Reaction Informant: patient and family Narrative Narrative: 45-year-old female states that she thought she was buying banana peppers and she took him home and cut them up and took a bite. She states that they were extremely hot and started having burning of her lips mouth chin and nose. She states she is very worried about her acid reflux. She is feeling better but still has some burning. She is very upset about the grocery store selling her the wrong banana peppers. [facility] Medical History Acid reflux disease Acquired saddle nose deformity Airway obstruction, anatomic Anxiety Arthritis Asthma Back problem Bilateral carpal tunnel syndrome Bladder infection Chronic headaches Chronic neck pain Contusion of left eyelid and periocular area, initial encounter Contusion of right eyelid and periocular area, sequela Deviated nasal septum Diabetes Fall (on)(from) sidewalk curb, initial encounter Fracture of orbital floor, blow-out, right, closed Fracture of orbital floor, right side, sequela Gallstones Headache Hearing problem History of falling Nasal septal perforation Other specified disorders of nose and nasal sinuses Rheumatoid arteritis Seasonal allergies Vision problems Home Medications albuterol sulfate 1 - 2 puff INHALATION Q4H PRN PRN 06/13/16 [History Last Taken 3 Days Ago ~01/26/19] gabapentin 400 mg PO TID 07/25/16 [History Last Taken 01/29/19] albuterol sulfate 2.5 mg INHALATION Q4H PRN PRN #30 vial 08/05/16 [Rx Last Taken 3 Days Ago ~01/26/19] atorvastatin 10 mg PO QHS 10/10/17 [History Last Taken 1 Day Ago ~01/28/19] pramipexole 0.125 mg PO QHS 10/10/17 [History Last Taken 1 Day Ago ~01/28/19] bupropion HCl 0.5 tab PO BID 02/09/18 [History Last Taken 01/29/19] hydrochlorothiazide 12.5 mg PO DAILY 02/09/18 [History Last Taken 01/29/19] metformin 500 mg PO BIDCM 02/09/18 [History Last Taken 01/29/19] sumatriptan succinate 50 mg PO .X1 PRN PRN 02/09/18 [History Last Taken 4 Days Ago ~01/25/19] rizatriptan 10 mg PO X1 PRN tab 02/17/18 [Rx Last Taken 4 Days Ago ~01/25/19] potassium chloride 8 meq PO DAILY 11/06/18 [History Last Taken 01/29/19] diphenhydramine HCl 50 mg PO TID PRN PRN #14 cap 09/19/19 [Rx Last Taken Unknown] hydrocortisone 1 applic TOPICAL TID PRN PRN #1 tube 09/19/19 [Rx Last Taken Unknown] omeprazole 40 mg capsule,delayed release 40 mg PO DAILY 03/08/20 [History Last Taken Unknown] Allergy/AdvReac Type Severity Reaction Status Date / Time bee venom protein (honey bee) Allergy Angioedema Verified 01/05/21 20:32 mold Allergy Itching Verified 01/05/21 20:32 naproxen Allergy Unknown Verified 01/05/21 20:32 venom-honey bee Allergy Swelling Verified 01/05/21 20:32 [bee venom (honey bee)] aloe vera [From Flexall] AdvReac Severe Nausea/Vom/ Verified 01/05/21 20:32 Diarrhea menthol [From Flexall] AdvReac Severe Nausea/Vom/ Verified 01/05/21 20:32 Diarrhea vitamin E (d-alpha AdvReac Severe Nausea/Vom/ Verified 01/05/21 20:32 tocopherol) Diarrhea [From Flexall] amoxicillin AdvReac Upset Verified 01/05/21 20:32 Stomach guaifenesin [From Robitussin] AdvReac Nausea Verified 01/05/21 20:32 shrimp AdvReac Vomiting Verified 01/05/21 20:32 Sulfa (Sulfonamide AdvReac Vomiting Verified 01/05/21 20:32 Antibiotics) Family History Unknown No problems noted. Surgical History Closed fracture of right orbital floor H/O section History of cholecystectomy History of nasal septoplasty History of nasal surgery Social History Smoking Status: Current every day smoker alcohol intake: former substance use type: does not use what type of physical activity do you participate in: walking seatbelt use: always additional social history: SUN EXPOSURE: FREQUENTLY ROS ROS ED Constitutional Constitutional ED: Denies chills or weight loss Eyes Eyes: Denies change in vision or diplopia ENT ENT ED: Reports other Details: See history of present illness ; Denies ear pain, rhinorrhea or sore throat Cardiovascular Cardiovascular: Denies chest pain, orthopnea, palpitations or racing heartbeat Respiratory/Chest Respiratory/Chest: Denies cough, dyspnea or orthopnea Gastrointestinal Gastrointestinal: Denies abdominal pain, diarrhea, nausea or vomiting Genitourinary Genitourinary ED: Denies dysuria, hematuria or urinary frequency Musculoskeletal Musculoskeletal: Denies arthralgias or myalgias Integumentary Denies abscess or rash Neurologic Neurologic: Denies headache(s) or weakness Psychiatric Psychiatric: Denies anxiety, depression, suicidal ideation or suicidal thoughts Endocrine Endocrinology: Denies polydipsia, polyphagia or polyuria Allergic/Immunologic Allergic/Immunologic ED: Denies mouth swelling, tongue swelling or urticaria EXAM Physical Exam Const Vital Signs: 01/05/21 20:30 Temperature 97.9 F Temperature Source Temporal Pulse Rate 82 Respiratory Rate 18 Blood Pressure 124/73 H Blood Pressure Mean 90 Pulse Ox 100 Oxygen Delivery Method Room Air Positive well nourished and well developed General Appearance ED: well developed HEENT Reports normocephalic, head/scalp atraumatic and moist mucous membranes Eyes PERRL and EOMs intact bilaterally Neck no lymphadenopathy, supple and no JVD Resp normal respiratory effort and clear to auscultation bilaterally Cardio regular rate, regular rhythm and no murmurs GI normal to inspection, nondistended, normoactive bowel sounds and non-tender Palpation: soft Back/Spine no CVA tenderness and normal ROM Extremity normal to inspection General Extremety ED: Negative for edema General Extremity: Negative for edema Neuro oriented x3 and CN's II-XII intact bilaterally Sensorium / Orientation: alert Motor Exam: strength 5/5 throughout Psych mental status grossly normal Mood & Affect: Negative for depressed or tearful Skin no rashes or lesions noted and no wounds MDM MDM MDM Narrative Medical decision making narrative: I advised the patient to try to drink some milk and she can take an extra antacid medication tonight. The symptoms should resolve on their own. Discharge Plan Triage Chief Complaint: Allergic Reaction ED Provider: Krishna Julien Dx/Rx/DC Orders Clinical Impression: Food intolerance in adult Prescriptions: No Action omeprazole 40 mg capsule,delayed release(DR/EC) 40 mg PO DAILY RF: 0 albuterol sulfate 1 INHALER inhaler 1 - 2 puff INHALATION Q4H PRN PRN (Reason: Wheezing) RF: 0 gabapentin 300 MG capsule 400 mg PO TID RF: 0 albuterol sulfate 2.5 MG/3 ML solution for nebulization 2.5 mg INHALATION Q4H PRN PRN (Reason: Dyspnea) Qty: 30 RF: 0 atorvastatin 10 MG tablet 10 mg PO QHS RF: 0 pramipexole 0.125 MG tablet 0.125 mg PO QHS RF: 0 bupropion HCl 75 MG tablet 0.5 tab PO BID RF: 0 metformin 500 MG tablet 500 mg PO BIDCM RF: 0 sumatriptan succinate 50 MG tablet 50 mg PO .X1 PRN PRN (Reason: Migraine Symptoms) RF: 0 hydrochlorothiazide 12.5 MG capsule 12.5 mg PO DAILY RF: 0 rizatriptan 10 MG tablet 10 mg PO X1 PRN (Reason: MIGRAINE SYMPTOMS) RF: 0 potassium chloride 8 MEQ capsule, extended release 8 meq PO DAILY RF: 0 diphenhydramine HCl 25 MG capsule 50 mg PO TID PRN PRN (Reason: Rash/Topical Irritation) Qty: 14 RF: 0 hydrocortisone 1 APPLIC cream 1 applic topical TID PRN PRN (Reason: Rash/Topical Irritation) Qty: 1 RF: 0 Primary Care Provider: Timmy Park Referrals: Timmy Park MD [Primary Care Provider] - As Needed Disposition Disposition: Home, Self Care
== END 2021-01-05 22:08 | disposition home or self-care (01) ==
PROVIDERS: Emergency Provider Emergency Medicine; PCP Internal Medicine
DX: K90.49 Malabsorption due to intolerance, not elsewhere classified (principal); K21.9 Gastro-esophageal reflux disease without esophagitis; E11.9 Type 2 diabetes mellitus without complications; M19.90 Unspecified osteoarthritis, unspecified site; F17.200 Nicotine dependence, unspecified, uncomplicated; Z79.84 Long term (current) use of oral hypoglycemic drugs; Z79.899 Other long term (current) drug therapy
CPT/HCPCS: 99282

== ENCOUNTER → 2021-02-27 10:06 | Outpatient (CLI) | payer MEDICARE, MEDICAID, SELFPAY ==
--- NOTE | 2021-02-27 13:22 | NEURO ---
NCS and/or EMG Patient Report Ordering Doctor: Roberto Holden DATE OF SERVICE: 02/27/21 Sarah presents for electrodiagnostic testing of the upper limbs. She reports numbness and tingling in both hands. Electrodiagnostic findings: Median motor nerve demonstrates normal distal latency, amplitude and conduction velocity bilaterally. Normal ulnar motor response bilaterally. Normal median, ulnar and radial sensory responses. On needle EMG, all muscles tested in the upper limbs showed no evidence of denervation with normal motor unit action potentials. Electrodiagnostic impression: This is a normal electrodiagnostic study of the upper limbs. There is no electrodiagnostic evidence for peripheral neuropathy, including carpal tunnel or cubital tunnel syndrome.
== END ==
PROVIDERS: PCP Internal Medicine; Referring Provider Surgery; Visit Provider Surgery
DX: G56.03 Carpal tunnel syndrome, bilateral upper limbs (principal); M54.2 Cervicalgia; G89.29 Other chronic pain; E11.9 Type 2 diabetes mellitus without complications; F17.200 Nicotine dependence, unspecified, uncomplicated
CPT/HCPCS: 95886; 95913

== ENCOUNTER 2022-02-04 17:15 | Emergency (ER) | payer MEDICARE, MEDICAID, SELFPAY ==
[2022-02-04 17:16] VITALS: BP 119/86; PULSE 101; RESP 18; TEMP 36.2; O2SAT 98; BMI 23.9
--- NOTE | 2022-02-04 17:26 | EX.ED.DYSGE1 ---
HPI History of Present Illness Chief Complaint: Abscess Detail of Chief Complaint: Abscess left inguinal area Informant: patient Onset/Context/Timing Onset: Days Context: Sudden Onset Timing: Continuous Quality: Redness, pain and swelling Location: Left inguinal region Current Severity: Mild Maximum Severity: Moderate Worsened by: Attempt to squeeze the pus out Relieved by: Nothing Associated Symptoms Associated Symptoms: Slightly elevated blood sugar Narrative Narrative: Patient is a 46-year-old woman with history of type 2 diabetes, rheumatoid arthritis, who presents with abscess left inguinal area that started a couple of days ago. She attempted to drain the abscess. She was unsuccessful. She states it was too painful. She denies fever, chills night sweats. Denies a traumatic fever, heart murmur, SBE or being immune suppressed. She is on no immunosuppressive meds for her rheumatoid arthritis. Prior similar symptoms: Yes Recent Illness/Hospitalization: No PFSH [facility] Medical History Acid reflux disease Acquired saddle nose deformity Airway obstruction, anatomic Anxiety Arthritis Asthma Back problem Bilateral carpal tunnel syndrome Bladder infection Chronic headaches Chronic neck pain Contusion of left eyelid and periocular area, initial encounter Contusion of right eyelid and periocular area, sequela Deviated nasal septum Diabetes Fall (on)(from) sidewalk curb, initial encounter Fracture of orbital floor, blow-out, right, closed Fracture of orbital floor, right side, sequela Gallstones Headache Hearing problem History of falling Nasal septal perforation Other specified disorders of nose and nasal sinuses Rheumatoid arteritis Seasonal allergies Vision problems Home Medications albuterol sulfate 90 mcg/actuation aerosol inhaler 1 - 2 puff inhalation Q4H PRN PRN Wheezing 06/13/16 [History Last Taken 3 Days Ago ~01/26/19] gabapentin 300 mg capsule 400 mg PO TID nerve pain 07/25/16 [History Last Taken 01/29/19] albuterol sulfate 2.5 mg/3 mL (0.083 %) solution for nebulization 2.5 mg (3 mL) inhalation Q4H PRN PRN Dyspnea #30 vials 08/05/16 [Rx Last Taken 3 Days Ago ~01/26/19] atorvastatin 10 mg tablet 10 mg PO QHS CHOLESTEROL 10/10/17 [History Last Taken 1 Day Ago ~01/28/19] pramipexole 0.125 mg tablet 0.125 mg PO QHS 10/10/17 [History Last Taken 1 Day Ago ~01/28/19] bupropion HCl 75 mg tablet 0.5 tab PO BID ANXIETY 02/09/18 [History Last Taken 01/29/19] hydrochlorothiazide 12.5 mg capsule 12.5 mg PO DAILY SWELLING 02/09/18 [History Last Taken 01/29/19] metformin 500 mg tablet 500 mg PO BIDCM DIABETES 02/09/18 [History Last Taken 01/29/19] sumatriptan succinate 50 mg tablet 50 mg PO .X1 PRN PRN Migraine Symptoms 02/09/18 [History Last Taken 4 Days Ago ~01/25/19] rizatriptan 10 mg tablet 10 mg PO X1 PRN MIGRAINE SYMPTOMS 02/17/18 [Rx Last Taken 4 Days Ago ~01/25/19] potassium chloride 8 mEq capsule,extended release 8 meq PO DAILY 11/06/18 [History Last Taken 01/29/19] diphenhydramine HCl 25 mg capsule 50 mg PO TID PRN PRN Rash/Topical Irritation #14 caps 09/19/19 [Rx Last Taken Unknown] hydrocortisone 2.5 % topical cream 1 applic topical TID PRN PRN Rash/Topical Irritation #1 tube 09/19/19 [Rx Last Taken Unknown] omeprazole 40 mg capsule,delayed release 40 mg PO DAILY 03/08/20 [History Last Taken Unknown] doxycycline monohydrate 100 mg capsule 100 mg PO BID #10 CAPSULES 02/04/22 [Rx Last Taken Unknown] Allergy/AdvReac Type Severity Reaction Status Date / Time bee venom protein (honey bee) Allergy Angioedema Verified 02/04/22 17:18 mold Allergy Itching Verified 02/04/22 17:18 naproxen Allergy Unknown Verified 02/04/22 17:18 venom-honey bee Allergy Swelling Verified 02/04/22 17:18 [bee venom (honey bee)] aloe vera [From Flexall] AdvReac Severe Nausea/Vom/ Verified 02/04/22 17:18 Diarrhea menthol [From Flexall] AdvReac Severe Nausea/Vom/ Verified 02/04/22 17:18 Diarrhea vitamin E (d-alpha AdvReac Severe Nausea/Vom/ Verified 02/04/22 17:18 tocopherol) Diarrhea [From Flexall] amoxicillin AdvReac Upset Verified 02/04/22 17:18 Stomach guaifenesin [From Robitussin] AdvReac Nausea Verified 02/04/22 17:18 shrimp AdvReac Vomiting Verified 02/04/22 17:18 Sulfa (Sulfonamide AdvReac Vomiting Verified 02/04/22 17:18 Antibiotics) Family History Unknown No problems noted. Surgical History Closed fracture of right orbital floor H/O section History of cholecystectomy History of nasal septoplasty History of nasal surgery Social History (Updated 02/04/22 @ 17:[address] Krzysztof Ann MD) household members: family Smoking Status: Current every day smoker tobacco type: cigarettes alcohol intake: former substance use type: does not use what type of physical activity do you participate in: walking seatbelt use: always additional social history: SUN EXPOSURE: FREQUENTLY ROS ROS ED Constitutional Constitutional ED: Denies chills, fever(s), subjective, sweats or weight loss Eyes Eyes: Denies blurry vision or change in vision Cardiovascular Cardiovascular: Denies palpitations or racing heartbeat Integumentary Reports Abrasions and rash; Denies abscess Neurologic Neurologic: Denies paresthesias or weakness Endocrine Endocrinology: Denies cold intolerance, heat intolerance, polydipsia, polyphagia or polyuria Hematologic/Lymphatic Hematologic/Lymphatic: Reports none EXAM Physical Exam Const Vital Signs: 02/04/22 17:16 02/04/22 17:35 02/04/22 18:18 Temperature 97.2 F L 97.2 F L 97.2 F L Temperature Source Temporal Temporal Temporal Pulse Rate 101 H 101 H 101 H Respiratory Rate 18 18 18 Blood Pressure 119/86 H 119/86 H 119/86 H Blood Pressure Mean 97 97 97 Pulse Ox 98 98 98 Oxygen Delivery Method Room Air Room Air Room Air Positive well nourished and well developed General Appearance ED: well developed and NAD HEENT HEENT Narrative: Head is atraumatic normocephalic. Ears normal. Nares patent. Uvula midline. No erythema or exudate the posterior. There is no deviation tongue with protrusion. Eyes PERRL and EOMs intact bilaterally General Eye ED: Negative for pale conjunctiva or scleral icterus Neck no lymphadenopathy, supple and no JVD Resp normal respiratory effort and clear to auscultation bilaterally Cardio regular rate, regular rhythm, S1 normal heart sound, S2 normal heart sound and no murmurs Narrative: Subcutaneous abscess size of a nickel mid inguinal area with erythema. There is no induration. There is slight warmth. There is no lymphangitis and there is no lymphadenopathy. Back/Spine no CVA tenderness Extremity normal to inspection General Extremety ED: Negative for edema or tenderness General Extremity: Negative for edema Neuro oriented x3, CN's II-XII intact bilaterally and no sensory deficits noted Sensorium / Orientation: alert Motor Exam: strength 5/5 throughout Psych mental status grossly normal Skin Skin Narrative: Abscess previously described MDM MDM MDM Narrative Medical decision making narrative: She has a subcutaneous abscess. She has no systemic symptoms. Blood sugar is slightly elevated from baseline. Plan is I&D. Since she is diabetic and has history of rheumatoid arthritis we will treat with short course of antibiotics. Procedures Other Procedures Procedure(s): The area was anesthetized 1% lidocaine by local infiltration and field block. The area was prepped draped sterile manner. Incision was made using a 15 blade. There was 1 to 2 cc of purulent material noted. Patient was placed on doxycycline for streptococcal staphylococcal coverage since she is diabetic and there is still slight erythema which may represent an early cellulitis. Discharge Plan Triage Chief Complaint: Abscess ED Provider: Krzysztof Ann Dx/Rx/DC Orders Clinical Impression: Abscess or cellulitis of groin Instructions: ED Abscess Incision And Drainage, ED Cellulitis Prescriptions: New doxycycline monohydrate 100 mg capsule 100 mg PO BID Qty: 10 0RF No Action omeprazole 40 mg capsule,delayed release(DR/EC) 40 mg PO DAILY albuterol sulfate 1 INHALER inhaler 1 - 2 puff INHALATION Q4H PRN PRN (Reason: Wheezing) gabapentin 300 MG capsule 400 mg PO TID albuterol sulfate 2.5 MG/3 ML solution for nebulization 2.5 mg INHALATION Q4H PRN PRN (Reason: Dyspnea) Qty: 30 0RF atorvastatin 10 MG tablet 10 mg PO QHS pramipexole 0.125 MG tablet 0.125 mg PO QHS bupropion HCl 75 MG tablet 0.5 tab PO BID metformin 500 MG tablet 500 mg PO BIDCM sumatriptan succinate 50 MG tablet 50 mg PO .X1 PRN PRN (Reason: Migraine Symptoms) hydrochlorothiazide 12.5 MG capsule 12.5 mg PO DAILY rizatriptan 10 MG tablet 10 mg PO X1 PRN (Reason: MIGRAINE SYMPTOMS) 0RF potassium chloride 8 MEQ capsule, extended release 8 meq PO DAILY diphenhydramine HCl 25 MG capsule 50 mg PO TID PRN PRN (Reason: Rash/Topical Irritation) Qty: 14 0RF hydrocortisone 1 APPLIC cream 1 applic topical TID PRN PRN (Reason: Rash/Topical Irritation) Qty: 1 0RF Primary Care Provider: Timmy Park Referrals: Timmy Park MD [Primary Care Provider] - 2 Days for wound check Disposition Disposition: Home, Self Care
[2022-02-04] MEDS: Lidocaine 1% (20 ml mdv) 20 ML Vial INFILT (17:31)
[2022-02-04] MEDS: Doxycycline 100 MG CAPSULE PO (17:31)
[2022-02-04 17:35] VITALS: BP 119/86; PULSE 101; RESP 18; TEMP 36.2; O2SAT 98
[2022-02-04 18:18] VITALS: BP 119/86; PULSE 101; RESP 18; TEMP 36.2; O2SAT 98
== END 2022-02-04 19:00 | disposition home or self-care (01) ==
PROVIDERS: Emergency Provider Emergency Medicine; PCP Internal Medicine; Visit Provider Emergency Medicine
DX: L02.214 Cutaneous abscess of groin (principal); M06.9 Rheumatoid arthritis, unspecified; E11.9 Type 2 diabetes mellitus without complications; F17.210 Nicotine dependence, cigarettes, uncomplicated
CPT/HCPCS: 10060; 99283

== ENCOUNTER → 2022-05-12 | Outpatient (CLI) | payer MEDICARE, MEDICAID, SELFPAY ==
--- NOTE | 2022-05-12 17:10 | RAD_ITS ---
INDICATION: fall at home and hit her nose EXAMINATION/TECHNIQUE: X-RAY - XR Nasal Bones Min 3 Views COMPARISON: None. FINDINGS: SOFT TISSUES: No soft tissue swelling or gas. No radiopaque foreign body. BONES/TMJs: No fracture or subluxation. No sclerotic or destructive changes observed. There is normal alignment of the nasal skeleton including nasal septum. There are remote postoperative changes of mesh repair of the floor of the RIGHT orbit. RAD/Nasal Bones min 3 Views IMPRESSION: 1. No nasal fractures noted. 2. Previous postoperative changes/mesh repair of the floor the RIGHT orbit. Electronically Signed: Roldan Belcher MD at 21:40 EST ,
== END | disposition home or self-care (01) ==
PROVIDERS: PCP Internal Medicine; Referring Provider Surgery; Visit Provider Surgery
DX: S00.33XA Contusion of nose, initial encounter (principal); W19.XXXA Unspecified fall, initial encounter; Y92.009 Unspecified place in unspecified non-institutional (private) residence as the place of occurrence of the external cause
CPT/HCPCS: 70160

== ENCOUNTER 2022-06-06 19:10 | Emergency (ER) | payer MEDICARE, MEDICAID, SELFPAY ==
[2022-06-06 19:12] VITALS: BP 127/68; PULSE 90; RESP 16; TEMP 36.6; O2SAT 97; BMI 25.1
--- NOTE | 2022-06-06 19:23 | EDS_ITS ---
HPI <BONITA Lau - Last Filed: 06/06/22 19:38> History of Present Illness Chief Complaint: Edema Narrative Narrative: Patient is here with bilateral foot swelling. She has had swelling off-and-on for a long time but usually resolves after couple days. It's been going on for about a week. She takes HCTZ 12.5 mg once a day and doubled up on the dose but it has not helped. She denies history of CHF, CKD, or liver disease. She has no chest pain or shortness of breath. No skin changes of the extremities. PFS <BONITA Lau - Last Filed: 06/06/22 19:38> [facility] Medical History Acid reflux disease Acquired saddle nose deformity Airway obstruction, anatomic Anxiety Arthritis Asthma Back problem Bilateral carpal tunnel syndrome Bladder infection Chronic GERD Chronic headaches Chronic neck pain Contusion of left eyelid and periocular area, initial encounter Contusion of nose, initial encounter Contusion of right eyelid and periocular area, sequela Deviated nasal septum Diabetes Dysphagia Fall (on)(from) sidewalk curb, initial encounter Fall at home Fracture of orbital floor, blow-out, right, closed Fracture of orbital floor, right side, sequela Gallstones Headache Hearing problem History of falling Nasal septal perforation Nausea and vomiting Other specified disorders of nose and nasal sinuses Rheumatoid arteritis Seasonal allergies Vision problems Home Medications albuterol sulfate 90 mcg/actuation aerosol inhaler 1 - 2 puff inhalation Q4H PRN PRN Wheezing 06/13/16 [History Last Taken 3 Days Ago ~01/26/19] gabapentin 300 mg capsule 400 mg PO TID nerve pain 07/25/16 [History Last Taken 01/29/19] albuterol sulfate 2.5 mg/3 mL (0.083 %) solution for nebulization 2.5 mg (3 mL) inhalation Q4H PRN PRN Dyspnea #30 vials 08/05/16 [Rx Last Taken 3 Days Ago ~01/26/19] atorvastatin 10 mg tablet 10 mg PO QHS CHOLESTEROL 10/10/17 [History Last Taken 1 Day Ago ~01/28/19] pramipexole 0.125 mg tablet 0.125 mg PO QHS 07/14/18 [History Last Taken 1 Day Ago ~01/28/19] hydrochlorothiazide 12.5 mg capsule 12.5 mg PO DAILY SWELLING 02/09/18 [History Last Taken 01/29/19] rizatriptan 10 mg tablet 10 mg PO X1 PRN MIGRAINE SYMPTOMS 02/17/18 [Rx Last Taken 4 Days Ago ~01/25/19] potassium chloride 8 mEq capsule,extended release 8 meq PO DAILY 11/06/18 [History Last Taken 01/29/19] diphenhydramine HCl 25 mg capsule 50 mg PO TID PRN PRN Rash/Topical Irritation #14 caps 09/19/19 [Rx Last Taken Unknown] hydrocortisone 2.5 % topical cream 1 applic topical TID PRN PRN Rash/Topical Irritation #1 tube 09/19/19 [Rx Last Taken Unknown] omeprazole 40 mg capsule,delayed release 40 mg PO DAILY 03/08/20 [History Last Taken Unknown] buspirone 5 mg tablet 5 mg PO TID 04/29/22 [History Last Taken Unknown] dulaglutide 0.75 mg/0.5 mL subcutaneous pen injector (Trulicity) 0.75 mg subcut QWEEK 04/29/22 [History Last Taken Unknown] dupilumab 300 mg/2 mL subcutaneous pen injector (Dupixent) 300 mg subcut Q2W 04/29/22 [History Last Taken Unknown] empagliflozin 25 mg tablet (Jardiance) 25 mg PO DAILY 04/29/22 [History Last Taken Unknown] escitalopram oxalate 20 mg tablet 20 mg PO DAILY 04/29/22 [History Last Taken Unknown] levonorgestrel 21 mcg/24 hours (8 yrs) 52 mg intrauterine device (Mirena) 1 device intrauterine ONCE 04/29/22 [History Last Taken Unknown] ondansetron HCl 4 mg tablet 4 mg PO Q8H 04/29/22 [History Last Taken Unknown] Allergy/AdvReac Type Severity Reaction Status Date / Time bee venom protein (honey bee) Allergy Angioedema Verified 06/06/22 19:13 mold Allergy Itching Verified 06/06/22 19:13 naproxen Allergy Unknown Verified 06/06/22 19:13 venom-honey bee Allergy Swelling Verified 06/06/22 19:13 [bee venom (honey bee)] aloe vera [From Flexall] AdvReac Severe Nausea/Vom/ Verified 06/06/22 19:13 Diarrhea menthol [From Flexall] AdvReac Severe Nausea/Vom/ Verified 06/06/22 19:13 Diarrhea vitamin E (d-alpha AdvReac Severe Nausea/Vom/ Verified 06/06/22 19:13 tocopherol) Diarrhea [From Flexall] amoxicillin AdvReac Upset Verified 06/06/22 19:13 Stomach guaifenesin [From Robitussin] AdvReac Nausea Verified 06/06/22 19:13 shrimp AdvReac Vomiting Verified 06/06/22 19:13 Sulfa (Sulfonamide AdvReac Vomiting Verified 06/06/22 19:13 Antibiotics) Family History Unknown No problems noted. Surgical History Closed fracture of right orbital floor H/O section History of cholecystectomy History of nasal septoplasty History of nasal surgery Social History household members: family Smoking Status: Current every day smoker tobacco type: cigarettes alcohol intake: former substance use type: does not use what type of physical activity do you participate in: walking seatbelt use: always additional social history: SUN EXPOSURE: FREQUENTLY ROS <BONITA Lau - Last Filed: 06/06/22 19:38> ROS ED ROS Narrative Constitutional: Negative for fever, chills, malaise. CVS: Negative for palpitations, chest pain, syncope. Respiratory: Negative for shortness of breath, cough, orthopnea. Neuro: Negative for motor/sensory dysfunction. Skin: Negative for rash, abscess, or wound. Musc: Positive for foot swelling. No trauma. Heme: Negative for easy bruising, bleeding, lymphadenopathy. EXAM <BONITA Lau - Last Filed: 06/06/22 19:38> Physical Exam Narrative Exam Narrative: CONST: Patient sitting in no acute distress. EYES: Normal inspection. NECK: Normal inspection. RESP: No respiratory distress, CTAB. CVS: Regular rate and rhythm, no murmur, no gallop. SKIN: Color normal, no rash, warm, dry, intact. EXTREMITIES: Trace pitting edema of both feet. Compartments are soft, no calf tenderness or cords. Full range of motion, normal strength and sensation, 2+ DP pulses. NEURO: Oriented x4. PSYCH: Normal affect. Const Vital Signs: 06/06/22 19:12 06/06/22 19:39 Temperature 97.9 F Temperature Source Oral Pulse Rate 90 Respiratory Rate 16 Respiratory Effort Normal Non-Labored Respiratory Pattern Normal Blood Pressure 127/68 H Blood Pressure Mean 87 Pulse Ox 97 Oxygen Delivery Method Room Air <Dr. Krzysztof Ann MD - Last Filed: 06/06/22 20:18> Physical Exam Const Vital Signs: 06/06/22 19:12 06/06/22 19:39 Temperature 97.9 F Temperature Source Oral Pulse Rate 90 Respiratory Rate 16 Respiratory Effort Normal Non-Labored Respiratory Pattern Normal Blood Pressure 127/68 H Blood Pressure Mean 87 Pulse Ox 97 Oxygen Delivery Method Room Air MDM <BONITA Lau - Last Filed: 06/06/22 19:38> [facility] MDM Narrative Medical decision making narrative: Patient presents with trace pedal edema both feet. He has had this off and on for over a year./Trace pitting edema on exam with no overlying skin. Neurovascularly intact. I suspect she has dependent edema as it improves after sleeping with elevation of the legs. She has minimal activity and just walks around her house. I advised her to use compression hose, increase activity, and follow-up with her doctor next week. She was discharged in stable condition. Test considered but not ordered: This is a chronic issue no trace dependent edema I do not think she needs emergent blood work. Primary care can check labs, renal function etc. She has no CP/SOB and lungs are clear I do not think this is CHF. I have personally performed a face to face assessment of the patient and have reviewed the SHI Note. I performed a substantive portion of the visit including all aspects of the following. My mendez findings include: History is remarkable for minimal activity. Patient gets up to use the restroom, go to the kitchen and walk to the neighbors once a day. She denies or thopnea or PND. Denies chest pain. Denies dyspnea or dyspnea on exertion. She states she not able to walk much because of back problems. Patient reports her swelling is less in the morning which is consistent with dependent edema Exam is patient has pitting edema of the right and left leg and right and left foot. Heart is regular without murmur, gallop or rub. Lungs are clear to auscultation. There is no JVD. There is no pedal jugular reflux. 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 Patient was instructed if she is sitting she needs to elevate her toes above her nose. Recommended purchasing compressive hose. Other additions or changes: [None] <Dr. Krzysztof Ann MD - Last Filed: 06/06/22 20:18> [facility] MDM Narrative Medical decision making narrative: I have personally performed a face to face assessment of the patient and have reviewed the SHI Note. I performed a substantive portion of the visit including all aspects of the following. My mendez findings include: History is remarkable for minimal activity. Patient gets up to use the restroom, go to the kitchen and walk to the neighbors once a day. She denies orthopnea or PND. Denies chest pain. Denies dyspnea or dyspnea on exertion. She states she not able to walk much because of back problems. Patient reports her swelling is less in the morning which is consistent with dependent edema Exam is patient has pitting edema of the right and left leg and right and left foot. Heart is regular without murmur, gallop or rub. Lungs are clear to auscultation. There is no JVD. There is no pedal jugular reflux. 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 Patient was instructed if she is sitting she needs to elevate her toes above her nose. Recommended purchasing compressive hose. Other additions or changes: [None] Discharge Plan Triage Chief Complaint: Edema ED Midlevel Provider: Nitza Rondon ED Provider: Krzysztof Ann Dx/Rx/DC Orders Clinical Impression: Bilateral leg edema Instructions: ED Peripheral Edema, Bilateral Prescriptions: No Action omeprazole 40 mg capsule,delayed release(DR/EC) 40 mg PO DAILY ondansetron HCl 4 mg tablet 4 mg PO Q8H Trulicity 0.75 mg/0.5 mL pen injector 0.75 mg subcut QWEEK Jardiance 25 mg tablet 25 mg PO DAILY escitalopram oxalate 20 mg tablet 20 mg PO DAILY buspirone 5 mg tablet 5 mg PO TID Dupixent Pen 300 mg/2 mL pen injector 300 mg subcut Q2W Mirena 21 mcg/24 hours (8 yrs) 52 mg intrauterine device 1 device intrauterine ONCE Rx Instructions: as a single dose albuterol sulfate 1 INHALER inhaler 1 - 2 puff INHALATION Q4H PRN PRN (Reason: Wheezing) gabapentin 300 MG capsule 400 mg PO TID albuterol sulfate 2.5 MG/3 ML solution for nebulization 2.5 mg INHALATION Q4H PRN PRN (Reason: Dyspnea) Qty: 30 0RF atorvastatin 10 MG tablet 10 mg PO QHS pramipexole 0.125 MG tablet 0.125 mg PO QHS hydrochlorothiazide 12.5 MG capsule 12.5 mg PO DAILY rizatriptan 10 MG tablet 10 mg PO X1 PRN (Reason: MIGRAINE SYMPTOMS) 0RF potassium chloride 8 MEQ capsule, extended release 8 meq PO DAILY diphenhydramine HCl 25 MG capsule 50 mg PO TID PRN PRN (Reason: Rash/Topical Irritation) Qty: 14 0RF hydrocortisone 1 APPLIC cream 1 applic topical TID PRN PRN (Reason: Rash/Topical Irritation) Qty: 1 0RF Primary Care Provider: Timmy Park Referrals: Timmy Park MD [Primary Care Provider] - Activity Restrictions/Additional Instructions: Buy tight compression stockings and wear them all day. Increase your activity and walking and when you are resting elevate your legs. Follow-up with your doctor next week. Disposition Disposition: Home, Self Care Discharge Date/Time: 06/06/22 19:39
== END 2022-06-06 19:39 | disposition home or self-care (01) ==
PROVIDERS: Emergency Provider Emergency Medicine; PCP Internal Medicine; Visit Provider Emergency Medicine
DX: R60.0 Localized edema (principal); F17.210 Nicotine dependence, cigarettes, uncomplicated
CPT/HCPCS: 99282

== ENCOUNTER → 2022-07-03 | Outpatient (CLI) | payer MEDICARE, MEDICAID, SELFPAY ==
--- NOTE | 2022-07-03 18:55 | CT_ITS ---
STUDY: CT FACIAL BONES WITHOUT CONTRAST REASON FOR EXAM: Female, 46 years old. Evaluated the structural anatomy of the nose. Nasal trauma. RADIATION DOSAGE (If Supplied By Facility): CTDIvol = ( 29.38 ) mGy, DLP = ( 496.03 ) mGycm TECHNIQUE: The patient was scanned in a multi detector CT scanner. Sagittal and coronal images were reconstructed. Individualized dose optimization techniques were used for this CT. COMPARISON: None. FINDINGS: Normal soft tissue structures. There is evidence of prior open reduction and internal fixation of the anterior aspect of the right maxillary sinus and medial right orbital wall. This is unchanged. Normal nasal bones and anterior nasal spine. Normal facial bones. There is no demonstrated fracture. Normal visualized paranasal sinuses. CT/Sinus/Facial Bone IMPRESSION: Prior ORIF of the anterior right maxillary wall and floor of the right orbit. Electronically Signed: Saul Colon MD at 14:32 EDT ,
== END | disposition home or self-care (01) ==
PROVIDERS: PCP Internal Medicine; Referring Provider Nurse Practitioner Family; Visit Provider Nurse Practitioner Family
DX: J34.89 Other specified disorders of nose and nasal sinuses (principal); E11.9 Type 2 diabetes mellitus without complications; S02.31XS Fracture of orbital floor, right side, sequela; J34.2 Deviated nasal septum; S00.33XS Contusion of nose, sequela; W19.XXXS Unspecified fall, sequela; Y92.009 Unspecified place in unspecified non-institutional (private) residence as the place of occurrence of the external cause; M95.0 Acquired deformity of nose; F17.200 Nicotine dependence, unspecified, uncomplicated
CPT/HCPCS: 70486

== ENCOUNTER 2022-07-29 11:33 | Day surgery (SDC) | payer MEDICARE, MEDICAID, SELFPAY ==
[2022-07-29] VITALS (7 sets, daily range): BP systolic 106–123; BP diastolic 69–77; PULSE 75–92; RESP 14–18; TEMP 36.6–36.7; O2SAT 98–99; BMI 27.0
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
[2022-07-29] MEDS: Lactated Ringers 1,000 ML 15 ML IV (12:06)
--- NOTE | 2022-07-29 13:00 | EGD_PTH ---
PATIENT: COLLEEN MILIAN LOC: EN U#:[id number] AGE/SX: 46/F ROOM: RE07/29/[address]: Dr. Jose Miguel Monteiro DO : 1975 BED: DIS: 07/29/2022 SPEC #: [id number] RECD: 07/29/22 18:51 STATUS: REBECCA NUBIA #: [id number] KAJAL: 07/29/22 13:[address]: Jose Miguel Monteiro DEPT: SURGICAL PATHOLOGY RECD BY: Breanna Manjarrez ENTERED: 07/30/22 07:41 SP TYPE: EGD [facility] DR: Dr. Timmy Park MD Tissues: A - Esophagus, NOS B - Esophagus, NOS Procedures: Special Stain Group II Surgery Specimen Level IV Alcian Blue/PAS (control) HEADER OPERATION: EGD ([facility] [place]) with biopsies and dilatation PRE-OP DIAGNOSIS: Dysphagia TISSUE SUBMITTED: A ? Proximal esophagus papilloma biopsy, B ? Distal esophagus biopsy MICROSCOPIC DIAGNOSIS A. Proximal esophagus, biopsy: Squamous papilloma. B. Distal esophagus, biopsy: Gastroesophageal junctional mucosa with mild chronic inflammation. No evidence of goblet cell metaplasia. See comment. AM:cameron 07/31/2022 COMMENT B. Alcian blue/PAS stain with matched control supports the above diagnosis. MICROSCOPIC DESCRIPTION Slides are reviewed. GROSS DESCRIPTION A - Received in fixative is one container labeled with the patient's name and designated proximal esophagus papilloma. The specimen consists of one irregular fragment of light loya soft tissue that measures 0.3 x 0.3 x 0.1 cm. The specimen is totally submitted in one cassette. B - Received in fixative is one container labeled with the patient's name and designated distal esophagus biopsy. The specimen consists of two irregular fragments of light loya soft tissue that in aggregate measure 0.6 x 0.3 x 0.1 cm. The specimen is totally submitted in one cassette. / SJ:cameron 07/30/2022 TC:3 CPT: 99699 x2, 59490
--- NOTE | 2022-07-29 14:42 | OP.EGD_ITS ---
Patient Name: Sarah Guillen Procedure Date: 07/29/2022 2:15 PM Date of : 1975 Age: 46 Procedure: Upper GI endoscopy Indications: Dysphagia Providers: Jose Miguel Monteiro DO Medicines: Monitored Anesthesia Care Patient Profile: This is a 46 year old female. Refer to note in patient chart for documentation of history and physical. Patient has symptoms of dysphagia with both liquids and solids and acute nausea. Complications: No immediate complications. Procedure: Pre-Anesthesia Assessment: - Prior to the procedure, a History and Physical was performed, and patient medications and allergies were reviewed. The patient is competent. The risks and benefits of the procedure and the sedation options and risks were discussed with the patient. All questions were answered and informed consent was obtained. Patient identification and proposed procedure were verified by the physician. Mental Status Examination: normal. CV Examination: normal. Prophylactic Antibiotics: The patient does not require prophylactic antibiotics. Prior Anticoagulants: The patient has taken no previous anticoagulant or antiplatelet agents. After reviewing the risks and benefits, the patient was deemed in satisfactory condition to undergo the procedure. The anesthesia plan was to use monitored anesthesia care (MAC). Immediately prior to administration of medications, the patient was re-assessed for adequacy to receive sedatives. The heart rate, respiratory rate, oxygen saturations, blood pressure, adequacy of pulmonary ventilation, and response to care were monitored throughout the procedure. The physical status of the patient was re-assessed after the procedure. After obtaining informed consent, the endoscope was passed under direct vision. Throughout the procedure, the patient's blood pressure, pulse, and oxygen saturations were monitored continuously. The gastroscope was introduced through the mouth, and advanced to the second part of duodenum. The upper GI endoscopy was accomplished without difficulty. The patient tolerated the procedure well. Scope In: 2:26:11 PM Scope Out: 2:32:22 PM Total Procedure Duration Time 0 hours 6 minutes 11 seconds Findings: One 3 mm polyp with no bleeding was found 19 to 20 cm from the incisors. The polyp was removed with a cold snare. Resection and retrieval were complete. Verification of patient identification for the specimen was done. Estimated blood loss was minimal. Also, there was some thickening seen on bilateral vocal cords. One benign-appearing, intrinsic stenosis was found 18 to 20 cm from the incisors. This stenosis was moderately severe and. The stenosis was traversed. A guidewire was placed and the scope was withdrawn. Dilation was performed with a Savary dilator with no resistance at 60 Fr. The dilation site was examined and showed complete resolution of luminal narrowing. Estimated blood loss was minimal. The Z-line was irregular and was found 36 cm from the incisors. Biopsies were taken with a cold forceps for histology. Verification of patient identification for the specimen was done. Estimated blood loss was minimal. A small hiatal hernia was present. No other significant abnormalities were identified in a careful examination of the stomach. The second portion of the duodenum was normal. Impression: - Esophageal polyp(s) were found. Resected and retrieved. - Benign-appearing esophageal stenosis. Dilated. - Z-line irregular, 36 cm from the incisors. Biopsied. - Small hiatal hernia. - Normal second portion of the duodenum. Recommendation: - Discharge patient to home. - Resume previous diet. - Continue present medications. - Await pathology results. Procedure Code(s): --- Professional --- 30171, Esophagogastroduodenoscopy, flexible, transoral; with removal of tumor(s), polyp(s), or other lesion(s) by snare technique 08751, Esophagogastroduodenoscopy, flexible, transoral; with insertion of guide wire followed by passage of dilator(s) through esophagus over guide wire 89998, 59, Esophagogastroduodenoscopy, flexible, transoral; with biopsy, single or multiple CPT copyright 2017 [employer]. All rights reserved. The codes documented in this report are preliminary and upon land inspector review may be revised to meet current compliance requirements. Jose Miguel Monteiro DO 07/29/2022 2:42:13 PM This report has been signed electronically. Number of Addenda: 0 Note Initiated On: 07/29/2022 2:15 PM
--- NOTE | 2022-07-29 14:43 | OP.CCLET_ITS ---
07/29/2022 Timmy Park [address] [place] [address] Re : Upper GI endoscopy procedure for Sarah Guillen Dear Dr. Park This procedure was performed on Friday, July 29, 2022. My impressions and recommendations are as follows: Impressions : - Esophageal polyp(s) were found. Resected and retrieved. - Benign-appearing esophageal stenosis. Dilated. - Z-line irregular, 36 cm from the incisors. Biopsied. - Small hiatal hernia. - Normal second portion of the duodenum. Recommendations : - Discharge patient to home. - Resume previous diet. - Continue present medications. - Await pathology results. My findings are described in the full procedure note, which is enclosed. If I can be of further assistance, please feel free to contact me at . Sincerely, Jose Miguel Monteiro, 07/29/2022 2:42:13 PM This report has been signed electronically.
== END 2022-07-29 15:19 | disposition home or self-care (01) ==
LOC: EN 11:34 → AC 11:37
PROVIDERS: PCP Internal Medicine; Referring Provider Internal Medicine Gastroenterology; Visit Provider Internal Medicine Gastroenterology
PROC: 0DJ08ZZ Inspection of Upper Intestinal Tract, Via Natural or Artificial Opening Endoscopic (ICD-10-PCS; CPT 43235; principal; 2022-07-29 12:55)
DX: D13.0 Benign neoplasm of esophagus (principal); J44.9 Chronic obstructive pulmonary disease, unspecified; E11.9 Type 2 diabetes mellitus without complications; K22.2 Esophageal obstruction; K44.9 Diaphragmatic hernia without obstruction or gangrene; K21.9 Gastro-esophageal reflux disease without esophagitis; I10 Essential (primary) hypertension; F17.200 Nicotine dependence, unspecified, uncomplicated; F10.90 Alcohol use, unspecified, uncomplicated; Z90.49 Acquired absence of other specified parts of digestive tract; Z79.85 Long-term (current) use of injectable non-insulin antidiabetic drugs; Z79.899 Other long term (current) drug therapy
CPT/HCPCS: 43251; 43248; 43239; 88305; 88313; J7120; C1769; J2405

== ENCOUNTER 2022-09-13 22:09 | Emergency (ER) | payer MEDICARE, MEDICAID, SELFPAY ==
[2022-09-13 22:10] VITALS: BP 114/90; PULSE 88; RESP 15; TEMP 36.2; O2SAT 99; BMI 21.9
--- NOTE | 2022-09-13 22:21 | EX.ED.DYSGE1 ---
HPI History of Present Illness Chief Complaint: Abscess Narrative Narrative: 46-year-old female past medical history of diabetes mellitus type 2 presents with inguinal abscess that she has had for about a month. She states that on occasion she will squeeze it when it gets larger, and possible drain. The area will go back down with the swelling, but then it reaccumulates. She has pain with walking and movement of her right leg. She denies any fevers or chills, no current nausea or vomiting, although she states she gets nauseated on occasion. She states that she squeezed the area a few days ago so last week, and only blood came out. She states she usually has her boils and abscesses lanced. She has not followed up with a primary care provider. She presents with pain in the right inguinal area secondary to an abscess. [facility] Medical History Acid reflux disease Acquired saddle nose deformity Airway obstruction, anatomic Alcohol use Anxiety Arthritis Asthma Back pain Back problem Bilateral carpal tunnel syndrome Bladder infection Chronic GERD Chronic headaches Chronic neck pain Contusion of left eyelid and periocular area, initial encounter Contusion of nose, initial encounter Contusion of right eyelid and periocular area, sequela COPD (chronic obstructive pulmonary disease) Depression Deviated nasal septum Diabetes Difficulty swallowing Dysphagia Fall (on)(from) sidewalk curb, initial encounter Fall at home Fracture of orbital floor, blow-out, right, closed Fracture of orbital floor, right side, sequela Gallstones Gastric reflux Headache Hearing problem History of edema History of falling History of IBS History of pain when walking Hypertension Injury of head and neck Marijuana use Migraine headache Nasal septal perforation Nausea and vomiting Other specified disorders of nose and nasal sinuses Rheumatoid arteritis Seasonal allergies Shortness of breath on exertion Smoker Vision problems Home Medications albuterol sulfate 90 mcg/actuation aerosol inhaler 1 - 2 puff inhalation Q4H PRN PRN Wheezing 06/13/16 [History Last Taken 3 Days Ago ~01/26/19] gabapentin 300 mg capsule 400 mg PO TID nerve pain 07/25/16 [History Last Taken 01/29/19] albuterol sulfate 2.5 mg/3 mL (0.083 %) solution for nebulization 2.5 mg (3 mL) inhalation Q4H PRN PRN Dyspnea #30 vials 08/05/16 [Rx Last Taken 3 Days Ago ~01/26/19] atorvastatin 10 mg tablet 40 mg PO QHS CHOLESTEROL 10/10/17 [History Last Taken 1 Day Ago ~01/28/19] hydrochlorothiazide 12.5 mg capsule 12.5 mg PO DAILY SWELLING 02/09/18 [History Last Taken 01/29/19] rizatriptan 10 mg tablet 10 mg PO X1 PRN MIGRAINE SYMPTOMS 02/17/18 [Rx Last Taken 4 Days Ago ~01/25/19] diphenhydramine HCl 25 mg capsule 50 mg PO TID PRN PRN Rash/Topical Irritation #14 caps 09/19/19 [Rx Last Taken Unknown] hydrocortisone 2.5 % topical cream 1 applic topical TID PRN PRN Rash/Topical Irritation #1 tube 09/19/19 [Rx Last Taken Unknown] buspirone 5 mg tablet 5 mg PO TID PRN Anxiety 04/29/22 [History Last Taken Unknown] dulaglutide 0.75 mg/0.5 mL subcutaneous pen injector (Trulicity) 1.5 mg subcut QWEEK 04/29/22 [History Last Taken Unknown] dupilumab 300 mg/2 mL subcutaneous pen injector (Dupixent) 300 mg subcut Q2W 04/29/22 [History Last Taken Unknown] empagliflozin 25 mg tablet (Jardiance) 25 mg PO DAILY 04/29/22 [History Last Taken Unknown] escitalopram oxalate 20 mg tablet 20 mg PO DAILY 04/29/22 [History Last Taken Unknown] levonorgestrel 21 mcg/24 hours (8 yrs) 52 mg intrauterine device (Mirena) 1 device intrauterine ONCE 04/29/22 [History Last Taken Unknown] ondansetron HCl 4 mg tablet 4 mg PO Q8H 04/29/22 [History Last Taken Unknown] baclofen 10 mg tablet 10 mg PO PRN PRN MUSCLE RELAX 07/23/22 [History Last Taken Unknown] ibuprofen 400 mg tablet 400 mg PO Q6H PRN Pain 07/23/22 [History Last Taken Unknown] pantoprazole 40 mg tablet,delayed release 40 mg PO DAILY 07/23/22 [History Last Taken Unknown] pramipexole 0.25 mg tablet See Rx Instructions .Route .COMPLEX 07/23/22 [History Last Taken Unknown] primidone 50 mg tablet 200 mg PO QHS 07/23/22 [History Last Taken Unknown] famotidine 20 mg tablet 20 mg PO QHS #90 tabs 08/27/22 [Rx Last Taken Unknown] clindamycin HCl 300 mg capsule 300 mg PO Q8H 7 days #21 caps 09/13/22 [Rx Last Taken Unknown] Allergy/AdvReac Type Severity Reaction Status Date / Time bee venom protein (honey bee) Allergy Angioedema Verified 07/29/22 12:01 mold Allergy Itching Verified 07/29/22 12:01 naproxen Allergy Unknown Verified 07/29/22 12:01 venom-honey bee Allergy Swelling Verified 07/29/22 12:01 [bee venom (honey bee)] aloe vera [From Flexall] AdvReac Severe Nausea/Vom/ Verified 07/29/22 12:01 Diarrhea menthol [From Flexall] AdvReac Severe Nausea/Vom/ Verified 07/29/22 12:01 Diarrhea vitamin E (d-alpha AdvReac Severe Nausea/Vom/ Verified 07/29/22 12:01 tocopherol) Diarrhea [From Flexall] amoxicillin AdvReac Upset Verified 07/29/22 12:01 Stomach guaifenesin [From Robitussin] AdvReac Nausea Verified 07/29/22 12:01 shrimp AdvReac Vomiting Verified 07/29/22 12:01 Sulfa (Sulfonamide AdvReac Vomiting Verified 07/29/22 12:01 Antibiotics) Family History Unknown No problems noted. Surgical History Closed fracture of right orbital floor H/O section History of cholecystectomy History of nasal septoplasty History of nasal surgery Hx of tubal ligation Social History household members: family Smoking Status: Current every day smoker tobacco type: cigarettes alcohol intake: former substance use type: marijuana what type of physical activity do you participate in: walking seatbelt use: always additional social history: SUN EXPOSURE: FREQUENTLY ROS ROS ED ROS Narrative Constitutional: No fever, no chills. HEENT: No sore throat. No neck pain. No loss of vision. No rhinorrhea. Cardiovascular: No chest pain. No palpitations. No pedal edema. Respiratory: No cough, no shortness of breath. Abdominal: No abdominal pain. No nausea. No vomiting. Genitourinary: No dysuria. No hematuria. Musculoskeletal: No myalgias. No arthralgias. Neurologic: No headaches. No dizziness. No lightheadedness. Skin: No rash. No change in color. Abscess to right inguinal area with intermittent swelling and drainage. Psychiatric: No depression. No anxiety. EXAM Physical Exam Narrative Exam Narrative: Afebrile. Vital signs noted. Nontoxic-appearing. HEENT: Normocephalic. Atraumatic. PERRL, EOMI. Neck soft and supple. No point tenderness or step off. Cardiovascular: Regular rate and rhythm. No murmurs, rubs, or gallops appreciated. Respiratory: No tachypnea. Lungs clear to auscultation bilaterally. Gastrointestinal: Abdomen soft, nontender, with normoactive bowel sounds. No rebound or guarding. Neurological: Awake. Alert. Nonfocal, nonlateralizing. Skin: No rash. Normal color. No pallor. Inspection of the right inguinal area shows a 1 cm abscess with mild fluctuance, no overt erythema. Musculoskeletal: No pedal edema. Full range of motion extremities. Const Vital Signs: 09/13/22 22:10 09/13/22 23:20 Temperature 97.1 F L Temperature Source Temporal Pulse Rate 88 78 Respiratory Rate 15 18 Blood Pressure 114/90 H 115/87 H Blood Pressure Mean 98 96 Pulse Ox 99 96 Oxygen Delivery Method Room Air Room Air MDM MDM MDM Narrative Medical decision making narrative: Patient was informed of the risk of poor wound healing, continued infection, and scarring, and acknowledges an understanding. She would like incision and drainage attempted. She was told that there may not be any return of purulent material and only bleeding. Procedure note: Chaperoned examination/incision and drainage was performed. Povidine iodine was used as skin prep and lidocaine 1% total of 4 mL injected as a local anesthetic. Incision, stellate, was made using a #11 blade. There was only blood return, no purulent material. Area was deloculated and is not deep enough to hold a wick/packing. Was lightly irrigated with normal saline. Dry sterile gauze dressing was applied. She is to have a wound check in the next 2 to 3 days by her primary care provider or her skin doctor. She is to look for signs of continued infection and return with new or worsening symptoms. She will take [id number] analgesics. I do not feel she requires any imaging or laboratory work. I am not concerned for sepsis. I do feel this is a local abscess that has drained. She was given a prescription for clindamycin to take 300 mg 3 times a day for the next 7 days. This is because she also has history of diabetes. Return instructions to the emergency department were reviewed. Disposition is discharged home in stable condition. History & Record Review Discussion w/independent historian: Patient Additional record(s) reviewed:: Prior ED visit Discharge Plan Triage Chief Complaint: Abscess ED Provider: Emil Christie Dx/Rx/DC Orders Clinical Impression: Abscess of right groin, Diabetes Instructions: ED Abscess Incision And Drainage Prescriptions: New clindamycin HCl 300 mg capsule 300 mg PO Q8H 7 Days Qty: 21 0RF No Action ondansetron HCl 4 mg tablet 4 mg PO Q8H Trulicity 0.75 mg/0.5 mL pen injector 1.5 mg subcut QWEEK Jardiance 25 mg tablet 25 mg PO DAILY escitalopram oxalate 20 mg tablet 20 mg PO DAILY buspirone 5 mg tablet 5 mg PO TID PRN (Reason: Anxiety) Dupixent Pen 300 mg/2 mL pen injector 300 mg subcut Q2W Mirena 21 mcg/24 hours (8 yrs) 52 mg intrauterine device 1 device intrauterine ONCE Rx Instructions: as a single dose famotidine 20 mg tablet 20 mg PO QHS Qty: 90 3RF albuterol sulfate 1 INHALER inhaler 1 - 2 puff INHALATION Q4H PRN PRN (Reason: Wheezing) gabapentin 300 MG capsule 400 mg PO TID albuterol sulfate 2.5 MG/3 ML solution for nebulization 2.5 mg INHALATION Q4H PRN PRN (Reason: Dyspnea) Qty: 30 0RF atorvastatin 10 MG tablet 40 mg PO QHS hydrochlorothiazide 12.5 MG capsule 12.5 mg PO DAILY rizatriptan 10 MG tablet 10 mg PO X1 PRN (Reason: MIGRAINE SYMPTOMS) 0RF diphenhydramine HCl 25 MG capsule 50 mg PO TID PRN PRN (Reason: Rash/Topical Irritation) Qty: 14 0RF hydrocortisone 1 APPLIC cream 1 applic topical TID PRN PRN (Reason: Rash/Topical Irritation) Qty: 1 0RF primidone 50 mg tablet 200 mg PO QHS Label Comments: take 4 tablets by mouth daily at bedtime baclofen 10 mg tablet 10 mg PO PRN PRN (Reason: MUSCLE RELAX) pantoprazole 40 mg tablet,delayed release (DR/EC) 40 mg PO DAILY Label Comments: take 1 tablet by mouth once daily ON AN EMPTY STOMACH 30 MINUTES before breakfast ibuprofen [Motrin] 400 mg Tablet 400 mg PO Q6H PRN (Reason: Pain) pramipexole 0.25 mg tablet See Rx Instructions .ROUTE .COMPLEX Label Comments: take 2 tablets by mouth at bedtime Rx Instructions: TAKE 2 TABS AT BEDTIME Primary Care Provider: Care Physician,No Primary Referrals: Care Physician,No Primary [Primary Care Provider] - Activity Restrictions/Additional Instructions: Follow-up with your primary care provider or your skin doctor in the next 2 days to 3 days for a wound check. Return with fever, increased pain, increased redness to area, new or worsening symptoms. Disposition Disposition: Home, Self Care
[2022-09-13] MEDS: Clindamycin HCl 150 MG Capsule 300 MG PO (23:14)
[2022-09-13] MEDS: Lidocaine 1% (20 ml mdv) 20 ML Vial INFILT (23:14)
[2022-09-13 23:20] VITALS: BP 115/87; PULSE 78; RESP 18; O2SAT 96
[2022-09-14 00:05] VITALS: BP 116/78; PULSE 82; RESP 18; O2SAT 100
== END 2022-09-14 00:07 | disposition home or self-care (01) ==
PROVIDERS: Emergency Provider Emergency Medicine; Visit Provider Emergency Medicine
DX: L02.214 Cutaneous abscess of groin (principal); J44.9 Chronic obstructive pulmonary disease, unspecified; E11.9 Type 2 diabetes mellitus without complications; I10 Essential (primary) hypertension; F17.210 Nicotine dependence, cigarettes, uncomplicated; Z79.85 Long-term (current) use of injectable non-insulin antidiabetic drugs; Z79.899 Other long term (current) drug therapy
CPT/HCPCS: 10060; 99283

== ENCOUNTER → 2022-10-15 | Outpatient (CLI) | payer MEDICARE, MEDICAID, SELFPAY ==
[2022-10-15 10:53] LABS: Absolute Lymphocyte Count 3.41 X10^3/uL (0.83-4.51); Absolute Neutrophil Count 6.6 X10^3/uL (2.0-7.7); Basophil# 0.04 X10^3/uL; Basophil% 0.4 % (0-1); Eosinophil# 0.15 X10^3/uL; Eosinophils% 1.4 % (0-5); Hematocrit 41.4 % (37-47); Hemoglobin 13.5 g/dL (12.0-15.0); Lymphocyte # 3.41 X10^3/ul (0.83-4.51); Mean Corp Hgb Conc 32.6 g/dL (32-36); Mean Corpuscular Hgb 28.6 pg (27.0-32.0); Mean Corpuscular Volume 87.7 fL (81-99); Mean Platelet Vol. 11.9 fl (6.2-12.0); Monocyte# 0.78 X10^3/uL; Monocyte% 7.1 % (0-10); NRBC Flagged by Analyzer 0 % (0-5); Neutrophil # 6.56 X10^3/uL (2.7-7.7); Neutrophil % 59.5 % (47-70); Platelet Count 305 K/mm3 (150-450); RBC Distribution Width CV 13.5 % (11.6-14.6); RBC Distribution Width SD 43.5 fl (35.1-43.9); Red Blood Count 4.72 M/mm3 (4.2-5.4)
[2022-10-15 11:35] LABS: ALB/GLOB Ratio 0.9 RATIO (0.9-2.4); AST(SGOT) 9 U/L (15-37); Alanine Aminotransfer ALT/SGPT 18 U/L (13-56); Albumin, Serum 3.3 g/dL (3.2-5.0); Alkaline Phosphatase 144 U/L (45-117); Anion Gap 9 (5-15); BUN 9 mg/dL (7-18); BUN/Creat Ratio 10.7 RATIO (10-20); Calcium,Total 9.3 mg/dL (8.5-10.1); Chloride 103 mmol/L (98-107); Cholesterol 263 mg/dL (200); Creatinine, Serum 0.84 mg/dL (0.55-1.02); EST Glomerular Filtration Rate 77 mL/min (>60); Est Glom Filt Rate - Afr Amer 93 mL/min (>60); Globulin 3.7 g/dL (2.2-4.2); Glucose 292 mg/dL (74-106); High Density Lipoprotein 41 mg/dL; Potassium 3.1 mmol/L (3.5-5.1); Sodium Level 136 mmol/L (136-145); Triglycerides 1085 mg/dL
[2022-10-15 11:55] LABS: Hemoglobin A1c 8.5 % (3.8-5.6)
--- NOTE | 2022-10-15 12:48 | NEURO ---
NCS and/or EMG Patient Report Ordering Doctor: Roberto Holden DATE OF SERVICE: 10/15/22 Sarah presents for electrodiagnostic testing of the right upper limb. She reports numbness and tingling of the right hand, primarily the fifth digit. Electrodiagnostic findings: Right median motor nerve demonstrates borderline prolonged distal latency with normal amplitude and conduction velocity. Right ulnar motor response demonstrates an approximately 50% drop in conduction and amplitude across the elbow. Normal ulnar and radial sensory responses. Borderline prolonged right median sensory latency at the wrist. Needle EMG testing of the right upper limb showed no evidence of denervation with normal motor unit action potentials. Ms. Guillen did decline testing in the left upper limb, stating she was asymptomatic there. Electrodiagnostic impression: This is an abnormal study in the right upper limb 1. Electrodiagnostic findings suggestive of right-sided ulnar neuropathy. This is consistent with a moderate to severe right cubital tunnel syndrome. 2. Electrodiagnostic findings suggestive of a right-sided median mononeuropathy. This is consistent with a mild right carpal tunnel syndrome. 3. No electrodiagnostic evidence for cervical radiculopathy. Multi Select Codes Neurology Neurology Interp Codes: 54964-65 Musc test done w/n test comp (interp) and 92281-00 Nrv cndj test 7-8 studies (interp)
== END | disposition home or self-care (01) ==
PROVIDERS: PCP Family Medicine; Referring Provider Surgery; Visit Provider Surgery
DX: G56.03 Carpal tunnel syndrome, bilateral upper limbs (principal); E11.9 Type 2 diabetes mellitus without complications; Z79.4 Long term (current) use of insulin
CPT/HCPCS: 36415; 80053; 80061; 83036; 85025; 95886; 95910

== ENCOUNTER 2022-10-21 11:37 | Emergency (ER) | payer MEDICARE, MEDICAID, SELFPAY ==
[2022-10-21 11:40] VITALS: BP 101/68; PULSE 100; RESP 18; TEMP 36.5; O2SAT 97
--- NOTE | 2022-10-21 11:45 | EDS_ITS ---
HPI History of Present Illness Chief Complaint: Wound [facility] Medical History Acid reflux disease Acquired saddle nose deformity Airway obstruction, anatomic Alcohol use Anxiety Arthritis Asthma Back pain Back problem Bilateral carpal tunnel syndrome Bladder infection Chronic GERD Chronic headaches Chronic neck pain Contusion of left eyelid and periocular area, initial encounter Contusion of nose, initial encounter Contusion of right eyelid and periocular area, sequela COPD (chronic obstructive pulmonary disease) Depression Deviated nasal septum Diabetes Difficulty swallowing Dysphagia Fall (on)(from) sidewalk curb, initial encounter Fall at home Fracture of orbital floor, blow-out, right, closed Fracture of orbital floor, right side, sequela Gallstones Gastric reflux Headache Hearing problem History of edema History of falling History of IBS History of pain when walking Hypertension Injury of head and neck Marijuana use Migraine headache Nasal septal perforation Nausea and vomiting Other specified disorders of nose and nasal sinuses Rheumatoid arteritis Seasonal allergies Shortness of breath on exertion Smoker Vision problems Home Medications albuterol sulfate 90 mcg/actuation aerosol inhaler 1 - 2 puff inhalation Q4H PRN PRN Wheezing 06/13/16 [History Last Taken 3 Days Ago ~01/26/19] gabapentin 300 mg capsule 400 mg PO TID nerve pain 07/25/16 [History Last Taken 01/29/19] albuterol sulfate 2.5 mg/3 mL (0.083 %) solution for nebulization 2.5 mg (3 mL) inhalation Q4H PRN PRN Dyspnea #30 vials 08/05/16 [Rx Last Taken 3 Days Ago ~01/26/19] atorvastatin 10 mg tablet 40 mg PO QHS CHOLESTEROL 10/10/17 [History Last Taken 1 Day Ago ~01/28/19] hydrochlorothiazide 12.5 mg capsule 12.5 mg PO DAILY SWELLING 02/09/18 [History Last Taken 01/29/19] rizatriptan 10 mg tablet 10 mg PO X1 PRN MIGRAINE SYMPTOMS 02/17/18 [Rx Last Taken 4 Days Ago ~01/25/19] diphenhydramine HCl 25 mg capsule 50 mg (2 x 25 mg) PO TID PRN PRN Rash/Topical Irritation #14 caps 09/19/19 [Rx Last Taken Unknown] hydrocortisone 2.5 % topical cream 1 applic topical TID PRN PRN Rash/Topical Irritation #1 tube 09/19/19 [Rx Last Taken Unknown] buspirone 5 mg tablet 5 mg PO TID PRN Anxiety 04/29/22 [History Last Taken Unknown] dulaglutide 0.75 mg/0.5 mL subcutaneous pen injector (Trulicity) 1.5 mg subcut QWEEK 04/29/22 [History Last Taken Unknown] dupilumab 300 mg/2 mL subcutaneous pen injector (Dupixent) 300 mg subcut Q2W 04/29/22 [History Last Taken Unknown] empagliflozin 25 mg tablet (Jardiance) 25 mg PO DAILY 04/29/22 [History Last Taken Unknown] escitalopram oxalate 20 mg tablet 20 mg PO DAILY 04/29/22 [History Last Taken Unknown] levonorgestrel 21 mcg/24 hours (8 yrs) 52 mg intrauterine device (Mirena) 1 device intrauterine ONCE 04/29/22 [History Last Taken Unknown] ondansetron HCl 4 mg tablet 4 mg PO Q8H 04/29/22 [History Last Taken Unknown] baclofen 10 mg tablet 10 mg PO PRN PRN MUSCLE RELAX 07/23/22 [History Last Taken Unknown] ibuprofen 400 mg tablet 400 mg PO Q6H PRN Pain 07/23/22 [History Last Taken Unknown] pantoprazole 40 mg tablet,delayed release 40 mg PO DAILY 07/23/22 [History Last Taken Unknown] pramipexole 0.25 mg tablet See Rx Instructions .Route .COMPLEX 07/23/22 [History Last Taken Unknown] primidone 50 mg tablet 200 mg PO QHS 07/23/22 [History Last Taken Unknown] famotidine 20 mg tablet 20 mg PO QHS #90 tabs 08/27/22 [Rx Last Taken Unknown] clindamycin HCl 300 mg capsule 300 mg PO Q8H 7 days #21 caps 09/13/22 [Rx Last Taken Unknown] cephalexin 500 mg capsule 500 mg PO Q8H 7 days #21 caps 10/21/22 [Rx Last Taken Unknown] sulfamethoxazole 800 mg-trimethoprim 160 mg tablet (Bactrim DS) 1 tab PO BID 7 days #14 tabs 10/21/22 [Rx Last Taken Unknown] Allergy/AdvReac Type Severity Reaction Status Date / Time bee venom protein (honey bee) Allergy Angioedema Verified 10/21/22 11:39 mold Allergy Itching Verified 10/21/22 11:39 naproxen Allergy Nausea Verified 10/21/22 11:39 aloe vera [From Flexall] AdvReac Severe Nausea/Vom/ Verified 10/21/22 11:39 Diarrhea menthol [From Flexall] AdvReac Severe Nausea/Vom/ Verified 10/21/22 11:39 Diarrhea vitamin E (d-alpha AdvReac Severe Nausea/Vom/ Verified 10/21/22 11:39 tocopherol) Diarrhea [From Flexall] amoxicillin AdvReac Upset Verified 10/21/22 11:39 Stomach guaifenesin [From Robitussin] AdvReac Nausea Verified 10/21/22 11:39 shrimp AdvReac Vomiting Verified 10/21/22 11:39 Sulfa (Sulfonamide AdvReac Vomiting Verified 10/21/22 11:39 Antibiotics) Family History Unknown No problems noted. Surgical History Closed fracture of right orbital floor H/O section History of cholecystectomy History of nasal septoplasty History of nasal surgery Hx of tubal ligation Social History household members: family Smoking Status: Current every day smoker tobacco type: cigarettes alcohol intake: former substance use type: marijuana what type of physical activity do you participate in: walking seatbelt use: always additional social history: SUN EXPOSURE: FREQUENTLY EXAM Physical Exam Const Vital Signs: 10/21/22 11:40 Temperature 97.7 F L Temperature Source Temporal Pulse Rate 100 Respiratory Rate 18 Blood Pressure 101/68 Blood Pressure Mean 79 Pulse Ox 97 Oxygen Delivery Method Room Air MDM MDM MDM Narrative Medical decision making narrative: HISTORY OF PRESENT ILLNESS: 47-year-old female here with concern for left groin cyst. States today it burst she notes discharge and pain. She further states, with strategic intelligence officer her sugars have been running in 200s. No vomiting. No perineal involvement. REVIEW OF SYSTEMS: Pertinent positives: erythema, drainage. Pertinent negatives: perineal involvement, nausea and vomiting. PHYSICAL EXAM: Nursing triage notes reviewed, Vital signs reviewed Constitutional: please see mdm Lungs: Clear to auscultation, No wheezing or rales. No increased work of breathing, no conversational dyspnea, no accessory muscle use, no nasal flaring. No respiratory distress noted Heart: Regular rate and rhythm, No murmurs, No rubs and No gallops, 2+ distal pulses (radial, femoral, posterior tibial) in all extremities : No CVAT with a strategic intelligence officer in place performed an external exam which showed left groin redness with white and yellow drainage. There is no obvious crepitus, bullae, no perineal involvement Extremities: No edema Skin: Erythema noted to left groin. There is actively draining 1 cm area. There is no crepitus or bullae. MEDICAL DECISION MAKING: Chief Complaint: Left groin wound Factors affecting care: Type 2 diabetes ALL IMAGES (IF OBTAINED) HAVE BEEN PERSONALLY REVIEWED AND INTERPRETED BY MYSELF. MDM Narrative: Patient was hemodynamically stable, afebrile, nontoxic-appearing. Exam consistent with draining likely abscess with surrounding cellulitis. Given history of diabetes will give empiric antibiotic cryotherapy with strep and MRSA coverage with Keflex and Bactrim. No evidence of necrotizing fasciitis. There is no perineal involvement to suggest German's gangrene. The patient and/or family, caregivers express understanding. The patient and/or family, caregivers agrees with the plan. Shared decision making: I will have a discussion with the patient and or visitors regarding risk/benefits of further testing or admission. They will be made aware of of the risk/benefits inherent in this decision they will be given the opportunity to voice understanding. Total critical care time today provided was at least 0 minutes. This excludes separately billable procedures. Critical care time (if documented) is secondary to the patient having high probability of clinically significant/life threatening deterioration in the patient's condition which required my urgent intervention. Discharge Plan Triage Chief Complaint: Wound ED Provider: Ryan Christian Dx/Rx/DC Orders Clinical Impression: Abscess of groin, left Instructions: Abscess Drainage Prescriptions: New sulfamethoxazole-trimethoprim [Bactrim DS] 800-160 mg tablet 1 tab PO BID 7 Days Qty: 14 0RF cephalexin 500 mg capsule 500 mg PO Q8H 7 Days Qty: 21 0RF No Action ondansetron HCl 4 mg tablet 4 mg PO Q8H Trulicity 0.75 mg/0.5 mL pen injector 1.5 mg subcut QWEEK Jardiance 25 mg tablet 25 mg PO DAILY escitalopram oxalate 20 mg tablet 20 mg PO DAILY buspirone 5 mg tablet 5 mg PO TID PRN (Reason: Anxiety) Dupixent Pen 300 mg/2 mL pen injector 300 mg subcut Q2W Mirena 21 mcg/24 hours (8 yrs) 52 mg intrauterine device 1 device intrauterine ONCE Rx Instructions: as a single dose famotidine 20 mg tablet 20 mg PO QHS Qty: 90 3RF albuterol sulfate 1 INHALER inhaler 1 - 2 puff INHALATION Q4H PRN PRN (Reason: Wheezing) gabapentin 300 MG capsule 400 mg PO TID albuterol sulfate 2.5 MG/3 ML solution for nebulization 2.5 mg INHALATION Q4H PRN PRN (Reason: Dyspnea) Qty: 30 0RF atorvastatin 10 MG tablet 40 mg PO QHS hydrochlorothiazide 12.5 MG capsule 12.5 mg PO DAILY rizatriptan 10 MG tablet 10 mg PO X1 PRN (Reason: MIGRAINE SYMPTOMS) 0RF diphenhydramine HCl 25 MG capsule 50 mg PO TID PRN PRN (Reason: Rash/Topical Irritation) Qty: 14 0RF hydrocortisone 1 APPLIC cream 1 applic topical TID PRN PRN (Reason: Rash/Topical Irritation) Qty: 1 0RF primidone 50 mg tablet 200 mg PO QHS Patient Comments: take 4 tablets by mouth daily at bedtime baclofen 10 mg tablet 10 mg PO PRN PRN (Reason: MUSCLE RELAX) pantoprazole 40 mg tablet,delayed release (DR/EC) 40 mg PO DAILY Patient Comments: take 1 tablet by mouth once daily ON AN EMPTY STOMACH 30 MINUTES before breakfast ibuprofen [Motrin] 400 mg Tablet 400 mg PO Q6H PRN (Reason: Pain) pramipexole 0.25 mg tablet See Rx Instructions .ROUTE .COMPLEX Patient Comments: take 2 tablets by mouth at bedtime Rx Instructions: TAKE 2 TABS AT BEDTIME clindamycin HCl 300 mg capsule 300 mg PO Q8H 7 Days Qty: 21 0RF Primary Care Provider: Brandt Simpson Referrals: Brandt Simpson MD [Primary Care Provider] - Activity Restrictions/Additional Instructions: Thank you for trusting us with your care today! Please take Tylenol (2 pills, 650 mg), ibuprofen (2 pills, 400 mg) every 6 hours as needed for pain and fever control. Please take antibiotics as prescribed. Please return to the emergency department if your symptoms change or worsen. Specifically if cannot tolerate antibiotics by mouth. Or if you develop any genital involvement of your redness or pain. Please follow with your primary care physician for further outpatient evaluation and management. Disposition Disposition: Home, Self Care
[2022-10-21] MEDS: Cephalexin 250 MG Capsule 500 MG PO (12:04)
[2022-10-21] MEDS: Smz/Tmp Ds Tablet 1 TABLET PO (12:04)
== END 2022-10-21 12:30 | disposition home or self-care (01) ==
LOC: ED 12:26
PROVIDERS: Emergency Provider Emergency Medicine; PCP Family Medicine; Visit Provider Emergency Medicine
DX: L02.214 Cutaneous abscess of groin (principal); F17.210 Nicotine dependence, cigarettes, uncomplicated; F12.90 Cannabis use, unspecified, uncomplicated
CPT/HCPCS: 99283

== ENCOUNTER 2022-11-25 17:04 | Emergency (ER) | payer MEDICARE, MEDICAID, SELFPAY ==
[2022-11-25 17:06] VITALS: BP 133/79; PULSE 104; RESP 20; TEMP 36; O2SAT 97
[2022-11-25 17:08] VITALS: BMI 22.8
--- NOTE | 2022-11-25 17:25 | RAD_ITS ---
EXAM: XR LEFT TIBIA AND FIBULA, 2 VIEWS CLINICAL INDICATION: injury -- -- Pt fell today causing abrasion and pain to left leg, recently injured left knee and already using crutches. TECHNIQUE: Frontal and lateral views of the left tibia and fibula. COMPARISON: No relevant prior studies available. FINDINGS: BONES/JOINTS: No acute abnormality. SOFT TISSUES: Normal. No soft tissue swelling or gas. No radiopaque foreign body. RAD/Tibia & Fibula 2 Views IMPRESSION: Intact left tibia and fibula. Electronically Signed: Cuong Gómez MD at 18:01 EDT ,
--- NOTE | 2022-11-25 17:25 | RAD_ITS ---
EXAM: XR RIGHT SHOULDER COMPLETE, 2 OR MORE VIEWS CLINICAL INDICATION: injury -- -- Pt fell today causing abrasion and pain to left leg, recently injured left knee and already using crutches. TECHNIQUE: Two or more views of the right shoulder. COMPARISON: No relevant prior studies available. FINDINGS: BONES/JOINTS: No acute abnormality. SOFT TISSUES: Soft tissue calcification adjacent to the greater tubercle consistent with calcific tendinitis. No soft tissue swelling or gas. No radiopaque foreign body. RAD/Shoulder min 2 Views IMPRESSION: No acute bone or joint abnormality. Calcific tendinitis. Electronically Signed: Cuong Gómez MD at 18:01 EDT ,
[2022-11-25] MEDS: Diphth,Pertuss(Acell),Tet Vac 0.5 ML Vial IM (17:34)
--- NOTE | 2022-11-25 18:13 | EX.ED.GENINJ ---
HPI History of Present Illness Chief Complaint: Fall Informant: patient and family Narrative Narrative: 47-year-old female presenting to the emergency room with a chief complaint of fall. Patient states that she was walking on the sidewalk when she lost her footing due to some gravel and fell down on the gravel. She notes pain in the right shoulder as well as the left knee and ankle. She notes abrasions along the lateral aspect of the left distal leg. Unknown last tetanus. She denies any other injuries. She has been using crutches due to pain in the right knee but was not using crutches at the time of the injury. [facility] Medical History Acid reflux disease Acquired saddle nose deformity Airway obstruction, anatomic Alcohol use Anxiety Arthritis Asthma Back pain Back problem Bilateral carpal tunnel syndrome Bladder infection Chronic GERD Chronic headaches Chronic neck pain Contusion of left eyelid and periocular area, initial encounter Contusion of nose, initial encounter Contusion of right eyelid and periocular area, sequela COPD (chronic obstructive pulmonary disease) Depression Deviated nasal septum Diabetes Difficulty swallowing Dysphagia Fall (on)(from) sidewalk curb, initial encounter Fall at home Fracture of orbital floor, blow-out, right, closed Fracture of orbital floor, right side, sequela Gallstones Gastric reflux Headache Hearing problem History of edema History of falling History of IBS History of pain when walking Hypertension Injury of head and neck Marijuana use Migraine headache Nasal septal perforation Nausea and vomiting Other specified disorders of nose and nasal sinuses Rheumatoid arteritis Seasonal allergies Shortness of breath on exertion Smoker Vision problems Home Medications albuterol sulfate 90 mcg/actuation aerosol inhaler 1 - 2 puff inhalation Q4H PRN PRN Wheezing 06/13/16 [History Last Taken 3 Days Ago ~01/26/19] gabapentin 300 mg capsule 400 mg PO TID nerve pain 07/25/16 [History Last Taken 01/29/19] albuterol sulfate 2.5 mg/3 mL (0.083 %) solution for nebulization 2.5 mg (3 mL) inhalation Q4H PRN PRN Dyspnea #30 vials 08/05/16 [Rx Last Taken 3 Days Ago ~01/26/19] atorvastatin 10 mg tablet 40 mg PO QHS CHOLESTEROL 10/10/17 [History Last Taken 1 Day Ago ~01/28/19] hydrochlorothiazide 12.5 mg capsule 12.5 mg PO DAILY SWELLING 02/09/18 [History Last Taken 01/29/19] rizatriptan 10 mg tablet 10 mg PO X1 PRN MIGRAINE SYMPTOMS 02/17/18 [Rx Last Taken 4 Days Ago ~01/25/19] diphenhydramine HCl 25 mg capsule 50 mg (2 x 25 mg) PO TID PRN PRN Rash/Topical Irritation #14 caps 09/19/19 [Rx Last Taken Unknown] hydrocortisone 2.5 % topical cream 1 applic topical TID PRN PRN Rash/Topical Irritation #1 tube 09/19/19 [Rx Last Taken Unknown] buspirone 5 mg tablet 5 mg PO TID PRN Anxiety 04/29/22 [History Last Taken Unknown] dulaglutide 0.75 mg/0.5 mL subcutaneous pen injector (Trulicity) 1.5 mg subcut QWEEK 04/29/22 [History Last Taken Unknown] dupilumab 300 mg/2 mL subcutaneous pen injector (Dupixent) 300 mg subcut Q2W 04/29/22 [History Last Taken Unknown] empagliflozin 25 mg tablet (Jardiance) 25 mg PO DAILY 04/29/22 [History Last Taken Unknown] escitalopram oxalate 20 mg tablet 20 mg PO DAILY 04/29/22 [History Last Taken Unknown] levonorgestrel 21 mcg/24 hours (8 yrs) 52 mg intrauterine device (Mirena) 1 device intrauterine ONCE 04/29/22 [History Last Taken Unknown] ondansetron HCl 4 mg tablet 4 mg PO Q8H 04/29/22 [History Last Taken Unknown] baclofen 10 mg tablet 10 mg PO PRN PRN MUSCLE RELAX 07/23/22 [History Last Taken Unknown] ibuprofen 400 mg tablet 400 mg PO Q6H PRN Pain 07/23/22 [History Last Taken Unknown] pantoprazole 40 mg tablet,delayed release 40 mg PO DAILY 07/23/22 [History Last Taken Unknown] pramipexole 0.25 mg tablet See Rx Instructions .Route .COMPLEX 07/23/22 [History Last Taken Unknown] primidone 50 mg tablet 200 mg PO QHS 07/23/22 [History Last Taken Unknown] famotidine 20 mg tablet 20 mg PO QHS #90 tabs 08/27/22 [Rx Last Taken Unknown] clindamycin HCl 300 mg capsule 300 mg PO Q8H 7 days #21 caps 09/13/22 [Rx Last Taken Unknown] cephalexin 500 mg capsule 500 mg PO Q8H 7 days #21 caps 10/21/22 [Rx Last Taken Unknown] sulfamethoxazole 800 mg-trimethoprim 160 mg tablet (Bactrim DS) 1 tab PO BID 7 days #14 tabs 10/21/22 [Rx Last Taken Unknown] Allergy/AdvReac Type Severity Reaction Status Date / Time bee venom protein (honey bee) Allergy Angioedema Verified 11/25/22 17:06 mold Allergy Itching Verified 11/25/22 17:06 naproxen Allergy Nausea Verified 11/25/22 17:06 aloe vera [From Flexall] AdvReac Severe Nausea/Vom/ Verified 11/25/22 17:06 Diarrhea menthol [From Flexall] AdvReac Severe Nausea/Vom/ Verified 11/25/22 17:06 Diarrhea vitamin E (d-alpha AdvReac Severe Nausea/Vom/ Verified 11/25/22 17:06 tocopherol) Diarrhea [From Flexall] amoxicillin AdvReac Upset Verified 11/25/22 17:06 Stomach guaifenesin [From Robitussin] AdvReac Nausea Verified 11/25/22 17:06 shrimp AdvReac Vomiting Verified 11/25/22 17:06 Sulfa (Sulfonamide AdvReac Vomiting Verified 11/25/22 17:06 Antibiotics) Family History Unknown No problems noted. Surgical History Closed fracture of right orbital floor H/O section History of cholecystectomy History of nasal septoplasty History of nasal surgery Hx of tubal ligation Social History household members: family Smoking Status: Current every day smoker tobacco type: cigarettes alcohol intake: former substance use type: marijuana what type of physical activity do you participate in: walking seatbelt use: always additional social history: SUN EXPOSURE: FREQUENTLY ROS ROS ED Constitutional Constitutional ED: Denies chills or weight loss Eyes Eyes: Denies change in vision or diplopia ENT ENT ED: Denies ear pain, rhinorrhea or sore throat Cardiovascular Cardiovascular: Denies chest pain, orthopnea, palpitations or racing heartbeat Respiratory/Chest Respiratory/Chest: Denies cough, dyspnea or orthopnea Gastrointestinal Gastrointestinal: Denies abdominal pain, diarrhea, nausea or vomiting Genitourinary Genitourinary ED: Denies dysuria, hematuria or urinary frequency Musculoskeletal Musculoskeletal: Reports other Details: See HPI ; Denies arthralgias or myalgias Integumentary Reports Abrasions; Denies abscess or rash Neurologic Neurologic: Denies headache(s) or weakness Psychiatric Psychiatric: Denies anxiety, depression, suicidal ideation or suicidal thoughts Endocrine Endocrinology: Denies polydipsia, polyphagia or polyuria Allergic/Immunologic Allergic/Immunologic ED: Denies mouth swelling, tongue swelling or urticaria EXAM Physical Exam Const Vital Signs: 11/25/22 17:06 11/25/22 17:21 Temperature 96.8 F L Temperature Source Temporal Pulse Rate 104 H Respiratory Rate 20 H Respiratory Effort Normal Respiratory Depth Normal Respiratory Pattern Normal Blood Pressure 133/79 H Blood Pressure Mean 97 Pulse Ox 97 Oxygen Delivery Method Room Air Positive well nourished and well developed General Appearance ED: well developed HEENT Reports normocephalic, head/scalp atraumatic and moist mucous membranes Eyes PERRL and EOMs intact bilaterally Neck full ROM, no lymphadenopathy, supple and no JVD Resp normal respiratory effort and clear to auscultation bilaterally Cardio regular rate, regular rhythm and no murmurs GI normal to inspection, nondistended, normoactive bowel sounds and non-tender Palpation: soft Back/Spine no CVA tenderness and normal ROM Extremity Extremity Narrative: There are abrasions to the lateral left leg. The knee exam demonstrates no effusion. Extensor mechanism is intact. There is no obvious deformity. Her knee pain is along the abrasions which are along the lateral leg. She has an abrasion at the left ankle laterally but there is no ankle swelling or bony tenderness. Neurovascular intact. Patient has generalized soreness to the right shoulder which has full range of motion. General Extremety ED: Negative for edema General Extremity: Negative for edema Neuro oriented x3 and CN's II-XII intact bilaterally Sensorium / Orientation: alert Motor Exam: strength 5/5 throughout Psych mental status grossly normal Mood & Affect: Negative for depressed or tearful Skin no rashes or lesions noted and no wounds MDM MDM MDM Narrative Medical decision making narrative: My interpretation of the plain films of the right shoulder and left tib-fib is no acute fracture. Wounds will be cleansed and dressed by nursing. Tetanus will be updated. Patient should expect soreness but should resolve. Would encourage her to use her crutches as needed. Tylenol or Motrin for pain. Radiography Diagnostic Testing: Clinical Impression(s) from Imaging Studies Shoulder X-Ray 11/25/22 17:25 IMPRESSION: No acute bone or joint abnormality. Calcific tendinitis. Electronically Signed: Cuong Gómez MD at 18:01 EDT , Tibia/Fibula X-Ray 11/25/22 17:25 IMPRESSION: Intact left tibia and fibula. Electronically Signed: Cuong Gómez MD at 18:01 EDT , Discharge Plan Triage Chief Complaint: Fall ED Provider: Krishna Julien Dx/Rx/DC Orders Prescriptions: No Action ondansetron HCl 4 mg tablet 4 mg PO Q8H Trulicity 0.75 mg/0.5 mL pen injector 1.5 mg subcut QWEEK Jardiance 25 mg tablet 25 mg PO DAILY escitalopram oxalate 20 mg tablet 20 mg PO DAILY buspirone 5 mg tablet 5 mg PO TID PRN (Reason: Anxiety) Dupixent Pen 300 mg/2 mL pen injector 300 mg subcut Q2W Mirena 21 mcg/24 hours (8 yrs) 52 mg intrauterine device 1 device intrauterine ONCE Rx Instructions: as a single dose famotidine 20 mg tablet 20 mg PO QHS Qty: 90 3RF albuterol sulfate 1 INHALER inhaler 1 - 2 puff INHALATION Q4H PRN PRN (Reason: Wheezing) gabapentin 300 MG capsule 400 mg PO TID albuterol sulfate 2.5 MG/3 ML solution for nebulization 2.5 mg INHALATION Q4H PRN PRN (Reason: Dyspnea) Qty: 30 0RF atorvastatin 10 MG tablet 40 mg PO QHS hydrochlorothiazide 12.5 MG capsule 12.5 mg PO DAILY rizatriptan 10 MG tablet 10 mg PO X1 PRN (Reason: MIGRAINE SYMPTOMS) 0RF diphenhydramine HCl 25 MG capsule 50 mg PO TID PRN PRN (Reason: Rash/Topical Irritation) Qty: 14 0RF hydrocortisone 1 APPLIC cream 1 applic topical TID PRN PRN (Reason: Rash/Topical Irritation) Qty: 1 0RF primidone 50 mg tablet 200 mg PO QHS Patient Comments: take 4 tablets by mouth daily at bedtime baclofen 10 mg tablet 10 mg PO PRN PRN (Reason: MUSCLE RELAX) pantoprazole 40 mg tablet,delayed release (DR/EC) 40 mg PO DAILY Patient Comments: take 1 tablet by mouth once daily ON AN EMPTY STOMACH 30 MINUTES before breakfast ibuprofen [Motrin] 400 mg Tablet 400 mg PO Q6H PRN (Reason: Pain) pramipexole 0.25 mg tablet See Rx Instructions .ROUTE .COMPLEX Patient Comments: take 2 tablets by mouth at bedtime Rx Instructions: TAKE 2 TABS AT BEDTIME clindamycin HCl 300 mg capsule 300 mg PO Q8H 7 Days Qty: 21 0RF sulfamethoxazole-trimethoprim [Bactrim DS] 800-160 mg tablet 1 tab PO BID 7 Days Qty: 14 0RF cephalexin 500 mg capsule 500 mg PO Q8H 7 Days Qty: 21 0RF Primary Care Provider: Brandt Simpson Referrals: Brandt Simpson MD [Primary Care Provider] -
[2022-11-25] MEDS: Acetaminophen 500 MG Tablet 1000 MG PO (18:29)
== END 2022-11-25 18:33 | disposition home or self-care (01) ==
PROVIDERS: Emergency Provider Emergency Medicine; PCP Family Medicine; Visit Provider Emergency Medicine
DX: S80.812A Abrasion, left lower leg, initial encounter (principal); F12.90 Cannabis use, unspecified, uncomplicated; F17.210 Nicotine dependence, cigarettes, uncomplicated; G89.29 Other chronic pain; M54.2 Cervicalgia; W19.XXXA Unspecified fall, initial encounter
CPT/HCPCS: 73030; 73590; 90715; 99283

== ENCOUNTER 2022-11-28 18:23 | Emergency (ER) | payer MEDICARE, MEDICAID, SELFPAY ==
[2022-11-28 18:24] VITALS: BP 110/62; PULSE 82; RESP 16; TEMP 36.3; O2SAT 98; BMI 21.9
--- NOTE | 2022-11-28 18:58 | RAD_ITS ---
STUDY: X-RAY - LEFT KNEE REASON FOR EXAM: Female, 47 years old. injury TECHNIQUE: 4 view(s) of the knee. COMPARISON: 07/02/2020 FINDINGS: Normal visualized distal femur. Normal visualized proximal tibia and fibula. Normal proximal tibiofibular articulation. Normal medial femorotibial compartment. Normal lateral femorotibial compartment. Normal patellofemoral articulation. The soft tissue structures are unremarkable. RAD/Knee 4 or More Views IMPRESSION: Normal x-ray examination of the knee. Electronically Signed: Roldan Betancourt MD at 19:36 EDT ,
--- NOTE | 2022-11-28 20:07 | ED.VIS.LOWEX ---
HPI History of Present Illness Chief Complaint: Lower Extremity Injury Narrative Narrative: Patient fell again tonight and hurt her left knee again. She fell at home on Thursday. She was seen and evaluated here. Tib-fib images were negative. She was using a cane rather than her crutches. She went to [facility] with family. The tip of the cane got caught in a crack in the ground causing her to fall forward. This was a mechanical fall. She had already had abrasions on the knee. When she fell to the ground the impact tore the dressings off. No other injury. She had nothing else. Nothing else hurts. She states her last tetanus was just days ago [facility] Medical History Acid reflux disease Acquired saddle nose deformity Airway obstruction, anatomic Alcohol use Anxiety Arthritis Asthma Back pain Back problem Bilateral carpal tunnel syndrome Bladder infection Chronic GERD Chronic headaches Chronic neck pain Contusion of left eyelid and periocular area, initial encounter Contusion of nose, initial encounter Contusion of right eyelid and periocular area, sequela COPD (chronic obstructive pulmonary disease) Depression Deviated nasal septum Diabetes Difficulty swallowing Dysphagia Fall (on)(from) sidewalk curb, initial encounter Fall at home Fracture of orbital floor, blow-out, right, closed Fracture of orbital floor, right side, sequela Gallstones Gastric reflux Headache Hearing problem History of edema History of falling History of IBS History of pain when walking Hypertension Injury of head and neck Marijuana use Migraine headache Nasal septal perforation Nausea and vomiting Other specified disorders of nose and nasal sinuses Rheumatoid arteritis Seasonal allergies Shortness of breath on exertion Smoker Vision problems Home Medications albuterol sulfate 90 mcg/actuation aerosol inhaler 1 - 2 puff inhalation Q4H PRN PRN Wheezing 06/13/16 [History Last Taken 3 Days Ago ~01/26/19] gabapentin 300 mg capsule 400 mg PO TID nerve pain 07/25/16 [History Last Taken 01/29/19] albuterol sulfate 2.5 mg/3 mL (0.083 %) solution for nebulization 2.5 mg (3 mL) inhalation Q4H PRN PRN Dyspnea #30 vials 08/05/16 [Rx Last Taken 3 Days Ago ~01/26/19] atorvastatin 10 mg tablet 40 mg PO QHS CHOLESTEROL 10/10/17 [History Last Taken 1 Day Ago ~01/28/19] hydrochlorothiazide 12.5 mg capsule 12.5 mg PO DAILY SWELLING 02/09/18 [History Last Taken 01/29/19] rizatriptan 10 mg tablet 10 mg PO X1 PRN MIGRAINE SYMPTOMS 02/17/18 [Rx Last Taken 4 Days Ago ~01/25/19] diphenhydramine HCl 25 mg capsule 50 mg (2 x 25 mg) PO TID PRN PRN Rash/Topical Irritation #14 caps 09/19/19 [Rx Last Taken Unknown] hydrocortisone 2.5 % topical cream 1 applic topical TID PRN PRN Rash/Topical Irritation #1 tube 09/19/19 [Rx Last Taken Unknown] buspirone 5 mg tablet 5 mg PO TID PRN Anxiety 04/29/22 [History Last Taken Unknown] dulaglutide 0.75 mg/0.5 mL subcutaneous pen injector (Trulicity) 1.5 mg subcut QWEEK 04/29/22 [History Last Taken Unknown] dupilumab 300 mg/2 mL subcutaneous pen injector (Dupixent) 300 mg subcut Q2W 04/29/22 [History Last Taken Unknown] empagliflozin 25 mg tablet (Jardiance) 25 mg PO DAILY 04/29/22 [History Last Taken Unknown] escitalopram oxalate 20 mg tablet 20 mg PO DAILY 04/29/22 [History Last Taken Unknown] levonorgestrel 21 mcg/24 hours (8 yrs) 52 mg intrauterine device (Mirena) 1 device intrauterine ONCE 04/29/22 [History Last Taken Unknown] ondansetron HCl 4 mg tablet 4 mg PO Q8H 04/29/22 [History Last Taken Unknown] baclofen 10 mg tablet 10 mg PO PRN PRN MUSCLE RELAX 07/23/22 [History Last Taken Unknown] ibuprofen 400 mg tablet 400 mg PO Q6H PRN Pain 07/23/22 [History Last Taken Unknown] pantoprazole 40 mg tablet,delayed release 40 mg PO DAILY 07/23/22 [History Last Taken Unknown] pramipexole 0.25 mg tablet See Rx Instructions .Route .COMPLEX 07/23/22 [History Last Taken Unknown] primidone 50 mg tablet 200 mg PO QHS 07/23/22 [History Last Taken Unknown] famotidine 20 mg tablet 20 mg PO QHS #90 tabs 08/27/22 [Rx Last Taken Unknown] clindamycin HCl 300 mg capsule 300 mg PO Q8H 7 days #21 caps 09/13/22 [Rx Last Taken Unknown] cephalexin 500 mg capsule 500 mg PO Q8H 7 days #21 caps 10/21/22 [Rx Last Taken Unknown] sulfamethoxazole 800 mg-trimethoprim 160 mg tablet (Bactrim DS) 1 tab PO BID 7 days #14 tabs 10/21/22 [Rx Last Taken Unknown] Allergy/AdvReac Type Severity Reaction Status Date / Time bee venom protein (honey bee) Allergy Angioedema Verified 11/28/22 18:24 mold Allergy Itching Verified 11/28/22 18:24 naproxen Allergy Nausea Verified 11/28/22 18:24 aloe vera [From Flexall] AdvReac Severe Nausea/Vom/ Verified 11/28/22 18:24 Diarrhea menthol [From Flexall] AdvReac Severe Nausea/Vom/ Verified 11/28/22 18:24 Diarrhea vitamin E (d-alpha AdvReac Severe Nausea/Vom/ Verified 11/28/22 18:24 tocopherol) Diarrhea [From Flexall] amoxicillin AdvReac Upset Verified 11/28/22 18:24 Stomach guaifenesin [From Robitussin] AdvReac Nausea Verified 11/28/22 18:24 shrimp AdvReac Vomiting Verified 11/28/22 18:24 Sulfa (Sulfonamide AdvReac Vomiting Verified 11/28/22 18:24 Antibiotics) Family History Unknown No problems noted. Surgical History Closed fracture of right orbital floor H/O section History of cholecystectomy History of nasal septoplasty History of nasal surgery Hx of tubal ligation Social History household members: family Smoking Status: Current every day smoker tobacco type: cigarettes alcohol intake: former substance use type: marijuana what type of physical activity do you participate in: walking seatbelt use: always additional social history: SUN EXPOSURE: FREQUENTLY ROS ROS ED Constitutional Constitutional ED: Denies chills or fever(s) ENT ENT ED: Denies rhinorrhea Cardiovascular Cardiovascular: Denies chest pain Respiratory/Chest Respiratory/Chest: Denies cough or dyspnea Gastrointestinal Gastrointestinal: Denies nausea or vomiting Musculoskeletal Musculoskeletal: Reports arthralgias; Denies back pain, myalgias or neck pain Integumentary Reports Abrasions Neurologic Neurologic: Denies headache(s), paresthesias or weakness Endocrine Endocrinology: Denies polydipsia or polyuria Hematologic/Lymphatic Hematologic/Lymphatic: Denies easy bleeding or easy bruising Allergic/Immunologic Allergic/Immunologic ED: Denies urticaria EXAM Physical Exam Narrative Exam Narrative: Patient is awake alert sitting comfortably in bed no acute distress. HEENT shows no trauma Heart is regular. No murmur. Normal pulses x4. Lungs are clear bilaterally. Takes good even deep breaths. Saturations are normal at 90% on room air showing no hypoxia. Abdomen is soft and nontender. Extremities show no deformity. She has some abrasions on the tibial tuberosity on the left and a little bit lateral to this. There is no knee effusion. Her extensor mechanism is intact and she can easily lift her ankle off the bed. There is mild nonfocal tenderness mostly in the anterior portion of the knee closest to the abrasion. Her knee is stable to inversion eversion and Bridget. Const Vital Signs: 11/28/22 18:24 Temperature 97.4 F L Temperature Source Temporal Pulse Rate 82 Respiratory Rate 16 Blood Pressure 110/62 Blood Pressure Mean 78 Pulse Ox 98 MDM MDM MDM Narrative Medical decision making narrative: My independent her potation the patient's 4 view x-ray of the left knee shows no sign of acute fracture. Final reading by radiology is negative. Dressing will be applied again. Patient was encouraged to use crutches or let others stay home and do the shopping. If she is already injured walking long distances are more likely to cause some problems for her. Range of motion is good but limitation is reasonable. She will follow-up with her primary physician. Radiography Diagnostic Testing: Clinical Impression(s) from Imaging Studies Knee X-Ray 11/28/22 18:58 IMPRESSION: Normal x-ray examination of the knee. Electronically Signed: Roldan Betancourt MD at 19:36 EDT , Discharge Plan Triage Chief Complaint: Lower Extremity Injury ED Provider: Ike Hatch Dx/Rx/DC Orders Clinical Impression: Fall from slip, trip, or stumble, Contusion of knee, left, Abrasion of knee, left Instructions: ED Knee Sprain Prescriptions: No Action ondansetron HCl 4 mg tablet 4 mg PO Q8H Trulicity 0.75 mg/0.5 mL pen injector 1.5 mg subcut QWEEK Jardiance 25 mg tablet 25 mg PO DAILY escitalopram oxalate 20 mg tablet 20 mg PO DAILY buspirone 5 mg tablet 5 mg PO TID PRN (Reason: Anxiety) Dupixent Pen 300 mg/2 mL pen injector 300 mg subcut Q2W Mirena 21 mcg/24 hours (8 yrs) 52 mg intrauterine device 1 device intrauterine ONCE Rx Instructions: as a single dose famotidine 20 mg tablet 20 mg PO QHS Qty: 90 3RF albuterol sulfate 1 INHALER inhaler 1 - 2 puff INHALATION Q4H PRN PRN (Reason: Wheezing) gabapentin 300 MG capsule 400 mg PO TID albuterol sulfate 2.5 MG/3 ML solution for nebulization 2.5 mg INHALATION Q4H PRN PRN (Reason: Dyspnea) Qty: 30 0RF atorvastatin 10 MG tablet 40 mg PO QHS hydrochlorothiazide 12.5 MG capsule 12.5 mg PO DAILY rizatriptan 10 MG tablet 10 mg PO X1 PRN (Reason: MIGRAINE SYMPTOMS) 0RF diphenhydramine HCl 25 MG capsule 50 mg PO TID PRN PRN (Reason: Rash/Topical Irritation) Qty: 14 0RF hydrocortisone 1 APPLIC cream 1 applic topical TID PRN PRN (Reason: Rash/Topical Irritation) Qty: 1 0RF primidone 50 mg tablet 200 mg PO QHS Patient Comments: take 4 tablets by mouth daily at bedtime baclofen 10 mg tablet 10 mg PO PRN PRN (Reason: MUSCLE RELAX) pantoprazole 40 mg tablet,delayed release (DR/EC) 40 mg PO DAILY Patient Comments: take 1 tablet by mouth once daily ON AN EMPTY STOMACH 30 MINUTES before breakfast ibuprofen [Motrin] 400 mg Tablet 400 mg PO Q6H PRN (Reason: Pain) pramipexole 0.25 mg tablet See Rx Instructions .ROUTE .COMPLEX Patient Comments: take 2 tablets by mouth at bedtime Rx Instructions: TAKE 2 TABS AT BEDTIME clindamycin HCl 300 mg capsule 300 mg PO Q8H 7 Days Qty: 21 0RF sulfamethoxazole-trimethoprim [Bactrim DS] 800-160 mg tablet 1 tab PO BID 7 Days Qty: 14 0RF cephalexin 500 mg capsule 500 mg PO Q8H 7 Days Qty: 21 0RF Primary Care Provider: Brandt Simpson Referrals: Brandt Simpson MD [Primary Care Provider] - 3-5 Days Disposition Disposition: Home, Self Care
[2022-11-28] MEDS: traMADol 50 MG Tablet PO (20:24)
[2022-11-28 20:30] VITALS: BP 108/76; PULSE 59; RESP 16; O2SAT 98
== END 2022-11-28 20:32 | disposition home or self-care (01) ==
LOC: ED 20:17
PROVIDERS: Emergency Provider Emergency Medicine; PCP Family Medicine; Visit Provider Emergency Medicine
DX: S80.02XA Contusion of left knee, initial encounter (principal); S80.212A Abrasion, left knee, initial encounter; F12.90 Cannabis use, unspecified, uncomplicated; F17.210 Nicotine dependence, cigarettes, uncomplicated; W19.XXXA Unspecified fall, initial encounter
CPT/HCPCS: 73564; 99284

== ENCOUNTER 2022-12-07 21:16 | Emergency (ER) | payer MEDICARE, MEDICAID, SELFPAY ==
[2022-12-07 21:17] VITALS: BP 130/74; PULSE 94; RESP 18; TEMP 36.3; O2SAT 100; BMI 22.2
--- NOTE | 2022-12-07 21:55 | RAD_ITS ---
INDICATION: trauma EXAMINATION/TECHNIQUE: X-RAY - LEFT XR Knee Complete 4 Views or More 4 VIEWS COMPARISON: November 28, 2022 left knee x-rays. FINDINGS: SOFT TISSUES: No soft tissue swelling or gas. No radiopaque foreign body. BONES/JOINTS: No acute fracture or malalignment. Preservation of the joint space and no degenerative bony proliferative changes. No sclerotic or destructive changes observed. RAD/Knee 4 or More Views IMPRESSION: Negative. Electronically Signed: Harinder Lanza DO at 22:15 EDT ,
--- NOTE | 2022-12-07 21:57 | ED.VIS.LOWEX ---
HPI History of Present Illness HPI Narrative: 47-year-old female fell twice in the last 2 weeks complaint left knee pain. Recent x-rays reportedly were negative. History of a meniscal tear. No prior knee surgery. No other complaints. Chief Complaint: Lower Extremity Injury Informant: patient and family Occured/Mechanism Mechanism/Context: Yes injury and Yes blunt trauma Onset/Context/Timing Onset: Weeks Context: Sudden Onset Timing: Continuous Quality of Pain: Dull and Aching Current Severity: Mild Maximum Severity: Mild Associated Symptoms Associated Symptoms: Negative for Parasthesia, Weakness or Loss of Funtion Narrative Narrative: 47-year-old female history of diabetes. Prior left meniscal tear in her knee. Fell 2 weeks ago on Thursday slipped on gravel at home injuring her left knee and then again at [facility] Thursday a week ago. Denies any other injuries. Says she is having pain in her knee. She was seen in the emergency department and had x-rays that reportedly were negative. She said the pain continues. Prior similar symptoms: No Recent Illness/Hospitalization: No PFSH PFSH Medical History Acid reflux disease Acquired saddle nose deformity Airway obstruction, anatomic Alcohol use Anxiety Arthritis Asthma Back pain Back problem Bilateral carpal tunnel syndrome Bladder infection Chronic GERD Chronic headaches Chronic neck pain Contusion of left eyelid and periocular area, initial encounter Contusion of nose, initial encounter Contusion of right eyelid and periocular area, sequela COPD (chronic obstructive pulmonary disease) Depression Deviated nasal septum Diabetes Difficulty swallowing Dysphagia Fall (on)(from) sidewalk curb, initial encounter Fall at home Fracture of orbital floor, blow-out, right, closed Fracture of orbital floor, right side, sequela Gallstones Gastric reflux Headache Hearing problem History of edema History of falling History of IBS History of pain when walking Hypertension Injury of head and neck Marijuana use Migraine headache Nasal septal perforation Nausea and vomiting Other specified disorders of nose and nasal sinuses Rheumatoid arteritis Seasonal allergies Shortness of breath on exertion Smoker Vision problems Home Medications albuterol sulfate 90 mcg/actuation aerosol inhaler 1 - 2 puff inhalation Q4H PRN PRN Wheezing 06/13/16 [History Last Taken 3 Days Ago ~01/26/19] gabapentin 300 mg capsule 400 mg PO TID nerve pain 07/25/16 [History Last Taken 01/29/19] albuterol sulfate 2.5 mg/3 mL (0.083 %) solution for nebulization 2.5 mg (3 mL) inhalation Q4H PRN PRN Dyspnea #30 vials 08/05/16 [Rx Last Taken 3 Days Ago ~01/26/19] atorvastatin 10 mg tablet 40 mg PO QHS CHOLESTEROL 10/10/17 [History Last Taken 1 Day Ago ~01/28/19] hydrochlorothiazide 12.5 mg capsule 12.5 mg PO DAILY SWELLING 02/09/18 [History Last Taken 01/29/19] rizatriptan 10 mg tablet 10 mg PO X1 PRN MIGRAINE SYMPTOMS 02/17/18 [Rx Last Taken 4 Days Ago ~01/25/19] diphenhydramine HCl 25 mg capsule 50 mg (2 x 25 mg) PO TID PRN PRN Rash/Topical Irritation #14 caps 09/19/19 [Rx Last Taken Unknown] hydrocortisone 2.5 % topical cream 1 applic topical TID PRN PRN Rash/Topical Irritation #1 tube 09/19/19 [Rx Last Taken Unknown] buspirone 5 mg tablet 5 mg PO TID PRN Anxiety 04/29/22 [History Last Taken Unknown] dulaglutide 0.75 mg/0.5 mL subcutaneous pen injector (Trulicity) 1.5 mg subcut QWEEK 04/29/22 [History Last Taken Unknown] dupilumab 300 mg/2 mL subcutaneous pen injector (Dupixent) 300 mg subcut Q2W 04/29/22 [History Last Taken Unknown] empagliflozin 25 mg tablet (Jardiance) 25 mg PO DAILY 04/29/22 [History Last Taken Unknown] escitalopram oxalate 20 mg tablet 20 mg PO DAILY 04/29/22 [History Last Taken Unknown] levonorgestrel 21 mcg/24 hours (8 yrs) 52 mg intrauterine device (Mirena) 1 device intrauterine ONCE 04/29/22 [History Last Taken Unknown] ondansetron HCl 4 mg tablet 4 mg PO Q8H 04/29/22 [History Last Taken Unknown] baclofen 10 mg tablet 10 mg PO PRN PRN MUSCLE RELAX 07/23/22 [History Last Taken Unknown] ibuprofen 400 mg tablet 400 mg PO Q6H PRN Pain 07/23/22 [History Last Taken Unknown] pantoprazole 40 mg tablet,delayed release 40 mg PO DAILY 07/23/22 [History Last Taken Unknown] pramipexole 0.25 mg tablet See Rx Instructions .Route .COMPLEX 07/23/22 [History Last Taken Unknown] primidone 50 mg tablet 200 mg PO QHS 07/23/22 [History Last Taken Unknown] famotidine 20 mg tablet 20 mg PO QHS #90 tabs 08/27/22 [Rx Last Taken Unknown] Allergy/AdvReac Type Severity Reaction Status Date / Time bee venom protein (honey bee) Allergy Angioedema Verified 12/07/22 21:20 mold Allergy Itching Verified 12/07/22 21:20 naproxen Allergy Nausea Verified 12/07/22 21:20 aloe vera [From Flexall] AdvReac Severe Nausea/Vom/ Verified 12/07/22 21:20 Diarrhea menthol [From Flexall] AdvReac Severe Nausea/Vom/ Verified 12/07/22 21:20 Diarrhea vitamin E (d-alpha AdvReac Severe Nausea/Vom/ Verified 12/07/22 21:20 tocopherol) Diarrhea [From Flexall] amoxicillin AdvReac Upset Verified 12/07/22 21:20 Stomach guaifenesin [From Robitussin] AdvReac Nausea Verified 12/07/22 21:20 shrimp AdvReac Vomiting Verified 12/07/22 21:20 Sulfa (Sulfonamide AdvReac Vomiting Verified 12/07/22 21:20 Antibiotics) Family History Unknown No problems noted. Surgical History Closed fracture of right orbital floor H/O section History of cholecystectomy History of nasal septoplasty History of nasal surgery Hx of tubal ligation Social History household members: family Smoking Status: Current every day smoker tobacco type: cigarettes alcohol intake: former substance use type: marijuana what type of physical activity do you participate in: walking seatbelt use: always additional social history: SUN EXPOSURE: FREQUENTLY ROS ROS ED ROS Narrative Denies recent illness. Review of Systems ROS Unobtainable: Denies due to encephalopathy Constitutional Constitutional ED: Denies chills or fever(s) Eyes Eyes: Denies blurry vision ENT ENT ED: Denies ear pain Cardiovascular Cardiovascular: Denies chest pain Respiratory/Chest Respiratory/Chest: Denies cough Gastrointestinal Gastrointestinal: Denies abdominal pain Genitourinary Genitourinary ED: Denies dysuria Musculoskeletal Musculoskeletal: Denies arthralgias Integumentary Denies abscess Neurologic Neurologic: Denies headache(s) Psychiatric Psychiatric: Denies anxiety Endocrine Endocrinology: Denies polydipsia Hematologic/Lymphatic Hematologic/Lymphatic: Denies easy bleeding or easy bruising Allergic/Immunologic Allergic/Immunologic ED: Denies mouth swelling or tongue swelling EXAM Physical Exam Narrative Exam Narrative: 47-year-old female vital signs stable afebrile. No acute distress. H EENT exam unremarkable atraumatic. C-spine nontender. Back and spine nontender. Lungs clear to auscultation bilaterally. Heart regular rate and rhythm no murmurs. Chest wall and ribs nontender. Abdomen soft nontender. Girdle intact. Hips nontender. Both upper extremities right lower extremity nontender full range of motion. Left hip ankle and foot nontender. Normal DP pulse. Normal dorsi plantarflexion. No deformity. Her left knee she has an abrasion. There is no significant swelling or effusion. No redness. No warmth. Mild abrasion. She is able to do flexion extension. Quadriceps patellar and infrapatellar tendon are intact. She can lift her leg off the bed. She is able do flexion and extension with discomfort. The ACL PCL, MCL and LCL appear to be intact. No bony deformity. She has a normal DP pulse of her left foot. Const Vital Signs: 12/07/22 21:17 Temperature 97.4 F L Temperature Source Temporal Pulse Rate 94 Respiratory Rate 18 Blood Pressure 130/74 H Blood Pressure Mean 92 Pulse Ox 100 Oxygen Delivery Method Room Air Positive well nourished and well developed; Negative for obese, cachectic, contractures or unkempt General Appearance ED: well developed and NAD; Negative for unkempt, cachectic or contractures Nutritional Appearance: Negative for cachectic or obese HEENT Reports moist mucous membranes normocephalic and atraumatic; Negative for trauma or tenderness Eyes PERRL General Eye ED: Negative for other Neck full ROM and supple Thyroid: Negative for tender Lymph Lymphatic: Negative for other Chest Wall inspection of chest normal and palpation of chest normal Chest: Negative for other Resp normal respiratory effort, no retractions and clear to auscultation bilaterally Effort and Inspection: Negative for pain with movement Auscultation: Negative for rales, rhonchi or wheezes Cardio regular rate, regular rhythm, S1 normal heart sound, S2 normal heart sound and no murmurs Rate: Negative for bradycardia or tachycardic Rhythm: Negative for abnormal rhythm Bruits: Negative for other GI non-tender, non-distended and no masses Inspection: Negative for abdominal distention Auscultation: normoactive bowel sounds Palpation: soft; Negative for tender or guarding Bladder / Kidney Exam: No other Back/Spine no CVA tenderness General Back: Negative for CVA tenderness Cervical Spine: Negative for cervical spine tenderness Thoracic Spine / Upper Back: Negative for thoracic spinal tenderness Lumbar Spine / Lower Back: Negative for lumbar spinal tenderness Extremity full ROM; Negative for normal to inspection Extremity Narrative: Tenderness of left knee. No effusion. Mild abrasions. Ligaments intact. Tendons intact. No deformity. Left foot neurovascular intact with normal DP pulse. General Extremety ED: Yes weight-bearing difficulty; Negative for cyanosis General Extremity: weight-bearing difficulty; Negative for cyanosis Neuro oriented x3, CN's II-XII intact bilaterally, moves all extremities and no sensory deficits noted Sensorium / Orientation: alert, oriented to person, oriented to place and oriented to time; Negative for orientation impaired, confused, lethargic or stuporous Motor Exam: strength 5/5 throughout Psych mental status grossly normal Appearance: Negative for unkempt Speech: No other Mood & Affect: Negative for anxious Skin no wounds Lesions: no lesions Rashes: no rashes Trauma: Negative for abrasion or laceration MDM MDM MDM Narrative Medical decision making narrative: 47-year-old left knee injury. X-ray being obtained. P[place] for pain. I did review patient's prior x-ray results which were negative. Denies x-ray was negative. This is either a knee contusion or it could be a meniscal tear I explained to her and her family that I could not rule that out with a plain x-ray. Continue use Tylenol Motrin for pain. She was given [place] here. Outpatient follow-up with one of the local orthopedic physicians if not proving. History & Record Review Discussion w/independent historian: Patient Additional record(s) reviewed:: Prior inpatient record, Prior outpatient record, Prior ED visit and Prior labs Radiography Diagnostic Testing: Clinical Impression(s) from Imaging Studies Knee X-Ray 12/07/22 21:55 IMPRESSION: Negative. Electronically Signed: Harinder Lanza DO at 22:15 EDT , Left knee x-ray 4 views, interpreted by myself and the radiologist shows no acute abnormality. No fracture. No dislocation. No significant effusion or swelling. Discharge Plan Triage Chief Complaint: Lower Extremity Injury ED Provider: Raji Sanabria Dx/Rx/DC Orders Clinical Impression: Contusion of knee, left Instructions: ED Contusion, Lower Extremity Prescriptions: No Action ondansetron HCl 4 mg tablet 4 mg PO Q8H Trulicity 0.75 mg/0.5 mL pen injector 1.5 mg subcut QWEEK Jardiance 25 mg tablet 25 mg PO DAILY escitalopram oxalate 20 mg tablet 20 mg PO DAILY buspirone 5 mg tablet 5 mg PO TID PRN (Reason: Anxiety) Dupixent Pen 300 mg/2 mL pen injector 300 mg subcut Q2W Mirena 21 mcg/24 hours (8 yrs) 52 mg intrauterine device 1 device intrauterine ONCE Rx Instructions: as a single dose famotidine 20 mg tablet 20 mg PO QHS Qty: 90 3RF albuterol sulfate 1 INHALER inhaler 1 - 2 puff INHALATION Q4H PRN PRN (Reason: Wheezing) gabapentin 300 MG capsule 400 mg PO TID albuterol sulfate 2.5 MG/3 ML solution for nebulization 2.5 mg INHALATION Q4H PRN PRN (Reason: Dyspnea) Qty: 30 0RF atorvastatin 10 MG tablet 40 mg PO QHS hydrochlorothiazide 12.5 MG capsule 12.5 mg PO DAILY rizatriptan 10 MG tablet 10 mg PO X1 PRN (Reason: MIGRAINE SYMPTOMS) 0RF diphenhydramine HCl 25 MG capsule 50 mg PO TID PRN PRN (Reason: Rash/Topical Irritation) Qty: 14 0RF hydrocortisone 1 APPLIC cream 1 applic topical TID PRN PRN (Reason: Rash/Topical Irritation) Qty: 1 0RF primidone 50 mg tablet 200 mg PO QHS Patient Comments: take 4 tablets by mouth daily at bedtime baclofen 10 mg tablet 10 mg PO PRN PRN (Reason: MUSCLE RELAX) pantoprazole 40 mg tablet,delayed release (DR/EC) 40 mg PO DAILY Patient Comments: take 1 tablet by mouth once daily ON AN EMPTY STOMACH 30 MINUTES before breakfast ibuprofen [Motrin] 400 mg Tablet 400 mg PO Q6H PRN (Reason: Pain) pramipexole 0.25 mg tablet See Rx Instructions .ROUTE .COMPLEX Patient Comments: take 2 tablets by mouth at bedtime Rx Instructions: TAKE 2 TABS AT BEDTIME Primary Care Provider: Brandt Simpson Referrals: Brandt Simpson MD [Primary Care Provider] - Oren Dominguez MD [Med Staff - Active Staff] - 1 Week if not improving Activity Restrictions/Additional Instructions: Ice and elevate your knee to decrease pain and swelling. Motrin for pain and swelling. Follow-up with orthopedic doctor if not improving. The x-ray showed no signs of any broken. Again on a plain x-ray you cannot see tendon, ligament or cartilage injuries. If is not improving you should be evaluated by orthopedic surgeon and they may or may not need to do an MRI. Disposition Disposition: Home, Self Care
[2022-12-07] MEDS: HYDROcodone Bitartrate/Apap 5/325 Tablet PO (22:50)
--- NOTE | 2022-12-07 22:52 | ED.RN ---
WALKED IN PT ROOM TO GIVE HIM SUN RAMOS PLAYING GAME ON HER TABLET. PT ASKED WHAT IS THIS? THIS RN STATED RICHARD. PT, OK CAUSE LAST TIME IS WAS HERE THEY DIDNT GIVE ME NOTHIN' FOR THE PAIN AND THEY DIDNT SEND ANYTHING HOME WITH ME FOR PAIN EITHER.
== END 2022-12-07 23:07 | disposition home or self-care (01) ==
PROVIDERS: Emergency Provider Emergency Medicine; PCP Family Medicine; Visit Provider Emergency Medicine
DX: S80.02XA Contusion of left knee, initial encounter (principal); F12.90 Cannabis use, unspecified, uncomplicated; F17.210 Nicotine dependence, cigarettes, uncomplicated; Z79.899 Other long term (current) drug therapy; W19.XXXA Unspecified fall, initial encounter
CPT/HCPCS: 73564; 99283

== ENCOUNTER 2022-12-14 10:12 | Emergency (ER) | payer MEDICARE, MEDICAID, SELFPAY ==
[2022-12-14 10:13] VITALS: BP 103/69; PULSE 97; RESP 14; TEMP 36.1; O2SAT 98
[2022-12-14 10:15] VITALS: BMI 26.7
--- NOTE | 2022-12-14 11:13 | RAD_ITS ---
STUDY: X-RAY - UNILATERAL RIBS ( LEFT ) WITH CHEST REASON FOR EXAM: Female, 47 years old. Fever and cough TECHNIQUE - RIBS: 3 view(s) of the ribs. TECHNIQUE - CHEST: Single PA view of the chest. COMPARISON: None. FINDINGS - RIBS: Normal visualized ribs without a demonstrated fracture. FINDINGS - CHEST: The lungs are clear and expanded. There is no demonstrated pleural abnormality. Normal size heart. Normal mediastinum and kishan. Normal visualized pulmonary arteries. Normal visualized aortic arch and descending thoracic aorta. Degenerative changes in the thoracic spine with a mild rotatory scoliotic curvature. Normal visualized ribs, clavicles, and shoulders. There is no demonstrated abnormality of the visualized soft tissue structures of the upper abdomen. RAD/Ribs Uni Min 3V w/PA Chest IMPRESSION: RIBS: Normal x-ray examination of the ribs. CHEST: No acute pulmonary process Electronically Signed: Darwin Britton MD at 11:42 EDT ,
--- NOTE | 2022-12-14 11:14 | ED.VIS.LOWEX ---
HPI History of Present Illness Chief Complaint: Lower Extremity Injury Narrative Narrative: 47-year-old female past medical history of asthma, diabetes, presents with continued pain in her left knee from a fall 2 weeks ago. She states that its been x-rayed 3 times, and she is still having pain. She was last seen on the , approximately 1 week ago. She stated to the RN that she is here for pain medication and that she has been unable to follow-up with her primary care physician or her orthopedic surgeon because she always gets put on hold and does not want to wait and states they are busy. She presents with crutches, and continued pain while trying to bear weight on her left knee. She does not like to wrap her left knee because it is itchy. She states that she has a brace at home but cannot find it currently, but knows that it is in her apartment. She states that she fell on it twice a few weeks ago, and at the same time mentioned casually that she has pain in her left lower ribs, but she denies any fevers or chills, no cough, no other symptoms. [facility] Medical History Acid reflux disease Acquired saddle nose deformity Airway obstruction, anatomic Alcohol use Anxiety Arthritis Asthma Back pain Back problem Bilateral carpal tunnel syndrome Bladder infection Chronic GERD Chronic headaches Chronic neck pain Contusion of left eyelid and periocular area, initial encounter Contusion of nose, initial encounter Contusion of right eyelid and periocular area, sequela COPD (chronic obstructive pulmonary disease) Depression Deviated nasal septum Diabetes Difficulty swallowing Dysphagia Fall (on)(from) sidewalk curb, initial encounter Fall at home Fracture of orbital floor, blow-out, right, closed Fracture of orbital floor, right side, sequela Gallstones Gastric reflux Headache Hearing problem History of edema History of falling History of IBS History of pain when walking Hypertension Injury of head and neck Marijuana use Migraine headache Nasal septal perforation Nausea and vomiting Other specified disorders of nose and nasal sinuses Rheumatoid arteritis Seasonal allergies Shortness of breath on exertion Smoker Vision problems Home Medications albuterol sulfate 90 mcg/actuation aerosol inhaler 1 - 2 puff inhalation Q4H PRN PRN Wheezing 06/13/16 [History Last Taken 3 Days Ago ~01/26/19] gabapentin 300 mg capsule 400 mg PO TID nerve pain 07/25/16 [History Last Taken 01/29/19] albuterol sulfate 2.5 mg/3 mL (0.083 %) solution for nebulization 2.5 mg (3 mL) inhalation Q4H PRN PRN Dyspnea #30 vials 08/05/16 [Rx Last Taken 3 Days Ago ~01/26/19] atorvastatin 10 mg tablet 40 mg PO QHS CHOLESTEROL 10/10/17 [History Last Taken 1 Day Ago ~01/28/19] hydrochlorothiazide 12.5 mg capsule 12.5 mg PO DAILY SWELLING 02/09/18 [History Last Taken 01/29/19] rizatriptan 10 mg tablet 10 mg PO X1 PRN MIGRAINE SYMPTOMS 02/17/18 [Rx Last Taken 4 Days Ago ~01/25/19] diphenhydramine HCl 25 mg capsule 50 mg (2 x 25 mg) PO TID PRN PRN Rash/Topical Irritation #14 caps 09/19/19 [Rx Last Taken Unknown] hydrocortisone 2.5 % topical cream 1 applic topical TID PRN PRN Rash/Topical Irritation #1 tube 09/19/19 [Rx Last Taken Unknown] buspirone 5 mg tablet 5 mg PO TID PRN Anxiety 04/29/22 [History Last Taken Unknown] dulaglutide 0.75 mg/0.5 mL subcutaneous pen injector (Trulicity) 1.5 mg subcut QWEEK 04/29/22 [History Last Taken Unknown] dupilumab 300 mg/2 mL subcutaneous pen injector (Dupixent) 300 mg subcut Q2W 04/29/22 [History Last Taken Unknown] empagliflozin 25 mg tablet (Jardiance) 25 mg PO DAILY 04/29/22 [History Last Taken Unknown] escitalopram oxalate 20 mg tablet 20 mg PO DAILY 04/29/22 [History Last Taken Unknown] levonorgestrel 21 mcg/24 hours (8 yrs) 52 mg intrauterine device (Mirena) 1 device intrauterine ONCE 04/29/22 [History Last Taken Unknown] ondansetron HCl 4 mg tablet 4 mg PO Q8H 04/29/22 [History Last Taken Unknown] baclofen 10 mg tablet 10 mg PO PRN PRN MUSCLE RELAX 07/23/22 [History Last Taken Unknown] ibuprofen 400 mg tablet 400 mg PO Q6H PRN Pain 07/23/22 [History Last Taken Unknown] pantoprazole 40 mg tablet,delayed release 40 mg PO DAILY 07/23/22 [History Last Taken Unknown] pramipexole 0.25 mg tablet See Rx Instructions .Route .COMPLEX 07/23/22 [History Last Taken Unknown] primidone 50 mg tablet 200 mg PO QHS 07/23/22 [History Last Taken Unknown] famotidine 20 mg tablet 20 mg PO QHS #90 tabs 08/27/22 [Rx Last Taken Unknown] hydrocodone-acetaminophen 5-325mg 5mg-325mg 1 tab PO Q4H PRN PRN Pain 3 days #8 TABLETS 12/07/22 [Rx Last Taken Unknown] Allergy/AdvReac Type Severity Reaction Status Date / Time bee venom protein (honey bee) Allergy Angioedema Verified 12/14/22 10:12 mold Allergy Itching Verified 12/14/22 10:12 naproxen Allergy Nausea Verified 12/14/22 10:12 aloe vera [From Flexall] AdvReac Severe Nausea/Vom/ Verified 12/14/22 10:12 Diarrhea menthol [From Flexall] AdvReac Severe Nausea/Vom/ Verified 12/14/22 10:12 Diarrhea vitamin E (d-alpha AdvReac Severe Nausea/Vom/ Verified 12/14/22 10:12 tocopherol) Diarrhea [From Flexall] amoxicillin AdvReac Upset Verified 12/14/22 10:12 Stomach guaifenesin [From Robitussin] AdvReac Nausea Verified 12/14/22 10:12 shrimp AdvReac Vomiting Verified 12/14/22 10:12 Sulfa (Sulfonamide AdvReac Vomiting Verified 12/14/22 10:12 Antibiotics) Family History Unknown No problems noted. Surgical History Closed fracture of right orbital floor H/O section History of cholecystectomy History of nasal septoplasty History of nasal surgery Hx of tubal ligation Social History household members: family Smoking Status: Current every day smoker tobacco type: cigarettes alcohol intake: former substance use type: marijuana what type of physical activity do you participate in: walking seatbelt use: always additional social history: SUN EXPOSURE: FREQUENTLY ROS ROS ED ROS Narrative Constitutional: No fever, no chills. HEENT: No sore throat. No neck pain. No loss of vision. No rhinorrhea. Cardiovascular: Lower ribs/chest pain. No palpitations. No pedal edema. Respiratory: No cough, no shortness of breath. Abdominal: No abdominal pain. No nausea. No vomiting. Genitourinary: No dysuria. No hematuria. Musculoskeletal: No myalgias. Left knee pain x4 weeks. Neurologic: No headaches. No dizziness. No lightheadedness. Skin: No rash. No change in color. Psychiatric: No depression. No anxiety. EXAM Physical Exam Narrative Exam Narrative: Afebrile. Vital signs noted. HEENT: Normocephalic. Atraumatic. PERRL, EOMI. Neck soft and supple. No point tenderness or step off. Cardiovascular: Regular rate and rhythm. No murmurs, rubs, or gallops appreciated. Tenderness to palpation left lateral without crepitance. Respiratory: No tachypnea. Lungs clear to auscultation bilaterally. Gastrointestinal: Abdomen soft, nontender, with normoactive bowel sounds. No rebound or guarding. Neurological: Awake. Alert. Nonfocal, nonlateralizing. Skin: No rash. Normal color. No pallor. Musculoskeletal: No pedal edema. Full range of motion extremities. Extension left knee intact. Palpable dorsalis pedis pulse. Able to raise left leg off bed without difficulty. No swelling or erythema noted. Const Vital Signs: 12/14/22 10:13 Temperature 97 F L Temperature Source Temporal Pulse Rate 97 Respiratory Rate 14 Blood Pressure 103/69 Blood Pressure Mean 80 Pulse Ox 98 Oxygen Delivery Method Room Air MDM MDM MDM Narrative Medical decision making narrative: The patient's prior records. She states she is here for pain medication on a knee injury from weeks ago. I reviewed her prior records, and see that she was told that she may need outpatient imaging such as MRI and that plain films do not detect meniscal tears or ligament damage. I stressed the importance of her following up with orthopedic surgery, she was told that narcotic pain medication prescription needs to come from her primary care provider or orthopedics. She was given 1 [place] tablet here and she will continue her Tylenol and [id number] medications. As she states that she had mentioned previously that she was having rib pain and is having continued rib pain, I will x-ray her left ribs, but I have low suspicion for fracture or pneumothorax. Strays of the left ribs interpreted by myself independently show no evidence of acute fracture of the ribs or pneumothorax. I reviewed the radiology report which confirms my independent interpretation. At this point in time, I feel she be discharged safely home to follow-up with orthopedics and her primary care physician. Disposition is discharged home in stable condition. Radiography Diagnostic Testing: Clinical Impression(s) from Imaging Studies Ribs w/Chest X-Ray 12/14/22 11:13 IMPRESSION: RIBS: Normal x-ray examination of the ribs. CHEST: No acute pulmonary process Electronically Signed: Darwin Britton MD at 11:42 EDT , Discharge Plan Triage Chief Complaint: Lower Extremity Injury ED Provider: Emil Christie Dx/Rx/DC Orders Clinical Impression: Rib pain on left side, Knee pain Instructions: ED Meniscal Injury Knee Poss, ED Bruise, Rib Prescriptions: No Action ondansetron HCl 4 mg tablet 4 mg PO Q8H Trulicity 0.75 mg/0.5 mL pen injector 1.5 mg subcut QWEEK Jardiance 25 mg tablet 25 mg PO DAILY escitalopram oxalate 20 mg tablet 20 mg PO DAILY buspirone 5 mg tablet 5 mg PO TID PRN (Reason: Anxiety) Dupixent Pen 300 mg/2 mL pen injector 300 mg subcut Q2W Mirena 21 mcg/24 hours (8 yrs) 52 mg intrauterine device 1 device intrauterine ONCE Rx Instructions: as a single dose famotidine 20 mg tablet 20 mg PO QHS Qty: 90 3RF albuterol sulfate 1 INHALER inhaler 1 - 2 puff INHALATION Q4H PRN PRN (Reason: Wheezing) gabapentin 300 MG capsule 400 mg PO TID albuterol sulfate 2.5 MG/3 ML solution for nebulization 2.5 mg INHALATION Q4H PRN PRN (Reason: Dyspnea) Qty: 30 0RF atorvastatin 10 MG tablet 40 mg PO QHS hydrochlorothiazide 12.5 MG capsule 12.5 mg PO DAILY rizatriptan 10 MG tablet 10 mg PO X1 PRN (Reason: MIGRAINE SYMPTOMS) 0RF diphenhydramine HCl 25 MG capsule 50 mg PO TID PRN PRN (Reason: Rash/Topical Irritation) Qty: 14 0RF hydrocortisone 1 APPLIC cream 1 applic topical TID PRN PRN (Reason: Rash/Topical Irritation) Qty: 1 0RF primidone 50 mg tablet 200 mg PO QHS Patient Comments: take 4 tablets by mouth daily at bedtime baclofen 10 mg tablet 10 mg PO PRN PRN (Reason: MUSCLE RELAX) pantoprazole 40 mg tablet,delayed release (DR/EC) 40 mg PO DAILY Patient Comments: take 1 tablet by mouth once daily ON AN EMPTY STOMACH 30 MINUTES before breakfast ibuprofen [Motrin] 400 mg Tablet 400 mg PO Q6H PRN (Reason: Pain) pramipexole 0.25 mg tablet See Rx Instructions .ROUTE .COMPLEX Patient Comments: take 2 tablets by mouth at bedtime Rx Instructions: TAKE 2 TABS AT BEDTIME hydrocodone-acetaminophen 5-325 mg tablet 1 tab PO Q4H PRN PRN (Reason: Pain) 3 Days Qty: 8 0RF Primary Care Provider: Brandt Simpson Referrals: Brandt Simpson MD [Primary Care Provider] - 1 Day Jerry Tran MD [Med Staff - Active Staff] - As soon as possible Activity Restrictions/Additional Instructions: Follow-up with orthopedics as soon as possible. Make an appointment as you are instructed previously last week. Narcotic pain medication should come from your primary care provider, or pain management. Make an appointment with your primary care provider as soon as possible. Call tomorrow. Disposition Disposition: Home, Self Care
[2022-12-14] MEDS: HYDROcodone Bitartrate/Apap 5/325 Tablet PO (11:31)
[2022-12-14 12:04] VITALS: BP 113/69
== END 2022-12-14 12:05 | disposition home or self-care (01) ==
PROVIDERS: Emergency Provider Emergency Medicine; PCP Family Medicine; Visit Provider Emergency Medicine
DX: R07.81 Pleurodynia (principal); M25.562 Pain in left knee; F12.90 Cannabis use, unspecified, uncomplicated; F17.210 Nicotine dependence, cigarettes, uncomplicated; W19.XXXA Unspecified fall, initial encounter
CPT/HCPCS: 71101; 99282

== ENCOUNTER 2023-01-23 20:11 | Emergency (ER) | payer MEDICARE, MEDICAID, SELFPAY ==
[2023-01-23 20:13] VITALS: BP 121/69; PULSE 90; RESP 16; TEMP 36.1; O2SAT 100; BMI 20.6
--- NOTE | 2023-01-23 21:37 | EX.ED.GENINJ ---
HPI History of Present Illness Chief Complaint: Other, Pain/Inj Informant: patient Narrative Narrative: Patient is a 47-year-old female with history of ongoing left knee pain and swelling presenting with worsening pain. Patient had a fall about 2 months ago. She had a couple ER visits and followed up ultimately with [facility] orthopedics. She thinks it was Dr. Simpson. She states that she had an MRI that showed fluid on her knee. She expresses frustration because she was told that they will not drain the fluid off. She thinks the fluids cause a lot of her pain. She is got to the point that she cannot walk or do anything because of this pain. She does not wear her brace because she feels it does not help. She has no help from NSAIDs or Tylenol. She denies any fever or new injuries. She has an appointment to see Dr. Paniagua on Thursday (3 days from now) for second opinion. She states the pain is getting so bad that her leg started to swell now and she started to get tingling going down her leg into her foot. When she spoke to the real estate legal secretary for [facility] she was told she should come to the ER to see about getting pain medicine or further help with her pain control which is why she came to the ER today. [facility] Medical History Acid reflux disease Acquired saddle nose deformity Airway obstruction, anatomic Alcohol use Anxiety Arthritis Asthma Back pain Back problem Bilateral carpal tunnel syndrome Bladder infection Chronic GERD Chronic headaches Chronic neck pain Contusion of left eyelid and periocular area, initial encounter Contusion of nose, initial encounter Contusion of right eyelid and periocular area, sequela COPD (chronic obstructive pulmonary disease) Depression Deviated nasal septum Diabetes Difficulty swallowing Dysphagia Fall (on)(from) sidewalk curb, initial encounter Fall at home Fracture of orbital floor, blow-out, right, closed Fracture of orbital floor, right side, sequela Gallstones Gastric reflux Headache Hearing problem History of edema History of falling History of IBS History of pain when walking Hypertension Injury of head and neck Marijuana use Migraine headache Nasal septal perforation Nausea and vomiting Other specified disorders of nose and nasal sinuses Rheumatoid arteritis Seasonal allergies Shortness of breath on exertion Smoker Vision problems Home Medications albuterol sulfate 90 mcg/actuation aerosol inhaler 1 - 2 puff inhalation Q4H PRN PRN Wheezing 06/13/16 [History Last Taken 3 Days Ago ~01/26/19] gabapentin 300 mg capsule 400 mg PO TID nerve pain 07/25/16 [History Last Taken 01/29/19] albuterol sulfate 2.5 mg/3 mL (0.083 %) solution for nebulization 2.5 mg (3 mL) inhalation Q4H PRN PRN Dyspnea #30 vials 08/05/16 [Rx Last Taken 3 Days Ago ~01/26/19] atorvastatin 10 mg tablet 40 mg PO QHS CHOLESTEROL 10/10/17 [History Last Taken 1 Day Ago ~01/28/19] hydrochlorothiazide 12.5 mg capsule 12.5 mg PO DAILY SWELLING 02/09/18 [History Last Taken 01/29/19] rizatriptan 10 mg tablet 10 mg PO X1 PRN MIGRAINE SYMPTOMS 02/17/18 [Rx Last Taken 4 Days Ago ~01/25/19] diphenhydramine HCl 25 mg capsule 50 mg (2 x 25 mg) PO TID PRN PRN Rash/Topical Irritation #14 caps 09/19/19 [Rx Last Taken Unknown] hydrocortisone 2.5 % topical cream 1 applic topical TID PRN PRN Rash/Topical Irritation #1 tube 09/19/19 [Rx Last Taken Unknown] buspirone 5 mg tablet 5 mg PO TID PRN Anxiety 04/29/22 [History Last Taken Unknown] dulaglutide 0.75 mg/0.5 mL subcutaneous pen injector (Trulicity) 1.5 mg subcut QWEEK 04/29/22 [History Last Taken Unknown] dupilumab 300 mg/2 mL subcutaneous pen injector (Dupixent) 300 mg subcut Q2W 04/29/22 [History Last Taken Unknown] empagliflozin 25 mg tablet (Jardiance) 25 mg PO DAILY 04/29/22 [History Last Taken Unknown] escitalopram oxalate 20 mg tablet 20 mg PO DAILY 04/29/22 [History Last Taken Unknown] levonorgestrel 21 mcg/24 hours (8 yrs) 52 mg intrauterine device (Mirena) 1 device intrauterine ONCE 04/29/22 [History Last Taken Unknown] ondansetron HCl 4 mg tablet 4 mg PO Q8H 04/29/22 [History Last Taken Unknown] baclofen 10 mg tablet 10 mg PO PRN PRN MUSCLE RELAX 07/23/22 [History Last Taken Unknown] ibuprofen 400 mg tablet 400 mg PO Q6H PRN Pain 07/23/22 [History Last Taken Unknown] pantoprazole 40 mg tablet,delayed release 40 mg PO DAILY 07/23/22 [History Last Taken Unknown] pramipexole 0.25 mg tablet See Rx Instructions .Route .COMPLEX 07/23/22 [History Last Taken Unknown] primidone 50 mg tablet 200 mg PO QHS 07/23/22 [History Last Taken Unknown] famotidine 20 mg tablet 20 mg PO QHS #90 tabs 08/27/22 [Rx Last Taken Unknown] hydrocodone-acetaminophen 5-325mg 5mg-325mg 1 tab PO Q4H PRN PRN Pain 3 days #8 TABLETS 12/07/22 [Rx Last Taken Unknown] hydrocodone-acetaminophen 5-325mg 5mg-325mg 1 tab PO QHS PRN pain 4 days #4 TABLETS 01/23/23 [Rx Last Taken Unknown] Allergy/AdvReac Type Severity Reaction Status Date / Time bee venom protein (honey bee) Allergy Angioedema Verified 01/23/23 20:12 mold Allergy Itching Verified 01/23/23 20:12 naproxen Allergy Nausea Verified 01/23/23 20:12 aloe vera [From Flexall] AdvReac Severe Nausea/Vom/ Verified 01/23/23 20:12 Diarrhea menthol [From Flexall] AdvReac Severe Nausea/Vom/ Verified 01/23/23 20:12 Diarrhea vitamin E (d-alpha AdvReac Severe Nausea/Vom/ Verified 01/23/23 20:12 tocopherol) Diarrhea [From Flexall] amoxicillin AdvReac Upset Verified 01/23/23 20:12 Stomach guaifenesin [From Robitussin] AdvReac Nausea Verified 01/23/23 20:12 shrimp AdvReac Vomiting Verified 01/23/23 20:12 Sulfa (Sulfonamide AdvReac Vomiting Verified 01/23/23 20:12 Antibiotics) Family History Unknown No problems noted. Surgical History Closed fracture of right orbital floor H/O section History of cholecystectomy History of nasal septoplasty History of nasal surgery Hx of tubal ligation Social History household members: family Smoking Status: Current every day smoker tobacco type: cigarettes alcohol intake: former substance use type: marijuana what type of physical activity do you participate in: walking seatbelt use: always additional social history: SUN EXPOSURE: FREQUENTLY ROS ROS ED Constitutional Constitutional ED: Denies chills or fever(s) Gastrointestinal Gastrointestinal: Denies nausea Musculoskeletal Musculoskeletal: Reports other Details: left knee pain/ swelling Integumentary Denies rash Neurologic Neurologic: Reports paresthesias; Denies headache(s) or weakness Hematologic/Lymphatic Hematologic/Lymphatic: Denies easy bleeding or easy bruising EXAM Physical Exam Const Vital Signs: 01/23/23 20:13 Temperature 97 F L Temperature Source Temporal Pulse Rate 90 Respiratory Rate 16 Blood Pressure 121/69 H Blood Pressure Mean 86 Pulse Ox 100 Positive well nourished and well developed General Appearance ED: well developed and NAD HEENT atraumatic Chest Wall inspection of chest normal Resp normal respiratory effort Cardio regular rhythm Rate: regular rate Extremity Extremity Narrative: No deformity of the lower extremities. Very subtle nonpitting edema noted of the left lower extremity. Very subtle joint effusion noted of the left knee. No short arc range of motion pain. Able to range of motion the knee without any significant pain. No deformity of the knee appreciated. No palpable cords. Compartments are soft in the calf. 2+ DP pulse on the left. Subjective paresthesias noted of the left foot diffusely. Normal extensor mechanism. Neuro oriented x3, moves all extremities and no focal motor deficits Neuro Narrative: Subjective paresthesias to the left foot however can still feel light touch. Motor Exam: strength 5/5 throughout Psych mental status grossly normal and thought process normal Skin no rashes or lesions noted and no wounds MDM MDM MDM Narrative Medical decision making narrative: Patient's evaluated for ongoing and worsening left knee pain. She has been following up appropriately and has an appointment for second opinion on Thursday. She states the pain got so bad she is not sleeping at night. She will be given a very short course of [place] for pain control to help her sleep over the next few nights until she can follow-up with orthopedics. I do not think she has a septic joint. She had no new injury or trauma I do not think she requires repeat imaging. There is no significant effusion on physical exam I do not think she would benefit from joint aspiration at this time. Low suspicion for DVT given that her main complaint is just her knee pain has been ongoing. Patient is counseled that she would likely not receive any further refills of pain medicine in the ER and if orthopedics on Thursday chooses not to give her any further pain medicine the ER cannot override that. She does verbalize understanding of this. Discharge Plan Triage Chief Complaint: Other, Pain/Inj ED Provider: Veronica Ma Dx/Rx/DC Orders Clinical Impression: Chronic pain of left knee Instructions: ED Pain Management: Chronic Prescriptions: New hydrocodone-acetaminophen 5-325 mg tablet 1 tab PO QHS PRN (Reason: pain) 4 Days Qty: 4 0RF No Action ondansetron HCl 4 mg tablet 4 mg PO Q8H Trulicity 0.75 mg/0.5 mL pen injector 1.5 mg subcut QWEEK Jardiance 25 mg tablet 25 mg PO DAILY escitalopram oxalate 20 mg tablet 20 mg PO DAILY buspirone 5 mg tablet 5 mg PO TID PRN (Reason: Anxiety) Dupixent Pen 300 mg/2 mL pen injector 300 mg subcut Q2W Mirena 21 mcg/24 hours (8 yrs) 52 mg intrauterine device 1 device intrauterine ONCE Rx Instructions: as a single dose famotidine 20 mg tablet 20 mg PO QHS Qty: 90 3RF albuterol sulfate 1 INHALER inhaler 1 - 2 puff INHALATION Q4H PRN PRN (Reason: Wheezing) gabapentin 300 MG capsule 400 mg PO TID albuterol sulfate 2.5 MG/3 ML solution for nebulization 2.5 mg INHALATION Q4H PRN PRN (Reason: Dyspnea) Qty: 30 0RF atorvastatin 10 MG tablet 40 mg PO QHS hydrochlorothiazide 12.5 MG capsule 12.5 mg PO DAILY rizatriptan 10 MG tablet 10 mg PO X1 PRN (Reason: MIGRAINE SYMPTOMS) 0RF diphenhydramine HCl 25 MG capsule 50 mg PO TID PRN PRN (Reason: Rash/Topical Irritation) Qty: 14 0RF hydrocortisone 1 APPLIC cream 1 applic topical TID PRN PRN (Reason: Rash/Topical Irritation) Qty: 1 0RF primidone 50 mg tablet 200 mg PO QHS Patient Comments: take 4 tablets by mouth daily at bedtime baclofen 10 mg tablet 10 mg PO PRN PRN (Reason: MUSCLE RELAX) pantoprazole 40 mg tablet,delayed release (DR/EC) 40 mg PO DAILY Patient Comments: take 1 tablet by mouth once daily ON AN EMPTY STOMACH 30 MINUTES before breakfast ibuprofen [Motrin] 400 mg Tablet 400 mg PO Q6H PRN (Reason: Pain) pramipexole 0.25 mg tablet See Rx Instructions .ROUTE .COMPLEX Patient Comments: take 2 tablets by mouth at bedtime Rx Instructions: TAKE 2 TABS AT BEDTIME hydrocodone-acetaminophen 5-325 mg tablet 1 tab PO Q4H PRN PRN (Reason: Pain) 3 Days Qty: 8 0RF Primary Care Provider: Brandt Simpson Referrals: Brandt Simpson MD [Primary Care Provider] - Activity Restrictions/Additional Instructions: Please follow-up with your orthopedist on Thursday as we discussed. Continue ibuprofen and Tylenol. You been given a short course of stronger pain medicine ([place]) to take at night to help you get some sleep. The ER would not be able to fill this further if your primary care doctor or orthopedist does not feel that you need further opioid/prescription pain medication. Disposition Disposition: Home, Self Care
[2023-01-23] MEDS: HYDROcodone Bitartrate/Apap 5/325 Tablet PO (21:53)
== END 2023-01-23 21:58 | disposition home or self-care (01) ==
PROVIDERS: Emergency Provider Emergency Medicine; PCP Family Medicine; Visit Provider Emergency Medicine
DX: M25.562 Pain in left knee (principal); G89.29 Other chronic pain; F17.210 Nicotine dependence, cigarettes, uncomplicated; F12.90 Cannabis use, unspecified, uncomplicated
CPT/HCPCS: 99282

== ENCOUNTER → 2023-04-27 | Outpatient (CLI) | payer MEDICARE, MEDICAID, SELFPAY ==
[2023-04-27 15:37] LABS: Red Blood Cells-Urine 0 SEEN /hpf (0-5)
--- OUTSIDE RECORDS SUMMARY | 2023-04-27 15:59 | XMS RPT_ITS | CCD ---
Author Name Unknown Address [id number] [place] [address] Organization [facility] Care Team Providers Care Business Asst Name Role Phone JEVON CAT Unavailable Unavailable TIMMY PARK Unavailable Unavailable TIMMY PARK Unavailable Unavailable EMORY JEVON FMeghana Unavailable Unavailable EMORY, JEVON FMeghana Unavailable Unavailable TIMMY PARK Unavailable Unavailable ROXANNAANDREA Unavailable Unavailable ROXANNAANDREA Unavailable Unavailable TIMMY PARK H Unavailable Unavailable ROXANNAANDREA E Unavailable Unavailable TIMMY PARK H Unavailable Unavailable PROVIDER, UNKNOWN Unavailable Unavailable DIOP, ANDRÉS Unavailable Unavailable TIMMY PARK H Unavailable Unavailable DIOP, ANDRÉS Unavailable Unavailable DIOP, ANDRÉS Unavailable Unavailable DIOP, ANDRÉS Unavailable Unavailable DIOP, ANDRÉS Unavailable Unavailable DIOP, ANDRÉS Unavailable Unavailable Xavier, Timmy Unavailable Unavailable Xavier, Timmy Unavailable Unavailable DIOP, ANDRÉS Unavailable Unavailable DIOP, ANDRÉS Unavailable Unavailable Xavier, Timmy Unavailable Unavailable DIOP, ANDRÉS Unavailable Unavailable Xavier, Timmy Unavailable Unavailable DIOP, ANDRÉS Unavailable Unavailable Park, Timmy Unavailable Unavailable Timmy Park MD Unavailable Timmy Park MD Primary Care Provider Timmy Park MD Unavailable Timmy Park MD Primary Care Provider Timmy Park MD Unavailable Timmy Park MD Primary Care Provider Park MD, Lora Primary Care Provider Krystyna Simpson MD Primary Care Provider Pcp HYDROPONICS GROWER, No Primary Care Provider Unavailabl e Pcp HYDROPONICS GROWER, No Primary Care Provider Unavailabl e Pcp HYDROPONICS GROWER, No Primary Care Provider Unavailabl e Pcp HYDROPONICS GROWER, No Primary Care Provider Unavailabl e PARK, LORA Primary Care Unavailable JENNIFER GALLARDO Attending Unavailable [facility] Referring Unavailable PARK, LORA Primary Care Unavailable OLDER, PATRICIA Attending Unavailable PARK, LORA Primary Care Unavailable OLDER, PATRICIA Attending Unavailable XAVIER, LORA Primary Care Unavailable KRYSTYNA SIMPSON Attending Unavailab KAILEE Gardiner Attending Unavailable KRYTSYNA SIMPSON Primary Care Unavailab KRYSTYNA Diaz Primary Care Unavailab JENNIFER Bertrand Attending Unavailable KRYSTYNA SIMPSON Referring Unavailab KRYSTYNA Diaz Primary Care Unavailab KRYSTYNA Diaz Attending Unavailab FROY Stein Attending Unavailable KRYSTYNA SIMPSON Referring Unavailab le PARK, LORA Primary Care Unavailable OLDER, PATRICIA Referring Unavailable PARK, LORA Primary Care Unavailable PARK, LORA Attending Unavailable FROY GORDON Referring Unavailable PARK, LORA Primary Care Unavailable OLDER, PATRICIA Referring Unavailable PARK, LORA Primary Care Unavailable PARK, LORA Attending Unavailable KRYSTYNA SIMPSON Referring Unavailab le PARK, LORA Primary Care Unavailable JENNIFER GALLARDO Attending Unavailable JENNIFER GALLARDO Referring Unavailable KRYSTYNA SIMPSON Primary Care Unavailab SUSAN Flores DO Attending Unavailable PHYSICIAN, NONE Primary Care Unavailable Allergies Allergy Classification Reported Allergen(s) Allergy Type Date of Onset Reaction(s) Facility (4 sources) adenine; Translations: [NAPROXEN] Drug Allergy 01-14-20 [facility] Repository (4 sources) corticotropin; Translations: [AMOXICILLIN] Drug Allergy 04-16-19 [facility] Repository (1 source) ROBITUSSIN COUGH+CHEST CONGESTION DM MAX Drug allergy (disorder) [facility] Repository (20 sources) Dust; Translations: [DUST] Propensity to adverse reactions (disorder) 12-12-19 06 [facility] Other [place] Repository (20 sources) House dust mite; Translations: [DUST MITES] Propensity to adverse reactions (disorder) 12-12-19 [facility] Repository (20 sources) Pollen; Translations: [POLLEN] Propensity to adverse reactions (disorder) 12-12-19 06 [facility] Other [place] Repository (3 sources) OTHER; Translations: [OTHER] Propensity to adverse reactions (disorder) 12-12-19 [facility] Other [place] Repository (20 sources) Aloe vera preparation; Translations: [ALOE VERA] Drug Allergy 07-03-19 21 GI Upset [facility] Work Phone: (20 sources) Amoxicillin Drug Allergy 04-16-19 18 GI Upset [facility] Work Phone: (20 sources) Cat; Translations: [CATS] Allergy to substance 12-16-19 Unknown [facility] Work Phone: (20 sources) Corticotropin; Translations: [CORTICOTROPIN] Drug Allergy 02-17-20 18 GI Upset [facility] Work Phone: (20 sources) cyclobenzaprine; Translations: [CYCLOBENZAPRINE] Drug Allergy 04-26-19 21 Vomiting [facility] (20 sources) Dextromethorphan / guaiFENesin; Translations: [DEXTROMETHORPHAN-G UAIFENESIN] Drug Allergy 12-16-19 GI Upset [facility] Work Phone: (20 sources) guaiFENesin; Translations: [GUAIFENESIN] Drug Allergy 02-22-20 17 GI Upset [facility] Work Phone: (20 sources) Menthol; Translations: [MENTHOL] Drug Allergy 07-03-19 21 GI Upset [facility] Work Phone: (20 sources) Mold Extract; Translations: [MOLD] Drug Allergy 02-22-20 17 Itching [facility] Work Phone: (20 sources) Naproxen Drug Allergy 01-14-20 14 GI Upset, Other: See Comments [facility] (20 sources) Pollen; Translations: [POLLEN EXTRACTS] Drug Allergy 12-16-19 20 Itching [facility] Work Phone: (20 sources) shrimp allergenic extract; Translations: [SHRIMP] Drug Allergy 11-07-19 19 Vomiting [facility] Work Phone: (20 sources) Sulfonamides (Antibiotic); Translations: [SULFA (SULFONAMIDE ANTIBIOTICS)] Drug Allergy 05-04-19 19 Vomiting [facility] Work Phone: (20 sources) Vitamin E; Translations: [VITAMIN E] Drug Allergy 07-03-19 21 Vomiting [facility] Work Phone: (20 sources) BEE STINGS [Other] Propensity to adverse reactions 12-12-19 06 [facility] Work Phone: (20 sources) alpha Tocopherol Drug Allergy 07-03-19 21 Vomiting [facility] Work Phone: (19 sources) atorvastatin; Translations: [ATORVASTATIN] Drug Allergy 11-26-19 23 GI Upset [facility] Work Phone: Medications Current Medications Medication Drug Class(es) Dates Sig (Normalized) Sig (Original) escitalopram 20 mg oral tablet (20 sources) Serotonin Reuptake Inhibitor Start: 06-28-2021 End: 02-20-2023 take 1 tablet by mouth once daily escitalopram oxalate (LEXAPRO) 20 mg tablet Take 1 tablet by mouth once daily. 30 tablet 0 01/21/2023 02/20/2023 Active Completed/Discontinued Medications Medication Drug Class(es) Dates Sig (Normalized) Sig (Original) [id number] 200 actuat albuterol 0.09 mg/actuat metered dose inhaler (20 sources) beta2-Adrenergic Agonist Start: 06-28-2021 End: 01-21-2023 take 2 puff(s) by inhalation every four hours as needed albuterol HFA (PROAIR HFA) 90 mcg/actuation inhaler Indications: Mild persistent asthma without complication Inhale 2 Puffs as instructed every 4 hours as needed. 18 g 0 01/22/2023 Active Problems Active Problems Problem Classification Problem Date Documented Da te Episodic/Chronic Alcohol-related disorders (1 source) Alcohol abuse; Translations: [Alcohol abuse, uncomplicated] Chronic Anxiety disorders (20 sources) Anxiety; Translations: [Anxiety disorder, unspecified] Onset: 6 12-04-2015 Chronic Asthma (20 sources) Uncomplicated mild persistent asthma; Translations: [Mild persistent asthma, uncomplicated] Onset: 6 12-20-2015 Chronic Diabetes mellitus without complication (20 sources) Type 2 diabetes mellitus without complication; Translations: [Type 2 diabetes mellitus without complications] Onset: 8 05-11-2019 Chronic Disorders of lipid metabolism (20 sources) Mixed hyperlipidemia; Translations: [Mixed hyperlipidemia] Onset: 8 12-04-2017 Chronic Esophageal disorders (20 sources) Gastroesophageal reflux disease; Translations: [Gastro-esophageal reflux disease without esophagitis] Onset: 6 12-20-2015 Chronic Fluid and electrolyte disorders (2 sources) Hypokalemia; Translations: [Hypokalemia] Episodic Headache; including migraine (20 sources) Migraine; Translations: [Periodic headache syndromes in child or adult, not intractable] Onset: 6 12-20-2015 Chronic Mood disorders (20 sources) Depressive disorder; Translations: [Depressive disorder] Onset: 3 Chronic Nausea and vomiting (1 source) Nausea and vomiting; Translations: [Nausea with vomiting, unspecified] Episodic Other connective tissue disease (20 sources) Recurrent falls ; Translations: [Repeated falls] Onset: 9 08-21-2018 Episodic Other connective tissue disease (1 source) Bilateral localized swelling of lower limbs; Translations: [Other specified soft tissue disorders] Episodic Other connective tissue disease (1 source) Repeated falls; Translations: [Multiple falls] Onset: 3 Episodic Other gastrointestinal disorders (1 source) Dysphagia; Translations: [Dysphagia, unspecified] Episodic Other hereditary and degenerative nervous system conditions (20 sources) Restless legs; Translations: [Restless legs syndrome] Onset: 8 12-04-2017 Chronic Other hereditary and degenerative nervous system conditions (20 sources) Intention tremor; Translations: [Other specified forms of tremor] Onset: 0 12-13-2019 Chronic Other hereditary and degenerative nervous system conditions (1 source) Essential tremor; Translations: [Essential tremor] 10-22-2022 Chronic Other hereditary and degenerative nervous system conditions (1 source) Other specified forms of tremor; Translations: [Action tremor] Onset: 0 Chronic Other hereditary and degenerative nervous system conditions (1 source) Restless legs syndrome; Translations: [Restless legs syndrome] Onset: 3 Chronic Other nervous system disorders (20 sources) Difficulty walking; Translations: [Difficulty in walking, not elsewhere classified] Onset: 2 Chronic Other nervous system disorders (1 source) Other chronic pain; Translations: [Chronic bilateral low back pain with bilateral sciatica] Onset: 9 Chronic Other nervous system disorders (1 source) Impairment of balance; Translations: [Other abnormalities of gait and mobility] 10-22-2022 Episodic Other non-traumatic joint disorders (2 sources) Pain in unspecified joint; Translations: [Pain in unspecified joint] Onset: 8 Episodic Other non-traumatic joint disorders (4 sources) Pain in left knee; Translations: [Pain in joint, lower leg] Onset: 3 12-18-2022 Episodic Other screening for suspected conditions (not mental disorders or infectious disease) (1 source) Patient encounter status; Translations: [Encounter for screening for malignant neoplasm of colon] Episodic Other upper respiratory disease (20 sources) Seasonal allergy; Translations: [Other seasonal allergic rhinitis] Onset: 6 12-04-2016 Chronic Residual codes; unclassified (1 source) Left before being seen; Translations: [Procedure and treatment not carried out due to patient leaving prior to being seen by health care provider] Episodic Residual codes; unclassified (1 source) Bilateral lower limb edema; Translations: [Localized edema] Episodic Substance-related disorders (20 sources) Tobacco user; Translations: [Nicotine dependence, unspecified, uncomplicated] Onset: 8 12-04-2017 Chronic Unclassified (3 sources) Unknown / UNK(Unknown) Onset: 7 Past or Other Problems Problem Classification Problem Date Documented Da te Episodic/Chronic Allergic reactions (20 sources) Allergy to bee venom; Translations: [Bee allergy status] Onset: 06-16-2022 Episodic Cancer of cervix (20 sources) Atypical squamous cells of undetermined significance on cervical Papanicolaou smear; Translations: [Atypical squamous cells of undetermined significance on cytologic smear of cervix (ASC-US)] Onset: 01-02-2017 01-02-2017 Episodic E Codes: Fall (20 sources) Fall; Translations: [Unspecified fall, subsequent encounter] Onset: 10-22-2022 10-22-2022 Episodic Other aftercare (1 source) correction (current) use of insulin; Translations: [Controlled type 2 diabetes mellitus without complication, with long-term current use of insulin (HCC)] Onset: 05-11-2019 Episodic Other connective tissue disease (1 source) Other specified soft tissue disorders; Translations: [Localized swelling of both lower extremities] Onset: 08-26-2022 Episodic Other nervous system disorders (20 sources) Right trigeminal neuralgia; Translations: [Trigeminal neuralgia] Onset: 06-03-2016 06-03-2016 Episodic Residual codes; unclassified (1 source) Localized edema; Translations: [Bilateral lower extremity edema] Onset: 06-11-2022 Episodic Spondylosis; intervertebral disc disorders; other back problems (20 sources) Chronic low back pain; Translations: [Chronic low back pain] Onset: 06-03-2016 04-16-2018 Episodic Substance-related disorders (20 sources) Marijuana user; Translations: [Cannabis use, unspecified, uncomplicated] Onset: 08-26-2022 Episodic Unclassified (1 source) LEGS SWOLLEN/SWOLLEN LEG, BILATERAL Onset: 09-25-2016 Varicose veins of lower extremity (20 sources) Varicose veins of bilateral lower limbs; Translations: [Asymptomatic varicose veins of bilateral lower extremities] Onset: 04-23-2006 12-20-2015 Episodic Results Test Name Value Interpretation Reference Range Facil ity Vital Signs Date Time Vital Sign Value Performing Clinician James clark 12-22-2022 13:52-0400 Body temperature 98.2 [degF] Nighat Quinn APRN.CNP Work Phone: [facility] 12-22-2022 13:52-0400 Body weight 53.52 kg Nighat Quinn APRN.CNP Work Phone: [facility] 12-22-2022 13:52-0400 Diastolic blood pressure 68 mm[Hg] Nighat Quinn APRN.CNP Work Phone: [facility] 12-22-2022 13:52-0400 Heart rate 98 /min Nighat Quinn [employer]OPONICS GROWER.MANAGER OF PHARMACY Work Phone: [facility] 12-22-2022 13:52-0400 Respiratory rate 16 /min Nighat Quinn [employer] GROWER.MANAGER OF PHARMACY Work Phone: [facility] 12-22-2022 13:52-0400 SaO2% (BldA) [Mass fraction] 98 % Nighat Quinn [employer].MANAGER OF PHARMACY Work Phone: [facility] 12-22-2022 13:52-0400 Systolic blood pressure 120 mm[Hg] Nighat Quinn [employer].MANAGER OF PHARMACY Work Phone: [facility] 12-17-2022 16:22-0400 Body height 157.5 cm Krystyna Simpson MD Work Phone: [facility] 12-17-2022 16:22-0400 Body weight 54.88 kg Krystyna Simpson MD Work Phone: [facility] 12-17-2022 16:22-0400 Diastolic blood pressure 76 mm[Hg] Krystyna Simpson MD Work Phone: [facility] 12-17-2022 16:22-0400 Heart rate 100 /min Krystyna Simpson MD Work Phone: [facility] 12-17-2022 16:22-0400 Respiratory rate 16 /min Krystyna Simpson MD Work Phone: [facility] 12-17-2022 16:22-0400 SaO2% (BldA) [Mass fraction] 98 % Krystyna Simpson MD Work Phone: [facility] 12-17-2022 16:22-0400 Systolic blood pressure 100 mm[Hg] Krystyna Simpson MD Work Phone: [facility] 10-22-2022 12:57-0400 Body height 157.5 cm Jennifer Gallardo [employer]OPON[employer] GROWER.CN P Work Phone: [facility] 10-22-2022 12:57-0400 Body weight 56.79 kg Jennifer Gallardo [employer].CN P Work Phone: [facility] 10-22-2022 12:57-0400 Diastolic blood pressure 67 mm[Hg] Jennifer Gallardo [employer].MANAGER OF PHARMACY Work Phone: [facility] 10-22-2022 12:57-0400 Heart rate 82 /min Jennifer Gallardo [employer] GR[employer].CN P Work Phone: [facility] 10-22-2022 12:57-0400 SaO2% (BldA) [Mass fraction] 98 % Jennifer Gallardo [employer].MANAGER OF PHARMACY Work Phone: [facility] 10-22-2022 12:57-0400 Systolic blood pressure 103 mm[Hg] Jennifer Gallardo [employer].MANAGER OF PHARMACY Work Phone: [facility] 10-15-2022 17:08-0400 Body weight 57.42 kg Kailee Podlogar [employer] GROWER.MANAGER OF PHARMACY Work Phone: [facility] 10-15-2022 17:08-0400 Diastolic blood pressure 70 mm[Hg] Kailee Podlogar [employer]OWER.MANAGER OF PHARMACY Work Phone: [facility] 10-15-2022 17:08-0400 Heart rate 69 /min Kailee Podlogar [employer].MANAGER OF PHARMACY Work Phone: [facility] 10-15-2022 17:08-0400 Respiratory rate 18 /min Kailee Podlogar [employer]OWER.MANAGER OF PHARMACY Work Phone: [facility] 10-15-2022 17:08-0400 SaO2% (BldA) [Mass fraction] 96 % Kailee Podlogar [employer] GROWER.MANAGER OF PHARMACY Work Phone: [facility] 10-15-2022 17:08-0400 Systolic blood pressure 126 mm[Hg] Kailee Podlogar [employer]OWER.MANAGER OF PHARMACY Work Phone: [facility] 08-26-2022 12:59-0400 Body weight 58.88 kg Krystyna Simpson MD Work Phone: [facility] 08-26-2022 12:59-0400 Diastolic blood pressure 70 mm[Hg] Krystyna Simpson MD Work Phone: [facility] 08-26-2022 12:59-0400 Heart rate 56 /min Krystyna Simpson MD Work Phone: [facility] 08-26-2022 12:59-0400 Respiratory rate 16 /min Krystyna Simpson MD Work Phone: [facility] 08-26-2022 12:59-0400 SaO2% (BldA) [Mass fraction] 94 % Krystyna Simpson MD Work Phone: [facility] 08-26-2022 12:59-0400 Systolic blood pressure 110 mm[Hg] Krystyna Simpson MD Work Phone: [facility] 06-16-2022 14:45-0400 Body weight 59.88 kg Timmy Park MD Work Phone: [facility] 06-16-2022 14:45-0400 Diastolic blood pressure 72 mm[Hg] Timmy Park MD Work Phone: [facility] 06-16-2022 14:45-0400 Heart rate 80 /min Timmy Park MD Work Phone: [facility] 06-16-2022 14:45-0400 Respiratory rate 16 /min Timmy Park MD Work Phone: [facility] 06-16-2022 14:45-0400 Systolic blood pressure 118 mm[Hg] Timmy Park MD Work Phone: [facility] 06-11-2022 14:38-0400 Body temperature 97.9 [degF] Patricia Older [employer].MANAGER OF PHARMACY Work Phone: [facility] 06-11-2022 14:38-0400 Body weight 60.33 kg Patricia Older [employer].MANAGER OF PHARMACY Work Phone: [facility] 06-11-2022 14:38-0400 Diastolic blood pressure 76 mm[Hg] Patricia Older [employer]OP[employer] GROWER.MANAGER OF PHARMACY Work Phone: [facility] 06-11-2022 14:38-0400 Heart rate 57 /min Patricia Older [employer]OP[employer] GROWER.MANAGER OF PHARMACY Work Phone: [facility] 06-11-2022 14:38-0400 Respiratory rate 20 /min Patricia Older [employer].MANAGER OF PHARMACY Work Phone: [facility] 06-11-2022 14:38-0400 SaO2% (BldA) [Mass fraction] 100 % Patricia Older [employer]OP[employer] GROWER.MANAGER OF PHARMACY Work Phone: [facility] 06-11-2022 14:38-0400 Systolic blood pressure 113 mm[Hg] Patricia Older [employer]DROPON[employer] GROWER.MANAGER OF PHARMACY Work Phone: [facility] 04-11-2022 16:16-0500 Body temperature 97.2 [degF] Timmy Park MD Work Phone: [facility] 04-11-2022 16:16-0500 Body weight 58.06 kg Timmy Park MD Work Phone: [facility] 04-11-2022 16:16-0500 Diastolic blood pressure 60 mm[Hg] Timmy Park MD Work Phone: [facility] 04-11-2022 16:16-0500 Heart rate 67 /min Timmy Park MD Work Phone: [facility] 04-11-2022 16:16-0500 Respiratory rate 18 /min Timmy Park MD Work Phone: [facility] 04-11-2022 16:16-0500 SaO2% (BldA) [Mass fraction] 95 % Timmy Park MD Work Phone: [facility] 04-11-2022 16:16-0500 Systolic blood pressure 116 mm[Hg] Timmy Park MD Work Phone: [facility] 11-14-2021 16:19-0400 Body height 157.5 cm Mikhail Gallardo MD Work Phone: [facility] 11-14-2021 16:19-0400 Body weight 62.87 kg Mikhail Gallardo MD Work Phone: [facility] 11-14-2021 16:19-0400 Diastolic blood pressure 82 mm[Hg] Mikhail Gallardo MD Work Phone: [facility] 11-14-2021 16:19-0400 Heart rate 86 /min Mikhail Gallardo MD Work Phone: [facility] 11-14-2021 16:19-0400 SaO2% (BldA) [Mass fraction] 97 % Mikhail Gallardo MD Work Phone: [facility] 11-14-2021 16:19-0400 Systolic blood pressure 122 mm[Hg] Mikhail Gallardo MD Work Phone: [facility] 06-24-2021 13:56-0400 Diastolic blood pressure 68 mm[Hg] Patricia Older [employer] GROWER.MANAGER OF PHARMACY Work Phone: [facility] 06-24-2021 13:56-0400 Heart rate 90 /min Patricia Older [employer].MANAGER OF PHARMACY Work Phone: [facility] 06-24-2021 13:56-0400 Respiratory rate 18 /min Patricia Older [employer]OP[employer] GROWER.MANAGER OF PHARMACY Work Phone: [facility] 06-24-2021 13:56-0400 SaO2% (BldA) [Mass fraction] 98 % Patricia Older [employer]DROP[employer] GROWER.MANAGER OF PHARMACY Work Phone: [facility] 06-24-2021 13:56-0400 Systolic blood pressure 116 mm[Hg] Patricia Older [employer]OP[employer] GROWER.MANAGER OF PHARMACY Work Phone: [facility] Encounters Encounter Date Encounter Type Care Provider Facility Start: 03-24-2023 End: 03-24-2023 [facility] Start: 01-22-2023 Telephone encounter Froy ott MD Work Phone: Orthopaedics Procedures Date Procedure Procedure Detail Performing Clinician Start: 11-14-2021 Adult depression scr eening assessment Mikhail Gallardo MD Work Phone: Start: 06-08-2020 Adult depression scr eening assessment Timmy Park MD Work Phone: Start: 2019 Mammography Timmy Galvez MD Work Phone: Start: 09-14-2007 SURGICAL PATHOLOGY, CONVERTED Boris Mcmahon MD Work Phone: Start: 03-06-2007 SURGICAL PATHOLOGY, CONVERTED Robert Kenny MD Work Phone: Plan of Treatment Date Care Activity Detail Author Start: 11-25-2032 Urine microalbumin profile DTa P,Tdap,Td Vaccine (5 - Td or Tdap) [facility] Start: 01-01-2029 Urine microalbumin profile [facility] Start: 12-18-2023 Annual PCP Team Varitype Operator frank Disease Visit Annual PCP Team Chronic Disease Visit [facility] Start: 10-16-2023 ANNUAL PCP TEAM MOLD INSERT CHANGER FRANK DISEASE VISIT ANNUAL PCP TEAM CHRONIC DISEASE VISIT [facility] Start: 08-27-2023 ANNUAL PCP TEAM MOLD INSERT CHANGER FRANK DISEASE VISIT ANNUAL PCP TEAM CHRONIC DISEASE VISIT [facility] Start: 06-17-2023 ANNUAL PCP TEAM MOLD INSERT CHANGER FRANK DISEASE VISIT ANNUAL PCP TEAM CHRONIC DISEASE VISIT [facility] Start: 06-17-2023 HPV TESTING HPV TESTING [facility] Immunizations Immunization Date Immunization Notes Care Provider Fa cility 12-16-2019 influenza, injectabl e, quadrivalent, preservative free Timmy Park MD Work Phone: [facility] 12-16-2019 influenza, seasonal, injectable Timmy Park MD Work Phone: [facility] Work Phone: 12-16-2019 influenza virus vaccine, unspecified formulation Krystyna Simpson MD Work Phone: [facility] 01-07-2019 influenza, injectabl e, quadrivalent, contains preservative Timmy Park MD Work Phone: [facility] Work Phone: 01-01-2019 tetanus toxoid, redu maria g diphtheria toxoid, and acellular pertussis vaccine, adsorbed Timmy Prak MD Work Phone: [facility] Work Phone: 01-13-2018 influenza, seasonal, injectable Timmy Park MD Work Phone: [facility] 12-28-2017 influenza, seasonal, injectable, preservative free Timmy Park MD Work Phone: [facility] 12-27-2017 influenza virus vaccine, unspecified formulation Timmy Park MD Work Phone: [facility] 12-20-2017 influenza, injectabl e, quadrivalent, preservative free Timmy Park MD Work Phone: [facility] 12-04-2016 influenza, injectabl e, quadrivalent, contains preservative Timmy Park MD Work Phone: [facility] 06-28-2016 tetanus toxoid, redu maria g diphtheria toxoid, and acellular pertussis vaccine, adsorbed Timmy Park MD Work Phone: [facility] Work Phone: 04-14-2016 influenza virus vaccine, unspecified formulation Timmy Park MD Work Phone: [facility] 04-14-2016 pneumococcal polysaccharide vaccine, 23 valent Timmy Park MD Work Phone: [facility] 03-31-2016 influenza, seasonal, injectable, preservative free Timmy Park MD Work Phone: [facility] 07-02-2014 tetanus toxoid, redu maria g diphtheria toxoid, and acellular pertussis vaccine, adsorbed Timmy Park MD Work Phone: [facility] Work Phone: 02-09-2006 influenza virus vaccine, unspecified formulation Timmy Park MD Work Phone: [facility] Work Phone: Payers Date Payer Category Payer Private Health Insurance [id number] 2022 Private Health Insurance [id number] 2021 Medicare AETNA MEDICARE A ETNA MEDICARE O [id number] 2021-Present [phone] [address] [place] [address] O [id number] 2021 Medicare [id number] 2021 Medicare [id number] 2018 Medicaid [employer] [facility] [employer]ICA[employer] [id number] 2018-Present [phone] [address] [place] [address] Medicaid [id number] 2017 Unknown ANTHEM BLUE CROS S AND BLUE SHIELD ANTHEM MEDIBLUE O [id number] 2017-Present [phone] [address] [place] [address] O [id number] 2016 Unknown [id number] 2007 Medicaid [id number] 1976 Unknown [id number] 1976 Unknown [id number] 1976 Unknown [id number] 1976 Unknown [id number] 1976 Unknown [id number] Medicare [id number] Social History Date Type Detail Facility Start: 03-30-1998 End: 08-26-2022 Tobacco smoking status NHIS Smokes tobacco daily [facility] Start: 03-30-1998 History of tobacco use Cigarette Smo ker [facility]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 swelling RECURRENT SYMPTOMS: Yes not certain because this has been going on for at least a month OTHER SYMPTOMS: none DENIES: chest pain, difficulty breathing or shortness of breathing MEDS: pt has increased her medication HCTZ to 12.5 mg at same time in the am. Started this last month. Please advise pt. Alena Savaedra LPN Attempted to reach Jarek(EC) concerning refills being approved, no answer at this time. Please see remainder of message below concerning patient edema. Erika Horton LPN Jarek, sig other, is calling on behalf of Colleen. He was calling to check on med refill status, which he was updated on. He also wanted to report that for the last couple of days he had noticed swelling in her legs and feet. Please call patient to discuss. Colleen [phone] documented in this encounter [facility] 06-05-2022 Miscellaneous Notes Patient has been identified by name and date of : Yes Patient phones for refill(s): Requested Prescriptions Pending Prescriptions Disp Refills alcohol swabs 200 Each 0 Sig: Apply 1 application to affected area four times daily. dulaglutide (TRULICITY) 0.75 mg/0.5 mL pen injector 2 mL 0 Sig: Inject 0.75 mg subcutaneously one time a week. Inject dose once per week. Discard Pen After Date of last office visit in primary care: 04/11/2022 No future appt scheduled. Last 2 Encounter Wt Readings: Date: Wt: 04/11/2022 58.1 kg (128 lb) 11/14/2021 62.9 kg (138 lb 9.6 oz) Previous labs/tests for medication: Diabetes: Hemoglobin A1C (%) Date Value 06/22/2021 8.6 04/20/2021 6.8 05/16/2020 5.9 Please advise. Thank you. Aliza Peters LPN documented in this encounter [facility] 06-05-2022 Miscellaneous Notes Patient has been identified by name and date of : Yes Patient phones for refill(s): Requested Prescriptions Pending Prescriptions Disp Refills ondansetron (ZOFRAN) 4 mg tablet 30 tablet 0 Sig: Take 1 tablet by mouth every 8 hours as needed. Date of last office visit in primary care: 04/11/2022 No future appt scheduled. Last 2 Encounter Wt Readings: Date: Wt: 04/11/2022 58.1 kg (128 lb) 11/14/2021 62.9 kg (138 lb 9.6 oz) Previous labs/tests for medication: Not applicable Please advise. Thank you. Aliza Peters LPN documented in this encounter [facility] 04-30-2022 Miscellaneous Notes Patient notified, verbalized understanding. All Sanchez Ma Okay to change back to 400 mg TID. She can take 1/2 tablet of the 800 mg cy=730 mg to finish out current prescription. She also has 400 mg tablets on hand. Call when she needs refilled, should have enough to last for a while. Patricia Hobson APRN.KO Colleen Milian is calling Timmy Park MD today with concern regarding the gabapentin that needs to be cut back from the 800 mg twice daily to 400 mg three times a day. Please send this corrected dosing prescription to [facility]. Patient states the 800 mg twice daily was making her very sick to her stomach. Patient has been identified by name and birthdate. Duration of symptoms: days Person calling: self Call patient at: at home [phone] (home) Was an appointment scheduled: yes, this week Thursday05/02/2022 Closing statement: Results or non-symptom based questions: Thank you for calling [facility], your call will be returned within the next business day. [facility] 04-25-2022 Miscellaneous Notes Last Office Visit: 04/11/2022 Future Office Visit: none Requested Prescriptions Pending Prescriptions Disp Refills dulaglutide (TRULICITY) 0.75 mg/0.5 mL pen injector 2 mL 0 Sig: Inject 0.75 mg subcutaneously one time a week. Inject dose once per week. Discard Pen After Date of Last Labs: 04/11/2021 documented in this encounter [facility] 04-23-2022 Miscellaneous Notes Patient has been identified by name and date of : Yes, Patient phones for refill(s): Requested Prescriptions Pending Prescriptions Disp Refills alcohol swabs 200 Each 0 Sig: Apply 1 application to affected area four times daily. Date of last office visit in primary care: 04/11/2022 No future appt scheduled. Last 2 Encounter Wt Readings: Date: Wt: 04/11/2022 58.1 kg (128 lb) 11/14/2021 62.9 kg (138 lb 9.6 oz) Previous labs/tests for medication: Diabetes: Hemoglobin A1C (%) Date Value 06/22/2021 8.6 04/20/2021 6.8 05/16/2020 5.9 Please advise. Thank you. Aliza Peters LPN Patient has been identified by name and date of : Yes Requested Prescriptions Pending Prescriptions Disp Refills alcohol swabs 200 Each 0 Sig: Apply 1 application to affected area four times daily. RX INSTRUCTIONS: Patient aware RX will be sent to pharmacy. No need to notify patient. Karie Robles documented in this encounter [facility] 04-14-2022 Miscellaneous Notes EDWIN: 04/11/2022 jardiance Last refill: 03/07/2022 QTY: 90 Refills: 0 protonix Last refill: 01/17/2022 QTY: 90 Refills: 1 documented in this encounter [facility] 04-14-2022 Miscellaneous Notes Called the pharmacy and there is no reason why pt can't use the covered machine and supplies. The rx from [facility] is a generic mater and supplies. Pt notified. No PA is needed. Pharmacy will run the covered meter and supplies. Pt calling to check on status of prior authorization for her test strips. Informed patient that she would be contacted with an update as soon as possible. Nan Lockett RN Prior authorize. Patient significant other Jarek called to state that the test strips need prior authorization. The glucose meter patient has is OneTouch Verio. Spoke with pharmacy and this is not a covered meter with patient's new insurance. The covered meters are TrueMetric or AccuChek. Will need a new generic script for meter is to change meters. If patient is to stay on OneTouch Verio will need to complete prior authorization by call [phone]. Attempted to reach patient to see what she would like to do with no answer. documented in this encounter [facility] 04-11-2022 Note HNO ID: [id number] Author: Timmy Park MD Service: ? Author Type: Physician Type: Progress Notes Filed: 04/12/2022 7:53 PM Note Text: This note was created using [employer]. Subjective Patient presents with: Established Patient: Medication follow up Colleen Milian is a 46 year old female here primarily for gabapentin refill. She also needed prior authorization of strips. She also complained of poorly controlled acid reflux with recurrent acid indigestion, nausea, vomiting, and dysphagia. She was asking for a stronger dose of pantoprazole, or a different medication altogether. Review of Systems Constitutional: Negative. Respiratory: Negative. Cardiovascular: Negative. Neurological: Negative. ACTIVE PROBLEM LIST Varicose Veins of Legs Anxiety Mild Persistent Asthma Without Complication Periodic Headache Syndrome, Not Intractable Chronic Gerd Seasonal Allergies Trigeminal Neuralgia of Right Side of Face Chronic Low Back Pain Atypical Squamous Cells of Undetermined Significance (Ascus) On Papanicolaou Smear of Cervix Controlled Type 2 Diabetes Mellitus Without Complication, With Long-Term Current Use of Insulin (Hcc) Restless Leg Syndrome Mixed Hyperlipidemia Tobacco Use Disorder Chronic Neck Pain Action Tremor Current Outpatient Medications Medication Sig ondansetron (ZOFRAN) 4 mg tablet Take 1 tablet by mouth every 8 hours as needed. dulaglutide (TRULICITY) 0.75 mg/0.5 mL pen injector Inject 0.75 mg subcutaneously one time a week. Inject dose once per week. Discard Pen After gabapentin (NEURONTIN) 800 mg tablet Take 1 tablet by mouth twice daily for 30 days. gabapentin (NEURONTIN) 400 mg capsule Take 1 capsule by mouth every afternoon for 30 days. alcohol swabs Apply 1 application to affected area four times daily. empagliflozin (JARDIANCE) 25 mg tablet Take 1 tablet by mouth once daily. Take 1 tablet once daily in the morning atorvastatin (LIPITOR) 40 mg tablet Take 1 tablet by mouth daily at bedtime. For cholesterol. escitalopram oxalate (LEXAPRO) 20 mg tablet Take 1 tablet by mouth once daily. primidone (MYSOLINE) 50 mg tablet Take 4 tablets by mouth daily at bedtime. ipratropium-albuterol (DUONEB) 0.5 mg-3 mg(2.5 mg base)/3 mL nebu Inhale 3 mL as instructed every 6 hours as needed for wheezing/shortness of breath. albuterol HFA (PROAIR HFA) 90 mcg/actuation inhaler Inhale 2 Puffs as instructed every 4 hours as needed. pantoprazole DR (PROTONIX) 40 mg tablet Take 1 tablet by mouth daily before breakfast. Take on empty stomach, 1/2 hr before meal. pramipexole (MIRAPEX) 0.25 mg tablet Take 2 tablets by mouth daily at bedtime. busPIRone (BUSPAR) 5 mg tablet Take 1 tablet by mouth three times daily as needed (anxiety.). hydroCHLOROthiazide (HYDRODIURIL, ESIDRIX) 12.5 mg capsule Take 1 capsule by mouth once daily. DUPIXENT PEN 300 mg/2 mL pen lancets (ONE TOUCH DELICA) 33 gauge Test blood sugar(s) 4 daily. Dx: Type 2 DM - Controlled E11.9 Insulin: No EPINEPHrine (EPIPEN) 0.3 mg/0.3 mL auto-injector Inject 0.3 mL intramuscularly as needed (For allergic reaction). levonorgestrel (MIRENA) 20 mcg/24 hr (5 years) IUD Inserted in office blood sugar diagnostic (BLOOD GLUCOSE TEST) test strip Test blood sugar(s) 4 times daily. Dx: Type 2 DM - controlled E11.9. Insulin: No. mupirocin (BACTROBAN) 2 % ointment Apply to affected area three times daily. (Patient not taking: Reported on 04/11/2022) No current facility-administered medications for this visit. Objective BP 116/60 Pulse 67 Temp 36.2 ?C (97.2 ?F) Resp 18 Wt 58.1 kg (128 lb) LMP 04/11/2022 (Approximate) SpO2 95% BMI 23.41 kg/m? Physical Exam Constitutional: General: She is not in acute distress. Appearance: She is not ill-appearing. Cardiovascular: Rate and Rhythm: Normal rate and regular rhythm. Heart sounds: No murmur heard. No gallop. Pulmonary: Effort: Pulmonary effort is normal. Breath sounds: Normal breath sounds. No wheezing or rales. Abdominal: Tenderness: There is no abdominal tenderness. Musculoskeletal: Right lower leg: No edema. Left lower leg: No edema. Neurological: General: No focal deficit present. Mental Status: She is alert. Gait: Gait normal. Psychiatric: Mood and Affect: Mood normal. Feet:Shoes and socks removed, No deformities, ulcers, calluses, normal distal pulses, and sensitive to 10 gm monofilament Assessment and Plan 1. Dysphagia, unspecified type - ICD9: 787.20, ICD10: R13.10 (primary diagnosis) Shared medical decision making was done. We agreed to have her GI tract reevaluated. - CONSULT TO GASTROENTEROLOGY 2. Controlled type 2 diabetes mellitus without complication, with long-term current use of insulin (HCC) - ICD9: 250.00, V58.67, ICD10: E11.9, Z79.4 Controlled. - Continue current medications - HEMOGLOBIN A1C (POC) - COMP METABOLIC PANEL - LIPID PANEL BASIC - HGB A1C (more content not included)... [facility] 04-11-2022 Miscellaneous Notes See office visit. Patient has been identified by name and date of : Yes Patient phones for refill(s): Requested Prescriptions Pending Prescriptions Disp Refills gabapentin (NEURONTIN) 800 mg tablet 60 tablet 0 Sig: Take 1 tablet by mouth twice daily for 30 days. Date of last office visit in primary care: 11/27/2021 No future appt scheduled. Left message to call & schedule appt. Last 2 Encounter Wt Readings: Date: Wt: 11/14/2021 62.9 kg (138 lb 9.6 oz) 06/24/2021 0 kg () Previous labs/tests for medication: Not applicable Please advise. Thank you. Aliza Peters LPN documented in this encounter [facility] 04-11-2022 Instructions Timmy Park MD - 04/11/2022 5:26 PM EST FASTING BLOOD WORK IN 3 MONTHS. YOUR DIABETES IS ELEVATING. WATCH DIET MORE. documented in this encounter [facility] 04-11-2022 History of Present illness Narrative This note was created using [employer]. Subjective Patient presents with: Established Patient: Medication follow up Colleen Milian is a 46 year old female here primarily for gabapentin refill. She also needed prior authorization of strips. She also complained of poorly controlled acid reflux with recurrent acid indigestion, nausea, vomiting, and dysphagia. She was asking for a stronger dose of pantoprazole, or a different medication altogether. Review of Systems Constitutional: Negative. Respiratory: Negative. Cardiovascular: Negative. Neurological: Negative. ACTIVE PROBLEM LIST Varicose Veins of Legs Anxiety Mild Persistent Asthma Without Complication Periodic Headache Syndrome, Not Intractable Chronic Gerd Seasonal Allergies Trigeminal Neuralgia of Right Side of Face Chronic Low Back Pain Atypical Squamous Cells of Undetermined Significance (Ascus) On Papanicolaou Smear of Cervix Controlled Type 2 Diabetes Mellitus Without Complication, With Long-Term Current Use of Insulin ([facility]) Restless Leg Syndrome Mixed Hyperlipidemia Tobacco Use Disorder Chronic Neck Pain Action Tremor Current Outpatient Medications Medication Sig ondansetron (ZOFRAN) 4 mg tablet Take 1 tablet by mouth every 8 hours as needed. dulaglutide (TRULICITY) 0.75 mg/0.5 mL pen injector Inject 0.75 mg subcutaneously one time a week. Inject dose once per week. Discard Pen After gabapentin (NEURONTIN) 800 mg tablet Take 1 tablet by mouth twice daily for 30 days. gabapentin (NEURONTIN) 400 mg capsule Take 1 capsule by mouth every afternoon for 30 days. alcohol swabs Apply 1 application to affected area four times daily. empagliflozin (JARDIANCE) 25 mg tablet Take 1 tablet by mouth once daily. Take 1 tablet once daily in the morning atorvastatin (LIPITOR) 40 mg tablet Take 1 tablet by mouth daily at bedtime. For cholesterol. escitalopram oxalate (LEXAPRO) 20 mg tablet Take 1 tablet by mouth once daily. primidone (MYSOLINE) 50 mg tablet Take 4 tablets by mouth daily at bedtime. ipratropium-albuterol (DUONEB) 0.5 mg-3 mg(2.5 mg base)/3 mL nebu Inhale 3 mL as instructed every 6 hours as needed for wheezing/shortness of breath. albuterol HFA (PROAIR HFA) 90 mcg/actuation inhaler Inhale 2 Puffs as instructed every 4 hours as needed. pantoprazole DR (PROTONIX) 40 mg tablet Take 1 tablet by mouth daily before breakfast. Take on empty stomach, 1/2 hr before meal. pramipexole (MIRAPEX) 0.25 mg tablet Take 2 tablets by mouth daily at bedtime. busPIRone (BUSPAR) 5 mg tablet Take 1 tablet by mouth three times daily as needed (anxiety.). hydroCHLOROthiazide (HYDRODIURIL, ESIDRIX) 12.5 mg capsule Take 1 capsule by mouth once daily. DUPIXENT PEN 300 mg/2 mL pen lancets (ONE TOUCH [employer] 33 gauge Test blood sugar(s) 4 daily. Dx: Type 2 DM - Controlled E11.9 Insulin: No EPINEPHrine (EPIPEN) 0.3 mg/0.3 mL auto-injector Inject 0.3 mL intramuscularly as needed (For allergic reaction). levonorgestrel (MIRENA) 20 mcg/24 hr (5 years) IUD Inserted in office blood sugar diagnostic (BLOOD GLUCOSE TEST) test strip Test blood sugar(s) 4 times daily. Dx: Type 2 DM - controlled E11.9. Insulin: No. mupirocin (BACTROBAN) 2 % ointment Apply to affected area three times daily. (Patient not taking: Reported on 04/11/2022) No current facility-administered medications for this visit. Objective BP 116/60 Pulse 67 Temp 36.2 C (97.2 F) Resp 18 Wt 58.1 kg (128 lb) LMP 04/11/2022 (Approximate) SpO2 95% BMI 23.41 kg/m Physical Exam Constitutional: General: She is not in acute distress. Appearance: She is not ill-appearing. Cardiovascular: Rate and Rhythm: Normal rate and regular rhythm. Heart sounds: No murmur heard. No gallop. Pulmonary: Effort: Pulmonary effort is normal. Breath sounds: Normal breath sounds. No wheezing or rales. Abdominal: Tenderness: There is no abdominal tenderness. Musculoskeletal: Right lower leg: No edema. Left lower leg: No edema. Neurological: General: No focal deficit present. Mental Status: She is alert. Gait: Gait normal. Psychiatric: Mood and Affect: Mood normal. Feet:Shoes and socks removed, No deformities, ulcers, calluses, normal distal pulses, and sensitive to 10 gm monofilament Assessment and Plan 1. Dysphagia, unspecified type - ICD9: 787.20, ICD10: R13.10 (primary diagnosis) Shared medical decision making was done. We agreed to have her GI tract reevaluated. - CONSULT TO GASTROENTEROLOGY 2. Controlled type 2 diabetes mellitus without complication, with long-term current use of insulin (HCC) - ICD9: 250.00, V58.67, ICD10: E11.9, Z79.4 Controlled. - Continue current medications - HEMOGLOBIN A1C (POC) - COMP METABOLIC PANEL - LIPID PANEL BASIC - HGB A1C - ALBUMIN/CREAT RATIO RND UR 3. Chronic bilateral low back pain with bilateral sciatica - ICD9: 724.2, 724.3, 338.29, ICD10: M54.42, M54.41, G89.29 Continue current treatment. - GABAPENTIN 800 MG TABLET - GABAPENTIN 400 MG CAPSULE 4. Chronic GERD - ICD9: 530.81, ICD10: K21.9 Poor control. - CBC - CONSULT TO GASTROENTEROLOGY 5. Nausea and vomiting, unspecified vomiting type - ICD9: 787.01, ICD10: R11.2 - CONSULT TO GASTROENTEROLOGY 6. Action tremor - ICD9: 333.1, ICD10: G25.2 Controlled. - PRIMIDONE/MYSOLINE Timmy Park MD documented in this encounter [facility] 03-28-2022 Miscellaneous Notes Patient has been identified by name and date of : Yes, Patient phones for refill(s): Patient requesting HAJA as she is out of medication Requested Prescriptions Pending Prescriptions Disp Refills ondansetron (ZOFRAN) 4 mg tablet 30 tablet 1 Sig: Take 1 tablet by mouth every 8 hours as needed. Date of last office visit in primary care: 11/27/21. Appt tomorrow 03/29/22 Last 2 Encounter Wt Readings: Date: Wt: 11/14/2021 62.9 kg (138 lb 9.6 oz) 06/24/2021 0 kg () Please advise. Thank you. Jeanie Doran LPN documented in this encounter [facility] 03-25-2022 Miscellaneous Notes EDWIN: 11/27/2021 Last refill: 09/18/2021 QTY: 2ml Refills: 5 Patient's request for medication is as follows: Requested Prescriptions Pending Prescriptions Disp Refills dulaglutide (TRULICITY) 0.75 mg/0.5 mL pen injector 2 mL 5 Sig: Inject 0.75 mg subcutaneously one time a week. Inject dose once per week. Discard Pen After Please approve the above prescription(s) to electronically send to pharmacy. All Sanchez Ma documented in this encounter [facility] 03-15-2022 Miscellaneous Notes Pt reports she is out of her DM test strips. Patient has been identified by name and date of : Yes Patient phones for refill(s): Requested Prescriptions Pending Prescriptions Disp Refills blood sugar diagnostic (BLOOD GLUCOSE TEST) test strip 150 Strip 0 Sig: Test blood sugar(s) 4 times daily. Dx: Type 2 DM - controlled E11.9. Insulin: No. Date of last office visit in primary care: 11/27/21 Future visit: 03/29/22 Last 2 Encounter Wt Readings: Date: Wt: 11/14/2021 62.9 kg (138 lb 9.6 oz) 06/24/2021 0 kg () Previous labs/tests for medication: Diabetes: Hemoglobin A1C (%) Date Value 06/22/2021 8.6 04/20/2021 6.8 05/16/2020 5.9 Please advise. Thank you. Mady Berry RN documented in this encounter [facility] 03-10-2022 Miscellaneous Notes Spoke with pt and she was given information below and has apt scheduled for end february. Alena Saavedra LPN IN OFFICE APPOINTMENT NEEDED. Last office visit: 11/27/21 Next appointment scheduled: No future appointments scheduled at this time. Last labs: 06/22/21 Patient phones requesting refills as follows: Requested Prescriptions Pending Prescriptions Disp Refills ondansetron (ZOFRAN) 4 mg tablet 30 tablet 1 Sig: Take 1 tablet by mouth every 8 hours as needed. gabapentin (NEURONTIN) 800 mg tablet 60 tablet 2 Sig: Take 1 tablet by mouth twice daily for 90 days. gabapentin (NEURONTIN) 400 mg capsule 30 capsule 2 Sig: Take 1 capsule by mouth every afternoon for 90 days. Please review and advise. Marium Moeller LPN documented in this encounter [facility] 03-06-2022 Miscellaneous Notes Patient has been identified by name and date of : Yes Patient phones for refill(s): Requested Prescriptions Pending Prescriptions Disp Refills gabapentin (NEURONTIN) 800 mg tablet 60 tablet 2 Sig: Take 1 tablet by mouth twice daily for 90 days. Date of last office visit in primary care: EDWIN (VV) 11/27/21 No appointment scheduled Last 2 Encounter Wt Readings: Date: Wt: 11/14/2021 62.9 kg (138 lb 9.6 oz) 06/24/2021 0 kg () Patient states she is out of medication. Please advise. Thank you. ROSANA Tubbs documented in this encounter [facility] 03-03-2022 Miscellaneous Notes EDWIN: 11/27/2021 Last refill: 01/17/2022 QTY: 150 Refills: 0 Patient's request for medication is as follows: Requested Prescriptions Pending Prescriptions Disp Refills blood sugar diagnostic (BLOOD GLUCOSE TEST) test strip 150 Strip 0 Sig: Test blood sugar(s) 4 times daily. Dx: Type 2 DM - controlled E11.9. Insulin: No. Please approve the above prescription(s) to electronically send to pharmacy. All Sanchez Ma documented in this encounter [facility] 02-18-2022 Miscellaneous Notes Pt contacted an appt made for 02/24/[address] Park. Nan Lockett RN Patient needs follow-up appointment. It MUST be with Dr. Park. Patricia Hobson APRN.KO documented in this encounter [facility] 02-17-2022 Note HNO ID: [id number] Author: RT Jeannie(R) Service: ? Author Type: Technologist Type: Progress Notes Filed: 02/17/2022 11:12 AM Note Text: Radiology Service Progress Note PATIENT NAME: Colleen Milian DATE OF SERVICE: February 17, 2022 TIME: 11:12 AM PATIENT IDENTITY VERIFICATION COMPLETED USING TWO (2) IDENTIFIERS: Name and Date of confirmed by patient verbally. FALL SCREENING: Has the patient had 2 falls in the last year or 1 fall with injury or currently using an Ambulatory Assistive Device (Walker, Cane, Wheelchair, Crutches, etc.)? No PATIENT GENDER DATA: Female. status: : No status: NO. PATIENT RELEVANT IMPLANT DATA REVIEWED: Yes RADIOLOGY DEPARTMENT: MR; Exam(s) Completed: Spine: Lumbar spine PERIPHERAL IV DATA: Not applicable SIGNED BY: Nitza Stiles RT(R) February 17, 2022 11:12 AM [facility] 01-17-2022 Miscellaneous Notes Pt called to check status. She states she has acid reflux bad and has trouble keeping food down without her medication. Pt calling for refills, pt states she is completely out of meds. EDWIN: 11/27/21 NOV: 01/18/22 Last Refill: BS test strips #150 2 refill Primidone: 06/28/21 #360 1 refill Pantoprazole: 06/28/21 #90 1 refill Albuterol: 06/28/21 18g 2 refill Lexapro: 06/28/21 #90 1 refill Atorvastatin: 06/28/21 #90 1 refill Jardiance: 06/28/21 #90 1 refill Bee Baker LPN documented in this encounter [facility] 01-16-2022 Miscellaneous Notes Last FUV Oct 2021 with BLW. documented in this encounter [facility] 01-16-2022 Miscellaneous Notes Pt requested refill, pt states she is completely out of her meds. EDWIN: 11/27/21 NOV: 01/18/22 Last Refill: 12/18/20 30mL 1 refill Bee Olivia AUSTIN documented in this encounter [facility] 01-09-2022 Miscellaneous Notes Pharmacy modification of my prescription is noted. Notified [facility] to cancel all Gabapentin prescriptions, done. Aliza Peters LPN Per Efrem/pharmacist, d/t how Patient's insurance is, insurance would not cover as written w/o doing a prior authorization. But insurance would cover 800mg bid daily, once in AM & at bedtime, 400mg at noon. Pharmacist said to call if there is any problem. [facility] [phone], Attempted to call multiple times line busy, will continue to try. Pharmacy hours, Not open 24 hours. Aliza Peters LPN Check with [facility] how gabapentin 800 mg tablet BID was dispensed under my name. We have no record of gabapentin 800 mg being prescribed. On 11/27/21 I increased the dose of gabapentin 400 mg to 2 capsules in AM, 1 cap every PM, and 2 capsules at HS. Supply was supposed to be 60 days and I sent this to [facility] but this is not showing. Discontinue ANY gabapentin prescription from [facility] for now. [facility] phoned to report patient filled a gabapentin 800 mg Rx at [facility] on 11-27-21 for #60. [facility] is asking what is the dose suppose to be, as their last Rx was a 400 mg. [facility] reports patient gets short supply from [facility] but [facility] fills her pill packs. Advised [facility] gabapentin 400 mg is the one listed on patient's chart and I do not see that patient was ever prescribed an 800 mg gabapentin. Advised [facility] that we usually send the Rx to the pharmacy of patients choice. Left voice message for patient to return call to nurse. Please verify what gabapentin dose she has and where does she want the gabapentin Rx sent to. [facility] asking pcp to check the pharmacy record to see that patient did fill an 800 mg gabapentin at [facility] on 11-27-21. documented in this encounter [facility] 01-07-2022 Miscellaneous Notes Spoke with pt and her apt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 criminally investigate or prosecute any alcohol or drug abuse patient.[facility] HospitalIn the event this information is protected by the Federal Confidentiality of Alcohol and Drug Abuse Patient Records regulations: The Federal rules restrict any use of the information to criminally investigate or prosecute any alcohol or drug abuse patient.[facility]In the event this information is protected by the Federal Confidentiality of Alcohol and Drug Abuse Patient Records regulations: The Federal rules restrict any use of the information to criminally investigate or prosecute any alcohol or drug abuse patient.[facility] HospitalIn the event this information is protected by the Federal Confidentiality of Alcohol and Drug Abuse Patient Records regulations: The Federal rules restrict any use of the information to criminally investigate or prosecute any alcohol or drug abuse patient.[facility] HospitalIn the event this information is protected by the Federal Confidentiality of Alcohol and Drug Abuse Patient Records regulations: The Federal rules restrict any use of the information to criminally investigate or prosecute any alcohol or drug abuse patient.[facility] HospitalIn the event this information is protected by the Federal Confidentiality of Alcohol and Drug Abuse Patient Records regulations: The Federal rules restrict any use of the information to criminally investigate or prosecute any alcohol or drug abuse patient.[facility]In the event this information is protected by the Federal Confidentiality of Alcohol and Drug Abuse Patient Records regulations: The Federal rules restrict any use of the information to criminally investigate or prosecute any alcohol or drug abuse patient.[facility]In the event this information is protected by the Federal Confidentiality of Alcohol and Drug Abuse Patient Records regulations: The Federal rules restrict any use of the information to criminally investigate or prosecute any alcohol or drug abuse patient.[facility] HospitalIn the event this information is protected by the Federal Confidentiality of Alcohol and Drug Abuse Patient Records regulations: The Federal rules restrict any use of the information to criminally investigate or prosecute any alcohol or drug abuse patient.[facility] HospitalIn the event this information is protected by the Federal Confidentiality of Alcohol and Drug Abuse Patient Records regulations: The Federal rules restrict any use of the information to criminally investigate or prosecute any alcohol or drug abuse patient.[facility] HospitalIn the event this information is protected by the Federal Confidentiality of Alcohol and Drug Abuse Patient Records regulations: The Federal rules restrict any use of the information to criminally investigate or prosecute any alcohol or drug abuse patient.[facility] HospitalIn the event this information is protected by the Federal Confidentiality of Alcohol and Drug Abuse Patient Records regulations: The Federal rules restrict any use of the information to criminally investigate or prosecute any alcohol or drug abuse patient.[facility] HospitalIn the event this information is protected by the Federal Confidentiality of Alcohol and Drug Abuse Patient Records regulations: The Federal rules restrict any use of the information to criminally investigate or prosecute any alcohol or drug abuse patient.[facility]In the event this information is protected by the Federal Confidentiality of Alcohol and Drug Abuse Patient Records regulations: The Federal rules restrict any use of the information to criminally investigate or prosecute any alcohol or drug abuse patient.[facility] HospitalIn the event this information is protected by the Federal Confidentiality of Alcohol and Drug Abuse Patient Records regulations: The Federal rules restrict any use of the information to criminally investigate or prosecute any alcohol or drug abuse patient.[facility] HospitalIn the event this information is protected by the Federal Confidentiality of Alcohol and Drug Abuse Patient Records regulations: The Federal rules restrict any use of the information to criminally investigate or prosecute any alcohol or drug abuse patient.[facility] HospitalIn the event this information is protected by the Federal Confidentiality of Alcohol and Drug Abuse Patient Records regulations: The Federal rules restrict any use of the information to criminally investigate or prosecute any alcohol or drug abuse patient.[facility] HospitalIn the event this information is protected by the Federal Confidentiality of Alcohol and Drug Abuse Patient Records regulations: The Federal rules restrict any use of the information to criminally investigate or prosecute any alcohol or drug abuse patient.[facility] HospitalIn the event this information is protected by the Federal Confidentiality of Alcohol and Drug Abuse Patient Records regulations: The Federal rules restrict any use of the information to criminally investigate or prosecute any alcohol or drug abuse patient.[facility] HospitalIn the event this information is protected by the Federal Confidentiality of Alcohol and Drug Abuse Patient Records regulations: The Federal rules restrict any use of the information to criminally investigate or prosecute any alcohol or drug abuse patient.[facility] HospitalIn the event this information is protected by the Federal Confidentiality of Alcohol and Drug Abuse Patient Records regulations: The Federal rules restrict any use of the information to criminally investigate or prosecute any alcohol or drug abuse patient.[facility] HospitalIn the event this information is protected by the Federal Confidentiality of Alcohol and Drug Abuse Patient Records regulations: The Federal rules restrict any use of the information to criminally investigate or prosecute any alcohol or drug abuse patient.[facility] HospitalIn the event this information is protected by the Federal Confidentiality of Alcohol and Drug Abuse Patient Records regulations: The Federal rules restrict any use of the information to criminally investigate or prosecute any alcohol or drug abuse patient.[facility] HospitalIn the event this information is protected by the Federal Confidentiality of Alcohol and Drug Abuse Patient Records regulations: The Federal rules restrict any use of the information to criminally investigate or prosecute any alcohol or drug abuse patient.[facility] HospitalIn the event this information is protected by the Federal Confidentiality of Alcohol and Drug Abuse Patient Records regulations: The Federal rules restrict any use of the information to criminally investigate or prosecute any alcohol or drug abuse patient.[facility] HospitalIn the event this information is protected by the Federal Confidentiality of Alcohol and Drug Abuse Patient Records regulations: The Federal rules restrict any use of the information to criminally investigate or prosecute any alcohol or drug abuse patient.[facility] HospitalIn the event this information is protected by the Federal Confidentiality of Alcohol and Drug Abuse Patient Records regulations: The Federal rules restrict any use of the information to criminally investigate or prosecute any alcohol or drug abuse patient.[facility] HospitalIn the event this information is protected by the Federal Confidentiality of Alcohol and Drug Abuse Patient Records regulations: The Federal rules restrict any use of the information to criminally investigate or prosecute any alcohol or drug abuse patient.[facility] HospitalIn the event this information is protected by the Federal Confidentiality of Alcohol and Drug Abuse Patient Records regulations: The Federal rules restrict any use of the information to criminally investigate or prosecute any alcohol or drug abuse patient.[facility] HospitalIn the event this information is protected by the Federal Confidentiality of Alcohol and Drug Abuse Patient Records regulations: The Federal rules restrict any use of the information to criminally investigate or prosecute any alcohol or drug abuse patient.[facility] HospitalIn the event this information is protected by the Federal Confidentiality of Alcohol and Drug Abuse Patient Records regulations: The Federal rules restrict any use of the information to criminally investigate or prosecute any alcohol or drug abuse patient.[facility] HospitalIn the event this information is protected by the Federal Confidentiality of Alcohol and Drug Abuse Patient Records regulations: The Federal rules restrict any use of the information to criminally investigate or prosecute any alcohol or drug abuse patient.[facility] HospitalIn the event this information is protected by the Federal Confidentiality of Alcohol and Drug Abuse Patient Records regulations: The Federal rules restrict any use of the information to criminally investigate or prosecute any alcohol or drug abuse patient.[facility] HospitalIn the event this information is protected by the Federal Confidentiality of Alcohol and Drug Abuse Patient Records regulations: The Federal rules restrict any use of the information to criminally investigate or prosecute any alcohol or drug abuse patient.[facility] HospitalIn the event this information is protected by the Federal Confidentiality of Alcohol and Drug Abuse Patient Records regulations: The Federal rules restrict any use of the information to criminally investigate or prosecute any alcohol or drug abuse patient.[facility] HospitalIn the event this information is protected by the Federal Confidentiality of Alcohol and Drug Abuse Patient Records regulations: The Federal rules restrict any use of the information to criminally investigate or prosecute any alcohol or drug abuse patient.[facility] HospitalIn the event this information is protected by the Federal Confidentiality of Alcohol and Drug Abuse Patient Records regulations: The Federal rules restrict any use of the information to criminally investigate or prosecute any alcohol or drug abuse patient.[facility] HospitalIn the event this information is protected by the Federal Confidentiality of Alcohol and Drug Abuse Patient Records regulations: The Federal rules restrict any use of the information to criminally investigate or prosecute any alcohol or drug abuse patient.[facility] HospitalIn the event this information is protected by the Federal Confidentiality of Alcohol and Drug Abuse Patient Records regulations: The Federal rules restrict any use of the information to criminally investigate or prosecute any alcohol or drug abuse patient.[facility] HospitalIn the event this information is protected by the Federal Confidentiality of Alcohol and Drug Abuse Patient Records regulations: The Federal rules restrict any use of the information to criminally investigate or prosecute any alcohol or drug abuse patient.[facility] HospitalIn the event this information is protected by the Federal Confidentiality of Alcohol and Drug Abuse Patient Records regulations: The Federal rules restrict any use of the information to criminally investigate or prosecute any alcohol or drug abuse patient.[facility]In the event this information is protected by the Federal Confidentiality of Alcohol and Drug Abuse Patient Records regulations: The Federal rules restrict any use of the information to criminally investigate or prosecute any alcohol or drug abuse patient.[facility] HospitalIn the event this information is protected by the Federal Confidentiality of Alcohol and Drug Abuse Patient Records regulations: The Federal rules restrict any use of the information to criminally investigate or prosecute any alcohol or drug abuse patient.[facility] HospitalIn the event this information is protected by the Federal Confidentiality of Alcohol and Drug Abuse Patient Records regulations: The Federal rules restrict any use of the information to criminally investigate or prosecute any alcohol or drug abuse patient.[facility] HospitalIn the event this information is protected by the Federal Confidentiality of Alcohol and Drug Abuse Patient Records regulations: The Federal rules restrict any use of the information to criminally investigate or prosecute any alcohol or drug abuse patient.[facility] HospitalIn the event this information is protected by the Federal Confidentiality of Alcohol and Drug Abuse Patient Records regulations: The Federal rules restrict any use of the information to criminally investigate or prosecute any alcohol or drug abuse patient.[facility] HospitalIn the event this information is protected by the Federal Confidentiality of Alcohol and Drug Abuse Patient Records regulations: The Federal rules restrict any use of the information to criminally investigate or prosecute any alcohol or drug abuse patient.[facility] HospitalIn the event this information is protected by the Federal Confidentiality of Alcohol and Drug Abuse Patient Records regulations: The Federal rules restrict any use of the information to criminally investigate or prosecute any alcohol or drug abuse patient.[facility] HospitalIn the event this information is protected by the Federal Confidentiality of Alcohol and Drug Abuse Patient Records regulations: The Federal rules restrict any use of the information to criminally investigate or prosecute any alcohol or drug abuse patient.[facility] HospitalIn the event this information is protected by the Federal Confidentiality of Alcohol and Drug Abuse Patient Records regulations: The Federal rules restrict any use of the information to criminally investigate or prosecute any alcohol or drug abuse patient.[facility] HospitalIn the event this information is protected by the Federal Confidentiality of Alcohol and Drug Abuse Patient Records regulations: The Federal rules restrict any use of the information to criminally investigate or prosecute any alcohol or drug abuse patient.[facility] HospitalIn the event this information is protected by the Federal Confidentiality of Alcohol and Drug Abuse Patient Records regulations: The Federal rules restrict any use of the information to criminally investigate or prosecute any alcohol or drug abuse patient.[facility] HospitalIn the event this information is protected by the Federal Confidentiality of Alcohol and Drug Abuse Patient Records regulations: The Federal rules restrict any use of the information to criminally investigate or prosecute any alcohol or drug abuse patient.[facility] HospitalIn the event this information is protected by the Federal Confidentiality of Alcohol and Drug Abuse Patient Records regulations: The Federal rules restrict any use of the information to criminally investigate or prosecute any alcohol or drug abuse patient.[facility] HospitalIn the event this information is protected by the Federal Confidentiality of Alcohol and Drug Abuse Patient Records regulations: The Federal rules restrict any use of the information to criminally investigate or prosecute any alcohol or drug abuse patient.[facility] HospitalIn the event this information is protected by the Federal Confidentiality of Alcohol and Drug Abuse Patient Records regulations: The Federal rules restrict any use of the information to criminally investigate or prosecute any alcohol or drug abuse patient.[facility] HospitalIn the event this information is protected by the Federal Confidentiality of Alcohol and Drug Abuse Patient Records regulations: The Federal rules restrict any use of the information to criminally investigate or prosecute any alcohol or drug abuse patient.[facility] HospitalIn the event this information is protected by the Federal Confidentiality of Alcohol and Drug Abuse Patient Records regulations: The Federal rules restrict any use of the information to criminally investigate or prosecute any alcohol or drug abuse patient.[facility] HospitalIn the event this information is protected by the Federal Confidentiality of Alcohol and Drug Abuse Patient Records regulations: The Federal rules restrict any use of the information to criminally investigate or prosecute any alcohol or drug abuse patient.[facility] HospitalIn the event this information is protected by the Federal Confidentiality of Alcohol and Drug Abuse Patient Records regulations: The Federal rules restrict any use of the information to criminally investigate or prosecute any alcohol or drug abuse patient.[facility] HospitalIn the event this information is protected by the Federal Confidentiality of Alcohol and Drug Abuse Patient Records regulations: The Federal rules restrict any use of the information to criminally investigate or prosecute any alcohol or drug abuse patient.[facility] HospitalIn the event this information is protected by the Federal Confidentiality of Alcohol and Drug Abuse Patient Records regulations: The Federal rules restrict any use of the information to criminally investigate or prosecute any alcohol or drug abuse patient.[facility] HospitalIn the event this information is protected by the Federal Confidentiality of Alcohol and Drug Abuse Patient Records regulations: The Federal rules restrict any use of the information to criminally investigate or prosecute any alcohol or drug abuse patient.[facility] HospitalIn the event this information is protected by the Federal Confidentiality of Alcohol and Drug Abuse Patient Records regulations: The Federal rules restrict any use of the information to criminally investigate or prosecute any alcohol or drug abuse patient.[facility] HospitalIn the event this information is protected by the Federal Confidentiality of Alcohol and Drug Abuse Patient Records regulations: The Federal rules restrict any use of the information to criminally investigate or prosecute any alcohol or drug abuse patient.[facility] HospitalIn the event this information is protected by the Federal Confidentiality of Alcohol and Drug Abuse Patient Records regulations: The Federal rules restrict any use of the information to criminally investigate or prosecute any alcohol or drug abuse patient.[facility] HospitalIn the event this information is protected by the Federal Confidentiality of Alcohol and Drug Abuse Patient Records regulations: The Federal rules restrict any use of the information to criminally investigate or prosecute any alcohol or drug abuse patient.[facility] HospitalIn the event this information is protected by the Federal Confidentiality of Alcohol and Drug Abuse Patient Records regulations: The Federal rules restrict any use of the information to criminally investigate or prosecute any alcohol or drug abuse patient.[facility] HospitalIn the event this information is protected by the Federal Confidentiality of Alcohol and Drug Abuse Patient Records regulations: The Federal rules restrict any use of the information to criminally investigate or prosecute any alcohol or drug abuse patient.[facility] HospitalIn the event this information is protected by the Federal Confidentiality of Alcohol and Drug Abuse Patient Records regulations: The Federal rules restrict any use of the information to criminally investigate or prosecute any alcohol or drug abuse patient.[facility] HospitalIn the event this information is protected by the Federal Confidentiality of Alcohol and Drug Abuse Patient Records regulations: The Federal rules restrict any use of the information to criminally investigate or prosecute any alcohol or drug abuse patient.[facility] HospitalIn the event this information is protected by the Federal Confidentiality of Alcohol and Drug Abuse Patient Records regulations: The Federal rules restrict any use of the information to criminally investigate or prosecute any alcohol or drug abuse patient.[facility] HospitalIn the event this information is protected by the Federal Confidentiality of Alcohol and Drug Abuse Patient Records regulations: The Federal rules restrict any use of the information to criminally investigate or prosecute any alcohol or drug abuse patient.[facility] HospitalIn the event this information is protected by the Federal Confidentiality of Alcohol and Drug Abuse Patient Records regulations: The Federal rules restrict any use of the information to criminally investigate or prosecute any alcohol or drug abuse patient.[facility] HospitalIn the event this information is protected by the Federal Confidentiality of Alcohol and Drug Abuse Patient Records regulations: The Federal rules restrict any use of the information to criminally investigate or prosecute any alcohol or drug abuse patient.[facility] HospitalIn the event this information is protected by the Federal Confidentiality of Alcohol and Drug Abuse Patient Records regulations: The Federal rules restrict any use of the information to criminally investigate or prosecute any alcohol or drug abuse patient.[facility] HospitalIn the event this information is protected by the Federal Confidentiality of Alcohol and Drug Abuse Patient Records regulations: The Federal rules restrict any use of the information to criminally investigate or prosecute any alcohol or drug abuse patient.[facility] HospitalIn the event this information is protected by the Federal Confidentiality of Alcohol and Drug Abuse Patient Records regulations: The Federal rules restrict any use of the information to criminally investigate or prosecute any alcohol or drug abuse patient.[facility] HospitalIn the event this information is protected by the Federal Confidentiality of Alcohol and Drug Abuse Patient Records regulations: The Federal rules restrict any use of the information to criminally investigate or prosecute any alcohol or drug abuse patient.[facility] HospitalIn the event this information is protected by the Federal Confidentiality of Alcohol and Drug Abuse Patient Records regulations: The Federal rules restrict any use of the information to criminally investigate or prosecute any alcohol or drug abuse patient.[facility] Reason for Visit (unrecogniz ed section and content) Reason Comments in office follow up Reason Comments Medication Question Reason Onset Date Comments Refill Request 07/17/2021 Reason Comments Lab Orders Reason Comments Handicap sticker Reason Comments Prescription Refills Reason Comments Forms/letter Reason Comments Insurance Authorization rollator walker Reason Comments Orders Reason Comments Rx issue Reason Onset Date Comments Refill Request 11/04/2021 Reason Comments Appointment Reason Comments Recheck Back Pain Reason Comments Action tremor Specialty Diagnoses / Procedures Referred By Contac t Referred To Contact Diagnoses Action tremor Restless leg syndrome Procedures PROVIDER ORDERED FOLLOW UP OFFICE/OUTPATIENT NEW [facility] MDM 60-74 MINUTES [facility] [address] [place] [address] Mikhail Gallardo [place] [phone] Referral ID Status Reason Start Date Expiration Date Visits Requested Visits Authorized [id number] Authorized PCP Requested Referral 11/14/2021 02/12/2022 4 4 Reason Onset Date Comments Refill Request 12/27/2021 Reason Onset Date Comments Refill Request 12/28/2021 Reason Comments Medication question Reason Onset Date Comments Refill Request 01/16/2022 Reason Onset Date Comments Refill Request 03/02/2022 Reason Onset Date Comments Opened In Error 03/05/2022 Reason Onset Date Comments Refill Request 03/07/2022 Reason Onset Date Comments Refill Request 03/14/2022 Reason Onset Date Comments Refill Request 03/24/2022 Reason Onset Date Comments Refill Request 03/28/2022 Reason Onset Date Comments Refill Request 04/10/2022 Reason Comments Established Patient Medication follow up Reason Comments Insurance Authorization Reason Onset Date Comments Refill Request 04/14/2022 Reason Onset Date Comments Refill Request 04/23/2022 Reason Onset Date Comments Refill Request 04/25/2022 Reason Comments Patient Question Reason Onset Date Comments Refill Request 06/05/2022 Reason Comments Leg Edema Reason Comments Edema Reason Onset Date Comments Refill Request 06/09/2022 Reason Comments ER follow up - see triage note. Reason Comments Low Back Pain Reason Onset Date Comments Refill Request 06/27/2022 Reason Onset Date Comments Refill Request 06/30/2022 Reason Onset Date Comments Refill Request 07/11/2022 Reason Comments Blood sugar over 300 Reason Comments transfer of care Reason Comments Results Reason Comments Follow Up Specialty Diagnoses / Procedures Referred By Contac t Referred To Contact Diagnoses Action tremor Restless legs syndrome Procedures PROVIDER ORDERED FOLLOW UP OFFICE/OUTPATIENT NEW HIGH MDM 60-74 MINUTES Jennifer Gallardo, TOMASA.MANAGER OF PHARMACY [address] [place] [address] Referral ID Status Reason Start Date Expiration Date Visits Requested Visits Authorized [id number] Pending Review PCP Requested Referral 07/07/2023 1 1 Reason Onset Date Comments Refill Request 10/14/2022 Appointment Rescheduled 10/14/2022 Reason Comments Medication Problem Reason Comments Med Change Request Reason Comments Action tremor Reason Onset Date Comments Refill Request 11/03/2022 Reason Onset Date Comments Population Health Navigation Outreach 11/17/2022 [employer] care gaps Reason Onset Date Comments Refill Request 11/17/2022 Reason Onset Date Comments Refill Request 11/18/2022 Reason Comments Opened In Error Reason Comments Prior authorization -medication Reason Comments Knee Pain Reason Comments ED Follow-up Specialty Diagnoses / Procedures Referred By Contac t Referred To Contact FAMILY MEDICINE Diagnoses Hospital follow up Procedures [place] [address] [place] [address] [facility] [address] [place] [address] Referral ID Status Reason Start Date Expiration Date Visits Requested Visits Authorized [id number] Pending Review OON/Self Pay Override 12/16/2022 06/14/2023 1 1 Reason Onset Date Comments Refill Request 12/19/2022 Reason Comments Patient Update Patient Question Reason Comments Knee Pain left knee pain x 1 m onth, fell twice using mobic Reason Onset Date Comments Refill Request 01/05/2023 Reason Onset Date Comments Refill Request 01/21/2023 Reason Comments New Pain Specialty Diagnoses / Procedures Referred By Contac t Referred To Contact ORTHOPAEDIC SURGERY Diagnoses multiple falls acute pain of left knee Procedures Office visit Krystyna Simpson MD [address] [place] [address] [facility] [address] [place] [address] Referral ID Status Reason Start Date Expiration Date Visits Requested Visits Authorized [id number] Pending Review OON/Self Pay Override 12/17/2022 06/15/2023 1 1 Reason Comments Results mri Care Teams (unrecognized sec tion and content) Business Asst Relationship Specialty Start Date End Date Timmy Park MD [address] [facility] [place] [address] PCP - General Internal Medicine 12/20/15 Timmy Park MD [address] [place] [address] Internal Medicine 12/20/15 Business Asst Relationship Specialty Start Date End Date Timmy Park MD [address] [place] [address] PCP - General Internal Medicine 12/20/15 Timmy Park MD [address] [facility] [place] [address] Internal Medicine 12/20/15 Business Asst Relationship Specialty Start Date End Date Timmy Park MD [address] [facility] [address] PCP - General Internal Medicine 12/20/15 Timmy Park MD [address] [facility] [address] Internal Medicine 12/20/15 Business Asst Relationship Specialty Start Date End Date Timmy Park MD [address] [facility] [address] PCP - General Internal Medicine 12/20/15 Timmy Park MD [address] [facility] [address] Internal Medicine 12/20/15 Business Asst Relationship Specialty Start Date End Date Timmy Park MD [address] [place] [address] PCP - General Internal Medicine 12/20/15 Timmy Park MD [address] [place] [address] Internal Medicine 12/20/15 Business Asst Relationship Specialty Start Date End Date Timmy Park MD [address] [place] [address] PCP - General Internal Medicine 12/20/15 Timmy Park MD [address] [place] [address] Internal Medicine 12/20/15 Business Asst Relationship Specialty Start Date End Date Timmy Park MD [address] [place] [address] PCP - General Internal Medicine 12/20/15 Timmy Park MD [address] [place] [address] Internal Medicine 12/20/15 Business Asst Relationship Specialty Start Date End Date Timmy Park MD [address] [place] [address] PCP - General Internal Medicine 12/20/15 Timmy Park MD [address] [place] [address] Internal Medicine 12/20/15 Business Asst Relationship Specialty Start Date End Date Timmy Park MD [address] [place] [address] PCP - General Internal Medicine 12/20/15 Timmy Park MD [address] [place] [address] Internal Medicine 12/20/15 Business Asst Relationship Specialty Start Date End Date Timmy Park MD [address] [place] [address] PCP - General Internal Medicine 12/20/15 Timmy Park MD [address] [place] [address] Internal Medicine 12/20/15 Business Asst Relationship Specialty Start Date End Date Timmy Park MD [address] [place] [address] PCP - General Internal Medicine 12/20/15 Timmy Park MD [address] [place] [address] Internal Medicine 12/20/15 Business Asst Relationship Specialty Start Date End Date Timmy Park MD [address] [place] [address] PCP - General Internal Medicine 12/20/15 Timmy Park MD [address] [place] [address] Internal Medicine 12/20/15 Business Asst Relationship Specialty Start Date End Date Timmy Park MD [address] [place] [address] PCP - General Internal Medicine 12/20/15 Timmy Park MD [address] [place] [address] Internal Medicine 12/20/15 Business Asst Relationship Specialty Start Date End Date Timmy Park MD [address] [facility] [address] PCP - General Internal Medicine 12/20/15 Timmy Park MD [address] [place] [address] Internal Medicine 12/20/15 Business Asst Relationship Specialty Start Date End Date Timmy Park MD [address] [place] [address] PCP - General Internal Medicine 12/20/15 Timmy Park MD [address] [place] [address] Internal Medicine 12/20/15 Business Asst Relationship Specialty Start Date End Date Timmy Park MD [address] [facility] [address] PCP - General Internal Medicine 12/20/15 Timmy Park MD [address] [place] [address] Internal Medicine 12/20/15 Business Asst Relationship Specialty Start Date End Date Timmy Park MD [address] [place] [address] PCP - General Internal Medicine 12/20/15 Timmy Park MD [address] [place] [address] Internal Medicine 12/20/15 Business Asst Relationship Specialty Start Date End Date Timmy Park MD [address] [place] [address] PCP - General Internal Medicine 12/20/15 Timmy Park MD [address] [place] [address] Internal Medicine 12/20/15 Business Asst Relationship Specialty Start Date End Date Timmy Park MD [address] [place] [address] PCP - General Internal Medicine 12/20/15 Timmy Park MD [address] [place] [address] Internal Medicine 12/20/15 Business Asst Relationship Specialty Start Date End Date Timmy Park MD [address] [place] [address] PCP - General Internal Medicine 12/20/15 Timmy Park MD [address] [place] [address] Internal Medicine 12/20/15 Business Asst Relationship Specialty Start Date End Date Timmy Park MD [address] [place] [address] PCP - General Internal Medicine 12/20/15 Timmy Park MD [address] [place] [address] Internal Medicine 12/20/15 Business Asst Relationship Specialty Start Date End Date Timmy Park MD [address] [place] [address] PCP - General Internal Medicine 12/20/15 Timmy Park MD [address] [place] [address] Internal Medicine 12/20/15 Business Asst Relationship Specialty Start Date End Date Timmy Park MD [address] [place] [address] PCP - General Internal Medicine 12/20/15 Timmy Park MD [address] [place] [address] Internal Medicine 12/20/15 Business Asst Relationship Specialty Start Date End Date Timmy Park MD [address] [place] [address] PCP - General Internal Medicine 12/20/15 Timmy Park MD [address] [place] [address] Internal Medicine 12/20/15 Business Asst Relationship Specialty Start Date End Date Timmy Park MD [address] [place] [address] PCP - General Internal Medicine 12/20/15 09/08/22 Krystyna Simpson MD [address] [place] [address] PCP - General Family Medicine 09/09/22 Timmy Park MD [address] [place] [address] Internal Medicine 12/20/15 Business Asst Relationship Specialty Start Date End Date Krystyna Simpson MD [address] [place] [address] PCP - General Family Medicine 09/09/22 Timmy Park MD [address] [place] [address] Internal Medicine 12/20/15 Business Asst Relationship Specialty Start Date End Date Krystyna Simpson MD [address] [place] [address] PCP - General Family Medicine 09/09/22 Timmy Park MD [address] [place] [address] Internal Medicine 12/20/15 Business Asst Relationship Specialty Start Date End Date Krystyna Simpson MD [address] [place] [address] PCP - General Family Medicine 09/09/22 Timmy Park MD [address] [place] [address] Internal Medicine 12/20/15 Business Asst Relationship Specialty Start Date End Date Krystyna Simpson MD [address] [place] [address] PCP - General Family Medicine 09/09/22 Timmy Park MD [address] [place] [address] Internal Medicine 12/20/15 Business Asst Relationship Specialty Start Date End Date Krystyna Simpson MD [address] [place] [address] PCP - General Family Medicine 09/09/22 Timmy Park MD [address] [place] [address] Internal Medicine 12/20/15 Business Asst Relationship Specialty Start Date End Date Krystyna Simpson MD [address] [place] [address] PCP - General Family Medicine 09/09/22 Timmy Park MD [address] [place] [address] Internal Medicine 12/20/15 Business Asst Relationship Specialty Start Date End Date Krystyna Simpson MD [address] [place] [address] PCP - General Family Medicine 09/09/22 Timmy Park MD [address] [place] [address] Internal Medicine 12/20/15 Business Asst Relationship Specialty Start Date End Date Krystyna Simpson MD [address] [place] [address] PCP - General Family Medicine 09/09/22 Timmy Park MD [address] [place] [address] Internal Medicine 12/20/15 Business Asst Relationship Specialty Start Date End Date Krystyna Simpson MD [address] [place] [address] PCP - General Family Medicine 09/09/22 Timmy Park MD [address] [place] [address] Internal Medicine 12/20/15 Business Asst Relationship Specialty Start Date End Date Krystyna Simpson MD [address] [place] [address] PCP - General Family Medicine 09/09/22 Timmy Park MD [address] [place] [address] Internal Medicine 12/20/15 Business Asst Relationship Specialty Start Date End Date Pcp, No, [employer] PCP - General 06/27/09 01/27/10 Pcp, No, [employer] PCP - General 07/29/06 11/28/07 Pcp, No, [employer] PCP - General 01/12/14 07/27/14 Pcp, No, [employer] PCP - General 06/07/15 12/19/15 Timmy Park MD [address] [place], [place] [address] PCP - General Internal Medicine 12/20/15 09/08/22 Krystyna Simpson MD [address] [place], [place] [address] PCP - General Family Medicine 09/09/22 Timmy Park MD [address] [place], [place] [address] Internal Medicine 12/20/15 Business Asst Relationship Specialty Start Date End Date Pcp, No, [employer] PCP - General 06/27/09 01/27/10 Pcp, No, [employer] PCP - General 07/29/06 11/28/07 Pcp, No, [employer] PCP - General 01/12/14 07/27/14 Pcp, No, [employer] PCP - General 06/07/15 12/19/15 Timmy Park MD [address] [place], [place] [address] PCP - General Internal Medicine 12/20/15 09/08/22 Krystyna Simpson MD [address] [place], [place] [id number] PCP - General Family Medicine 09/09/22 Timmy Park MD [address] [place], [place] [address] Internal Medicine 12/20/15 Business Asst Relationship Specialty Start Date End Date Krystyna Simpson MD [address] [place] [address] PCP - General Family Medicine 09/09/22 Timmy Park MD [address] [place] [address] Internal Medicine 12/20/15 Business Asst Relationship Specialty Start Date End Date Timmy Park MD [address] [place] [address] Internal Medicine 12/20/15 Business Asst Relationship Specialty Start Date End Date Timmy Park MD [address] [place] [address] Internal Medicine 12/20/15 Business Asst Relationship Specialty Start Date End Date Timmy Park MD [address] [place] [address] Internal Medicine 12/20/15 Business Asst Relationship Specialty Start Date End Date Timmy Park MD [address] [place] [address] Internal Medicine 12/20/15 Business Asst Relationship Specialty Start Date End Date Timmy Park MD [address] [place], [place] [address] Internal Medicine 12/20/15 Business Asst Relationship Specialty Start Date End Date Timmy Park MD [address] [place] [address] Internal Medicine 12/20/15 Business Asst Relationship Specialty Start Date End Date Timmy Park MD [address] [place] [address] Internal Medicine 12/20/15 FOR RECORDS PERTAINING TO PATIENTS WHO ARE OR HAVE BEEN ENROLLED IN A CHEMICAL DEPENDENCY/SUBSTANCEABUSE PROGRAM, SOME INFORMATION MAY BE OMITTED. This clinical summary was aggregated from multiple sources. Caution should be exercised in using it in the provision of clinical care. This summary normalizes information from multiple sources, and as a consequence, information in this document may materially change the coding, format and clinical context of patient data. In addition, data may be omitted in some cases. CLINICAL DECISIONS SHOULD BE BASED ON THE PRIMARY CLINICAL RECORDS. [employer] provides no warranty or guarantee of the accuracy or completeness of information in this document.
[2023-04-27 16:33] LABS: Absolute Neutrophil Count 6.8 X10^3/uL (2.0-7.7); Basophil# 0.05 X10^3/uL; Basophil% 0.4 % (0-1); Eosinophil# 0.13 X10^3/uL; Eosinophils% 1.1 % (0-5); Hematocrit 40.7 % (37-47); Hemoglobin 13.1 g/dL (12.0-15.0); Lymphocyte % 34.8 % (19-41); Mean Corp Hgb Conc 32.2 g/dL (32-36); Mean Corpuscular Hgb 31.6 pg (27.0-32.0); Mean Corpuscular Volume 98.3 fL (81-99); Monocyte# 0.65 X10^3/uL; Monocyte% 5.5 % (0-10); NRBC Flagged by Analyzer 0 % (0-5); Neutrophil # 6.79 X10^3/uL (2.7-7.7); Neutrophil % 57.7 % (47-70); Platelet Count 391 K/mm3 (150-450); RBC Distribution Width CV 13.5 % (11.6-14.6); RBC Distribution Width SD 48.4 fl (35.1-43.9); Red Blood Count 4.14 M/mm3 (4.2-5.4); White Blood Count 11.8 K/mm3 (4.4-11.0)
[2023-04-27 16:50] LABS: Color, Urine Yellow (Yellow); Glucose, Dipstick Normal (Normal); Ketone-Dipstick 5 mg/dl (Negative); Leukocyte Esterase-Dipstick 25 /ul (Negative); Nitrite-Dipstick Negative (Negative); Occult Blood-Urine 10 /ul (Negative); Protein-Dipstick 30 mg/dl (Negative); Urine Bilirubin Dipstick Negative (Negative); Urine Clarity Sl. Cloudy (Clear); Urine Urobilinogen 1 mg/dl (Normal)
[2023-04-27 16:57] LABS: Bacteria RARE /hpf (None Seen); Mucous, Urine 1+ /hpf (<or=2+); Squamous Epithelial Cells - UA 5-10 SEEN /hpf (5-10); White Blood Cells 0-5 SEEN /hpf (0-5)
[2023-04-27 20:29] LABS: ALB/GLOB Ratio 0.8 RATIO (0.9-2.4); AST(SGOT) 20 U/L (15-37); Alanine Aminotransfer ALT/SGPT 21 U/L (13-56); Alkaline Phosphatase 113 U/L (45-117); Anion Gap 5 (5-15); BUN 6 mg/dL (7-18); BUN/Creat Ratio 9.8 RATIO (10-20); Calcium,Total 8.6 mg/dL (8.5-10.1); Chloride 108 mmol/L (98-107); Cholesterol 344 mg/dL (200); Creatinine, Serum 0.62 mg/dL (0.55-1.02); EST Glomerular Filtration Rate 111 mL/min (>60); Est Glom Filt Rate - Afr Amer 134 mL/min (>60); Globulin 3.8 g/dL (2.2-4.2); Glucose 89 mg/dL (74-106); High Density Lipoprotein 39 mg/dL; Potassium 3.7 mmol/L (3.5-5.1); Protein, Total 6.8 g/dL (6.4-8.2); Rheumatoid Factor < 10.0 IU/mL (<15); Sodium Level 137 mmol/L (136-145); Thyroid Stim Hormone (TSH) 1.72 uIU/mL (0.358-3.74); Triglycerides 1333 mg/dL
[2023-04-29 13:08] LABS: ANTINUCLEAR ANTIBODIES DIRECT Negative (Negative)
== END | disposition home or self-care (01) ==
LOC: BIMLAB 15:36
PROVIDERS: PCP Nurse Practitioner; Referring Provider Nurse Practitioner; Visit Provider Nurse Practitioner
DX: E11.9 Type 2 diabetes mellitus without complications (principal)
CPT/HCPCS: 36415; 80053; 80061; 81001; 84443; 85025; 86038; 86225; 86235; 86431

== ENCOUNTER → 2023-06-05 | Outpatient (CLI) | payer MEDICARE, MEDICAID, SELFPAY ==
--- OUTSIDE RECORDS SUMMARY | 2023-06-05 10:17 | XMS RPT_ITS | CCD ---
Author Name Unknown Address [address] [place] [address] Organization [facility] Care Team Providers Care Real Estate Transaction Coordinator Name Role Phone JEVON CAT Unavailable Unavailable TIMMY PARK Unavailable Unavailable TIMMY PARK Unavailable Unavailable MEORY JEVON FMeghana Unavailable Unavailable DARYA CATL FeMghana Unavailable Unavailable TIMMY PARK Unavailable Unavailable ROXANNAANDREA GEORGE Unavailable Unavailable ROXANNAANDREA GEORGE Unavailable Unavailable TIMMY PARK H Unavailable Unavailable ROXANNAANDREA GEORGE Unavailable Unavailable XAVIER, LORA Unavailable Unavailable PROVIDER, UNKNOWN Unavailable Unavailable DIOP, ANDRÉS Unavailable Unavailable PARK, LORA Unavailable Unavailable DIOP, ANDRÉS Unavailable Unavailable DIOP, [...] MD Primary Care Provider Timmy Park MD Primary Care Provider [phone] Krystyna Simpson MD Primary Care Provider Pcp RUSTIC TERRAZZO SETTER, No Primary Care Provider Unavailabl e Pcp RUSTIC TERRAZZO SETTER, No Primary Care Provider Unavailabl e Pcp RUSTIC TERRAZZO SETTER, No Primary Care Provider Unavailabl e Pcp RUSTIC TERRAZZO SETTER, No Primary Care Provider Unavailabl e Unavailable Primary Care Provider UnavailJENNIFER Hudson Attending Unavailable TIMMY PARK Primary Care Unavailable [facility] Referring Unavailable KRYSTYNA SIMPSON Attending Unavailab TIMMY Kumar Primary Care Unavailable TIMMY PARK Primary Care Unavailable KRYSTYNA SIMPSON Referring Unavailab KRYSTYNA Diaz Referring Unavailab KRYSTYNA Diaz Primary Care Unavailab KRYSTYNA Diaz Attending Unavailab JENNIFER Bertrand Attending Unavailable JENNIFER GALLARDO Referring Unavailable KRYSTYNA SIMPSON Primary Care Unavailab TIMMY Kumar Attending Unavailable TIMMY PARK Primary Care Unavailable PODLOGAR, KAILEE Attending Unavailable KRYSTYNA SIMPSON Primary Care Unavailab KRYSTYNA Diaz Primary Care Unavailab JENNIFER Bertrand Attending Unavailable KRYSTYNA SIMPSON Referring Unavailab FROY Stein Attending Unavailable FROY GORDON Referring Unavailable JENNIFER GALLARDO Attending Unavailable TIMMY PARK Primary Care Unavailable PATRICIA MCGILL Attending Unavailable TIMMY PARK Primary Care Unavailable PATRICIA MCGILL Attending Unavailable TIMMY PARK Primary Care Unavailable PATRICIA MCGILL Referring Unavailable PHYSICIAN, NONE Primary Care Physician Unavailab le PHYSICIAN, NONE Primary Care Unavailable BRIANDA RAMIREZ MD Attending Unavailable SUSAN DUONG DO Attending Unavailable PHYSICIAN, NONE Primary Care Unavailable Timmy Park MD Unavailable Krystyna Simpson MD Primary Care Provider Allergies Allergy Classification Reported Allergen(s) Allergy Type Date of Onset Reaction(s) Facility (4 sources) adenine; Translations: [NAPROXEN] Drug Allergy 01-14-[address] [facility] [facility] Repository (4 sources) corticotropin; Translations: [AMOXICILLIN] Drug Allergy 04-16-[address] [facility] Repository (1 source) ROBITUSSIN COUGH+CHEST CONGESTION DM MAX Drug allergy (disorder) [facility] Repository (20 sources) Dust; Translations: [DUST] Propensity to adverse reactions (disorder) 12-12-19 06 sneezing and runny nose [facility] Repository (20 sources) House dust mite; Translations: [DUST MITES] Propensity to adverse reactions (disorder) 12-12-19 06 [facility] Repository (20 sources) Pollen; Translations: [POLLEN] Propensity to adverse reactions (disorder) 12-12-19 06 sneezing and congestion [facility] Repository (3 sources) OTHER; Translations: [OTHER] Propensity to adverse reactions (disorder) 12-12-19 06 [facility] Repository (20 sources) Aloe vera preparation; Translations: [ALOE VERA] Drug [facility] (20 sources) Amoxicillin; Translations: [amoxicillin] Drug Allergy 04-16-19 18 [facility] Work Phone: (20 sources) Cat; Translations: [CATS] Allergy to substance 03-30-19 04 Unknown [facility] Work Phone: (20 sources) Corticotropin; Translations: [CORTICOTROPIN] Drug Allergy 02-17-20 18 [facility] Work Phone: (20 sources) cyclobenzaprine; Translations: [CYCLOBENZAPRINE] Drug Allergy 04-26-19 21 Vomiting [facility] (20 sources) Dextromethorphan / guaiFENesin; Translations: [DEXTROMETHORPHAN-G UAIFENESIN] Drug Allergy 12-16-19 20 [facility] Work Phone: (20 sources) guaiFENesin; Translations: [GUAIFENESIN] Drug Allergy 02-22-20 17 [facility]: (20 sources) Menthol; Translations: [MENTHOL] Drug Allergy 07-03-19 [facility]: (20 sources) Mold Extract; Translations: [MOLD] Drug Allergy 02-22-20 17 Itching [facility] Work Phone: [phone] (20 sources) Naproxen; Translations: [naproxen] Drug Allergy 01-14-20 14 GI Upset, Other: See Comments [facility] (20 sources) Pollen; Translations: [POLLEN EXTRACTS] Drug Allergy 12-16-19 20 Itching [facility] Work Phone: (20 sources) shrimp allergenic extract; Translations: [SHRIMP] Drug Allergy 11-07-19 19 Vomiting [facility] Work Phone: [phone] (20 sources) Sulfonamides (Antibiotic); Translations: [SULFA (SULFONAMIDE ANTIBIOTICS)] Drug Allergy 05-04-19 19 Vomiting [facility] Work Phone: [phone] (20 sources) Vitamin E; Translations: [VITAMIN E] Drug Allergy 07-03-19 21 Vomiting [facility] Work Phone: [phone] (20 sources) BEE STINGS [Other] Propensity to adverse reactions 12-12-19 06 [facility] Work Phone: (20 sources) alpha Tocopherol Drug Allergy 07-03-19 21 Vomiting [facility] Work Phone: (20 sources) atorvastatin; Translations: [ATORVASTATIN] Drug Allergy 11-26-19 23 GI U[facility]et [facility] Work Phone: (2 sources) Bee Venom Protein (Honey Bee) Drug Allergy 05-07-19 24 Anaphylaxis [facility] Work Phone: (1 source) Bee/Wasp/Ant venom Allergy to substance 03-30-19 05 Edema (finding) [facility] (1 source) Dextromethorphan / guaiFENesin / Pseudoephedrine; Translations: [dextromethorphan/g uaifenesin/pseudoep hedrine] Drug Allergy [facility] Medications Current Medications Medication Drug Class(es) Dates Sig (Normalized) Sig (Original) cetirizine hydrochloride 10 mg oral tablet (1 source) Histamine-1 Receptor Antagonist Start: 04-01-2016 cetirizine 10 mg oral tablet (NF) Dose : 10 mg = 1 tab(s), Oral, qDay, # 30 tab(s), 0 Refill(s) Start Date: 04/01/16 Status: Ordered doxycycline hyclate 100 mg oral tablet (1 source) Tetracycline-class Drug Start: 05-17-2023 End: 05-27-2023 doxycycline hyclate 100 mg oral tablet Dose : 100 mg = 1 tab(s), PO, BID, X 10 day(s), # 20 tab(s), 0 Refill(s), 05/27/23 4:10:00 PM EST, 59 Start Date: 05/17/23 Stop Date: 05/27/23 Status: Ordered ibuprofen 800 mg oral tablet (1 source) Nonsteroidal Anti-inflammatory Drug Start: 04-01-2016 ibuprofen 800 mg oral tablet Dose : 800 mg = 1 tab(s), Oral, q8h, PRN as needed for pain, # 30 tab(s), 0 Refill(s) Start Date: 04/01/16 Status: Ordered 12 hr orphenadrine citrate 100 mg extended release oral tablet (1 source) Muscle Relaxant Start: 04-01-2016 take 1 dose by mouth twice daily orphenadrine extended release Dose : 100 mg =, Oral, BID, 0 Refill(s) Start Date: 04/01/16 Status: Ordered potassium chloride 1.33 meq/ml oral solution (9 sources) Start: 10-15-2022 End: 10-17-2022 take 15 mL by mouth once daily potassium chloride 20 mEq/15 mL solution Indications: Hypokalemia Take 15 mL by mouth once daily for 2 days. 30 mL 0 10/15/2022 10/17/2022 Active Completed/Discontinued Medications Medication Drug Class(es) Dates Sig (Normalized) Sig (Original) 8 hr acetaminophen 650 mg extended release oral tablet (1 source) Start: 02-09-2018 acetaminophen 650 mg CR tablet 650 mg. 0 02/09/2018 Active Problems Active Problems Problem Classification Problem [...] [Other specified soft tissue disorders] Episodic Other gastrointestinal disorders (1 source) Dysphagia; Translations: [Dysphagia, unspecified] Episodic Other hereditary and degenerative nervous system conditions (20 sources) Restless legs; Translations: [Restless legs syndrome] Onset: 8 12-04-2017 Chronic Other hereditary and degenerative nervous system conditions (20 sources) Intention tremor; Translations: [Other specified forms of tremor] Onset: 0 12-13-2019 Chronic Other hereditary and degenerative nervous system conditions (2 sources) Essential tremor; Translations: [Essential tremor] 10-22-2022 Chronic [...] in unspecified joint] Onset: 8 Episodic Other and delivery including normal (1 source) 01-26-2016 Episodic Past or Other Problems Problem Classification Problem [...] 10-22-2022 10-22-2022 Episodic Other aftercare (1 source) prison (current) use of insulin; Translations: [Controlled type 2 diabetes mellitus without complication, with long-term current use of insulin (HCC)] Onset: 05-11-2019 Episodic Other connective tissue disease (1 source) Repeated falls; Translations: [Multiple falls] Onset: 12-17-2022 Episodic Other connective tissue disease (1 source) Other specified soft tissue disorders; Translations: [Localized swelling of both lower extremities] Onset: 08-26-2022 Episodic Other nervous system disorders (20 sources) Right trigeminal neuralgia; Translations: [Trigeminal neuralgia] Onset: 06-03-2016 06-03-2016 Episodic Other non-traumatic joint disorders (4 sources) Pain in left knee; Translations: [Pain in joint, lower leg] Onset: 12-17-2022 12-18-2022 Episodic Residual codes; unclassified (1 source) Localized edema; Translations: [Bilateral lower extremity edema] Onset: 06-11-2022 Episodic Substance-related disorders (20 sources) Marijuana user; [...] Vital Sign Value Performing Clinician James clark 05-17-2023 16:48-0500 Diastolic Blood Pressure Non-Invasive 75 mm[Hg] BRIANDA RAMIREZ MD [facility] 05-17-2023 16:48-0500 Heart rate 84 /min BRIANDA RAMIREZ MD [facility] 05-17-2023 16:48-0500 Systolic Blood Pressure Non-Invasive 109 mm[Hg] BRIANDA RAMIREZ MD [facility] 05-17-2023 15:26-0500 Body height 160 cm BRIANDA RAMIREZ MD [facility] 05-17-2023 15:26-0500 Body temperature 98.6 [degF] BRIANDA RAMIREZ MD [facility] 05-17-2023 15:26-0500 Body weight 59 kg BRIANDA RAMIREZ MD [facility] 05-17-2023 15:26-0500 Diastolic Blood Pressure Non-Invasive 71 mm[Hg] BRIANDA RAMIREZ MD [facility] 05-17-2023 15:26-0500 Heart rate 91 /min BRIANDA RAMIREZ MD [facility] 05-17-2023 15:26-0500 Respiratory rate 16 /min BRIANDA RAMIREZ MD [facility] 05-17-2023 15:26-0500 Systolic Blood Pressure Non-Invasive 103 mm[Hg] BRIANDA RAMIREZ MD [facility] 12-22-2022 13:52-0400 Body temperature 98.2 [degF] Nighat Quinn RUSTIC TERRAZZO SETTER.GEOLOGICAL TECHNICAL OFFICER Work Phone: [facility] 12-22-2022 13:52-0400 Body weight 53.52 kg Nighat Quinn RUSTIC TERRAZZO SETTER.GEOLOGICAL TECHNICAL OFFICER Work Phone: [facility] 12-22-2022 13:52-0400 Diastolic blood pressure 68 mm[Hg] Nighat Quinn RUSTIC TERRAZZO SETTER.GEOLOGICAL TECHNICAL OFFICER Work Phone: [facility] 12-22-2022 13:52-0400 Heart rate 98 /min Nighat Quinn RUSTIC TERRAZZO SETTER.GEOLOGICAL TECHNICAL OFFICER Work Phone: [facility] 12-22-2022 13:52-0400 Respiratory rate 16 /min Nighat Quinn RUSTIC TERRAZZO SETTER.GEOLOGICAL TECHNICAL OFFICER Work Phone: [facility] 12-22-2022 13:52-0400 SaO2% (BldA) [Mass fraction] 98 % Nighat Quinn RUSTIC TERRAZZO SETTER.GEOLOGICAL TECHNICAL OFFICER Work Phone: [facility] 12-22-2022 13:52-0400 Systolic blood pressure 120 mm[Hg] Nighat Quinn RUSTIC TERRAZZO SETTER.GEOLOGICAL TECHNICAL OFFICER Work Phone: [facility] 12-17-2022 16:22-0400 Body height 157.5 cm Krystyna Simpson MD Work Phone: [facility] 12-17-2022 16:22-0400 Body weight 54.88 kg Krystyna Simpson MD Work Phone: [facility] 12-17-2022 16:22-0400 Diastolic blood pressure 76 mm[Hg] Krystyna Simpson MD Work Phone: [facility] 12-17-2022 16:22-0400 Heart rate 100 /min Krystyna Simpson MD Work Phone: [facility] 12-17-2022 16:22-0400 Respiratory rate 16 /min Krystyna Simpson MD Work Phone: [facility] 12-17-2022 16:22-0400 SaO2% (BldA) [Mass fraction] 98 % Krystyna Simpson MD Work Phone: [facility] 12-17-2022 16:22-0400 Systolic blood pressure 100 mm[Hg] Krystyna Simpson MD Work Phone: [facility] 10-22-2022 12:57-0400 Body height 157.5 cm Jennifer Gallardo RUSTIC TERRAZZO SETTER.GEOLOGICAL TECHNICAL OFFICER Work Phone: [facility] 10-22-2022 12:57-0400 Body weight 56.79 kg Jennifer Gallardo RUSTIC TERRAZZO SETTER.GEOLOGICAL TECHNICAL OFFICER Work Phone: [facility] 10-22-2022 12:57-0400 Diastolic blood pressure 67 mm[Hg] Jennifer Gallardo RUSTIC TERRAZZO SETTER.GEOLOGICAL TECHNICAL OFFICER Work Phone: [facility] 10-22-2022 12:57-0400 Heart rate 82 /min Jennifer Gallardo RUSTIC TERRAZZO SETTER.GEOLOGICAL TECHNICAL OFFICER Work Phone: [facility] 10-22-2022 12:57-0400 SaO2% (BldA) [Mass fraction] 98 % Jennifer Gallardo RUSTIC TERRAZZO SETTER.GEOLOGICAL TECHNICAL OFFICER Work Phone: [facility] 10-22-2022 12:57-0400 Systolic blood pressure 103 mm[Hg] Jennifer Gallardo RUSTIC TERRAZZO SETTER.GEOLOGICAL TECHNICAL OFFICER Work Phone: [facility] 10-15-2022 17:08-0400 Body weight 57.42 kg Kailee Goncalveslogar RUSTIC TERRAZZO SETTER.GEOLOGICAL TECHNICAL OFFICER Work Phone: [facility] 10-15-2022 17:08-0400 Diastolic blood pressure 70 mm[Hg] Kailee Podlogar RUSTIC TERRAZZO SETTER.GEOLOGICAL TECHNICAL OFFICER Work Phone: [facility] 10-15-2022 17:08-0400 Heart rate 69 /min Kailee Podlogar RUSTIC TERRAZZO SETTER.GEOLOGICAL TECHNICAL OFFICER Work Phone: [facility] 10-15-2022 17:08-0400 Respiratory rate 18 /min Kailee Podlogar RUSTIC TERRAZZO SETTER.GEOLOGICAL TECHNICAL OFFICER Work Phone: [facility] 10-15-2022 17:08-0400 SaO2% (BldA) [Mass fraction] 96 % Kailee Podlogluciana RUSTIC TERRAZZO SETTER.GEOLOGICAL TECHNICAL OFFICER Work Phone: [facility] 10-15-2022 17:08-0400 Systolic blood pressure 126 mm[Hg] Kailee Goncalveslogluciana RUSTIC TERRAZZO SETTER.GEOLOGICAL TECHNICAL OFFICER Work Phone: [facility] 08-26-2022 12:59-0400 Body weight 58.88 kg Krystyna Simpson MD Work Phone: [facility] 08-26-2022 12:59-0400 Diastolic blood pressure 70 mm[Hg] Krystyna Simpson MD Work Phone: [facility] 08-26-2022 12:59-0400 Heart rate 56 /min Krystyna Simpson MD Work Phone: [facility] 08-26-2022 12:59-0400 Respiratory rate 16 /min Krystyna Simpson MD Work Phone: [facility] 08-26-2022 12:59-0400 SaO2% (BldA) [Mass fraction] 94 % Krystyna Simpson MD Work Phone: [facility] 08-26-2022 12:59-0400 Systolic blood pressure 110 mm[Hg] Krystyna Simpson MD Work Phone: [facility] 06-16-2022 14:45-0400 Body weight 59.88 kg Timmy Park MD Work Phone: [facility] 06-16-2022 14:45-0400 Diastolic blood pressure 72 mm[Hg] Timmy Park MD Work Phone: [facility] 06-16-2022 14:45-0400 Heart rate 80 /min Timmy Park MD Work Phone: [facility] 06-16-2022 14:45-0400 Respiratory rate 16 /min Timmy Park MD Work Phone: [facility] 06-16-2022 14:45-0400 Systolic blood pressure 118 mm[Hg] Timmy Park MD Work Phone: [facility] 06-11-2022 14:38-0400 Body temperature 97.9 [degF] Patricia Older RUSTIC TERRAZZO SETTER.GEOLOGICAL TECHNICAL OFFICER Work Phone: [facility] 06-11-2022 14:38-0400 Body weight 60.33 kg Patricia Older RUSTIC TERRAZZO SETTER.GEOLOGICAL TECHNICAL OFFICER Work Phone: [facility] 06-11-2022 14:38-0400 Diastolic blood pressure 76 mm[Hg] Patricia Older RUSTIC TERRAZZO SETTER.GEOLOGICAL TECHNICAL OFFICER Work Phone: [facility] 06-11-2022 14:38-0400 Heart rate 57 /min Patricia Older RUSTIC TERRAZZO SETTER.GEOLOGICAL TECHNICAL OFFICER Work Phone: [facility] 06-11-2022 14:38-0400 Respiratory rate 20 /min Patricia Older RUSTIC TERRAZZO SETTER.GEOLOGICAL TECHNICAL OFFICER Work Phone: [facility] 06-11-2022 14:38-0400 SaO2% (BldA) [Mass fraction] 100 % Patricia Older RUSTIC TERRAZZO SETTER.GEOLOGICAL TECHNICAL OFFICER Work Phone: [facility] 06-11-2022 14:38-0400 Systolic blood pressure 113 mm[Hg] Patricia Older RUSTIC TERRAZZO SETTER.GEOLOGICAL TECHNICAL OFFICER Work Phone: [facility] 04-11-2022 16:16-0500 Body temperature 97.2 [degF] Timmy Park MD Work Phone: [facility] 04-11-2022 16:16-0500 Body weight 58.06 kg Timmy Park MD Work Phone: [facility] 04-11-2022 16:16-0500 Diastolic blood pressure 60 mm[Hg] Timmy Park MD Work Phone: [facility] 04-11-2022 16:16-0500 Heart rate 67 /min Timmy Park MD Work Phone: [facility] 04-11-2022 16:16-0500 Respiratory rate 18 /min Timmy Park MD Work Phone: [facility] 04-11-2022 16:16-0500 SaO2% (BldA) [Mass fraction] 95 % Timmy Park MD Work Phone: [facility] 04-11-2022 16:16-0500 Systolic blood pressure 116 mm[Hg] Timmy Pakr MD Work Phone: [facility] 11-14-2021 16:19-0400 Body height 157.5 cm Mikhail Gallardo MD Work Phone: [facility] 11-14-2021 16:19-0400 Body weight 62.87 kg Mikhail Gallardo MD Work Phone: [facility] 11-14-2021 16:19-0400 Diastolic blood pressure 82 mm[Hg] Mikhail Gallardo MD Work Phone: [facility] 11-14-2021 16:19-0400 Heart rate 86 /min Mikhail Gallardo MD Work Phone: [facility] 11-14-2021 16:19-0400 SaO2% (BldA) [Mass fraction] 97 % Mikhail Gallardo MD Work Phone: [facility] 11-14-2021 16:19-0400 Systolic blood pressure 122 mm[Hg] Mikhail Gallardo MD Work Phone: [facility] 06-24-2021 13:56-0400 Diastolic blood pressure 68 mm[Hg] Patricia Older RUSTIC TERRAZZO SETTER.GEOLOGICAL TECHNICAL OFFICER Work Phone: [facility] 06-24-2021 13:56-0400 Heart rate 90 /min Patricia Older RUSTIC TERRAZZO SETTER.GEOLOGICAL TECHNICAL OFFICER Work Phone: [facility] 06-24-2021 13:56-0400 Respiratory rate 18 /min Patricia Older RUSTIC TERRAZZO SETTER.GEOLOGICAL TECHNICAL OFFICER Work Phone: [facility] 06-24-2021 13:56-0400 SaO2% (BldA) [Mass fraction] 98 % Patricia Older RUSTIC TERRAZZO SETTER.GEOLOGICAL TECHNICAL OFFICER Work Phone: [facility] 06-24-2021 13:56-0400 Systolic blood pressure 116 mm[Hg] Patricia Older RUSTIC TERRAZZO SETTER.GEOLOGICAL TECHNICAL OFFICER Work Phone: [facility] Encounters Encounter Date Encounter Type Care Provider Facility Start: 05-17-2023 End: 05-17-2023 Emergency department patient visit NONE PHYSICIAN Facility:B Start: 05-17-2023 End: 05-17-2023 Emergency department patient visit BRIANDA RAMIREZ MD [facility] Start: 05-07-2023 End: 05-07-2023 ambulatory Jennfier Gallardo RUSTIC TERRAZZO SETTER.GEOLOGICAL TECHNICAL OFFICER Work Phone: Neurology Procedures Date Procedure Procedure Detail Performing Clinician Start: 11-14-2021 Adult depression scr eening assessment Mikhail Gallardo MD Work Phone: Start: 06-08-2020 Adult depression scr eening assessment Timmy Park MD Work Phone: Start: 2019 Mammography Timmy Galvez MD Work Phone: Start: 09-14-2007 SURGICAL PATHOLOGY, CONVERTED Boris Mcmahon MD Work Phone: Start: 03-06-2007 SURGICAL PATHOLOGY, CONVERTED Robert Kenny MD Work Phone: Multiple face fractu res (disorder) BRIANDA RAMIREZ MD Plan of Treatment Date Care Activity Detail Author Start: 11-25-2032 Urine microalbumin profile DTa P,Tdap,Td Vaccine (5 - Td or Tdap) [facility] Start: 01-01-2029 Urine microalbumin profile [facility] Start: 12-18-2023 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 PCP Team 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 frank Disease Visit Annual PCP Team Chronic Disease Visit [facility] Start: 10-16-2023 ANNUAL PCP TEAM WEB PRESS OPERATOR FRANK DISEASE VISIT ANNUAL PCP TEAM CHRONIC DISEASE VISIT [facility] Start: 08-27-2023 ANNUAL PCP TEAM WEB PRESS OPERATOR FRANK DISEASE VISIT ANNUAL PCP TEAM CHRONIC DISEASE VISIT [facility] Start: 06-17-2023 ANNUAL PCP TEAM WEB PRESS OPERATOR FRANK DISEASE VISIT ANNUAL PCP TEAM CHRONIC DISEASE VISIT [facility] Start: 06-17-2023 HPV TESTING HPV TESTING [facility] Immunizations Immunization Date Immunization Notes Care Provider Fa cility 12-16-2019 influenza, injectabl e, quadrivalent, preservative free Timmy Park MD Work Phone: [facility] 12-16-2019 influenza, seasonal, injectable Timmy Park MD Work Phone: [facility] Work Phone: 12-16-2019 influenza virus vaccine, unspecified formulation Krystyna Simpson MD Work Phone: [facility] 01-07-2019 influenza, injectabl e, quadrivalent, contains preservative Timmy Park MD Work Phone: [facility] Work Phone: 01-01-2019 tetanus toxoid, redu maria g diphtheria toxoid, and acellular pertussis vaccine, adsorbed Timmy Park MD Work Phone: [facility] Work Phone: 01-13-2018 influenza, seasonal, injectable Timmy Park MD Work Phone: [facility] 12-28-2017 influenza, seasonal, injectable, preservative free Timmy Park MD Work Phone: [facility] 12-27-2017 influenza virus vaccine, unspecified formulation Timmy Park MD Work Phone: [facility] 12-20-2017 influenza, injectabl e, quadrivalent, preservative free Timmy Park MD Work Phone: [facility] 12-04-2016 influenza, injectabl e, quadrivalent, contains preservative Timmy Park MD Work Phone: [facility] 06-28-2016 tetanus toxoid, redu maria g diphtheria toxoid, and acellular pertussis vaccine, adsorbed Timmy Park MD Work Phone: [facility] Work Phone: 04-14-2016 influenza virus vaccine, unspecified formulation Timmy Park MD Work Phone: [facility] 04-14-2016 pneumococcal polysaccharide vaccine, 23 valent Timmy Park MD Work Phone: [facility] 03-31-2016 influenza, seasonal, injectable, preservative free Timmy Park MD Work Phone: [facility] 07-02-2014 tetanus toxoid, redu maria g diphtheria toxoid, and acellular pertussis vaccine, adsorbed Timmy Park MD Work Phone: [facility] Work Phone: 02-09-2006 influenza virus vaccine, unspecified formulation Timmy Park MD Work Phone: [facility] Work Phone: Payers Date Payer Category Payer Private Health Insurance [id number] 2022 Private Health Insurance [id number] 2021 Medicare AETNA MEDICARE A ETNA MEDICARE O [id number] 2021-Present [phone] [address] [place] [address] O [id number] 2021 Medicare [id number] 2018 Medicaid [facility] [id number] 2018-Present [phone] [address] [place] [address] Medicaid [id number] 2017 Unknown ANTHEM BLUE CROS S AND BLUE SHIELD ANTHEM MEDIBLUE O [id number] 2017-Present [phone] [address] [place] [address] O [id number] 2016 Unknown [id number] 2007 Medicaid [id number] 1976 Unknown [id number] 1976 Unknown [id number] 1976 Unknown [id number] 1976 Unknown [id number] 1976 Unknown [id number] 1976 Unknown [id number] Medicare [id number] Social History Date Type Detail Facility Start: 03-30-1998 End: 08-26-2022 Tobacco smoking status NHIS Smokes tobacco daily [facility] Start: 03-30-1998 History of tobacco use Cigarette Smo ker [facility] Start: 01-13-2014 End: 01-14-2023 Cigarettes smoked current (pack per day) - Reported 1 [facility] Start: 01-13-2014 End: 08-26-2022 Tobacco use and exposure User of smokeless tobacco [facility] History of tobacco use Chews Tobacco [facility] Start: 01-08-2021 End: 08-26-2022 Alcohol intake Current non-drinker of alcohol (finding) [facility] Start: 04-25-2021 End: 06-09-2022 History SDOH Alcohol Frequency 1 [facility] Start: 04-25-2021 History SDOH Alcohol Std Drinks 98 [facility] Start: 05-11-2019 History SDOH Alcohol Comment on probation. Recovering. [facility] Start: 04-25-2021 End: 06-09-2022 History SDOH Social Connections Phone 5 [facility] Start: 04-25-2021 End: 06-09-2022 History SDOH Social Connections Get Together 2 [facility] Start: 04-25-2021 End: 06-09-2022 History SDOH Social Connections Living 8 [facility] Start: 04-25-2021 End: 06-09-2022 History SDOH Physical Activity DPW 0 [facility] Start: 08-06-2019 Education 14 [facility] Start: 05-11-2019 End: 11-14-2021 Tobacco Comment 1/2 ppd currently [facility] Start: 1975 Sex Assigned At Not on file C [facility] Start: 06-03-2021 End: 01-01-2022 Exposure to SARS-CoV-2 (event) Not sure [facility] Work Phone: Start: 08-26-2022 Tobacco Comment 1/2 ppd curren tly, chews 2 pouches per week [facility] Start: 06-09-2022 End: 01-14-2023 Social connection and isolation panel [facility] Do you belong to any clubs or organizations such as rastafarian groups, unions, fraternal or athletic groups, or school groups? No [facility] Are you now , , , , never or living with a partner? Living with partner [facility] How often to you hav e a drink containing alcohol? Never [facility] How many standard dr inks containing alcohol do you have on a typical day? Patient does not drink [facility] How hard is it for y ou to pay for the very basics like food, housing, medical care, and heating Very hard [facility] Do you feel stress - tense, restless, nervous, or anxious, or unable to sleep at night because your mind is troubled all the time - these days [OSQ] Very much [facility] (I/We) worried jairo er (my/our) food would run out before (I/we) got money to buy more. Never true [facility] Tobacco smoking stat us NHIS Never smoked tobacco [facility] Start: 01-01-2023 Alcohol intake Current drinke r of alcohol (finding) [facility] Start: 05-15-2019 Tobacco smoking status Light t obacco smoker (finding) [facility] Sex Assigned At Female [facility] Medical Equipment Procedure Code Equipment Code Equipment Origin al Text Equipment Identifier Dates Start: 12-31-2020 End: 11-03-2022 Functional Status Date Assessment Result Facility 05-17-2023 Functional Status Independent [facility] Mental Status Date Assessment Result Facility 05-17-2023 Mental Status Orientation Oriented x 4 [facility] Clinical Notes 11-16-2015 to 05-20-2023 Patient InstructionsJennifer Gallardo APRN.GEOLOGICAL TECHNICAL OFFICER - 05/07/2023 3:01 PM ESTTelephone Encounter - Lora Middleton Ma - 01/22/2023 2:10 PM EDTTelephone Encounter - KaneLora trivedi Ma - 01/22/2023 2:04 PM EDT Note Date & Type Note Facility 05-20-2023 Note . MICRO - Microbiology PROCEDURE: Culture Wound Aerobic with Gram Stain [*1] SOURCE: Wound (surface) BODY SITE: Vaginal Wall COLLECTED DATE/TIME: 05/17/2023 16:39 EST RECEIVED DATE/TIME: 05/17/2023 18:06 EST START DATE/TIME: 05/17/2023 18:06 EST FREE TEXT SOURCE: FINAL REPORTS Final Report [] Verified Date/Time/Personnel: 05/20/2023 08:02 EST Normal Vaginal Megan: Present Neisseria gonorrhoeae: Negative PRELIMINARY REPORTS Preliminary Report [] Verified Date/Time/Personnel: 05/19/2023 07:45 EST Normal Vaginal Megan: Present Neisseria gonorrhoeae: Pending Preliminary Report [] Verified Date/Time/Personnel: 05/18/2023 09:13 EST Culture results pending. STAINS GS [] Verified Date/Time/Personnel: 05/17/2023 20:20 EST Rare Epithelial cells 4+ Polymorphonuclear cells 3+ Gram Positive Cocci Rare Gram Negative Rods Performing Locations *1: This test was performed at: [facility], [address] [place] [address], [id number] , [facility] ([place]) 05-17-2023 Hospital Discharge instructions Patient Education 05/17/2023 16:09:08 Abscess, Incision And Drainage Abscess (Incision & Drainage) An abscess is sometimes called a boil. It happens when bacteria get trapped under the skin and start to grow. Pus forms inside the abscess as the body responds to the bacteria. An abscess can happen with an insect bite, ingrown hair, blocked oil gland, pimple, cyst, or puncture wound. Your healthcare provider has drained the pus from your abscess. If the abscess pocket was large, your healthcare provider may have put in gauze packing. Your provider will need to remove it on your next visit. He or she may also replace it at that time. You may not need antibiotics to treat a simple abscess, unless the infection is spreading into the skin around the wound (cellulitis). The wound will take about 1 to 2 weeks to heal, depending on the size of the abscess. Healthy tissue will grow from the bottom and sides of the opening until it seals over. Home care These tips can help your wound heal: The wound may drain for the first 2 days. Cover the wound with a clean dry dressing. Change the dressing if it becomes soaked with blood or pus. If a gauze packing was placed inside the abscess pocket, you may be told to remove it yourself. You may do this in the shower. Once the packing is removed, you should wash the area in the shower, or clean the area as directed by your provider. Continue to do this until the skin opening has closed. Make sure you wash your hands after changing the packing or cleaning the wound. If you were prescribed antibiotics, take them as directed until they are all gone. You may use acetaminophen or ibuprofen to control pain, unless another pain medicine was prescribed. If you have liver disease or ever had a stomach ulcer, talk with your doctor before using these medicines. Follow-up care Follow up with your healthcare provider, or as advised. If a gauze packing was put in your wound, it should be removed in 1 to 2 days. Check your wound every day for any signs that the infection is getting worse. The signs are listed below. When to seek medical advice Call your healthcare provider right away if any of these occur: Increasing redness or swelling Red streaks in the skin leading away from the wound Increasing local pain or swelling Continued pus draining from the wound 2 days after treatment Fever of 100.4 F (38 C) or higher, or as directed by your healthcare provider Boil returns when you are at home [phone] [employer]. [address] [place] [id number]. All rights reserved. This information is not intended as a substitute for professional medical care. Always follow your healthcare professional's instructions. Follow Up Care 05/17/2023 14:51:22 With:Your [facility] doctor Address:Unknown When:2-4 days Comments:Schedule appointment as soon as possibleReturn to ED if symptoms worsenCall in a.m. to be seen for recheck packing removal and possible follow-up procedureFollow-up for culture resultsTake a probiotic daily while on antibioticsMay use Tylenol With:NONE PHYSICIAN Address:Unknown When:2-4 days [facility] 05-17-2023 Note Discharge Instructions Thank you for allowing [place] to assist you with your healthcare needs. The following is important discharge information regarding your hospital visit. Diagnosis from Today's Visit Abscess Abscess - simple What to Do Next Instructions from Your Care Team No qualifying data available. Post Acute Orders No qualifying data available. You Need to Schedule the Following Appointments Follow Up with Your [facility] doctor When Within 2-4 days Why: Schedule appointment as soon as possible Return to ED if symptoms worsen Call in a.m. to be seen for recheck packing removal and possible follow-up procedure Follow-up for culture results Take a probiotic daily while on antibiotics May use Tylenol Follow Up with NONE PHYSICIAN When Within 2-4 days Allergies Bee Stings (Edema) Cats (Sneezing (>3)) Pollen (sneezing and congestion) Dust (sneezing and runny nose) Naprosyn Robitussin Cough and Cold amoxicillin Medications Please ask your primary doctor or pharmacist before taking any other medication not listed, including over the counter drugs, herbal medications, vitamins and or supplements as they may interact with your home medications. What How Much When Instructions Last Dose New doxycycline (doxycycline hyclate 100 mg oral tablet) 1 tab(s) by mouth Two (2) times a day Duration: 10 Days Printed Prescription New sulfamethoxazole-trimethoprim (Bactrim DS 800 mg-160 mg oral tablet) 1 tab(s) by mouth Every 12 hours Duration: 10 Days Printed Prescription Unchanged albuterol (Ventolin HFA MDI (90 mcg/ inh) inhalation aerosol) 2 puff(s) by inhalation Every 6 hours as needed for for wheezing Unchanged albuterol-ipratropium (DuoNeb 0.5 mg-2.5 mg/ 3 mL inhalation solution) 3 Milliliter by inhalation Four (4) times a day Unchanged benzonatate (benzonatate 100 mg oral capsule) 1 cap by mouth Three (3) times a day as needed for as needed for cough Duration: 10 Days Unchanged cetirizine (cetirizine 10 mg oral tablet (NF)) 1 tab(s) by mouth Once a day Unchanged clindamycin 300 Milligram by mouth Every 6 hours Duration: 7 Days Unchanged escitalopram (Lexapro 10 mg oral tablet) 1 tab(s) by mouth Once a day Unchanged famotidine (famotidine 20 mg oral tablet) 1 tab(s) by mouth Two (2) times a day Unchanged furosemide (Lasix 20 mg oral tablet) 1 tab(s) by mouth Every day Duration: 14 Days Unchanged gabapentin (Neurontin) 300 Milligram by mouth Two (2) times a day Unchanged ibuprofen (ibuprofen 800 mg oral tablet) 1 tab(s) by mouth Every 8 hours as needed for as needed for pain Unchanged loperamide (loperamide 2 mg oral tablet) 1 tab(s) by mouth Once a day as needed for abdominal discomfort Unchanged meloxicam (meloxicam 15 mg oral tablet) 1 tab(s) by mouth Once a day Unchanged nabumetone (Relafen 750 mg oral tablet) 2 tab(s) by mouth Once a day with a meal Duration: 7 Days Unchanged ondansetron (Zofran 4 mg oral tablet) 1 tab(s) by mouth Every 6 hours as needed for Nausea/Vomiting Unchanged orphenadrine (orphenadrine extended release) 100 Milligram by mouth Two (2) times a day Unchanged predniSONE (predniSONE 20 mg oral tablet) 1 tab(s) by mouth Two (2) times a day Unchanged ranitidine (Zantac 150 mg oral tablet (NF)) 0.5 tab(s) by mouth Two (2) times a day Unchanged tiZANidine (Zanaflex 4 mg oral capsule) 1 cap by mouth Every 8 hours as needed for for muscle spasm Duration: 7 Days Please take this list to your next doctor s visit. Bring all medications you take, including over the counter medications, herbals and other supplements with you to your doctor s visit. Patients and families are reminded to discard old lists and to update any records with all medication providers or retail pharmacies. Medication Leaflets doxycycline (oral/injection) (DOX i HUGO ortiz) Acticlate, Adoxa, Alodox, Avidoxy, Doryx, Doryx MPC, Lymepak, Mondoxyne NL, Monodox, Morgidox, Morgidox 8e409mg, Morgidox [id number], [place]bo, Oracea, Targadox, Vibramycin, Vibramycin Monohydrate What is the most important information I should know about doxycycline? You should not take this medicine if you are allergic to any tetracycline antibiotic. Children younger than 8 years old should use doxycycline only in cases of severe or life-threatening conditions. This medicine can cause permanent yellowing or graying of the teeth in children Using doxycycline during could harm the unborn baby or cause permanent tooth discoloration later in the baby's life. What is doxycycline? Doxycycline is a tetracycline antibiotic that Doxycycline is used to treat many different bacterial infections, such as acne, urinary tract infections, intestinal infections, eye infections, gonorrhea, chlamydia, periodontitis (gum disease), and others. Doxycycline is also used to treat blemishes, bumps, and acne-like lesions caused by rosacea. Doxycycline will not treat facial redness caused by rosacea. Some forms of doxycycline are used to prevent malaria, to treat anthrax, or to treat infections caused by mites, ticks, or lice. Doxycycline may also be used for purposes not listed in this medication guide. What should I discuss with my healthcare provider before taking doxycycline? You should not take this medicine if you are allergic to doxycycline or other tetracycline antibiotics such as demeclocycline, minocycline, tetracycline, or tigecycline. Tell your doctor if you have ever had: liver disease; kidney disease; asthma or sulfite allergy; increased pressure inside your skull; or if you also take isotretinoin, seizure medicine, or a blood thinner such as warfarin (Coumadin). If you are using doxycycline to treat gonorrhea, your doctor may test you to make sure you do not also have syphilis, another sexually transmitted disease. Taking this medicine during may affect tooth and bone development in the unborn baby. Taking doxycycline during the last half of can cause permanent tooth discoloration later in the baby's life. Tell your doctor if you are or if you become . Doxycycline can make control pills less effective. Ask your doctor about using a non-hormonal control (condom, diaphragm with spermicide) to prevent . Doxycycline can pass into breast milk and may affect bone and tooth development in a nursing . Do not breastfeed while you are taking doxycycline. Doxycycline can cause permanent yellowing or graying of the teeth in children younger than 8 years old. Children should use doxycycline only in cases of severe or life-threatening conditions such as anthrax or [place] spotted fever. The benefit of treating a serious condition may outweigh any risks to the child's tooth development. How should I take doxycycline? Follow all directions on your prescription label and read all medication guides or instruction sheets. Use the medicine exactly as directed. Take doxycycline with a full glass of water. Drink plenty of liquids while you are taking doxycycline. Read and carefully follow any Instructions for Use provided with your medicine. Ask your doctor or pharmacist if you do not understand these instructions. Most brands of doxycyline may be taken with food or milk if the medicine upsets your stomach. Different brands of doxycycline may have different instructions about taking them with or without food. Take Oracea on an empty stomach, at least 1 hour before or 2 hours after a meal. You may need to split a doxycycline tablet to get the correct dose. Follow your doctor's instructions. Swallow a delayed-release capsule or tablet whole. Do not crush, chew, break, or open it. Measure liquid medicine with the dosing syringe provided, or with a special dose-measuring spoon or medicine cup. If you do not have a dose-measuring device, ask your pharmacist for one. If you take doxycycline to prevent malaria: Start taking the medicine 1 or 2 days before entering an area where malaria is common. Continue taking the medicine every day during your stay and for at least 4 weeks after you leave the area. Doxycycline is usually given by injection only if you are unable to take the medicine by mouth. A healthcare provider will give you this injection as an infusion into a vein. Use this medicine for the full prescribed length of time, even if your symptoms quickly improve. Skipping doses can increase your risk of infection that is resistant to medication. Doxycycline will not treat a viral infection such as the flu or a common cold. Store at room temperature away from moisture, heat, and light. Throw away any unused medicine after the expiration date on the label has passed. Using doxycycline can cause damage to your kidneys. What happens if I miss a dose? Take the medicine as soon as you can, but skip the missed dose if it is almost time for your next dose. Do not take two doses at one time. What happens if I overdose? Seek emergency medical attention or call the Poison Help line at . What should I avoid while taking doxycycline? Do not take iron supplements, multivitamins, calcium supplements, antacids, or laxatives within 2 hours before or after taking doxycycline. Avoid taking any other antibiotics with doxycycline unless your doctor has told you to. Doxycycline could make you sunburn more easily. Avoid sunlight or tanning beds. Wear protective clothing and use sunscreen (SPF 30 or higher) when you are outdoors. Antibiotic medicines can cause diarrhea, which may be a sign of a new infection. If you have diarrhea that is watery or bloody, call your doctor. Do not use anti-diarrhea medicine unless your doctor tells you to. What are the possible side effects of doxycycline? Get emergency medical help if you have signs of an allergic reaction (hives, difficult breathing, swelling in your face or throat) or a severe skin reaction (fever, sore throat, burning in your eyes, skin pain, red or purple skin rash that spreads and causes blistering and peeling). Seek medical treatment if you have a serious drug reaction that can affect many parts of your body. Symptoms may include: skin rash, fever, swollen glands, flu-like symptoms, muscle aches, severe weakness, unusual bruising, or yellowing of your skin or eyes. This reaction may occur several weeks after you began using doxycycline. Call your doctor at once if you have: severe stomach pain, diarrhea that is watery or bloody; throat irritation, trouble swallowing; chest pain, irregular heart rhythm, feeling short of breath; little or no urination; low white blood cell counts--fever, chills, swollen glands, body aches, weakness, pale skin, easy bruising or bleeding; increased pressure inside the skull--severe headaches, ringing in your ears, dizziness, nausea, vision problems, pain behind your eyes; or signs of liver or pancreas problems--loss of appetite, upper stomach pain (that may spread to your back), tiredness, nausea or vomiting, fast heart rate, dark urine, jaundice (yellowing of the skin or eyes). Common side effects may include: nausea, vomiting, upset stomach, loss of appetite; mild diarrhea; skin rash or itching; darkened skin color; or vaginal itching or discharge. This is not a complete list of side effects and others may occur. Call your doctor for medical advice about side effects. You may report side effects to FDA at 4-172-BPR-1924. What other drugs will affect doxycycline? Sometimes it is not safe to use certain medications at the same time. Some drugs can affect your blood levels of other drugs you take, which may increase side effects or make the medications less effective. Other drugs may affect doxycycline, including prescription and dthh-egb-mkjidnu medicines, vitamins, and herbal products. Tell your doctor about all your current medicines and any medicine you start or stop using. Where can I get more information? Your pharmacist can provide more information about doxycycline. Remember, keep this and all other medicines out of the reach of children, never share your medicines with others, and use this medication only for the indication prescribed. Every effort has been made to ensure that the information provided by [employer]. ('[employer]') is accurate, up-to-date, and complete, but no guarantee is made to that effect. Drug information contained herein may be time sensitive. [employer] information has been compiled for use by healthcare practitioners and consumers in the [place] and therefore [employer] does not warrant that uses outside of the [place] are appropriate, unless specifically indicated otherwise. [employer] drug information does not endorse drugs, diagnose patients or recommend therapy. [employer] drug information is an informational resource designed to assist licensed healthcare practitioners in caring for their patients and/or to serve consumers viewing this service as a supplement to, and not a substitute for, the expertise, skill, knowledge and judgment of healthcare practitioners. The absence of a warning for a given drug or drug combination in no way should be construed to indicate that the drug or drug combination is safe, effective or appropriate for any given patient. [employer] does not assume any responsibility for any aspect of healthcare administered with the aid of information [employer] provides. The information contained herein is not intended to cover all possible uses, directions, precautions, warnings, drug interactions, allergic reactions, or adverse effects. If you have questions about the drugs you are taking, check with your doctor, nurse or pharmacist. Copyright 6922-5653 [employer]. Version: 25.. Revision Date: 12/03/2022. sulfamethoxazole and trimethoprim (oral/injection) (SUL fa meth OX a zole and trye METH oh prim) Bactrim, Bactrim DS, Sulfatrim Pediatric What is the most important information I should know about sulfamethoxazole and trimethoprim? Use only as directed. Tell your doctor if you use other medicines or have other medical conditions or allergies. What is sulfamethoxazole and trimethoprim? Sulfamethoxazole and trimethoprim is a combination antibiotic used to treat ear infections, urinary tract infections, bronchitis, traveler's diarrhea, shigellosis, and Pneumocystis jiroveci pneumonia. Sulfamethoxazole and trimethoprim may also be used for purposes not listed in this medication guide. What should I discuss with my healthcare provider before using sulfamethoxazole and trimethoprim? You should not use this medicine if you are allergic to sulfamethoxazole or trimethoprim, or if you have: severe liver disease; kidney disease that is not being treated or monitored; anemia (low red blood cells) caused by folic acid deficiency; a history of low blood platelets after taking trimethoprim or any sulfa drug; or if you take dofetilide. May cause defects. Do not use if you are . Tell your doctor if you become . Do not breastfeed. This medicine should not be given to a child younger than 2 months old. Tell your doctor if you have ever had: kidney or liver disease; a folate (folic acid) deficiency; asthma or severe allergies; HIV or AIDS; a thyroid disorder; malnourishment; alcoholism; an electrolyte imbalance (such as low blood sodium or high potassium); porphyria, or azsguso-5-sobphtyvx dehydrogenase (G6PD) deficiency; or if you use a blood thinner (such as warfarin) and you have routine 'INR' or prothrombin time tests. How should I use sulfamethoxazole and trimethoprim? Follow all directions on your prescription label and read all medication guides or instruction sheets. Use the medicine exactly as directed. Sulfamethoxazole and trimethoprim oral is taken by mouth. Shake the oral suspension (liquid). Measure a dose with the supplied measuring device (not a kitchen spoon). Sulfamethoxazole and trimethoprim injection is given in a vein. Be sure you understand how to properly mix this medicine with a liquid (diluent) and how to store the mixture. Ask your doctor or pharmacist if you don't understand how to use an injection. Prepare an injection only when you are ready to give it. Call your pharmacist if the medicine looks cloudy, has changed colors, or has particles in it. Mixed medicine must be used within 2 to 6 hours depending on the amount of diluent in the mixture. Follow your doctor's instructions. Do not refrigerate mixed medicine. Do not reuse a needle or syringe. Place them in a puncture-proof 'sharps' container and dispose of it following state or local laws. Keep out of the reach of children and pets. Drink plenty of fluids to prevent kidney stones. Antibiotic medicines can cause diarrhea. Tell your doctor if you have diarrhea that is watery or bloody. Keep using this medicine even if your symptoms quickly improve. Skipping doses could make your infection resistant to medication. Sulfamethoxazole and trimethoprim will not treat a viral infection (flu or a common cold). You may need blood and urine tests, and this medicine may be stopped based on the results. Store at room temperature away from moisture, heat, and light. Do not refrigerate. What happens if I miss a dose? Use the medicine as soon as you can, but skip the missed dose if it is almost time for your next dose. Do not use two doses at one time. What happens if I overdose? Seek emergency medical attention or call the Poison Help line at . Overdose symptoms may include loss of appetite, vomiting, fever, blood in your urine, yellowing of your skin or eyes, confusion, or loss of consciousness. What should I avoid while using sulfamethoxazole and trimethoprim? If you use the injection form of this medicine, do not eat or drink anything that contains propylene glycol (an ingredient in many processed foods, soft drinks, and medicines). Dangerous effects could occur. Sulfamethoxazole and trimethoprim could make you sunburn more easily. Avoid sunlight or tanning beds. Wear protective clothing and use sunscreen (SPF 30 or higher) when you are outdoors. What are the possible side effects of sulfamethoxazole and trimethoprim? Get emergency medical help if you have signs of an allergic reaction (hives, cough, chest pain, shortness of breath, swelling in your face or throat) or a severe skin reaction (fever, sore throat, burning eyes, skin pain, red or purple skin rash with blistering and peeling). Seek medical treatment if you have a serious drug reaction that can affect many parts of your body. Symptoms may include: skin rash, fever, swollen glands, joint pain, muscle aches, severe weakness, pale skin, unusual bruising, or yellowing of your skin or eyes. Call your doctor at once if you have: severe stomach pain, diarrhea that is watery or bloody (even if it occurs months after your last dose); any skin rash, no matter how mild; yellowing of your skin or eyes; a seizure; new or unusual joint pain; increased or decreased urination; swelling, bruising, or irritation around the IV needle; increased thirst, dry mouth, fruity breath odor; new or worsening cough, fever, trouble breathing; high blood potassium--nausea, weakness, tingly feeling, chest pain, irregular heartbeats, loss of movement; low blood sodium--headache, confusion, problems with thinking or memory, weakness, feeling unsteady; or low blood cell counts--fever, chills, mouth sores, skin sores, easy bruising, unusual bleeding, pale skin, cold hands and feet, feeling light-headed or short of breath. Common side effects may include: nausea, vomiting, loss of appetite; or skin rash. This is not a complete list of side effects and others may occur. Call your doctor for medical advice about side effects. You may report side effects to FDA at 4-140-WWO-9608. What other drugs will affect sulfamethoxazole and trimethoprim? You may need more frequent check-ups or medical tests if you also use medicine to treat depression, diabetes, seizures, or HIV. Tell your doctor about all your current medicines. Many drugs can affect sulfamethoxazole and trimethoprim, especially: amantadine, digoxin, cyclosporine, indomethacin, leucovorin, methotrexate, procainamide, pyrimethamine; an 'LISETTE inhibitor' heart or blood presure medication (benazepril, enalapril, lisinopril, quinapril, ramipril, and others); or a diuretic or 'water pill'. This list is not complete and many other drugs may affect sulfamethoxazole and trimethoprim. This includes prescription and [id number] medicines, vitamins, and herbal products. Not all possible drug interactions are listed here. Where can I get more information? Your pharmacist can provide more information about sulfamethoxazole and trimethoprim. Remember, keep this and all other medicines out of the reach of children, never share your medicines with others, and use this medication only for the indication prescribed. Every effort has been made to ensure that the information provided by [employer]. ('[employer]') is accurate, up-to-date, and complete, but no guarantee is made to that effect. Drug information contained herein may be time sensitive. [employer] information has been compiled for use by healthcare practitioners and consumers in the [place] and therefore [employer] does not warrant that uses outside of the [place] are appropriate, unless specifically indicated otherwise. [employer] drug information does not endorse drugs, diagnose patients or recommend therapy. [employer] drug information is an informational resource designed to assist licensed healthcare practitioners in caring for their patients and/or to serve consumers viewing this service as a supplement to, and not a substitute for, the expertise, skill, knowledge and judgment of healthcare practitioners. The absence of a warning for a given drug or drug combination in no way should be construed to indicate that the drug or drug combination is safe, effective or appropriate for any given patient. [employer] does not assume any responsibility for any aspect of healthcare administered with the aid of information [employer] provides. The information contained herein is not intended to cover all possible uses, directions, precautions, warnings, drug interactions, allergic reactions, or adverse effects. If you have questions about the drugs you are taking, check with your doctor, nurse or pharmacist. Copyright 4083-7197 [employer]. Version: 13.. Revision Date: 10/30/2022. Education Materials Abscess (Incision & Drainage) An abscess is sometimes called a boil. It happens when bacteria get trapped under the skin and start to grow. Pus forms inside the abscess as the body responds to the bacteria. An abscess can happen with an insect bite, ingrown hair, blocked oil gland, pimple, cyst, or puncture wound. Your healthcare provider has drained the pus from your abscess. If the abscess pocket was large, your healthcare provider may have put in gauze packing. Your provider will need to remove it on your next visit. He or she may also replace it at that time. You may not need antibiotics to treat a simple abscess, unless the infection is spreading into the skin around the wound (cellulitis). The wound will take about 1 to 2 weeks to heal, depending on the size of the abscess. Healthy tissue will grow from the bottom and sides of the opening until it seals over. Home care These tips can help your wound heal: The wound may drain for the first 2 days. Cover the wound with a clean dry dressing. Change the dressing if it becomes soaked with blood or pus. If a gauze packing was placed inside the abscess pocket, you may be told to remove it yourself. You may do this in the shower. Once the packing is removed, you should wash the area in the shower, or clean the area as directed by your provider. Continue to do this until the skin opening has closed. Make sure you wash your hands after changing the packing or cleaning the wound. If you were prescribed antibiotics, take them as directed until they are all gone. You may use acetaminophen or ibuprofen to control pain, unless another pain medicine was prescribed. If you have liver disease or ever had a stomach ulcer, talk with your doctor before using these medicines. Follow-up care Follow up with your healthcare provider, or as advised. If a gauze packing was put in your wound, it should be removed in 1 to 2 days. Check your wound every day for any signs that the infection is getting worse. The signs are listed below. When to seek medical advice Call your healthcare provider right away if any of these occur: Increasing redness or swelling Red streaks in the skin leading away from the wound Increasing local pain or swelling Continued pus draining from the wound 2 days after treatment Fever of 100.4 F (38 C) or higher, or as directed by your healthcare provider Boil returns when you are at home 9900-4473 [employer]. [address] [place] [address]. All rights reserved. This information is not intended as a substitute for professional medical care. Always follow your healthcare professional's instructions. Additional Information VACCINATE! IT SAVES LIVES! Members of the community who have not yet received the COVID-19 vaccine and would like to receive it can visit one of [facility] vaccine clinics. There are many vaccine clinic locations within the [facility]. For locations and available times, please visit [email or web address] It is important to note that some COVID mobile vaccine clinics are held outdoors and may be canceled in rainy or stormy conditions. To learn more about pediatric vaccinations (ages 5-11), we invite you to visit the [facility] webpage. [email or web address] To learn more about the COVID-19 vaccine, we invite you to visit the CDC website for a list of frequently asked questions. https://www.cdc.gov/coronavirus/2 019-ncov/vaccines/faq.html [facility] Patient Portal Access Instructions: Stay connected with your healthcare team and access your personal medical information anytime with the [facility] Patient Portal. If you would like a full copy of your medical records please contact the [facility] Medical Records Department Thursday through Thursday between 8a.m. and 4:30p.m. Please follow the directions below to access the portal: 1.Access the email account you provided upon registration to the [facility].2.Look for an invitation email from [facility].3.Open the email and access the invitation link: Accept Invitation to [facility]4.Fill in the required singh to create your account. Sign into [email or web address] with your username and password that you created in the above steps to stay up to date. You can then view a summary of results, a summary of your visits, and the ability to download your summaries to your computer or send the information securely to a physician. Remember that your healthcare information is confidential, so carefully consider who you will allow to register on the [facility] Patient Portal for access to your information. You can also access the [facility] Patient Portal on the [employer]. Simply click on Health Records under Health Data and then click on the [employer] logo. HOW TO SAFELY DISPOSE OF PRESCRIPTION MEDICATIONS Please use one of the following methods to safely dispose of your unused medications. 1.Use a drug disposal kit: the drug disposal pouch allows you to safely discard your old and unused drugs. Ask your nurse to give you one when you are discharged.2.Visit a local take-back location: Many local pharmacies and police departments have programs that collect old and unwanted prescription drugs. Call your local pharmacy or go to http://bit.TotalHousehold/4X0Fl9a to find one close to you.3.Make use of household items: Use cat litter or old coffee grounds to dispose medications if other options are not available. Mix your drugs with these household products, seal them in an airtight container and throw it into the garbage. Call [facility]: [phone] to be sure your drugs can be disposed of in this way. Some medicines may require a different approach.4.Never flush your medications down the toilet. IF YOU HAVE BEEN PRESCRIBED AN OPIOIDS FOR PAIN If you have been prescribed an opioid (such as hydrocodone, oxycodone or morphine), it is critical to understand the possible side effects and risks of opioid pain medications. Even when taken as directed, opioids can have several side effects including: Tolerance, meaning you might need to take more of a medication for the same pain relief. Nausea, vomiting and/or constipation. Sleepiness, dizziness, dry mouth, confusion, depression or itching. Physical dependence, meaning you have withdrawal symptoms when a medication is stopped ? this can develop within a few days. KNOW YOUR RESPONSIBILITIES It is important to know exactly how much and how often to take the opioid pain medications you are prescribed. Never take opioids in higher amounts or more often than prescribed. Do not combine opioids with alcohol or other drugs that cause drowsiness, such as benzodiazepines, also known as benzos, including diazepam and alprazolam, muscle relaxants or sleep aids. Never sell or share prescription opioids. This is illegal. Store opioids in a secure place and out of reach of others (including children, family, friends and visitors). The last page(s) of this document has been signed and retained as a CHART COPY Signatures Patient Education Materials Abscess, Incision And Drainage Medication Leaflets doxycycline (oral/injection), sulfamethoxazole and trimethoprim (oral/injection) My discharge plan and instructions have been reviewed and explained to me and IRUKHSANA SUSAN K understand my current condition and have read and understand these discharge instructions. I have received a written copy of the plan/instructions. If I have questions, I am aware that I should contact my doctor. 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 Author Type: Nurse Practitioner Type: Progress Notes Filed: 05/08/2023 20:59 Note Text: [facility] - FOLLOW UP EVALUATION I had the pleasure of seeing Ms. Milian for follow-up today. She is a 47 year old left-handed female with a history of tremor since 2019. She also has restless leg syndrome. She is seen alone. We had a visit using: [employer] I have communicated my name and active licensure. The patient's identity and physical location were verified at the time of this visit. Either the patient or their legal screening representative has been informed of the risks and benefits of -- and alternatives to -- treatment through a remote evaluation and consents to proceed with the evaluation remotely. Subjective Previous Plan-10/22/2022 Visit: Tremor: Continue primidone (50mg four tablets [...] you work through coping with your problems Interval History: Tremor has been acting up. She is still getting harassed by her ex so she said she has been stressed. Restless leg syndrome has also been flaring up. It is mostly at night but can be during the day as well. Movement Disorders Medications Schedule - as of the start of the visit: Medications Morning Afternoon Bedtime Primidone 50mg 4 Pramipexole 0.50mg for RLS 1 Baclofen 10mg as needed /2-1 2-1 03/31- Questionnaires: In addition, the following activities of daily living that may be affected by tremors were evaluated: Speaking: Affected (mild constant) Feeding: Affected (marked) Bringing Liquids to Mouth: Affected (marked) Hygiene: Affected (marked) Dressing: Affected (marked) Writing: Affected (marked) Working: Affected (marked) Number of falls in the Last Month: 0 In addition, the following areas that may be affected by abnormal involuntary movements were evaluated: Daily activities Difficulties with eating: Yes (slight) Difficulties in dressing: Yes (mild) Difficulties with hygiene activities: Yes (mild) Difficulties with handwritin (none) Difficulties with doing hobbies and other activities: Yes (mild) Difficulties turning in bed: Yes (mild) Difficulties getting out of bed, car or chair: Yes (mild) Tremors/Gait/Balance Shaking or tremors: Yes (mild) Walking and balance problems: Yes (mild) Number of falls in the Last Month: 0 Gait freezing: Yes (slight) Autonomic/Pain Lightheadeness on standing: Yes (mild) Urinary problems: 0 (none) Constipation problems: 0 (none) Pain and other sensations: Yes (moderate) Speech/Swallowing Speech problems: Yes (slight) Drooling: Yes (mild) Chewing and swallowing problems: Yes (slight) Sleep/Fatigue Sleep problems: Yes (moderate) Daytime sleepiness: Yes (mild) Fatigue: Yes (mild) Mood/Behavior Depression: PHQ-9 Score: 10 usually representing moderate (10-14) depression. Anxiety: MESSI-7 Total Score: 8 usually representing mild (5-9) anxiety. Finally, the following table shows the patient's overall global physical and mental health using the PROMIS scale: PROMIS-10 Flowsheet Row [facility] from 05/07/2023 in Neurology Appointment from 01/29/2023 in Family Medicine Ora Global Physical Health T Score 19.9 23.5 Global Mental Health T Score 43.5 50.8 0-10 Standard Pain Scale 1 1 *PROMIS-10 scoring scale: mean = 50, over 50 is above average, under 50 is below average ALLERGIES Allergen Reactions Aloe Vera GI Upset Menthol GI Upset Vitamin E Vomiting Amoxicillin GI Upset GI upset Atorvastatin GI Upset Bee Venom Protein (* Anaphylaxis Cats Unknown Corticotropin GI Upset Dust nasal drainage Dust Mites nasal drainage Flexeril [Cyclobenz* Vomiting Guaifenesin GI Upset Mold Itching Naproxen GI Upset, Other: See Comments spotting Pollen nasal drainage Pollen Extracts Itching Robitussin Dm [Dex* GI Upset Sulfa (Sulfonamide * Vomiting Current Outpatient Medications Medication Sig acetaminophen 650 mg CR tablet 650 mg. albuterol HFA (PROAIR HFA) 90 mcg/actuation inhaler Inhale 2 Puffs as instructed every 4 hours as needed. alcohol swabs Apply 1 application to affected area four times daily. ondansetron (ZOFRAN) 4 mg tablet Take 1 tablet by mouth every 8 hours as needed. furosemide (LASIX) 40 mg tablet Take 1 tablet by mouth once daily. escitalopram oxalate (LEXAPRO) 20 mg tablet Take 1 tablet by mouth once daily. evolocumab (REPATHA SURECLICK) 140 mg/mL pen injector Inject 140 mg subcutaneously every 2 weeks. glimepiride (AMARYL) 2 mg (more content not included)... [facility] 05-07-2023 Instructions Jennifer Gallardo APRN.CNP - 05/07/2023 3:35 PM EST It was a pleasure to see you today. We addressed the following diagnoses: Essential tremor (primary encounter diagnosis) Restless legs syndrome My recommendations are as follows: Movement Disorders Medication Schedule: Medications Morning Afternoon Bedtime Primidone 250mg 1 Pramipexole 0.50mg for RLS 1.5 Baclofen 10mg as needed /2-1 1/2-1 2-1 Return at or around: 11/05/23 If there are any concerns before your next visit, please call or you can send a message through [employer]. You can also now schedule and select appointments through [employer]. Jennifer Gallardo APRN.KO documented in this encounter [facility] 05-07-2023 History of Present illness Narrative [facility] - FOLLOW UP EVALUATION I had the pleasure of seeing Ms. Milian for follow-up today. She is a 47 year old left-handed female with a history of tremor since 2019. She also has restless leg syndrome. She is seen alone. We had a visit using: [employer] I have communicated my name and active licensure. The patient's identity and physical location were verified at the time of this visit. Either the patient or their legal screening representative has been informed of the risks and benefits of -- and alternatives to -- treatment through a remote evaluation and consents to proceed with the evaluation remotely. Subjective Previous Plan-10/22/2022 Visit: Tremor: Continue primidone (50mg four tablets [...] you work through coping with your problems Interval History: Tremor has been acting up. She is still getting harassed by her ex so she said she has been stressed. Restless leg syndrome has also been flaring up. It is mostly at night but can be during the day as well. Movement Disorders Medications Schedule - as of the start of the visit: Medications Morning Afternoon Bedtime Primidone 50mg 4 Pramipexole 0.50mg for RLS 1 Baclofen 10mg as needed /2-1 2-1 03/31-1 Questionnaires: In addition, the following activities of daily living that may be affected by tremors were evaluated: Speaking: Affected (mild constant) Feeding: Affected (marked) Bringing Liquids to Mouth: Affected (marked) Hygiene: Affected (marked) Dressing: Affected (marked) Writing: Affected (marked) Working: Affected (marked) Number of falls in the Last Month: 0 In addition, the following areas that may be affected by abnormal involuntary movements were evaluated: Daily activities Difficulties with eating: Yes (slight) Difficulties in dressing: Yes (mild) Difficulties with hygiene activities: Yes (mild) Difficulties with handwritin (none) Difficulties with doing hobbies and other activities: Yes (mild) Difficulties turning in bed: Yes (mild) Difficulties getting out of bed, car or chair: Yes (mild) Tremors/Gait/Balance Shaking or tremors: Yes (mild) Walking and balance problems: Yes (mild) Number of falls in the Last Month: 0 Gait freezing: Yes (slight) Autonomic/Pain Lightheadeness on standing: Yes (mild) Urinary problems: 0 (none) Constipation problems: 0 (none) Pain and other sensations: Yes (moderate) Speech/Swallowing Speech problems: Yes (slight) Drooling: Yes (mild) Chewing and swallowing problems: Yes (slight) Sleep/Fatigue Sleep problems: Yes (moderate) Daytime sleepiness: Yes (mild) Fatigue: Yes (mild) Mood/Behavior Depression: PHQ-9 Score: 10 usually representing moderate (10-14) depression. Anxiety: MESSI-7 Total Score: 8 usually representing mild (5-9) anxiety. Finally, the following table shows the patient's overall global physical and mental health using the PROMIS scale: PROMIS-10 Flowsheet Row [facility] from 05/07/2023 in Neurology Appointment from 01/29/2023 in Family Medicine Rachana Global Physical Health T Score 19.9 23.5 Global Mental Health T Score 43.5 50.8 0-10 Standard Pain Scale 1 1 *PROMIS-10 scoring scale: mean = 50, over 50 is above average, under 50 is below average ALLERGIES Allergen Reactions Aloe Vera GI Upset Menthol GI Upset Vitamin E Vomiting Amoxicillin GI Upset GI upset Atorvastatin GI Upset Bee Venom Protein (* Anaphylaxis Cats Unknown Corticotropin GI Upset Dust nasal drainage Dust Mites nasal drainage Flexeril [Cyclobenz* Vomiting Guaifenesin GI Upset Mold Itching Naproxen GI Upset, Other: See Comments spotting Pollen nasal drainage Pollen Extracts Itching Robitussin Dm [Dex* GI Upset Sulfa (Sulfonamide * Vomiting Current Outpatient Medications Medication Sig acetaminophen 650 mg CR tablet 650 mg. albuterol HFA (PROAIR HFA) 90 mcg/actuation inhaler Inhale 2 Puffs as instructed every 4 hours as needed. alcohol swabs Apply 1 application to affected area four times daily. ondansetron (ZOFRAN) 4 mg tablet Take 1 tablet by mouth every 8 hours as needed. furosemide (LASIX) 40 mg tablet Take 1 tablet by mouth once daily. escitalopram oxalate (LEXAPRO) 20 mg tablet Take 1 tablet by mouth once daily. evolocumab (REPATHA SURECLICK) 140 mg/mL pen injector Inject 140 mg subcutaneously every 2 weeks. glimepiride (AMARYL) 2 mg tablet take 1 tablet by mouth EVERY MORNING WITH BREAKFAST blood sugar diagnostic (BLOOD GLUCOSE TEST) test [...] (anxiety.). Taking 1 tablet PO before bed (Patient taking differently: Take 5 mg by mouth daily at bedtime. Taking 1 tablet PO before bed) pantoprazole DR (PROTONIX) 40 mg tablet Take 1 tablet by mouth daily before breakfast. Take on empty stomach, 1/2 hr before meal. baclofen (LIORESAL) 10 mg tablet Take 1/2-1 tablet three times daily as directed ipratropium-albuterol (DUONEB) 0.5 mg-3 mg(2.5 mg base)/3 mL nebu Inhale 3 mL as instructed every 6 hours as needed for wheezing/shortness of breath. EPINEPHrine (EPIPEN) 0.3 mg/0.3 mL auto-injector Inject 0.3 mL intramuscularly as needed (For allergic reaction). DUPIXENT PEN 300 mg/2 mL pen lancets (ONE TOUCH [employer]) 33 gauge Test blood sugar(s) 4 daily. Dx: Type 2 DM - Controlled E11.9 Insulin: No levonorgestrel (MIRENA) 20 mcg/24 hr (5 years) IUD Inserted in office atorvastatin (LIPITOR) 40 mg tablet Take 40 mg by mouth daily at bedtime. famotidine (PEPCID) 20 mg tablet Take 20 mg by mouth daily at bedtime. gabapentin (NEURONTIN) 300 mg capsule TAKE ONE CAPSULE BY MOUTH 3 TIMES A DAY FOR NERVE PAIN loperamide (IMODIUM) 2 mg cap(s) TAKE ONE CAPSULE EVERY 8 HOURS NEEDED FOR LOOSE STOOL primidone (MYSOLINE) 250 mg tablet Take 1 tablet by mouth daily at bedtime. pramipexole (MIRAPEX) 0.5 mg tablet Take 1.5 tablets by mouth daily at bedtime. No current facility-administered medications for this visit. Objective Movement Disorders Scales Performed: Ybnw-Zccaib-Edbmz Tremor Scale Face Tremor At Rest: 0 - None. Voice Tremor Action and Intention: 0 - None. Head Tremor At Rest: 0 - None. Posture Holding: Action and Intention: RUE Tremor At Rest: 0 - None. Posture Holdin - None. Action and Intention: 1 - Slight. May be intermittent. LUE Tremor At Rest: 0 - None. Posture Holdin - None. Action and Intention: 1 - Slight. May [...] - Slightly tremulous. May cross lines occasionally. Pertinent Studies 01/07/2019 Cervical Spine MRI: Impression: Mild multilevel degenerative changes of the cervical spine as described. No high-grade spinal canal or neural foraminal stenosis. Assessment and Plan: Assessment Ms. Milian is a left-handed 47 year old year old female with an irregular tremor with action, possibly dystonic but responding to primidone. She is also bothered by RLS. Both her restless leg syndrome and tremor have been worse so an adjustment is being made to her medication as noted below. The following are the current problems noted and addressed during this visit: Essential tremor (primary encounter diagnosis) Restless legs syndrome Plan 05/07/2023 Visit: Restless leg syndrome: Increase the pramipexole 0.5mg to 1.5 tablets Tremor: For the primidone 50mg, after you do the above change with pramipexole, take 4.5 tablets for one week. Then take 5 tablets. Once you are stable on this, please fill the script for 250mg and take one tablet at bedtime of this instead of the five 50mg tablets Back Spasm: Continue taking 1 tablet of Baclofen as needed but if you find you are taking it regulary, take it on a scheduled basis and do not just stop it Depression and anxiety: Continue Buspar and escitalopram Consider seeing a therapist to help you work through coping with your problems Updated Movement Disorders Medication Schedule: Medications Morning Afternoon Bedtime Primidone 250mg 1 Pramipexole 0.50mg for RLS 1.5 Baclofen 10mg as needed 03/31-1 2-1 03/31- Return at or around: 11/05/23 Level of service : 10839 ( 30-39 min). Time spent 33 min on the day of service, which included preparing to see the patient, pwnv-sn-oech patient care, completing clinical documentation, obtaining and/or reviewing separately obtained history, performing a medically appropriate examination, counseling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 complication- Primary Unspecified asthma [facility] Diagnosis Chronic low back pain Lumbago Varicose veins of both lower extremities, unspecified whether complicated [facility] Diagnosis Controlled type 2 diabetes mellitus without complication, with long-term current use of insulin (HCC)- Primary Chronic low back pain, unspecified back pain laterality, unspecified whether sciatica present [facility] Diagnosis Action tremor- Primary Essential and other specified forms of tremor Restless leg syndrome Restless legs syndrome (RLS) [facility]* Diagnosis Anxiety Anxiety state, unspecified [facility]* Diagnosis Anxiety Anxiety state, unspecified [facility]* Diagnosis Chronic bilateral low back pain with bilateral sciatica- Primary [facility]* Diagnosis Mild persistent asthma without complication Unspecified asthma [facility] Diagnosis Mixed hyperlipidemia Anxiety Anxiety state, unspecified Mild persistent asthma without complication Unspecified asthma Chronic GERD Action tremor Essential and other specified forms of tremor Controlled type 2 diabetes mellitus without complication, with long-term current use of insulin (HCC) [facility] Diagnosis Controlled type 2 diabetes mellitus without complication, with long-term current use of insulin (HCC) [facility] Diagnosis Chronic bilateral low back pain with bilateral sciatica [facility] Diagnosis Chronic bilateral low back pain with bilateral sciatica [facility] Diagnosis Controlled type 2 diabetes mellitus without complication, with long-term current use of insulin (HCC) [facility] Diagnosis Chronic bilateral low back pain with bilateral sciatica [facility]* Diagnosis Dysphagia, unspecified type- Primary Controlled type 2 diabetes mellitus without complication, with long-term current use of insulin (HCC) Chronic bilateral low back pain with bilateral sciatica Chronic GERD Nausea and vomiting, unspecified vomiting type Action tremor Essential and other specified forms of tremor [facility]* Diagnosis Chronic GERD [facility] Diagnosis Chronic bilateral low back pain with bilateral sciatica [facility]* Diagnosis Controlled type 2 diabetes mellitus without complication, with long-term current use of insulin ([facility]) [facility]* Diagnosis Patient left without being seen- Primary Surgical or other procedure not carried out because of patient's decision [facility] Diagnosis Bilateral lower extremity edema- Primary Edema [facility]* Diagnosis Chronic bilateral low back pain with bilateral sciatica- Primary Controlled type 2 diabetes mellitus without complication, with long-term current use of insulin (HCC) Mixed hyperlipidemia Anxiety Anxiety state, unspecified Action tremor Essential and other specified forms of tremor Mild persistent asthma without complication Unspecified asthma Bee sting allergy Allergy to insects and arachnids Restless leg syndrome Restless legs syndrome (RLS) Screening for colon cancer Special screening for malignant neoplasms, colon Depressive disorder Depressive disorder, not elsewhere classified [facility]* Diagnosis Controlled type 2 diabetes mellitus without complication, with long-term current use of insulin (HCC) [facility]* Diagnosis Controlled type 2 diabetes mellitus without complication, with long-term current use of insulin (HCC) [facility]* Diagnosis Chronic GERD [facility]* Diagnosis Controlled type 2 diabetes mellitus without complication, with long-term current use of insulin (HCC)- Primary [facility]* Diagnosis Localized swelling of both lower extremities- Primary Varicose veins of both lower extremities, unspecified whether complicated Controlled type 2 diabetes mellitus without complication, with long-term current use of insulin (HCC) Anxiety Anxiety state, unspecified Uses marijuana Cannabis abuse, unspecified History of cocaine abuse (HCC) Cocaine abuse, in remission Tobacco use disorder Alcohol abuse Alcohol abuse, unspecified [facility] Diagnosis Action tremor- Primary Essential and other specified forms of tremor Restless legs syndrome Restless legs syndrome (RLS) [facility]* Diagnosis Anxiety Anxiety state, unspecified [facility]* Diagnosis Mixed hyperlipidemia documented in this encounter [facility] note* Diagnosis Controlled type 2 diabetes mellitus without complication, with long-term current use of insulin ([facility])- Primary Mixed hyperlipidemia Hypokalemia Hypopotassemia documented [facility]* Diagnosis Essential tremor- Primary Essential and other specified forms of tremor Imbalance Abnormality of gait Muscle spasm of back Other symptoms referable to back Fall, subsequent encounter [facility] Diagnosis Controlled type 2 diabetes mellitus without complication, with long-term current use of insulin ([facility]) documented in this encounter [facility] note* Diagnosis Mixed hyperlipidemia [facility] Diagnosis Acute pain of left knee- Primary Multiple falls Personal history of fall [facility] Diagnosis Acute pain of left knee- Primary [facility]* Diagnosis Controlled type 2 diabetes mellitus without complication, with long-term current use of insulin ([facility]) documented in this encounter [facility] note* Diagnosis Mild persistent asthma without complication Unspecified asthma [facility] Diagnosis Multiple falls Personal history of fall Acute pain of left knee [facility]* Diagnosis Essential tremor- Primary Essential and other specified forms of tremor Restless legs syndrome Restless legs syndrome (RLS) documented [facility]* Diagnosis Chronic bilateral low back pain with bilateral sciatica documented in this encounter [facility] for referral (narrative)* Outpatient Procedure (Urgent) - Authorized Specialty Diagnoses / Procedures Referred By Sahil t Referred To [facility] Diagnoses Localized swelling of both lower extremities Procedures US LEG VEIN DVT UNL VAS LAB DUP-SCAN XTR VEINS UNILATERAL/LIMITED STUDY Krystyna Simpson MD [address] [place] [address] [facility] [place] [address] [place] [address] Referral ID Status Reason Start Date Expiration Date Visits Requested Visits Authorized [id number] Authorized Auto-Generat ed Referral 08/26/2022 08/26/2023 1 1 [facility] Summary Purpose Family History No Family History Records FoundNo Family History Records FoundNo Family History Records FoundNo Family History Records FoundNo Family History Records Found No data available for this section No Family History Records Found Advance Directives No [...] SPINAL CANAL LUMBAR W/O CONTRAST MATERIAL Patricia Hobson APRN.GEOLOGICAL TECHNICAL OFFICER [address] [place] [address] Mr Imaging Referral ID Status Reason Start Date Expiration Date Visits Requested Visits Authorized [id number] Pending Review Auto-Generat ed Referral 06/24/2021 07/24/2022 1 1 Specialty Diagnoses / Procedures Referred By Contac t Referred To Contact [facility] [place] Diagnoses Chronic bilateral low back pain with bilateral sciatica Procedures CONSULT TO [facility] OFFICE/OUTPATIENT [facility] 60-74 MINUTES Patricia Hobson APRN.GEOLOGICAL TECHNICAL OFFICER [address] [place] [address] Referral ID Status Reason Start Date Expiration Date Visits Requested Visits Authorized [id number] Pending Review PCP Requested Referral 06/24/2021 06/24/2022 1 1 Specialty Diagnoses / Procedures Referred By Contac t Referred To Contact Patricia Hobson APRN.GEOLOGICAL TECHNICAL OFFICER [address] [place] [address] Referral ID Status Reason Start Date Expiration Date Visits Re quested Visits Authorized [id number] Closed 1 1 Specialty Diagnoses / Procedures Referred By Contac t Referred To Contact Diagnoses Action tremor Restless leg syndrome Procedures PROVIDER ORDERED FOLLOW UP OFFICE/OUTPATIENT [facility] 60-74 MINUTES [facility] [address] [place] [address] Mikhail Gallardo [place] [phone] Referral ID Status Reason Start Date Expiration Date Visits Requested Visits Authorized [id number] Authorized PCP Requested Referral 11/14/2021 02/12/2022 4 4 Specialty Diagnoses / Procedures Referred By Contac t Referred To Contact Gastroenterology Diagnoses Chronic GERD Dysphagia, unspecified type Nausea and vomiting, unspecified vomiting type Procedures CONSULT TO GASTROENTEROLOGY OFFICE/OUTPATIENT [facility] 60-74 MINUTES Timmy Park MD [address] [place] [address] Referral ID Status Reason Start Date Expiration Date Visits Requested Visits Authorized [id number] Pending Review PCP Requested Referral 04/11/2022 04/11/2023 1 1 Specialty Diagnoses / Procedures Referred By Contac t Referred To Contact Orthopedics Diagnoses Multiple falls Acute pain of left knee Procedures CONSULT TO ORTHOPAEDICS OFFICE/OUTPATIENT [facility] 60-74 MINUTES Krystyna Simpson MD [address] [place] [address] Referral ID Status Reason Start Date Expiration Date Visits Requested Visits Authorized [id number] Pending Review PCP Requested Referral 12/17/2022 12/17/2023 1 1 Specialty Diagnoses / Procedures Referred By Contac t Referred To Contact MR IMAGING Diagnoses Multiple falls Acute pain of left knee Procedures MRI KNEE WO IVCON LEFT MRI ANY JT LOWER EXTREM W/O CONTRAST MATRL Froy Gordon MD [address] [place] [address] [place] [address] Referral ID Status Reason Start Date Expiration Date V isits Requested Visits Authorized [id number] Closed Auto-Generate d Referral 01/21/2023 02/20/2023 1 1 Specialty Diagnoses / Procedures Referred By Contac t Referred To Contact Diagnoses Essential tremor Restless legs syndrome Procedures PROVIDER ORDERED FOLLOW UP OFFICE/OUTPATIENT [facility] 60 MINUTES Jennifer Gallardo, [employer]RAZZ[employer] SETTER.GEOLOGICAL TECHNICAL OFFICER [address] [place] [address] Referral ID Status Reason Start Date Expiration Date Visits Requested Visits Authorized [id number] Authorized PCP Requested Referral 11/05/2023 05/06/2024 1 1 Specialty Diagnoses / Procedures Referred By Contac t Referred To Contact Diagnoses Essential tremor Jennifer Gallardo, RUSTIC TERRAZZ[employer] SETTER.GEOLOGICAL TECHNICAL OFFICER [address] [place] [address] Referral ID Status Reason Start Date Expiration Date V isits Requested Visits Authorized [id number] Authorized 03/30/2023 03/29/2024 1 1 Additional Source Comments INFORMATION SOURCE (unrecogn ized section and content) DATE CREATED AUTHOR AUTHOR'S ORGANIZ ATION 10/18/2017 [facility] DATE CREATED AUTHOR AUTHOR'S ORGANIZ ATION 03/08/2018 [facility] DATE CREATED AUTHOR AUTHOR'S ORGANIZ ATION 03/08/2018 [facility] DATE CREATED AUTHOR AUTHOR'S ORGANIZ ATION 05/10/2023 [facility] DATE CREATED AUTHOR AUTHOR'S ORGANIZ ATION 05/27/2023 [facility] (ID) Source Comments (unrecognize d section and content) In the event this informatio n is protected by the Federal Confidentiality of Alcohol and Drug Abuse Patient Records regulations: The Federal rules restrict any use of the information to criminally investigate or prosecute any alcohol or drug abuse patient.[facility] the event this information is protected by the Federal Confidentiality of Alcohol and Drug Abuse Patient Records regulations: The Federal rules restrict any use of the information to criminally investigate or prosecute any alcohol or drug abuse patient.[facility] the event this information is protected by the Federal Confidentiality of Alcohol and Drug Abuse Patient Records regulations: The Federal rules restrict any use of the information to criminally investigate or prosecute any alcohol or drug abuse patient.[facility] the event this information is protected by the Federal Confidentiality of Alcohol and Drug Abuse Patient Records regulations: The Federal rules restrict any use of the information to criminally investigate or prosecute any alcohol or drug abuse patient.[facility] HospitalIn the event this information is protected by the Federal Confidentiality of Alcohol and Drug Abuse Patient Records regulations: The Federal rules restrict any use of the information to criminally investigate or prosecute any alcohol or drug abuse patient.[facility] the event this information is protected by the Federal Confidentiality of Alcohol and Drug Abuse Patient Records regulations: The Federal rules restrict any use of the information to criminally investigate or prosecute any alcohol or drug abuse patient.[facility] HospitalIn the event this information is protected by the Federal Confidentiality of Alcohol and Drug Abuse Patient Records regulations: The Federal rules restrict any use of the information to criminally investigate or prosecute any alcohol or drug abuse patient.[facility] HospitalIn the event this information is protected by the Federal Confidentiality of Alcohol and Drug Abuse Patient Records regulations: The Federal rules restrict any use of the information to criminally investigate or prosecute any alcohol or drug abuse patient.[facility] HospitalIn the event this information is protected by the Federal Confidentiality of Alcohol and Drug Abuse Patient Records regulations: The Federal rules restrict any use of the information to criminally investigate or prosecute any alcohol or drug abuse patient.[facility] HospitalIn the event this information is protected by the Federal Confidentiality of Alcohol and Drug Abuse Patient Records regulations: The Federal rules restrict any use of the information to criminally investigate or prosecute any alcohol or drug abuse patient.[facility] HospitalIn the event this information is protected by the Federal Confidentiality of Alcohol and Drug Abuse Patient Records regulations: The Federal rules restrict any use of the information to criminally investigate or prosecute any alcohol or drug abuse patient.[facility] HospitalIn the event this information is protected by the Federal Confidentiality of Alcohol and Drug Abuse Patient Records regulations: The Federal rules restrict any use of the information to criminally investigate or prosecute any alcohol or drug abuse patient.[facility] HospitalIn the event this information is protected by the Federal Confidentiality of Alcohol and Drug Abuse Patient Records regulations: The Federal rules restrict any use of the information to criminally investigate or prosecute any alcohol or drug abuse patient.[facility] HospitalIn the event this information is protected by the Federal Confidentiality of Alcohol and Drug Abuse Patient Records regulations: The Federal rules restrict any use of the information to criminally investigate or prosecute any alcohol or drug abuse patient.[facility] HospitalIn the event this information is protected by the Federal Confidentiality of Alcohol and Drug Abuse Patient Records regulations: The Federal rules restrict any use of the information to criminally investigate or prosecute any alcohol or drug abuse patient.[facility] HospitalIn the event this information is protected by the Federal Confidentiality of Alcohol and Drug Abuse Patient Records regulations: The Federal rules restrict any use of the information to criminally investigate or prosecute any alcohol or drug abuse patient.[facility] HospitalIn the event this information is protected by the Federal Confidentiality of Alcohol and Drug Abuse Patient Records regulations: The Federal rules restrict any use of the information to criminally investigate or prosecute any alcohol or drug abuse patient.[facility] HospitalIn the event this information is protected by the Federal Confidentiality of Alcohol and Drug Abuse Patient Records regulations: The Federal rules restrict any use of the information to criminally investigate or prosecute any alcohol or drug abuse patient.[facility] HospitalIn the event this information is protected by the Federal Confidentiality of Alcohol and Drug Abuse Patient Records regulations: The Federal rules restrict any use of the information to criminally investigate or prosecute any alcohol or drug abuse patient.[facility] HospitalIn the event this information is protected by the Federal Confidentiality of Alcohol and Drug Abuse Patient Records regulations: The Federal rules restrict any use of the information to criminally investigate or prosecute any alcohol or drug abuse patient.[facility] HospitalIn the event this information is protected by the Federal Confidentiality of Alcohol and Drug Abuse Patient Records regulations: The Federal rules restrict any use of the information to criminally investigate or prosecute any alcohol or drug abuse patient.[facility] HospitalIn the event this information is protected by the Federal Confidentiality of Alcohol and Drug Abuse Patient Records regulations: The Federal rules restrict any use of the information to criminally investigate or prosecute any alcohol or drug abuse patient.[facility] HospitalIn the event this information is protected by the Federal Confidentiality of Alcohol and Drug Abuse Patient Records regulations: The Federal rules restrict any use of the information to criminally investigate or prosecute any alcohol or drug abuse patient.[facility] HospitalIn the event this information is protected by the Federal Confidentiality of Alcohol and Drug Abuse Patient Records regulations: The Federal rules restrict any use of the information to criminally investigate or prosecute any alcohol or drug abuse patient.[facility] HospitalIn the event this information is protected by the Federal Confidentiality of Alcohol and Drug Abuse Patient Records regulations: The Federal rules restrict any use of the information to criminally investigate or prosecute any alcohol or drug abuse patient.[facility] HospitalIn the event this information is protected by the Federal Confidentiality of Alcohol and Drug Abuse Patient Records regulations: The Federal rules restrict any use of the information to criminally investigate or prosecute any alcohol or drug abuse patient.[facility] HospitalIn the event this information is protected by the Federal Confidentiality of Alcohol and Drug Abuse Patient Records regulations: The Federal rules restrict any use of the information to criminally investigate or prosecute any alcohol or drug abuse patient.[facility] HospitalIn the event this information is protected by the Federal Confidentiality of Alcohol and Drug Abuse Patient Records regulations: The Federal rules restrict any use of the information to criminally investigate or prosecute any alcohol or drug abuse patient.[facility] HospitalIn the event this information is protected by the Federal Confidentiality of Alcohol and Drug Abuse Patient Records regulations: The Federal rules restrict any use of the information to criminally investigate or prosecute any alcohol or drug abuse patient.[facility] HospitalIn the event this information is protected by the Federal Confidentiality of Alcohol and Drug Abuse Patient Records regulations: The Federal rules restrict any use of the information to criminally investigate or prosecute any alcohol or drug abuse patient.[facility] HospitalIn the event this information is protected by the Federal Confidentiality of Alcohol and Drug Abuse Patient Records regulations: The Federal rules restrict any use of the information to criminally investigate or prosecute any alcohol or drug abuse patient.[facility] HospitalIn the event this information is protected by the Federal Confidentiality of Alcohol and Drug Abuse Patient Records regulations: The Federal rules restrict any use of the information to criminally investigate or prosecute any alcohol or drug abuse patient.[facility] HospitalIn the event this information is protected by the Federal Confidentiality of Alcohol and Drug Abuse Patient Records regulations: The Federal rules restrict any use of the information to criminally investigate or prosecute any alcohol or drug abuse patient.[facility] HospitalIn the event this information is protected by the Federal Confidentiality of Alcohol and Drug Abuse Patient Records regulations: The Federal rules restrict any use of the information to criminally investigate or prosecute any alcohol or drug abuse patient.[facility] HospitalIn the event this information is protected by the Federal Confidentiality of Alcohol and Drug Abuse Patient Records regulations: The Federal rules restrict any use of the information to criminally investigate or prosecute any alcohol or drug abuse patient.[facility] HospitalIn the event this information is protected by the Federal Confidentiality of Alcohol and Drug Abuse Patient Records regulations: The Federal rules restrict any use of the information to criminally investigate or prosecute any alcohol or drug abuse patient.[facility] HospitalIn the event this information is protected by the Federal Confidentiality of Alcohol and Drug Abuse Patient Records regulations: The Federal rules restrict any use of the information to criminally investigate or prosecute any alcohol or drug abuse patient.[facility] HospitalIn the event this information is protected by the Federal Confidentiality of Alcohol and Drug Abuse Patient Records regulations: The Federal rules restrict any use of the information to criminally investigate or prosecute any alcohol or drug abuse patient.[facility] HospitalIn the event this information is protected by the Federal Confidentiality of Alcohol and Drug Abuse Patient Records regulations: The Federal rules restrict any use of the information to criminally investigate or prosecute any alcohol or drug abuse patient.[facility] HospitalIn the event this information is protected by the Federal Confidentiality of Alcohol and Drug Abuse Patient Records regulations: The Federal rules restrict any use of the information to criminally investigate or prosecute any alcohol or drug abuse patient.[facility] HospitalIn the event this information is protected by the Federal Confidentiality of Alcohol and Drug Abuse Patient Records regulations: The Federal rules restrict any use of the information to criminally investigate or prosecute any alcohol or drug abuse patient.[facility] HospitalIn the event this information is protected by the Federal Confidentiality of Alcohol and Drug Abuse Patient Records regulations: The Federal rules restrict any use of the information to criminally investigate or prosecute any alcohol or drug abuse patient.[facility] HospitalIn the event this information is protected by the Federal Confidentiality of Alcohol and Drug Abuse Patient Records regulations: The Federal rules restrict any use of the information to criminally investigate or prosecute any alcohol or drug abuse patient.[facility] HospitalIn the event this information is protected by the Federal Confidentiality of Alcohol and Drug Abuse Patient Records regulations: The Federal rules restrict any use of the information to criminally investigate or prosecute any alcohol or drug abuse patient.[facility] HospitalIn the event this information is protected by the Federal Confidentiality of Alcohol and Drug Abuse Patient Records regulations: The Federal rules restrict any use of the information to criminally investigate or prosecute any alcohol or drug abuse patient.[facility] HospitalIn the event this information is protected by the Federal Confidentiality of Alcohol and Drug Abuse Patient Records regulations: The Federal rules restrict any use of the information to criminally investigate or prosecute any alcohol or drug abuse patient.[facility] HospitalIn the event this information is protected by the Federal Confidentiality of Alcohol and Drug Abuse Patient Records regulations: The Federal rules restrict any use of the information to criminally investigate or prosecute any alcohol or drug abuse patient.[facility] HospitalIn the event this information is protected by the Federal Confidentiality of Alcohol and Drug Abuse Patient Records regulations: The Federal rules restrict any use of the information to criminally investigate or prosecute any alcohol or drug abuse patient.[facility] HospitalIn the event this information is protected by the Federal Confidentiality of Alcohol and Drug Abuse Patient Records regulations: The Federal rules restrict any use of the information to criminally investigate or prosecute any alcohol or drug abuse patient.[facility] HospitalIn the event this information is protected by the Federal Confidentiality of Alcohol and Drug Abuse Patient Records regulations: The Federal rules restrict any use of the information to criminally investigate or prosecute any alcohol or drug abuse patient.[facility] HospitalIn the event this information is protected by the Federal Confidentiality of Alcohol and Drug Abuse Patient Records regulations: The Federal rules restrict any use of the information to criminally investigate or prosecute any alcohol or drug abuse patient.[facility] HospitalIn the event this information is protected by the Federal Confidentiality of Alcohol and Drug Abuse Patient Records regulations: The Federal rules restrict any use of the information to criminally investigate or prosecute any alcohol or drug abuse patient.[facility] HospitalIn the event this information is protected by the Federal Confidentiality of Alcohol and Drug Abuse Patient Records regulations: The Federal rules restrict any use of the information to criminally investigate or prosecute any alcohol or drug abuse patient.[facility] HospitalIn the event this information is protected by the Federal Confidentiality of Alcohol and Drug Abuse Patient Records regulations: The Federal rules restrict any use of the information to criminally investigate or prosecute any alcohol or drug abuse patient.[facility] HospitalIn the event this information is protected by the Federal Confidentiality of Alcohol and Drug Abuse Patient Records regulations: The Federal rules restrict any use of the information to criminally investigate or prosecute any alcohol or drug abuse patient.[facility] HospitalIn the event this information is protected by the Federal Confidentiality of Alcohol and Drug Abuse Patient Records regulations: The Federal rules restrict any use of the information to criminally investigate or prosecute any alcohol or drug abuse patient.[facility] HospitalIn the event this information is protected by the Federal Confidentiality of Alcohol and Drug Abuse Patient Records regulations: The Federal rules restrict any use of the information to criminally investigate or prosecute any alcohol or drug abuse patient.[facility] HospitalIn the event this information is protected by the Federal Confidentiality of Alcohol and Drug Abuse Patient Records regulations: The Federal rules restrict any use of the information to criminally investigate or prosecute any alcohol or drug abuse patient.[facility] HospitalIn the event this information is protected by the Federal Confidentiality of Alcohol and Drug Abuse Patient Records regulations: The Federal rules restrict any use of the information to criminally investigate or prosecute any alcohol or drug abuse patient.[facility] HospitalIn the event this information is protected by the Federal Confidentiality of Alcohol and Drug Abuse Patient Records regulations: The Federal rules restrict any use of the information to criminally investigate or prosecute any alcohol or drug abuse patient.[facility] HospitalIn the event this information is protected by the Federal Confidentiality of Alcohol and Drug Abuse Patient Records regulations: The Federal rules restrict any use of the information to criminally investigate or prosecute any alcohol or drug abuse patient.[facility] HospitalIn the event this information is protected by the Federal Confidentiality of Alcohol and Drug Abuse Patient Records regulations: The Federal rules restrict any use of the information to criminally investigate or prosecute any alcohol or drug abuse patient.[facility] HospitalIn the event this information is protected by the Federal Confidentiality of Alcohol and Drug Abuse Patient Records regulations: The Federal rules restrict any use of the information to criminally investigate or prosecute any alcohol or drug abuse patient.[facility] HospitalIn the event this information is protected by the Federal Confidentiality of Alcohol and Drug Abuse Patient Records regulations: The Federal rules restrict any use of the information to criminally investigate or prosecute any alcohol or drug abuse patient.[facility] HospitalIn the event this information is protected by the Federal Confidentiality of Alcohol and Drug Abuse Patient Records regulations: The Federal rules restrict any use of the information to criminally investigate or prosecute any alcohol or drug abuse patient.[facility] HospitalIn the event this information is protected by the Federal Confidentiality of Alcohol and Drug Abuse Patient Records regulations: The Federal rules restrict any use of the information to criminally investigate or prosecute any alcohol or drug abuse patient.[facility] HospitalIn the event this information is protected by the Federal Confidentiality of Alcohol and Drug Abuse Patient Records regulations: The Federal rules restrict any use of the information to criminally investigate or prosecute any alcohol or drug abuse patient.[facility] HospitalIn the event this information is protected by the Federal Confidentiality of Alcohol and Drug Abuse Patient Records regulations: The Federal rules restrict any use of the information to criminally investigate or prosecute any alcohol or drug abuse patient.[facility] HospitalIn the event this information is protected by the Federal Confidentiality of Alcohol and Drug Abuse Patient Records regulations: The Federal rules restrict any use of the information to criminally investigate or prosecute any alcohol or drug abuse patient.[facility] HospitalIn the event this information is protected by the Federal Confidentiality of Alcohol and Drug Abuse Patient Records regulations: The Federal rules restrict any use of the information to criminally investigate or prosecute any alcohol or drug abuse patient.[facility] HospitalIn the event this information is protected by the Federal Confidentiality of Alcohol and Drug Abuse Patient Records regulations: The Federal rules restrict any use of the information to criminally investigate or prosecute any alcohol or drug abuse patient.[facility] HospitalIn the event this information is protected by the Federal Confidentiality of Alcohol and Drug Abuse Patient Records regulations: The Federal rules restrict any use of the information to criminally investigate or prosecute any alcohol or drug abuse patient.[facility] HospitalIn the event this information is protected by the Federal Confidentiality of Alcohol and Drug Abuse Patient Records regulations: The Federal rules restrict any use of the information to criminally investigate or prosecute any alcohol or drug abuse patient.[facility] HospitalIn the event this information is protected by the Federal Confidentiality of Alcohol and Drug Abuse Patient Records regulations: The Federal rules restrict any use of the information to criminally investigate or prosecute any alcohol or drug abuse patient.[facility] HospitalIn the event this information is protected by the Federal Confidentiality of Alcohol and Drug Abuse Patient Records regulations: The Federal rules restrict any use of the information to criminally investigate or prosecute any alcohol or drug abuse patient.[facility] HospitalIn the event this information is protected by the Federal Confidentiality of Alcohol and Drug Abuse Patient Records regulations: The Federal rules restrict any use of the information to criminally investigate or prosecute any alcohol or drug abuse patient.[facility] HospitalIn the event this information is protected by the Federal Confidentiality of Alcohol and Drug Abuse Patient Records regulations: The Federal rules restrict any use of the information to criminally investigate or prosecute any alcohol or drug abuse patient.[facility] HospitalIn the event this information is protected by the Federal Confidentiality of Alcohol and Drug Abuse Patient Records regulations: The Federal rules restrict any use of the information to criminally investigate or prosecute any alcohol or drug abuse patient.[facility] HospitalIn the event this information is protected by the Federal Confidentiality of Alcohol and Drug Abuse Patient Records regulations: The Federal rules restrict any use of the information to criminally investigate or prosecute any alcohol or drug abuse patient.[facility] HospitalIn the event this information is protected by the Federal Confidentiality of Alcohol and Drug Abuse Patient Records regulations: The Federal rules restrict any use of the information to criminally investigate or prosecute any alcohol or drug abuse patient.[facility] HospitalIn the event this information is protected by the Federal Confidentiality of Alcohol and Drug Abuse Patient Records regulations: The Federal rules restrict any use of the information to criminally investigate or prosecute any alcohol or drug abuse patient.[facility] HospitalIn the event this information is protected by the Federal Confidentiality of Alcohol and Drug Abuse Patient Records regulations: The Federal rules restrict any use of the information to criminally investigate or prosecute any alcohol or drug abuse patient.[facility] HospitalIn the event this information is protected by the Federal Confidentiality of Alcohol and Drug Abuse Patient Records regulations: The Federal rules restrict any use of the information to criminally investigate or prosecute any alcohol or drug abuse patient.[facility] HospitalIn the event this information is protected by the Federal Confidentiality of Alcohol and Drug Abuse Patient Records regulations: The Federal rules restrict any use of the information to criminally investigate or prosecute any alcohol or drug abuse patient.[facility] HospitalIn the event this information is protected by the Federal Confidentiality of Alcohol and Drug Abuse Patient Records regulations: The Federal rules restrict any use of the information to criminally investigate or prosecute any alcohol or drug abuse patient.[facility] HospitalIn the event this information is protected by the Federal Confidentiality of Alcohol and Drug Abuse Patient Records regulations: The Federal rules restrict any use of the information to criminally investigate or prosecute any alcohol or drug abuse patient.[facility] HospitalIn the event this information is protected by the Federal Confidentiality of Alcohol and Drug Abuse Patient Records regulations: The Federal rules restrict any use of the information to criminally investigate or prosecute any alcohol or drug abuse patient.[facility] Reason for Visit (unrecogniz ed section and content) Reason Comments in office follow up Reason Comments Medication Question Reason Onset Date Comments Refill Request 07/17/2021 Reason Comments Lab Orders Reason Comments Handicap sticker Reason Comments Prescription Refills Reason Comments Forms/letter Reason Comments Insurance Authorization rollator kathie Reason Comments Orders Reason Comments Rx issue Reason Onset Date Comments Refill Request 11/04/2021 Reason Comments Appointment Reason Comments Recheck Back Pain Reason Comments Action tremor Specialty Diagnoses / Procedures Referred By Contac t Referred To Contact Diagnoses Action tremor Restless leg syndrome Procedures PROVIDER ORDERED FOLLOW UP OFFICE/OUTPATIENT [facility] MDM 60-[address] [address] Mikhail Gallardo [place] [id number] Referral ID Status Reason Start Date Expiration Date Visits Requested Visits Authorized [id number] Authorized PCP Requested Referral 11/14/2021 02/12/2022 4 [...] NEW HIGH MDM 60-74 MINUTES Jennifer Gallardo, RUSTIC TERRAZZO SETTER.GEOLOGICAL TECHNICAL OFFICER [address] [place] [address] Referral ID Status Reason Start Date Expiration Date Visits Requested Visits Authorized [id number] Pending Review PCP Requested Referral 3 07/07/2023 1 1 Reason Onset Date Comments [...] Procedures Hospital follow up Krystyna Simpson MD [address] [place] [address] [facility] [address] [place] [address] Referral ID Status Reason Start Date Expiration Date Visits Requested Visits Authorized [id number] Pending Review OON/Self Pay Override 12/16/2022 06/14/2023 1 1 Reason Onset Date Comments Refill Request 12/19/2022 Reason Comments Patient Update Patient Question Reason Comments Knee Pain left knee pain x 1 m onth, fell twice using mobic Reason Onset Date Comments Refill Request 01/05/2023 Reason Onset Date Comments Refill Request 01/21/2023 Reason Comments New Pain Specialty Diagnoses / Procedures Referred By Sahil roman Referred To Contact ORTHOPAEDIC SURGERY Diagnoses multiple falls acute pain of left knee Procedures Office visit Krystyna Simpson MD [address] [facility] [address] [facility] [address] [place] [address] Referral ID Status Reason Start Date Expiration Date Visits Requested Visits Authorized [id number] Pending Review OON/Self Pay Override 12/17/2022 06/15/2023 1 1 Reason Comments Results mri Reason Comments Follow Up Reason Onset Date Comments handicap placard 09/09/2022 Refill Request 09/09/2022 Refill Request 06/01/2023 Care Teams (unrecognized sec tion and content) Real Estate Transaction Coordinator Relationship Specialty Start Date End Date Timmy Park MD [address] [place] [address] PCP - General Internal Medicine 12/20/15 Timmy Park MD [address] [place] [address] Internal Medicine 12/20/15 Real Estate Transaction Coordinator Relationship Specialty Start Date End Date Timmy Park MD [address] [place] [address] PCP - General Internal Medicine 12/20/15 Timmy Park MD [address] [place] [address] Internal Medicine 12/20/15 Real Estate Transaction Coordinator Relationship Specialty Start Date End Date Timmy Park MD [address] [place] [address] PCP - General Internal Medicine 12/20/15 Timmy Park MD [address] [place] [address] Internal Medicine 12/20/15 Real Estate Transaction Coordinator Relationship Specialty Start Date End Date Timmy Park MD [address] [place] [address] PCP - General Internal Medicine 12/20/15 Timmy Park MD [address] [place] [address] Internal Medicine 12/20/15 Real Estate Transaction Coordinator Relationship Specialty Start Date End Date Timmy Park MD [address] [place] [address] PCP - General Internal Medicine 12/20/15 Timmy Park MD [address] [place] [address] Internal Medicine 12/20/15 Real Estate Transaction Coordinator Relationship Specialty Start Date End Date Timmy Park MD [address] [place] [address] PCP - General Internal Medicine 12/20/15 Timmy Park MD [address] [place] [address] Internal Medicine 12/20/15 Real Estate Transaction Coordinator Relationship Specialty Start Date End Date Timmy Park MD [address] [place] [address] PCP - General Internal Medicine 12/20/15 Timmy Park MD [address] [place] [address] Internal Medicine 12/20/15 Real Estate Transaction Coordinator Relationship Specialty Start Date End Date Timmy Park MD [address] [place] [address] PCP - General Internal Medicine 12/20/15 Timmy Park MD [address] [place] [address] Internal Medicine 12/20/15 Real Estate Transaction Coordinator Relationship Specialty Start Date End Date Timmy Park MD [address] [place] [address] PCP - General Internal Medicine 12/20/15 Timmy Park MD [address] [place] [address] Internal Medicine 12/20/15 Real Estate Transaction Coordinator Relationship Specialty Start Date End Date Timmy Park MD [address] [place] [address] PCP - General Internal Medicine 12/20/15 Timmy Park MD [address] [place] [address] Internal Medicine 12/20/15 Real Estate Transaction Coordinator Relationship Specialty Start Date End Date Timmy Park MD [address] [place] [address] PCP - General Internal Medicine 12/20/15 Timmy Park MD [address] [place] [address] Internal Medicine 12/20/15 Real Estate Transaction Coordinator Relationship Specialty Start Date End Date Timmy Park MD [address] [place] [address] PCP - General Internal Medicine 12/20/15 Timmy Park MD [address] [place] [address] Internal Medicine 12/20/15 Real Estate Transaction Coordinator Relationship Specialty Start Date End Date Timmy Park MD [address] [place] [address] PCP - General Internal Medicine 12/20/15 Timmy Park MD [address] [facility] [place] [address] Internal Medicine 12/20/15 Real Estate Transaction Coordinator Relationship Specialty Start Date End Date Timmy Park MD [address] [facility] [place] [address] PCP - General Internal Medicine 12/20/15 Timmy Park MD [address] [facility] [place] [address] Internal Medicine 12/20/15 Real Estate Transaction Coordinator Relationship Specialty Start Date End Date Timmy Park MD [address] [facility] [place] [address] PCP - General Internal Medicine 12/20/15 Timmy Park MD [address] [facility] [place] [address] Internal Medicine 12/20/15 Real Estate Transaction Coordinator Relationship Specialty Start Date End Date Timmy Park MD [address] [place] [address] PCP - General Internal Medicine 12/20/15 Timmy Park MD [address] [facility] [place] [address] Internal Medicine 12/20/15 Real Estate Transaction Coordinator Relationship Specialty Start Date End Date Timmy Park MD [address] [facility] [place] [address] PCP - General Internal Medicine 12/20/15 Timmy Park MD [address] [facility] [place] [address] Internal Medicine 12/20/15 Real Estate Transaction Coordinator Relationship Specialty Start Date End Date Timmy Park MD [address] [place] [address] PCP - General Internal Medicine 12/20/15 Timmy Park MD [address] [place] [address] Internal Medicine 12/20/15 Real Estate Transaction Coordinator Relationship Specialty Start Date End Date Timmy Park MD [address] [facility] [place] [address] PCP - General Internal Medicine 12/20/15 Timmy Park MD [address] [facility] [address] Internal Medicine 12/20/15 Real Estate Transaction Coordinator Relationship Specialty Start Date End Date Timmy Park MD [address] [facility] [address] PCP - General Internal Medicine 12/20/15 Timmy Park MD [address] [facility] [address] Internal Medicine 12/20/15 Real Estate Transaction Coordinator Relationship Specialty Start Date End Date Timmy Park MD [address] [facility] [address] PCP - General Internal Medicine 12/20/15 Timmy Park MD [address] [facility] [address] Internal Medicine 12/20/15 Real Estate Transaction Coordinator Relationship Specialty Start Date End Date Timmy Park MD [address] [facility] [address] PCP - General Internal Medicine 12/20/15 Timmy Park MD [address] [facility] [address] Internal Medicine 12/20/15 Real Estate Transaction Coordinator Relationship Specialty Start Date End Date Timmy Park MD [address] [place] [address] PCP - General Internal Medicine 12/20/15 Timmy Park MD [address] [place] [address] Internal Medicine 12/20/15 Real Estate Transaction Coordinator Relationship Specialty Start Date End Date Timmy Park MD [address] [place] [address] PCP - General Internal Medicine 12/20/15 Timmy Park MD [address] [place] [address] Internal Medicine 12/20/15 Real Estate Transaction Coordinator Relationship Specialty Start Date End Date Timmy Park MD [address] [place] [address] PCP - General Internal Medicine 12/20/15 09/08/22 Krystyna Simpson MD [address] [place] [address] PCP - General Family Medicine 09/09/22 Timmy Park MD [address] [facility] [place] [address] Internal Medicine 12/20/15 Real Estate Transaction Coordinator Relationship Specialty Start Date End Date Krystyna Simpson MD [address] [place] [address] PCP - General Family Medicine 09/09/22 Timmy Park MD [address] [facility] [place] [address] Internal Medicine 12/20/15 Real Estate Transaction Coordinator Relationship Specialty Start Date End Date Krystyna Simpson MD [address] [place] [address] PCP - General Family Medicine 09/09/22 Timmy Park MD [address] [place] [address] Internal Medicine 12/20/15 Real Estate Transaction Coordinator Relationship Specialty Start Date End Date Krystyna Simpson MD [address] [place] [address] PCP - General Family Medicine 09/09/22 Timmy Park MD [address] [place] [address] Internal Medicine 12/20/15 Real Estate Transaction Coordinator Relationship Specialty Start Date End Date Krystyna Simpson MD [address] [place] [address] PCP - General Family Medicine 09/09/22 Timmy Park MD [address] [place] [address] Internal Medicine 12/20/15 Real Estate Transaction Coordinator Relationship Specialty Start Date End Date Krystyna Simpson MD [address] [place] [address] PCP - General Family Medicine 09/09/22 Timmy Park MD [address] [place] [address] Internal Medicine 12/20/15 Real Estate Transaction Coordinator Relationship Specialty Start Date End Date Krystyna Simpson MD [address] [place] [address] PCP - General Family Medicine 09/09/22 Timmy Park MD [address] [place] [address] Internal Medicine 12/20/15 Real Estate Transaction Coordinator Relationship Specialty Start Date End Date Krystyna Simpson MD [address] [place] [address] PCP - General Family Medicine 09/09/22 Timmy Park MD [address] [place] [address] Internal Medicine 12/20/15 Real Estate Transaction Coordinator Relationship Specialty Start Date End Date Krystyna Simpson MD [address] [place] [address] PCP - General Family Medicine 09/09/22 Timmy Park MD [address] [place] [address] Internal Medicine 12/20/15 Real Estate Transaction Coordinator Relationship Specialty Start Date End Date Krystyna Simpson MD [address] [place] [address] PCP - General Family Medicine 09/09/22 Timmy Park MD [address] [place] [address] Internal Medicine 12/20/15 Real Estate Transaction Coordinator Relationship Specialty Start Date End Date Krystyna Simpson MD [address] [facility] [address] PCP - General Family Medicine 09/09/22 Timmy Park MD [address] [place] [address] Internal Medicine 12/20/15 Real Estate Transaction Coordinator Relationship Specialty Start Date End Date Pcp, No, [employer]TER PCP - General 06/27/09 01/27/10 Pcp, No, [employer]IC [employer]TER PCP - General 07/29/06 11/28/07 Pcp, No, [employer]IC [employer]TER PCP - General 01/12/14 07/27/14 Pcp, No, [employer]IC [employer]TER PCP - General 06/07/15 12/19/15 Timmy Park MD [address] [place] [address] PCP - General Internal Medicine 12/20/15 09/08/22 Krystyna Simpson MD [address] [place] [address] PCP - General Family Medicine 09/09/22 Timmy Park MD [address] [place] [address] Internal Medicine 12/20/15 Real Estate Transaction Coordinator Relationship Specialty Start Date End Date Pcp, No, [employer]IC [employer] SETTER PCP - General 06/27/09 01/27/10 Pcp, No, [employer]IC [employer] SETTER PCP - General 07/29/06 11/28/07 Pcp, No, [employer]IC [employer] SETTER PCP - General 01/12/14 07/27/14 Pcp, No, [employer]IC [employer] SETTER PCP - General 06/07/15 12/19/15 Timmy Park MD [address] [place] [address] PCP - General Internal Medicine 12/20/15 09/08/22 Krystyna Simpson MD [address] [facility] [place] [address] PCP - General Family Medicine 09/09/22 Timmy Park MD [address] [place] [address] Internal Medicine 12/20/15 Real Estate Transaction Coordinator Relationship Specialty Start Date End Date Krystyna Simpson MD [address] [facility] [place] [address] PCP - General Family Medicine 09/09/22 Timmy Park MD [address] [facility] [place] [address] Internal Medicine 12/20/15 Real Estate Transaction Coordinator Relationship Specialty Start Date End Date Timmy Park MD [address] [place] [address] Internal Medicine 12/20/15 Real Estate Transaction Coordinator Relationship Specialty Start Date End Date Timmy Park MD [address] [place] [address] Internal Medicine 12/20/15 Real Estate Transaction Coordinator Relationship Specialty Start Date End Date Timmy Park MD [address] [facility] [place] [address] Internal Medicine 12/20/15 Real Estate Transaction Coordinator Relationship Specialty Start Date End Date Timmy Park MD [address] [place] [address] Internal Medicine 12/20/15 Real Estate Transaction Coordinator Relationship Specialty Start Date End Date Timmy Park MD [address] [facility], [place] [address] Internal Medicine 12/20/15 Real Estate Transaction Coordinator Relationship Specialty Start Date End Date Timmy Park MD [address] [facility], [place] [address] Internal Medicine 12/20/15 Real Estate Transaction Coordinator Relationship Specialty Start Date End Date Timmy Prak MD [address] [facility], [place] [address] Internal Medicine 12/20/15 Real Estate Transaction Coordinator Relationship Specialty Start Date End Date Krystyna Simpson MD [address] [place], [place] [address] PCP - General Family Medicine 09/09/22 12/19/22 Timmy Park MD [address] [facility], [place] [address] Internal Medicine 12/20/15 05/06/23 FOR RECORDS PERTAINING TO PATIENTS WHO ARE [...] BE BASED ON THE PRIMARY CLINICAL RECORDS. [employer] provides no warranty or guarantee of the accuracy or completeness of information in this document.
[2023-06-05 12:25] LABS: ALB/GLOB Ratio 0.9 RATIO (0.9-2.4); AST(SGOT) 12 U/L (15-37); Alanine Aminotransfer ALT/SGPT 16 U/L (13-56); Albumin, Serum 3.1 g/dL (3.2-5.0); Alkaline Phosphatase 105 U/L (45-117); Anion Gap 4 (5-15); BUN 7 mg/dL (7-18); BUN/Creat Ratio 9.6 RATIO (10-20); Calcium,Total 9.1 mg/dL (8.5-10.1); Chloride 104 mmol/L (98-107); Creatinine, Serum 0.73 mg/dL (0.55-1.02); EST Glomerular Filtration Rate 92 mL/min (>60); Est Glom Filt Rate - Afr Amer 111 mL/min (>60); Globulin 3.3 g/dL (2.2-4.2); Glucose 146 mg/dL (74-106); Protein, Total 6.4 g/dL (6.4-8.2); Sodium Level 138 mmol/L (136-145)
== END | disposition home or self-care (01) ==
LOC: BIMLAB 10:12
PROVIDERS: PCP Nurse Practitioner; Visit Provider Nurse Practitioner
DX: E78.00 Pure hypercholesterolemia, unspecified (principal); R06.00 Dyspnea, unspecified
CPT/HCPCS: 36415; 80053; 83880

== ENCOUNTER → 2023-06-10 | Outpatient (CLI) | payer MEDICARE, MEDICAID, SELFPAY ==
--- NOTE | 2023-06-10 10:20 | VDLE_ITS ---
Reason For Study: LLE Swelling RIGHT LEFT CFV is compressible, spontaneous, phasic, GSV is normal. competent and demonstrates normal CFV is compressible, spontaneous, phasic, augmentation. competent, and demonstrates normal Procedure augmentation. This is a venous duplex using B-mode, color FV is compressible, spontaneous, phasic, flow and spectral Doppler. competent and demonstrates normal Exam performed in department. augmentation. The exam was diagnostic. POP V is compressible, spontaneous, phasic, A preliminary report was called and/or faxed competent and demonstrates normal to Litzy Singh office. augmentation. T/P Trunk is compressible. PTV is compressible. LT PerV is compressible. VL/Venous Duplex US, Unilateral Interpretation Summary Deep veins of the left lower extremity are patent and compressible segmentally. There is no evidence of left lower extremity deep vein thrombosis. The left great saphenous vein radha ears patent and compressible segmentally. Ordering Physician: Litzy Garcia Referring Physician: Litzy Garcia Performed By: Kory North, RVT
== END | disposition home or self-care (01) ==
LOC: CVS 10:19
PROVIDERS: PCP Nurse Practitioner; Referring Provider Nurse Practitioner; Visit Provider Nurse Practitioner
DX: R60.0 Localized edema (principal)
CPT/HCPCS: 93971

== ENCOUNTER 2023-06-16 08:19 | Outpatient (CLI) | payer MEDICARE, MEDICAID, SELFPAY ==
--- NOTE | 2023-06-16 08:29 | BD_ITS ---
STUDY: DUAL ENERGY X-RAY ABSORPTIOMETRY / DXA REASON FOR EXAM: Female, 47 years old. Screening for osteoporosis TECHNIQUE: Bone Mineral Density (BMD) measurements of lumbar spine and bilateral hips were obtained. COMPARISON: None. FINDINGS: Lumbar Spine (L1-L4): g/cm2 (0.836) / T-score (-1.9) / Z-score (-1.4) Findings are suggestive of osteopenia with a moderate fracture risk. Left Femur Total: g/cm2 (0.754) / T-score (-1.5) / Z-score (-1.2) Left Femoral Neck: g/cm2 (0.614) / T-score (-2.1) / Z-score (-1.6) Right Femur Total: g/cm2 (0.820) / T-score (-1.0) / Z-score (-0.7) Right Femoral Neck: g/cm2 (0.646) / T-score (-1.8) / Z-score (-1.3) BD/Dexa Bone Density Study IMPRESSION: The patient is considered osteopenic as outlined below according to World [employer] Organization (WHO) criteria with a high fracture risk. Reference Information: The T-score is the number of standard deviations above or below the standard which is normal for young adults at their peak bone mineral density. The World Health Organization (WHO) interprets the T-scores as follows: Above -1 Normal bone density Between -1 and -2.5 Osteopenia Equal to / or below -2.5 Osteoporosis As a practical clinical guideline, osteopenia may be graded as follows: Mild -1 through -1.5 Moderate -1.6 through -2.0 Severe -2.1 through -2.4 The Z-score is the number of standard deviations above or below age-matched controls. A Z-score of less than -1.5 would be considered abnormal. References: 1. NIH Osteoporosis and Related Bone Diseases www osteo.org 2. International Society for Clinical Densitometry www iscd.org 3. National Osteoporosis Foundation www nof.org Electronically Signed: Saul Colon MD at 19:29 EDT ,
== END 2023-06-16 23:59 | disposition home or self-care (01) ==
LOC: OPBD 08:22
PROVIDERS: PCP Nurse Practitioner; Referring Provider Nurse Practitioner; Visit Provider Nurse Practitioner
DX: M85.869 Other specified disorders of bone density and structure, unspecified lower leg (principal)
CPT/HCPCS: 77080

== ENCOUNTER → 2023-06-23 | Outpatient (CLI) | payer MEDICARE, MEDICAID, SELFPAY ==
[2023-06-23 12:59] LABS: ALB/GLOB Ratio 1.1 RATIO (0.9-2.4); AST(SGOT) 10 U/L (15-37); Alanine Aminotransfer ALT/SGPT 17 U/L (13-56); Albumin, Serum 3.6 g/dL (3.2-5.0); Alkaline Phosphatase 100 U/L (45-117); Anion Gap 8 (5-15); BUN 11 mg/dL (7-18); BUN/Creat Ratio 11.9 RATIO (10-20); Calcium,Total 9.1 mg/dL (8.5-10.1); Chloride 105 mmol/L (98-107); Creatinine, Serum 0.92 mg/dL (0.55-1.02); EST Glomerular Filtration Rate 69 mL/min (>60); Est Glom Filt Rate - Afr Amer 84 mL/min (>60); Globulin 3.4 g/dL (2.2-4.2); Glucose 114 mg/dL (74-106); Potassium 3.6 mmol/L (3.5-5.1); Sodium Level 139 mmol/L (136-145)
[2023-06-23 13:41] LABS: Hemoglobin A1c 6.8 % (3.8-5.6)
== END | disposition home or self-care (01) ==
LOC: BIMLAB 11:19
PROVIDERS: PCP Nurse Practitioner; Referring Provider Nurse Practitioner; Visit Provider Nurse Practitioner
DX: E78.5 Hyperlipidemia, unspecified (principal); E11.8 Type 2 diabetes mellitus with unspecified complications
CPT/HCPCS: 36415; 80053; 83036

== ENCOUNTER 2023-08-17 04:43 | Emergency (ER) | payer MEDICARE, MEDICAID, SELFPAY ==
[2023-08-17 04:44] VITALS: BP 141/67; PULSE 95; RESP 16; TEMP 36.6; O2SAT 97; BMI 25.6
[2023-08-17] MEDS: Ondansetron ODT 4 MG Tablet PO (05:19)
[2023-08-17] MEDS: Morphine 4 MG/ML Syringe 6 MG IM (05:19)
[2023-08-17] MEDS: Lidocaine 2% /Epi 1:100 (20ml) 20 ML VIAL INFILT (05:22)
--- NOTE | 2023-08-17 06:12 | EDS_ITS ---
HPI History of Present Illness Chief Complaint: Abscess Informant: patient and spouse/S.O. Narrative Narrative: Patient is a 47 female with past medical history of [id number] diabetes as well as hypertension. She states that over the last 5 to 7 days she is felt like there was a small lump in the perineal region and over the last 1 to 2 days its increased in size and pain. She denies any fevers or chills and states her blood sugars have been running at her baseline. However with increased size and pain there is concerned the area may need incised and drained and therefore she presents for evaluation [facility] Medical History Acid reflux disease Acquired saddle nose deformity Airway obstruction, anatomic Alcohol use Anxiety Arthritis Asthma Back pain Back problem Bilateral carpal tunnel syndrome Bladder infection Chronic headaches Chronic neck pain Contusion of left eyelid and periocular area, initial encounter Contusion of nose, initial encounter Contusion of right eyelid and periocular area, sequela COPD (chronic obstructive pulmonary disease) Depression Deviated nasal septum Diabetes Difficulty swallowing Dysphagia Fall (on)(from) sideDomo Safety curb, initial encounter Fall at home Fracture of orbital floor, blow-out, right, closed Fracture of orbital floor, right side, sequela Gallstones Gastric reflux Headache Hearing problem History of edema History of falling History of IBS History of pain when walking Hyperlipidemia Hypertension Injury of head and neck Left knee pain Marijuana use Migraine headache Nasal septal perforation Nausea and vomiting Other specified disorders of nose and nasal sinuses Rheumatoid arteritis Seasonal allergies Shortness of breath on exertion Smoker Vision problems Home Medications ?Medication ?Instructions ?Recorded ?Last Taken ?Type diphenhydramine HCl 25 mg capsule 50 mg (2 x 25 mg) PO TID PRN PRN 09/19/19 Unknown Rx Rash/Topical Irritation #14 caps hydrocortisone 2.5 % topical cream 1 applic topical TID PRN PRN 09/19/19 Unknown Rx Rash/Topical Irritation #1 tube dupilumab 300 mg/2 mL subcutaneous 300 mg subcut Q2W 04/29/22 Unknown History pen injector (Dupixent) levonorgestrel 21 mcg/24 hr (up to 1 device intrauterine ONCE 04/29/22 Unknown History 8 years) 52 mg intrauterine device (Mirena) albuterol sulfate 2.5 mg/3 mL 2.5 mg (3 mL) inhalation Q4H PRN 04/27/23 Unknown Rx (0.083 %) solution for nebulization PRN Dyspnea #30 vials albuterol sulfate 90 mcg/actuation 1 - 2 puff inhalation Q4H PRN PRN 04/27/23 Unknown Rx aerosol inhaler Wheezing #8.5 grams atorvastatin 10 mg tablet 40 mg (4 x 10 mg) PO QHS 04/27/23 Unknown Rx CHOLESTEROL #30 tabs baclofen 10 mg tablet 10 mg PO BID PRN MUSCLE RELAX 30 04/27/23 Unknown Rx days #30 tabs buspirone 5 mg tablet 5 mg PO TID PRN Anxiety #30 tabs 04/27/23 Unknown Rx escitalopram oxalate 20 mg tablet 20 mg PO DAILY #30 tabs 04/27/23 Unknown Rx loperamide 2 mg capsule 2 mg PO Q8H PRN loose stool #30 04/27/23 Unknown Rx caps primidone 50 mg tablet 200 mg (4 x 50 mg) PO QHS #30 tabs 04/27/23 Unknown Rx fenofibrate 54 mg tablet 54 mg PO DAILY #30 tabs 05/01/23 Unknown Rx blood sugar diagnostic (Accu-Chek #100 ea 05/14/23 Unknown Rx SmartView Test Strips) gabapentin 400 mg capsule 400 mg PO TID nerve pain 30 days 05/14/23 Unknown Rx #90 caps cholecalciferol (vitamin D3) 50 50 mcg PO DAILY #30 caps 06/23/23 Unknown Rx mcg (2,000 unit) capsule evolocumab 140 mg/mL subcutaneous 140 mg subcut Q2W #1 mL 06/23/23 Unknown Rx pen injector furosemide 40 mg tablet 40 mg PO DAILY PRN edema #30 tabs 06/23/23 Unknown Rx potassium chloride 20 mEq 20 meq PO QDAY 06/23/23 Unknown History tablet,extended release glimepiride 2 mg tablet 2 mg PO QAM #90 tabs 06/29/23 Unknown Rx denosumab 60 mg/mL subcutaneous 60 mg subcut [id number] #1 mL 07/28/23 Unknown Rx syringe (Prolia) famotidine 20 mg tablet 20 mg PO QHS #90 tabs 08/12/23 Unknown Rx pantoprazole 40 mg tablet,delayed 40 mg PO DAILY #30 tabs 08/12/23 Unknown Rx release clindamycin HCl 300 mg capsule 300 mg PO 4X/DAY 7 days #28 08/17/23 Unknown Rx (Cleocin HCl) CAPSULES oxycodone-acetaminophen 5 mg-325 1 tab PO Q6H PRN pain 3 days #12 08/17/23 Unknown Rx mg tablet (Percocet) tabs Allergy/AdvReac Type Severity Reaction Status Date / Time bee venom protein (honey bee) Allergy Angioedema Verified 06/23/23 10:02 mold Allergy Itching Verified 06/23/23 10:02 naproxen Allergy Nausea Verified 06/23/23 10:02 aloe vera (From Flexall) AdvReac Severe Nausea/Vom/ Verified 06/23/23 10:02 Diarrhea menthol (From Flexall) AdvReac Severe Nausea/Vom/ Verified 06/23/23 10:02 Diarrhea vitamin E (d-alpha AdvReac Severe Nausea/Vom/ Verified 06/23/23 10:02 tocopherol) (From Flexall) Diarrhea amoxicillin AdvReac Upset Verified 06/23/23 10:02 Stomach guaifenesin (From Robitussin) AdvReac Nausea Verified 06/23/23 10:02 shrimp AdvReac Vomiting Verified 06/23/23 10:02 Sulfa (Sulfonamide AdvReac Vomiting Verified 06/23/23 10:02 Antibiotics) Family History Unknown No problems noted. Surgical History Closed fracture of right orbital floor H/O section History of cholecystectomy History of nasal septoplasty History of nasal surgery Hx of tubal ligation Social History household members: family current occupational status: unemployed Smoking Status: Current every day smoker tobacco type: cigarettes alcohol intake: never substance use type: marijuana what type of physical activity do you participate in: walking seatbelt use: always do you feel safe at home: Yes additional social history: SUN EXPOSURE: FREQUENTLY ROS ROS ED Constitutional Constitutional ED: Denies chills or fever(s) ENT ENT ED: Denies sore throat Cardiovascular Cardiovascular: Denies chest pain Respiratory/Chest Respiratory/Chest: Denies cough or dyspnea Gastrointestinal Gastrointestinal: Denies abdominal pain, diarrhea, nausea or vomiting Genitourinary Genitourinary ED: Denies dysuria Musculoskeletal Musculoskeletal: Denies myalgias Integumentary Reports abscess Neurologic Neurologic: Denies headache(s) Hematologic/Lymphatic Hematologic/Lymphatic: Denies easy bleeding or easy bruising EXAM Physical Exam Const Vital Signs: 08/17/23 04:44 08/17/23 06:22 Temperature 97.9 F 97.8 F Temperature Source Temporal Pulse Rate 95 95 Respiratory Rate 16 20 H Blood Pressure 141/67 H 114/67 Blood Pressure Mean 91 82 Pulse Ox 97 99 Oxygen Delivery Method Room Air Positive well nourished, well developed and obese General Appearance ED: well developed Nutritional Appearance: obese HEENT HEENT Narrative: Normocephalic atraumatic Eyes PERRL and EOMs intact bilaterally General Eye ED: Negative for scleral icterus Neck supple Neck Narrative: No nuchal rigidity or meningeal sign Resp normal respiratory effort and clear to auscultation bilaterally Cardio regular rate and regular rhythm GI normal to inspection, nondistended, normoactive bowel sounds, non-tender, non- distended and no masses Auscultation: normoactive bowel sounds Palpation: soft Narrative: Along the left posterior perineum there is a 1 x 1 cm area of erythema warmth and fluctuance consistent with abscess. No active discharge/drainage noted. No lymphangitic streaking. No crepitance palpated to suggest German's gangrene Extremity normal to inspection Neuro oriented x3, CN's II-XII intact bilaterally and no sensory deficits noted Sensorium / Orientation: alert Motor Exam: strength 5/5 throughout Psych mental status grossly normal Skin Skin Narrative: Soft tissue changes in the perineum consistent with abscess as documented above MDM MDM MDM Narrative Medical decision making narrative: Patient presented to the ER slightly hypertensive but otherwise with stable vitals. She reported a lesion in the perineum present for the last 5 to 7 days that has increased in size and pain over the last few days. Differential diagnosis is for cellulitis versus abscess versus German's gangrene. The patient does not have any crepitance palpated and her vitals are stable therefore concern for necrotizing or gas producing infection such as German's gangrene is low and I do not feel there is need for imaging or laboratory studies. The physical exam and history is most consistent with increasing abscess. Therefore at this time the area will be incised and drained as document below. As the patient is mildly immunosuppressed secondary to diabetes she will be placed on antibiotics but as physical exam shows no signs of systemic infection I do not feel there is need for further workup and she is otherwise safe for discharge with antibiotics History & Record Review Discussion w/independent historian: Patient Discharge Plan Triage Chief Complaint: Abscess ED Provider: Josias Garcia Dx/Rx/DC Orders Clinical Impression: Cutaneous abscess of perineum, Diabetes mellitus, type II, Hypertension Instructions: ED Abscess Incision And Drainage Prescriptions: New clindamycin HCl [Cleocin HCl] 300 mg capsule 300 mg PO 4X/DAY 7 Days Qty: 28 0RF oxycodone-acetaminophen [Percocet] 5-325 mg tablet 1 tab PO Q6H PRN (Reason: pain) 3 Days Qty: 12 0RF No Action Dupixent Pen 300 mg/2 mL pen injector 300 mg subcut Q2W Mirena 21 mcg/24 hours (8 yrs) 52 mg intrauterine device 1 device intrauterine ONCE Rx Instructions: as a single dose atorvastatin 10 mg tablet 40 mg PO QHS Qty: 30 1RF baclofen 10 mg tablet 10 mg PO BID PRN (Reason: MUSCLE RELAX) 30 Days Qty: 30 1RF buspirone 5 mg tablet 5 mg PO TID PRN (Reason: Anxiety) Qty: 30 1RF escitalopram oxalate 20 mg tablet 20 mg PO DAILY Qty: 30 1RF albuterol sulfate 90 mcg/actuation HFA aerosol inhaler 1 - 2 puff INHALATION Q4H PRN PRN (Reason: Wheezing) Qty: 8.5 1RF primidone 50 mg tablet 200 mg PO QHS Qty: 30 1RF albuterol sulfate 2.5 mg /3 mL (0.083 %) solution for nebulization 2.5 mg INHALATION Q4H PRN PRN (Reason: Dyspnea) Qty: 30 0RF loperamide 2 mg capsule 2 mg PO Q8H PRN (Reason: loose stool) Qty: 30 0RF potassium chloride 20 mEq tablet extended release 20 meq PO QDAY evolocumab 140 mg/mL pen injector 140 mg subcut Q2W Qty: 1 6RF furosemide 40 mg tablet 40 mg PO DAILY PRN (Reason: edema) Qty: 30 1RF cholecalciferol (vitamin D3) 50 mcg (2,000 unit) capsule 50 mcg PO DAILY Qty: 30 1RF (DME) Accu-Chek SmartView Test Strip Strip See Rx Instructions .Route Qty: 100 0RF Rx Instructions: As directed gabapentin 400 mg capsule 400 mg PO TID 30 Days Qty: 90 1RF diphenhydramine HCl 25 MG capsule 50 mg PO TID PRN PRN (Reason: Rash/Topical Irritation) Qty: 14 0RF hydrocortisone 1 APPLIC cream 1 applic topical TID PRN PRN (Reason: Rash/Topical Irritation) Qty: 1 0RF fenofibrate 54 mg tablet 54 mg PO DAILY Qty: 30 1RF glimepiride 2 mg tablet 2 mg PO QAM Qty: 90 0RF Rx Instructions: administer with breakfast Prolia 60 mg/mL syringe 60 mg subcut [id number] Qty: 1 1RF famotidine 20 mg tablet 20 mg PO QHS Qty: 90 0RF pantoprazole 40 mg tablet,delayed release (DR/EC) 40 mg PO DAILY Qty: 30 1RF Primary Care Provider: Litzy Garcia Referrals: Litzy Garcia, [employer]ACHINE [employer]TENA[employer]CE SERVICER[employer] [Primary Care Provider] - Print Language: Portuguese Disposition Disposition: Home, Self Care Discharge Date/Time: 08/17/23 06:25
[2023-08-17] MEDS: Clindamycin HCl 150 MG Capsule 300 MG PO (06:21)
[2023-08-17 06:22] VITALS: BP 114/67; PULSE 95; RESP 20; TEMP 36.6; O2SAT 99
== END 2023-08-17 06:25 | disposition home or self-care (01) ==
PROVIDERS: Emergency Provider Emergency Medicine; PCP Nurse Practitioner; Visit Provider Emergency Medicine
DX: L02.215 Cutaneous abscess of perineum (principal); J44.9 Chronic obstructive pulmonary disease, unspecified; E11.9 Type 2 diabetes mellitus without complications; F12.90 Cannabis use, unspecified, uncomplicated; I10 Essential (primary) hypertension; F17.210 Nicotine dependence, cigarettes, uncomplicated
CPT/HCPCS: 96372; 99283

== ENCOUNTER 2023-10-10 20:07 | Emergency (ER) | payer MEDICARE, MEDICAID, SELFPAY ==
[2023-10-10 20:10] VITALS: BP 202/179; PULSE 88; RESP 16; TEMP 36; O2SAT 98; BMI 25.0
--- NOTE | 2023-10-10 20:14 | EX.ED.DYSGE1 ---
HPI <KATHLEEN Wakefield - Last Filed: 10/10/23 21:30> History of Present Illness Chief Complaint: Abscess Narrative Narrative: Patient is a 48-year-old female with history of tobacco use, hyperlipidemia hypertension GERD anxiety, diabetes who presents to the emergency department with a abscess to her right peroneal area. Patient has been getting these multiple times over the last several years. She usually is able to get on the drain however she cannot drain this 1. Patient denies any fever or chills, here for evaluation. Patient she is noticed that for the last 3 to 4 days. PFS <KATHLEEN Wakefield - Last Filed: 10/10/23 21:30> [facility] Medical History Acid reflux disease Acquired saddle nose deformity Airway obstruction, anatomic Alcohol use Anxiety Arthritis Asthma Back pain Back problem Bilateral carpal tunnel syndrome Bladder infection Chronic headaches Chronic neck pain Contusion of left eyelid and periocular area, initial encounter Contusion of nose, initial encounter Contusion of right eyelid and periocular area, sequela COPD (chronic obstructive pulmonary disease) Depression Deviated nasal septum Diabetes Difficulty swallowing Dysphagia Fall (on)(from) sidewalk curb, initial encounter Fall at home Fracture of orbital floor, blow-out, right, closed Fracture of orbital floor, right side, sequela Gallstones Gastric reflux Headache Hearing problem History of edema History of falling History of IBS History of pain when walking Hyperlipidemia Hypertension Injury of head and neck Left knee pain Marijuana use Migraine headache Nasal septal perforation Nausea and vomiting Other specified disorders of nose and nasal sinuses Rheumatoid arteritis Seasonal allergies Shortness of breath on exertion Smoker Vision problems Home Medications ?Medication ?Instructions ?Recorded ?Last Taken ?Type diphenhydramine HCl 25 mg capsule 50 mg (2 x 25 mg) PO TID PRN PRN 09/19/19 Unknown Rx Rash/Topical Irritation #14 caps hydrocortisone 2.5 % topical cream 1 applic topical TID PRN PRN 09/19/19 Unknown Rx Rash/Topical Irritation #1 tube dupilumab 300 mg/2 mL subcutaneous 300 mg subcut Q2W 04/29/22 Unknown History pen injector (Dupixent) levonorgestrel 21 mcg/24 hr (up to 1 device intrauterine ONCE 04/29/22 Unknown History 8 years) 52 mg intrauterine device (Mirena) albuterol sulfate 2.5 mg/3 mL 2.5 mg (3 mL) inhalation Q4H PRN 04/27/23 Unknown Rx (0.083 %) solution for nebulization PRN Dyspnea #30 vials albuterol sulfate 90 mcg/actuation 1 - 2 puff inhalation Q4H PRN PRN 04/27/23 Unknown Rx aerosol inhaler Wheezing #8.5 grams atorvastatin 10 mg tablet 40 mg (4 x 10 mg) PO QHS 04/27/23 Unknown Rx CHOLESTEROL #30 tabs baclofen 10 mg tablet 10 mg PO BID PRN MUSCLE RELAX 30 04/27/23 Unknown Rx days #30 tabs buspirone 5 mg tablet 5 mg PO TID PRN Anxiety #30 tabs 04/27/23 Unknown Rx escitalopram oxalate 20 mg tablet 20 mg PO DAILY #30 tabs 04/27/23 Unknown Rx loperamide 2 mg capsule 2 mg PO Q8H PRN loose stool #30 04/27/23 Unknown Rx caps primidone 50 mg tablet 200 mg (4 x 50 mg) PO QHS #30 tabs 04/27/23 Unknown Rx fenofibrate 54 mg tablet 54 mg PO DAILY #30 tabs 05/01/23 Unknown Rx cholecalciferol (vitamin D3) 50 50 mcg PO DAILY #30 caps 06/23/23 Unknown Rx mcg (2,000 unit) capsule evolocumab 140 mg/mL subcutaneous 140 mg subcut Q2W #1 mL 06/23/23 Unknown Rx pen injector denosumab 60 mg/mL subcutaneous 60 mg subcut [id number] #1 mL 07/28/23 Unknown Rx syringe (Prolia) famotidine 20 mg tablet 20 mg PO QHS #90 tabs 08/12/23 Unknown Rx pantoprazole 40 mg tablet,delayed 40 mg PO DAILY #30 tabs 08/12/23 Unknown Rx release clindamycin HCl 300 mg capsule 300 mg PO 4X/DAY 7 days #28 08/17/23 Unknown Rx (Cleocin HCl) CAPSULES oxycodone-acetaminophen 5 mg-325 1 tab PO Q6H PRN pain 3 days #12 08/17/23 Unknown Rx mg tablet (Percocet) tabs glimepiride 2 mg tablet 2 mg PO BID #180 tabs 08/21/23 Unknown Rx blood sugar diagnostic (Accu-Chek #100 ea 09/11/23 Unknown Rx Guide test strips) gabapentin 400 mg capsule 400 mg PO TID nerve pain 30 days 09/11/23 Unknown Rx #90 caps furosemide 40 mg tablet 40 mg PO DAILY edema #30 tabs 09/12/23 Unknown Rx potassium chloride 20 mEq 20 meq PO QDAY #90 tabs 09/17/23 Unknown Rx tablet,extended release clindamycin HCl 300 mg capsule 300 mg PO Q6H #40 CAPSULES 10/10/23 Unknown Rx (Cleocin HCl) Allergy/AdvReac Type Severity Reaction Status Date / Time bee venom protein (honey bee) Allergy Angioedema Verified 10/10/23 20:10 mold Allergy Itching Verified 10/10/23 20:10 naproxen Allergy Nausea Verified 10/10/23 20:10 aloe vera (From Flexall) AdvReac Severe Nausea/Vom/ Verified 10/10/23 20:10 Diarrhea menthol (From Flexall) AdvReac Severe Nausea/Vom/ Verified 10/10/23 20:10 Diarrhea vitamin E (d-alpha AdvReac Severe Nausea/Vom/ Verified 10/10/23 20:10 tocopherol) (From Flexall) Diarrhea amoxicillin AdvReac Upset Verified 10/10/23 20:10 Stomach guaifenesin (From Robitussin) AdvReac Nausea Verified 10/10/23 20:10 Sulfa (Sulfonamide AdvReac Vomiting Verified 10/10/23 20:10 Antibiotics) Family History Unknown No problems noted. Surgical History Closed fracture of right orbital floor H/O section History of cholecystectomy History of nasal septoplasty History of nasal surgery Hx of tubal ligation Social History household members: family current occupational status: unemployed Smoking Status: Current every day smoker tobacco type: cigarettes alcohol intake: never substance use type: marijuana what type of physical activity do you participate in: walking seatbelt use: always do you feel safe at home: Yes additional social history: SUN EXPOSURE: FREQUENTLY ROS <KATHLEEN Wakefield - Last Filed: 10/10/23 21:30> ROS ED ROS Narrative Constitutional: Negative for fever, chills, weight loss, weakness Eyes: Negative for vision loss, vision change, double vision ENT: Negative for any sore throat, ear pain, congestion Cardiovascular: Negative for any chest pain, tightness, palpitations Respiratory: Negative for any cough, sputum production, hemoptysis, dyspnea, dyspnea on exertion, orthopnea Gastrointestinal: Negative for any abdominal pain, nausea, vomiting, diarrhea, constipation, blood in stool, blood in vomit : Negative for any urinary frequency, dysuria, retention, blood in urine Muscle skeletal: Negative for any neck pain, back pain Neurological: Negative for any headache, syncope, dizziness Skin: Negative for any rashes, itching, abrasions, lacerations. Positive for abscess to the right perineal area Psychiatric: Negative for any depression, anxiety, stress, suicidal ideation, homicidal ideation Hematologic: Negative for any excessive bruising, easy bleeding EXAM <KATHLEEN Wakefield - Last Filed: 10/10/23 21:30> Physical Exam Narrative Exam Narrative: Vital signs reviewed. Extremities: No peripheral edema, no signs of gross trauma or deformity. Active full range of motion of all extremities. Neuro: Cranial nerves II through XII intact, no focal neurological deficits. Skin: Clean dry and intact with no rash, purpura, petechiae, vesicles or pustules. Patient does have a small abscess to the right perineal area, this is not a Bartholin cyst. There is no involvement of the vagina, labial folds. There is no obvious drainage. Slight surrounding cellulitis. Backs/flank: No CVA tenderness, no midline spinal tenderness, no deformity. Psych: Normal mood and affect. No SI, HI or acute psychosis. Perineal: Completed with female nurse pump runner, patient does have a small area to the right side of her perineal area. No obvious drainage. Const Vital Signs: 10/10/23 20:10 10/10/23 21:51 Temperature 96.8 F L 97.1 F L Temperature Source Temporal Pulse Rate 88 79 Respiratory Rate 16 18 Blood Pressure 202/179 H 125/84 H Blood Pressure Mean 186 97 Pulse Ox 98 98 Oxygen Delivery Method Room Air <Dr. Luciano Mayes DO - Last Filed: 10/10/23 23:28> Physical Exam Const Vital Signs: 10/10/23 20:10 10/10/23 21:51 Temperature 96.8 F L 97.1 F L Temperature Source Temporal Pulse Rate 88 79 Respiratory Rate 16 18 Blood Pressure 202/179 H 125/84 H Blood Pressure Mean 186 97 Pulse Ox 98 98 Oxygen Delivery Method Room Air [facility] <Micah AliciaKATHLEEN phillips - Last Filed: 10/10/23 21:30> [facility] Treatment and Re-Evaluation :: Differential diagnosis includes however is not limited to: Abscess, cellulitis, sepsis, Bartholin cyst, rectal abscess Patient appears to be in no obvious distress vital signs are stable, patient presents to the emergency department with complaints of a abscess to the perineal area. During my evaluation, a female nurse pump runner was with me at all times. Patient was given IM dose of morphine, I will then numb the area and make an incision. Patient was given IM morphine, patient tolerated the numbing medicine well. I was able to place a 0.5 cm incision, slight amount of yellow drainage was expelled however most of it was bloody. I will not be packing this area as it is small. Patient replaced on clindamycin giving her first dose today. Instructed to use warm compresses, sitz bath's. She will return for any worsening symptoms. <Dr. Luciano Mayes DO - Last Filed: 10/10/23 23:28> [facility] Narrative Medical decision making narrative: I have personally performed a face to face assessment of the patient and have reviewed the SHI Note. I performed a substantive portion of the visit including all aspects of the following. My mendez findings include: History is [patient presents with concern for abscess in her perineum. Patient is noticed a lump over the last 3 to 4 days. She has been trying to squeeze it but not having any success getting into express. She denies fevers chills or sweats. Patient states she gets these frequently. She often has them incised and drained. Patient is diabetic.] Exam is [HEENT-PERRLA, EOMI. Cranial nerves II through XII grossly intact. TMs clear. Mucous membranes moist. No adenopathy. Cardiovascular-regular rate and rhythm without murmur or ectopy Lungs-clear to auscultation, chest wall stable without crepitus or subcu emphysema Abdomen-normoactive bowel sounds, soft, nontender, no rebound or rigidity, no peritoneal signs. exam-evaluation of the perineum does reveal a small soft tissue mass measuring approximately 2 cm in diameter in the right perineal region and does not involve the labia. Slightly tender to palpation. Minimal fluctuance in the center. No cellulitic changes. Extremities-intact ?4, normal range of motion, normal pulses, atraumatic] Medical Decison Making [patient presents with soft tissue abscess near the perineum. She is requesting incision and drainage. Patient was seen in conjunction with the physician clinical assistant professor who performed incision and drainage. He see his procedure note. Patient will be started on clindamycin. Advised to follow-up with primary care physician within next 3 to 5 days for wound check. Advised return if increasing pain, redness, swelling, or purulent drainage.] Other additions or changes: [None] Discharge Plan Triage Chief Complaint: Abscess ED Midlevel Provider: Micah Houser ED Provider: Luciano Mayes Dx/Rx/DC Orders Clinical Impression: Abscess Instructions: Abscess Drainage, ED Abscess Incision And Drainage Prescriptions: New clindamycin HCl [Cleocin HCl] 300 mg capsule 300 mg PO Q6H Qty: 40 0RF No Action Dupixent Pen 300 mg/2 mL pen injector 300 mg subcut Q2W Mirena 21 mcg/24 hours (8 yrs) 52 mg intrauterine device 1 device intrauterine ONCE Rx Instructions: as a single dose atorvastatin 10 mg tablet 40 mg PO QHS Qty: 30 1RF baclofen 10 mg tablet 10 mg PO BID PRN (Reason: MUSCLE RELAX) 30 Days Qty: 30 1RF buspirone 5 mg tablet 5 mg PO TID PRN (Reason: Anxiety) Qty: 30 1RF escitalopram oxalate 20 mg tablet 20 mg PO DAILY Qty: 30 1RF albuterol sulfate 90 mcg/actuation HFA aerosol inhaler 1 - 2 puff INHALATION Q4H PRN PRN (Reason: Wheezing) Qty: 8.5 1RF primidone 50 mg tablet 200 mg PO QHS Qty: 30 1RF albuterol sulfate 2.5 mg /3 mL (0.083 %) solution for nebulization 2.5 mg INHALATION Q4H PRN PRN (Reason: Dyspnea) Qty: 30 0RF loperamide 2 mg capsule 2 mg PO Q8H PRN (Reason: loose stool) Qty: 30 0RF evolocumab 140 mg/mL pen injector 140 mg subcut Q2W Qty: 1 6RF cholecalciferol (vitamin D3) 50 mcg (2,000 unit) capsule 50 mcg PO DAILY Qty: 30 1RF diphenhydramine HCl 25 MG capsule 50 mg PO TID PRN PRN (Reason: Rash/Topical Irritation) Qty: 14 0RF hydrocortisone 1 APPLIC cream 1 applic topical TID PRN PRN (Reason: Rash/Topical Irritation) Qty: 1 0RF clindamycin HCl [Cleocin HCl] 300 mg capsule 300 mg PO 4X/DAY 7 Days Qty: 28 0RF oxycodone-acetaminophen [Percocet] 5-325 mg tablet 1 tab PO Q6H PRN (Reason: pain) 3 Days Qty: 12 0RF fenofibrate 54 mg tablet 54 mg PO DAILY Qty: 30 1RF Prolia 60 mg/mL syringe 60 mg subcut [id number] Qty: 1 1RF famotidine 20 mg tablet 20 mg PO QHS Qty: 90 0RF pantoprazole 40 mg tablet,delayed release (DR/EC) 40 mg PO DAILY Qty: 30 1RF glimepiride 2 mg tablet 2 mg PO BID Qty: 180 0RF Rx Instructions: administer with breakfast and dinner gabapentin 400 mg capsule 400 mg PO TID 30 Days Qty: 90 1RF (DME) Accu-Chek Guide test strips Strip See Rx Instructions .Route Qty: 100 3RF Rx Instructions: As directed to check BG up to 4 times daily for DMII furosemide 40 mg tablet 40 mg PO DAILY Qty: 30 1RF potassium chloride 20 mEq tablet extended release 20 meq PO QDAY Qty: 90 1RF Primary Care Provider: Litzy Garcia Referrals: Litzy Garcia, [facility] [Primary Care Provider] - Activity Restrictions/Additional Instructions: Continue to use warm compresses, take the antibiotics until finished. Print Language: Yoruba Disposition Disposition: Home, Self Care Discharge Date/Time: 10/10/23 21:53
[2023-10-10] MEDS: Ondansetron ODT 4 MG Tablet PO (21:00)
[2023-10-10] MEDS: Morphine 4 MG/ML Syringe IM (21:00)
[2023-10-10] MEDS: Lidocaine 1% (20 ml mdv) 20 ML Vial 3 ML INFILT (21:00)
[2023-10-10 21:51] VITALS: BP 125/84; PULSE 79; RESP 18; TEMP 36.2; O2SAT 98
[2023-10-10] MEDS: Clindamycin HCl 150 MG Capsule 300 MG PO (21:52)
== END 2023-10-10 21:53 | disposition home or self-care (01) ==
PROVIDERS: Emergency Provider Emergency Medicine; PCP Nurse Practitioner; Visit Provider Emergency Medicine
DX: L02.215 Cutaneous abscess of perineum (principal); J44.9 Chronic obstructive pulmonary disease, unspecified; E11.9 Type 2 diabetes mellitus without complications; E78.5 Hyperlipidemia, unspecified; F17.210 Nicotine dependence, cigarettes, uncomplicated; Z79.84 Long term (current) use of oral hypoglycemic drugs; Z79.899 Other long term (current) drug therapy
CPT/HCPCS: 56405; 96372; 99282

== ENCOUNTER 2023-10-27 18:41 | Emergency (ER) | payer MEDICARE, MEDICAID, SELFPAY ==
[2023-10-27 18:42] VITALS: BP 118/91; PULSE 99; RESP 22; TEMP 36.2; O2SAT 99; BMI 24.3
--- NOTE | 2023-10-27 19:35 | EX.ED.DYSGE1 ---
HPI History of Present Illness Chief Complaint: Abscess Informant: patient Onset/Context/Timing Onset: Weeks (1) Context: Gradual Onset Timing: Waxes and wanes Quality: Burning Location: Labia Worsened by: Nothing Relieved by: Nothing Narrative Narrative: Patient presents with an abscess in her genital area that has been getting worse over the past week. Patient states it is gradually getting worse. Patient states it has been waxing and waning. Patient states she has been using some topical ointment with minimal relief. Patient describes the pain as burning. Patient states nothing makes it worse and nothing makes it better. Patient denies any fevers or chills. Patient denies any discharge or drainage. Patient denies any urinary complaints. Patient denies any abnormal vaginal bleeding or discharge. [facility] Medical History Hyperlipidemia Left knee pain Marijuana use Alcohol use Depression Back pain Migraine headache Injury of head and neck Difficulty swallowing History of IBS Gastric reflux Smoker COPD (chronic obstructive pulmonary disease) Shortness of breath on exertion History of pain when walking History of edema Hypertension Fall at home Contusion of nose, initial encounter Nausea and vomiting Dysphagia Acquired saddle nose deformity History of falling Bilateral carpal tunnel syndrome Headache Chronic neck pain Fall (on)(from) sidewalk curb, initial encounter Contusion of left eyelid and periocular area, initial encounter Nasal septal perforation Contusion of right eyelid and periocular area, sequela Fracture of orbital floor, right side, sequela Airway obstruction, anatomic Other specified disorders of nose and nasal sinuses Deviated nasal septum Fracture of orbital floor, blow-out, right, closed Vision problems Rheumatoid arteritis Acid reflux disease Hearing problem Chronic headaches Gallstones Anxiety Diabetes Bladder infection Back problem Asthma Arthritis Seasonal allergies Home Medications ?Medication ?Instructions ?Recorded ?Last Taken ?Type diphenhydramine HCl 25 mg capsule 50 mg (2 x 25 mg) PO TID PRN PRN 09/19/19 Unknown Rx Rash/Topical Irritation #14 caps hydrocortisone 2.5 % topical cream 1 applic topical TID PRN PRN 09/19/19 Unknown Rx Rash/Topical Irritation #1 tube dupilumab 300 mg/2 mL subcutaneous 300 mg subcut Q2W 04/29/22 Unknown History pen injector (Dupixent) levonorgestrel 21 mcg/24 hr (up to 1 device intrauterine ONCE 04/29/22 Unknown History 8 years) 52 mg intrauterine device (Mirena) albuterol sulfate 2.5 mg/3 mL 2.5 mg (3 mL) inhalation Q4H PRN 04/27/23 Unknown Rx (0.083 %) solution for nebulization PRN Dyspnea #30 vials albuterol sulfate 90 mcg/actuation 1 - 2 puff inhalation Q4H PRN PRN 04/27/23 Unknown Rx aerosol inhaler Wheezing #8.5 grams atorvastatin 10 mg tablet 40 mg (4 x 10 mg) PO QHS 04/27/23 Unknown Rx CHOLESTEROL #30 tabs baclofen 10 mg tablet 10 mg PO BID PRN MUSCLE RELAX 30 04/27/23 Unknown Rx days #30 tabs buspirone 5 mg tablet 5 mg PO TID PRN Anxiety #30 tabs 04/27/23 Unknown Rx escitalopram oxalate 20 mg tablet 20 mg PO DAILY #30 tabs 04/27/23 Unknown Rx loperamide 2 mg capsule 2 mg PO Q8H PRN loose stool #30 04/27/23 Unknown Rx caps primidone 50 mg tablet 200 mg (4 x 50 mg) PO QHS #30 tabs 04/27/23 Unknown Rx fenofibrate 54 mg tablet 54 mg PO DAILY #30 tabs 05/01/23 Unknown Rx cholecalciferol (vitamin D3) 50 50 mcg PO DAILY #30 caps 06/23/23 Unknown Rx mcg (2,000 unit) capsule evolocumab 140 mg/mL subcutaneous 140 mg subcut Q2W #1 mL 06/23/23 Unknown Rx pen injector denosumab 60 mg/mL subcutaneous 60 mg subcut [id number] #1 mL 07/28/23 Unknown Rx syringe (Prolia) famotidine 20 mg tablet 20 mg PO QHS #90 tabs 08/12/23 Unknown Rx pantoprazole 40 mg tablet,delayed 40 mg PO DAILY #30 tabs 08/12/23 Unknown Rx release clindamycin HCl 300 mg capsule 300 mg PO 4X/DAY 7 days #28 08/17/23 Unknown Rx (Cleocin HCl) CAPSULES oxycodone-acetaminophen 5 mg-325 1 tab PO Q6H PRN pain 3 days #12 08/17/23 Unknown Rx mg tablet (Percocet) tabs glimepiride 2 mg tablet 2 mg PO BID #180 tabs 08/21/23 Unknown Rx blood sugar diagnostic (Accu-Chek #100 ea 09/11/23 Unknown Rx Guide test strips) gabapentin 400 mg capsule 400 mg PO TID nerve pain 30 days 09/11/23 Unknown Rx #90 caps furosemide 40 mg tablet 40 mg PO DAILY edema #30 tabs 09/12/23 Unknown Rx potassium chloride 20 mEq 20 meq PO QDAY #90 tabs 09/17/23 Unknown Rx tablet,extended release clindamycin HCl 300 mg capsule 300 mg PO Q6H #40 CAPSULES 10/10/23 Unknown Rx (Cleocin HCl) clindamycin HCl 300 mg capsule 300 mg PO Q6H #40 CAPSULES 10/27/23 Unknown Rx (Cleocin HCl) tramadol 50 mg tablet 50 mg PO Q4H PRN PRN Pain 3 days 10/27/23 Unknown Rx #20 tabs Allergy/AdvReac Type Severity Reaction Status Date / Time bee venom protein (honey bee) Allergy Angioedema Verified 10/10/23 20:10 mold Allergy Itching Verified 10/10/23 20:10 naproxen Allergy Nausea Verified 10/10/23 20:10 aloe vera (From Flexall) AdvReac Severe Nausea/Vom/ Verified 10/10/23 20:10 Diarrhea menthol (From Flexall) AdvReac Severe Nausea/Vom/ Verified 10/10/23 20:10 Diarrhea vitamin E (d-alpha AdvReac Severe Nausea/Vom/ Verified 10/10/23 20:10 tocopherol) (From Flexall) Diarrhea amoxicillin AdvReac Upset Verified 10/10/23 20:10 Stomach guaifenesin (From Robitussin) AdvReac Nausea Verified 10/10/23 20:10 Sulfa (Sulfonamide AdvReac Vomiting Verified 10/10/23 20:10 Antibiotics) Family History Unknown No problems noted. Surgical History Hx of tubal ligation History of nasal surgery Closed fracture of right orbital floor History of nasal septoplasty H/O section History of cholecystectomy Social History household members: family current occupational status: unemployed Smoking Status: Current every day smoker tobacco type: cigarettes alcohol intake: never substance use type: marijuana what type of physical activity do you participate in: walking seatbelt use: always do you feel safe at home: Yes additional social history: SUN EXPOSURE: FREQUENTLY ROS ROS ED Constitutional Constitutional ED: Denies chills or fever(s) Eyes Eyes: Denies blurry vision or change in vision ENT ENT ED: Denies rhinorrhea or sore throat Cardiovascular Cardiovascular: Denies chest pain or palpitations Respiratory/Chest Respiratory/Chest: Denies cough or dyspnea Gastrointestinal Gastrointestinal: Denies nausea or vomiting Genitourinary Genitourinary ED: Denies dysuria or hematuria Musculoskeletal Musculoskeletal: Reports back pain; Denies neck pain Integumentary Reports abscess; Denies rash Neurologic Neurologic: Denies headache(s) or weakness Allergic/Immunologic Allergic/Immunologic ED: Denies mouth swelling or urticaria EXAM Physical Exam Const Vital Signs: 10/27/23 18:42 Temperature 97.2 F L Temperature Source Temporal Pulse Rate 99 Respiratory Rate 22 H Blood Pressure 118/91 H Blood Pressure Mean 100 Pulse Ox 99 Oxygen Delivery Method Room Air Positive well nourished and well developed General Appearance ED: well developed and NAD HEENT Reports moist mucous membranes Neck supple and no JVD Resp normal respiratory effort and clear to auscultation bilaterally Cardio regular rate and regular rhythm GI non-tender and non-distended Palpation: soft Narrative: Pelvic exam was performed. There is a female nurse felled seam operator present. There is an abscess over the left labia majora and in the inguinal area. There is no active discharge or drainage. There is some mild fluctuance. There is induration and mild erythema. Neuro oriented x3, CN's II-XII intact bilaterally and no sensory deficits noted Sensorium / Orientation: alert Motor Exam: strength 5/5 throughout Psych mental status grossly normal MDM MDM MDM Narrative Medical decision making narrative: Patient was given a dose of morphine here. Patient was advised of the need for incision and drainage. The procedure was explained to the patient. Patient states she has had that done before and had no further questions. There was a female nurse present in the room during the procedure. The area was cleaned with chlorhexidine. The areas were anesthetized with 1% lidocaine locally. Small linear incisions were made over the left labia majora and in the left inguinal area. There was a large amount of purulent drainage expressed from the inguinal area. There is a mild amount of purulent drainage expressed from the labia majora. Curved hemostats were inserted and loculations were broken up. The wounds were left open for continued drainage. Patient was instructed to use warm sitz bath's and warm compresses. Patient was given a dose of clindamycin here. Patient was given prescription for clindamycin. Patient was given a prescription for a short course of tramadol. Patient was instructed to follow-up with her primary care physician in 5 to 7 days. Patient understood and was agreeable with the plan. All questions were answered. Discharge Plan Triage Chief Complaint: Abscess ED Provider: Perez Alcazar Dx/Rx/DC Orders Clinical Impression: Abscess of left genital labia, Tobacco use, Diabetes mellitus, type II Instructions: ED Abscess Incision And Drainage Prescriptions: New clindamycin HCl [Cleocin HCl] 300 mg capsule 300 mg PO Q6H Qty: 40 0RF tramadol 50 mg tablet 50 mg PO Q4H PRN PRN (Reason: Pain) 3 Days Qty: 20 0RF No Action Dupixent Pen 300 mg/2 mL pen injector 300 mg subcut Q2W Mirena 21 mcg/24 hours (8 yrs) 52 mg intrauterine device 1 device intrauterine ONCE Rx Instructions: as a single dose atorvastatin 10 mg tablet 40 mg PO QHS Qty: 30 1RF baclofen 10 mg tablet 10 mg PO BID PRN (Reason: MUSCLE RELAX) 30 Days Qty: 30 1RF buspirone 5 mg tablet 5 mg PO TID PRN (Reason: Anxiety) Qty: 30 1RF escitalopram oxalate 20 mg tablet 20 mg PO DAILY Qty: 30 1RF albuterol sulfate 90 mcg/actuation HFA aerosol inhaler 1 - 2 puff INHALATION Q4H PRN PRN (Reason: Wheezing) Qty: 8.5 1RF primidone 50 mg tablet 200 mg PO QHS Qty: 30 1RF albuterol sulfate 2.5 mg /3 mL (0.083 %) solution for nebulization 2.5 mg INHALATION Q4H PRN PRN (Reason: Dyspnea) Qty: 30 0RF loperamide 2 mg capsule 2 mg PO Q8H PRN (Reason: loose stool) Qty: 30 0RF evolocumab 140 mg/mL pen injector 140 mg subcut Q2W Qty: 1 6RF cholecalciferol (vitamin D3) 50 mcg (2,000 unit) capsule 50 mcg PO DAILY Qty: 30 1RF diphenhydramine HCl 25 MG capsule 50 mg PO TID PRN PRN (Reason: Rash/Topical Irritation) Qty: 14 0RF hydrocortisone 1 APPLIC cream 1 applic topical TID PRN PRN (Reason: Rash/Topical Irritation) Qty: 1 0RF clindamycin HCl [Cleocin HCl] 300 mg capsule 300 mg PO Q6H Qty: 40 0RF clindamycin HCl [Cleocin HCl] 300 mg capsule 300 mg PO 4X/DAY 7 Days Qty: 28 0RF oxycodone-acetaminophen [Percocet] 5-325 mg tablet 1 tab PO Q6H PRN (Reason: pain) 3 Days Qty: 12 0RF fenofibrate 54 mg tablet 54 mg PO DAILY Qty: 30 1RF Prolia 60 mg/mL syringe 60 mg subcut [id number] Qty: 1 1RF famotidine 20 mg tablet 20 mg PO QHS Qty: 90 0RF pantoprazole 40 mg tablet,delayed release (DR/EC) 40 mg PO DAILY Qty: 30 1RF glimepiride 2 mg tablet 2 mg PO BID Qty: 180 0RF Rx Instructions: administer with breakfast and dinner gabapentin 400 mg capsule 400 mg PO TID 30 Days Qty: 90 1RF (DME) Accu-Chek Guide test strips Strip See Rx Instructions .Route Qty: 100 3RF Rx Instructions: As directed to check BG up to 4 times daily for DMII furosemide 40 mg tablet 40 mg PO DAILY Qty: 30 1RF potassium chloride 20 mEq tablet extended release 20 meq PO QDAY Qty: 90 1RF Primary Care Provider: Litzy Garcia Referrals: Litzy Garcia NP-C [Primary Care Provider] - 5-7 Days Activity Restrictions/Additional Instructions: Use warm sitz baths and warm compresses to the area. Print Language: Upper Sorbian Disposition Disposition: Home, Self Care
[2023-10-27] MEDS: Morphine 4 MG/ML Syringe IM (19:54)
[2023-10-27] MEDS: Clindamycin HCl 150 MG Capsule 300 MG PO (19:54)
[2023-10-27] MEDS: Lidocaine 1% (20 ml mdv) 20 ML Vial INFILT (19:55)
== END 2023-10-27 22:18 | disposition home or self-care (01) ==
PROVIDERS: Emergency Provider Emergency Medicine; PCP Nurse Practitioner; Visit Provider Emergency Medicine
DX: N76.4 Abscess of vulva (principal); J44.9 Chronic obstructive pulmonary disease, unspecified; E11.9 Type 2 diabetes mellitus without complications; I10 Essential (primary) hypertension; F17.210 Nicotine dependence, cigarettes, uncomplicated; Z79.84 Long term (current) use of oral hypoglycemic drugs; Z79.899 Other long term (current) drug therapy
CPT/HCPCS: 56405; 10060; 96374; 99282

== ENCOUNTER → 2023-11-21 | Outpatient (CLI) | payer MEDICARE, MEDICAID, SELFPAY ==
[2023-11-21 10:07] LABS: Hemoglobin A1c 6.6 % (3.8-5.6)
[2023-11-21 10:35] LABS: Anion Gap 5 (5-15); BUN 5 mg/dL (7-18); BUN/Creat Ratio 7.7 RATIO (10-20); Calcium,Total 8.4 mg/dL (8.5-10.1); Chloride 109 mmol/L (98-107); Cholesterol 230 mg/dL (200); Creatinine, Serum 0.65 mg/dL (0.55-1.02); EST Glomerular Filtration Rate 103 mL/min (>60); Est Glom Filt Rate - Afr Amer 125 mL/min (>60); Glucose 174 mg/dL (74-106); High Density Lipoprotein 34 mg/dL; Potassium 4.3 mmol/L (3.5-5.1); Sodium Level 136 mmol/L (136-145); Triglycerides 1409 mg/dL
== END | disposition home or self-care (01) ==
LOC: LAB 08:11
PROVIDERS: PCP Nurse Practitioner; Referring Provider Nurse Practitioner; Visit Provider Nurse Practitioner
DX: E78.5 Hyperlipidemia, unspecified (principal); E11.9 Type 2 diabetes mellitus without complications; I10 Essential (primary) hypertension
CPT/HCPCS: 36415; 80048; 80061; 83036

== ENCOUNTER → 2024-06-01 | Outpatient (CLI) | payer MEDICARE, MEDICAID, SELFPAY ==
[2024-06-01 13:18] LABS: Absolute Lymphocyte Count 4.07 X10^3/uL (0.83-4.51); Absolute Neutrophil Count 5.4 X10^3/uL (2.0-7.7); Basophil# 0.05 X10^3/uL; Basophil% 0.5 % (0-1); Eosinophil# 0.14 X10^3/uL; Eosinophils% 1.4 % (0-5); Hematocrit 41.1 % (37-47); Hemoglobin 13.9 g/dL (12.0-15.0); Lymphocyte # 4.07 X10^3/ul (0.83-4.51); Lymphocyte % 39.7 % (19-41); Mean Corp Hgb Conc 33.8 g/dL (32-36); Mean Corpuscular Hgb 32.7 pg (27.0-32.0); Mean Corpuscular Volume 96.7 fL (81-99); Mean Platelet Vol. 11.1 fl (6.2-12.0); Monocyte# 0.53 X10^3/uL; Monocyte% 5.2 % (0-10); NRBC Flagged by Analyzer 0 % (0-5); Neutrophil # 5.41 X10^3/uL (2.7-7.7); Neutrophil % 52.8 % (47-70); Platelet Count 385 K/mm3 (150-450); RBC Distribution Width CV 13.3 % (11.6-14.6); RBC Distribution Width SD 47.5 fl (35.1-43.9); Red Blood Count 4.25 M/mm3 (4.2-5.4); White Blood Count 10.2 K/mm3 (4.4-11.0)
[2024-06-01 13:51] LABS: ALB/GLOB Ratio 1.6 RATIO (0.9-2.4); AST(SGOT) 26 U/L (<=31); Alanine Aminotransfer ALT/SGPT 22 U/L (<=34); Albumin, Serum 4.2 g/dL (3.5-5.0); Alkaline Phosphatase 65 U/L (35-104); Anion Gap 13 (5-15); BUN 6 mg/dL (4-19); BUN/Creat Ratio 7.2 RATIO (10-20); Calcium,Total 9.1 mg/dL (7.6-11.0); Chloride 102 mmol/L (98-108); Cholesterol 160 mg/dL (<=200); Creatinine, Serum 0.87 mg/dL (0.70-1.20); EST Glomerular Filtration Rate 83 (>60); Ferritin 60 ng/mL (22-378); Globulin 2.5 g/dL (2.2-4.2); Glucose 120 mg/dL (70-99); High Density Lipoprotein 48 mg/dL; Low Density Lipoprotein Calc. -6 mg/dL; Potassium 4.4 mmol/L (3.3-5.1); Protein, Total 6.7 g/dL (5.9-8.4); Sodium Level 134 mmol/L (133-145); Total Bilirubin 0.17 mg/dL (0.00-1.30); Triglycerides 591 mg/dL; Very Low Density Lipoprotein 118 mg/dL (5-40); Vitamin B12 570 pg/mL (180-914); Vitamin D,25 Hydroxy 12.5 ng/mL (30-100); cholesterol:hdl ratio screen 3.35
[2024-06-01 14:12] LABS: Microalbumin,Random Urine < 12.0 mg/L (NO RANGE EST.)
== END | disposition home or self-care (01) ==
LOC: VSLAB 10:35
PROVIDERS: PCP Family Medicine; Visit Provider Family Medicine
DX: E11.9 Type 2 diabetes mellitus without complications (principal); E78.2 Mixed hyperlipidemia; K21.9 Gastro-esophageal reflux disease without esophagitis; F32.9 Major depressive disorder, single episode, unspecified
CPT/HCPCS: 36415; 80053; 80061; 82043; 82306; 82607; 82728; 84443; 85025

== ENCOUNTER 2024-12-06 09:00 | Outpatient (RCR) | payer MEDICARE, MEDICAID, SELFPAY ==
--- NOTE | 2024-11-16 14:18 | HP.PTEVAL_ITS ---
Patient's Visit Information Visit Information Visit Information: COLLEEN MILIAN is a 49 year old F referred to Physical Therapy by KATHLEEN Epperson with a diagnosis of LEFT SHOULDER PAIN. Date of Evaluation: 11/16/24 Physical Therapist: Roberto Taylor, PT, Cert MDT, OCS Visit Plan Frequency: 2x /Week Duration: 4 Weeks Plan: PT INTERVENTIONS ROM SHOULDER ,RTC/SCAPULAR STRENGTHENING ,POSTURAL EX'S AND MODALITIES Subjective Subjective: This 49 y/o female presents to physical therapy with left shoulder pain. Patient fell on left side ~ 6 weeks ago. Seen Family DR no x-rays . Patient did have x-rays - at [facility] . Patient is in constant ,located global described as sharp pain. Patient needs PT before MRI . Plan to possible orthopedic consult . Aggravating factors lifting OH ,self hygiene ,above 90 degrees and affects housework tasks cleaning.Alleviating rest . Patient denies tingling/ paresthesia. Pain affects sleeping. DR thinks RTC injury. Patient has no tx . Patient condition affects QOL and function left shoulder.Patient goals to decrease pain. SOCAIL: single VOCATION: disability Pain Left Shoulder: Pain Intensity (Out of 10): 10 Objective Objective: POSTURE: rounded shoulders forward PALAPTION: tender AC NEURO: denies paresthesia/tingling AROM: shoulder flexion 90 degrees ,abduction 90 degrees ,ER 90 -PAIN ,IT pelvis PROM: 150 degrees flexion/abduction MMT: infraspinatus 5.8 ,subscapularis 7.1,supraspinatus 7.1.deltoid 7.9 Special Tests L Shoulder External Rotation Lag Test - RC Tear: Negative L Shoulder Lift Off Test - Subscapular Tear: Negative L Shoulder Drop Sign - IS Test: Negative L Shoulder Empty Can - SS: Positive L Shoulder Belly Press - SupScap: Negative L Shoulder Neer - Impingement: Positive L Shoulder Garcia Ben - Impingement: Positive L Shoulder O'Briens - SLAP/A-C: Negative Goals Goal 1:: Patient to be I with HEP for shoulder Goal Time Frame: 4-6 Weeks Goal 2:: Patient to improve AROM shoulder flexion /abduction 140 degrees to improve OH activities Goal Time Frame: 4-6 Weeks Goal 3:: Patient to improve peak force RTC /deltoid by 5 # strength to improve function with ADLS Goal Time Frame: 4-6 Weeks Goal 4:: Patient to improve quick dash by 5 points to improve QOL and function Goal Time Frame: 4-6 Weeks Goal 5:: Patient demonstrate 50% improvement with less pain and improved function. Goal Time Frame: 4-6 Weeks Rehabilitation Potential Physical Therapy Diagnosis: This patient has left shoulder pain with weakness RTC ,and decrease ROM impairs ADLS and housework tasks thus benefit from skilled PT Rehabilitation Potential: Good Anticipated Interventions Patient/Client Instruction: Educate patient on: Condition and Plan of Care For the Purpose of:: To decrease pain, To increase ROM, To improve muscle performance and motor function, To improve ability to perform ADL's, To increase tolerance to activity/condition/position, To improve ability of physical actions for home/community/work/leisure, To improve health of tissue, To decrease soft tissue restriction, To increase flexibility/ROM and To improve tolerance to ADL's Therapeutic Exercise to Include: Strength training, Postural training, F lexibilty training, Passive ROM, Active ROM and Scapular Strength/Stabilization Comment: RTC For the Purpose of:: To decrease pain, To increase ROM, To improve muscle performance and motor function, To improve ability to perform ADL's, To increase tolerance to activity/condition/position, To improve ability of physical actions for home/community/work/leisure, To improve health of tissue, To decrease soft tissue restriction, To increase flexibility/ROM and To improve tolerance to ADL's TENS: Yes IF ES: Yes Cryotherapy (ice pack, ice massage): Yes Thermo therapy (hot pack): Yes Ultrasound (thermal/non thermal): Yes For the Purpose of:: To decrease pain, To increase ROM, To improve nutrient delivery to tissue, To increase oxygenation perfusion, To improve health of tissue and To decrease soft tissue restriction Text: Thank you for the opportunity to evaluate your patient. For Medicare and Medicare HMO plans, please review the plan of care and approve it. It will need to be FAXED BACK to us at [phone] for Medicare purposes. For Medicare only, by signing this I certify the plan of care. Please let me know if there are questions or concerns regarding this plan of care. Physician Signature: Date:
--- NOTE | 2024-12-13 14:23 | HP.PT.NRP ---
Patient Information Patient Information: COLLEEN MILIAN was seen in my office for initial evaluation on 11/16/24. The following Plan of Care was established for this patient: POC Established Initial Frequency: 2x /Week Initial Duration: 4 Weeks Anticipated Interventions Patient/Client Instruction: Educate patient on: Condition and Plan of Care For the Purpose of:: To decrease pain, To increase ROM, To improve muscle performance and motor function, To improve ability to perform ADL's, To increase tolerance to activity/condition/position, To improve ability of physical actions for home/community/work/leisure, To improve health of tissue, To decrease soft tissue restriction, To increase flexibility/ROM and To improve tolerance to ADL's Therapeutic Exercise to Include: Strength training, Postural training, Flexibilty training, Passive ROM, Active ROM and Scapular Strength/Stabilization For the Purpose of:: To decrease pain, To increase ROM, To improve muscle performance and motor function, To improve ability to perform ADL's, To increase tolerance to activity/condition/position, To improve ability of physical actions for home/community/work/leisure, To improve health of tissue, To decrease soft tissue restriction, To increase flexibility/ROM and To improve tolerance to ADL's TENS: Yes IF ES: Yes Cryotherapy (ice pack, ice massage): Yes Thermo therapy (hot pack): Yes Ultrasound (thermal/non thermal): Yes For the Purpose of:: To decrease pain, To increase ROM, To improve nutrient delivery to tissue, To increase oxygenation perfusion, To improve health of tissue and To decrease soft tissue restriction Last Seen Last Seen: This patient was last seen in our office . Pertinent comments regarding their Physical therapy will appear below: Patient was seen for PT for left shoulder pain with possible RTC ,stated PT not helping and making symptoms worse thus d/c At this point I will be discontinuing this patient from physical therapy. I would be happy to see this patient again in the future if found appropriate by the physician. Thank you! Roberto Taylor, PT, Cert MDT, OCS
== END 2024-12-06 19:00 | disposition home or self-care (01) ==
LOC: PT 09:00
PROVIDERS: PCP Family Medicine; Referring Provider Nurse Practitioner Family; Visit Provider Nurse Practitioner Family
DX: S46.012D Strain of muscle(s) and tendon(s) of the rotator cuff of left shoulder, subsequent encounter (principal)
CPT/HCPCS: 97035; 97110; 97162; 97530